=== PATIENT | male | born 1930 | race Hispanic/Latino ===

== ENCOUNTER 2016-10-09 11:29 | Inpatient (IN) | payer MEDICARE ==
[2016-10-09] MEDS ORDERED: Sodium Chloride 0.9% 1,000 ML IV ONE (11:53)
[2016-10-09] MEDS ORDERED: Sodium Chloride 0.9% 1,000 ML ONE ×2 (12:05→17:41)
[2016-10-09 12:16] LABS: BASO # 0.1 K/uL (0.0-0.2); BASO % 0.6 % (0.0-2.0); EOS # 0.1 K/uL (0.0-0.7); EOS % 0.8 % (0.0-4.0); HEMATOCRIT 31.5 % (35.0-51.0); LYMPH # 1.3 K/uL (1.0-4.3); LYMPH % 7.1 % (20.0-40.0); MEAN CORPUSCULAR HGB CONC 33.2 g/dL (33.0-37.0); MEAN PLATELET VOLUME 7.9 fL (7.2-11.7); MONO # 1.8 K/uL (0.0-0.8); MONO % 9.9 % (0.0-10.0); RED CELL DISTRIBUTION WIDTH 14.7 % (11.5-14.5)
[2016-10-09 12:25] LABS: POTASSIUM 4.8 mmol/L (3.6-5.2)
[2016-10-09 12:27] LABS: ALB/GLOB RATIO 0.9 (1.0-2.1); BILIRUBIN,TOTAL 0.7 mg/dL (0.2-1.3); TOTAL PROTEIN 6.6 g/dL (6.3-8.3)
[2016-10-09 12:31] LABS: MEAN CELL VOLUME 81.3 fL (80.0-94.0); PLATELET COUNT 455 K/uL (130-400); WHITE BLOOD COUNT 18.3 K/uL (4.8-10.8)
[2016-10-09] MEDS ORDERED: Iohexol 240 (50 ml) PO ONE (12:44)
[2016-10-09 12:48] LABS: RBC URINE 14 /hpf (0-3); URINE BACTERIA OCC (<OCC); URINE BILIRUBIN NEGATIVE (NEGATIVE); URINE BLOOD 1+ (NEGATIVE); URINE COLOR Yellow (YELLOW); URINE GLUCOSE (UA) NORMAL (Normal); URINE KETONE NEGATIVE (NEGATIVE); URINE LEUKOCYTE ESTERASE 1+ Leu/uL (Negative); URINE PROTEIN NEGATIVE (NEGATIVE); URINE UROBILINOGEN NORMAL mg/dL (0.2-1.0); WBC URINE 13 /hpf (0-5)
--- NOTE | 2016-10-09 12:53 | C.PDOC ---
History Of Present Illness 86 y/oo male PMH of HTN, DM presents to the ED with complains of left lower abdominal pain x6 days. Pain is mild and intermittent. Denies fever, nausea, vomiting, diarrhea, constipation, urinary complaints, change in appetite or any other complaints. Patient is poor historian. Time Seen by Provider: 10/09/16 11:44 Chief Complaint (Nursing): Abdominal Pain History Per: Patient History/Exam Limitations: no limitations, other (poor historian) Onset/Duration Of Symptoms: Days, Intermittent Episodes Current Symptoms Are (Timing): Still Present Severity: Mild Location Of Pain/Discomfort: LLQ Radiation Of Pain To:: None Quality Of Discomfort: "Pain" Associated Symptoms: denies: Fever, Nausea, Vomiting, Diarrhea, Constipation Exacerbating Factors: None Alleviating Factors: None Recent travel outside of the [place]: No Past Medical History Reviewed: Historical Data, Nursing Documentation, Vital Signs Vital Signs: Last Vital Signs Temp 97.5 F L 10/09/16 13:45 Pulse 88 10/09/16 17:21 Resp 12 10/09/16 17:21 BP 166/75 H 10/09/16 17:21 Pulse Ox 99 10/09/16 17:54 - Medical History PMH: Benign Prostatic Hyperplasia, HTN Denies: Chronic Kidney Disease Family History: States: Unknown Family Hx - Social History Hx Alcohol Use: No Hx Substance Use: No - Immunization History Hx Tetanus Toxoid Vaccination: Yes Hx Influenza Vaccination: Yes Hx Pneumococcal Vaccination: Yes Review Of Systems Constitutional: Negative for: Fever Cardiovascular: Negative for: Chest Pain Respiratory: Negative for: Shortness of Breath Gastrointestinal: Positive for: Abdominal Pain. Negative for: Nausea, Vomiting , Diarrhea, Constipation Genitourinary: Negative for: Dysuria, Hematuria Musculoskeletal: Negative for: Back Pain Skin: Negative for: Rash Physical Exam - Physical Exam Appears: Non-toxic, No Acute Distress Skin: Warm, Dry, No Rash Head: Atraumatic, Normacephalic Eye(s): bilateral: Normal Inspection, EOMI Nose: Normal Oral Mucosa: Moist Neck: Normal, Normal ROM, Supple Chest: Symmetrical, No Tenderness Cardiovascular: Rhythm Regular, No Murmur Respiratory: Normal Breath Sounds, No Accessory Muscle Use, No Rales, No Rhonchi , No Wheezing Gastrointestinal/Abdominal: Soft, Tenderness (LLQ tenderness), No Guarding, No Rebound Back: Normal Inspection, No CVA Tenderness Extremity: Normal ROM, No Pedal Edema Extremity: Bilateral: Atraumatic Neurological/Psych: Oriented x3, Normal Speech Gait: Unable To Assess ED Course And Treatment - Laboratory Results Result Diagrams: 10/09/16 12:04 10/09/16 12:04 Lab Interpretation: Abnormal O2 Sat by Pulse Oximetry: 99 (room air) Pulse Ox Interpretation: Normal - CT Scan/US CT abdomen Other Rad Studies (CT/US): Read By Radiologist, Radiology Report Reviewed CT/US Interpretation: Accession No. : [id number]. Patient Name / ID : DAMON GARCIA / [id number]. Exam Date : 10/09/2016 14:26:38 ( Approved ). Study Comment : Sex / Age : M / 86Y. Creator : Essence So MD. Dictator : Essence So MD. Office Machinery Or Equipment Installer : Marketing And Communications Officer : Essence So MD. Approver2 : Report Date : 10/09/2016 15:59:27. My Comment : . PROCEDURE: CT Abdomen and Pelvis without IV contrast. HISTORY: left side abdominal pain. COMPARISON: None available. TECHNIQUE: Contiguous axial images of the abdomen and pelvis. Oral contrast was administered. No IV contrast given. Coronal and Sagittal reformats generated. Radiation dose: Total exam DLP = 974.97 mGy-cm. This CT exam was performed using one or more of the following dose reduction techniques: Automated exposure control, adjustment of the mA and/or kV according to patient size, and/or use of iterative reconstruction technique. FINDINGS: There is limited evaluation of the solid organs without the administration of IV contrast. LOWER THORAX: Small right-sided pleural effusion associated consolidation. No visible pneumothorax. Partially imaged dense coronary artery and valvular calcifications. Small hiatal hernia. LIVER: Grossly unremarkable unenhanced appearance. Small hepatic ascites. GALLBLADDER AND BILE DUCTS: High-density material within the gallbladder presumed to reflect sludge and gallstones. Asymmetric questionable wall thickening involving the nondependent portion of the gallbladder. Correlate clinically for recent outside imaging to exclude possibility of vicarious excretion of contrast. PANCREAS: Atrophy. Otherwise grossly unremarkable unenhanced appearance. SPLEEN: Unremarkable unenhanced appearance. ADRENALS: 9 mm nodule, lateral limb right adrenal gland, indeterminate. 1.3 cm nodule medial limb left adrenal gland, likely adenoma. KIDNEYS AND URETERS: Bilateral hydroureter nephrosis. No obstructing calculus evident. 1.8 cm exophytic left and 2.4 cm right renal cyst. BLADDER: Urinary bladder is distended. REPRODUCTIVE: Heterogeneous markedly enlarged and irregular appearance of the prostate gland. APPENDIX: The appendix appears within normal limits of caliber. No secondary signs of acute appendicitis. BOWEL: Question gastric wall thickening however the stomach is decompressed and cannot be adequately evaluated. No evidence of small bowel obstruction. Cecal wall and terminal ileum appear thickened; correlate clinically for infectious or inflammatory etiologies. 4.8 cm short segment severe narrowing/ wall thickening of the rectosigmoid colon (sagittal image 95 ); appearance worrisome for malignant neoplasm. Recommend clinical correlation and colonoscopy if available. PERITONEUM: Small perihepatic ascites. No definite free air. LYMPH NODES: Scattered prominent mesenteric and retroperitoneal lymph nodes. VASCULATURE: Atherosclerotic calcifications. BONES: Osseous demineralization. Severe multilevel degenerative changes. Irregularity the L5 vertebral body, similar to prior study. 6 mm sclerotic focus within the posterior aspect of the T11 vertebral body. 15 x 21 mm sclerotic region involving the left anterior aspect of the L3 vertebral body. OTHER FINDINGS: None. IMPRESSION: Small right pleural effusion and associated consolidation. Small perihepatic ascites. High-density material within the gallbladder presumed to reflect sludge and gallstones. Asymmetric questionable wall thickening involving the nondependent portion of the gallbladder. Correlate clinically for recent outside imaging to exclude possibility of vicarious excretion of contrast. 9 mm indeterminate right adrenal gland nodule. 1.3 cm left adrenal gland nodule, likely adenoma. Moderate bilateral hydroureteronephrosis. No obstructing calculus identified. Bilateral renal cysts. Enlarged heterogeneous and markedly irregular appearance of the prostate gland worrisome for prostate cancer. Recommend correlation with PSA and HUBER. Question gastric wall thickening however the stomach is decompressed and cannot be adequately evaluated. Cecal wall and terminal ileum appear thickened ; correlate clinically for infectious or inflammatory etiologies. 4.8 cm segment of severe wall thickening/narrowing of the rectosigmoid colon worrisome for malignant neoplasm. Recommend clinical correlation and colonoscopy when clinically feasible. Scattered prominent mesenteric and retroperitoneal lymph nodes. Sclerotic region involving the T11 vertebral body and L3 vertebral body. Giving concern for possibility of prostate cancer, recommend further evaluation with nuclear medicine bone scan. Additional findings as above. Medical Decision Making Medical Decision Making: Plan: * CT abdomen * labs * IV fluids * urine * pepcid Progress: Patient continued to complain of pain, Morphine was ordered Labs show leukocytosis and renal failure. Patient has only one prior visit in 2014 with no RF. Patient poor historian and unsure of lab findings CT IMPRESSION: Small right pleural effusion and associated consolidation. Small perihepatic ascites. High-density material within the gallbladder presumed to reflect sludge and gallstones. Asymmetric questionable wall thickening involving the nondependent portion of the gallbladder. Correlate clinically for recent outside imaging to exclude possibility of vicarious excretion of contrast. 9 mm indeterminate right adrenal gland nodule. 1.3 cm left adrenal gland nodule, likely adenoma. Moderate bilateral hydroureteronephrosis. No obstructing calculus identified. Bilateral renal cysts. Enlarged heterogeneous and markedly irregular appearance of the prostate gland worrisome for prostate cancer. Recommend correlation with PSA and HUBER. Question gastric wall thickening however the stomach is decompressed and cannot be adequately evaluated. Cecal wall and terminal ileum appear thickened ; correlate clinically for infectious or inflammatory etiologies. 4.8 cm segment of severe wall thickening/narrowing of the rectosigmoid colon worrisome for malignant neoplasm. Recommend clinical correlation and colonoscopy when clinically feasible. Scattered prominent mesenteric and retroperitoneal lymph nodes. Sclerotic region involving the T11 vertebral body and L3 vertebral body. Giving concern for possibility of prostate cancer, recommend further evaluation with nuclear medicine bone scan. Additional findings as above. Given patient age, lab findings and abdominal pain with abnormal CT findings suggestive of infectious process and abnormal rectosigmoid wall thickening worrisome for malignancy, will admit patient. Call hospitalist who admits for Dr Rayo Spoke with hospitalist Dr Alcala who states Dr Espinoza will take case and send resident to ED. Patient to be admitted Disposition - Disposition Disposition: HOSPITALIZED Disposition Time: 16:50 Condition: STABLE - POA Present On Arrival: None - Clinical Impression Clinical Impression: LLQ abdominal pain, Renal failure, Colitis - PA / JITTERBUG OPERATOR / Resident Statement MD/DO has reviewed & agrees with the documentation as recorded. - Scribe Statement The provider has reviewed the documentation as recorded by the Rachel Arambula All medical record entries made by the Rachel were at my direction and personally dictated by me. I have reviewed the chart and agree that the record accurately reflects my personal performance of the history, physical exam, medical decision making, and the department course for this patient. I have also personally directed, reviewed, and agree with the discharge instructions and disposition. Decision To Admit - Pt Status Changed To: Hospital Disposition Of: Inpatient - Admit Certification Admit to Inpatient:: After my assessment, the patient will require hospitalization for at least two midnights. This is because of the severity of symptoms shown, intensity of services needed, and/or the medical risk in this patient being treated as an outpatient. - InPatient: Physician Admission Certification:: Patient with renal failure and abdominal pain with abnormal CT findings. Will admit to hospitalist service. - . Bed Request Type: Regular Admitting Physician: Chris Espinoza Patient Diagnosis: LLQ abdominal pain, Renal failure, Colitis
[2016-10-09] MEDS ORDERED: Iohexol 240 (50 ml) ONE (12:56)
[2016-10-09 13:08] LABS: EOSINOPHIL 1 % (0-4); NEUTROPHIL 80 % (50-75); TOTAL CELLS COUNTED 100
--- NOTE | 2016-10-09 16:01 | CT ---
PROCEDURE: CT Abdomen and Pelvis without IV contrast. HISTORY: left side abdominal pain COMPARISON: None available TECHNIQUE: Contiguous axial images of the abdomen and pelvis. Oral contrast was administered. No IV contrast given. Coronal and Sagittal reformats generated. Radiation dose: Total exam DLP = 974.97 mGy-cm. This CT exam was performed using one or more of the following dose reduction techniques: Automated exposure control, adjustment of the mA and/or kV according to patient size, and/or use of iterative reconstruction technique. FINDINGS: There is limited evaluation of the solid organs without the administration of IV contrast. LOWER THORAX: Small right-sided pleural effusion associated consolidation. No visible pneumothorax. Partially imaged dense coronary artery and valvular calcifications. Small hiatal hernia. LIVER: Grossly unremarkable unenhanced appearance. Small hepatic ascites. GALLBLADDER AND BILE DUCTS: High-density material within the gallbladder presumed to reflect sludge and gallstones. Asymmetric questionable wall thickening involving the nondependent portion of the gallbladder. Correlate clinically for recent outside imaging to exclude possibility of vicarious excretion of contrast. PANCREAS: Atrophy. Otherwise grossly unremarkable unenhanced appearance. SPLEEN: Unremarkable unenhanced appearance. ADRENALS: 9 mm nodule, lateral limb right adrenal gland, indeterminate. 1.3 cm nodule medial limb left adrenal gland, likely adenoma. KIDNEYS AND URETERS: Bilateral hydroureter nephrosis. No obstructing calculus evident. 1.8 cm exophytic left and 2.4 cm right renal cyst. BLADDER: Urinary bladder is distended. REPRODUCTIVE: Heterogeneous markedly enlarged and irregular appearance of the prostate gland. APPENDIX: The appendix appears within normal limits of caliber. No secondary signs of acute appendicitis. BOWEL: Question gastric wall thickening however the stomach is decompressed and cannot be adequately evaluated. No evidence of small bowel obstruction. Cecal wall and terminal ileum appear thickened; correlate clinically for infectious or inflammatory etiologies. 4.8 cm short segment severe narrowing/wall thickening of the rectosigmoid colon (sagittal image 95 ); appearance worrisome for malignant neoplasm. Recommend clinical correlation and colonoscopy if available. PERITONEUM: Small perihepatic ascites. No definite free air. LYMPH NODES: Scattered prominent mesenteric and retroperitoneal lymph nodes. VASCULATURE: Atherosclerotic calcifications. BONES: Osseous demineralization. Severe multilevel degenerative changes. Irregularity the L5 vertebral body, similar to prior study. 6 mm sclerotic focus within the posterior aspect of the T11 vertebral body. 15 x 21 mm sclerotic region involving the left anterior aspect of the L3 vertebral body. OTHER FINDINGS: None. IMPRESSION: Small right pleural effusion and associated consolidation. Small perihepatic ascites. High-density material within the gallbladder presumed to reflect sludge and gallstones. Asymmetric questionable wall thickening involving the nondependent portion of the gallbladder. Correlate clinically for recent outside imaging to exclude possibility of vicarious excretion of contrast. 9 mm indeterminate right adrenal gland nodule. 1.3 cm left adrenal gland nodule, likely adenoma. Moderate bilateral hydroureteronephrosis. No obstructing calculus identified. Bilateral renal cysts. Enlarged heterogeneous and markedly irregular appearance of the prostate gland worrisome for prostate cancer. Recommend correlation with PSA and HUBER. Question gastric wall thickening however the stomach is decompressed and cannot be adequately evaluated. Cecal wall and terminal ileum appear thickened ; correlate clinically for infectious or inflammatory etiologies. 4.8 cm segment of severe wall thickening/narrowing of the rectosigmoid colon worrisome for malignant neoplasm. Recommend clinical correlation and colonoscopy when clinically feasible. Scattered prominent mesenteric and retroperitoneal lymph nodes. Sclerotic region involving the T11 vertebral body and L3 vertebral body. Giving concern for possibility of prostate cancer, recommend further evaluation with nuclear medicine bone scan. Additional findings as above.
[2016-10-09] MEDS ORDERED: Sodium Chloride 0.9% 1,000 ML IV SCH ×2 (17:15→17:54)
[2016-10-09] MEDS ORDERED: Ciprofloxacin 400mg/200ml D5W 400 MG/200 ML BAG IVPB SCH (17:30)
[2016-10-09] MEDS ORDERED: Ciprofloxacin 400mg/200ml D5W 400 MG/200 ML BAG IVPB ONE (17:41)
[2016-10-09] MEDS ORDERED: Ciprofloxacin 200mg/100ml D5W 100 ML IVPB SCH (18:30)
--- NOTE | 2016-10-09 18:39 | CP.PCM.HP ---
<Keri Richardson - Last Filed: 10/09/16 19:20> History of Present Illness - History of Present Illness History of Present Illness: CC: "Pain in my belly" HPI: Patient is a 86 year old male with PMHx of HTN and DM who presents with complaint of abdominal pain. The patient was brought to the ED with his by a friend. Per patient, he has been having 10/10 lower abdominal pain for 4 days. He described the pain as pressure-like and constant. Patient states that he did not try taking any medications at home for the pain. His last bowel movement was 3 days ago and was normal. Denies bloody stool or changes in bowel movements. Patient also denies hematuria and dysuria. When asked if he has difficulty urinating he denies hematuria, dysuria, incontinence, and hesitation. Patient had prostatectomy in 1995 but he denies history of prostate cancer and states that he had the procedure to remove a mass. Patient can not recall the name of his urologist and states that he never followed up after the surgery. The patient denies fever, chills, nausea, vomiting, chest pain, palpitations, cough, recent weight loss, headache, and focal deficits. PMD: Perri PMHx: DM, HTN Surgical Hx: hernia repair, prostatectomy Family Hx: denies history of cancer in family Social Hx: Former smoker quit 30 years ago; denies EtOH and illicit drug use. Patient ambulates with a cane at home. Has a and two children. He lives with his and a friend who helps to take care of him. Allergies: no known drug allergies Present on Admission - Present on Admission Any Indicators Present on Admission: No Review of Systems - Constitutional Constitutional: As Per HPI. absent: Weight Gain, Weight Loss, Weakness - EENT Eyes: As Per HPI. absent: Blurred Vision, Change in Vision Ears: As Per HPI. absent: Dizziness Nose/Mouth/Throat: As Per HPI. absent: Sore Throat - Cardiovascular Cardiovascular: As Per HPI. absent: Chest Pain, Dyspnea, Palpitations, Pedal Edema - Respiratory Respiratory: As Per HPI. absent: Cough, Dyspnea, Wheezing, Chest Congestion - Gastrointestinal Gastrointestinal: As Per HPI, Abdominal Pain, Constipation. absent: Change in Bowel Habits, Diarrhea, Dysphagia, Nausea, Vomiting - Genitourinary Genitourinary: As Per HPI, Bladder Distension. absent: Change in Urinary Stream , Difficulty Urinating, Dysuria, Flank Pain, Hematuria, Urinary Frequency - Musculoskeletal Musculoskeletal: As Per HPI. absent: Back Pain, Muscle Weakness - Integumentary Integumentary: As Per HPI. absent: New Lesions, Rash - Neurological Neurological: As Per HPI. absent: Dizziness, Numbness - Psychiatric Psychiatric: As Per HPI - Endocrine Endocrine: As Per HPI. absent: Fatigue, Palpitations Past Patient History - Past Medical History & Family History Past Medical History?: Yes - Past Social History Smoking Status: Former Smoker - CARDIAC Hx Hypertension: Yes - PULMONARY Hx Respiratory Disorders: No - NEUROLOGICAL Hx Neurological Disorder: No - HEENT Hx HEENT Problems: No - RENAL Hx Chronic Kidney Disease: No - ENDOCRINE/METABOLIC Hx Diabetes Mellitus Type 2: Yes - HEMATOLOGICAL/ONCOLOGICAL Hx Blood Disorders: No - MUSCULOSKELETAL/RHEUMATOLOGICAL Hx Osteoarthritis: Yes - GASTROINTESTINAL Hx Gastrointestinal Disorders: No - GENITOURINARY/GYNECOLOGICAL Hx Genitourinary Disorders: No - PSYCHIATRIC Hx Substance Use: No - SURGICAL HISTORY Hx Surgeries: Yes Other/Comment: Prostate - ANESTHESIA Hx Anesthesia: No Hx Anesthesia Reactions: No Hx Malignant Hyperthermia: No Meds Allergies/Adverse Reactions: Allergies Allergy/AdvReac Type Severity Reaction Status Date / Time No Known Allergies Allergy Verified 10/09/16 11:38 Physical Exam - Constitutional Appears: No Acute Distress, Unkempt - Head Exam Head Exam: ATRAUMATIC, NORMOCEPHALIC - Eye Exam Eye Exam: EOMI. absent: Nystagmus Pupil Exam: NORMAL ACCOMODATION Additional comments: right eyelid drooping (per patient is chronic) - ENT Exam ENT Exam: Mucous Membranes Dry - Neck Exam Neck exam: Negative for: Lymphadenopathy - Respiratory Exam Respiratory Exam: Rhonchi (bilateral lower lobes), NORMAL BREATHING PATTERN. absent: Accessory Muscle Use, Wheezes, Respiratory Distress - Cardiovascular Exam Cardiovascular Exam: REGULAR RHYTHM, +S1, +S2. absent: Irregular Rhythm - GI/Abdominal Exam GI & Abdominal Exam: Distended, Firm, Normal Bowel Sounds, Pulsatile Mass ( bladder distended and palpable). absent: Guarding - Extremities Exam Extremities exam: Positive for: normal inspection, pedal pulses present. Negative for: pedal edema, tenderness - Neurological Exam Neurological exam: Alert, CN II-XII Intact, Oriented x3 - Psychiatric Exam Psychiatric exam: Normal Affect, Normal Mood - Skin Skin Exam: Dry, Intact, Normal Color, Warm Results - Vital Signs Recent Vital Signs: Last Vital Signs Temp 97.5 F L 10/09/16 13:45 Pulse 88 10/09/16 17:21 Resp 12 10/09/16 17:21 BP 166/75 H 10/09/16 17:21 Pulse Ox 99 10/09/16 17:54 - Labs Result Diagrams: 10/09/16 12:04 10/09/16 12:04 Assessment & Plan - Assessment and Plan (Free Text) Assessment: 1. Prostate mass CT abd/pelvis- enlarged heterogeneous and irregular appearance of the prostate gland worrisome for prostate cancer. Bladder distended. Nair catheter insertion was not successful in the ED. Dr Ramirez was called by ED and will attempt suprapubic catheter. Consulted Urologist Dr Ramirez- help appreciated Consulted Heme/onc Dr Mishra- nithin appreciated Morphine 2mg IV q4h prn pain Consider bone scan to evaluate for metastasis 2. Hydronephrosis CT abd/pelvis- Moderate bilateral hydroureteronephrosis, no obstructing calculus identified Likely secondary to prostate mass obstruction BUN/Cr 81/3.[address] Ramirez- nithin appreciated f/u urine culture 3. SHANNAN Basline kidney function unknown BUN/Cr 81/3.9 Consider secondary to hydronephrosis IVF NS @150 cc/hr Monitor I/Os 4. Colitis CT abd- cecal wall and terminal ileum appear thickened WBC 18.3 with left shift, afebrile Start IV Flagyl 500mg q8h and Cipro 400mg IV q12h f/u blood culture Consulted GI Dr Ponce- nithin appreciated Liquid diet until recommendations 5. Colon mass CT abd- 4.8cm segment of severe wall thickening/narrowing of the rectosigmoid colon worrisome for malignant neoplasm Consulted Surgery Dr Coley- help appreciated Consulted GI Dr Ponce- nithin appreciated Consulted Heme/onc Dr Mishra- nithin appreciated 6. HTN Continue home medication Losartan 50mg PO daily Vitals q4h Will monitor and adjust meds as needed 7. Diabetes Mellitus f/u HgA1C Accuchecks ACHS ISS Hold home metformin due to SHANNAN. Continue home Glimepiride 4mg PO BID 8. Anemia Hgb 10.5 Will monitor at this time 9. Pleural effusion CT- small right pleural effusion and associated consolidation Duonebs 3ml INH q6h [facility] 2L NC O2 as needed 10. Prophylactic measures Heparin 5000u SC q8h Protonix 40mg IV daily SCDs PT/OT evaluation Palliative care consult to discuss plan for end of life care and code status <Chris Espinoza H - Last Filed: 10/10/16 07:56> Results - Vital Signs Recent Vital Signs: Last Vital Signs Temp 97.7 F 10/10/16 07:30 Pulse 66 10/10/16 07:30 Resp 20 10/10/16 07:30 BP 156/65 H 10/10/16 07:30 Pulse Ox 99 10/10/16 07:30 - Labs Result Diagrams: 10/09/16 21:50 10/09/16 21:50 Labs: Laboratory Results - last 24 hr 10/09/16 10/09/16 10/09/16 21:43 21:50 21:50 WBC 17.8 H RBC 3.82 L Hgb 10.3 L Hct 31.0 L MCV 81.1 MCH 27.1 MCHC 33.4 RDW 15.2 H Plt Count 440 H MPV 7.3 Neut % (Auto) 83.4 H Lymph % (Auto) 5.5 L Hartley % (Auto) 9.3 Eos % (Auto) 1.1 Baso % (Auto) 0.7 Neut # 14.8 H Lymph # 1.0 Hartley # 1.7 H Eos # 0.2 Baso # 0.1 Neutrophils % (Manual) 83 H Lymphocytes % (Manual) 3 L Monocytes % (Manual) 13 H Eosinophils % (Manual) 1 Platelet Estimate Slightly increased H Anisocytosis (manual) Slight PT 15.4 H INR 1.3 APTT 29 Sodium Potassium Chloride Carbon Dioxide Anion Gap BUN Creatinine Est GFR ( Amer) Est GFR (Non-Af Amer) POC Glucose (mg/dL) 193 H Random Glucose Calcium Phosphorus Magnesium Total Bilirubin AST ALT Alkaline Phosphatase Total Protein Albumin Globulin Albumin/Globulin Ratio 10/09/16 10/10/16 21:50 07:19 WBC RBC Hgb Hct MCV MCH MCHC RDW Plt Count MPV Neut % (Auto) Lymph % (Auto) Hartley % (Auto) Eos % (Auto) Baso % (Auto) Neut # Lymph # Hartley # Eos # Baso # Neutrophils % (Manual) Lymphocytes % (Manual) Monocytes % (Manual) Eosinophils % (Manual) Platelet Estimate Anisocytosis (manual) PT INR APTT Sodium 130 L Potassium 4.6 Chloride 99 Carbon Dioxide 16 L Anion Gap 20 BUN 80 H Creatinine 3.9 H Est GFR ( Amer) 18 Est GFR (Non-Af Amer) 15 POC Glucose (mg/dL) 135 H Random Glucose 161 H Calcium 7.7 L Phosphorus 6.8 H Magnesium 1.8 Total Bilirubin 0.7 AST 13 L ALT 22 Alkaline Phosphatase 71 Total Protein 6.6 Albumin 3.0 L Globulin 3.5 Albumin/Globulin Ratio 0.9 L Attending/Attestation - Attestation I have personally seen and examined this patient.: Yes I have fully participated in the care of the patient.: Yes I have reviewed all pertinent clinical information: Yes Notes (Text): Medical attending: Patient was seen and examined by me in the emergency room with certified medical coding specialist. At the CAT scan of the abdomen and returned and it showed a lot of findings including a very distended bladder with bilateral hydronephrosis. There are areas of his colon that are very concerning for malignancy as well. There also suggested findings of possible colitis as well. He does have elevated white blood cell count 17.9, abx have been started and these were later changed since the patient has a creatinine that is also elevated. On exam it seems like his abdomen was quite full with palpation and considering his distended bladder on the CAT scan we asked for a Nair catheter to be placed however very late in the night we were informed that they were not able to pass the Nair catheter. At this time were still pending on a decision if the patient should have a cystoscopy versus a suprapubic catheter placement. Per review of older notes his creatinine about 2 years ago was under 1, at this time it's 3.9 - CT report suggest a very enlarged protate and possible malignancy as well. Unfortunately patient is a poor historian and is not able to explain to us much. So at this time because of these extensive finding will need to reach out to family as well as the patient's PMD
--- NOTE | 2016-10-09 19:25 | CP.PCM.CON ---
History of Present Illness - History of Present Illness History of Present Illness: General Surgery Consult Re: Colon mass HPI: 86M presents to ED C/O lower abdominal pain. Pt is not completely reliable as a historian. States he has had constant 10/10 lower abd pain x 5 days. Never had this pain before. Last BM was 4 days ago and was soft and dark. Denies blood in BM, hematuria and dysuria. States when he urinates, frequently only little dribbles come out . Per pt, had prostate surgery in 1995 to remove a mass, denies cancer. States his last colonoscopy was 6 months ago at this hospital but he cannot say who the doctor was or what the results were. There are no records of a hospital visit here for colonoscopy. Denies F/C , N/V, SOB, chest pain, recent weight loss. Currently, reports improving abd pain. PMH: DM, HTN PSH: prostate surgery, CEA, Hernia repair SH: Former smoker quit 30 years ago. Denies EtOH and drug use. All: NKDA Meds: See AUG, on ASA 81mg Review of Systems - Review of Systems All systems: reviewed and no additional remarkable complaints except (as per HPI ) Past Patient History - Past Medical History & Family History Past Medical History?: Yes - Past Social History Smoking Status: Former Smoker - CARDIAC Hx Hypertension: Yes - PULMONARY Hx Respiratory Disorders: No - NEUROLOGICAL Hx Neurological Disorder: No - HEENT Hx HEENT Problems: No - RENAL Hx Chronic Kidney Disease: No - ENDOCRINE/METABOLIC Hx Diabetes Mellitus Type 2: Yes - HEMATOLOGICAL/ONCOLOGICAL Hx Blood Disorders: No - MUSCULOSKELETAL/RHEUMATOLOGICAL Hx Osteoarthritis: Yes - GASTROINTESTINAL Hx Gastrointestinal Disorders: No - GENITOURINARY/GYNECOLOGICAL Hx Genitourinary Disorders: No - PSYCHIATRIC Hx Substance Use: No - SURGICAL HISTORY Hx Surgeries: Yes Other/Comment: Prostate - ANESTHESIA Hx Anesthesia: No Hx Anesthesia Reactions: No Hx Malignant Hyperthermia: No Meds Allergies/Adverse Reactions: Allergies Allergy/AdvReac Type Severity Reaction Status Date / Time No Known Allergies Allergy Verified 10/09/16 11:38 - Medications Medications: Current Medications Albuterol/Ipratropium (Duoneb 3 Mg/0.5 Mg (3 Ml) Ud) 3 ml INH RQ6 [facility] Aspirin (Aspirin Chewable) 81 mg PO DAILY [facility] Gabapentin (Neurontin) 800 mg PO TID [facility] Glimepiride (Amaryl) 4 mg PO BID [facility] Heparin Sodium (Porcine) (Heparin) 5,000 units SC Q8 [facility] Ciprofloxacin (Cipro 400mg/200ml Dsw) 400 mg in 200 mls @ 133 mls/hr IVPB Q12H [facility] Last Admin: 10/09/16 18:28 Dose: Not Given Sodium Chloride (Sodium Chloride 0.9%) 1,000 mls @ 150 mls/hr IV .Q6H40M [facility] Metronidazole (Flagyl) 500 mg in 100 mls @ 100 mls/hr IVPB Q8 [facility] Ciprofloxacin (Cipro 200mg/100ml D5w) 100 mls @ 100 mls/hr IVPB Q18H [facility] Insulin Human Regular (Novolin R) 0 unit SC ACHS [facility] PRN Reason: Protocol Losartan Potassium (Cozaar) 50 mg PO DAILY [facility] Morphine Sulfate (Morphine) 2 mg IVP Q4 PRN PRN Reason: Pain, severe (8-10) Pantoprazole Sodium (Protonix Inj) 40 mg IVP DAILY [facility] Physical Exam - Constitutional Appears: Non-toxic, No Acute Distress - Head Exam Head Exam: ATRAUMATIC, NORMOCEPHALIC - Eye Exam Eye Exam: EOMI. absent: Scleral icterus - ENT Exam ENT Exam: Mucous Membranes Dry Additional comments: trachea midline - Respiratory Exam Respiratory Exam: NORMAL BREATHING PATTERN. absent: Respiratory Distress - Cardiovascular Exam Cardiovascular Exam: RRR, +S1, +S2 - GI/Abdominal Exam GI & Abdominal Exam: Firm (in lower quadrants over midline), Soft, Tenderness ( mild in lower abdomen). absent: Distended, Guarding, Rebound, Rigid - Rectal Exam Rectal Exam: absent: Black Stool, Bloody Stool, Fecal Impaction Additional comments: normal location of prostate is irregular, spongy - Extremities Exam Extremities exam: Positive for: normal capillary refill. Negative for: calf tenderness, pedal edema - Back Exam Back exam: absent: CVA tenderness (L), CVA tenderness (R) - Neurological Exam Neurological exam: Alert, Oriented x3 - Psychiatric Exam Psychiatric exam: Normal Affect, Normal Mood - Skin Skin Exam: Dry, Warm Results - Vital Signs Recent Vital Signs: Last Vital Signs Temp 97.5 F L 10/09/16 13:45 Pulse 88 10/09/16 17:21 Resp 12 10/09/16 17:21 BP 166/75 H 05/03/17 17:21 Pulse Ox 99 10/09/16 18:19 - Labs Result Diagrams: 10/09/16 12:04 10/09/16 12:04 - Imaging and Cardiology CT scan - abdomen Status: Image reviewed by me, Report reviewed by me Assessment & Plan - Assessment and Plan (Free Text) Assessment: 86M with possible colon mass Plan: F/U GI consult. Will need colonoscopy to evaluate for mass/biopsy F/U Uro consult, possible suprapubic cath placement Abx per medical team IVF NPO Analgesia D/W Dr. Vianca Pagan PGY3
--- NOTE | 2016-10-09 20:05 | CP.PCM.PN ---
Subjective - Date & Time of Evaluation Date of Evaluation: 10/09/16 Time of Evaluation: 20:00 - Subjective Subjective: Asked to place garcia cath after ed staff failed in there attempt to pass cath. Attempt to pass cath onsucessful.Since pts bladder is not palpably distended and pt is comfortable either clear pt for cysto under anestesia or ask IR to place suprapubic cath under us guidance. Please notify me when pt cleared. Objective - Vital Signs/Intake and Output Vital Signs (last 24 hours): Temp Pulse Resp BP Pulse Ox 97.4 F L 74 20 175/71 H 99 10/09/16 19:30 10/09/16 19:30 10/09/16 19:30 10/09/16 19:30 10/09/16 19:30 - Medications Medications: Current Medications Albuterol/Ipratropium (Duoneb 3 Mg/0.5 Mg (3 Ml) Ud) 3 ml INH RQ6 [facility] Aspirin (Aspirin Chewable) 81 mg PO DAILY [facility] Gabapentin (Neurontin) 800 mg PO TID [facility] Glimepiride (Amaryl) 4 mg PO BID [facility] Heparin Sodium (Porcine) (Heparin) 5,000 units SC Q8 [facility] Ciprofloxacin (Cipro 400mg/200ml Dsw) 400 mg in 200 mls @ 133 mls/hr IVPB Q12H [facility] Last Admin: 10/09/16 18:28 Dose: Not Given Sodium Chloride (Sodium Chloride 0.9%) 1,000 mls @ 150 mls/hr IV .Q6H40M [facility] Metronidazole (Flagyl) 500 mg in 100 mls @ 100 mls/hr IVPB Q8 [facility] Ciprofloxacin (Cipro 200mg/100ml D5w) 100 mls @ 100 mls/hr IVPB Q18H [facility] Insulin Human Regular (Novolin R) 0 unit SC ACHS [facility] PRN Reason: Protocol Losartan Potassium (Cozaar) 50 mg PO DAILY [facility] Morphine Sulfate (Morphine) 2 mg IVP Q4 PRN PRN Reason: Pain, severe (8-10) Pantoprazole Sodium (Protonix Inj) 40 mg IVP DAILY [facility]
[2016-10-09] MEDS: Sodium Chloride 0.9% 1,000 ML IV SCH ×2 (20:26→22:07)
--- NOTE | 2016-10-09 21:40 | CP.PCM.PN ---
Subjective - Date & Time of Evaluation Date of Evaluation: 10/09/16 Time of Evaluation: 21:34 - Subjective Subjective: HOUSE DOC NOTE: -Patient was assessed this evening. Patient was not in acute distress, pain was well controlled. -The hospitalist team spoke with Dr. Lee and Dr. Mclean regarding coordination of care. Possibility of suprapubic catheter was discussed, to be further discussed this morning between IR, Urology, and Hospitalist team. Plan for coordinated approach for suprapubic catheter/cystoscopy between Urology and IR. -Changing antibiotic due to renal insufficiency. Avoid nephrotoxic medication. Stop Ceftriaxone. Start Rocephin 1Gm IVPB qd. -Keep patient NPO until resolution of bladder distention. -Pre-op clearance in processes (EKG, labs, CXR). Objective - Vital Signs/Intake and Output Vital Signs (last 24 hours): Temp Pulse Resp BP Pulse Ox 97.4 F L 74 20 175/71 H 99 10/09/16 19:30 10/09/16 19:30 10/09/16 19:30 10/09/16 19:30 10/09/16 19:30 - Medications Medications: Current Medications Albuterol/Ipratropium (Duoneb 3 Mg/0.5 Mg (3 Ml) Ud) 3 ml INH RQ6 [facility] Aspirin (Aspirin Chewable) 81 mg PO DAILY [facility] Gabapentin (Neurontin) 800 mg PO TID [facility] Metronidazole (Flagyl) 500 mg in 100 mls @ 100 mls/hr IVPB Q8 [facility] Sodium Chloride (Sodium Chloride 0.9%) 1,000 mls @ 50 mls/hr IV .Q20H [facility] Last Admin: 10/09/16 20:26 Dose: Not Given Ceftriaxone Sodium 1 gm/ (Sodium Chloride) 100 mls @ 100 mls/hr IVPB DAILY [facility] Insulin Human Regular (Novolin R) 0 unit SC ACHS [facility] PRN Reason: Protocol Morphine Sulfate (Morphine) 2 mg IVP Q4 PRN PRN Reason: Pain, severe (8-10) Pantoprazole Sodium (Protonix Inj) 40 mg IVP DAILY [facility]
[2016-10-09 21:56] LABS: BASO # 0.1 K/uL (0.0-0.2); BASO % 0.7 % (0.0-2.0); EOS # 0.2 K/uL (0.0-0.7); EOS % 1.1 % (0.0-4.0); LYMPH % 5.5 % (20.0-40.0); MEAN CELL VOLUME 81.1 fL (80.0-94.0); MEAN CORPUSCULAR HEMOGLOBIN 27.1 pg (27.0-31.0); MEAN CORPUSCULAR HGB CONC 33.4 g/dL (33.0-37.0); MEAN PLATELET VOLUME 7.3 fL (7.2-11.7); MONO # 1.7 K/uL (0.0-0.8); MONO % 9.3 % (0.0-10.0); PLATELET COUNT 440 K/uL (130-400); RED CELL DISTRIBUTION WIDTH 15.2 % (11.5-14.5); WHITE BLOOD COUNT 17.8 K/uL (4.8-10.8)
[2016-10-09] MEDS: (Novolin R) Insulin Human Regular 100 units/ml vial SC SCH (22:03)
[2016-10-09 22:04] LABS: INR 1.3
[2016-10-09 22:09] LABS: POTASSIUM 4.6 mmol/L (3.6-5.2)
[2016-10-09 22:11] LABS: ALB/GLOB RATIO 0.9 (1.0-2.1); BILIRUBIN,TOTAL 0.7 mg/dL (0.2-1.3); TOTAL PROTEIN 6.6 g/dL (6.3-8.3)
[2016-10-09 22:12] LABS: CALCIUM 7.7 mg/dl (8.6-10.4); MAGNESIUM 1.8 mg/dL (1.6-2.3); PHOSPHOROUS 6.8 mg/dL (2.5-4.5)
[2016-10-09 22:19] LABS: EOSINOPHIL 1 % (0-4); NEUTROPHIL 83 % (50-75); TOTAL CELLS COUNTED 100
--- NOTE | 2016-10-09 22:28 | CP.PCM.PN ---
Subjective - Date & Time of Evaluation Date of Evaluation: 10/09/16 Time of Evaluation: 22:20 - Subjective Subjective: Discussed with Dr Cavazos. Reeviewed options,with Him. I can procede with cystoscopy if medically acceptable. Pt may have Suprapubic cystotomy,or have bilat nephrostomies. Since bladder is not palpably distended suprapubic cystotomy might require us or ct or us guidance Please advise how you would like to procede. Ashley Objective - Vital Signs/Intake and Output Vital Signs (last 24 hours): Temp Pulse Resp BP Pulse Ox 97.4 F L 74 20 175/71 H 99 10/09/16 19:30 10/09/16 19:30 10/09/16 19:30 10/09/16 19:30 10/09/16 19:30 - Medications Medications: Current Medications Albuterol/Ipratropium (Duoneb 3 Mg/0.5 Mg (3 Ml) Ud) 3 ml INH RQ6 [facility] Aspirin (Aspirin Chewable) 81 mg PO DAILY [facility] Gabapentin (Neurontin) 800 mg PO TID [facility] Metronidazole (Flagyl) 500 mg in 100 mls @ 100 mls/hr IVPB Q8 [facility] Sodium Chloride (Sodium Chloride 0.9%) 1,000 mls @ 50 mls/hr IV .Q20H [facility] Last Admin: 10/09/16 22:07 Dose: 50 mls/hr Ceftriaxone Sodium 1 gm/ (Sodium Chloride) 100 mls @ 100 mls/hr IVPB DAILY [facility] Insulin Human Regular (Novolin R) 0 unit SC ACHS [facility] PRN Reason: Protocol Last Admin: 10/09/16 22:03 Dose: Not Given Morphine Sulfate (Morphine) 2 mg IVP Q4 PRN PRN Reason: Pain, severe (8-10) Pantoprazole Sodium (Protonix Inj) 40 mg IVP DAILY [facility] - Labs Labs: 10/09/16 21:50 10/09/16 21:50 PT 15.4 SECONDS (9.7-12.2) H 10/09/16 21:50 INR 1.3 10/09/16 21:50 APTT 29 SECONDS (21-34) 10/09/16 21:50
[2016-10-09] MEDS: metroNIDAZOLE IV 500 mg/100 ml 500 MG/100 ML BAG IVPB SCH (23:28)
[2016-10-10] MEDS: Albuterol-Ipratrop 3 mg / 0.5 (3 ml) UD INH SCH ×4 (02:07→19:42)
[2016-10-10] MEDS: metroNIDAZOLE IV 500 mg/100 ml 500 MG/100 ML BAG IVPB SCH ×3 (05:10→22:14)
--- NOTE | 2016-10-10 07:34 | CP.PCM.PN ---
<Lakisha Riossarah - Last Filed: 10/10/16 13:18> Subjective - Date & Time of Evaluation Date of Evaluation: 10/10/16 Time of Evaluation: 08:56 - Subjective Subjective: PGY 1 Medicine Note- Dr. Espinoza's service Pt seen and examined in no acute distress. Patient states that he abdominal pressure began 6 days ago and then intensified 2-3 days ago. Patient denies any current pain in the abdominal or suprapubic region, dysuria or hematuria. Patient accompanied by sales representative rural [employer] Rik Goyal who lives in the same building as patient. Mr. Goyal stated that he checks in on patient and patient's daily and is one of the few constant people in the patient's life. He would like to assume the role of power of productivity engineer as the patient's family is not involved in patient's life. He denies fevers, chills, nausea, vomiting, diarrhea, constipation at this time. Objective - Vital Signs/Intake and Output Vital Signs (last 24 hours): Temp Pulse Resp BP Pulse Ox 97.7 F 66 20 156/65 H 99 10/10/16 07:30 10/10/16 07:30 10/10/16 07:30 10/10/16 07:30 10/10/16 07:30 Intake and Output: 10/10/16 10/10/16 06:59 18:59 Intake Total 350 Balance 350 - Medications Medications: Current Medications Albuterol/Ipratropium (Duoneb 3 Mg/0.5 Mg (3 Ml) Ud) 3 ml INH RQ6 [facility] Last Admin: 10/10/16 02:07 Dose: Not Given Aspirin (Aspirin Chewable) 81 mg PO DAILY [facility] Gabapentin (Neurontin) 800 mg PO TID [facility] Metronidazole (Flagyl) 500 mg in 100 mls @ 100 mls/hr IVPB Q8 [facility] Last Admin: 10/10/16 05:10 Dose: 100 mls/hr Sodium Chloride (Sodium Chloride 0.9%) 1,000 mls @ 50 mls/hr IV .Q20H [facility] Last Admin: 10/09/16 22:07 Dose: 50 mls/hr Ceftriaxone Sodium 1 gm/ (Sodium Chloride) 100 mls @ 100 mls/hr IVPB DAILY [facility] Last Admin: 05/03/17 22:25 Dose: 100 mls/hr Insulin Human Regular (Novolin R) 0 unit SC ACHS [facility] PRN Reason: Protocol Last Admin: 10/09/16 22:03 Dose: Not Given Morphine Sulfate (Morphine) 2 mg IVP Q4 PRN PRN Reason: Pain, severe (8-10) Pantoprazole Sodium (Protonix Inj) 40 mg IVP DAILY [facility] - Labs Labs: 10/09/16 21:50 10/09/16 21:50 PT 15.4 SECONDS (9.7-12.2) H 10/09/16 21:50 INR 1.3 10/09/16 21:50 APTT 29 SECONDS (21-34) 10/09/16 21:50 - Constitutional Appears: Non-toxic, No Acute Distress - Head Exam Head Exam: ATRAUMATIC, NORMAL INSPECTION, NORMOCEPHALIC - Eye Exam Eye Exam: EOMI, Normal appearance, PERRL Pupil Exam: NORMAL ACCOMODATION - ENT Exam ENT Exam: Mucous Membranes Moist - Neck Exam Neck Exam: Full ROM - Respiratory Exam Respiratory Exam: NORMAL BREATHING PATTERN. absent: Wheezes - Cardiovascular Exam Cardiovascular Exam: +S1, +S2 - GI/Abdominal Exam GI & Abdominal Exam: Distended, Firm, Soft, Normal Bowel Sounds. absent: Guarding, Tenderness - Exam Exam: Bladder Distension - Extremities Exam Extremities Exam: Full ROM, Normal Capillary Refill. absent: Pedal Edema, Tenderness - Back Exam Back Exam: Full ROM - Neurological Exam Neurological Exam: Alert, Awake, CN II-XII Intact, Oriented x3 - Psychiatric Exam Psychiatric exam: Normal Affect, Normal Mood - Skin Skin Exam: Dry, Intact, Normal Color, Warm Assessment and Plan - Assessment and Plan (Free Text) Assessment: 1. Prostate mass CT abd/pelvis- enlarged heterogeneous and irregular appearance of the prostate gland worrisome for prostate cancer. Bladder distended. Nair catheter insertion was not successful in the ED after several attempts Consulted Urologist Dr Ramirez- Would like to go for cystoscopy 5/5 around noon. If unsuccessful, will try for suprapubic catheter. F/U recommendations. Pre- operative EKG, Chest Xray ordered. Consulted Heme/onc Dr Mishra- help appreciated Morphine 2mg IV q4h prn pain Consider bone scan to evaluate for metastasis Detsky score 10; Class II 7% complications for cardiac risk in noncardiac surgical procedure. 2. Hydronephrosis CT abd/pelvis- Moderate bilateral hydroureteronephrosis, no obstructing calculus identified Likely secondary to prostate mass obstruction BUN/Cr 81/3.[address] Ramirez- See recommendations above. f/u urine culture 3. SHANNAN Basline kidney function unknown BUN/Cr Elevated Consider secondary to hydronephrosis IVF NS @150 cc/hr Monitor I/Os 4. Colitis CT abd- cecal wall and terminal ileum appear thickened WBC stable mildly decreased with left shift, afebrile Start IV Flagyl 500mg q8h and Cipro 400mg IV q12h f/u blood culture Consulted GI Dr Ponce- help appreciated . Patient would benefit from colonscopy. 5. Colon mass CT abd- 4.8cm segment of severe wall thickening/narrowing of the rectosigmoid colon worrisome for malignant neoplasm Patient would benefit from colonscopy. Consulted Surgery Dr Coley- F/U recommendations Consulted GI Dr Ponce- F/U recommendations Consulted Heme/onc Dr Mishra- F/U recommendations 6. HTN Continue home medication Losartan 50mg PO daily Vitals q4h Will monitor and adjust meds as needed 7. Diabetes Mellitus HgA1C 6.6 Accuchecks ACHS ISS Hold home metformin due to SHANNAN. Continue home Glimepiride 4mg PO BID 8. Anemia Hgb 9.9 Will monitor at this time 9. Pleural effusion CT- small right pleural effusion and associated consolidation Duonebs 3ml INH q6h [facility] 2L NC O2 as needed 10. Prophylactic measures Protonix 40mg IV daily SCDs PT/OT evaluation Palliative care consult to discuss plan for end of life care and code status with patient and sales representative [employer] <Chris Espinoza H - Last Filed: 10/10/16 14:06> Objective - Vital Signs/Intake and Output Vital Signs (last 24 hours): Temp Pulse Resp BP Pulse Ox 97.7 F 76 20 156/65 H 99 10/10/16 07:30 10/10/16 08:59 10/10/16 07:30 10/10/16 07:30 10/10/16 07:30 Intake and Output: 10/10/16 10/10/16 06:59 18:59 Intake Total 350 Balance 350 - Medications Medications: Current Medications Albuterol/Ipratropium (Duoneb 3 Mg/0.5 Mg (3 Ml) Ud) 3 ml INH RQ6 [facility] Last Admin: 10/10/16 08:57 Dose: 3 ml Aspirin (Aspirin Chewable) 81 mg PO DAILY [facility] Last Admin: 10/10/16 09:19 Dose: Not Given Bisacodyl (Dulcolax) 10 mg PO ONCE ONE Stop: 10/10/16 17:01 Gabapentin (Neurontin) 100 mg PO TID [facility] Metronidazole (Flagyl) 500 mg in 100 mls @ 100 mls/hr IVPB Q8 [facility] Last Admin: 10/10/16 13:17 Dose: 100 mls/hr Sodium Chloride (Sodium Chloride 0.9%) 1,000 mls @ 50 mls/hr IV .Q20H [facility] Last Admin: 10/09/16 22:07 Dose: 50 mls/hr Ceftriaxone Sodium 1 gm/ (Sodium Chloride) 100 mls @ 100 mls/hr IVPB DAILY [facility] Last Admin: 10/10/16 09:22 Dose: 100 mls/hr Insulin Human Regular (Novolin R) 0 unit SC ACHS [facility] PRN Reason: Protocol Last Admin: 10/10/16 11:10 Dose: Not Given Metoclopramide HCl (Reglan) 5 mg IVP Q8 [facility] Last Admin: 10/10/16 13:19 Dose: 5 mg Morphine Sulfate (Morphine) 2 mg IVP Q4 PRN PRN Reason: Pain, severe (8-10) Pantoprazole Sodium (Protonix Inj) 40 mg IVP DAILY [facility] Last Admin: 10/10/16 09:22 Dose: 40 mg Polyethylene Glycol/Electrolytes (Golytely) 4,000 ml PO ONCE ONE Stop: 10/10/16 14:31 - Labs Labs: 10/10/16 08:48 10/10/16 08:48 PT 15.4 SECONDS (9.7-12.2) H 10/09/16 21:50 INR 1.3 10/09/16 21:50 APTT 29 SECONDS (21-34) 10/09/16 21:50 Attending/Attestation - Attestation I have personally seen and examined this patient.: Yes I have fully participated in the care of the patient.: Yes I have reviewed all pertinent clinical information, including history, physical exam and plan: Yes Notes (Text): Medical attending: Patient was seen and examined by me, agrees the above note by medical clerical assistant. The patient's sales representative [employer] was in the room. His knee was Yoni and he also helped answer the questions. The patient was awake he was alert and he knew where he was at and he knew his birthday. He was answering almost every question we asked him correctly. So we updated the patient as well as the patient's sales representative rural [employer] with regards to what was going on so far. As mentioned before the emergency room overnight tried to pass a Nair catheter however it was not successful and urology also try to pass a Nair catheter however this was not successful either. I spoke with Dr. Lee today and after we discussed the case she explained that he would prefer to try to do cystoscopy first before attempting to do a suprapubic catheter. He explained to me that he would like to do this sometime tomorrow. Furthermore I spoke with GI, Dr. Ponce and he would like to do a colonoscopy, however because of the size of the prostate and concern for cancer he would like to do the colonoscopy before urology does the cystoscopy. This is due to concerns for bleeding. So GI is going to tried to do the procedure early in the morning. In the meantime patient is on a liquid diet, and will be nothing by mouth at midnight. Continue with the IV antibody except this time. From what I being told by the caregiver, the patient's is also in the hospital as well and she is also very sick I'm told however I'm not the physician taking care of her. Thank you very much, Chris Espinoza
[2016-10-10 08:56] LABS: BASO # 0.1 K/uL (0.0-0.2); BASO % 0.3 % (0.0-2.0); EOS # 0.3 K/uL (0.0-0.7); EOS % 1.9 % (0.0-4.0); HEMATOCRIT 30.9 % (35.0-51.0); LYMPH # 1.2 K/uL (1.0-4.3); LYMPH % 7.4 % (20.0-40.0); MEAN CELL VOLUME 81.4 fL (80.0-94.0); MEAN CORPUSCULAR HEMOGLOBIN 26.1 pg (27.0-31.0); MEAN CORPUSCULAR HGB CONC 32.1 g/dL (33.0-37.0); MEAN PLATELET VOLUME 8.1 fL (7.2-11.7); MONO # 1.7 K/uL (0.0-0.8); MONO % 10.2 % (0.0-10.0); PLATELET COUNT 436 K/uL (130-400); RED CELL DISTRIBUTION WIDTH 15.1 % (11.5-14.5); WHITE BLOOD COUNT 16.7 K/uL (4.8-10.8)
--- NOTE | 2016-10-10 08:57 | RAD ---
HISTORY: pre-op clearance COMPARISON: No prior. FINDINGS: LUNGS: Mild venous congestion. Right hilar prominence. Biapical pleural thickening. PLEURA: No significant pleural effusion identified, no pneumothorax apparent. CARDIOVASCULAR: Normal. OSSEOUS STRUCTURES: No significant abnormalities. VISUALIZED UPPER ABDOMEN: Normal. OTHER FINDINGS: None. IMPRESSION: Mild venous congestion.
[2016-10-10 09:04] LABS: POTASSIUM 4.6 mmol/L (3.6-5.2)
[2016-10-10 09:06] LABS: ALB/GLOB RATIO 0.9 (1.0-2.1); BILIRUBIN,TOTAL 0.6 mg/dL (0.2-1.3); TOTAL PROTEIN 6.4 g/dL (6.3-8.3)
[2016-10-10 09:07] LABS: CALCIUM 7.7 mg/dl (8.6-10.4)
[2016-10-10] MEDS: (Novolin R) Insulin Human Regular 100 units/ml vial SC SCH ×4 (10:29→22:27)
[2016-10-10 10:33] LABS: MAGNESIUM 1.9 mg/dL (1.6-2.3); PHOSPHOROUS 7.3 mg/dL (2.5-4.5)
--- NOTE | 2016-10-10 10:50 | CON ---
DATE: 10/09/2016 REASON FOR CONSULTATION: Inability to pass a Nair catheter. HISTORY OF PRESENT ILLNESS: The patient came because of vague abdominal complaints. He was worked u p in the Emergency Room. Attempt was made to pass a Nair catheter by the ER staff and was unsuccess ful. The patient had a CAT scan of the abdomen, which shows bilateral hydronephrosis and a large dis tended bladder and an irregular enlarged prostate, questionable rectal masses. He says he has been v oiding at home, but only in small amounts. This has been going on for some time. He denies any feve r or chills at home. REVIEW OF SYSTEMS: GENITOURINARY: The patient has a history of slow stream and frequency of urination, voiding small am ounts. Denies any previous instrumentation or evaluation. PULMONARY: The patient says he has no shortness of breath, wheezing or cough. CARDIAC: The patient has no palpitations, chest pains, no history of cardiac disease. GASTROINTESTINAL: The patient has no change in bowel habits. No nauseousness or diarrhea. Denies r ectal bleeding, but he is complaining of vague abdominal pain. ORTHOPEDIC: No history of fracture or orthopedic injury. INTEGUMENT: No history of rashes or skin lesions. NEUROLOGICAL: The patient has no history of tremors or weakness in any extremities, no history of CV A. I have also reviewed the CAT scan and the laboratory data, which shows an elevated white count and th e chemistry showed an elevated creatinine. I have discussed this case with the resident. An attempt was made to pass a Nair catheter. We were unable to pass the Nair catheter per urethra. Attempt was made to dilate with filiforms and follow ers. This was unsuccessful. The patient tolerated this procedure well. I suggest that the patient undergo either percutaneous suprapubic cystoscopy in attempt at Nair catheter placement and/or possi ble bilateral nephrostomies. Discussed this case with Dr. Cavazos and Dr. Espinoza. Yung Ramirez MD cc: [id number] TT: 10/10/2016 10:50:10 Confirmation # [id number] Dictation # [id number] en
[2016-10-10 11:19] LABS: EOSINOPHIL 3 % (0-4); NEUTROPHIL 78 % (50-75); TOTAL CELLS COUNTED 100
--- NOTE | 2016-10-10 13:41 | PN ---
DATE: 10/10/2016 LOCATION: 356, bed B. This is an 86-year-old male, seen and examined in rounds today without significant clinical changes. Appeared to be awake, alert, oriented, tolerating oral intake with intermittent periods of abdominal pain on examination. The entire chart is reviewed including, but not limited to, the most recent lab and radiology study r esults, current and previous medication lists, current and previous medical events. Case discussed a t length with the staff on the floor. Today's lab results showed leukocytosis of 16.7 with low hemoglobin 9.9, low hematocrit 30.9 with low indices but with thrombocytosis. BUN elevated to 85 with creatinine 4.4 with increased blood glucos e level 168. His calcium is low 7.7 with increased phosphorus 7.3 with low albumin 3.0. PSA elevate d to 216, but with normal lipase level. It has to be reported that all the available radiology study reports are seen and the case discussed with the admitting medical team at the time of my consultation on 10/09/2016. PHYSICAL EXAMINATION: GENERAL: An 86-year-old male. VITAL SIGNS: Afebrile with pulse of 70, respiratory rate 20-22, blood pressure 140/68. HEENT: Showed pale, dry oral mucoid membrane. Nonicteric sclerae. LUNGS: Few scattered crepitation, decreased air entry at bases. HEART: Positive S1 and S2. ABDOMEN: Soft. Bowel sounds are present. No mass or organomegaly. No rebound tenderness or guardi ng. RECTAL: The patient refused. EXTREMITIES: With mild lower extremities edematous changes. No clubbing or cyanosis. NEUROLOGIC: No reported new neurological deficits, sensory or motor. IMPRESSION: 1. Anemia. 2. Reexacerbation of peptic ulcer disease. 3. Abnormal CAT scan of the abdomen and the pelvis with possible prostatic cancer and/or possible co cory cancer. 4. Renal insufficiency with near renal failure. 5. Past medical history including, but not limited to, hypertension and benign prostatic hypertrophy as per the record. 6. Electrolyte imbalance with hyperphosphatemia, hypocalcemia. SUGGESTION: 1. Agree with your plan. 2. Cancer markers. 3. Schedule for colonoscopy at a.m. after adequate preparation. Salah Kris MD cc: 14 TT: 10/10/2016 13:40:25 Confirmation # [id number] Dictation # [id number] en
[2016-10-10] MEDS ORDERED: Peg-Electrolyte Oral Soln 4L (Golytely) PO ONE (14:30)
--- NOTE | 2016-10-10 15:11 | CP.PCM.CON ---
History of Present Illness - History of Present Illness History of Present Illness: Palliative consult for goals of care discussion, code status ordered by Debra TARANGO Patient is a 86 yo [place] male admitted with abdominal pain of 10/10 over the last 4 days. Patient describes pain as a constant, pressuring pain. The CT abdomen was significant for possible malignant sigmoid colon. Doctor Kris called on consult for GI. Colonscopy was suggested. 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 HbA1C elevated. WBC 16.7. Rocephin and Flagyl IV initiated as is Morphine IV for pain. PMH: HTN, DM, prostatectomy, Soc. Hx: lives at home with and family friend who helps them with ADLs, has two children , unable to provide contact info on children, admitted to hospital at present as well Fam. Hx: Unknown Review of Systems - Constitutional Constitutional: Fatigue - EENT Eyes: absent: As Per HPI, Blind Spots, Blurred Vision, Change in Vision, Decreased Night Vision, Diplopia, Discharge, Dry Eye, Exophthalmos, Floaters, Irritation, Itchy Eyes, Loss of Peripheral Vision, Pain, Photophobia, Requires Corrective Lenses, Sees Flashes, Spots in Vision, Tunnel Vision, Other Visual Disturbances, Loss of Vision, Other Ears: absent: As Per HPI, Decreased Hearing, Ear Discharge, Ear Pain, Tinnitus, Abnormal Hearing, Disequilibrium, Dizziness, Other Nose/Mouth/Throat: absent: As Per HPI, Epistaxis, Nasal Congestion, Nasal Discharge, Nasal Obstruction, Nasal Trauma, Nose Pain, Post Nasal Drip, Sinus Pain, Sinus Pressure, Bleeding Gums, Change in Voice, Dental Pain, Dry Mouth, Dysphagia, Halitosis, Hoarsness, Lip Swelling, Mouth Lesions, Mouth Pain, Odynophagia, Sore Throat, Throat Swelling, Tongue Swelling, Facial Pain, Neck Pain, Neck Mass, Other - Cardiovascular Cardiovascular: absent: As Per HPI, Acrocyanosis, Chest Pain, Chest Pain at Rest , Chest Pain with Activity, Claudication, Diaphoresis, Dyspnea, Dyspnea on Exertion, Edema, Irregular Heart Rhythm, Pain Radiating to Arm/Neck/Jaw, Leg Edema, Leg Ulcers, Lightheadedness, Orthopnea, Palpitations, Paroxysmal Nocturnal Dyspnea, Pedal Edema, Radiating Pain, Rapid Heart Rate, Slow Heart Rate, Syncope, Other - Respiratory Respiratory: absent: As Per HPI, Cough, Dyspnea, Hemoptysis, Dyspnea on Exertion , Wheezing, Snoring, Stridor, Pain on Inspiration, Chest Congestion, Excessive Mucous Production, Change in Mucous Color, Pain with Coughing, Other - Gastrointestinal Gastrointestinal: Constipation - Genitourinary Genitourinary: Urinary Frequency, Voiding Freq/Small Amts - Musculoskeletal Musculoskeletal: absent: As Per HPI, Abnormal Gait, Arthralgias, Atrophy, Back Pain, Deformity, Joint Swelling, Limited Range of Motion, Loss of Height, Muscle Cramps, Muscle Weakness, Myalgias, Neck Pain, Numbness, Radiating Pain into Limb, Stiffness, Tingling, Other - Integumentary Integumentary: Dry Skin - Neurological Neurological: absent: As Per HPI, Abnormal Gait, Abnormal Hearing, Abnormal Movements, Abnormal Speech, Behavioral Changes, Burning Sensations, Confusion, Convulsions, Disequilibrium, Dizziness, Numbness, Focal Weakness, Frequent Falls , Headaches, Lack of Coordination, Loss of Vision, Memory Loss, Paresthesias, Radicular Pain, Restless Legs, Sensory Deficit, Syncope, Tingling, Tremor, Vertigo, Weakness, Other Visual Disturbances, Other - Psychiatric Psychiatric: absent: As Per HPI, Abnormal Sleep Pattern, Anhedonia, Anxiety, Auditory Hallucinations, Behavioral Changes, Change in Appetite, Change in Libido, Confusion, Depression, Difficulty Concentrating, Hallucinations, Homicidal Ideation, Hopelessness, Irritability, Memory Loss, Mood Swings, Panic Attacks, Paranoia, Suicidal Ideation, Visual Hallucinations, Tactile Hallucinations, Other - Endocrine Endocrine: absent: As Per HPI, Change in Body Appearance, Change in Libido, Cold Intolorance, Deepening of Voice, Excessive Sweating, Fatigue, Flushing, Heat Intolorance, Increase in Ring/Shoe/Hat Size, Palpitations, Polydipsia, Polyphagia, Polyuria, Other - Hematologic/Lymphatic Additional comments: anemia Past Patient History - Past Medical History & Family History Past Medical History?: Yes - Past Social History Smoking Status: Never Smoked - CARDIAC Hx Hypertension: Yes - PULMONARY Hx Respiratory Disorders: No - NEUROLOGICAL Hx Neurological Disorder: No - HEENT Hx HEENT Problems: No - RENAL Hx Chronic Kidney Disease: No - ENDOCRINE/METABOLIC Hx Diabetes Mellitus Type 2: Yes - HEMATOLOGICAL/ONCOLOGICAL Hx Blood Disorders: No - MUSCULOSKELETAL/RHEUMATOLOGICAL Hx Falls: No Hx Osteoarthritis: Yes - GASTROINTESTINAL Hx Gastrointestinal Disorders: No - GENITOURINARY/GYNECOLOGICAL Hx Genitourinary Disorders: No - PSYCHIATRIC Hx Substance Use: No - SURGICAL HISTORY Hx Surgeries: Yes Other/Comment: Prostate - ANESTHESIA Hx Anesthesia: No Hx Anesthesia Reactions: No Hx Malignant Hyperthermia: No Has any member of the family had a problem w/ anesthesia?: No Meds Allergies/Adverse Reactions: Allergies Allergy/AdvReac Type Severity Reaction Status Date / Time No Known Allergies Allergy Verified 10/09/16 11:38 - Medications Medications: Current Medications Albuterol/Ipratropium (Duoneb 3 Mg/0.5 Mg (3 Ml) Ud) 3 ml INH RQ6 [facility] Last Admin: 10/10/16 14:01 Dose: 3 ml Aspirin (Aspirin Chewable) 81 mg PO DAILY [facility] Last Admin: 10/10/16 09:19 Dose: Not Given Bisacodyl (Dulcolax) 10 mg PO ONCE ONE Stop: 10/10/16 17:01 Gabapentin (Neurontin) 100 mg PO TID [facility] Metronidazole (Flagyl) 500 mg in 100 mls @ 100 mls/hr IVPB Q8 [facility] Last Admin: 10/10/16 13:17 Dose: 100 mls/hr Sodium Chloride (Sodium Chloride 0.9%) 1,000 mls @ 50 mls/hr IV .Q20H [facility] Last Admin: 10/09/16 22:07 Dose: 50 mls/hr Ceftriaxone Sodium 1 gm/ (Sodium Chloride) 100 mls @ 100 mls/hr IVPB DAILY [facility] Last Admin: 10/10/16 09:22 Dose: 100 mls/hr Insulin Human Regular (Novolin R) 0 unit SC ACHS [facility] PRN Reason: Protocol Last Admin: 10/10/16 11:10 Dose: Not Given Metoclopramide HCl (Reglan) 5 mg IVP Q8 [facility] Last Admin: 10/10/16 13:19 Dose: 5 mg Morphine Sulfate (Morphine) 2 mg IVP Q4 PRN PRN Reason: Pain, severe (8-10) Pantoprazole Sodium (Protonix Inj) 40 mg IVP DAILY [facility] Last Admin: 10/10/16 09:22 Dose: 40 mg Physical Exam - Constitutional Appears: Chronically Ill - Head Exam Head Exam: ATRAUMATIC, NORMAL INSPECTION, NORMOCEPHALIC - Eye Exam Eye Exam: EOMI, Normal appearance, PERRL Pupil Exam: NORMAL ACCOMODATION, PERRL - ENT Exam ENT Exam: Mucous Membranes Dry - Neck Exam Neck exam: Positive for: Normal Inspection - Respiratory Exam Respiratory Exam: Decreased Breath Sounds, NORMAL BREATHING PATTERN - Cardiovascular Exam Cardiovascular Exam: Clicks, +S1, +S2 - GI/Abdominal Exam GI & Abdominal Exam: Diminished Bowel Sounds, Distended, Firm - Rectal Exam Rectal Exam: Deferred - Extremities Exam Extremities exam: Positive for: normal inspection - Back Exam Back exam: NORMAL INSPECTION - Neurological Exam Neurological exam: Alert, Oriented x3 - Psychiatric Exam Psychiatric exam: Normal Affect, Normal Mood - Skin Skin Exam: Normal Color, Warm Results - Vital Signs Recent Vital Signs: Last Vital Signs Temp 97.7 F 10/10/16 07:30 Pulse 76 10/10/16 08:59 Resp 20 10/10/16 07:30 BP 156/65 H 10/10/16 07:30 Pulse Ox 99 10/10/16 07:30 - Labs Result Diagrams: 10/10/16 08:48 10/10/16 08:48 Labs: Laboratory Results - last 24 hr 10/09/16 10/09/16 10/09/16 21:43 21:50 21:50 WBC 17.8 H RBC 3.82 L Hgb 10.3 L Hct 31.0 L MCV 81.1 MCH 27.1 MCHC 33.4 RDW 15.2 H Plt Count 440 H MPV 7.3 Neut % (Auto) 83.4 H Lymph % (Auto) 5.5 L [place] % (Auto) 9.3 Eos % (Auto) 1.1 Baso % (Auto) 0.7 Neut # 14.8 H Lymph # 1.0 [place] # 1.7 H Eos # 0.2 Baso # 0.1 Neutrophils % (Manual) 83 H Lymphocytes % (Manual) 3 L Monocytes % (Manual) 13 H Eosinophils % (Manual) 1 Platelet Estimate Slightly increased H Hypochromasia (manual) Poikilocytosis (manual Anisocytosis (manual) Slight [place] Cells PT 15.4 H INR 1.3 APTT 29 Sodium Potassium Chloride Carbon Dioxide Anion Gap BUN Creatinine Est GFR ( Amer) Est GFR (Non-Af Amer) POC Glucose (mg/dL) 193 H Random Glucose Hemoglobin A1c Calcium Phosphorus Magnesium Total Bilirubin AST ALT Alkaline Phosphatase Total Protein Albumin Globulin Albumin/Globulin Ratio Prostate Specific Ag 10/09/16 10/10/16 10/10/16 21:50 07:19 08:48 WBC 16.7 H RBC 3.80 L Hgb 9.9 L Hct 30.9 L MCV 81.4 MCH 26.1 L MCHC 32.1 L RDW 15.1 H Plt Count 436 H MPV 8.1 Neut % (Auto) 80.2 H Lymph % (Auto) 7.4 L [place] % (Auto) 10.2 H Eos % (Auto) 1.9 Baso % (Auto) 0.3 Neut # 13.4 H Lymph # 1.2 [place] # 1.7 H Eos # 0.3 Baso # 0.1 Neutrophils % (Manual) 78 H Lymphocytes % (Manual) 8 L Monocytes % (Manual) 11 H Eosinophils % (Manual) 3 Platelet Estimate Normal Hypochromasia (manual) Slight Poikilocytosis (manual Slight Anisocytosis (manual) Slight [place] Cells Slight PT INR APTT Sodium 130 L Potassium 4.6 Chloride 99 Carbon Dioxide 16 L Anion Gap 20 BUN 80 H Creatinine 3.9 H Est GFR ( Amer) 18 Est GFR (Non-Af Amer) 15 POC Glucose (mg/dL) 135 H Random Glucose 161 H Hemoglobin A1c Calcium 7.7 L Phosphorus 6.8 H Magnesium 1.8 Total Bilirubin 0.7 AST 13 L ALT 22 Alkaline Phosphatase 71 Total Protein 6.6 Albumin 3.0 L Globulin 3.5 Albumin/Globulin Ratio 0.9 L Prostate Specific Ag 10/10/16 10/10/16 10/10/16 08:48 08:48 09:29 WBC RBC Hgb Hct MCV MCH MCHC RDW Plt Count MPV Neut % (Auto) Lymph % (Auto) [place] % (Auto) Eos % (Auto) Baso % (Auto) Neut # Lymph # [place] # Eos # Baso # Neutrophils % (Manual) Lymphocytes % (Manual) Monocytes % (Manual) Eosinophils % (Manual) Platelet Estimate Hypochromasia (manual) Poikilocytosis (manual Anisocytosis (manual) [place]alom Cells PT INR APTT Sodium 135 Potassium 4.6 Chloride 101 Carbon Dioxide 17 L Anion Gap 22 H BUN 85 H Creatinine 4.4 H Est GFR ( Amer) 16 Est GFR (Non-Af Amer) 13 POC Glucose (mg/dL) 151 H Random Glucose 123 H Hemoglobin A1c 6.6 H Calcium 7.7 L Phosphorus 7.3 H Magnesium 1.9 Total Bilirubin 0.6 AST 14 L ALT 21 Alkaline Phosphatase 75 Total Protein 6.4 Albumin 3.0 L Globulin 3.4 Albumin/Globulin Ratio 0.9 L Prostate Specific Ag 216 H 10/10/16 11:02 WBC RBC Hgb Hct MCV MCH MCHC RDW Plt Count MPV Neut % (Auto) Lymph % (Auto) [place] % (Auto) Eos % (Auto) Baso % (Auto) Neut # Lymph # [place] # Eos # Baso # Neutrophils % (Manual) Lymphocytes % (Manual) Monocytes % (Manual) Eosinophils % (Manual) Platelet Estimate Hypochromasia (manual) Poikilocytosis (manual Anisocytosis (manual) [place] Cells PT INR APTT Sodium Potassium Chloride Carbon Dioxide Anion Gap BUN Creatinine Est GFR ( Amer) Est GFR (Non-Af Amer) POC Glucose (mg/dL) 168 H Random Glucose Hemoglobin A1c Calcium Phosphorus Magnesium Total Bilirubin AST ALT Alkaline Phosphatase Total Protein Albumin Globulin Albumin/Globulin Ratio Prostate Specific Ag Assessment & Plan - Assessment and Plan (Free Text) Assessment: Palliative consult Code status Full Code. No Advance directive on chart. PPS 30% I reviewed medical records, all diagnostic studies, examined and interviewed patient in the bed. Goals of care discussed. Total time , 55 min. Patient is alert, oriented X 3, Serbian and [place]uran speaking, looking chronically ill. Skin is pale. Abdomen is firm and distended. Patient reports pain of 8/10 at rest to lower abdomen. Last BM 3 days ago.Patient reports urinating frequently in small amounts and having weak stream. Denies burning/ pain upon urination. Patient reports being hungry and is asking for juice and sandwich. I elicited his knowledge regarding his condition and diagnosis . Patient reported having no BM for the last 3 days and concerns about it. He admits to abdominal pain, new to him. Patient is also concerned about his well being who is currently admitted to the hospital as well. I reviewed the CT scan findings with the patient and planned colonoscopy. Patient took it well and agreed with further testing if advised. Patient refereed to God and his wishes. When I asked about his wishes for the end of life care, patient asked for his family friend to be present. I could not get friend on the phone and left massage. As per patient , the friend Yoni was expected to come tomorrow. Patient could not provide me with his children contact information. Impression * Patient is with acute abdominal pain and constipation most likely due to sigmoid colon mass seen on CT scan * Patient is willing to undergo for further testing in diagnosis of his condition * Abdominal distention and constipation * Dehydration * Patient is concerned with his wellbeing * Wishes for end of life care are not known yet. patient prefers his friend Benito to be present Suggestion * Remind patient frequently of Morphine IV available for pain * Would keep NPO * IV hydration * Renal consult * Colonoscopy as per Doctor Kris * Monitor blood sugar level * Promote safety I will attempt to meet with patient's friend tomorrow and get contact info on patient's children Thank you for involving me in care of this patient.
--- NOTE | 2016-10-10 15:22 | CP.PCM.PN ---
Subjective - Date & Time of Evaluation Date of Evaluation: 10/10/16 Time of Evaluation: 15:19 - Subjective Subjective: Surgery: Dr. Coley Pt seen and examined. Resting comfortably in bed. Pain is slightly improved. No N/V. Pt is not passing flatus or BM. Objective - Vital Signs/Intake and Output Vital Signs (last 24 hours): Temp Pulse Resp BP Pulse Ox 97.7 F 76 20 156/65 H 99 10/10/16 07:30 10/10/16 08:59 10/10/16 07:30 10/10/16 07:30 10/10/16 07:30 Intake and Output: 10/10/16 10/10/16 06:59 18:59 Intake Total 350 900 Balance 350 900 - Medications Medications: Current Medications Albuterol/Ipratropium (Duoneb 3 Mg/0.5 Mg (3 Ml) Ud) 3 ml INH RQ6 [facility] Last Admin: 10/10/16 14:01 Dose: 3 ml Aspirin (Aspirin Chewable) 81 mg PO DAILY [facility] Last Admin: 10/10/16 09:19 Dose: Not Given Bisacodyl (Dulcolax) 10 mg PO ONCE ONE Stop: 10/10/16 17:01 Gabapentin (Neurontin) 100 mg PO TID [facility] Metronidazole (Flagyl) 500 mg in 100 mls @ 100 mls/hr IVPB Q8 [facility] Last Admin: 10/10/16 13:17 Dose: 100 mls/hr Sodium Chloride (Sodium Chloride 0.9%) 1,000 mls @ 50 mls/hr IV .Q20H [facility] Last Admin: 10/09/16 22:07 Dose: 50 mls/hr Ceftriaxone Sodium 1 gm/ (Sodium Chloride) 100 mls @ 100 mls/hr IVPB DAILY [facility] Last Admin: 10/10/16 09:22 Dose: 100 mls/hr Insulin Human Regular (Novolin R) 0 unit SC ACHS [facility] PRN Reason: Protocol Last Admin: 10/10/16 11:10 Dose: Not Given Metoclopramide HCl (Reglan) 5 mg IVP Q8 [facility] Last Admin: 10/10/16 13:19 Dose: 5 mg Morphine Sulfate (Morphine) 2 mg IVP Q4 PRN PRN Reason: Pain, severe (8-10) Pantoprazole Sodium (Protonix Inj) 40 mg IVP DAILY [facility] Last Admin: 10/10/16 09:22 Dose: 40 mg - Labs Labs: 10/10/16 08:48 10/10/16 08:48 PT 15.4 SECONDS (9.7-12.2) H 10/09/16 21:50 INR 1.3 10/09/16 21:50 APTT 29 SECONDS (21-34) 10/09/16 21:50 - Constitutional Appears: Non-toxic, No Acute Distress - Head Exam Head Exam: ATRAUMATIC, NORMOCEPHALIC - Eye Exam Eye Exam: EOMI - ENT Exam ENT Exam: Mucous Membranes Moist - Neck Exam Neck Exam: Full ROM - Respiratory Exam Respiratory Exam: NORMAL BREATHING PATTERN. absent: Accessory Muscle Use, Respiratory Distress - GI/Abdominal Exam GI & Abdominal Exam: Firm (suprapubic). absent: Distended, Guarding, Rigid, Tenderness, Rebound - Extremities Exam Extremities Exam: absent: Calf Tenderness, Pedal Edema - Neurological Exam Neurological Exam: Alert, Awake - Psychiatric Exam Psychiatric exam: Normal Affect, Normal Mood Assessment and Plan - Assessment and Plan (Free Text) Assessment: 86M w. colon mass -for colonoscopy tomorrow -follow up results -c/w abx -d/w attending Meliitis PGY2
[2016-10-10] MEDS ORDERED: Bisacodyl 5mg EC Tab PO ONE (17:00)
[2016-10-10] MEDS: Dorzolamide 2% Opht Sol 10ml OU SCH (18:00)
--- NOTE | 2016-10-10 21:24 | CP.PCM.CON ---
History of Present Illness - History of Present Illness History of Present Illness: Oncology Consult Referred by Dr. Espinoza for possible prostate and colon cancer HPI- Mr Schmitt is 86 y/o M with h/o HTN, DM who was admitted with abdominal pain. He was found to be in acute renal failure. CT abdomen showed moderate bilateral hydronephrosis and enlarged prostate. There were bilateral adrenal nodule (likely adenoma), b/l renal cysts, cecal and terminal ileal wall thickening, severe narrowing in rectosigmoid area. Initial attempts to put a garcia catheter were unsuccessful. Seen by urology and may need suprapubic catheter. Also seen by GI and planned for colonoscopy tomorrow. Other remarkable blood work includes neutrophilic leucocytosis, borderline microcytic anemia, slight thrombocytosis and elevated PSA (216). Currently, his abdominal pain is better and he denies any complaints, though he is not a good historian. He denies any urinary complaints. Denies altered bowel movements and weight loss. Review of Systems - Review of Systems All systems: reviewed and no additional remarkable complaints except Review of Systems: as in HPI Past Patient History - Past Medical History & Family History Past Medical History?: Yes - Past Social History Smoking Status: Never Smoked - CARDIAC Hx Hypertension: Yes - PULMONARY Hx Respiratory Disorders: No - NEUROLOGICAL Hx Neurological Disorder: No - HEENT Hx HEENT Problems: No - RENAL Hx Chronic Kidney Disease: No - ENDOCRINE/METABOLIC Hx Diabetes Mellitus Type 2: Yes - HEMATOLOGICAL/ONCOLOGICAL Hx Blood Disorders: No - MUSCULOSKELETAL/RHEUMATOLOGICAL Hx Falls: No Hx Osteoarthritis: Yes - GASTROINTESTINAL Hx Gastrointestinal Disorders: No - GENITOURINARY/GYNECOLOGICAL Hx Genitourinary Disorders: No - PSYCHIATRIC Hx Substance Use: No - SURGICAL HISTORY Hx Surgeries: Yes Other/Comment: Prostate - ANESTHESIA Hx Anesthesia: No Hx Anesthesia Reactions: No Hx Malignant Hyperthermia: No Has any member of the family had a problem w/ anesthesia?: No Meds Allergies/Adverse Reactions: Allergies Allergy/AdvReac Type Severity Reaction Status Date / Time No Known Allergies Allergy Verified 10/09/16 11:38 - Medications Medications: Current Medications Albuterol/Ipratropium (Duoneb 3 Mg/0.5 Mg (3 Ml) Ud) 3 ml INH RQ6 [facility] Last Admin: 10/10/16 19:42 Dose: 3 ml Aspirin (Aspirin Chewable) 81 mg PO DAILY [facility] Last Admin: 10/10/16 09:19 Dose: Not Given Carvedilol (Coreg) 6.25 mg PO BID [facility] Dorzolamide HCl (Trusopt) 0 ml OU BID [facility] Gabapentin (Neurontin) 100 mg PO TID [facility] Metronidazole (Flagyl) 500 mg in 100 mls @ 100 mls/hr IVPB Q8 [facility] Last Admin: 10/10/16 13:17 Dose: 100 mls/hr Sodium Chloride (Sodium Chloride 0.9%) 1,000 mls @ 50 mls/hr IV .Q20H [facility] Last Admin: 10/09/16 22:07 Dose: 50 mls/hr Ceftriaxone Sodium 1 gm/ (Sodium Chloride) 100 mls @ 100 mls/hr IVPB DAILY [facility] Last Admin: 10/10/16 09:22 Dose: 100 mls/hr Insulin Human Regular (Novolin R) 0 unit SC ACHS [facility] PRN Reason: Protocol Last Admin: 10/10/16 16:30 Dose: 6 unit Latanoprost (Xalatan Opht) 0 ml OS HS [facility] Metoclopramide HCl (Reglan) 5 mg IVP Q8 [facility] Last Admin: 10/10/16 13:19 Dose: 5 mg Morphine Sulfate (Morphine) 2 mg IVP Q4 PRN PRN Reason: Pain, severe (8-10) Pantoprazole Sodium (Protonix Inj) 40 mg IVP DAILY [facility] Last Admin: 10/10/16 09:22 Dose: 40 mg Rosuvastatin Calcium (Crestor) 5 mg PO HS [facility] Timolol Maleate (Timoptic 0.5% Ophth Soln) 0 drop OU BID [facility] Physical Exam - Head Exam Head Exam: ATRAUMATIC, NORMAL INSPECTION - Eye Exam Eye Exam: EOMI, PERRL - Neck Exam Neck exam: Negative for: Lymphadenopathy - Respiratory Exam Respiratory Exam: Clear to Auscultation Bilateral - Cardiovascular Exam Cardiovascular Exam: REGULAR RHYTHM - GI/Abdominal Exam GI & Abdominal Exam: Normal Bowel Sounds, Soft. absent: Distended, Organomegaly , Tenderness - Extremities Exam Extremities exam: Negative for: pedal edema Results - Vital Signs Recent Vital Signs: Last Vital Signs Temp 97.7 F 10/10/16 07:30 Pulse 76 10/10/16 08:59 Resp 20 10/10/16 07:30 BP 156/65 H 10/10/16 07:30 Pulse Ox 99 10/10/16 07:30 - Labs Result Diagrams: 10/10/16 08:48 10/10/16 08:48 Labs: Laboratory Results - last 24 hr 10/09/16 10/09/16 10/09/16 21:43 21:50 21:50 WBC 17.8 H RBC 3.82 L Hgb 10.3 L Hct 31.0 L MCV 81.1 MCH 27.1 MCHC 33.4 RDW 15.2 H Plt Count 440 H MPV 7.3 Neut % (Auto) 83.4 H Lymph % (Auto) 5.5 L [place] % (Auto) 9.3 Eos % (Auto) 1.1 Baso % (Auto) 0.7 Neut # 14.8 H Lymph # 1.0 [place] # 1.7 H Eos # 0.2 Baso # 0.1 Neutrophils % (Manual) 83 H Lymphocytes % (Manual) 3 L Monocytes % (Manual) 13 H Eosinophils % (Manual) 1 Platelet Estimate Slightly increased H Hypochromasia (manual) Poikilocytosis (manual Anisocytosis (manual) Slight [place] Cells PT 15.4 H INR 1.3 APTT 29 Sodium Potassium Chloride Carbon Dioxide Anion Gap BUN Creatinine Est GFR ( Amer) Est GFR (Non-Af Amer) POC Glucose (mg/dL) 193 H Random Glucose Hemoglobin A1c Calcium Phosphorus Magnesium Total Bilirubin AST ALT Alkaline Phosphatase Total Protein Albumin Globulin Albumin/Globulin Ratio Prostate Specific Ag 10/09/16 10/10/16 10/10/16 21:50 07:19 08:48 WBC 16.7 H RBC 3.80 L Hgb 9.9 L Hct 30.9 L MCV 81.4 MCH 26.1 L MCHC 32.1 L RDW 15.1 H Plt Count 436 H MPV 8.1 Neut % (Auto) 80.2 H Lymph % (Auto) 7.4 L [place] % (Auto) 10.2 H Eos % (Auto) 1.9 Baso % (Auto) 0.3 Neut # 13.4 H Lymph # 1.2 [place] # 1.7 H Eos # 0.3 Baso # 0.1 Neutrophils % (Manual) 78 H Lymphocytes % (Manual) 8 L Monocytes % (Manual) 11 H Eosinophils % (Manual) 3 Platelet Estimate Normal Hypochromasia (manual) Slight Poikilocytosis (manual Slight Anisocytosis (manual) Slight Shalom Cells Slight PT INR APTT Sodium 130 L Potassium 4.6 Chloride 99 Carbon Dioxide 16 L Anion Gap 20 BUN 80 H Creatinine 3.9 H Est GFR ( Amer) 18 Est GFR (Non-Af Amer) 15 POC Glucose (mg/dL) 135 H Random Glucose 161 H Hemoglobin A1c Calcium 7.7 L Phosphorus 6.8 H Magnesium 1.8 Total Bilirubin 0.7 AST 13 L ALT 22 Alkaline Phosphatase 71 Total Protein 6.6 Albumin 3.0 L Globulin 3.5 Albumin/Globulin Ratio 0.9 L Prostate Specific Ag 10/10/16 10/10/16 10/10/16 08:48 08:48 09:29 WBC RBC Hgb Hct MCV MCH MCHC RDW Plt Count MPV Neut % (Auto) Lymph % (Auto) [place] % (Auto) Eos % (Auto) Baso % (Auto) Neut # Lymph # [place] # Eos # Baso # Neutrophils % (Manual) Lymphocytes % (Manual) Monocytes % (Manual) Eosinophils % (Manual) Platelet Estimate Hypochromasia (manual) Poikilocytosis (manual Anisocytosis (manual) Shalom Cells PT INR APTT Sodium 135 Potassium 4.6 Chloride 101 Carbon Dioxide 17 L Anion Gap 22 H BUN 85 H Creatinine 4.4 H Est GFR ( Amer) 16 Est GFR (Non-Af Amer) 13 POC Glucose (mg/dL) 151 H Random Glucose 123 H Hemoglobin A1c 6.6 H Calcium 7.7 L Phosphorus 7.3 H Magnesium 1.9 Total Bilirubin 0.6 AST 14 L ALT 21 Alkaline Phosphatase 75 Total Protein 6.4 Albumin 3.0 L Globulin 3.4 Albumin/Globulin Ratio 0.9 L Prostate Specific Ag 216 H 10/10/16 10/10/16 11:02 16:28 WBC RBC Hgb Hct MCV MCH MCHC RDW Plt Count MPV Neut % (Auto) Lymph % (Auto) [place] % (Auto) Eos % (Auto) Baso % (Auto) Neut # Lymph # [place] # Eos # Baso # Neutrophils % (Manual) Lymphocytes % (Manual) Monocytes % (Manual) Eosinophils % (Manual) Platelet Estimate Hypochromasia (manual) Poikilocytosis (manual Anisocytosis (manual) Shalom Cells PT INR APTT Sodium Potassium Chloride Carbon Dioxide Anion Gap BUN Creatinine Est GFR ( Amer) Est GFR (Non-Af Amer) POC Glucose (mg/dL) 168 H 308 H Random Glucose Hemoglobin A1c Calcium Phosphorus Magnesium Total Bilirubin AST ALT Alkaline Phosphatase Total Protein Albumin Globulin Albumin/Globulin Ratio Prostate Specific Ag Assessment & Plan - Assessment and Plan (Free Text) Assessment: Enlarged Prostate with elevated PSA, likely resulting in urinary obstruction Rectosigmoid wall thickening- rule out malignancy VitB12 def. Will follow up results of colonoscopy and tissue diagnosis. F/u CEA. Will check iron levels. Start B12 supplements. He will also need prostate biopsy at some stage (once clinically stable). Continue to follow up with Urology. Consider bone scan (abnormal sclerotic lesions in T/L spine). Further management based on pathological findings. Thank you for the consult Rios Mishra - Date & Time Date: 10/10/16 Time: 17:24
[2016-10-10] MEDS: Latanoprost 2.5 ml Opht Soln OS SCH (22:50)
[2016-10-11] MEDS: Albuterol-Ipratrop 3 mg / 0.5 (3 ml) UD INH SCH ×4 (02:38→19:35)
[2016-10-11] MEDS: metroNIDAZOLE IV 500 mg/100 ml 500 MG/100 ML BAG IVPB SCH ×3 (05:25→21:21)
[2016-10-11 08:26] LABS: BASO # 0.1 K/uL (0.0-0.2); BASO % 0.3 % (0.0-2.0); EOS # 0.4 K/uL (0.0-0.7); EOS % 2.5 % (0.0-4.0); HEMATOCRIT 30.8 % (35.0-51.0); LYMPH # 1.3 K/uL (1.0-4.3); LYMPH % 8.2 % (20.0-40.0); MEAN CELL VOLUME 82.3 fL (80.0-94.0); MEAN CORPUSCULAR HEMOGLOBIN 26.9 pg (27.0-31.0); MEAN CORPUSCULAR HGB CONC 32.6 g/dL (33.0-37.0); MEAN PLATELET VOLUME 7.7 fL (7.2-11.7); MONO # 1.7 K/uL (0.0-0.8); MONO % 10.6 % (0.0-10.0); PLATELET COUNT 444 K/uL (130-400); WHITE BLOOD COUNT 16.1 K/uL (4.8-10.8)
[2016-10-11 08:47] LABS: POTASSIUM 4.9 mmol/L (3.6-5.2)
[2016-10-11 08:49] LABS: ALB/GLOB RATIO 0.9 (1.0-2.1); BILIRUBIN,TOTAL 0.5 mg/dL (0.2-1.3); PHOSPHOROUS 6.9 mg/dL (2.5-4.5); TOTAL PROTEIN 6.3 g/dL (6.3-8.3)
[2016-10-11 08:50] LABS: CALCIUM 7.7 mg/dl (8.6-10.4); IRON 48 ug/dL (49-181); MAGNESIUM 1.9 mg/dL (1.6-2.3)
--- NOTE | 2016-10-11 08:51 | CP.PCM.PN ---
Subjective - Date & Time of Evaluation Date of Evaluation: 10/11/16 Time of Evaluation: 08:49 - Subjective Subjective: Surgery: Dr. Coley Pt seen and examined. States that pain is controlled. No N/V. No F/C. Objective - Vital Signs/Intake and Output Vital Signs (last 24 hours): Temp Pulse Resp BP Pulse Ox 98.2 F 71 20 162/62 H 97 10/11/16 08:31 10/11/16 08:31 10/11/16 08:31 10/11/16 08:31 10/11/16 08:31 Intake and Output: 10/11/16 10/11/16 06:59 18:59 Intake Total 400 Balance 400 - Medications Medications: Current Medications Albuterol/Ipratropium (Duoneb 3 Mg/0.5 Mg (3 Ml) Ud) 3 ml INH RQ6 [facility] Last Admin: 10/11/16 08:07 Dose: 3 ml Aspirin (Aspirin Chewable) 81 mg PO DAILY [facility] Last Admin: 10/10/16 09:19 Dose: Not Given Carvedilol (Coreg) 6.25 mg PO BID [facility] Last Admin: 10/10/16 19:00 Dose: 6.25 mg Cyanocobalamin (Vitamin B12 1000 Mcg/Ml Inj) 1,000 mcg IM MWF [facility] Dorzolamide HCl (Trusopt) 0 ml OU BID [facility] Last Admin: 10/10/16 18:00 Dose: 1 applic Gabapentin (Neurontin) 100 mg PO TID [facility] Metronidazole (Flagyl) 500 mg in 100 mls @ 100 mls/hr IVPB Q8 [facility] Last Admin: 10/11/16 05:25 Dose: 100 mls/hr Sodium Chloride (Sodium Chloride 0.9%) 1,000 mls @ 50 mls/hr IV .Q20H [facility] Last Admin: 10/09/16 22:07 Dose: 50 mls/hr Ceftriaxone Sodium 1 gm/ (Sodium Chloride) 100 mls @ 100 mls/hr IVPB DAILY [facility] Last Admin: 10/10/16 09:22 Dose: 100 mls/hr Insulin Human Regular (Novolin R) 0 unit SC ACHS [facility] PRN Reason: Protocol Last Admin: 10/10/16 22:27 Dose: 3 unit Latanoprost (Xalatan Opht) 0 ml OS HS [facility] Last Admin: 10/10/16 22:50 Dose: 2.5 ml Metoclopramide HCl (Reglan) 5 mg IVP Q8 [facility] Last Admin: 10/11/16 05:25 Dose: 5 mg Morphine Sulfate (Morphine) 2 mg IVP Q4 PRN PRN Reason: Pain, severe (8-10) Pantoprazole Sodium (Protonix Inj) 40 mg IVP DAILY [facility] Last Admin: 10/10/16 09:22 Dose: 40 mg Rosuvastatin Calcium (Crestor) 5 mg PO HS [facility] Timolol Maleate (Timoptic 0.5% Ophth Soln) 0 drop OU BID [facility] Last Admin: 10/10/16 22:13 Dose: 1 applic - Labs Labs: 10/11/16 08:05 10/10/16 08:48 PT 15.4 SECONDS (9.7-12.2) H 10/09/16 21:50 INR 1.3 10/09/16 21:50 APTT 29 SECONDS (21-34) 10/09/16 21:50 - Constitutional Appears: Non-toxic, No Acute Distress - Head Exam Head Exam: ATRAUMATIC, NORMOCEPHALIC - Eye Exam Eye Exam: EOMI - ENT Exam ENT Exam: Normal External Ear Exam - Respiratory Exam Respiratory Exam: NORMAL BREATHING PATTERN. absent: Accessory Muscle Use, Respiratory Distress - GI/Abdominal Exam GI & Abdominal Exam: Distended (suprapubic), Firm (suprapubic). absent: Rigid, Soft, Tenderness, Rebound - Extremities Exam Extremities Exam: absent: Calf Tenderness, Pedal Edema - Neurological Exam Neurological Exam: Alert, Awake, Oriented x3 - Psychiatric Exam Psychiatric exam: Normal Affect, Normal Mood Assessment and Plan - Assessment and Plan (Free Text) Assessment: 86M w. sigmoid mass -for colonoscopy today, f/u results -f/u CEA -elevated wbc persists, c/w abx -c/w pain management -further plans pending results of colonoscopy -will d/w attending Madelyn PGY2
[2016-10-11] MEDS: (Novolin R) Insulin Human Regular 100 units/ml vial SC SCH ×4 (09:28→21:48)
[2016-10-11 09:50] LABS: EOSINOPHIL 2 % (0-4); NEUTROPHIL 81 % (50-75); TOTAL CELLS COUNTED 100
[2016-10-11] MEDS: Dorzolamide 2% Opht Sol 10ml OU SCH ×2 (10:00→18:22)
[2016-10-11] MEDS ORDERED: Lidocaine Hydrochloride 5 ML INJ ONE ×2 (10:11→11:48)
[2016-10-11] MEDS ORDERED: Propofol 10 mg/ml Inj (20 ML) ONE ×3 (10:11→12:21)
[2016-10-11] MEDS ORDERED: Sodium Chloride 0.9% 1,000 ML IV ONE (11:40)
[2016-10-11] MEDS ORDERED: Lidocaine 2% Jelly (Uro-Jet) ONE (11:41)
[2016-10-11] MEDS: Ciprofloxacin 400mg/200ml D5W 400 MG/200 ML BAG IVPB ONE ×2 (11:45→11:58)
[2016-10-11] MEDS: Gentamicin 80 mg in 0.9% NS 80 MG/100 ML BAG IVPB ONE ×2 (11:56→12:10)
[2016-10-11] MEDS ORDERED: Iohexol 240 (50 ml) ONE (12:25)
--- NOTE | 2016-10-11 12:50 | PCM.SURG1 ---
Surgeon's Initial Post Op Note - Surgeon's Notes Surgeon: Ashley Cnc Manufacturing Engineer: N/a Type of Anesthesia: General LMA Anesthesia Administered By: staff Pre-Operative Diagnosis: Urinary retention Operative Findings: Urethral stricture Post-Operative Diagnosis: urinary retention due to urethral stricture Operation Performed: Cystoscopy OIU/Balloon dilitation insertion of garcia Specimen/Specimens Removed: n/a Estimated Blood Loss: EBL {In ML}: 0 Blood Products Given: N/A Drains Used: No Drains Post-Op Condition: Good Date of Surgery/Procedure: 10/11/16 Time of Surgery/Procedure: 12:50
--- NOTE | 2016-10-11 13:26 | CP.PCM.PN ---
Subjective - Date & Time of Evaluation Date of Evaluation: 10/11/16 Time of Evaluation: 13:14 - Subjective Subjective: Patient is S/P cystoscopy, balloon dilatation and Nair cath insertion. Objective - Vital Signs/Intake and Output Vital Signs (last 24 hours): Temp Pulse Resp BP Pulse Ox 97.5 F L 66 12 120/63 100 10/11/16 10:41 10/11/16 11:11 10/11/16 11:11 10/11/16 11:11 10/11/16 11:11 Intake and Output: 10/11/16 10/11/16 06:59 18:59 Intake Total 400 450 Balance 400 450 - Medications Medications: Current Medications Albuterol/Ipratropium (Duoneb 3 Mg/0.5 Mg (3 Ml) Ud) 3 ml INH RQ6 [facility] Last Admin: 10/11/16 08:07 Dose: 3 ml Aspirin (Aspirin Chewable) 81 mg PO DAILY [facility] Last Admin: 10/10/16 09:19 Dose: Not Given Carvedilol (Coreg) 6.25 mg PO BID [facility] Last Admin: 10/10/16 19:00 Dose: 6.25 mg Cyanocobalamin (Vitamin B12 1000 Mcg/Ml Inj) 1,000 mcg IM MWF [facility] Dorzolamide HCl (Trusopt) 0 ml OU BID [facility] Last Admin: 10/10/16 18:00 Dose: 1 applic Gabapentin (Neurontin) 100 mg PO TID [facility] Metronidazole (Flagyl) 500 mg in 100 mls @ 100 mls/hr IVPB Q8 [facility] Last Admin: 10/11/16 05:25 Dose: 100 mls/hr Sodium Chloride (Sodium Chloride 0.9%) 1,000 mls @ 50 mls/hr IV .Q20H [facility] Last Admin: 10/09/16 22:07 Dose: 50 mls/hr Ceftriaxone Sodium 1 gm/ (Sodium Chloride) 100 mls @ 100 mls/hr IVPB DAILY [facility] Last Admin: 10/10/16 09:22 Dose: 100 mls/hr Insulin Human Regular (Novolin R) 0 unit SC ACHS [facility] PRN Reason: Protocol Last Admin: 10/11/16 09:28 Dose: Not Given Latanoprost (Xalatan Opht) 0 ml OS HS [facility] Last Admin: 10/10/16 22:50 Dose: 2.5 ml Metoclopramide HCl (Reglan) 5 mg IVP Q8 [facility] Last Admin: 10/11/16 05:25 Dose: 5 mg Morphine Sulfate (Morphine) 2 mg IVP Q4 PRN PRN Reason: Pain, severe (8-10) Pantoprazole Sodium (Protonix Inj) 40 mg IVP DAILY [facility] Last Admin: 10/10/16 09:22 Dose: 40 mg Rosuvastatin Calcium (Crestor) 5 mg PO HS [facility] Timolol Maleate (Timoptic 0.5% Ophth Soln) 0 drop OU BID [facility] Last Admin: 10/10/16 22:13 Dose: 1 applic - Labs Labs: 10/11/16 08:05 10/11/16 08:05 PT 15.4 SECONDS (9.7-12.2) H 10/09/16 21:50 INR 1.3 10/09/16 21:50 APTT 29 SECONDS (21-34) 10/09/16 21:50 - Constitutional Appears: Chronically Ill - Head Exam Head Exam: ATRAUMATIC, NORMAL INSPECTION, NORMOCEPHALIC - Eye Exam Eye Exam: Normal appearance, PERRL Pupil Exam: NORMAL ACCOMODATION, PERRL - ENT Exam ENT Exam: Mucous Membranes Moist, Normal Exam - Neck Exam Neck Exam: Full ROM, Normal Inspection - Respiratory Exam Respiratory Exam: Decreased Breath Sounds, NORMAL BREATHING PATTERN - Cardiovascular Exam Cardiovascular Exam: REGULAR RHYTHM, +S1, +S2 - GI/Abdominal Exam GI & Abdominal Exam: Distended, Firm, Hypoactive Bowel Sounds - Rectal Exam Rectal Exam: Deferred - Exam Additional comments: Nair cath - Back Exam Back Exam: NORMAL INSPECTION - Neurological Exam Neurological Exam: Alert, Oriented x3 Neuro motor strength exam: Left Upper Extremity: 2/1, Right Upper Extremity: 2/1 , Left Lower Extremity: 2/1, Right Lower Extremity: 2/1 - Psychiatric Exam Psychiatric exam: Normal Affect, Normal Mood - Skin Skin Exam: Dry, Intact, Normal Color, Warm Assessment and Plan - Assessment and Plan (Free Text) Assessment: Patient is S/P cystoscopy with Nair insertion. Patient denies suprapubic pain or burning sensation. Patient given top water enema, with small stool expelled afterwards. Colonoscopy prep is pending for colonoscopy. Patient NPO. Reports is hungry. Marti nausea. Reports mild pain to lower abdomen. Morphine IV PRN on board.No significant changes in blood work from yesterday. I discussed pending colonoscopy with patient and goals of care. Patient referred to God again saying that God will decide when his time comes . Until that happens patient would want all appropriate measures to be used to sustain life. Impression * patient remains with mild lower abdomen pain , most likely due to sigmoid colon mass * Patient is aware of CT abdomen impression of colon mass * Patient agreed with colonoscopy and all needed interventions to support life * Constipation persists, post top water enema * Patient reports good appetite and is asking for food Suggestion * Apply all measures necessary to support life * Full Code * Monitor abdominal pain, medicate PRN
--- NOTE | 2016-10-11 13:30 | OP ---
PROCEDURE DATE: 10/11/2016 PREOPERATIVE DIAGNOSIS: Urinary retention secondary to posterior urethral obstruction. POSTOPERATIVE DIAGNOSES: Urinary retention secondary or posterior urethral stricture. PROCEDURE: Cystoscopy, optical internal urethrotomy and balloon dilatation of the urethra. DESCRIPTION OF PROCEDURE: The patient was asked to sign a detailed informed consent prior to the pro cedure. He understood the risks and complications and this was also reviewed with his guardian, his neighbor Rik. The patient has agreed to the risks and complications, was brought into the room an d draped and prepped in the usual manner, received prophylactic antibiotics and was cystoscoped with a #21 Storz panendoscope. In the mid pendulous urethra there was noted to be a pinpoint urethral str icture. This was cannulated with an 0.038 guidewire. The guidewire was passed into the bladder unde r fluoroscopic control. The balloon dilatation device was then passed over the catheter, inflated wi th the appropriate amount of saline, after a 5 minute delay was deflated, residual fibers of the stri cture were cut with the OIU instrument. The scope was then passed into the posterior urethra, there was evidence of previous prostatic resection. The bladder was entered atraumatically. There was a l arge amount of urine, it was distended, it appeared somewhat inflamed. The scope was backed out and a #16 lower [place] tip catheter was passed over the guidewire, inflated with the appropriate amount normal saline and the large amount of urine drainage occurred. Culture was taken. Discussed this case pos toperatively with Dr. Espinoza, we suggest leaving the Nair catheter and further evaluation of the eleva debora PSA in the future after infection is cleared and retention is resolved. Yung Ramirez MD cc: [phone] TT: 10/11/2016 13:29:20 dena
--- NOTE | 2016-10-11 13:36 | CON ---
DATE: 10/11/2016 CHIEF COMPLAINT: Inability to pass Nair catheter. HISTORY OF PRESENT ILLNESS: The patient was admitted through the Emergency Room at [facility] w ith abdominal pain and was found to have an elevated creatinine. He underwent CT scan of the abdomen and pelvis which shows a distended bladder, an irregular prostate, and bilateral hydronephrosis. I was called to see the patient and insert a Nair catheter. REVIEW OF SYSTEMS: RESPIRATORY: The patient has no history of shortness of breath or wheezing. CARDIAC: The patient is not complaining of chest pain. GASTROINTESTINAL: The patient has no change in bowel habits, but does complain of vague abdominal pa in. No history of diarrhea or bleeding per rectum. GENITOURINARY: The patient gives a history of having prostate surgery many, many years ago. He has been having difficulty in urination more recently, frequency of urinating, and urinating small amount s. He is also complaining of suprapubic discomfort. ORTHOPEDIC: The patient denies any history of fracture or orthopedic deformity. NEUROLOGIC: The patient has no history of tremor or seizures. INTEGUMENT: There is no history of skin lesions. SOCIAL HISTORY: The patient lives with his in [place] and is retired. He is neither a smok er or drinker. PHYSICAL EXAMINATION: VITAL SIGNS: The patient is afebrile. HEAD, EARS, EYES, NOSE, AND THROAT: Within normal limits. NECK: Supple. There are no bruits, nodes, or mass. CHEST: Clear bilaterally. There are no rales or rhonchi. HEART: Normal sinus rhythm. ABDOMEN: Soft, nontender. There are no abdominal masses. The bladder appears to be distended, but it is not clear if there is also a pelvic abdominal mass. IMPRESSION: Urinary retention. PLAN: We made the decision to proceed with attempts to put a Nair catheter. We were unable to pass a Nair catheter even though we used filiforms and followers, catheter guides and sounds. Based on these findings, it appears the patient has urethral stricture. I discussed this case with the reside nt. Yung Ramirez MD cc: [phone] TT: 10/11/2016 13:35:47 Confirmation # [id number] Dictation # [id number] jn
--- NOTE | 2016-10-11 14:06 | RAD ---
PROCEDURE: Fluoroscopy up to 1 hr. HISTORY: URINARY RETENTION COMPARISON: None TECHNIQUE: Standard FINDINGS: Submitted images from the current procedure: 2.0 IMPRESSION: Less than 1 hr fluoroscopic time utilized during performance of the procedure.
[2016-10-11] MEDS: Sodium Chloride 0.9% 1,000 ML IV SCH (16:29)
--- NOTE | 2016-10-11 18:27 | CP.PCM.PN ---
<PrinceBeryl richards - Last Filed: 10/11/16 20:03> Subjective - Date & Time of Evaluation Date of Evaluation: 10/11/16 Time of Evaluation: 18:02 - Subjective Subjective: Patient seen and examined at bedside. Patient had colonoscopy and cystoscopy today. Patient states he is feeling well. He is sitting in up in bed. Patient denies chest pain, shortness of breath, abdominal pain, nausea, vomiting, fever and chills. Objective - Vital Signs/Intake and Output Vital Signs (last 24 hours): Temp Pulse Resp BP Pulse Ox 97 F L 74 21 166/65 H 98 10/11/16 15:30 10/11/16 15:30 10/11/16 15:30 10/11/16 15:30 10/11/16 15:30 Intake and Output: 10/11/16 10/11/16 06:59 18:59 Intake Total 400 450 Output Total 950 Balance 400 -500 - Medications Medications: Current Medications Albuterol/Ipratropium (Duoneb 3 Mg/0.5 Mg (3 Ml) Ud) 3 ml INH RQ6 [facility] Last Admin: 10/11/16 14:07 Dose: 3 ml Aspirin (Aspirin Chewable) 81 mg PO DAILY [facility] Last Admin: 10/11/16 15:01 Dose: 81 mg Carvedilol (Coreg) 6.25 mg PO BID [facility] Last Admin: 10/11/16 10:00 Dose: Not Given Cyanocobalamin (Vitamin B12 1000 Mcg/Ml Inj) 1,000 mcg IM MWF [facility] Last Admin: 10/11/16 15:01 Dose: 1,000 mcg Dorzolamide HCl (Trusopt) 0 ml OU BID [facility] Last Admin: 10/11/16 10:00 Dose: 1 applic Gabapentin (Neurontin) 100 mg PO TID [facility] Metronidazole (Flagyl) 500 mg in 100 mls @ 100 mls/hr IVPB Q8 [facility] Last Admin: 10/11/16 15:01 Dose: 100 mls/hr Sodium Chloride (Sodium Chloride 0.9%) 1,000 mls @ 50 mls/hr IV .Q20H [facility] Last Admin: 10/11/16 16:29 Dose: 50 mls/hr Ceftriaxone Sodium 1 gm/ (Sodium Chloride) 100 mls @ 100 mls/hr IVPB DAILY [facility] Last Admin: 10/11/16 10:00 Dose: Not Given Insulin Human Regular (Novolin R) 0 unit SC ACHS [facility] PRN Reason: Protocol Last Admin: 10/11/16 11:30 Dose: Not Given Latanoprost (Xalatan Opht) 0 ml OS HS [facility] Last Admin: 10/10/16 22:50 Dose: 2.5 ml Metoclopramide HCl (Reglan) 5 mg IVP Q8 [facility] Last Admin: 10/11/16 15:05 Dose: 5 mg Morphine Sulfate (Morphine) 2 mg IVP Q4 PRN PRN Reason: Pain, severe (8-10) Pantoprazole Sodium (Protonix Inj) 40 mg IVP DAILY [facility] Last Admin: 10/11/16 15:00 Dose: 40 mg Rosuvastatin Calcium (Crestor) 5 mg PO HS [facility] Timolol Maleate (Timoptic 0.5% Ophth Soln) 0 drop OU BID [facility] Last Admin: 10/11/16 10:00 Dose: 1 applic - Labs Labs: 10/11/16 08:05 10/11/16 08:05 PT 15.4 SECONDS (9.7-12.2) H 10/09/16 21:50 INR 1.3 10/09/16 21:50 APTT 29 SECONDS (21-34) 10/09/16 21:50 - Constitutional Appears: Non-toxic, No Acute Distress, Cachectic - Head Exam Head Exam: ATRAUMATIC, NORMAL INSPECTION, NORMOCEPHALIC - Eye Exam Eye Exam: EOMI, Normal appearance, PERRL - ENT Exam ENT Exam: Mucous Membranes Moist - Respiratory Exam Respiratory Exam: Clear to Ausculation Bilateral, NORMAL BREATHING PATTERN - Cardiovascular Exam Cardiovascular Exam: +S1, +S2. absent: Bradycardia, Tachycardia - GI/Abdominal Exam GI & Abdominal Exam: Soft, Normal Bowel Sounds. absent: Guarding, Tenderness - Exam Additional comments: garcia in place - Extremities Exam Extremities Exam: Normal Inspection. absent: Pedal Edema, Tenderness - Back Exam Back Exam: NORMAL INSPECTION - Neurological Exam Neurological Exam: Alert, Awake, Oriented x3 - Psychiatric Exam Psychiatric exam: Normal Affect, Normal Mood - Skin Skin Exam: Intact, Normal Color Assessment and Plan - Assessment and Plan (Free Text) Assessment: 1. Prostate mass CT abd/pelvis- enlarged heterogeneous and irregular appearance of the prostate gland worrisome for prostate cancer. Bladder distended. Garcia catheter insertion was not successful in the ED after several attempts 10/11/16: Dr. Ramirez was able to successfully place catheter via cystoscopy, optical internal urethrotomy and balloon dilatation of urethra. During procedure , large amount of urine, distention and inflammation was visualized. Culture was taken. Plan to leave garcia catheter in place until retention resolved. Consulted Urologist Dr Ramirez- Would like to go for cystoscopy 10/11 around noon. If unsuccessful, will try for suprapubic catheter. F/U recommendations. Pre- operative EKG, Chest Xray ordered. Consulted Heme/onc Dr Mishra- help appreciated. PSA elevated 216. Patient will need postate biopsy per Dr. Mishra and further work-up. He will also need bone scan to evaluate for metastasis given findings of sclerotic bone on imaging. Morphine 2mg IV q4h prn pain Detsky score 10; Class II 7% complications for cardiac risk in noncardiac surgical procedure. 2. Hydronephrosis CT abd/pelvis- Moderate bilateral hydroureteronephrosis, no obstructing calculus identified Likely secondary to prostate mass obstruction. PSA elevated 216. BUN/Cr increasing to 92/5.4, GFR [address] Consulted Urologist [address] Ramirez- See recommendations above. urine culture - multiple species. Will repeat specimen. 3. SHANNAN Basline kidney function unknown BUN/Cr Elevated Likely secondary to hydronephrosis IVF NS @50 cc Q20H Monitor I/Os 4. Colitis s/p colonoscopy - non bleeding internal hemorrhoids. Moderate diverticulosis in entire examined colon. No evidence of diverticular bleeding. Congested mucosa in distal descending colon. Biopsied. Dr. Ponce recommends high fiber diet, continue on current medications. Patient to have repeat colonoscopy in 5 years. Patient to follow-up with Dr. Ponce in office in 5 weeks. Recommends Analpram HC cream 2.5% externally BID for [address] abd- cecal wall and terminal ileum appear thickened Leukocytosis of 16.1, left shift of 81. Afebrile Continue on IV Flagyl 500mg q8h and Rocephin 1 gm IVPB daily blood culture preliminary negative x [address] Ponce- help appreciated . 5. Colon mass CT abd- 4.8cm segment of severe wall thickening/narrowing of the rectosigmoid colon worrisome for malignant neoplasm Patient would benefit from colonscopy. Consulted Surgery Dr Coley- F/U recommendations Consulted GI Dr Ponce- F/U recommendations Consulted Heme/onc Dr Mishra CEA non-elevated 0.9 6. HTN Continue home medication Losartan 50mg PO daily Vitals q4h Will monitor and adjust meds as needed 7. Diabetes Mellitus HgA1C 6.6 Accuchecks ACHS ISS Hold home metformin due to SHANNAN. Continue home Glimepiride 4mg PO BID 8. Anemia Hgb/Hematocrit stable: 10.0/30.8 Will monitor at this time 9. Pleural effusion CT- small right pleural effusion and associated consolidation Duonebs 3ml INH q6h [facility] 2L NC O2 as needed 10. Prophylactic measures Protonix 40mg IV daily SCDs PT/OT evaluation Palliative care consult to discuss plan for end of life care and code status with patient and office associate <Chris Espinoza - Last Filed: 10/12/16 07:09> Objective - Vital Signs/Intake and Output Vital Signs (last 24 hours): Temp Pulse Resp BP Pulse Ox 99.1 F 81 20 132/76 97 10/12/16 06:05 10/12/16 00:00 10/12/16 00:00 10/12/16 00:00 10/12/16 00:00 Intake and Output: 10/12/16 10/12/16 06:59 18:59 Intake Total 1200 Output Total 4250 Balance -3050 - Medications Medications: Current Medications Albuterol/Ipratropium (Duoneb 3 Mg/0.5 Mg (3 Ml) Ud) 3 ml INH RQ6 [facility] Last Admin: 10/11/16 19:35 Dose: Not Given Aspirin (Aspirin Chewable) 81 mg PO DAILY [facility] Last Admin: 10/11/16 15:01 Dose: 81 mg Carvedilol (Coreg) 6.25 mg PO BID [facility] Last Admin: 10/11/16 18:23 Dose: 6.25 mg Cyanocobalamin (Vitamin B12 1000 Mcg/Ml Inj) 1,000 mcg IM MWF [facility] Last Admin: 10/11/16 15:01 Dose: 1,000 mcg Dorzolamide HCl (Trusopt) 0 ml OU BID [facility] Last Admin: 10/11/16 18:22 Dose: 1 applic Gabapentin (Neurontin) 100 mg PO TID [facility] Metronidazole (Flagyl) 500 mg in 100 mls @ 100 mls/hr IVPB Q8 [facility] Last Admin: 10/12/16 05:54 Dose: 100 mls/hr Sodium Chloride (Sodium Chloride 0.9%) 1,000 mls @ 50 mls/hr IV .Q20H [facility] Last Admin: 10/12/16 05:53 Dose: 50 mls/hr Ceftriaxone Sodium 1 gm/ (Sodium Chloride) 100 mls @ 100 mls/hr IVPB DAILY [facility] Last Admin: 10/11/16 10:00 Dose: Not Given Insulin Human Regular (Novolin R) 0 unit SC ACHS [facility] PRN Reason: Protocol Last Admin: 10/11/16 21:48 Dose: Not Given Latanoprost (Xalatan Opht) 0 ml OS HS [facility] Last Admin: 10/11/16 21:23 Dose: 2.5 ml Metoclopramide HCl (Reglan) 5 mg IVP Q8 [facility] Last Admin: 10/12/16 05:51 Dose: 5 mg Morphine Sulfate (Morphine) 2 mg IVP Q4 PRN PRN Reason: Pain, severe (8-10) Pantoprazole Sodium (Protonix Inj) 40 mg IVP DAILY [facility] Last Admin: 10/11/16 15:00 Dose: 40 mg Rosuvastatin Calcium (Crestor) 5 mg PO HS [facility] Last Admin: 10/11/16 21:29 Dose: 5 mg Timolol Maleate (Timoptic 0.5% Ophth Soln) 0 drop OU BID [facility] Last Admin: 10/11/16 18:22 Dose: 1 applic - Labs Labs: 10/11/16 08:05 10/11/16 08:05 PT 15.4 SECONDS (9.7-12.2) H 10/09/16 21:50 INR 1.3 10/09/16 21:50 APTT 29 SECONDS (21-34) 10/09/16 21:50 Attending/Attestation - Attestation I have personally seen and examined this patient.: Yes I have fully participated in the care of the patient.: Yes I have reviewed all pertinent clinical information, including history, physical exam and plan: Yes Notes (Text): 10/12/16 07:07 Medical attending: Patient was seen and examined by me, agrees the above note by director global medical affairs. I was not able to see the patient in the morning since he had already been brought to endoscopy and then to the OR for his procedures during that day. I did see the patient later on in the afternoon after he had had the colonoscopy as well as the cystoscopy. The patient in the afternoon or he had a Garcia catheter placed, he was sitting up out of bed he appeared very comfortable and his abdomen was much softer. He was also eating on his own without assistance as well. So at this time we'll continue to follow his renal function hopefully it will improve over time now that the obstruction has been relieved. We also need to wait for the pathology from the 2 procedures he's had to come back as well. As mentioned before were concerned that he may have some type of malignancy, at this moment he likely has prostate CA. Thank you very much, Chris Espinoza
[2016-10-11] MEDS: Latanoprost 2.5 ml Opht Soln OS SCH (21:23)
[2016-10-12] MEDS: Sodium Chloride 0.9% 1,000 ML IV SCH ×4 (05:53→21:49)
[2016-10-12] MEDS: metroNIDAZOLE IV 500 mg/100 ml 500 MG/100 ML BAG IVPB SCH ×3 (05:54→21:56)
[2016-10-12] MEDS: Albuterol-Ipratrop 3 mg / 0.5 (3 ml) UD INH SCH ×3 (07:20→19:40)
[2016-10-12] MEDS: (Novolin R) Insulin Human Regular 100 units/ml vial SC SCH ×4 (07:30→21:48)
[2016-10-12 07:35] LABS: BASO # 0.1 K/uL (0.0-0.2); BASO % 0.5 % (0.0-2.0); EOS # 0.4 K/uL (0.0-0.7); EOS % 2.7 % (0.0-4.0); HEMATOCRIT 29.3 % (35.0-51.0); LYMPH # 1.2 K/uL (1.0-4.3); LYMPH % 9.5 % (20.0-40.0); MEAN CELL VOLUME 80.7 fL (80.0-94.0); MEAN CORPUSCULAR HEMOGLOBIN 26.4 pg (27.0-31.0); MEAN CORPUSCULAR HGB CONC 32.6 g/dL (33.0-37.0); MEAN PLATELET VOLUME 7.6 fL (7.2-11.7); MONO # 1.4 K/uL (0.0-0.8); MONO % 10.3 % (0.0-10.0); PLATELET COUNT 405 K/uL (130-400); RED CELL DISTRIBUTION WIDTH 14.6 % (11.5-14.5); WHITE BLOOD COUNT 13.2 K/uL (4.8-10.8)
[2016-10-12 07:59] LABS: BILIRUBIN,TOTAL 0.4 mg/dL (0.2-1.3)
[2016-10-12 08:00] LABS: ALB/GLOB RATIO 0.8 (1.0-2.1); PHOSPHOROUS 3.5 mg/dL (2.5-4.5); TOTAL PROTEIN 5.7 g/dL (6.3-8.3)
[2016-10-12 08:01] LABS: CALCIUM 7.4 mg/dl (8.6-10.4); MAGNESIUM 1.5 mg/dL (1.6-2.3)
[2016-10-12 09:32] LABS: EOSINOPHIL 1 % (0-4); NEUTROPHIL 82 % (50-75); TOTAL CELLS COUNTED 100
[2016-10-12] MEDS: Dorzolamide 2% Opht Sol 10ml OU SCH ×2 (10:00→18:00)
--- NOTE | 2016-10-12 12:10 | PN ---
DATE: 10/12/2016 LOCATION: 356. SUBJECTIVE: This is an 86-year-old male seen and examined in rounds today without significant clinic al changes or reported active bleeding. Appeared to be more awake, alert, oriented. He still has a Nair catheter in place. The entire chart is reviewed, including but not limited to the most recent lab and radiology study re sults, current and previous medication list, current and the previous medical events as well as aller gies to medication list. Case was discussed at length with the staff on the floor. The most recent lab results showed white blood cells of 13.2 with low hemoglobin 9.6, hematocrit 29.3 with low indice s but thrombocytosis with CO2 content is still low at 17 indicative of metabolic acidosis, with decre ased BUN at 54, creatinine 2.4 post-cystoscopy and colonoscopy with elevated blood glucose level to 3 43 and low calcium 7.4 and low magnesium of 1.5, with low total protein 5.7 and low albumin 2.6. PHYSICAL EXAMINATION: GENERAL: An 86-year-old male, awake, alert, oriented. VITAL SIGNS: Afebrile with pulse of 78, respiratory rate 20-22, blood pressure of 170/76. HEENT: Showed pale, dry oral mucoid membrane. Nonicteric sclerae. LUNGS: Few scattered crepitation, decreased air entry at bases. HEART: Positive S1 and S2. ABDOMEN: Soft with slight distention. No mass or organomegaly. No rebound tenderness or guarding. EXTREMITIES: Without significant clubbing, cyanosis or edema. NEUROLOGIC: No reported new neurologic deficits, sensory or motor. IMPRESSION: 1. Abnormal CT scan of the abdomen and the pelvis of unclear etiology. 2. Internal hemorrhoids, diverticulosis, left-sided colitis. 3. Anemia. 4. Status post cystoscopy. Please see urology report results. 5. Status post urinary retention due urethral stricture as per urology. 6. Known history of, but not limited to, hypertension, benign prostatic hypertrophy. 7. Renal insufficiency with electrolyte imbalance with hyperphosphatemia and hypocalcemia. SUGGESTION: 1. Continue current management. 2. Guaiac all the stool daily x 3. 3. Proton pump inhibitors.. Further recommendation to follow and if there is subsequent drop of hemoglobin and hematocrit, then u pper endoscopy to be kept in mind. Justin Ponce MD cc: 14 TT: 10/12/2016 12:10:10 Confirmation # [id number] Dictation # [id number]
--- NOTE | 2016-10-12 14:28 | CP.PCM.PN ---
Subjective - Date & Time of Evaluation Date of Evaluation: 10/12/16 Time of Evaluation: 14:00 - Subjective Subjective: Patient was seen and examined by me. He is S/P colonscopy, cystoscopy with dilatation garcia placement yesterday. This morning he denied chest pain, denied shortness of breath, denied abdominal pain, denied headache and denied nausea or vomiting. The garcia bag has clear yellow urine at this time. The creatine has decreased to 2.4 and patient reports abdomen feels much better Objective - Vital Signs/Intake and Output Vital Signs (last 24 hours): Temp Pulse Resp BP Pulse Ox 98.1 F 75 20 177/75 H 100 10/12/16 07:33 10/12/16 07:33 10/12/16 07:33 10/12/16 07:33 10/12/16 07:33 Intake and Output: 10/12/16 10/12/16 06:59 18:59 Intake Total 1200 Output Total 4250 Balance -3050 - Medications Medications: Current Medications Albuterol/Ipratropium (Duoneb 3 Mg/0.5 Mg (3 Ml) Ud) 3 ml INH RQ6 [facility] Last Admin: 10/12/16 13:15 Dose: 3 ml Aspirin (Aspirin Chewable) 81 mg PO DAILY [facility] Last Admin: 10/12/16 10:03 Dose: 81 mg Carvedilol (Coreg) 12.5 mg PO BID [facility] Last Admin: 10/12/16 10:05 Dose: 12.5 mg Cyanocobalamin (Vitamin B12 1000 Mcg/Ml Inj) 1,000 mcg IM MWF [facility] Last Admin: 10/11/16 15:01 Dose: 1,000 mcg Dorzolamide HCl (Trusopt) 0 ml OU BID [facility] Last Admin: 10/12/16 10:00 Dose: 1 applic Gabapentin (Neurontin) 100 mg PO TID [facility] Metronidazole (Flagyl) 500 mg in 100 mls @ 100 mls/hr IVPB Q8 [facility] Last Admin: 10/12/16 05:54 Dose: 100 mls/hr Sodium Chloride (Sodium Chloride 0.9%) 1,000 mls @ 50 mls/hr IV .Q20H [facility] Last Admin: 10/12/16 08:00 Dose: Not Given Ceftriaxone Sodium 1 gm/ (Sodium Chloride) 100 mls @ 100 mls/hr IVPB DAILY [facility] Last Admin: 10/12/16 10:07 Dose: 100 mls/hr Insulin Human Regular (Novolin R) 0 unit SC ACHS [facility] PRN Reason: Protocol Last Admin: 10/12/16 11:30 Dose: 8 unit Latanoprost (Xalatan Opht) 0 ml OS HS [facility] Last Admin: 10/11/16 21:23 Dose: 2.5 ml Metoclopramide HCl (Reglan) 5 mg IVP Q8 [facility] Last Admin: 10/12/16 05:51 Dose: 5 mg Morphine Sulfate (Morphine) 2 mg IVP Q4 PRN PRN Reason: Pain, severe (8-10) Pantoprazole Sodium (Protonix Inj) 40 mg IVP DAILY [facility] Last Admin: 10/12/16 09:56 Dose: 40 mg Rosuvastatin Calcium (Crestor) 5 mg PO HS [facility] Last Admin: 10/11/16 21:29 Dose: 5 mg Timolol Maleate (Timoptic 0.5% Ophth Soln) 0 drop OU BID [facility] Last Admin: 10/12/16 10:00 Dose: 1 applic - Labs Labs: 10/12/16 07:18 10/12/16 07:18 PT 15.4 SECONDS (9.7-12.2) H 10/09/16 21:50 INR 1.3 10/09/16 21:50 APTT 29 SECONDS (21-34) 10/09/16 21:50 - Constitutional Appears: No Acute Distress, Older Than Stated Age, Confused, Chronically Ill - Head Exam Head Exam: NORMAL INSPECTION - Eye Exam Eye Exam: EOMI - ENT Exam ENT Exam: Mucous Membranes Moist - Neck Exam Neck Exam: Normal Inspection - Respiratory Exam Respiratory Exam: Clear to Ausculation Bilateral, NORMAL BREATHING PATTERN - Cardiovascular Exam Cardiovascular Exam: REGULAR RHYTHM - GI/Abdominal Exam GI & Abdominal Exam: Soft, Normal Bowel Sounds - Neurological Exam Neurological Exam: Alert, Awake Neuro motor strength exam: Left Upper Extremity: 5, Right Upper Extremity: 5 - Psychiatric Exam Psychiatric exam: Normal Affect, Normal Mood - Skin Skin Exam: Pallor, Pallor Assessment and Plan - Assessment and Plan (Free Text) Assessment: 1. Prostate mass 5/6: Patient is status post cystoscopy with balloon dilitation and garcia placement. The creatine has decreased. Pain decreased. Abdomen soft CT abd/pelvis- enlarged heterogeneous and irregular appearance of the prostate gland worrisome for prostate cancer. Bladder distended. Garcia catheter insertion was not successful in the ED after several attempts 10/11/16: Dr. Ramirez was able to successfully place catheter via cystoscopy, optical internal urethrotomy and balloon dilatation of urethra. During procedure , large amount of urine, distention and inflammation was visualized. Culture was taken. Plan to leave garcia catheter in place until retention resolved. Consulted Urologist Dr Ramirez- Would like to go for cystoscopy 10/11 around noon. If unsuccessful, will try for suprapubic catheter. F/U recommendations. Pre- operative EKG, Chest Xray ordered. Consulted Heme/onc Dr Mishra- help appreciated. PSA elevated 216. Patient will need postate biopsy per Dr. Mishra and further work-up. He will also need bone scan to evaluate for metastasis given findings of sclerotic bone on imaging. Morphine 2mg IV q4h prn pain Detsky score 10; Class II 7% complications for cardiac risk in noncardiac surgical procedure. 2. SHANNAN 10/12: Likley obstruction from enlarged prostate, now has with garcia and renal function better. Continue to monitor I and Os. Basline kidney function unknown BUN/Cr Elevated Likely secondary to hydronephrosis IVF NS @50 cc Q20H Monitor I/Os 3. Hydronephrosis CT abd/pelvis- Moderate bilateral hydroureteronephrosis, no obstructing calculus identified Likely secondary to prostate mass obstruction. PSA elevated 216. BUN/Cr increasing to 92/5.4, GFR [address] Consulted Urologist Dr Ramirez- See recommendations above. urine culture - multiple species. Will repeat specimen. 4. Colitis 10/12: s/p colonoscopy - non bleeding internal hemorrhoids. Moderate diverticulosis in entire examined colon. No evidence of diverticular bleeding. Congested mucosa in distal descending colon. Biopsied. Hgb is stable Dr. Ponce recommends high fiber diet, continue on current medications. Patient to have repeat colonoscopy in 5 years. Patient to follow-up with Dr. Ponce in office in 5 weeks. Recommends Analpram HC cream 2.5% externally BID for [address] abd- cecal wall and terminal ileum appear thickened Leukocytosis of 16.1, left shift of 81. Afebrile Continue on IV Flagyl 500mg q8h and Rocephin 1 gm IVPB daily blood culture preliminary negative x [address] Ponce- help appreciated . 5. Colon mass / Biopsy pending at this time. CT abd- 4.8cm segment of severe wall thickening/narrowing of the rectosigmoid colon worrisome for malignant neoplasm Patient would benefit from colonscopy. Consulted Surgery Dr Coley- F/U recommendations Consulted GI Dr Ponce- F/U recommendations Consulted Heme/onc Dr Mishra CEA non-elevated 0.9 6. HTN Continue home medication Losartan 50mg PO daily Vitals q4h Will monitor and adjust meds as needed 7. Diabetes Mellitus HgA1C 6.6 Accuchecks ACHS ISS Hold home metformin due to SHANNAN. 8. Anemia /: Hgb stable for now. Currently 9.[address]- small right pleural effusion and associated consolidation Duonebs 3ml INH q6h [facility] 2L NC O2 as needed 10. Prophylactic measures Protonix 40mg IV daily SCDs PT/OT evaluation Palliative care consult to discuss plan for end of life care and code status with patient and leak hunter
--- NOTE | 2016-10-12 14:35 | CP.PCM.PN ---
Subjective - Date & Time of Evaluation Date of Evaluation: 10/12/16 Time of Evaluation: 14:33 - Subjective Subjective: Surgery: Dr. Coley Patient doing well today. Denies n/v/f/c. Reports bowel movement and tolerating diet. Patient s/p cystoscopy and colonoscopy yesterday. Objective - Vital Signs/Intake and Output Vital Signs (last 24 hours): Temp Pulse Resp BP Pulse Ox 98.1 F 75 20 177/75 H 100 10/12/16 07:33 10/12/16 07:33 10/12/16 07:33 10/12/16 07:33 10/12/16 07:33 Intake and Output: 10/12/16 10/12/16 06:59 18:59 Intake Total 1200 Output Total 4250 Balance -3050 - Medications Medications: Current Medications Albuterol/Ipratropium (Duoneb 3 Mg/0.5 Mg (3 Ml) Ud) 3 ml INH RQ6 [facility] Last Admin: 10/12/16 13:15 Dose: 3 ml Aspirin (Aspirin Chewable) 81 mg PO DAILY [facility] Last Admin: 10/12/16 10:03 Dose: 81 mg Carvedilol (Coreg) 12.5 mg PO BID [facility] Last Admin: 10/12/16 10:05 Dose: 12.5 mg Cyanocobalamin (Vitamin B12 1000 Mcg/Ml Inj) 1,000 mcg IM MWF [facility] Last Admin: 10/11/16 15:01 Dose: 1,000 mcg Dorzolamide HCl (Trusopt) 0 ml OU BID [facility] Last Admin: 10/12/16 10:00 Dose: 1 applic Gabapentin (Neurontin) 100 mg PO TID [facility] Metronidazole (Flagyl) 500 mg in 100 mls @ 100 mls/hr IVPB Q8 [facility] Last Admin: 10/12/16 05:54 Dose: 100 mls/hr Sodium Chloride (Sodium Chloride 0.9%) 1,000 mls @ 50 mls/hr IV .Q20H [facility] Last Admin: 10/12/16 08:00 Dose: Not Given Ceftriaxone Sodium 1 gm/ (Sodium Chloride) 100 mls @ 100 mls/hr IVPB DAILY [facility] Last Admin: 10/12/16 10:07 Dose: 100 mls/hr Insulin Human Regular (Novolin R) 0 unit SC ACHS [facility] PRN Reason: Protocol Last Admin: 10/12/16 11:30 Dose: 8 unit Latanoprost (Xalatan Opht) 0 ml OS HS [facility] Last Admin: 10/11/16 21:23 Dose: 2.5 ml Metoclopramide HCl (Reglan) 5 mg IVP Q8 [facility] Last Admin: 10/12/16 05:51 Dose: 5 mg Morphine Sulfate (Morphine) 2 mg IVP Q4 PRN PRN Reason: Pain, severe (8-10) Pantoprazole Sodium (Protonix Inj) 40 mg IVP DAILY [facility] Last Admin: 10/12/16 09:56 Dose: 40 mg Rosuvastatin Calcium (Crestor) 5 mg PO HS [facility] Last Admin: 10/11/16 21:29 Dose: 5 mg Timolol Maleate (Timoptic 0.5% Ophth Soln) 0 drop OU BID [facility] Last Admin: 10/12/16 10:00 Dose: 1 applic - Labs Labs: 10/12/16 07:18 10/12/16 07:18 PT 15.4 SECONDS (9.7-12.2) H 10/09/16 21:50 INR 1.3 10/09/16 21:50 APTT 29 SECONDS (21-34) 10/09/16 21:50 - Constitutional Appears: Non-toxic, No Acute Distress - Head Exam Head Exam: ATRAUMATIC, NORMOCEPHALIC - Eye Exam Eye Exam: EOMI - ENT Exam ENT Exam: Mucous Membranes Moist - Respiratory Exam Respiratory Exam: absent: Respiratory Distress - Cardiovascular Exam Cardiovascular Exam: REGULAR RHYTHM Assessment and Plan - Assessment and Plan (Free Text) Assessment: 86 y/o male w/ Ct findings concerned for colon mass Plan: -cystoscopy + for urethral stricture -colonoscopy w/o evidence of colon mass -possible external compression from bladder?? -will f/u biopsy results -may consider repeat CT scan for comparison -no surgical intervention at this time -d/w Dr. Vianca Dai PGY1
[2016-10-12] MEDS: Latanoprost 2.5 ml Opht Soln OS SCH (22:04)
[2016-10-13] MEDS: Albuterol-Ipratrop 3 mg / 0.5 (3 ml) UD INH SCH ×3 (01:37→13:23)
[2016-10-13] MEDS: metroNIDAZOLE IV 500 mg/100 ml 500 MG/100 ML BAG IVPB SCH ×3 (05:51→22:41)
[2016-10-13 06:58] LABS: BASO # 0.1 K/uL (0.0-0.2); BASO % 0.7 % (0.0-2.0); EOS # 0.5 K/uL (0.0-0.7); EOS % 4.2 % (0.0-4.0); HEMATOCRIT 27.9 % (35.0-51.0); LYMPH # 1.7 K/uL (1.0-4.3); LYMPH % 13.6 % (20.0-40.0); MEAN CELL VOLUME 80.9 fL (80.0-94.0); MEAN CORPUSCULAR HEMOGLOBIN 26.6 pg (27.0-31.0); MEAN CORPUSCULAR HGB CONC 32.8 g/dL (33.0-37.0); MEAN PLATELET VOLUME 7.4 fL (7.2-11.7); MONO # 1.3 K/uL (0.0-0.8); MONO % 10.6 % (0.0-10.0); WHITE BLOOD COUNT 12.7 K/uL (4.8-10.8)
[2016-10-13 07:11] LABS: CHLORIDE 110 mmol/L (98-107)
[2016-10-13 07:12] LABS: POTASSIUM 3.4 mmol/L (3.6-5.2); SODIUM 143 mmol/L (132-148)
[2016-10-13 07:14] LABS: ALB/GLOB RATIO 0.8 (1.0-2.1); ALKALINE PHOSPHATASE 60 U/L (38-126); ALT/SGPT 29 U/L (21-72); AST/SGOT 27 U/L (17-59); BILIRUBIN,TOTAL 0.5 mg/dL (0.2-1.3); BLOOD UREA NITROGEN 29 mg/dL (9-20); CARBON DIOXIDE 20 mmol/L (22-30); GFR AFRICAN-AMERICAN > 60; GLUCOSE,RANDOM 257 mg/dL (75-110); TOTAL PROTEIN 5.9 g/dL (6.3-8.3)
[2016-10-13 07:15] LABS: CALCIUM 7.6 mg/dl (8.6-10.4); MAGNESIUM 1.2 mg/dL (1.6-2.3); PHOSPHOROUS 2.8 mg/dL (2.5-4.5)
--- NOTE | 2016-10-13 07:21 | CP.PCM.CON ---
Past Patient History - Past Medical History & Family History Past Medical History?: Yes - Past Social History Smoking Status: Never Smoked - CARDIAC Hx Hypertension: Yes - PULMONARY Hx Respiratory Disorders: No - NEUROLOGICAL Hx Neurological Disorder: No - HEENT Hx HEENT Problems: No - RENAL Hx Chronic Kidney Disease: No - ENDOCRINE/METABOLIC Hx Diabetes Mellitus Type 2: Yes - HEMATOLOGICAL/ONCOLOGICAL Hx Blood Disorders: No - MUSCULOSKELETAL/RHEUMATOLOGICAL Hx Falls: No Hx Osteoarthritis: Yes - GASTROINTESTINAL Hx Gastrointestinal Disorders: No - GENITOURINARY/GYNECOLOGICAL Hx Genitourinary Disorders: No - PSYCHIATRIC Hx Substance Use: No - SURGICAL HISTORY Hx Surgeries: Yes Other/Comment: Prostate - ANESTHESIA Hx Anesthesia: No Hx Anesthesia Reactions: No Hx Malignant Hyperthermia: No Has any member of the family had a problem w/ anesthesia?: No Meds Allergies/Adverse Reactions: Allergies Allergy/AdvReac Type Severity Reaction Status Date / Time No Known Allergies Allergy Verified 10/09/16 11:38 - Medications Medications: Current Medications Albuterol/Ipratropium (Duoneb 3 Mg/0.5 Mg (3 Ml) Ud) 3 ml INH RQ6 ON [facility] OF [facility] Last Admin: 10/13/16 01:37 Dose: 3 ml Aspirin (Aspirin Chewable) 81 mg PO DAILY ON [facility] OF [facility] Last Admin: 10/12/16 10:03 Dose: 81 mg Carvedilol (Coreg) 12.5 mg PO BID ON [facility] OF [facility] Last Admin: 10/12/16 18:09 Dose: 12.5 mg Cyanocobalamin (Vitamin B12 1000 Mcg/Ml Inj) 1,000 mcg IM MWF ON [facility] OF [facility] Last Admin: 10/11/16 15:01 Dose: 1,000 mcg Dorzolamide HCl (Trusopt) 0 ml OU BID ON LICENSE OF [facility] Last Admin: 10/12/16 18:00 Dose: 1 applic Gabapentin (Neurontin) 100 mg PO TID ON LICENSE OF [facility] Metronidazole (Flagyl) 500 mg in 100 mls @ 100 mls/hr IVPB Q8 ON [facility] OF [facility] Last Admin: 10/13/16 05:51 Dose: 100 mls/hr Ceftriaxone Sodium 1 gm/ (Sodium Chloride) 100 mls @ 100 mls/hr IVPB DAILY ON [facility] OF [facility] Last Admin: 10/12/16 10:07 Dose: 100 mls/hr Insulin Human Regular (Novolin R) 0 unit SC ACHS ON LICENSE OF [facility] PRN Reason: Protocol Last Admin: 10/12/16 21:48 Dose: Not Given Latanoprost (Xalatan Opht) 0 ml OS HS ON LICENSE OF [facility] Last Admin: 10/12/16 22:04 Dose: 2.5 ml Metoclopramide HCl (Reglan) 5 mg IVP Q8 ON [facility] OF [facility] Last Admin: 10/13/16 05:53 Dose: 5 mg Morphine Sulfate (Morphine) 2 mg IVP Q4 PRN PRN Reason: Pain, severe (8-10) Pantoprazole Sodium (Protonix Inj) 40 mg IVP DAILY ON [facility] Last Admin: 10/12/16 09:56 Dose: 40 mg Rosuvastatin Calcium (Crestor) 5 mg PO HS ON [facility] OF [facility] Last Admin: 10/12/16 21:52 Dose: 5 mg Timolol Maleate (Timoptic 0.5% Ophth Soln) 0 drop OU BID ON LICENSE OF [facility] Last Admin: 10/12/16 18:11 Dose: 1 applic Results - Vital Signs Recent Vital Signs: Last Vital Signs Temp 98.7 F 10/13/16 00:11 Pulse 71 10/13/16 00:11 Resp 20 10/13/16 00:11 BP 161/68 H 10/13/16 00:11 Pulse Ox 97 10/13/16 00:11 - Labs Result Diagrams: 10/13/16 06:50 10/13/16 06:50 Labs: Laboratory Results - last 24 hr 10/12/16 10/12/16 10/12/16 07:18 07:18 07:34 WBC 13.2 H RBC 3.62 L Hgb 9.6 L Hct 29.3 L MCV 80.7 MCH 26.4 L MCHC 32.6 L RDW 14.6 H Plt Count 405 H MPV 7.6 Neut % (Auto) 77.0 H Lymph % (Auto) 9.5 L Waller % (Auto) 10.3 H Eos % (Auto) 2.7 Baso % (Auto) 0.5 Neut # 10.1 H Lymph # 1.2 Waller # 1.4 H Eos # 0.4 Baso # 0.1 Neutrophils % (Manual) 82 H Lymphocytes % (Manual) 8 L Monocytes % (Manual) 9 Eosinophils % (Manual) 1 Toxic Granulation Present Platelet Estimate Normal Polychromasia Slight Hypochromasia (manual) Slight Poikilocytosis (manual Slight Anisocytosis (manual) Slight Ovalocytes Slight [place] Cells Slight Sodium 140 Potassium 4.0 Chloride 110 H Carbon Dioxide 17 L Anion Gap 17 BUN 54 H Creatinine 2.4 H Est GFR ( Amer) 31 Est GFR (Non-Af Amer) 26 POC Glucose (mg/dL) 343 H Random Glucose 321 H Calcium 7.4 L Phosphorus 3.5 Magnesium 1.5 L Total Bilirubin 0.4 AST 29 ALT 26 Alkaline Phosphatase 71 Total Protein 5.7 L Albumin 2.6 L Globulin 3.1 Albumin/Globulin Ratio 0.8 L 10/12/16 10/12/16 10/12/16 11:44 17:30 21:10 WBC RBC Hgb Hct MCV MCH MCHC RDW Plt Count MPV Neut % (Auto) Lymph % (Auto) Waller % (Auto) Eos % (Auto) Baso % (Auto) Neut # Lymph # Waller # Eos # Baso # Neutrophils % (Manual) Lymphocytes % (Manual) Monocytes % (Manual) Eosinophils % (Manual) Toxic Granulation Platelet Estimate Polychromasia Hypochromasia (manual) Poikilocytosis (manual Anisocytosis (manual) Ovalocytes [place] Cells Sodium Potassium Chloride Carbon Dioxide Anion Gap BUN Creatinine Est GFR ( Amer) Est GFR (Non-Af Amer) POC Glucose (mg/dL) 351 H 281 H 268 H Random Glucose Calcium Phosphorus Magnesium Total Bilirubin AST ALT Alkaline Phosphatase Total Protein Albumin Globulin Albumin/Globulin Ratio 10/13/16 10/13/16 06:50 06:50 WBC 12.7 H RBC 3.44 L Hgb 9.1 L Hct 27.9 L MCV 80.9 MCH 26.6 L MCHC 32.8 L RDW 15.0 H Plt Count 376 MPV 7.4 Neut % (Auto) 70.9 Lymph % (Auto) 13.6 L Waller % (Auto) 10.6 H Eos % (Auto) 4.2 H Baso % (Auto) 0.7 Neut # 9.0 H Lymph # 1.7 Waller # 1.3 H Eos # 0.5 Baso # 0.1 Neutrophils % (Manual) Lymphocytes % (Manual) Monocytes % (Manual) Eosinophils % (Manual) Toxic Granulation Platelet Estimate Polychromasia Hypochromasia (manual) Poikilocytosis (manual Anisocytosis (manual) Ovalocytes [place] Cells Sodium 143 Potassium 3.4 L Chloride 110 H Carbon Dioxide 20 L Anion Gap 16 BUN 29 H Creatinine 1.2 Est GFR ( Amer) > 60 Est GFR (Non-Af Amer) 58 POC Glucose (mg/dL) Random Glucose 257 H Calcium 7.6 L Phosphorus 2.8 Magnesium 1.2 L Total Bilirubin 0.5 AST 27 ALT 29 Alkaline Phosphatase 60 Total Protein 5.9 L Albumin 2.6 L Globulin 3.2 Albumin/Globulin Ratio 0.8 L
--- NOTE | 2016-10-13 07:39 | CP.PCM.PN ---
Subjective - Date & Time of Evaluation Date of Evaluation: 10/13/16 Time of Evaluation: 07:36 - Subjective Subjective: Surgery: Dr. Coley Patient has no complaints today. States he feels better. catheter in place draining clear yellow urine. He is tolerating diet. Per nursing no acute events. Objective - Vital Signs/Intake and Output Vital Signs (last 24 hours): Temp Pulse Resp BP Pulse Ox 98.7 F 71 20 161/68 H 97 10/13/16 00:11 10/13/16 00:11 10/13/16 00:11 10/13/16 00:11 10/13/16 00:11 Intake and Output: 10/13/16 10/13/16 06:59 18:59 Output Total 1500 Balance -1500 - Medications Medications: Current Medications Albuterol/Ipratropium (Duoneb 3 Mg/0.5 Mg (3 Ml) Ud) 3 ml INH RQ6 [facility] Last Admin: 10/13/16 01:37 Dose: 3 ml Aspirin (Aspirin Chewable) 81 mg PO DAILY [facility] Last Admin: 10/12/16 10:03 Dose: 81 mg Carvedilol (Coreg) 12.5 mg PO BID [facility] Last Admin: 10/12/16 18:09 Dose: 12.5 mg Cyanocobalamin (Vitamin B12 1000 Mcg/Ml Inj) 1,000 mcg IM MWF [facility] Last Admin: 10/11/16 15:01 Dose: 1,000 mcg Dorzolamide HCl (Trusopt) 0 ml OU BID [facility] Last Admin: 10/12/16 18:00 Dose: 1 applic Gabapentin (Neurontin) 100 mg PO TID [facility] Metronidazole (Flagyl) 500 mg in 100 mls @ 100 mls/hr IVPB Q8 [facility] Last Admin: 10/13/16 05:51 Dose: 100 mls/hr Ceftriaxone Sodium 1 gm/ (Sodium Chloride) 100 mls @ 100 mls/hr IVPB DAILY [facility] Last Admin: 10/12/16 10:07 Dose: 100 mls/hr Insulin Human Regular (Novolin R) 0 unit SC ACHS [facility] PRN Reason: Protocol Last Admin: 10/12/16 21:48 Dose: Not Given Latanoprost (Xalatan Opht) 0 ml OS HS [facility] Last Admin: 10/12/16 22:04 Dose: 2.5 ml Metoclopramide HCl (Reglan) 5 mg IVP Q8 [facility] Last Admin: 10/13/16 05:53 Dose: 5 mg Morphine Sulfate (Morphine) 2 mg IVP Q4 PRN PRN Reason: Pain, severe (8-10) Pantoprazole Sodium (Protonix Inj) 40 mg IVP DAILY [facility] Last Admin: 10/12/16 09:56 Dose: 40 mg Rosuvastatin Calcium (Crestor) 5 mg PO HS [facility] Last Admin: 10/12/16 21:52 Dose: 5 mg Timolol Maleate (Timoptic 0.5% Ophth Soln) 0 drop OU BID [facility] Last Admin: 10/12/16 18:11 Dose: 1 applic - Labs Labs: 10/13/16 06:50 10/13/16 06:50 PT 15.4 SECONDS (9.7-12.2) H 10/09/16 21:50 INR 1.3 10/09/16 21:50 APTT 29 SECONDS (21-34) 10/09/16 21:50 - Constitutional Appears: Non-toxic, No Acute Distress, Chronically Ill - Head Exam Head Exam: ATRAUMATIC, NORMOCEPHALIC - ENT Exam ENT Exam: Mucous Membranes Moist - Respiratory Exam Respiratory Exam: NORMAL BREATHING PATTERN. absent: Respiratory Distress - Cardiovascular Exam Cardiovascular Exam: REGULAR RHYTHM. absent: Tachycardia - GI/Abdominal Exam GI & Abdominal Exam: Soft. absent: Distended, Tenderness - Exam Additional comments: catheter - Neurological Exam Neurological Exam: Alert, Awake - Psychiatric Exam Psychiatric exam: Normal Affect, Normal Mood - Skin Skin Exam: Dry, Normal Color, Warm Assessment and Plan - Assessment and Plan (Free Text) Assessment: 86 y/o male consulted for possible colon mass Plan: -no mass seen on colonoscopy -await path results -no surgical intervention at this time -further recs per Dr. Vianca Dai PGY1
--- NOTE | 2016-10-13 09:17 | PN ---
DATE: 10/13/2016 LOCATION: 356, bed B. This is an 86-year-old male, seen and examined in rounds today without significant clinical changes o r reported active bleeding, post colonoscopy and cystoscopy. The patient tolerated oral intake witho ut reported nausea or vomiting, but with abdominal distention. The entire chart is reviewed including, but not limited to, the most recent lab and radiology study r esults, current and previous medication lists, current and previous medical events as well as allergi es to medication list. Today's labs showed white blood cells still elevated to 12.7 with low hemoglobin 9.1, low hematocrit 27.9 with normal platelet count and low potassium 3.4 with low CO2 content to 20 indicative of metabo lic acidosis. BUN corrected to 29 with normal creatinine, but elevated blood glucose level to 348 wi th low calcium 7.6 and low magnesium 1.2 with low albumin 2.6 with low total protein 5.9. Case discussed at length with the medical staff on the floor. PHYSICAL EXAMINATION: GENERAL: An 86-year-old male, awake, alert. VITAL SIGNS: Afebrile with heart rate of 76, respiratory rate 20-22, blood pressure 166/64. HEENT: Showed pale, dry oral mucoid membrane. Nonicteric sclerae. LUNGS: Few scattered crepitation, decreased air entry at bases. HEART: Positive S1 and S2. ABDOMEN: Soft. Bowel sounds are present with slight generalized tenderness. No mass or organomegal y. No rebound tenderness or guarding. EXTREMITIES: Without significant clubbing, cyanosis or edema. NEUROLOGIC: No new reported neurological deficits, sensory or motor. IMPRESSION: 1. Abnormal CAT scan of the abdomen and the pelvis. 2. Anemia. 3. Diverticulosis with left-sided colitis. 4. Status post cholecystectomy as well as cystoscopy, patient still has Nair catheter in place with clean yellow urine. 5. Status post urinary retention due to urethral stricture, as per urology senior business consultant. 6. Known history of, but not limited to, benign prostatic hypertrophy, hypertension. 7. Electrolyte imbalance, improving. SUGGESTION: 1. Agree with your plan. 2. Continue current IV antibiotics, may add Flagyl IV. 3. Follow up on cancer markers. 4. If the patient's hemoglobin and hematocrit drop furthermore, then consider upper endoscopy. Justin Ponce MD cc: 14 TT: 10/13/2016 09:17:05 Confirmation # [id number] Dictation # [id number] en
[2016-10-13] MEDS ORDERED: Potassium Chloride 20 mEq ER Tab PO ONE ×2 (09:31→13:42)
[2016-10-13] MEDS: (Novolin R) Insulin Human Regular 100 units/ml vial SC SCH ×4 (09:44→22:42)
--- NOTE | 2016-10-13 11:48 | CP.PCM.PN ---
Subjective - Date & Time of Evaluation Date of Evaluation: 10/13/16 Time of Evaluation: 11:00 - Subjective Subjective: Patient was seen and examined He reports eating well. Also denied abdominal pain, denied chest pain, denied shortness of breath, denied palpitations, denied headache. His renal function is much better, creatine is down to 1.2 with the garcia cathter. Abdomen is soft and not distended, he reports feeling much more comfortable with the garcia. Also WBC has decreased, urine culture grew out +enteroccous faecalis, sensistive to Vancomycin - will start 500mg IV BID and check level tomorrow. At this time pending biopsy results. As mentioned previously he came to the hospital with HSANNAN and Hydronephrosis from obstruction that could be prostate CA. He had a cystoscopy and garcia placed. His renal function has improved signifigantly and WBC decreased as well. He also had colonscopy as well. Objective - Vital Signs/Intake and Output Vital Signs (last 24 hours): Temp Pulse Resp BP Pulse Ox 98 F 82 20 182/75 H 98 10/13/16 08:00 10/13/16 08:00 10/13/16 08:00 10/13/16 08:00 10/13/16 08:00 Intake and Output: 10/13/16 10/13/16 06:59 18:59 Intake Total 675 Output Total 1500 1400 Balance -1500 -725 - Medications Medications: Current Medications Albuterol/Ipratropium (Duoneb 3 Mg/0.5 Mg (3 Ml) Ud) 3 ml INH RQ6 [facility] Last Admin: 10/13/16 07:22 Dose: 3 ml Aspirin (Aspirin Chewable) 81 mg PO DAILY [facility] Last Admin: 10/13/16 09:30 Dose: 81 mg Carvedilol (Coreg) 12.5 mg PO BID [facility] Last Admin: 10/13/16 09:30 Dose: 12.5 mg Cyanocobalamin (Vitamin B12 1000 Mcg/Ml Inj) 1,000 mcg IM MWF [facility] Last Admin: 10/11/16 15:01 Dose: 1,000 mcg Dorzolamide HCl (Trusopt) 0 ml OU BID [facility] Last Admin: 10/12/16 18:00 Dose: 1 applic Gabapentin (Neurontin) 100 mg PO TID [facility] Metronidazole (Flagyl) 500 mg in 100 mls @ 100 mls/hr IVPB Q8 [facility] Last Admin: 10/13/16 05:51 Dose: 100 mls/hr Vancomycin HCl 500 mg/ Sodium (Chloride) 100 mls @ 100 mls/hr IVPB Q12H [facility] Insulin Human Regular (Novolin R) 0 unit SC ACHS [facility] PRN Reason: Protocol Last Admin: 10/13/16 09:44 Dose: 8 unit Latanoprost (Xalatan Opht) 0 ml OS HS [facility] Last Admin: 10/12/16 22:04 Dose: 2.5 ml Metoclopramide HCl (Reglan) 5 mg IVP Q8 [facility] Last Admin: 10/13/16 05:53 Dose: 5 mg Morphine Sulfate (Morphine) 2 mg IVP Q4 PRN PRN Reason: Pain, severe (8-10) Pantoprazole Sodium (Protonix Inj) 40 mg IVP DAILY [facility] Last Admin: 10/13/16 09:30 Dose: 40 mg Rosuvastatin Calcium (Crestor) 5 mg PO HS [facility] Last Admin: 10/12/16 21:52 Dose: 5 mg Timolol Maleate (Timoptic 0.5% Ophth Soln) 0 drop OU BID [facility] Last Admin: 10/12/16 18:11 Dose: 1 applic - Labs Labs: 10/13/16 06:50 10/13/16 06:50 PT 15.4 SECONDS (9.7-12.2) H 10/09/16 21:50 INR 1.3 10/09/16 21:50 APTT 29 SECONDS (21-34) 10/09/16 21:50 - Constitutional Appears: No Acute Distress, Cachectic, Chronically Ill - Head Exam Head Exam: NORMAL INSPECTION - Eye Exam Eye Exam: EOMI, Normal appearance - ENT Exam ENT Exam: Mucous Membranes Moist - Respiratory Exam Respiratory Exam: Clear to Ausculation Bilateral, NORMAL BREATHING PATTERN - Cardiovascular Exam Cardiovascular Exam: REGULAR RHYTHM. absent: Tachycardia - GI/Abdominal Exam GI & Abdominal Exam: Soft. absent: Distended, Firm, Guarding, Rigid, Tenderness - Extremities Exam Extremities Exam: Full ROM - Neurological Exam Neurological Exam: Alert, Awake, CN II-XII Intact, Oriented x3 Neuro motor strength exam: Left Upper Extremity: 5, Right Upper Extremity: 5 - Psychiatric Exam Psychiatric exam: Normal Affect, Normal Mood - Skin Skin Exam: Pallor, Warm Assessment and Plan - Assessment and Plan (Free Text) Assessment: 1. Prostate mass 10/13: PSA is very high, now has garcia. Concern is for prostate CA 10/12: Patient is status post cystoscopy with balloon dilitation and garcia placement. The creatine has decreased. Pain decreased. Abdomen soft CT abd/pelvis- enlarged heterogeneous and irregular appearance of the prostate gland worrisome for prostate cancer. Bladder distended. Garcia catheter insertion was not successful in the ED after several attempts 10/11/16: Dr. Ramirez was able to successfully place catheter via cystoscopy, optical internal urethrotomy and balloon dilatation of urethra. During procedure , large amount of urine, distention and inflammation was visualized. Culture was taken. Plan to leave garcia catheter in place until retention resolved. Consulted Urologist Dr Ramirez- Would like to go for cystoscopy 10/11 around noon. If unsuccessful, will try for suprapubic catheter. F/U recommendations. Pre- operative EKG, Chest Xray ordered. Consulted Heme/onc Dr Mishra- help appreciated. PSA elevated 216. Patient will need postate biopsy per Dr. Mishra and further work-up. He will also need bone scan to evaluate for metastasis given findings of sclerotic bone on imaging. Morphine 2mg IV q4h prn pain Detsky score 10; Class II 7% complications for cardiac risk in noncardiac surgical procedure. 2. SHANNAN 10/13: Creatine now almost below 1 10/12: Likley obstruction from enlarged prostate, now has with garcia and renal function better. Continue to monitor I and Os. Basline kidney function unknown BUN/Cr Elevated Likely secondary to hydronephrosis IVF NS @50 cc Q20H Monitor I/Os 3. Hydronephrosis CT abd/pelvis- Moderate bilateral hydroureteronephrosis, no obstructing calculus identified Likely secondary to prostate mass obstruction. PSA elevated 216. BUN/Cr increasing to 92/5.4, GFR [address] Consulted Urolog[address] Ramirez- See recommendations above. urine culture - multiple species. Will repeat specimen. 4. Colitis 10/12: s/p colonoscopy - non bleeding internal hemorrhoids. Moderate diverticulosis in entire examined colon. No evidence of diverticular bleeding. Congested mucosa in distal descending colon. Biopsied. Hgb is stable Dr. Ponce recommends high fiber diet, continue on current medications. Patient to have repeat colonoscopy in years. Patient to follow-up with Dr. Ponce in office in 5 weeks. Recommends Analpram HC cream 2.5% externally BID for [address] abd- cecal wall and terminal ileum appear thickened Leukocytosis of 16.1, left shift of 81. Afebrile Continue on IV Flagyl 500mg q8h and Rocephin 1 gm IVPB daily blood culture preliminary negative x [address] Ponce- help appreciated . 5. Colon mass 5/ Biopsy pending at this time. CT abd- 4.8cm segment of severe wall thickening/narrowing of the rectosigmoid colon worrisome for malignant neoplasm Patient would benefit from colonscopy. Consulted Surgery Dr Coley- F/U recommendations Consulted GI Dr Ponce- F/U recommendations Consulted Heme/onc Dr Mishra CEA non-elevated 0.9 6. HTN Continue home medication Losartan 50mg PO daily Vitals q4h Will monitor and adjust meds as needed 7. Diabetes Mellitus HgA1C 6.6 Accuchecks ACHS ISS Hold home metformin due to SHANNAN. 8. Anemia /: Hgb stable for now. Currently 9.[address]- small right pleural effusion and associated consolidation Duonebs 3ml INH q6h [facility] 2L NC O2 as needed 10. 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
[2016-10-13] MEDS: Dorzolamide 2% Opht Sol 10ml OU SCH ×2 (13:33→18:01)
[2016-10-13] MEDS: Magnesium Sulfate 1 gm in D5W 1 GM/100 ML BAG IVPB SCH (13:41)
--- NOTE | 2016-10-13 21:34 | CON ---
DATE: 10/09/[address] Justin Ponce to Dr. Chris Espinoza. I was called for a GI consultation by the admitting medical team. The patient is seen and fully exam ined on 10/09/2016 as requested by the medical nursing staff on the floor. The entire chart is reviewed including, but not limited to, the most recent lab and radiology study r esults, current and previous medication lists, current and the previous medical events as well as all ergies to medication lists and all the available current and the previous medical record. Case discussed with the staff on the floor. HISTORY OF PRESENT ILLNESS: This is an 86-year-old male who was admitted to the hospital through the Emergency Room due to complaint of severe left-sided lower abdominal pain that started about 7-8 day s ago, had been getting worse, but no reported active bleeding. No chills or fever. No chest pain o r palpitation. However, patient had intermittent periods of mild dyspepsia with less oral intake at that time. LABORATORY DATA: After being admitted to the hospital, initial blood workup showed leukocytosis of 1 8.3 with low hemoglobin 10.5 and low hematocrit 31.5 with thrombocytopenia 455, with increased blood glucose level to 184, increased BUN 81, creatinine 3.9 with low sodium of 131 and low CO2 content of 19, indicative of metabolic acidosis. The patient had abdominal and pelvic CAT scan. Films and official reports were seen in details with suggestion of possible colon mass lesion as well as significant changes in the area of the rectosigmo id colon, besides abnormal finding of urinary tract. PHYSICAL EXAMINATION: GENERAL: An 86-year-old male, appears to be awake, alert, oriented, complaining of generalized weakn ess and malaise. VITAL SIGNS: Afebrile with pulse of 86, respiratory rate 16-18 with blood pressure of 160/72. HEENT: Showed pale, dry oral mucoid membrane. Nonicteric sclerae. LYMPH NODES: No lymphadenitis or lymphadenopathy. LUNGS: A few scattered crepitations. Decreased air entry at bases. HEART: Positive S1 and S2. ABDOMEN: Soft with generalized tenderness, but mainly in the left lower quadrant area as well as the left midquadrant area with mild tenderness in the suprapubic area. No mass or organomegaly. No phillip ound tenderness or guarding. RECTAL: Positive tone. Vault is empty. EXTREMITIES: Lower extremities, mild edematous changes. No clubbing or cyanosis. NEUROLOGIC: No reported new neurological deficits, sensory or motor. PAST MEDICAL HISTORY: Includin. Hypertension. 2. Peptic ulcer disease. 3. Benign prostatic hypertrophy. FAMILY HISTORY: Unknown. SOCIAL HISTORY: No reported recent history of cigarette smoking or alcohol intake. CURRENT MEDICATIONS: Medication lists were reviewed. ALLERGY TO MEDICATION: List is reevaluated and reviewed. IMPRESSION: 1. Reexacerbation of peptic ulcer disease. 2. Abnormal CAT scan of the abdomen and pelvis, to rule out a primary colon neoplastic lesion. 3. Anemia, most likely secondary to above. 4. Abnormal urinary tract with enlarged prostate by the radiology studies, to rule out possible neop lastic changes with urinary retention. 5. Renal insufficiency, most likely secondary to above. 6. Electrolyte imbalance with hyponatremia and hyperglycemia. 7. Leukocytosis most likely secondary to above. SUGGESTION: 1. Continue current management. 2. Blood cultures x 2. 3. Guaiac all the stool daily x 3. 4. Proton pump inhibitors. 5. Endoscopic evaluation of the GI tract when the patient is more stable clinically and after adequa te preparation. 6. Further recommendations to follow. Case discussed at length with Dr. Espinoza on several occasions. Thank you for letting me participate in your patient's case management. Justin Ponce MD cc: 14 TT: 10/13/2016 21:33:50 Confirmation # [id number] Dictation # [id number] taisha
[2016-10-13] MEDS: Latanoprost 2.5 ml Opht Soln OS SCH (22:43)
[2016-10-14] MEDS: Albuterol-Ipratrop 3 mg / 0.5 (3 ml) UD INH SCH ×3 (01:50→20:37)
[2016-10-14] MEDS: metroNIDAZOLE IV 500 mg/100 ml 500 MG/100 ML BAG IVPB SCH ×3 (05:43→21:34)
[2016-10-14 07:46] LABS: BASO # 0.1 K/uL (0.0-0.2); BASO % 0.5 % (0.0-2.0); CHLORIDE 103 mmol/L (98-107); EOS # 0.3 K/uL (0.0-0.7); EOS % 1.7 % (0.0-4.0); HEMATOCRIT 28.3 % (35.0-51.0); LYMPH # 1.7 K/uL (1.0-4.3); LYMPH % 10.9 % (20.0-40.0); MEAN CELL VOLUME 80.5 fL (80.0-94.0); MEAN CORPUSCULAR HEMOGLOBIN 26.4 pg (27.0-31.0); MEAN CORPUSCULAR HGB CONC 32.8 g/dL (33.0-37.0); MEAN PLATELET VOLUME 7.5 fL (7.2-11.7); MONO # 1.3 K/uL (0.0-0.8); POTASSIUM 2.9 mmol/L (3.6-5.2); RED CELL DISTRIBUTION WIDTH 15.1 % (11.5-14.5); SODIUM 140 mmol/L (132-148); WHITE BLOOD COUNT 15.9 K/uL (4.8-10.8)
[2016-10-14 07:48] LABS: BILIRUBIN,TOTAL 0.5 mg/dL (0.2-1.3); GFR AFRICAN-AMERICAN > 60
[2016-10-14 07:49] LABS: ALB/GLOB RATIO 0.8 (1.0-2.1); ALKALINE PHOSPHATASE 58 U/L (38-126); ALT/SGPT 34 U/L (21-72); AST/SGOT 35 U/L (17-59); BLOOD UREA NITROGEN 18 mg/dL (9-20); CARBON DIOXIDE 22 mmol/L (22-30); GLUCOSE,RANDOM 285 mg/dL (75-110); PHOSPHOROUS 2.8 mg/dL (2.5-4.5); TOTAL PROTEIN 5.9 g/dL (6.3-8.3)
[2016-10-14 07:50] LABS: CALCIUM 7.4 mg/dl (8.6-10.4); MAGNESIUM 1.4 mg/dL (1.6-2.3)
[2016-10-14] MEDS ORDERED: Potassium Chloride 20 mEq ER Tab PO ONE ×4 (07:58→17:16)
[2016-10-14] MEDS: (Novolin R) Insulin Human Regular 100 units/ml vial SC SCH ×4 (08:18→21:58)
[2016-10-14] MEDS ORDERED: Magnesium Sulfate 1 gm in D5W 1 GM/100 ML BAG IVPB ONE (09:00)
--- NOTE | 2016-10-14 09:12 | CP.PCM.PN ---
Subjective - Date & Time of Evaluation Date of Evaluation: 10/14/16 Time of Evaluation: 09:00 - Subjective Subjective: Patient seen and examined at the bedside. No acute distress. No acute events overnight. Patient still complains of shortness of breath, but states improved compared to yesterday. The patient denies other cardiopulmonary complaints. 12 point review of systems was completed and returned negative aside from the above stated complaints. Objective - Vital Signs/Intake and Output Vital Signs (last 24 hours): Temp Pulse Resp BP Pulse Ox 98.1 F 72 20 174/74 H 98 10/14/16 07:55 10/14/16 07:55 10/14/16 07:55 10/14/16 07:55 10/14/16 07:55 Intake and Output: 10/14/16 10/14/16 06:59 18:59 Intake Total 200 650 Output Total 500 750 Balance -300 -100 - Medications Medications: Current Medications Albuterol/Ipratropium (Duoneb 3 Mg/0.5 Mg (3 Ml) Ud) 3 ml INH RQ6 [facility] Last Admin: 10/14/16 07:39 Dose: 3 ml Aspirin (Aspirin Chewable) 81 mg PO DAILY [facility] Last Admin: 10/13/16 09:30 Dose: 81 mg Carvedilol (Coreg) 25 mg PO BID [facility] Last Admin: 10/13/16 17:56 Dose: 25 mg Cyanocobalamin (Vitamin B12 1000 Mcg/Ml Inj) 1,000 mcg IM MWF [facility] Last Admin: 10/11/16 15:01 Dose: 1,000 mcg Dorzolamide HCl (Trusopt) 0 ml OU BID [facility] Last Admin: 10/13/16 18:01 Dose: 1 applic Gabapentin (Neurontin) 100 mg PO TID [facility] Metronidazole (Flagyl) 500 mg in 100 mls @ 100 mls/hr IVPB Q8 [facility] Last Admin: 10/14/16 05:43 Dose: 100 mls/hr Vancomycin HCl 500 mg/ Sodium (Chloride) 100 mls @ 100 mls/hr IVPB Q12H [facility] Last Admin: 10/14/16 00:39 Dose: 100 mls/hr Magnesium Sulfate/Dextrose (Magnesium Sulfate 1 Gm/100 Ml D5w) 1 gm in 100 mls @ 200 mls/hr IVPB ONCE ONE Stop: 10/14/16 09:29 Insulin Human Regular (Novolin R) 0 unit SC ACHS [facility] PRN Reason: Protocol Last Admin: 10/14/16 08:18 Dose: 6 unit Latanoprost (Xalatan Opht) 0 ml OS HS [facility] Last Admin: 10/13/16 22:43 Dose: 2.5 ml Metoclopramide HCl (Reglan) 5 mg IVP Q8 [facility] Last Admin: 10/14/16 05:43 Dose: 5 mg Morphine Sulfate (Morphine) 2 mg IVP Q4 PRN PRN Reason: Pain, severe (8-10) Pantoprazole Sodium (Protonix Ec Tab) 40 mg PO DAILY [facility] Potassium Chloride (K-Dur 20 Meq Er Tab) 20 meq PO ONCE ONE Stop: 10/14/16 12:31 Rosuvastatin Calcium (Crestor) 5 mg PO [facility] Last Admin: 10/13/16 22:39 Dose: 5 mg Timolol Maleate (Timoptic 0.5% Ophth Soln) 0 drop OU BID [facility] Last Admin: 10/13/16 18:01 Dose: 1 applic - Labs Labs: 10/14/16 07:25 10/14/16 07:25 PT 15.4 SECONDS (9.7-12.2) H 10/09/16 21:50 INR 1.3 10/09/16 21:50 APTT 29 SECONDS (21-34) 10/09/16 21:50 - Constitutional Appears: Well, Non-toxic, No Acute Distress - Head Exam Head Exam: ATRAUMATIC, NORMAL INSPECTION, NORMOCEPHALIC - Eye Exam Eye Exam: EOMI, Normal appearance. absent: Conjunctival injection, Scleral icterus Pupil Exam: absent: Irregular, Unequal - ENT Exam ENT Exam: Mucous Membranes Moist. absent: Mucous Membranes Dry - Neck Exam Neck Exam: absent: Tenderness Additional comments: No JVD - Respiratory Exam Respiratory Exam: Decreased Breath Sounds (mildly decreased breath sounds all packer), Wheezes (mild end-expiratory wheezes, most prominent in upper airway and upper lobes). absent: Accessory Muscle Use, Chest Wall Tenderness, Rales, Rhonchi, Respiratory Distress Additional comments: Mildly tachypnic, but not distressed, no overt cyanosis, no retracting or accessory muscle use - Cardiovascular Exam Cardiovascular Exam: Tachycardia, REGULAR RHYTHM, +S1, +S2. absent: Bradycardia , RRR Additional comments: Loud systolic grade V murmur most prominent right 2nd intercostal space Rapid rate regular rhythm - GI/Abdominal Exam GI & Abdominal Exam: Soft, Normal Bowel Sounds. absent: Distended, Firm - Extremities Exam Extremities Exam: absent: Calf Tenderness, Normal Inspection, Pedal Edema Additional comments: faintly palpable dorsalis pedal pulses bilaterally dark red bilateral feet and skin along LLE, bandaging along anterior LLE surface without overt bleeding/oozing through LE not cold to palpation - Neurological Exam Neurological Exam: Alert, Awake - Psychiatric Exam Psychiatric exam: Anxious - Skin Skin Exam: Dry, Intact, Normal Color (except as noted in Extremities exam), Warm Assessment and Plan (1) Shortness of breath Assessment & Plan: -likely 2/2 significant aortic stenosis vs 2/2 pulmonary etiology (former smoker ) -goal is to reduce afterload without aggressively reducing preload -Continue Lasix 20mg PO daily -may need TAVR given symptomatic -Trops 0.047, 0.092, continue to monitor EKG on 10/09/16: sinus tachy at 104, possible LA enlargement Echo on 10/10/16: read pending Status: Acute (2) HTN (hypertension) Assessment & Plan: -longstanding -given , want to reduce afterload without dramatically reducing preload -continue Lasix 20mg PO daily Case discussed with Dr. Vasquez Status: Chronic
--- NOTE | 2016-10-14 10:06 | CARD ---
APPROVED REPORT EKG Measurement Heart [id number] <Conclusion> Sinus rhythm with premature atrial complexes Otherwise normal ECG
--- NOTE | 2016-10-14 11:44 | CP.PCM.PN ---
Subjective - Date & Time of Evaluation Date of Evaluation: 10/14/16 Time of Evaluation: 11:41 - Subjective Subjective: Garcia draining clear urine. Urine C&s + for ristant enterococci. ,suggest Leave garcia discharge with leg bag follow up in my office after discharge for further eval of Elevated PSA and garcia removal Hosay Objective - Vital Signs/Intake and Output Vital Signs (last 24 hours): Temp Pulse Resp BP Pulse Ox 98.1 F 72 20 174/74 H 98 10/14/16 07:55 10/14/16 07:55 10/14/16 07:55 10/14/16 07:55 10/14/16 07:55 Intake and Output: 10/14/16 10/14/16 06:59 18:59 Intake Total 200 650 Output Total 500 750 Balance -300 -100 - Medications Medications: Current Medications Albuterol/Ipratropium (Duoneb 3 Mg/0.5 Mg (3 Ml) Ud) 3 ml INH RQ6 [facility] Last Admin: 10/14/16 07:39 Dose: 3 ml Aspirin (Aspirin Chewable) 81 mg PO DAILY [facility] Last Admin: 10/13/16 09:30 Dose: 81 mg Carvedilol (Coreg) 25 mg PO BID [facility] Last Admin: 10/13/16 17:56 Dose: 25 mg Cyanocobalamin (Vitamin B12 1000 Mcg/Ml Inj) 1,000 mcg IM MWF [facility] Last Admin: 10/11/16 15:01 Dose: 1,000 mcg Dorzolamide HCl (Trusopt) 0 ml OU BID [facility] Last Admin: 10/13/16 18:01 Dose: 1 applic Gabapentin (Neurontin) 100 mg PO TID [facility] Metronidazole (Flagyl) 500 mg in 100 mls @ 100 mls/hr IVPB Q8 [facility] Last Admin: 10/14/16 05:43 Dose: 100 mls/hr Vancomycin HCl 500 mg/ Sodium (Chloride) 100 mls @ 100 mls/hr IVPB Q12H [facility] Last Admin: 10/14/16 00:39 Dose: 100 mls/hr Insulin Human Regular (Novolin R) 0 unit SC ACHS [facility] PRN Reason: Protocol Last Admin: 10/14/16 08:18 Dose: 6 unit Latanoprost (Xalatan Opht) 0 ml OS HS [facility] Last Admin: 10/13/16 22:43 Dose: 2.5 ml Metoclopramide HCl (Reglan) 5 mg IVP Q8 [facility] Last Admin: 10/14/16 05:43 Dose: 5 mg Morphine Sulfate (Morphine) 2 mg IVP Q4 PRN PRN Reason: Pain, severe (8-10) Pantoprazole Sodium (Protonix Ec Tab) 40 mg PO DAILY [facility] Potassium Chloride (K-Dur 20 Meq Er Tab) 20 meq PO ONCE ONE Stop: 10/14/16 12:31 Rosuvastatin Calcium (Crestor) 5 mg PO HS [facility] Last Admin: 10/13/16 22:39 Dose: 5 mg Timolol Maleate (Timoptic 0.5% Ophth Soln) 0 drop OU BID [facility] Last Admin: 10/13/16 18:01 Dose: 1 applic - Labs Labs: 10/14/16 07:25 10/14/16 07:25 PT 15.4 SECONDS (9.7-12.2) H 10/09/16 21:50 INR 1.3 10/09/16 21:50 APTT 29 SECONDS (21-34) 10/09/16 21:50
[2016-10-14] MEDS: Pantoprazole 40 mg EC Tab PO SCH (12:07)
[2016-10-14] MEDS: Dorzolamide 2% Opht Sol 10ml OU SCH ×2 (12:23→19:50)
--- NOTE | 2016-10-14 16:11 | CP.PCM.PN ---
Subjective - Date & Time of Evaluation Date of Evaluation: 10/14/16 Time of Evaluation: 16:08 - Subjective Subjective: Surgery: Dr. Coley Pt seen and examined. Resting comfortably in bed. No complaints of pain. No N/V/ D. Objective - Vital Signs/Intake and Output Vital Signs (last 24 hours): Temp Pulse Resp BP Pulse Ox 98.3 F 60 20 172/74 H 96 10/14/16 15:30 10/14/16 15:30 10/14/16 15:30 10/14/16 15:30 10/14/16 15:30 Intake and Output: 10/14/16 10/14/16 06:59 18:59 Intake Total 200 650 Output Total 500 750 Balance -300 -100 - Medications Medications: Current Medications Albuterol/Ipratropium (Duoneb 3 Mg/0.5 Mg (3 Ml) Ud) 3 ml INH RQ6 [facility] Last Admin: 10/14/16 07:39 Dose: 3 ml Aspirin (Aspirin Chewable) 81 mg PO DAILY [facility] Last Admin: 10/14/16 12:07 Dose: 81 mg Carvedilol (Coreg) 25 mg PO BID [facility] Last Admin: 10/14/16 12:14 Dose: 25 mg Cyanocobalamin (Vitamin B12 1000 Mcg/Ml Inj) 1,000 mcg IM MWF [facility] Last Admin: 10/14/16 12:15 Dose: 1,000 mcg Dorzolamide HCl (Trusopt) 0 ml OU BID [facility] Last Admin: 10/14/16 12:23 Dose: 1 applic Gabapentin (Neurontin) 100 mg PO TID [facility] Hydralazine HCl (Apresoline) 10 mg IVP Q6H PRN PRN Reason: Systolic Blood Pressure Metronidazole (Flagyl) 500 mg in 100 mls @ 100 mls/hr IVPB Q8 [facility] Last Admin: 10/14/16 14:26 Dose: 100 mls/hr Vancomycin HCl 500 mg/ Sodium (Chloride) 100 mls @ 100 mls/hr IVPB Q12H [facility] Last Admin: 10/14/16 12:49 Dose: 100 mls/hr Insulin Human Regular (Novolin R) 0 unit SC ACHS [facility] PRN Reason: Protocol Last Admin: 10/14/16 12:15 Dose: 4 unit Latanoprost (Xalatan Opht) 0 ml OS HS [facility] Last Admin: 10/13/16 22:43 Dose: 2.5 ml Lisinopril (Zestril) 5 mg PO DAILY [facility] Last Admin: 10/14/16 13:06 Dose: 5 mg Metoclopramide HCl (Reglan) 5 mg IVP Q8 [facility] Last Admin: 10/14/16 14:26 Dose: 5 mg Morphine Sulfate (Morphine) 2 mg IVP Q4 PRN PRN Reason: Pain, severe (8-10) Pantoprazole Sodium (Protonix Ec Tab) 40 mg PO DAILY [facility] Last Admin: 10/14/16 12:07 Dose: 40 mg Rosuvastatin Calcium (Crestor) 5 mg PO HS [facility] Last Admin: 10/13/16 22:39 Dose: 5 mg Timolol Maleate (Timoptic 0.5% Ophth Soln) 0 drop OU BID [facility] Last Admin: 10/14/16 12:22 Dose: 1 applic - Labs Labs: 10/14/16 07:25 10/14/16 07:25 PT 15.4 SECONDS (9.7-12.2) H 10/09/16 21:50 INR 1.3 10/09/16 21:50 APTT 29 SECONDS (21-34) 10/09/16 21:50 - Constitutional Appears: Non-toxic, No Acute Distress - Head Exam Head Exam: ATRAUMATIC, NORMOCEPHALIC - Eye Exam Eye Exam: EOMI - ENT Exam ENT Exam: Mucous Membranes Moist - Neck Exam Neck Exam: Full ROM - Respiratory Exam Respiratory Exam: NORMAL BREATHING PATTERN. absent: Accessory Muscle Use, Respiratory Distress - GI/Abdominal Exam GI & Abdominal Exam: Soft. absent: Distended, Firm, Guarding, Rigid, Tenderness , Rebound - Extremities Exam Extremities Exam: absent: Calf Tenderness, Pedal Edema - Neurological Exam Neurological Exam: Alert, Awake, Oriented x3 - Psychiatric Exam Psychiatric exam: Normal Affect, Normal Mood Assessment and Plan - Assessment and Plan (Free Text) Assessment: 86M w. colon mass, s/p colonoscopy, path results negative for CA -surgery will sign off -please re-consult if needed -d/w attending Madelyn PGY2
[2016-10-14 16:54] LABS: CHLORIDE 101 mmol/L (98-107); POTASSIUM 3.2 mmol/L (3.6-5.2); SODIUM 134 mmol/L (132-148)
[2016-10-14 16:57] LABS: BLOOD UREA NITROGEN 16 mg/dL (9-20); CARBON DIOXIDE 24 mmol/L (22-30); GFR AFRICAN-AMERICAN > 60; GLUCOSE,RANDOM 211 mg/dL (75-110)
[2016-10-14 16:58] LABS: CALCIUM 7.4 mg/dl (8.6-10.4)
--- NOTE | 2016-10-14 18:44 | CP.PCM.PN ---
<Tavares Donald - Last Filed: 10/14/16 18:47> Subjective - Date & Time of Evaluation Date of Evaluation: 10/14/16 Time of Evaluation: 18:40 - Subjective Subjective: Medicine progress note. Attending: Dr. Jaffe Pt seen and examined at bedside. No acute distress. No events overnight. Colonoscopy showed internal hemorrhoids, diverticula, congested mucosa, otherwise normal. Pt has garcia catheter in. No fevers, chills, nausea, vomiting , diarrhea. Objective - Vital Signs/Intake and Output Vital Signs (last 24 hours): Temp Pulse Resp BP Pulse Ox 98.3 F 60 20 172/74 H 96 10/14/16 15:30 10/14/16 15:30 10/14/16 15:30 10/14/16 17:48 10/14/16 15:30 Intake and Output: 10/14/16 10/14/16 06:59 18:59 Intake Total 200 950 Output Total 500 750 Balance -300 200 - Medications Medications: Current Medications Albuterol/Ipratropium (Duoneb 3 Mg/0.5 Mg (3 Ml) Ud) 3 ml INH RQ6 [facility] Last Admin: 10/14/16 07:39 Dose: 3 ml Aspirin (Aspirin Chewable) 81 mg PO DAILY [facility] Last Admin: 10/14/16 12:07 Dose: 81 mg Carvedilol (Coreg) 25 mg PO BID [facility] Last Admin: 10/14/16 17:48 Dose: 25 mg Cyanocobalamin (Vitamin B12 1000 Mcg/Ml Inj) 1,000 mcg IM MWF [facility] Last Admin: 10/14/16 12:15 Dose: 1,000 mcg Dorzolamide HCl (Trusopt) 0 ml OU BID [facility] Last Admin: 10/14/16 12:23 Dose: 1 applic Gabapentin (Neurontin) 100 mg PO TID [facility] Hydralazine HCl (Apresoline) 10 mg IVP Q6H PRN PRN Reason: Systolic Blood Pressure Metronidazole (Flagyl) 500 mg in 100 mls @ 100 mls/hr IVPB Q8 [facility] Last Admin: 10/14/16 14:26 Dose: 100 mls/hr Vancomycin HCl 500 mg/ Sodium (Chloride) 100 mls @ 100 mls/hr IVPB Q12H [facility] Last Admin: 10/14/16 12:49 Dose: 100 mls/hr Insulin Human Regular (Novolin R) 0 unit SC ACHS [facility] PRN Reason: Protocol Last Admin: 10/14/16 16:36 Dose: 4 unit Latanoprost (Xalatan Opht) 0 ml OS HS [facility] Last Admin: 10/13/16 22:43 Dose: 2.5 ml Lisinopril (Zestril) 5 mg PO DAILY [facility] Last Admin: 10/14/16 13:06 Dose: 5 mg Metoclopramide HCl (Reglan) 5 mg IVP Q8 [facility] Last Admin: 10/14/16 14:26 Dose: 5 mg Morphine Sulfate (Morphine) 2 mg IVP Q4 PRN PRN Reason: Pain, severe (8-10) Pantoprazole Sodium (Protonix Ec Tab) 40 mg PO DAILY [facility] Last Admin: 10/14/16 12:07 Dose: 40 mg Rosuvastatin Calcium (Crestor) 5 mg PO HS [facility] Last Admin: 10/13/16 22:39 Dose: 5 mg Timolol Maleate (Timoptic 0.5% Oph Soln) 0 drop OU BID [facility] Last Admin: 10/14/16 12:22 Dose: 1 applic - Labs Labs: 10/14/16 07:25 10/14/16 16:38 PT 15.4 SECONDS (9.7-12.2) H 10/09/16 21:50 INR 1.3 10/09/16 21:50 APTT 29 SECONDS (21-34) 10/09/16 21:50 - Constitutional Appears: Non-toxic, No Acute Distress - Head Exam Head Exam: ATRAUMATIC, NORMAL INSPECTION, NORMOCEPHALIC - Eye Exam Eye Exam: EOMI - ENT Exam ENT Exam: Mucous Membranes Moist - Respiratory Exam Respiratory Exam: NORMAL BREATHING PATTERN. absent: Respiratory Distress - Cardiovascular Exam Cardiovascular Exam: +S1, +S2 - GI/Abdominal Exam GI & Abdominal Exam: Soft, Normal Bowel Sounds. absent: Tenderness - Extremities Exam Extremities Exam: Full ROM, Normal Inspection - Neurological Exam Neurological Exam: Alert, Awake - Psychiatric Exam Psychiatric exam: Normal Affect, Normal Mood - Skin Skin Exam: Dry, Intact, Normal Color, Warm Assessment and Plan - Assessment and Plan (Free Text) Assessment: This is an 86 yo male with past medical hx of HTN and DM presenting with abdominal pain and found to have B/L hydroureteronephrosis and enlarged irregular prostate suspicious for malignancy. 1. Prostate mass -continue morphine for pain -Dr. Ramirez consulted. recs appreciated -pt will be discharged on garcia -pt to have repeat PSA in a few days -garcia to remain in place -biopsy negative for CA 2. SHANNAN -improving -continue to monitor 3. Colitis -continue flagyl 500 iv q 8 -blood cultures negative 4. Positive urine culture -continue vanco 500 q 12 5. hx of HTN -continue asa 81 daily -coreg BID 6. hx of DM -continue gabapentin 100 tid -continue crestor daily -continue ISS 7. Pleural effusion -duonebs sebastian -pt not acutely short of breath today 8. hypokalemia -continue supplementing K and recheck tomorrow 9. ppx -reglan q 8 -protonix [address] Jaffe. <Aleyda Jaffe V - Last Filed: 10/15/16 07:51> Objective - Vital Signs/Intake and Output Vital Signs (last 24 hours): Temp Pulse Resp BP Pulse Ox 98.3 F 60 20 129/67 96 10/14/16 15:30 10/14/16 19:06 10/14/16 15:30 10/14/16 19:06 10/14/16 15:30 Intake and Output: 10/14/16 10/15/16 18:59 06:59 Intake Total 950 Output Total 750 Balance 200 - Medications Medications: Current Medications Albuterol/Ipratropium (Duoneb 3 Mg/0.5 Mg (3 Ml) Ud) 3 ml INH RQ6 [facility] Last Admin: 10/14/16 20:37 Dose: 3 ml Aspirin (Aspirin Chewable) 81 mg PO DAILY [facility] Last Admin: 10/14/16 12:07 Dose: 81 mg Carvedilol (Coreg) 25 mg PO BID [facility] Last Admin: 10/14/16 17:48 Dose: 25 mg Cyanocobalamin (Vitamin B12 1000 Mcg/Ml Inj) 1,000 mcg IM MWF [facility] Last Admin: 10/14/16 12:15 Dose: 1,000 mcg Dorzolamide HCl (Trusopt) 0 ml OU BID [facility] Last Admin: 10/14/16 19:50 Dose: 1 applic Gabapentin (Neurontin) 100 mg PO TID [facility] Hydralazine HCl (Apresoline) 10 mg IVP Q6H PRN PRN Reason: Systolic Blood Pressure Metronidazole (Flagyl) 500 mg in 100 mls @ 100 mls/hr IVPB Q8 [facility] Last Admin: 10/14/16 14:26 Dose: 100 mls/hr Vancomycin HCl 500 mg/ Sodium (Chloride) 100 mls @ 100 mls/hr IVPB Q12H [facility] Last Admin: 10/14/16 12:49 Dose: 100 mls/hr Insulin Human Regular (Novolin R) 0 unit SC ACHS [facility] PRN Reason: Protocol Last Admin: 10/14/16 16:36 Dose: 4 unit Latanoprost (Xalatan Opht) 0 ml OS HS [facility] Last Admin: 10/13/16 22:43 Dose: 2.5 ml Lisinopril (Zestril) 5 mg PO DAILY [facility] Last Admin: 10/14/16 13:06 Dose: 5 mg Metoclopramide HCl (Reglan) 5 mg IVP Q8 [facility] Last Admin: 10/14/16 14:26 Dose: 5 mg Morphine Sulfate (Morphine) 2 mg IVP Q4 PRN PRN Reason: Pain, severe (8-10) Pantoprazole Sodium (Protonix Ec Tab) 40 mg PO DAILY [facility] Last Admin: 10/14/16 12:07 Dose: 40 mg Rosuvastatin Calcium (Crestor) 5 mg PO HS [facility] Last Admin: 10/13/16 22:39 Dose: 5 mg Timolol Maleate (Timoptic 0.5% Ophth Soln) 0 drop OU BID [facility] Last Admin: 10/14/16 19:52 Dose: 1 applic - Labs Labs: 10/14/16 07:25 10/14/16 16:38 PT 15.4 SECONDS (9.7-12.2) H 10/09/16 21:50 INR 1.3 10/09/16 21:50 APTT 29 SECONDS (21-34) 10/09/16 21:50 Attending/Attestation - Attestation I have personally seen and examined this patient.: Yes I have fully participated in the care of the patient.: Yes I have reviewed all pertinent clinical information, including history, physical exam and plan: Yes Notes (Text): This is a late computer entry for 10/14/16. Patient seen, examined, and case discussed with day-time resident. Patient seen this morning during rounds approximately 11:30AM on 10/14/16 Patient is in contact isolation for VRE+ UTI. Patient very insistent regarding removal Caude cathter, discussed with urology to not remove the garcia, will need follow-up PSA, and likely follow-up outpatient. Patient currently has UTI which will also increase PSA value. Patient is on second day of IV abx for UTI, will need to monitor kidney function and white count trending upward. Patient's pathology from colonoscopy negative for cancer. Patient transferred to 5th floor for contact isolation room. Patient's potassium and magnesium repleted, and monitored and repleted today. Patient's blood pressure uncontrolled, patient started on Lisinopril 5mg PO daily and Hydralazine 10mg IV Q 6hours PRN give SBP>160. Assessment/Plan 1. Prostate mass * Urology (Dr. Ramirez) on board-->help appreciated * Heme-onc (Dr. Mishra) on board-->help appreciiated * Patient has caude garcia in place, to not be removed, discussed with urology today and to treat the urinary tract infection. will need follow-up PSA and follow-up outpatient. * CT Abdomen/Pelvis (10/09/16): Small right pleural effusion and associated consolidation. Small perihepatic ascites. High-density material within the gallbladder presumed to reflect sludge and gallstones. Asymmetric questionable wall thickening involving the nondependent portion of the gallbladder. Correlate clinically for recent outside imaging to exclude possibility of vicarious excretion of contrast. 9 mm indeterminate right adrenal gland nodule. 1.3 cm left adrenal gland nodule, likely adenoma. Moderate bilateral hydroureteronephrosis. No obstructing calculus identified. Bilateral renal cysts. Enlarged heterogeneous and markedly irregular appearance of the prostate gland worrisome for prostate cancer. Recommend correlation with PSA and HUBER. Question gastric wall thickening however the stomach is decompressed and cannot be adequately evaluated. Cecal wall and terminal ileum appear thickened ; correlate clinically for infectious or inflammatory etiologies. 4.8 cm segment of severe wall thickening/narrowing of the rectosigmoid colon worrisome for malignant neoplasm. Recommend clinical correlation and colonoscopy when clinically feasible. Scattered prominent mesenteric and retroperitoneal lymph nodes. Sclerotic region involving the T11 vertebral body and L3 vertebral body. Giving concern for possibility of prostate cancer, recommend further evaluation with nuclear medicine bone scan. Additional findings as above. 2. Acute Renal Insufficiency * Monitor BUN/Cr * Patient has caude catheter in place * Urology (Dr. Ramirez) on board-->help appreciated * off Metformin 3. Hydroureteronephrosis * Urology (Dr. Ramirez) on board help appreciated * CT Abdomen/Pelvis (10/09/16): Small right pleural effusion and associated consolidation. Small perihepatic ascites. High-density material within the gallbladder presumed to reflect sludge and gallstones. Asymmetric questionable wall thickening involving the nondependent portion of the gallbladder. Correlate clinically for recent outside imaging to exclude possibility of vicarious excretion of contrast. 9 mm indeterminate right adrenal gland nodule. 1.3 cm left adrenal gland nodule, likely adenoma. Moderate bilateral hydroureteronephrosis. No obstructing calculus identified. Bilateral renal cysts. Enlarged heterogeneous and markedly irregular appearance of the prostate gland worrisome for prostate cancer. Recommend correlation with PSA and HUBER. Question gastric wall thickening however the stomach is decompressed and cannot be adequately evaluated. Cecal wall and terminal ileum appear thickened ; correlate clinically for infectious or inflammatory etiologies. 4.8 cm segment of severe wall thickening/narrowing of the rectosigmoid colon worrisome for malignant neoplasm. Recommend clinical correlation and colonoscopy when clinically feasible. Scattered prominent mesenteric and retroperitoneal lymph nodes. Sclerotic region involving the T11 vertebral body and L3 vertebral body. Giving concern for possibility of prostate cancer, recommend further evaluation with nuclear medicine bone scan. Additional findings as above * Likely secondary to prostate mass obstruction. PSA elevated 216. * BUN/Cr Improved to 18/0.9 * Caude catheter in place 4. Urinary Tract Infection * Contact isolation * 10/11/16 Enterococcus sensitive to macrobid, tigeyclcine, and Vancomycin * On Vancomycin 500mg IV Q 12hours (Active since 10/13/16)-->f/u vancomycin trough 5. Colitis * GI (Dr. Ponce) on board-->help appreciated * Surgery (Dr. Coley) on board-->help appreciated-->signed o * Colonoscopy (10/11/16): nonbleeding internal hemorrhoids, moderate diverticulosis, no evidence of diverticular bleeding, congested mucosa of distal descending mucosa, stool in colon-->Patient to have repeat colonoscopy in 5 years. Patient to follow-up with Dr. Ponce in office in 5 weeks. Recommends Analpram HC cream 2.5% externally BID for 10 weeks. * Pathology: Fragments of colonic mucosa with mild chronic inflammation and reactive changes * CT Abdomen/Pelvis (10/09/16): Small right pleural effusion and associated consolidation. Small perihepatic ascites. High-density material within the gallbladder presumed to reflect sludge and gallstones. Asymmetric questionable wall thickening involving the nondependent portion of the gallbladder. Correlate clinically for recent outside imaging to exclude possibility of vicarious excretion of contrast. 9 mm indeterminate right adrenal gland nodule. 1.3 cm left adrenal gland nodule, likely adenoma. Moderate bilateral hydroureteronephrosis. No obstructing calculus identified. Bilateral renal cysts. Enlarged heterogeneous and markedly irregular appearance of the prostate gland worrisome for prostate cancer. Recommend correlation with PSA and HUBER. Question gastric wall thickening however the stomach is decompressed and cannot be adequately evaluated. Cecal wall and terminal ileum appear thickened ; correlate clinically for infectious or inflammatory etiologies. 4.8 cm segment of severe wall thickening/narrowing of the rectosigmoid colon worrisome for malignant neoplasm. Recommend clinical correlation and colonoscopy when clinically feasible. Scattered prominent mesenteric and retroperitoneal lymph nodes. Sclerotic region involving the T11 vertebral body and L3 vertebral body. Giving concern for possibility of prostate cancer, recommend further evaluation with nuclear medicine bone scan. Additional findings as above * Flagyl 500mg IV Q 8 hours (active from -10/14/16) 6. Hypertension * Uncontrolled * Hydralazine 10mg IV Q 6hours PRN SBP>160 * Started Lisinopril 5mg Po daily * Coreg 25mg PO bid * Timolol and Trusopt for glaucoma * monitor vital signs 7. Electrolye imbalances * Potassium repleted and monitored * Magnesium repleted 8. Diabetes Mellitus * HgA1C 6.6 * Accuchecks ACHS * ISS * Hold home metformin due to SHANNAN * Crestor 5mg PO qHS * Lisinopril 5mg Po daily 9. Anemia * Monitor H/H * Gi (Dr. Ponce) on board-->when patient is clinically stable for endoscopy * Colonoscopy (10/11/16): nonbleeding internal hemorrhoids, moderate diverticulosis, no evidence of diverticular bleeding, congested mucosa of distal descending mucosa, stool in colon-->Patient to have repeat colonoscopy in 5 years. Patient to follow-up with Dr. Ponce in office in 5 weeks. Recommends Analpram HC cream 2.5% externally BID for 10 weeks. * Pathology: Fragments of colonic mucosa with mild chronic inflammation and reactive changes 10. Pleural effusion * CT- small right pleural effusion and associated consolidation * Duonebs 3ml INH q6h [facility] * 2L NC O2 as needed 11. Leukocytosis * 10/09/16 Urine culture contaminated * Blood cultures (10/09/16): no growth after 5 days * Urine culture (10/11/16): enterococcus-->sensitive to tigeyclcine, macrobid, and vancomycin * Monitor white count, which is uptrending 12. Prophylactic measure * Aspirin 81mg Po daily * VTE contraindication secondary to anemia * palliative care on board
[2016-10-14] MEDS: Latanoprost 2.5 ml Opht Soln OS SCH (21:36)
[2016-10-15] MEDS: Albuterol-Ipratrop 3 mg / 0.5 (3 ml) UD INH SCH ×4 (01:56→20:21)
[2016-10-15] MEDS: (Novolin R) Insulin Human Regular 100 units/ml vial SC SCH ×4 (07:00→21:58)
[2016-10-15] MEDS: Pantoprazole 40 mg EC Tab PO SCH (09:59)
[2016-10-15] MEDS: Dorzolamide 2% Opht Sol 10ml OU SCH ×2 (10:01→17:49)
[2016-10-15 12:08] LABS: BASO # 0.1 K/uL (0.0-0.2); BASO % 0.5 % (0.0-2.0); EOS # 0.2 K/uL (0.0-0.7); HEMATOCRIT 29.5 % (35.0-51.0); LYMPH # 1.4 K/uL (1.0-4.3); LYMPH % 8.2 % (20.0-40.0); MEAN CELL VOLUME 82.4 fL (80.0-94.0); MEAN CORPUSCULAR HEMOGLOBIN 26.4 pg (27.0-31.0); MEAN PLATELET VOLUME 7.9 fL (7.2-11.7); MONO # 1.2 K/uL (0.0-0.8); PLATELET COUNT 371 K/uL (130-400); RED CELL DISTRIBUTION WIDTH 15.5 % (11.5-14.5); WHITE BLOOD COUNT 17.4 K/uL (4.8-10.8)
[2016-10-15 12:33] LABS: CHLORIDE 100 mmol/L (98-107); SODIUM 133 mmol/L (132-148)
[2016-10-15 12:34] LABS: POTASSIUM 3.8 mmol/L (3.6-5.2)
[2016-10-15 12:36] LABS: ALB/GLOB RATIO 0.7 (1.0-2.1); ALKALINE PHOSPHATASE 59 U/L (38-126); ALT/SGPT 32 U/L (21-72); AST/SGOT 28 U/L (17-59); BILIRUBIN,TOTAL < 0.1 mg/dL (0.2-1.3); BLOOD UREA NITROGEN 18 mg/dL (9-20); CALCIUM 7.6 mg/dl (8.6-10.4); CARBON DIOXIDE 21 mmol/L (22-30); GFR AFRICAN-AMERICAN > 60; TOTAL PROTEIN 5.6 g/dL (6.3-8.3)
[2016-10-15 12:55] LABS: BASOPHIL 1 % (0-2); NEUTROPHIL 85 % (50-75); TOTAL CELLS COUNTED 100
[2016-10-15 12:56] LABS: GIANT PLATELETS PRESENT
[2016-10-15 13:28] LABS: GLUCOSE,RANDOM 455 mg/dL (75-110)
[2016-10-15 13:50] LABS: MAGNESIUM 1.5 mg/dL (1.6-2.3)
--- NOTE | 2016-10-15 13:57 | CP.PCM.PN ---
<Tavares Donald - Last Filed: 10/15/16 13:58> Subjective - Date & Time of Evaluation Date of Evaluation: 10/15/16 Time of Evaluation: 13:55 - Subjective Subjective: Medicine progress note. Attending: Dr. Jaffe Pt seen and examined at bedside. No acute distress. WBC is trending up. Will repeat blood and urine culture. Denies fevers, chills, chest pain, sob, cough, abdominal pain, vomiting, diarrhea. Objective - Vital Signs/Intake and Output Vital Signs (last 24 hours): Temp Pulse Resp BP Pulse Ox 98.0 F 64 18 156/70 H 97 10/15/16 07:32 10/15/16 07:32 10/15/16 07:32 10/15/16 10:02 10/15/16 07:32 Intake and Output: 10/15/16 10/15/16 06:59 18:59 Intake Total 200 Output Total 1000 Balance -800 - Medications Medications: Current Medications Albuterol/Ipratropium (Duoneb 3 Mg/0.5 Mg (3 Ml) Ud) 3 ml INH RQ6 [facility] Last Admin: 10/15/16 07:27 Dose: 3 ml Aspirin (Aspirin Chewable) 81 mg PO DAILY [facility] Last Admin: 10/15/16 09:59 Dose: 81 mg Carvedilol (Coreg) 25 mg PO BID [facility] Last Admin: 10/15/16 10:02 Dose: 25 mg Cyanocobalamin (Vitamin B12 1000 Mcg/Ml Inj) 1,000 mcg IM MWF [facility] Last Admin: 10/14/16 12:15 Dose: 1,000 mcg Dorzolamide HCl (Trusopt) 0 ml OU BID [facility] Last Admin: 10/15/16 10:01 Dose: 1 applic Gabapentin (Neurontin) 100 mg PO TID [facility] Hydralazine HCl (Apresoline) 10 mg IVP Q6H PRN PRN Reason: Systolic Blood Pressure Vancomycin HCl 500 mg/ Sodium (Chloride) 100 mls @ 100 mls/hr IVPB Q12H [facility] Last Admin: 10/15/16 13:26 Dose: 100 mls/hr Insulin Human Regular (Novolin R) 0 unit SC ACHS [facility] PRN Reason: Protocol Last Admin: 10/15/16 12:41 Dose: 4 unit Latanoprost (Xalatan Opht) 0 ml OS HS [facility] Last Admin: 10/14/16 21:36 Dose: 1 ml Lisinopril (Zestril) 5 mg PO DAILY [facility] Last Admin: 10/15/16 10:08 Dose: 5 mg Metoclopramide HCl (Reglan) 5 mg IVP Q8 [facility] Last Admin: 10/15/16 05:33 Dose: 5 mg Morphine Sulfate (Morphine) 2 mg IVP Q4 PRN PRN Reason: Pain, severe (8-10) Pantoprazole Sodium (Protonix Ec Tab) 40 mg PO DAILY [facility] Last Admin: 10/15/16 09:59 Dose: 40 mg Rosuvastatin Calcium (Crestor) 5 mg PO HS [facility] Last Admin: 10/14/16 21:35 Dose: 5 mg Timolol Maleate (Timoptic 0.5% Ophth Soln) 0 drop OU BID [facility] Last Admin: 10/15/16 09:58 Dose: 1 applic - Labs Labs: 10/15/16 11:56 10/15/16 11:56 PT 15.4 SECONDS (9.7-12.2) H 10/09/16 21:50 INR 1.3 10/09/16 21:50 APTT 29 SECONDS (21-34) 10/09/16 21:50 - Constitutional Appears: Non-toxic, No Acute Distress - Head Exam Head Exam: ATRAUMATIC, NORMAL INSPECTION, NORMOCEPHALIC - Eye Exam Eye Exam: EOMI - ENT Exam ENT Exam: Mucous Membranes Moist - Neck Exam Neck Exam: Full ROM, Normal Inspection - Respiratory Exam Respiratory Exam: Clear to Ausculation Bilateral, NORMAL BREATHING PATTERN. absent: Respiratory Distress - Cardiovascular Exam Cardiovascular Exam: REGULAR RHYTHM, +S1, +S2 - GI/Abdominal Exam GI & Abdominal Exam: Soft, Normal Bowel Sounds. absent: Tenderness - Extremities Exam Extremities Exam: Full ROM, Normal Inspection - Back Exam Back Exam: NORMAL INSPECTION - Neurological Exam Neurological Exam: Alert, Awake, Oriented x3 - Psychiatric Exam Psychiatric exam: Normal Affect, Normal Mood - Skin Skin Exam: Dry, Intact, Normal Color, Warm Assessment and Plan - Assessment and Plan (Free Text) Assessment: This is an 86 yo male with past medical hx of DM, prostate resection, HTN presenting with abdominal pain x 4 days. 1. Prostate mass * Urology (Dr. Ramirez) on board-->help appreciated * Heme-onc (Dr. Mishra) on board-->help appreciated * Patient has coude catheter in place, not to be removed. will need follow-up PSA and follow-up outpatient. * CT Abdomen/Pelvis (10/09/16): Small right pleural effusion and associated consolidation. Small perihepatic ascites. High-density material within the gallbladder presumed to reflect sludge and gallstones. Asymmetric questionable wall thickening involving the nondependent portion of the gallbladder. Correlate clinically for recent outside imaging to exclude possibility of vicarious excretion of contrast. 9 mm indeterminate right adrenal gland nodule. 1.3 cm left adrenal gland nodule, likely adenoma. Moderate bilateral hydroureteronephrosis. No obstructing calculus identified. Bilateral renal cysts. Enlarged heterogeneous and markedly irregular appearance of the prostate gland worrisome for prostate cancer. Recommend correlation with PSA and HUBER. Question gastric wall thickening however the stomach is decompressed and cannot be adequately evaluated. Cecal wall and terminal ileum appear thickened ; correlate clinically for infectious or inflammatory etiologies. 4.8 cm segment of severe wall thickening/narrowing of the rectosigmoid colon worrisome for malignant neoplasm. Recommend clinical correlation and colonoscopy when clinically feasible. Scattered prominent mesenteric and retroperitoneal lymph nodes. Sclerotic region involving the T11 vertebral body and L3 vertebral body. Giving concern for possibility of prostate cancer, recommend further evaluation with nuclear medicine bone scan. Additional findings as above. * pt is s/p cystoscopy with dilation * will ultimately need prostate biopsy 2. Acute Renal Insufficiency * Monitor BUN/Cr * Patient has coude catheter in place * Urology (Dr. Ramirez) on board-->help appreciated * off Metformin 3. Hydroureteronephrosis * Urology (Dr. Ramirez) on board help appreciated * CT Abdomen/Pelvis (10/09/16): Small right pleural effusion and associated consolidation. Small perihepatic ascites. High-density material within the gallbladder presumed to reflect sludge and gallstones. Asymmetric questionable wall thickening involving the nondependent portion of the gallbladder. Correlate clinically for recent outside imaging to exclude possibility of vicarious excretion of contrast. 9 mm indeterminate right adrenal gland nodule. 1.3 cm left adrenal gland nodule, likely adenoma. Moderate bilateral hydroureteronephrosis. No obstructing calculus identified. Bilateral renal cysts. Enlarged heterogeneous and markedly irregular appearance of the prostate gland worrisome for prostate cancer. Recommend correlation with PSA and HUBER. Question gastric wall thickening however the stomach is decompressed and cannot be adequately evaluated. Cecal wall and terminal ileum appear thickened ; correlate clinically for infectious or inflammatory etiologies. 4.8 cm segment of severe wall thickening/narrowing of the rectosigmoid colon worrisome for malignant neoplasm. Recommend clinical correlation and colonoscopy when clinically feasible. Scattered prominent mesenteric and retroperitoneal lymph nodes. Sclerotic region involving the T11 vertebral body and L3 vertebral body. Giving concern for possibility of prostate cancer, recommend further evaluation with nuclear medicine bone scan. Additional findings as above * Likely secondary to prostate mass obstruction. PSA elevated 216. * BUN/Cr improved * Coude catheter in place 4. Urinary Tract Infection * Contact isolation * 10/11/16 Enterococcus sensitive to macrobid, tigecycline, and Vancomycin * On Vancomycin 500mg IV Q 12hours (day 3)-->f/u vancomycin trough 5. Colitis * GI (Dr. Ponce) on board-->help appreciated * Surgery (Dr. Coley) on board-->help appreciated-->signed off * Colonoscopy (10/11/16): nonbleeding internal hemorrhoids, moderate diverticulosis, no evidence of diverticular bleeding, congested mucosa of distal descending mucosa, stool in colon-->Patient to have repeat colonoscopy in 5 years. Patient to follow-up with Dr. Ponce in office in 5 weeks. Recommends Analpram HC cream 2.5% externally BID for 10 weeks. * Pathology: Fragments of colonic mucosa with mild chronic inflammation and reactive changes * CT Abdomen/Pelvis (10/09/16): Small right pleural effusion and associated consolidation. Small perihepatic ascites. High-density material within the gallbladder presumed to reflect sludge and gallstones. Asymmetric questionable wall thickening involving the nondependent portion of the gallbladder. Correlate clinically for recent outside imaging to exclude possibility of vicarious excretion of contrast. 9 mm indeterminate right adrenal gland nodule. 1.3 cm left adrenal gland nodule, likely adenoma. Moderate bilateral hydroureteronephrosis. No obstructing calculus identified. Bilateral renal cysts. Enlarged heterogeneous and markedly irregular appearance of the prostate gland worrisome for prostate cancer. Recommend correlation with PSA and HUBER. Question gastric wall thickening however the stomach is decompressed and cannot be adequately evaluated. Cecal wall and terminal ileum appear thickened ; correlate clinically for infectious or inflammatory etiologies. 4.8 cm segment of severe wall thickening/narrowing of the rectosigmoid colon worrisome for malignant neoplasm. Recommend clinical correlation and colonoscopy when clinically feasible. Scattered prominent mesenteric and retroperitoneal lymph nodes. Sclerotic region involving the T11 vertebral body and L3 vertebral body. Giving concern for possibility of prostate cancer, recommend further evaluation with nuclear medicine bone scan. Additional findings as above * Flagyl 500mg IV Q 8 hours (active from -10/14/16) 6. Hypertension * controlled, continue to monitor * Hydralazine 10mg IV Q 6hours PRN SBP>160 * Started Lisinopril 5mg Po daily * Coreg 25mg PO bid 7. Diabetes Mellitus * HgA1C 6.6 * Accuchecks ACHS * ISS * Hold home metformin due to SHANNAN * Crestor 5mg PO qHS * Lisinopril 5mg Po daily * asa 81 daily 9. Anemia * Monitor H/H * GI (Dr. Ponce) on board--> pt does not need endoscopy inpatient * Colonoscopy (10/11/16): nonbleeding internal hemorrhoids, moderate diverticulosis, no evidence of diverticular bleeding, congested mucosa of distal descending mucosa, stool in colon-->Patient to have repeat colonoscopy in 5 years. Patient to follow-up with Dr. Ponce in office in 5 weeks. Recommends Analpram HC cream 2.5% externally BID for 10 weeks. * Pathology: Fragments of colonic mucosa with mild chronic inflammation and reactive changes 10. Pleural effusion * CT- small right pleural effusion and associated consolidation * Duonebs 3ml INH q6h [facility] * 2L NC O2 as needed * we will repeat cxr 11. Leukocytosis * 10/09/16 Urine culture contaminated * Blood cultures (10/09/16): no growth after 5 days * Urine culture (10/11/16): enterococcus-->sensitive to tigeyclcine, macrobid, and vancomycin * Monitor white count, which is uptrending * we are repeating blood and urine cultures * ID consult. Dr. Cole. recs appreciated. * repeat CXR 12. GI/DVT * Aspirin 81mg Po daily * reglan 5 q 8 [facility] * protonix 40 daily * will add heparin discussed with Dr. Jaffe <Aleyda Jaffe V - Last Filed: 10/15/16 22:44> Objective - Vital Signs/Intake and Output Vital Signs (last 24 hours): Temp Pulse Resp BP Pulse Ox 97.9 F 67 20 165/68 H 97 10/15/16 16:56 10/15/16 16:56 10/15/16 16:56 10/15/16 17:48 10/15/16 16:56 Intake and Output: 10/15/16 10/16/16 18:59 06:59 Intake Total 770 Output Total 450 Balance 320 - Medications Medications: Current Medications Albuterol/Ipratropium (Duoneb 3 Mg/0.5 Mg (3 Ml) Ud) 3 ml INH RQ6 [facility] Last Admin: 10/15/16 20:21 Dose: Not Given Aspirin (Aspirin Chewable) 81 mg PO DAILY [facility] Last Admin: 10/15/16 09:59 Dose: 81 mg Carvedilol (Coreg) 25 mg PO BID [facility] Last Admin: 10/15/16 17:48 Dose: 25 mg Cyanocobalamin (Vitamin B12 1000 Mcg/Ml Inj) 1,000 mcg IM MWF [facility] Last Admin: 10/14/16 12:15 Dose: 1,000 mcg Dorzolamide HCl (Trusopt) 0 ml OU BID [facility] Last Admin: 10/15/16 17:49 Dose: 1 applic Gabapentin (Neurontin) 100 mg PO TID [facility] Heparin Sodium (Porcine) (Heparin) 5,000 units SC 12 [facility] Hydralazine HCl (Apresoline) 10 mg IVP Q6H PRN PRN Reason: Systolic Blood Pressure Tigecycline 50 mg/ Sodium (Chloride) 100 mls @ 100 mls/hr IVPB Q12H [facility] Magnesium Sulfate/Dextrose (Magnesium Sulfate 1 Gm/100 Ml D5w) 1 gm in 100 mls @ 300 mls/hr IVPB Q30M [facility] Stop: 10/15/16 23:34 Insulin Glargine (Lantus) 10 unit SC HS [facility] Last Admin: 10/15/16 21:54 Dose: 10 u Insulin Human Regular (Novolin R) 0 unit SC ACHS [facility] PRN Reason: Protocol Last Admin: 10/15/16 21:58 Dose: Not Given Latanoprost (Xalatan Opht) 0 ml OS HS [facility] Last Admin: 10/15/16 21:57 Dose: 1 ml Lisinopril (Zestril) 10 mg PO DAILY [facility] Metoclopramide HCl (Reglan) 5 mg IVP Q8 [facility] Last Admin: 10/15/16 21:51 Dose: 5 mg Pantoprazole Sodium (Protonix Ec Tab) 40 mg PO DAILY [facility] Last Admin: 10/15/16 09:59 Dose: 40 mg Rosuvastatin Calcium (Crestor) 5 mg PO HS [facility] Last Admin: 10/15/16 21:53 Dose: 5 mg Saccharomyces Boulardii (Florastor) 250 mg PO BID [facility] Timolol Maleate (Timoptic 0.5% Ophth Soln) 0 drop OU BID [facility] Last Admin: 10/15/16 17:49 Dose: 1 applic - Labs Labs: 10/15/16 11:56 10/15/16 11:56 PT 15.4 SECONDS (9.7-12.2) H 10/09/16 21:50 INR 1.3 10/09/16 21:50 APTT 29 SECONDS (21-34) 10/09/16 21:50 Attending/Attestation - Attestation I have personally seen and examined this patient.: Yes I have fully participated in the care of the patient.: Yes I have reviewed all pertinent clinical information, including history, physical exam and plan: Yes Notes (Text): Patient seen, examined, and case discussed with day-time resident. Patient seen this morning during rounds. Patient is in contact isolation for VRE+ UTI. White count uptrending today. Ordered for repeat blood cultures, urine culture, chest xray, and infectious disease. Patient is currently on Day 3 of IV for VRE UTI. Electrolytes repleted Patient's blood pressure uncontrolled, patient started on Lisinopril 10mg PO daily. Patient has uncontrolled sugar, started on Lantus 10 units subhs, and insulin sliding scale. Difficult to discern if white count is due to infection vs related to possible malignancy. Patient seen at bedside, sitting upright, pleasant, eating lunch. Assessment/Plan 1. Prostate mass * Urology (Dr. Ramirez) on board-->help appreciated * Heme-onc (Dr. Mishra) on board-->help appreciiated * Patient has caude garcia in place, to not be removed, discussed with urology today and to treat the urinary tract infection. will need follow-up PSA and follow-up outpatient. * CT Abdomen/Pelvis (10/09/16): Small right pleural effusion and associated consolidation. Small perihepatic ascites. High-density material within the gallbladder presumed to reflect sludge and gallstones. Asymmetric questionable wall thickening involving the nondependent portion of the gallbladder. Correlate clinically for recent outside imaging to exclude possibility of vicarious excretion of contrast. 9 mm indeterminate right adrenal gland nodule. 1.3 cm left adrenal gland nodule, likely adenoma. Moderate bilateral hydroureteronephrosis. No obstructing calculus identified. Bilateral renal cysts. Enlarged heterogeneous and markedly irregular appearance of the prostate gland worrisome for prostate cancer. Recommend correlation with PSA and HUBER. Question gastric wall thickening however the stomach is decompressed and cannot be adequately evaluated. Cecal wall and terminal ileum appear thickened ; correlate clinically for infectious or inflammatory etiologies. 4.8 cm segment of severe wall thickening/narrowing of the rectosigmoid colon worrisome for malignant neoplasm. Recommend clinical correlation and colonoscopy when clinically feasible. Scattered prominent mesenteric and retroperitoneal lymph nodes. Sclerotic region involving the T11 vertebral body and L3 vertebral body. Giving concern for possibility of prostate cancer, recommend further evaluation with nuclear medicine bone scan. Additional findings as above. 2. Acute Renal Insufficiency * Monitor BUN/Cr * Patient has caude catheter in place * Urology (Dr. Ramirez) on board-->help appreciated * off Metformin 3. Hydroureteronephrosis * Urology (Dr. Ramirez) on board help appreciated * CT Abdomen/Pelvis (10/09/16): Small right pleural effusion and associated consolidation. Small perihepatic ascites. High-density material within the gallbladder presumed to reflect sludge and gallstones. Asymmetric questionable wall thickening involving the nondependent portion of the gallbladder. Correlate clinically for recent outside imaging to exclude possibility of vicarious excretion of contrast. 9 mm indeterminate right adrenal gland nodule. 1.3 cm left adrenal gland nodule, likely adenoma. Moderate bilateral hydroureteronephrosis. No obstructing calculus identified. Bilateral renal cysts. Enlarged heterogeneous and markedly irregular appearance of the prostate gland worrisome for prostate cancer. Recommend correlation with PSA and HUBER. Question gastric wall thickening however the stomach is decompressed and cannot be adequately evaluated. Cecal wall and terminal ileum appear thickened ; correlate clinically for infectious or inflammatory etiologies. 4.8 cm segment of severe wall thickening/narrowing of the rectosigmoid colon worrisome for malignant neoplasm. Recommend clinical correlation and colonoscopy when clinically feasible. Scattered prominent mesenteric and retroperitoneal lymph nodes. Sclerotic region involving the T11 vertebral body and L3 vertebral body. Giving concern for possibility of prostate cancer, recommend further evaluation with nuclear medicine bone scan. Additional findings as above * Likely secondary to prostate mass obstruction. PSA elevated 216. * BUN/Cr Improved to 18/0.9 * Caude catheter in place 4. Urinary Tract Infection * Contact isolation * 10/11/16 Enterococcus sensitive to macrobid, tigeyclcine, and Vancomycin * d/c Vancomcyin per ID * Switched to Tigecycline per infectious disease 5. Colitis * GI (Dr. Ponce) on board-->help appreciated * Surgery (Dr. Coley) on board-->help appreciated-->signed o * Colonoscopy (10/11/16): nonbleeding internal hemorrhoids, moderate diverticulosis, no evidence of diverticular bleeding, congested mucosa of distal descending mucosa, stool in colon-->Patient to have repeat colonoscopy in 5 years. Patient to follow-up with Dr. Ponce in office in 5 weeks. Recommends Analpram HC cream 2.5% externally BID for 10 weeks. * Pathology: Fragments of colonic mucosa with mild chronic inflammation and reactive changes * CT Abdomen/Pelvis (10/09/16): Small right pleural effusion and associated consolidation. Small perihepatic ascites. High-density material within the gallbladder presumed to reflect sludge and gallstones. Asymmetric questionable wall thickening involving the nondependent portion of the gallbladder. Correlate clinically for recent outside imaging to exclude possibility of vicarious excretion of contrast. 9 mm indeterminate right adrenal gland nodule. 1.3 cm left adrenal gland nodule, likely adenoma. Moderate bilateral hydroureteronephrosis. No obstructing calculus identified. Bilateral renal cysts. Enlarged heterogeneous and markedly irregular appearance of the prostate gland worrisome for prostate cancer. Recommend correlation with PSA and HUBER. Question gastric wall thickening however the stomach is decompressed and cannot be adequately evaluated. Cecal wall and terminal ileum appear thickened ; correlate clinically for infectious or inflammatory etiologies. 4.8 cm segment of severe wall thickening/narrowing of the rectosigmoid colon worrisome for malignant neoplasm. Recommend clinical correlation and colonoscopy when clinically feasible. Scattered prominent mesenteric and retroperitoneal lymph nodes. Sclerotic region involving the T11 vertebral body and L3 vertebral body. Giving concern for possibility of prostate cancer, recommend further evaluation with nuclear medicine bone scan. Additional findings as above * Flagyl 500mg IV Q 8 hours (active from -10/14/16) * Discussed with GI, d/c antibiotics; will need endoscopy when clinically stable 6. Hypertension * Uncontrolled * Hydralazine 10mg IV Q 6hours PRN SBP>160 * Started Lisinopril 10mg Po daily * Coreg 25mg PO bid * Timolol and Trusopt for glaucoma * monitor vital signs 7. Electrolye imbalances * Potassium repleted and monitored * Magnesium repleted 8. Diabetes Mellitus * HgA1C 6.6 * Accuchecks ACHS * ISS * Hold home metformin due to SHANNAN * Crestor 5mg PO qHS * Lisinopril 10mg Po daily * Lantus 10 units subqHS 9. Anemia * Monitor H/H * Gi (Dr. Ponce) on board-->when patient is clinically stable for endoscopy * Colonoscopy (10/11/16): nonbleeding internal hemorrhoids, moderate diverticulosis, no evidence of diverticular bleeding, congested mucosa of distal descending mucosa, stool in colon-->Patient to have repeat colonoscopy in 5 years. Patient to follow-up with Dr. Ponce in office in 5 weeks. Recommends Analpram HC cream 2.5% externally BID for 10 weeks. * Pathology: Fragments of colonic mucosa with mild chronic inflammation and reactive changes 10. Pleural effusion * CT- small right pleural effusion and associated consolidation * Duonebs 3ml INH q6h [facility] * 2L NC O2 as needed 11. Leukocytosis * 10/09/16 Urine culture contaminated * Blood cultures (10/09/16): no growth after 5 days * Urine culture (10/11/16): enterococcus-->sensitive to tigeyclcine, macrobid, and vancomycin * Monitor white count, which is uptrending * Infectious disease (Dr. Cole) on board * repeat blood, urine, and chest xray today 12. Prophylactic measure * Aspirin 81mg Po daily * VTE contraindication secondary to anemia * palliative care on board
--- NOTE | 2016-10-15 15:19 | RAD ---
HISTORY: leukocytosis COMPARISON: 09/09/2016 FINDINGS: LUNGS: James is limited due to low inspiration, portable technique and slightly rotated study. The chin also is partly obscuring the right lung apex. The exam is projected limited regarding the right lung base. Pathology here is not excluded PLEURA: No significant pleural effusion identified, no pneumothorax apparent. CARDIOVASCULAR: Minimal pulmonary venous congestion probable and possibly chronic OSSEOUS STRUCTURES: Osteoporosis. Fracture risk high VISUALIZED UPPER ABDOMEN: Normal. OTHER FINDINGS: None. IMPRESSION: Limited exam especially regarding right lung base. Consider repeat chest x-ray patient can't cooperate
[2016-10-15] MEDS: (Lantus) Insulin Glargine, Recombinant SC SCH (21:54)
[2016-10-15] MEDS: Latanoprost 2.5 ml Opht Soln OS SCH (21:57)
--- NOTE | 2016-10-15 21:57 | CP.PCM.CON ---
History of Present Illness - History of Present Illness History of Present Illness: dictated Past Patient History - Past Medical History & Family History Past Medical History?: Yes - Past Social History Smoking Status: Never Smoked - CARDIAC Hx Hypertension: Yes - PULMONARY Hx Respiratory Disorders: No - NEUROLOGICAL Hx Neurological Disorder: No - HEENT Hx HEENT Problems: No - RENAL Hx Chronic Kidney Disease: No - ENDOCRINE/METABOLIC Hx Diabetes Mellitus Type 2: Yes - HEMATOLOGICAL/ONCOLOGICAL Hx Blood Disorders: No - MUSCULOSKELETAL/RHEUMATOLOGICAL Hx Falls: No Hx Osteoarthritis: Yes - GASTROINTESTINAL Hx Gastrointestinal Disorders: No - GENITOURINARY/GYNECOLOGICAL Hx Genitourinary Disorders: No - PSYCHIATRIC Hx Substance Use: No - SURGICAL HISTORY Hx Surgeries: Yes Other/Comment: Prostate - ANESTHESIA Hx Anesthesia: No Hx Anesthesia Reactions: No Hx Malignant Hyperthermia: No Has any member of the family had a problem w/ anesthesia?: No Meds Allergies/Adverse Reactions: Allergies Allergy/AdvReac Type Severity Reaction Status Date / Time No Known Allergies Allergy Verified 10/09/16 11:38 - Medications Medications: Current Medications Albuterol/Ipratropium (Duoneb 3 Mg/0.5 Mg (3 Ml) Ud) 3 ml INH RQ6 [facility] Last Admin: 10/15/16 20:21 Dose: Not Given Aspirin (Aspirin Chewable) 81 mg PO DAILY [facility] Last Admin: 10/15/16 09:59 Dose: 81 mg Carvedilol (Coreg) 25 mg PO BID [facility] Last Admin: 10/15/16 17:48 Dose: 25 mg Cyanocobalamin (Vitamin B12 1000 Mcg/Ml Inj) 1,000 mcg IM MWF [facility] Last Admin: 10/14/16 12:15 Dose: 1,000 mcg Dorzolamide HCl (Trusopt) 0 ml OU BID [facility] Last Admin: 10/15/16 17:49 Dose: 1 applic Gabapentin (Neurontin) 100 mg PO TID [facility] Heparin Sodium (Porcine) (Heparin) 5,000 units SC 12 [facility] Hydralazine HCl (Apresoline) 10 mg IVP Q6H PRN PRN Reason: Systolic Blood Pressure Tigecycline 50 mg/ Sodium (Chloride) 100 mls @ 100 mls/hr IVPB Q12H [facility] Insulin Glargine (Lantus) 10 unit SC HS [facility] Insulin Human Regular (Novolin R) 0 unit SC ACHS [facility] PRN Reason: Protocol Last Admin: 10/15/16 16:45 Dose: 4 unit Latanoprost (Xalatan Opht) 0 ml OS HS [facility] Last Admin: 10/14/16 21:36 Dose: 1 ml Lisinopril (Zestril) 5 mg PO DAILY [facility] Last Admin: 10/15/16 10:08 Dose: 5 mg Metoclopramide HCl (Reglan) 5 mg IVP Q8 [facility] Last Admin: 10/15/16 14:05 Dose: 5 mg Morphine Sulfate (Morphine) 2 mg IVP Q4 PRN PRN Reason: Pain, severe (8-10) Pantoprazole Sodium (Protonix Ec Tab) 40 mg PO DAILY [facility] Last Admin: 10/15/16 09:59 Dose: 40 mg Rosuvastatin Calcium (Crestor) 5 mg PO HS [facility] Last Admin: 10/14/16 21:35 Dose: 5 mg Timolol Maleate (Timoptic 0.5% Ophth Soln) 0 drop OU BID [facility] Last Admin: 10/15/16 17:49 Dose: 1 applic Results - Vital Signs Recent Vital Signs: Last Vital Signs Temp 97.9 F 10/15/16 16:56 Pulse 67 10/15/16 16:56 Resp 20 10/15/16 16:56 BP 165/68 H 10/15/16 17:48 Pulse Ox 97 10/15/16 16:56 - Labs Result Diagrams: 10/15/16 11:56 10/15/16 11:56 Labs: Laboratory Results - last 24 hr 10/15/16 10/15/16 10/15/16 07:33 11:56 11:56 WBC 17.4 H RBC 3.58 L Hgb 9.4 L Hct 29.5 L MCV 82.4 MCH 26.4 L MCHC 32.0 L RDW 15.5 H Plt Count 371 MPV 7.9 Neut % (Auto) 83.3 H Lymph % (Auto) 8.2 L Hardin % (Auto) 7.0 Eos % (Auto) 1.0 Baso % (Auto) 0.5 Neut # 14.5 H Lymph # 1.4 Hardin # 1.2 H Eos # 0.2 Baso # 0.1 Neutrophils % (Manual) 85 H Lymphocytes % (Manual) 11 L Monocytes % (Manual) 3 Basophils % (Manual) 1 Platelet Estimate Normal Giant Platelets Present Hypochromasia (manual) Slight Poikilocytosis (manual Slight Anisocytosis (manual) Slight Ovalocytes Slight Shalom Cells Slight Sodium 133 Potassium 3.8 Chloride 100 Carbon Dioxide 21 L Anion Gap 16 BUN 18 Creatinine 1.1 Est GFR ( Amer) > 60 Est GFR (Non-Af Amer) > 60 POC Glucose (mg/dL) 290 H Random Glucose 455 H* D Calcium 7.6 L Magnesium 1.5 L Total Bilirubin < 0.1 L AST 28 ALT 32 Alkaline Phosphatase 59 Total Protein 5.6 L Albumin 2.3 L Globulin 3.3 Albumin/Globulin Ratio 0.7 L 10/15/16 10/15/16 10/15/16 12:19 13:58 16:35 WBC RBC Hgb Hct MCV MCH MCHC RDW Plt Count MPV Neut % (Auto) Lymph % (Auto) Hardin % (Auto) Eos % (Auto) Baso % (Auto) Neut # Lymph # Hardin # Eos # Baso # Neutrophils % (Manual) Lymphocytes % (Manual) Monocytes % (Manual) Basophils % (Manual) Platelet Estimate Giant Platelets Hypochromasia (manual) Poikilocytosis (manual Anisocytosis (manual) Ovalocytes Shalom Cells Sodium Potassium Chloride Carbon Dioxide Anion Gap BUN Creatinine Est GFR ( Amer) Est GFR (Non-Af Amer) POC Glucose (mg/dL) 414 H* 376 H 283 H Random Glucose Calcium Magnesium Total Bilirubin AST ALT Alkaline Phosphatase Total Protein Albumin Globulin Albumin/Globulin Ratio 10/15/16 21:18 WBC RBC Hgb Hct MCV MCH MCHC RDW Plt Count MPV Neut % (Auto) Lymph % (Auto) Hardin % (Auto) Eos % (Auto) Baso % (Auto) Neut # Lymph # Hardin # Eos # Baso # Neutrophils % (Manual) Lymphocytes % (Manual) Monocytes % (Manual) Basophils % (Manual) Platelet Estimate Giant Platelets Hypochromasia (manual) Poikilocytosis (manual Anisocytosis (manual) Ovalocytes Johnson Cells Sodium Potassium Chloride Carbon Dioxide Anion Gap BUN Creatinine Est GFR ( Amer) Est GFR (Non-Af Amer) POC Glucose (mg/dL) 238 H Random Glucose Calcium Magnesium Total Bilirubin AST ALT Alkaline Phosphatase Total Protein Albumin Globulin Albumin/Globulin Ratio
[2016-10-15] MEDS: Magnesium Sulfate 1 gm in D5W 1 GM/100 ML BAG IVPB SCH (22:52)
[2016-10-16] MEDS: Magnesium Sulfate 1 gm in D5W 1 GM/100 ML BAG IVPB SCH ×4 (00:07→13:37)
[2016-10-16] MEDS: Albuterol-Ipratrop 3 mg / 0.5 (3 ml) UD INH SCH ×3 (02:30→19:40)
--- NOTE | 2016-10-16 04:22 | CON ---
DATE: 10/15/2016 HISTORY OF PRESENT ILLNESS: The patient is an 86-year-old male. He has history of hypertension, miri harrington, came in with abdominal pain. He was admitted on 10/09/16. I am asked to see him because his white count has been elevated, and he came in with 4 days of abdominal pain and was constant pain. Eda phelps was also constipated. He had history of prostatectomy in 1995, and he never followed after the [facility], and he does not know whether he had prostate cancer. He did not have any fever or chills, came in with diabetes mellitus and hypertension. PAST SURGICAL HISTORY: Significant for hernia repair and prostatectomy. FAMILY HISTORY: Negative for any cancer. SOCIAL HISTORY: He is a former smoker. No ETOH abuse. No drug abuse. He lives at home with his wi fe and he was feeling a lot better today. He denied any complaints. He had a Nair catheter; however, he is supposed to go with it home. REVIEW OF SYSTEMS: When he came in, was mostly negative. No chest pain. No shortness of breath. No cough. No cold. No fever. No chills. No blurred vision. He did come in with abdominal pain and constipation. He a lso had bladder distention. He had no hematuria. No psych problems. Did come in with fatigue and p alpitations. MEDICATIONS: He was getting vancomycin, albuterol, aspirin, Coreg, cyanocobalamin, Trusopt, Neuronti n, heparin subQ, Apresoline, Lantus, Xalatan, Zestril, magnesium sulfate, pantoprazole, Crestor, Enriqueta astor, eyedrops. He was seen by Dr. Ramirez and is placed on a Nair catheter as his prostate may be enlarged. PHYSICAL EXAMINATION: VITAL SIGNS: His T-max was 97.9, blood pressure 153/ , respirations 20, heart rate is 67. HEENT: Head is atraumatic, normocephalic. Pupils are reacting to light. Throat: No congestion. N o thrush seen. NECK: Supple. JANE is flat. LUNGS: Clear. No crackles or rales present. HEART: S1, S2 regular. ABDOMEN: Soft, nontender. No guarding. No rigidity present. Has an indwelling Nair catheter. EXTREMITIES: No edema, clubbing, or cyanosis. LABORATORY DATA: White count is 17.4, hemoglobin 9.4, hematocrit 29.5, platelet count is 371. Chemi stry showed sodium , potassium 3.8, chloride 100, CO2 is 21, anion gap is 16, BUN is 18, creati nine is 1.1. The sugar is 238. At this time he does have some mild electrolyte imbalance, low prote in. Micro-kaufman: His urine culture had shown Enterococcus faecalis and it was vancomycin sensitive a nd Tygacil sensitive, and since his white count is going up, I decided to put him on Tygacil to cover for more resistant organisms, also covering for Gram-negatives, as well as Gram-positives at this ti me. His chest x-ray was done because of the leukocytosis and showed exam limited regarding rig ht lung base, consider repeating CAT scan if the patient can cooperate. The patient did not cooperat e well, and septic workup was also ordered. We will follow. We will continue with that Tygacil for now. Yvonne Cole MD cc: [id number] TT: 10/16/2016 04:21:27 Confirmation # [id number] Dictation # [id number] tn
[2016-10-16] MEDS ORDERED: Tigecycline 50 MG in Dextrose 5% In Water 100 ML IVPB SCH (07:00)
[2016-10-16 09:22] LABS: BASO # 0.1 K/uL (0.0-0.2); BASO % 0.5 % (0.0-2.0); EOS # 0.5 K/uL (0.0-0.7); HEMATOCRIT 32.1 % (35.0-51.0); LYMPH # 1.8 K/uL (1.0-4.3); LYMPH % 7.4 % (20.0-40.0); MEAN CELL VOLUME 81.6 fL (80.0-94.0); MEAN CORPUSCULAR HEMOGLOBIN 26.4 pg (27.0-31.0); MEAN CORPUSCULAR HGB CONC 32.3 g/dL (33.0-37.0); MEAN PLATELET VOLUME 7.5 fL (7.2-11.7); MONO # 1.7 K/uL (0.0-0.8); MONO % 6.8 % (0.0-10.0); PLATELET COUNT 428 K/uL (130-400); RED CELL DISTRIBUTION WIDTH 15.5 % (11.5-14.5); WHITE BLOOD COUNT 24.7 K/uL (4.8-10.8)
--- NOTE | 2016-10-16 10:06 | RAD ---
HISTORY: leukocytosis COMPARISON: Comparison is made to 10/15/2016 FINDINGS: LUNGS: No significant interval change in the lungs noted since the previous exam. PLEURA: No significant pleural effusion identified, no pneumothorax apparent. CARDIOVASCULAR: Normal. OSSEOUS STRUCTURES: No significant abnormalities. VISUALIZED UPPER ABDOMEN: Normal. OTHER FINDINGS: None. IMPRESSION: No significant interval change since the previous study. Prominent lung markings are again seen.
[2016-10-16 10:07] LABS: CHLORIDE 101 mmol/L (98-107); EOSINOPHIL 1 % (0-4); NEUTROPHIL 86 % (50-75); TOTAL CELLS COUNTED 100
[2016-10-16 10:08] LABS: POTASSIUM 3.3 mmol/L (3.6-5.2); SODIUM 134 mmol/L (132-148)
[2016-10-16 10:10] LABS: GFR AFRICAN-AMERICAN > 60
[2016-10-16 10:11] LABS: ALB/GLOB RATIO 0.8 (1.0-2.1); ALKALINE PHOSPHATASE 69 U/L (38-126); ALT/SGPT 24 U/L (21-72); AST/SGOT 19 U/L (17-59); BILIRUBIN,TOTAL 0.6 mg/dL (0.2-1.3); BLOOD UREA NITROGEN 22 mg/dL (9-20); CARBON DIOXIDE 25 mmol/L (22-30); GLUCOSE,RANDOM 179 mg/dL (75-110); PHOSPHOROUS 2.9 mg/dL (2.5-4.5); TOTAL PROTEIN 6.6 g/dL (6.3-8.3)
[2016-10-16 10:12] LABS: CALCIUM 7.5 mg/dl (8.6-10.4); MAGNESIUM 1.5 mg/dL (1.6-2.3)
[2016-10-16] MEDS: (Novolin R) Insulin Human Regular 100 units/ml vial SC SCH ×4 (10:17→21:35)
[2016-10-16] MEDS: Pantoprazole 40 mg EC Tab PO SCH (10:18)
[2016-10-16] MEDS ORDERED: Potassium Chloride 20 mEq ER Tab PO ONE (10:20)
[2016-10-16] MEDS: Dorzolamide 2% Opht Sol 10ml OU SCH ×2 (10:21→17:28)
[2016-10-16] MEDS: Saccharomyces Boulardi 250 mg Cap PO SCH ×2 (10:30→17:31)
--- NOTE | 2016-10-16 14:17 | CP.PCM.PN ---
Subjective - Date & Time of Evaluation Date of Evaluation: 10/16/16 Time of Evaluation: 12:00 - Subjective Subjective: Patient denies any acute symptoms. I was called by the resident to discuss the Proxy and Code status with the patient one more time. Objective - Vital Signs/Intake and Output Vital Signs (last 24 hours): Temp Pulse Resp BP Pulse Ox 98 F 81 20 147/58 L 98 10/16/16 10:15 10/16/16 10:15 10/16/16 10:15 10/16/16 10:19 10/16/16 10:15 Intake and Output: 10/16/16 10/16/16 06:59 18:59 Intake Total 100 Output Total 400 Balance -300 - Medications Medications: Current Medications Albuterol/Ipratropium (Duoneb 3 Mg/0.5 Mg (3 Ml) Ud) 3 ml INH RQ6 [facility] Last Admin: 10/16/16 08:06 Dose: 3 ml Aspirin (Aspirin Chewable) 81 mg PO DAILY [facility] Last Admin: 10/16/16 10:19 Dose: 81 mg Carvedilol (Coreg) 25 mg PO BID [facility] Last Admin: 10/16/16 10:19 Dose: 25 mg Cyanocobalamin (Vitamin B12 1000 Mcg/Ml Inj) 1,000 mcg IM MWF [facility] Last Admin: 10/16/16 10:20 Dose: 1,000 mcg Dorzolamide HCl (Trusopt) 0 ml OU BID [facility] Last Admin: 10/16/16 10:21 Dose: 1 applic Gabapentin (Neurontin) 100 mg PO TID [facility] Heparin Sodium (Porcine) (Heparin) 5,000 units SC 12 [facility] Last Admin: 10/16/16 13:37 Dose: 5,000 units Hydralazine HCl (Apresoline) 10 mg IVP Q6H PRN PRN Reason: Systolic Blood Pressure Tigecycline 50 mg/ Sodium (Chloride) 100 mls @ 100 mls/hr IVPB Q12H [facility] Last Admin: 10/16/16 09:46 Dose: Not Given Insulin Glargine (Lantus) 10 unit SC HS [facility] Last Admin: 10/15/16 21:54 Dose: 10 u Insulin Human Regular (Novolin R) 0 unit SC ACHS [facility] PRN Reason: Protocol Last Admin: 10/16/16 13:38 Dose: 4 unit Latanoprost (Xalatan Opht) 0 ml OS HS [facility] Last Admin: 10/15/16 21:57 Dose: 1 ml Lisinopril (Zestril) 10 mg PO DAILY [facility] Last Admin: 10/16/16 10:18 Dose: 10 mg Metoclopramide HCl (Reglan) 5 mg IVP Q8 [facility] Last Admin: 10/16/16 13:38 Dose: 5 mg Pantoprazole Sodium (Protonix Ec Tab) 40 mg PO DAILY [facility] Last Admin: 10/16/16 10:18 Dose: 40 mg Rosuvastatin Calcium (Crestor) 5 mg PO HS [facility] Last Admin: 10/15/16 21:53 Dose: 5 mg Saccharomyces Boulardii (Florastor) 250 mg PO BID [facility] Last Admin: 10/16/16 10:30 Dose: 250 mg Timolol Maleate (Timoptic 0.5% Ophth Soln) 0 drop OU BID [facility] Last Admin: 10/16/16 10:20 Dose: 1 applic - Labs Labs: 10/16/16 09:06 10/16/16 09:06 PT 15.4 SECONDS (9.7-12.2) H 10/09/16 21:50 INR 1.3 10/09/16 21:50 APTT 29 SECONDS (21-34) 10/09/16 21:50 - Constitutional Appears: Chronically Ill - Head Exam Head Exam: ATRAUMATIC, NORMAL INSPECTION, NORMOCEPHALIC - Eye Exam Eye Exam: EOMI, Normal appearance, PERRL Pupil Exam: NORMAL ACCOMODATION, PERRL - ENT Exam ENT Exam: Mucous Membranes Dry, Normal Exam - Neck Exam Neck Exam: Full ROM, Normal Inspection - Respiratory Exam Respiratory Exam: Decreased Breath Sounds, NORMAL BREATHING PATTERN - Cardiovascular Exam Cardiovascular Exam: REGULAR RHYTHM, +S1, +S2 - GI/Abdominal Exam GI & Abdominal Exam: Hypoactive Bowel Sounds - Rectal Exam Rectal Exam: Deferred - Exam Additional comments: Nair catheter - Extremities Exam Extremities Exam: Normal Capillary Refill, Normal Inspection - Back Exam Back Exam: NORMAL INSPECTION - Neurological Exam Neurological Exam: Alert, Awake, Oriented x3 Neuro motor strength exam: Left Upper Extremity: 2/1, Right Upper Extremity: 2/1 , Left Lower Extremity: 2/1, Right Lower Extremity: 2/1 - Psychiatric Exam Psychiatric exam: Normal Affect, Normal Mood - Skin Skin Exam: Pallor Assessment and Plan - Assessment and Plan (Free Text) Assessment: Patient was examined in bed in no acute distress. Patient looks ill, skin is pale, oral mucousa dry. 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 Tygacil IV on board. Nair is in place, urine clear, patient denies suprapubic pain. Abdomen is soft, last BM yesterday, patient denied pain at present. Colon Bx was significant for chronic inflammation. The CXR is significant for lung markings seen again. I discussed this findings with patient and elicited his thoughts regarding the plan of care. Patient understands that his health had declined over the years . He states feeling weak and in need for assistance with ADLs. Patient relies on help at home from his friend Benito Goyal ), who has been a family friend for long time. Patient states that only one of his two daughters occasionally gets in touch with him. I further questioned the end of life care goals and what were his expectations. Patient stated being willing to go all aggressive procedures needed to support his life regardless of quality of life. Patient also stated that if he loses decision making capacity, he would like his friend Benito to be his surrogate decision maker. I spoke with Mr. Oliver over the phone and he agreed. Patient signed the POLST asking for Full tretement and named his friend Benito Goyal to be his surrogate decision maker. Impression * Patient looks weak and chronically ill * Patient denies abdominal pain * UTI, Nair cath in place * Patient needs moderate assistance with ADLs * Patient would want Full treatment including all aggressive interventions to support his life Suggestion * Full Code * Benito Cerrato made surrogate decision maker by the patient ( [phone]) * POLST on chart
--- NOTE | 2016-10-16 16:17 | CP.PCM.PN ---
<Tavares Donald - Last Filed: 10/16/16 16:18> Subjective - Date & Time of Evaluation Date of Evaluation: 10/16/16 Time of Evaluation: 16:15 - Subjective Subjective: Medicine progress note. Attending: Dr. Jaffe Pt seen and examined at bedside. No acute distress. No events overnight. White count trending up. Repeat CXR and cultures pending. Denies fevers, chills, vomiting, diarrhea, cough. Objective - Vital Signs/Intake and Output Vital Signs (last 24 hours): Temp Pulse Resp BP Pulse Ox 98 F 81 20 147/58 L 98 10/16/16 10:15 10/16/16 10:15 10/16/16 10:15 10/16/16 10:19 10/16/16 10:15 Intake and Output: 10/16/16 10/16/16 06:59 18:59 Intake Total 100 Output Total 400 700 Balance -300 -700 - Medications Medications: Current Medications Albuterol/Ipratropium (Duoneb 3 Mg/0.5 Mg (3 Ml) Ud) 3 ml INH RQ6 [facility] Last Admin: 10/16/16 08:06 Dose: 3 ml Aspirin (Aspirin Chewable) 81 mg PO DAILY [facility] Last Admin: 10/16/16 10:19 Dose: 81 mg Carvedilol (Coreg) 25 mg PO BID [facility] Last Admin: 10/16/16 10:19 Dose: 25 mg Cyanocobalamin (Vitamin B12 1000 Mcg/Ml Inj) 1,000 mcg IM MWF [facility] Last Admin: 10/16/16 10:20 Dose: 1,000 mcg Dorzolamide HCl (Trusopt) 0 ml OU BID [facility] Last Admin: 10/16/16 10:21 Dose: 1 applic Gabapentin (Neurontin) 100 mg PO TID [facility] Heparin Sodium (Porcine) (Heparin) 5,000 units SC 12 [facility] Last Admin: 10/16/16 13:37 Dose: 5,000 units Hydralazine HCl (Apresoline) 10 mg IVP Q6H PRN PRN Reason: Systolic Blood Pressure Tigecycline 50 mg/ Sodium (Chloride) 100 mls @ 100 mls/hr IVPB Q12H [facility] Last Admin: 10/16/16 09:46 Dose: Not Given Insulin Glargine (Lantus) 10 unit SC HS [facility] Last Admin: 10/15/16 21:54 Dose: 10 u Insulin Human Regular (Novolin R) 0 unit SC ACHS [facility] PRN Reason: Protocol Last Admin: 10/16/16 13:38 Dose: 4 unit Latanoprost (Xalatan Opht) 0 ml OS [facility] Last Admin: 10/15/16 21:57 Dose: 1 ml Lisinopril (Zestril) 10 mg PO DAILY [facility] Last Admin: 10/16/16 10:18 Dose: 10 mg Metoclopramide HCl (Reglan) 5 mg IVP Q8 [facility] Last Admin: 10/16/16 13:38 Dose: 5 mg Pantoprazole Sodium (Protonix Ec Tab) 40 mg PO DAILY [facility] Last Admin: 10/16/16 10:18 Dose: 40 mg Rosuvastatin Calcium (Crestor) 5 mg PO [facility] Last Admin: 10/15/16 21:53 Dose: 5 mg Saccharomyces Boulardii (Florastor) 250 mg PO BID [facility] Last Admin: 10/16/16 10:30 Dose: 250 mg Timolol Maleate (Timoptic 0.5% Ophth Soln) 0 drop OU BID [facility] Last Admin: 10/16/16 10:20 Dose: 1 applic - Labs Labs: 10/16/16 09:06 10/16/16 09:06 PT 15.4 SECONDS (9.7-12.2) H 10/09/16 21:50 INR 1.3 10/09/16 21:50 APTT 29 SECONDS (21-34) 10/09/16 21:50 - Constitutional Appears: Non-toxic, No Acute Distress - Head Exam Head Exam: ATRAUMATIC, NORMAL INSPECTION, NORMOCEPHALIC - Eye Exam Eye Exam: EOMI - ENT Exam ENT Exam: Mucous Membranes Moist - Neck Exam Neck Exam: Full ROM - Respiratory Exam Respiratory Exam: NORMAL BREATHING PATTERN. absent: Respiratory Distress - Cardiovascular Exam Cardiovascular Exam: REGULAR RHYTHM, +S1, +S2 - GI/Abdominal Exam GI & Abdominal Exam: Soft, Normal Bowel Sounds. absent: Tenderness - Extremities Exam Extremities Exam: Full ROM, Normal Inspection - Neurological Exam Neurological Exam: Alert, Awake, Oriented x3 - Psychiatric Exam Psychiatric exam: Normal Affect, Normal Mood - Skin Skin Exam: Dry, Intact, Normal Color, Warm Assessment and Plan - Assessment and Plan (Free Text) Assessment: This is an 86 yo male with past medical hx of DM, prostate resection, HTN presenting with abdominal pain x 4 days. 1. Prostate mass * Urology (Dr. Ramirez) on board-->help appreciated * Heme-onc (Dr. Mishra) on board-->help appreciated * Patient has coude catheter in place, not to be removed. will need follow-up PSA and follow-up outpatient. * CT Abdomen/Pelvis (10/09/16): Small right pleural effusion and associated consolidation. Small perihepatic ascites. High-density material within the gallbladder presumed to reflect sludge and gallstones. Asymmetric questionable wall thickening involving the nondependent portion of the gallbladder. Correlate clinically for recent outside imaging to exclude possibility of vicarious excretion of contrast. 9 mm indeterminate right adrenal gland nodule. 1.3 cm left adrenal gland nodule, likely adenoma. Moderate bilateral hydroureteronephrosis. No obstructing calculus identified. Bilateral renal cysts. Enlarged heterogeneous and markedly irregular appearance of the prostate gland worrisome for prostate cancer. Recommend correlation with PSA and HUBER. Question gastric wall thickening however the stomach is decompressed and cannot be adequately evaluated. Cecal wall and terminal ileum appear thickened ; correlate clinically for infectious or inflammatory etiologies. 4.8 cm segment of severe wall thickening/narrowing of the rectosigmoid colon worrisome for malignant neoplasm. Recommend clinical correlation and colonoscopy when clinically feasible. Scattered prominent mesenteric and retroperitoneal lymph nodes. Sclerotic region involving the T11 vertebral body and L3 vertebral body. Giving concern for possibility of prostate cancer, recommend further evaluation with nuclear medicine bone scan. Additional findings as above. * pt is s/p cystoscopy with dilation * will ultimately need prostate biopsy * will place pt on telemetry 2. Acute Renal Insufficiency * Monitor BUN/Cr * Patient has coude catheter in place * Urology (Dr. Ramirez) on board-->help appreciated * off Metformin 3. Hydroureteronephrosis * Urology (Dr. Ramirez) on board help appreciated * CT Abdomen/Pelvis (10/09/16): Small right pleural effusion and associated consolidation. Small perihepatic ascites. High-density material within the gallbladder presumed to reflect sludge and gallstones. Asymmetric questionable wall thickening involving the nondependent portion of the gallbladder. Correlate clinically for recent outside imaging to exclude possibility of vicarious excretion of contrast. 9 mm indeterminate right adrenal gland nodule. 1.3 cm left adrenal gland nodule, likely adenoma. Moderate bilateral hydroureteronephrosis. No obstructing calculus identified. Bilateral renal cysts. Enlarged heterogeneous and markedly irregular appearance of the prostate gland worrisome for prostate cancer. Recommend correlation with PSA and HUBER. Question gastric wall thickening however the stomach is decompressed and cannot be adequately evaluated. Cecal wall and terminal ileum appear thickened ; correlate clinically for infectious or inflammatory etiologies. 4.8 cm segment of severe wall thickening/narrowing of the rectosigmoid colon worrisome for malignant neoplasm. Recommend clinical correlation and colonoscopy when clinically feasible. Scattered prominent mesenteric and retroperitoneal lymph nodes. Sclerotic region involving the T11 vertebral body and L3 vertebral body. Giving concern for possibility of prostate cancer, recommend further evaluation with nuclear medicine bone scan. Additional findings as above * Likely secondary to prostate mass obstruction. PSA elevated 216. * continue to monitor BUN/CR * Coude catheter in place 4. Urinary Tract Infection * 10/11/16 Enterococcus sensitive to macrobid, tigecycline, and Vancomycin * changed to tigecycline 50 q 12, day 1 * ID Dr. Cole. recs appreciated 5. Colitis * GI (Dr. Ponce) on board-->help appreciated * Surgery (Dr. Coley) on board-->help appreciated-->signed off * Colonoscopy (10/11/16): nonbleeding internal hemorrhoids, moderate diverticulosis, no evidence of diverticular bleeding, congested mucosa of distal descending mucosa, stool in colon-->Patient to have repeat colonoscopy in 5 years. Patient to follow-up with Dr. Ponce in office in 5 weeks. Recommends Analpram HC cream 2.5% externally BID for 10 weeks. * Pathology: Fragments of colonic mucosa with mild chronic inflammation and reactive changes * CT Abdomen/Pelvis (10/09/16): Small right pleural effusion and associated consolidation. Small perihepatic ascites. High-density material within the gallbladder presumed to reflect sludge and gallstones. Asymmetric questionable wall thickening involving the nondependent portion of the gallbladder. Correlate clinically for recent outside imaging to exclude possibility of vicarious excretion of contrast. 9 mm indeterminate right adrenal gland nodule. 1.3 cm left adrenal gland nodule, likely adenoma. Moderate bilateral hydroureteronephrosis. No obstructing calculus identified. Bilateral renal cysts. Enlarged heterogeneous and markedly irregular appearance of the prostate gland worrisome for prostate cancer. Recommend correlation with PSA and HUBER. Question gastric wall thickening however the stomach is decompressed and cannot be adequately evaluated. Cecal wall and terminal ileum appear thickened ; correlate clinically for infectious or inflammatory etiologies. 4.8 cm segment of severe wall thickening/narrowing of the rectosigmoid colon worrisome for malignant neoplasm. Recommend clinical correlation and colonoscopy when clinically feasible. Scattered prominent mesenteric and retroperitoneal lymph nodes. Sclerotic region involving the T11 vertebral body and L3 vertebral body. Giving concern for possibility of prostate cancer, recommend further evaluation with nuclear medicine bone scan. Additional findings as above * Flagyl 500mg IV Q 8 hours (active from -10/14/16) 6. Hypertension * controlled, continue to monitor * Hydralazine 10mg IV Q 6hours PRN SBP>160 * Started Lisinopril 5mg Po daily * Coreg 25mg PO bid * continue asa daily 7. Diabetes Mellitus * HgA1C 6.6 * Accuchecks ACHS * ISS * Hold home metformin due to SHANNAN * Crestor 5mg PO qHS * Lisinopril 5mg Po daily * asa 81 daily * lantus 10 HS 9. Anemia * Monitor H/H * GI (Dr. Ponce) on board--> pt does not need endoscopy inpatient * Colonoscopy (10/11/16): nonbleeding internal hemorrhoids, moderate diverticulosis, no evidence of diverticular bleeding, congested mucosa of distal descending mucosa, stool in colon-->Patient to have repeat colonoscopy in 5 years. Patient to follow-up with Dr. Ponce in office in 5 weeks. Recommends Analpram HC cream 2.5% externally BID for 10 weeks. * Pathology: Fragments of colonic mucosa with mild chronic inflammation and reactive changes 10. Pleural effusion * CT- small right pleural effusion and associated consolidation * Duonebs 3ml INH q6h MOISSE * 2L NC O2 as needed * we will repeat cxr, repeat cxr pending 11. Leukocytosis * 10/09/16 Urine culture contaminated * Blood cultures (10/09/16): no growth after 5 days * Urine culture (10/11/16): enterococcus-->sensitive to tigeyclcine, macrobid, and vancomycin * Monitor white count, which is uptrending * we are repeating blood and urine cultures, results pending * ID consult. Dr. Cole. recs appreciated. * repeat CXR * procal pending 12. 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 Jaffe <Aleyda Jaffe V - Last Filed: 01/15/17 23:50> Objective - Vital Signs/Intake and Output Vital Signs (last 24 hours): Temp Pulse Resp BP Pulse Ox 98 F 62 20 163/76 H 98 10/19/16 15:48 10/19/16 15:48 10/19/16 15:48 10/19/16 17:26 10/19/16 15:48 - Labs Labs: 10/19/16 13:54 10/19/16 13:54 PT 15.4 SECONDS (9.7-12.2) H 10/09/16 21:50 INR 1.3 10/09/16 21:50 APTT 29 SECONDS (21-34) 10/09/16 21:50 Attending/Attestation - Attestation I have personally seen and examined this patient.: Yes I have fully participated in the care of the patient.: Yes I have reviewed all pertinent clinical information, including history, physical exam and plan: Yes
[2016-10-16] MEDS: metroNIDAZOLE IV 250mg/50 ml 250 MG/50 ML BAG IVPB SCH (18:13)
[2016-10-16] MEDS: Latanoprost 2.5 ml Opht Soln OS SCH (21:02)
[2016-10-16] MEDS: (Lantus) Insulin Glargine, Recombinant SC SCH (21:56)
[2016-10-17] MEDS: Albuterol-Ipratrop 3 mg / 0.5 (3 ml) UD INH SCH ×4 (01:50→20:17)
[2016-10-17] MEDS: metroNIDAZOLE IV 250mg/50 ml 250 MG/50 ML BAG IVPB SCH ×3 (02:32→18:01)
[2016-10-17 07:23] LABS: BASO # 0.1 K/uL (0.0-0.2); BASO % 0.7 % (0.0-2.0); EOS # 0.2 K/uL (0.0-0.7); HEMATOCRIT 31.2 % (35.0-51.0); LYMPH # 1.6 K/uL (1.0-4.3); LYMPH % 7.8 % (20.0-40.0); MEAN CELL VOLUME 81.2 fL (80.0-94.0); MEAN CORPUSCULAR HEMOGLOBIN 26.4 pg (27.0-31.0); MEAN CORPUSCULAR HGB CONC 32.5 g/dL (33.0-37.0); MEAN PLATELET VOLUME 7.8 fL (7.2-11.7); MONO # 1.7 K/uL (0.0-0.8); MONO % 8.1 % (0.0-10.0); PLATELET COUNT 380 K/uL (130-400); RED CELL DISTRIBUTION WIDTH 15.5 % (11.5-14.5); WHITE BLOOD COUNT 20.7 K/uL (4.8-10.8)
[2016-10-17 08:45] LABS: ERYTHROCYTE SEDIMENTATION RATE 70 mm/hr (0-15)
[2016-10-17 08:51] LABS: ALB/GLOB RATIO 0.8 (1.0-2.1); ALKALINE PHOSPHATASE 60 U/L (38-126); ALT/SGPT 23 U/L (21-72); AST/SGOT 14 U/L (17-59); BILIRUBIN,TOTAL 0.5 mg/dL (0.2-1.3); BLOOD UREA NITROGEN 22 mg/dL (9-20); CALCIUM 7.5 mg/dl (8.6-10.4); CARBON DIOXIDE 22 mmol/L (22-30); CHLORIDE 102 mmol/L (98-107); GFR AFRICAN-AMERICAN > 60; GLUCOSE,RANDOM 117 mg/dL (75-110); MAGNESIUM 1.5 mg/dL (1.6-2.3); PHOSPHOROUS 3.3 mg/dL (2.5-4.5); POTASSIUM 3.2 mmol/L (3.6-5.2); SODIUM 133 mmol/L (132-148)
[2016-10-17 09:25] LABS: EOSINOPHIL 1 % (0-4); NEUTROPHIL 87 % (50-75); TOTAL CELLS COUNTED 100
--- NOTE | 2016-10-17 09:38 | PN ---
DATE: 10/17/2016 LOCATION: [id number] This is an 86-year-old male seen and examined at rounds without reported significant clinical changes or reported active bleeding. Appears to be somewhat sleepy. No reported chest pain or palpitation. The patient is post colonoscopy as well as cystoscopy and he still has Nair catheter in place. The entire chart is reviewed including, but not limited to, most recent lab and radiology study results, current and previous medication lists, current and the previous medical effects as well as all the ok dical physician notes. PHYSICAL EXAMINATION: GENERAL: An 86-year-old male. VITAL SIGNS: Afebrile with pulse of 72, respiratory rate 20-22, blood pressure 152/74. HEENT: Showed pale, dry oral mucoid membrane. Nonicteric sclerae. LUNGS: A few scattered crepitations. Decreased air entry at bases. HEART: Positive S1 and S2. ABDOMEN: Soft with slight distention. No mass or organomegaly. No rebound tenderness or guarding. RECTAL: Positive tone. Vault is empty. EXTREMITIES: Without significant edema, clubbing or cyanosis. IMPRESSION: 1. Anemia. 2. Diverticulosis with left-sided colitis. 3. Abnormal CAT scan of the abdomen and the pelvis. 4. Known history of, but not limited to, hypertension, benign prostatic hypertrophy and urine retent ion. The patient is status post cystoscopy. 5. Electrolyte imbalance, improving. SUGGESTION: 1. Continue current management. 2. Advance oral intake. Justin Ponce MD cc: 14 TT: 10/17/2016 09:37:59 Confirmation # [id number] Dictation # [id number] mn
[2016-10-17] MEDS ORDERED: Iohexol 240 (50 ml) PO ONE (09:45)
[2016-10-17] MEDS: (Novolin R) Insulin Human Regular 100 units/ml vial SC SCH ×5 (11:08→21:33)
[2016-10-17] MEDS: Pantoprazole 40 mg EC Tab PO SCH (11:10)
[2016-10-17] MEDS: Saccharomyces Boulardi 250 mg Cap PO SCH ×2 (11:10→17:59)
[2016-10-17] MEDS ORDERED: Potassium Chloride 20 mEq ER Tab PO ONE (12:15)
[2016-10-17] MEDS: Magnesium Sulfate 1 gm in D5W 1 GM/100 ML BAG IVPB SCH ×2 (12:29→14:02)
--- NOTE | 2016-10-17 15:30 | CP.PCM.PN ---
<Tavares Donald - Last Filed: 10/17/16 15:34> Subjective - Date & Time of Evaluation Date of Evaluation: 10/17/16 Time of Evaluation: 15:30 - Subjective Subjective: Med progress note. Attending: Dr. Jaffe Pt seen and examined at bedside. No acute distress. No events overnight. White count trending down. Repeat urine pending, kirkpatrick scan and dopplers pending. Denies fevers, chills, cp, sob. No complaints. Objective - Vital Signs/Intake and Output Vital Signs (last 24 hours): Temp Pulse Resp BP Pulse Ox 97.9 F 66 19 178/80 H 96 10/17/16 08:54 10/17/16 08:54 10/17/16 08:54 10/17/16 11:10 10/17/16 08:54 Intake and Output: 10/17/16 10/17/16 06:59 18:59 Intake Total 400 Output Total 1450 Balance -1050 - Medications Medications: Current Medications Albuterol/Ipratropium (Duoneb 3 Mg/0.5 Mg (3 Ml) Ud) 3 ml INH RQ6 [facility] Last Admin: 10/17/16 14:18 Dose: 3 ml Aspirin (Aspirin Chewable) 81 mg PO DAILY [facility] Last Admin: 10/17/16 11:10 Dose: 81 mg Carvedilol (Coreg) 25 mg PO BID [facility] Last Admin: 10/17/16 11:10 Dose: 25 mg Cyanocobalamin (Vitamin B12 1000 Mcg/Ml Inj) 1,000 mcg IM MWF [facility] Last Admin: 10/16/16 10:20 Dose: 1,000 mcg Dorzolamide HCl (Trusopt) 0 ml OU BID [facility] Last Admin: 10/16/16 17:28 Dose: 1 applic Gabapentin (Neurontin) 100 mg PO TID [facility] Heparin Sodium (Porcine) (Heparin) 5,000 units SC 12 [facility] Last Admin: 10/17/16 14:01 Dose: 5,000 units Hydralazine HCl (Apresoline) 10 mg IVP Q6H PRN PRN Reason: Systolic Blood Pressure Tigecycline 50 mg/ Sodium (Chloride) 100 mls @ 100 mls/hr IVPB Q12H [facility] Last Admin: 10/17/16 14:07 Dose: 100 mls/hr Metronidazole (Flagyl) 250 mg in 50 mls @ 100 mls/hr IVPB Q8H [facility] Stop: 10/21/16 18:01 Last Admin: 10/17/16 11:12 Dose: 100 mls/hr Insulin Glargine (Lantus) 10 unit SC [facility] Last Admin: 10/16/16 21:56 Dose: 10 u Insulin Human Regular (Novolin R) 0 unit SC ACHS [facility] PRN Reason: Protocol Last Admin: 10/17/16 15:00 Dose: Not Given Latanoprost (Xalatan Opht) 0 ml OS HS [facility] Last Admin: 10/16/16 21:02 Dose: 2.5 ml Lisinopril (Zestril) 10 mg PO DAILY [facility] Last Admin: 10/17/16 11:10 Dose: 10 mg Metoclopramide HCl (Reglan) 5 mg IVP Q8 [facility] Last Admin: 10/17/16 14:02 Dose: 5 mg Pantoprazole Sodium (Protonix Ec Tab) 40 mg PO DAILY [facility] Last Admin: 10/17/16 11:10 Dose: 40 mg Rosuvastatin Calcium (Crestor) 5 mg PO HS [facility] Last Admin: 10/16/16 21:02 Dose: 5 mg Saccharomyces Boulardii (Florastor) 250 mg PO BID [facility] Last Admin: 10/17/16 11:10 Dose: 250 mg Timolol Maleate (Timoptic 0.5% Oph Soln) 0 drop OU BID [facility] Last Admin: 10/17/16 11:12 Dose: 1 applic - Labs Labs: 10/17/16 07:00 10/17/16 07:00 PT 15.4 SECONDS (9.7-12.2) H 10/09/16 21:50 INR 1.3 10/09/16 21:50 APTT 29 SECONDS (21-34) 10/09/16 21:50 - Constitutional Appears: Non-toxic, No Acute Distress - Head Exam Head Exam: ATRAUMATIC, NORMAL INSPECTION, NORMOCEPHALIC - Eye Exam Eye Exam: EOMI - ENT Exam ENT Exam: Mucous Membranes Moist - Neck Exam Neck Exam: Full ROM, Normal Inspection. absent: Lymphadenopathy - Respiratory Exam Respiratory Exam: NORMAL BREATHING PATTERN. absent: Respiratory Distress - Cardiovascular Exam Cardiovascular Exam: +S1, +S2 - GI/Abdominal Exam GI & Abdominal Exam: Soft, Normal Bowel Sounds. absent: Tenderness - Extremities Exam Extremities Exam: Full ROM, Normal Inspection - Neurological Exam Neurological Exam: Alert, Awake - Psychiatric Exam Psychiatric exam: Normal Affect, Normal Mood - Skin Skin Exam: Dry, Intact, Normal Color, Warm Assessment and Plan - Assessment and Plan (Free Text) Assessment: This is an 86 yo male with past medical hx of DM, prostate resection, HTN presenting with abdominal pain x 4 days. 1. Prostate mass * Urology (Dr. Ramirez) on board-->help appreciated * Heme-onc (Dr. Mishra) on board-->help appreciated * Patient has coude catheter in place, not to be removed. will need follow-up PSA and follow-up outpatient. * CT Abdomen/Pelvis (10/09/16): Small right pleural effusion and associated consolidation. Small perihepatic ascites. High-density material within the gallbladder presumed to reflect sludge and gallstones. Asymmetric questionable wall thickening involving the nondependent portion of the gallbladder. Correlate clinically for recent outside imaging to exclude possibility of vicarious excretion of contrast. 9 mm indeterminate right adrenal gland nodule. 1.3 cm left adrenal gland nodule, likely adenoma. Moderate bilateral hydroureteronephrosis. No obstructing calculus identified. Bilateral renal cysts. Enlarged heterogeneous and markedly irregular appearance of the prostate gland worrisome for prostate cancer. Recommend correlation with PSA and HUBER. Question gastric wall thickening however the stomach is decompressed and cannot be adequately evaluated. Cecal wall and terminal ileum appear thickened ; correlate clinically for infectious or inflammatory etiologies. 4.8 cm segment of severe wall thickening/narrowing of the rectosigmoid colon worrisome for malignant neoplasm. Recommend clinical correlation and colonoscopy when clinically feasible. Scattered prominent mesenteric and retroperitoneal lymph nodes. Sclerotic region involving the T11 vertebral body and L3 vertebral body. Giving concern for possibility of prostate cancer, recommend further evaluation with nuclear medicine bone scan. Additional findings as above. * pt is s/p cystoscopy with dilation * will ultimately need prostate biopsy * will place pt on telemetry 2. Acute Renal Insufficiency * Monitor BUN/Cr * Patient has coude catheter in place * Urology (Dr. Ramirez) on board-->help appreciated * off Metformin 3. Hydroureteronephrosis * Urology (Dr. Ramirez) on board help appreciated * CT Abdomen/Pelvis (10/09/16): Small right pleural effusion and associated consolidation. Small perihepatic ascites. High-density material within the gallbladder presumed to reflect sludge and gallstones. Asymmetric questionable wall thickening involving the nondependent portion of the gallbladder. Correlate clinically for recent outside imaging to exclude possibility of vicarious excretion of contrast. 9 mm indeterminate right adrenal gland nodule. 1.3 cm left adrenal gland nodule, likely adenoma. Moderate bilateral hydroureteronephrosis. No obstructing calculus identified. Bilateral renal cysts. Enlarged heterogeneous and markedly irregular appearance of the prostate gland worrisome for prostate cancer. Recommend correlation with PSA and HUBER. Question gastric wall thickening however the stomach is decompressed and cannot be adequately evaluated. Cecal wall and terminal ileum appear thickened ; correlate clinically for infectious or inflammatory etiologies. 4.8 cm segment of severe wall thickening/narrowing of the rectosigmoid colon worrisome for malignant neoplasm. Recommend clinical correlation and colonoscopy when clinically feasible. Scattered prominent mesenteric and retroperitoneal lymph nodes. Sclerotic region involving the T11 vertebral body and L3 vertebral body. Giving concern for possibility of prostate cancer, recommend further evaluation with nuclear medicine bone scan. Additional findings as above * Likely secondary to prostate mass obstruction. PSA elevated 216. * continue to monitor BUN/CR * Coude catheter in place 4. Urinary Tract Infection * 10/11/16 Enterococcus sensitive to macrobid, tigecycline, and Vancomycin * changed to tigecycline 50 q 12, day 2 * ID Dr. Cole. recs appreciated 5. Colitis * GI (Dr. Ponce) on board-->help appreciated * Surgery (Dr. Coley) on board-->help appreciated-->signed off * Colonoscopy (10/11/16): nonbleeding internal hemorrhoids, moderate diverticulosis, no evidence of diverticular bleeding, congested mucosa of distal descending mucosa, stool in colon-->Patient to have repeat colonoscopy in 5 years. Patient to follow-up with Dr. Ponce in office in 5 weeks. Recommends Analpram HC cream 2.5% externally BID for 10 weeks. * Pathology: Fragments of colonic mucosa with mild chronic inflammation and reactive changes * CT Abdomen/Pelvis (10/09/16): Small right pleural effusion and associated consolidation. Small perihepatic ascites. High-density material within the gallbladder presumed to reflect sludge and gallstones. Asymmetric questionable wall thickening involving the nondependent portion of the gallbladder. Correlate clinically for recent outside imaging to exclude possibility of vicarious excretion of contrast. 9 mm indeterminate right adrenal gland nodule. 1.3 cm left adrenal gland nodule, likely adenoma. Moderate bilateral hydroureteronephrosis. No obstructing calculus identified. Bilateral renal cysts. Enlarged heterogeneous and markedly irregular appearance of the prostate gland worrisome for prostate cancer. Recommend correlation with PSA and HUBER. Question gastric wall thickening however the stomach is decompressed and cannot be adequately evaluated. Cecal wall and terminal ileum appear thickened ; correlate clinically for infectious or inflammatory etiologies. 4.8 cm segment of severe wall thickening/narrowing of the rectosigmoid colon worrisome for malignant neoplasm. Recommend clinical correlation and colonoscopy when clinically feasible. Scattered prominent mesenteric and retroperitoneal lymph nodes. Sclerotic region involving the T11 vertebral body and L3 vertebral body. Giving concern for possibility of prostate cancer, recommend further evaluation with nuclear medicine bone scan. Additional findings as above * Flagyl 500mg IV Q 8 hours (active from -10/14/16); we have restarted flagyl , this is day number 2 6. Hypertension * controlled, continue to monitor * Hydralazine 10mg IV Q 6hours PRN SBP>160 * continue Lisinopril 10mg Po daily * Coreg 25mg PO bid * continue asa daily 7. Diabetes Mellitus * HgA1C 6.6 * Accuchecks ACHS * ISS * Hold home metformin due to SHANNAN * Crestor 5mg PO qHS * Lisinopril 10mg Po daily * asa 81 daily * lantus 10 HS 9. Anemia * Monitor H/H * GI (Dr. Ponce) on board--> pt does not need endoscopy inpatient * Colonoscopy (10/11/16): nonbleeding internal hemorrhoids, moderate diverticulosis, no evidence of diverticular bleeding, congested mucosa of distal descending mucosa, stool in colon-->Patient to have repeat colonoscopy in 5 years. Patient to follow-up with Dr. Ponce in office in 5 weeks. Recommends Analpram HC cream 2.5% externally BID for 10 weeks. * Pathology: Fragments of colonic mucosa with mild chronic inflammation and reactive changes 10. Pleural effusion * CT- small right pleural effusion and associated consolidation * Duonebs 3ml INH q6h [facility] * 2L NC O2 as needed * kirkpatrick scan of chest abdomen pelvis pending 11. Leukocytosis * 10/09/16 Urine culture contaminated * Blood cultures (10/09/16): no growth after 5 days * Urine culture (10/11/16): enterococcus-->sensitive to tigeyclcine, macrobid, and vancomycin * Monitor white count, which had been uptrending; trending down as of today * we are repeating blood and urine cultures; repeat blood cultures negative. * ID consult. Dr. Cole. recs appreciated. * procal negative * will discuss with heme/onc possible sources of leukocytosis * we will check for c diff 12. GI/DVT * Aspirin 81mg Po daily * reglan 5 q 8 [facility] * protonix 40 daily * continue heparin 5000 q 12 * pt is full code and POLST in chart discussed with Dr. Jaffe <Aleyda Jaffe V - Last Filed: 01/15/17 23:51> Objective - Vital Signs/Intake and Output Vital Signs (last 24 hours): Temp Pulse Resp BP Pulse Ox 98 F 62 20 163/76 H 98 10/19/16 15:48 10/19/16 15:48 10/19/16 15:48 10/19/16 17:26 10/19/16 15:48 - Labs Labs: 10/19/16 13:54 10/19/16 13:54 PT 15.4 SECONDS (9.7-12.2) H 10/09/16 21:50 INR 1.3 10/09/16 21:50 APTT 29 SECONDS (21-34) 10/09/16 21:50 Attending/Attestation - Attestation I have personally seen and examined this patient.: Yes I have fully participated in the care of the patient.: Yes I have reviewed all pertinent clinical information, including history, physical exam and plan: Yes
[2016-10-17] MEDS: Dorzolamide 2% Opht Sol 10ml OU SCH (17:59)
[2016-10-17] MEDS: Latanoprost 2.5 ml Opht Soln OS SCH (21:22)
[2016-10-17] MEDS: (Lantus) Insulin Glargine, Recombinant SC SCH (21:37)
--- NOTE | 2016-10-17 22:06 | VASCLAB ---
PROCEDURE: Lower Extremity Venous Duplex Exam. HISTORY: leukocytosis PRIORS: None. TECHNIQUE: Bilateral common femoral, femoral, popliteal and posterior tibial, peroneal and great saphenous veins were evaluated. Flow was assessed with color Doppler, compressibility, assessment of phasic flow and augmentation response. Report prepared by LAYTON Corrales, RVT FINDINGS: RIGHT: 1. Common Femoral Vein: 1.1. Compressibility - Fully compressible: Thrombus - None : Flow - Phasic: Augmentation -Normal: Reflux - None. 2. Femoral Vein: 2.1. Compressibility - Fully compressible: Thrombus - None : Flow - Phasic: Augmentation -Normal: Reflux - None. 3. Popliteal Vein: 3.1. Compressibility - Fully compressible: Thrombus - None : Flow - Phasic: Augmentation -Normal: Reflux - None. 4. Posterior Tibial Vein: 4.1. Compressibility - Fully compressible: Thrombus - None: Flow - Phasic: Augmentation -Normal: Reflux - None. 5. Peroneal Vein: 5.1. Compressibility - Fully compressible: Thrombus - None: Flow - Phasic: Augmentation -Normal: Reflux - None. 6. Great Saphenous Vein: 6.1. Compressibility - Fully compressible: Thrombus - None: Flow - Phasic: Augmentation - Normal: Reflux - Severe. LEFT: 1. Common Femoral Vein: 1.1. Compressibility - Fully compressible: Thrombus - None: Flow - Phasic: Augmentation -Normal: Reflux - None. 2. Femoral Vein: 2.1. Compressibility - Fully compressible: Thrombus - None: Flow - Phasic: Augmentation -Normal: Reflux - None. 3. Popliteal Vein: 3.1. Compressibility - Fully compressible: Thrombus - None : Flow - Phasic: Augmentation -Normal: Reflux - None. 4. Posterior Tibial Vein: 4.1. Compressibility - Fully compressible: Thrombus - None: Flow - Phasic: Augmentation -Normal: Reflux - None. 5. Peroneal Vein: 5.1. Compressibility - Fully compressible: Thrombus - None: Flow - Phasic: Augmentation -Normal: Reflux - None. 6. Great Saphenous Vein: 6.1. Compressibility - Fully compressible: Thrombus - None: Flow - Phasic: Augmentation - Normal: Reflux - None. 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 Left: None significant. IMPRESSION: Right: No evidence of deep or superficial vein thrombosis of the right lower extremity. Left: No evidence of deep or superficial vein thrombosis of the left lower extremity. Normal valve function noted of the left side.
--- NOTE | 2016-10-17 22:09 | CP.PCM.PN ---
Subjective - Date & Time of Evaluation Date of Evaluation: 10/17/16 Time of Evaluation: 03:15 - Subjective Subjective: dictated Objective - Vital Signs/Intake and Output Vital Signs (last 24 hours): Temp Pulse Resp BP Pulse Ox 98.6 F 68 20 150/64 97 10/17/16 15:58 10/17/16 20:16 10/17/16 15:58 10/17/16 17:59 10/17/16 15:58 Intake and Output: 10/17/16 10/18/16 18:59 06:59 Intake Total 790 Output Total 900 Balance -110 - Medications Medications: Current Medications Albuterol/Ipratropium (Duoneb 3 Mg/0.5 Mg (3 Ml) Ud) 3 ml INH RQ6 [facility] Last Admin: 10/17/16 20:17 Dose: Not Given Aspirin (Aspirin Chewable) 81 mg PO DAILY [facility] Last Admin: 10/17/16 11:10 Dose: 81 mg Carvedilol (Coreg) 25 mg PO BID [facility] Last Admin: 10/17/16 17:59 Dose: 25 mg Cyanocobalamin (Vitamin B12 1000 Mcg/Ml Inj) 1,000 mcg IM MWF [facility] Last Admin: 10/16/16 10:20 Dose: 1,000 mcg Dorzolamide HCl (Trusopt) 0 ml OU BID [facility] Last Admin: 10/17/16 17:59 Dose: 1 applic Gabapentin (Neurontin) 100 mg PO TID [facility] Heparin Sodium (Porcine) (Heparin) 5,000 units SC 12 [facility] Last Admin: 10/17/16 14:01 Dose: 5,000 units Hydralazine HCl (Apresoline) 10 mg IVP Q6H PRN PRN Reason: Systolic Blood Pressure Metronidazole (Flagyl) 250 mg in 50 mls @ 100 mls/hr IVPB Q8H [facility] Stop: 10/21/16 18:01 Last Admin: 10/17/16 18:01 Dose: 100 mls/hr Tigecycline 50 mg/ Sodium (Chloride) 100 mls @ 100 mls/hr IVPB Q12H [facility] Insulin Glargine (Lantus) 10 unit SC HS [facility] Last Admin: 10/17/16 21:37 Dose: 10 u Insulin Human Regular (Novolin R) 0 unit SC ACHS [facility] PRN Reason: Protocol Last Admin: 10/17/16 21:33 Dose: Not Given Latanoprost (Xalatan Opht) 0 ml OS HS [facility] Last Admin: 10/17/16 21:22 Dose: 1 ml Lisinopril (Zestril) 10 mg PO DAILY [facility] Last Admin: 10/17/16 11:10 Dose: 10 mg Metoclopramide HCl (Reglan) 5 mg IVP Q8 [facility] Last Admin: 10/17/16 21:22 Dose: 5 mg Pantoprazole Sodium (Protonix Ec Tab) 40 mg PO DAILY [facility] Last Admin: 10/17/16 11:10 Dose: 40 mg Rosuvastatin Calcium (Crestor) 5 mg PO HS [facility] Last Admin: 10/17/16 21:22 Dose: 5 mg Saccharomyces Boulardii (Florastor) 250 mg PO BID [facility] Last Admin: 10/17/16 17:59 Dose: 250 mg Timolol Maleate (Timoptic 0.5% Ophth Soln) 0 drop OU BID [facility] Last Admin: 10/17/16 17:59 Dose: 1 applic - Labs Labs: 10/17/16 07:00 10/17/16 07:00 PT 15.4 SECONDS (9.7-12.2) H 10/09/16 21:50 INR 1.3 10/09/16 21:50 APTT 29 SECONDS (21-34) 10/09/16 21:50
--- NOTE | 2016-10-17 23:10 | PN ---
DATE: 10/17/2016 SUBJECTIVE: I went to see the patient. He denied any complaints. PHYSICAL EXAMINATION: VITAL SIGNS: T-max was 98.6, pulse 68, respirations were 20 and blood pressure 156/64. HEENT: Head was atraumatic, normocephalic. He denied any pains. NECK: Supple. LUNGS: Had occasional wheeze. HEART: S1, S2 was regular. ABDOMEN: Soft, nontender, but bowel sounds were gurgling. EXTREMITIES: Had no edema, clubbing or cyanosis. LABORATORY DATA: Noted, white count was 20.7, hemoglobin 10.2, hematocrit 31.2 , platelet count is 380 and neutrophils were 82.4 and ESR is 70. Potassium was 3.2, sodium 133, chloride 102, CO2 is 22, BUN is 22, creatinine is 0.9, potassium was low. His blood cultures and repeat urine cultures are all negative. On 10/11/2016, he did have Enterococcus faecalis and he was going to go for CAT scans today, the results of which are pending. He did have CAT scan before, which showed bilateral hydronephrosis with the prostate enlargement. He also went for lower extremity arterial Dopplers yesterday and those showed right, severe valvular incompetence of the right greater saphenous vein, valvular incompetence. Otherwise it did not show any _vegetation____, no thrombus noted, and we are waiting for the chest, abdomen and we are also waiting for C. diff. PLAN: The patient is on Tygacil and Flagyl at this time. Will continue that and repeat the labs tomorrow and tomorrow will be third day of Tygacil. Will follow. Yvonne Cole MD cc: [id number] TT: 10/17/2016 23:09:07 Confirmation # [id number] Dictation # [id number] taisha BRAVO
[2016-10-18] MEDS: Albuterol-Ipratrop 3 mg / 0.5 (3 ml) UD INH SCH ×4 (01:36→19:26)
[2016-10-18] MEDS: metroNIDAZOLE IV 250mg/50 ml 250 MG/50 ML BAG IVPB SCH ×3 (02:35→18:16)
--- NOTE | 2016-10-18 07:28 | CT ---
PROCEDURE: CT Chest, Abdomen and Pelvis without intravenous contrast HISTORY: leukocytosis COMPARISON: Comparison is made to the previous CT of the chest dated 01/28/[address] of the abdomen dated 10/09/2016. TECHNIQUE: Radiation dose: Total exam DLP = 879.65 mGy-cm. This CT exam was performed using one or more of the following dose reduction techniques: Automated exposure control, adjustment of the mA and/or kV according to patient size, and/or use of iterative reconstruction technique. FINDINGS: CT CHEST WITHOUT CONTRAST: LUNGS: No evidence of pneumonia or mass lesion in the lungs. MEDIASTINUM: Unremarkable. Normal caliber aorta and pulmonary arterial trunk. The heart is mildly to moderately enlarged. LYMPH NODES: No evidence of significant lymphadenopathy in the chest. PLEURA: There is a right sided small pleural effusion. BONES: Unremarkable. OTHER FINDINGS: Small hiatus hernia is noted. CT ABDOMEN AND PELVIS: LIVER: Unremarkable. No gross lesion or ductal dilatation. GALLBLADDER AND BILE DUCTS: High density in the gallbladder is again noted suggestive of gallstones and gallbladder sludge. No evidence of acute cholecystitis. PANCREAS: Unremarkable. No gross lesion or ductal dilatation. SPLEEN: Unremarkable. ADRENALS: Again seen is low-attenuation nodule at the left adrenal gland measures 1.8 centimeter has not significantly changed since the previous CT of the chest dated 01/28/2015 likely represents benign adenoma. The right adrenal gland is grossly unremarkable. KIDNEYS AND URETERS: Again seen is moderate to mildly severe right hydronephrosis and hydroureter. No evidence of obstructing calcaneus. No evidence of left hydronephrosis. Again seen is low-attenuation likely cyst exophytic from the left kidney measures 2.2 centimeter. VASCULATURE: Unremarkable. No aortic aneurysm. BOWEL: Mild constipation more prominent in the distal large bowel. No evidence of bowel obstruction. The previously seen and segmental wall thickening at the rectosigmoid colon in the previous exam is not clearly seen in the current study. APPENDIX: No evidence of appendicitis. PERITONEUM: Interval resolving of the previously seen small ascites adjacent to the liver. No evidence of free air. LYMPH NODES: Again seen is large para-aortic/retroperitoneal lymphadenopathy. There are also left pelvic sidewall and left iliac chain lymphadenopathy. BLADDER: There is a Nair catheter in the bladder. [id number] bladder wall thickening is again noted. REPRODUCTIVE: Markedly enlarged prostate protruding and extending into the bladder low min and posterior wall is noted. 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 Possible also sclerotic bony lesion seen in the sacral and right pubic bone suspicious for osseous metastasis P OTHER FINDINGS: None. IMPRESSION: No evidence of pneumonia. Cardiomegaly and right pleural effusion. Stable low-attenuation nodule at the left adrenal gland since previous study in 2015 suggestive of benign adenoma. Re- demonstration of moderate to mildly severe right hydronephrosis and hydroureter without evidence of obstructing calculus. The possibility of right UV obstruction due to enlarged prostate or prostate neoplasm should be considered. Re- demonstration of large retroperitoneal lymphadenopathy and left iliac and left pelvic sidewall lymphadenopathy. Findings suspicious of metastasis and the differential diagnosis includes metastasis from prostate cancer versus less likely other neoplasm or lymphoma. Markedly enlarged prostate protruding into the bladder lumen. Sclerotic bony lesions again noted also suspicious for osseous metastasis. Correlation with the PSA level is suggested.
[2016-10-18 08:09] LABS: BASO # 0.1 K/uL (0.0-0.2); BASO % 0.5 % (0.0-2.0); EOS # 0.2 K/uL (0.0-0.7); HEMATOCRIT 29.3 % (35.0-51.0); LYMPH # 1.7 K/uL (1.0-4.3); LYMPH % 8.4 % (20.0-40.0); MEAN CELL VOLUME 80.8 fL (80.0-94.0); MEAN CORPUSCULAR HEMOGLOBIN 26.4 pg (27.0-31.0); MEAN CORPUSCULAR HGB CONC 32.7 g/dL (33.0-37.0); MEAN PLATELET VOLUME 8.2 fL (7.2-11.7); MONO % 9.6 % (0.0-10.0); PLATELET COUNT 349 K/uL (130-400); RED CELL DISTRIBUTION WIDTH 15.3 % (11.5-14.5); WHITE BLOOD COUNT 20.8 K/uL (4.8-10.8)
[2016-10-18 08:45] LABS: CHLORIDE 100 mmol/L (98-107); POTASSIUM 3.3 mmol/L (3.6-5.2); SODIUM 131 mmol/L (132-148)
[2016-10-18 08:47] LABS: AST/SGOT 19 U/L (17-59); BILIRUBIN,TOTAL 0.5 mg/dL (0.2-1.3); CARBON DIOXIDE 22 mmol/L (22-30); GFR AFRICAN-AMERICAN > 60
[2016-10-18] MEDS: (Novolin R) Insulin Human Regular 100 units/ml vial SC SCH ×4 (08:47→21:19)
[2016-10-18 08:48] LABS: ALB/GLOB RATIO 0.7 (1.0-2.1); ALKALINE PHOSPHATASE 63 U/L (38-126); ALT/SGPT 21 U/L (21-72); BLOOD UREA NITROGEN 22 mg/dL (9-20); GLUCOSE,RANDOM 170 mg/dL (75-110); PHOSPHOROUS 3.2 mg/dL (2.5-4.5); TOTAL PROTEIN 5.7 g/dL (6.3-8.3)
[2016-10-18 08:49] LABS: CALCIUM 7.1 mg/dl (8.6-10.4); MAGNESIUM 1.5 mg/dL (1.6-2.3)
[2016-10-18 09:10] LABS: NEUTROPHIL 85 % (50-75); TOTAL CELLS COUNTED 100
[2016-10-18] MEDS ORDERED: Potassium Chloride 20 mEq ER Tab PO ONE (09:30)
--- NOTE | 2016-10-18 10:04 | CP.PCM.PN ---
Subjective - Date & Time of Evaluation Date of Evaluation: 10/18/16 Time of Evaluation: 10:00 - Subjective Subjective: Code star note Code star was called. Code team responded. Per nurse, patient had a unwitnessed fall in the bathroom. The patient is alert and oriented. He reports falling and hitting the back of his head against the door frame. He fell on his buttock but denies any back or buttock pain. He was able to stand with assistance to chair. Cranial nerves intact. Patient to be sent for CT head and hip xray. Objective - Vital Signs/Intake and Output Vital Signs (last 24 hours): Temp Pulse Resp BP Pulse Ox 98.2 F 70 20 155/74 H 98 10/18/16 09:54 10/18/16 09:54 10/18/16 09:54 10/18/16 09:54 10/18/16 09:54 - Medications Medications: Current Medications Albuterol/Ipratropium (Duoneb 3 Mg/0.5 Mg (3 Ml) Ud) 3 ml INH RQ6 [facility] Last Admin: 10/18/16 08:33 Dose: 3 ml Aspirin (Aspirin Chewable) 81 mg PO DAILY [facility] Last Admin: 10/17/16 11:10 Dose: 81 mg Carvedilol (Coreg) 25 mg PO BID [facility] Last Admin: 10/17/16 17:59 Dose: 25 mg Cyanocobalamin (Vitamin B12 1000 Mcg/Ml Inj) 1,000 mcg IM MWF [facility] Last Admin: 10/16/16 10:20 Dose: 1,000 mcg Dorzolamide HCl (Trusopt) 0 ml OU BID [facility] Last Admin: 10/17/16 17:59 Dose: 1 applic Gabapentin (Neurontin) 100 mg PO TID [facility] Heparin Sodium (Porcine) (Heparin) 5,000 units SC 12 [facility] Last Admin: 10/17/16 14:01 Dose: 5,000 units Hydralazine HCl (Apresoline) 10 mg IVP Q6H PRN PRN Reason: Systolic Blood Pressure Metronidazole (Flagyl) 250 mg in 50 mls @ 100 mls/hr IVPB Q8H [facility] Stop: 10/21/16 18:01 Last Admin: 10/18/16 02:35 Dose: 100 mls/hr Tigecycline 50 mg/ Sodium (Chloride) 100 mls @ 100 mls/hr IVPB Q12H [facility] Magnesium Sulfate/Dextrose (Magnesium Sulfate 1 Gm/100 Ml D5w) 1 gm in 100 mls @ 200 mls/hr IVPB Q30M [facility] Stop: 10/18/16 10:59 Insulin Glargine (Lantus) 10 unit SC HS [facility] Last Admin: 10/17/16 21:37 Dose: 10 u Insulin Human Regular (Novolin R) 0 unit SC ACHS [facility] PRN Reason: Protocol Last Admin: 10/18/16 08:47 Dose: 2 unit Latanoprost (Xalatan Opht) 0 ml OS HS [facility] Last Admin: 10/17/16 21:22 Dose: 1 ml Lisinopril (Zestril) 10 mg PO DAILY [facility] Last Admin: 10/17/16 11:10 Dose: 10 mg Metoclopramide HCl (Reglan) 5 mg IVP Q8 [facility] Last Admin: 10/18/16 05:34 Dose: 5 mg Pantoprazole Sodium (Protonix Ec Tab) 40 mg PO DAILY [facility] Last Admin: 10/17/16 11:10 Dose: 40 mg Rosuvastatin Calcium (Crestor) 5 mg PO HS [facility] Last Admin: 10/17/16 21:22 Dose: 5 mg Saccharomyces Boulardii (Florastor) 250 mg PO BID [facility] Last Admin: 10/17/16 17:59 Dose: 250 mg Timolol Maleate (Timoptic 0.5% Ophth Soln) 0 drop OU BID [facility] Last Admin: 10/17/16 17:59 Dose: 1 applic - Labs Labs: 10/18/16 07:52 10/18/16 07:52 PT 15.4 SECONDS (9.7-12.2) H 10/09/16 21:50 INR 1.3 10/09/16 21:50 APTT 29 SECONDS (21-34) 10/09/16 21:50 - Head Exam Head Exam: ATRAUMATIC (no lesions or echymosis or wounds), NORMOCEPHALIC - Eye Exam Eye Exam: EOMI, Normal appearance, PERRL Pupil Exam: NORMAL ACCOMODATION, PERRL - ENT Exam ENT Exam: Mucous Membranes Moist, Normal Exam - Neck Exam Neck Exam: Normal Inspection - Extremities Exam Extremities Exam: Full ROM, Normal Inspection. absent: Tenderness - Back Exam Back Exam: NORMAL INSPECTION. absent: tenderness - Neurological Exam Neurological Exam: Alert, Awake, CN II-XII Intact, Oriented x3 - Psychiatric Exam Psychiatric exam: Normal Affect, Normal Mood - Skin Skin Exam: Dry, Intact, Normal Color, Warm Assessment and Plan - Assessment and Plan (Free Text) Assessment: 86 y/o M s/p fall. Plan: CT head w/o contrast bilateral hip xray fall precautions pt/ot eval
--- NOTE | 2016-10-18 11:03 | CT ---
PROCEDURE: CT HEAD WITHOUT CONTRAST. HISTORY: code star hit head COMPARISON: Comparison is made to the previous study dated 01/27/2015 TECHNIQUE: Axial computed tomography images were obtained through the head/brain without intravenous contrast. Radiation dose: Total exam DLP = 381.46 mGy-cm. This CT exam was performed using one or more of the following dose reduction techniques: Automated exposure control, adjustment of the mA and/or kV according to patient size, and/or use of iterative reconstruction technique. FINDINGS: HEMORRHAGE: No intracranial hemorrhage. BRAIN: No mass effect or edema. Moderate atrophy and moderate chronic microvascular white matter ischemic disease are again noted. VENTRICLES: Unremarkable. No hydrocephalus. CALVARIUM: Unremarkable. PARANASAL SINUSES: [id number] mucosal thickening in the ethmoid sinuses is noted. MASTOID AIR CELLS: Unremarkable as visualized. No inflammatory changes. OTHER FINDINGS: None. IMPRESSION: No evidence of acute intracranial hemorrhage intracranial collection mass effect or midline shift. Moderate atrophy and moderate chronic microvascular ischemic disease again noted. No significant interval change since the previous exam.
--- NOTE | 2016-10-18 11:28 | PN ---
DATE: 10/18/2016 LOCATION: 567. This is an 86-year-old male seen and examined on rounds without significant clinical changes. No rep orted active bleeding. Was to be scheduled for head CAT scan this morning. Had abdominal, pelvic an d chest CAT scan 2 days ago. Report is seen with mild to severe right hydronephrosis with markedly e nlarged prostate. The patient tolerated oral intake somewhat okay and no nausea or vomiting. The entire chart is reviewed, including but not limited to the most recent lab and radiology study re sults, current and previous medication lists, current and the previous medical events, allergy to med ication list discussed with the staff on the floor. Today's labs showed leukocytosis of 20.8 with low hemoglobin 9.6, low hematocrit 29.3 with normal deedee telet count and low sodium of 131 and low potassium 3.3 with increased BUN to 22, but normal creatini ne with elevated blood glucose level to 185 and low calcium 7.1, low magnesium of 1.5 with low albumi n 2.4 and low total protein 5.7. PHYSICAL EXAMINATION: GENERAL: An 86-year-old male, awake, alert. VITAL SIGNS: Afebrile with pulse of 72, respiratory rate 20-22 with blood pressure of 160/76. HEENT: Showed pale, dry oral mucoid membrane. Nonicteric sclerae. LUNGS: Few scattered crepitations, decreased air entry at bases. HEART: Positive S1 and S2. ABDOMEN: Soft with mild generalized tenderness. No mass or organomegaly. No rebound tenderness or guarding. EXTREMITIES: Lower extremities with edematous changes. NEUROLOGIC: No reported new neurologic deficits, sensory or motor despite the patient's statement of feeling dizzy in the bathroom and hitting his head for which a CAT scan of that the head was schedul ed as code was called earlier. IMPRESSION: 1. Diverticulosis with left-sided colitis, pathology report still pending. 2. Abnormal CAT scan of the abdomen and the pelvis. 3. Prostatic hypertrophy, pathology report still pending. 4. Anemia, most likely secondary to above. 5. Known history of, but not limited to, hypertension, urinary retention with benign prostatic hyper trophy, patient is post-cystoscopy. 6. Electrolyte imbalance. SUGGESTION: 1. Continue current management. 2. If there subsequent drop of hemoglobin and hematocrit, we may consider upper endoscopy due to the patient's clinical status. Justin Ponce MD cc: 14 TT: 10/18/2016 11:27:40 Confirmation # [id number] Dictation # [id number] rn
[2016-10-18] MEDS: Dorzolamide 2% Opht Sol 10ml OU SCH ×3 (12:20→18:16)
[2016-10-18] MEDS: Pantoprazole 40 mg EC Tab PO SCH (12:23)
[2016-10-18] MEDS: Saccharomyces Boulardi 250 mg Cap PO SCH ×2 (12:23→18:12)
[2016-10-18] MEDS: Magnesium Sulfate 1 gm in D5W 1 GM/100 ML BAG IVPB SCH ×2 (12:24→13:55)
--- NOTE | 2016-10-18 12:30 | RAD ---
PROCEDURE: Radiographs of the pelvis and bilateral hips HISTORY: code star fall to ground COMPARISON: None. FINDINGS: BONES: Pelvis: Unremarkable. Right hip:Unremarkable. Left hip:Unremarkable. JOINTS: Right hip: Moderate osteoarthritic changes. Left hip: Moderate osteoarthritic changes. Sacroiliac Joints: Unremarkable. Pubic symphysis: Unremarkable. SOFT TISSUES: Nair catheter seen extending to the pelvis. OTHER FINDINGS: None. IMPRESSION: No evidence of acute fracture or dislocation. Moderate osteoarthritic changes.
[2016-10-18] MEDS ORDERED: Magnesium Sulfate 1 gm in D5W 1 GM/100 ML BAG IVPB ONE (13:23)
--- NOTE | 2016-10-18 16:54 | CP.PCM.DIS ---
<Tavares Donald - Last Filed: 10/18/16 17:19> Provider - Provider Date of Admission: 10/09/16 16:52 Attending physician: Chris Espinoza DO Consults: Consults 1. GI- Kris 2. Sx- arago 3. Heme/onc- Tad 4. Palliative- Obradovic 5. Urology- Hosay 6. ID- Kelsey Time Spent in preparation of Discharge (in minutes): 45 Hospital Course - Lab Results Lab Results: Micro Results 10/15/16 13:58 Blood Blood Culture - Preliminary NO GROWTH AFTER 3 DAYS 10/15/16 13:58 Blood Blood Culture - Preliminary NO GROWTH AFTER 3 DAYS 10/15/16 14:55 Urine Urine Culture - Final No Growth (<1,000 CFU/ML) 10/09/16 22:15 Blood-Venous Blood Culture - Final NO GROWTH AFTER 5 DAYS 10/09/16 22:15 Blood-Venous Gram Stain - Final TEST NOT PERFORMED 10/09/16 22:15 Blood-Venous Blood Culture - Final NO GROWTH AFTER 5 DAYS 10/09/16 22:15 Blood-Venous Gram Stain - Final TEST NOT PERFORMED 10/11/16 13:30 Urine Urine Culture - Final Enterococcus Faecalis Most Recent Lab Values WBC 20.8 K/uL (4.8-10.8) H 10/18/16 07:52 RBC 3.62 Mil/uL (4.40-5.90) L 10/18/16 07:52 Hgb 9.6 g/dL (12.0-18.0) L 10/18/16 07:52 Hct 29.3 % (35.0-51.0) L 10/18/16 07:52 MCV 80.8 fL (80.0-94.0) 10/18/16 07:52 MCH 26.4 pg (27.0-31.0) L 10/18/16 07:52 MCHC 32.7 g/dL (33.0-37.0) L 10/18/16 07:52 RDW 15.3 % (11.5-14.5) H 10/18/16 07:52 Plt Count 349 K/uL (130-400) 10/18/16 07:52 MPV 8.2 fL (7.2-11.7) 10/18/16 07:52 Neut % (Auto) 80.5 % (50.0-75.0) H 10/18/16 07:52 Lymph % (Auto) 8.4 % (20.0-40.0) L 10/18/16 07:52 [place] % (Auto) 9.6 % (0.0-10.0) 10/18/16 07:52 Eos % (Auto) 1.0 % (0.0-4.0) 10/18/16 07:52 Baso % (Auto) 0.5 % (0.0-2.0) 10/18/16 07:52 Neut # 16.8 K/uL (1.8-7.0) H 10/18/16 07:52 Lymph # 1.7 K/uL (1.0-4.3) 10/18/16 07:52 [place] # 2.0 K/uL (0.0-0.8) H 10/18/16 07:52 Eos # 0.2 K/uL (0.0-0.7) 10/18/16 07:52 Baso # 0.1 K/uL (0.0-0.2) 10/18/16 07:52 Neutrophils % (Manual) 85 % (50-75) H 10/18/16 07:52 Lymphocytes % (Manual) 6 % (20-40) L 10/18/16 07:52 Monocytes % (Manual) 9 % (0-10) 10/18/16 07:52 Eosinophils % (Manual) 1 % (0-4) 10/17/16 07:00 Basophils % (Manual) 1 % (0-2) 10/15/16 11:56 Toxic Granulation Present 10/12/16 07:18 Platelet Estimate Normal (NORMAL) 10/18/16 07:52 Giant Platelets Present 10/15/16 11:56 Polychromasia Slight 10/12/16 07:18 Hypochromasia (manual) Slight 10/18/16 07:52 Poikilocytosis (manual Slight 10/18/16 07:52 Anisocytosis (manual) Slight 10/18/16 07:52 Target Cells Slight 10/11/16 08:05 Ovalocytes Slight 10/15/16 11:56 [place]om Cells Slight 10/15/16 11:56 ESR 70 mm/hr (0-15) H 10/17/16 07:00 PT 15.4 SECONDS (9.7-12.2) H 10/09/16 21:50 INR 1.3 10/09/16 21:50 APTT 29 SECONDS (21-34) 10/09/16 21:50 Sodium 131 mmol/L (132-148) L 10/18/16 07:52 Potassium 3.3 mmol/L (3.6-5.2) L 10/18/16 07:52 Chloride 100 mmol/L (98-107) 10/18/16 07:52 Carbon Dioxide 22 mmol/L (22-30) 10/18/16 07:52 Anion Gap 12 (10-20) 10/18/16 07:52 BUN 22 mg/dL (9-20) H 10/18/16 07:52 Creatinine 0.8 MG/DL (0.8-1.5) 10/18/16 07:52 Est GFR ( Amer) > 60 10/18/16 07:52 Est GFR (Non-Af Amer) > 60 10/18/16 07:52 POC Glucose (mg/dL) 381 mg/dL (65-110) H 10/18/16 16:12 Random Glucose 170 mg/dL (75-110) H 10/18/16 07:52 Hemoglobin A1c 6.6 % (4.2-6.5) H 10/10/16 08:48 Calcium 7.1 mg/dl (8.6-10.4) L 10/18/16 07:52 Phosphorus 3.2 mg/dL (2.5-4.5) 10/18/16 07:52 Magnesium 1.5 mg/dL (1.6-2.3) L 10/18/16 07:52 Iron 48 ug/dL (49-181) L 10/11/16 08:05 TIBC 189 ug/dL (250-450) L 10/11/16 08:05 % Saturation 26 (20-55) 10/11/16 08:05 Ferritin 179.0 ng/mL 10/11/16 08:05 Total Bilirubin 0.5 mg/dL (0.2-1.3) 10/18/16 07:52 AST 19 U/L (17-59) 10/18/16 07:52 ALT 21 U/L (21-72) 10/18/16 07:52 Alkaline Phosphatase 63 U/L (38-126) 10/18/16 07:52 Lactate Dehydrogenase 414 U/L (313-618) 10/17/16 07:00 C-React Prot High Sens > 15.00 mg/L (1.00-3.00) H 10/17/16 07:00 Total Protein 5.7 g/dL (6.3-8.3) L 10/18/16 07:52 Albumin 2.4 g/dL (3.5-5.0) L 10/18/16 07:52 Globulin 3.3 gm/dL (2.2-3.9) 10/18/16 07:52 Albumin/Globulin Ratio 0.7 (1.0-2.1) L 10/18/16 07:52 Lipase 23 U/L (23-300) 10/09/16 12:04 Carcinoembryonic Ag 0.9 ng/mL (0-3.0) 10/11/16 13:16 Prostate Specific Ag 216 ng/mL (0.00-4.0) H 10/10/16 08:48 Procalcitonin 0.06 NG/ML (0.19-0.49) L 10/16/16 09:06 Urine Color Yellow (YELLOW) 10/09/16 12:24 Urine Clarity Hazy (Clear) 10/09/16 12:24 Urine pH 5.0 (5.0-8.0) 10/09/16 12:24 Ur Specific [place] 1.011 (1.003-1.030) 10/09/16 12:24 Urine Protein Negative mg/dL (NEGATIVE) 10/09/16 12:24 Urine Glucose (UA) Normal mg/dL (Normal) 10/09/16 12:24 Urine Ketones Negative mg/dL (NEGATIVE) 10/09/16 12:24 Urine Blood 1+ (NEGATIVE) H 10/09/16 12:24 Urine Nitrate Negative (NEGATIVE) 10/09/16 12:24 Urine Bilirubin Negative (NEGATIVE) 10/09/16 12:24 Urine Urobilinogen Normal mg/dL (0.2-1.0) 10/09/16 12:24 Ur Leukocyte Esterase 1+ Crispin/uL (Negative) H 10/09/16 12:24 Urine WBC (Auto) 13 /hpf (0-5) H 10/09/16 12:24 Urine RBC (Auto) 14 /hpf (0-3) H 10/09/16 12:24 Ur Squamous Epith Cells 13 /hpf (0-5) H 10/09/16 12:24 Amorphous Sediment Rare /ul (<OCC) H 10/09/16 12:24 Urine Bacteria Occ (<OCC) H 10/09/16 12:24 Vancomycin Trough 7.0 ug/mL (5.0-10.0) 10/14/16 11:33 C. difficile Ag & Toxin Negative (NEGATIVE) 10/16/16 20:35 - Hospital Course Hospital Course: Attending: Dr. Jaffe Admit date: 10-09-16 DC date: 10-18-16 DC diagnoses: please see below Consults 1. Kris 2. Viacna 3. Tad 4. Vance 5. Kelsey 6. Ashley Procedures: s/p cystoscopy s/p colonoscopy and biopsy Pt did have code star called while in hospital HPI: see h/p Lab data: see lab section Hospital course Patient is a 86 year old male with past medical hx of HTN and DM who presents with complaint of abdominal pain. The patient was brought to the ED with his by a friend. Per patient, he has been having 10/10 lower abdominal pain for 4 days. He described the pain as pressure-like and constant. Patient states that he did not try taking any medications at home for the pain. His last bowel movement was 3 days ago and was normal. Denies bloody stool or changes in bowel movements. Patient also denies hematuria and dysuria. When asked if he has difficulty urinating he denies hematuria, dysuria, incontinence , and hesitation. Patient had prostatectomy in 1995 but he denies history of prostate cancer and states that he had the procedure to remove a mass. Patient can not recall the name of his urologist and states that he never followed up after the surgery. The patient denies fever, chills, nausea, vomiting, chest pain, palpitations, cough, recent weight loss, headache, and focal deficits. This is an 86 yo male with past medical hx of DM, prostate resection, HTN presenting with abdominal pain x 4 days. 1. Prostate mass * Urology (Dr. Caruso) on board-->help appreciated * Heme-onc (Dr. Mishra) on board-->help appreciated * Patient has coude catheter in place, not to be removed. will need follow-up PSA and follow-up outpatient. * CT Abdomen/Pelvis (10/09/16): Small right pleural effusion and associated consolidation. Small perihepatic ascites. High-density material within the gallbladder presumed to reflect sludge and gallstones. Asymmetric questionable wall thickening involving the nondependent portion of the gallbladder. Correlate clinically for recent outside imaging to exclude possibility of vicarious excretion of contrast. 9 mm indeterminate right adrenal gland nodule. 1.3 cm left adrenal gland nodule, likely adenoma. Moderate bilateral hydroureteronephrosis. No obstructing calculus identified. Bilateral renal cysts. Enlarged heterogeneous and markedly irregular appearance of the prostate gland worrisome for prostate cancer. Recommend correlation with PSA and HUBER. Question gastric wall thickening however the stomach is decompressed and cannot be adequately evaluated. Cecal wall and terminal ileum appear thickened ; correlate clinically for infectious or inflammatory etiologies. 4.8 cm segment of severe wall thickening/narrowing of the rectosigmoid colon worrisome for malignant neoplasm. Recommend clinical correlation and colonoscopy when clinically feasible. Scattered prominent mesenteric and retroperitoneal lymph nodes. Sclerotic region involving the T11 vertebral body and L3 vertebral body. Giving concern for possibility of prostate cancer, recommend further evaluation with nuclear medicine bone scan. Additional findings as above. * pt is s/p cystoscopy with dilation * will ultimately need prostate biopsy * pt placed on telemetry in hospital * code star called on day of discharge, head ct negative and hip x ray negative 2. Acute Renal Insufficiency * Monitor BUN/Cr * Patient has coude catheter in place * Urology (Dr. Caruso) on board-->help appreciated * off Metformin 3. Hydroureteronephrosis * Urology (Dr. Caruso) on board help appreciated * CT Abdomen/Pelvis (10/09/16): Small right pleural effusion and associated consolidation. Small perihepatic ascites. High-density material within the gallbladder presumed to reflect sludge and gallstones. Asymmetric questionable wall thickening involving the nondependent portion of the gallbladder. Correlate clinically for recent outside imaging to exclude possibility of vicarious excretion of contrast. 9 mm indeterminate right adrenal gland nodule. 1.3 cm left adrenal gland nodule, likely adenoma. Moderate bilateral hydroureteronephrosis. No obstructing calculus identified. Bilateral renal cysts. Enlarged heterogeneous and markedly irregular appearance of the prostate gland worrisome for prostate cancer. Recommend correlation with PSA and HUBER. Question gastric wall thickening however the stomach is decompressed and cannot be adequately evaluated. Cecal wall and terminal ileum appear thickened ; correlate clinically for infectious or inflammatory etiologies. 4.8 cm segment of severe wall thickening/narrowing of the rectosigmoid colon worrisome for malignant neoplasm. Recommend clinical correlation and colonoscopy when clinically feasible. Scattered prominent mesenteric and retroperitoneal lymph nodes. Sclerotic region involving the T11 vertebral body and L3 vertebral body. Giving concern for possibility of prostate cancer, recommend further evaluation with nuclear medicine bone scan. Additional findings as above * Likely secondary to prostate mass obstruction. PSA elevated 216. * continue to monitor BUN/CR * Coude catheter in place 4. Urinary Tract Infection * 10/11/16 Enterococcus sensitive to macrobid, tigecycline, and Vancomycin * changed to tigecycline 50 q 12 * pt will need tigecycline and flagyl for 6 additional days * ID Dr. Cole. recs appreciated 5. Colitis * GI (Dr. Ponce) on board-->help appreciated * Surgery (Dr. Coley) on board-->help appreciated-->signed off * Colonoscopy (10/11/16): nonbleeding internal hemorrhoids, moderate diverticulosis, no evidence of diverticular bleeding, congested mucosa of distal descending mucosa, stool in colon-->Patient to have repeat colonoscopy in 5 years. Patient to follow-up with Dr. Ponce in office in 5 weeks. Recommends Analpram HC cream 2.5% externally BID for 10 weeks. * Pathology: Fragments of colonic mucosa with mild chronic inflammation and reactive changes * CT Abdomen/Pelvis (10/09/16): Small right pleural effusion and associated consolidation. Small perihepatic ascites. High-density material within the gallbladder presumed to reflect sludge and gallstones. Asymmetric questionable wall thickening involving the nondependent portion of the gallbladder. Correlate clinically for recent outside imaging to exclude possibility of vicarious excretion of contrast. 9 mm indeterminate right adrenal gland nodule. 1.3 cm left adrenal gland nodule, likely adenoma. Moderate bilateral hydroureteronephrosis. No obstructing calculus identified. Bilateral renal cysts. Enlarged heterogeneous and markedly irregular appearance of the prostate gland worrisome for prostate cancer. Recommend correlation with PSA and HUBER. Question gastric wall thickening however the stomach is decompressed and cannot be adequately evaluated. Cecal wall and terminal ileum appear thickened ; correlate clinically for infectious or inflammatory etiologies. 4.8 cm segment of severe wall thickening/narrowing of the rectosigmoid colon worrisome for malignant neoplasm. Recommend clinical correlation and colonoscopy when clinically feasible. Scattered prominent mesenteric and retroperitoneal lymph nodes. Sclerotic region involving the T11 vertebral body and L3 vertebral body. Giving concern for possibility of prostate cancer, recommend further evaluation with nuclear medicine bone scan. Additional findings as above * Flagyl 500mg IV Q 8 hours (active from -10/14/16); we restarted flagyl and he will continue for additional 6 days 6. Hypertension * controlled, continue to monitor * Hydralazine 10mg IV Q 6hours PRN SBP>160 * continue Lisinopril 10mg Po daily * Coreg 25mg PO bid * continue asa daily 7. Diabetes Mellitus * HgA1C 6.6 * Accuchecks ACHS * ISS * Hold home metformin due to SHANNAN * Crestor 5mg PO qHS * Lisinopril 10mg Po daily * asa 81 daily * lantus 10 HS 9. Anemia * Monitor H/H * GI (Dr. Ponce) on board--> pt does not need endoscopy inpatient * Colonoscopy (10/11/16): nonbleeding internal hemorrhoids, moderate diverticulosis, no evidence of diverticular bleeding, congested mucosa of distal descending mucosa, stool in colon-->Patient to have repeat colonoscopy in 5 years. Patient to follow-up with Dr. Ponce in office in 5 weeks. Recommends Analpram HC cream 2.5% externally BID for 10 weeks. * Pathology: Fragments of colonic mucosa with mild chronic inflammation and reactive changes 10. Pleural effusion * CT- small right pleural effusion and associated consolidation * Duonebs 3ml INH q6h MOISES * 2L NC O2 as needed * kirkpatrick scan of chest abdomen pelvis pending 11. Leukocytosis * 10/09/16 Urine culture contaminated * Blood cultures (10/09/16): no growth after 5 days * Urine culture (10/11/16): enterococcus-->sensitive to tigeyclcine, macrobid, and vancomycin * Monitor white count, which had been uptrending; trending down as of today * we are repeating blood and urine cultures; repeat blood cultures negative. * ID consult. Dr. Cole. recs appreciated. * procal negative * will discuss with heme/onc possible sources of leukocytosis * we will check for c diff * pt will need pet scan/bone scan as outpatient 12. GI/DVT * Aspirin 81mg Po daily * reglan 5 q 8 MOISES * protonix 40 daily * continue heparin 5000 q 12 * pt is full code and POLST in chart Discharge meds: 1. duonebs 2. asa 3. coreg 4. b12 5. lantus 6. iss 7. lisinopril 8. reglan 9. flagyl 10. protonix 11. crestor 12. florastor 13. tygecil DC instructions Please return if condition worsens. Pt is medically stable for discharge. DC to [facility]. Rx for tigecycline in chart. Pt to continue po flagyl and IV tigecycline. - Date & Time of H&P Date of H&P: 10/09/16 Time of H&P: 18:08 Discharge Exam - Head Exam Head Exam: ATRAUMATIC (no lesions or echymosis or wounds), NORMOCEPHALIC - Eye Exam Eye Exam: EOMI - ENT Exam ENT Exam: Mucous Membranes Moist - Neck Exam Neck exam: Full Rom, Normal Inspection - Respiratory Exam Respiratory Exam: NORMAL BREATHING PATTERN, UNREMARKABLE - Cardiovascular Exam Cardiovascular Exam: +S1, +S2 - GI/Abdominal Exam GI & Abdominal Exam: Normal Bowel Sounds - Extremities Exam Extremities exam: full ROM, normal inspection - Back Exam Back exam: NORMAL INSPECTION - Neurological Exam Neurological exam: Alert, Oriented x3 - Psychiatric Exam Psychiatric exam: Normal Affect, Normal Mood - Skin Skin Exam: Dry, Intact, Normal Color, Warm Discharge Plan - Discharge Medications Prescriptions: RX: Lisinopril [Zestril] 20 mg PO DAILY #30 tablet Metronidazole [Flagyl] 500 mg PO Q8 #18 tablet RX: Tigecycline [Tygacil] 50 mg IV Q12 #6 vial - Follow Up Plan Condition: STABLE Disposition: REHAB FACILITY/REHAB UNIT Instructions: Renal Failure Diet (DC), Infectious Colitis (GEN) Additional Instructions: FOLLOW UP WITH DR CARUSO IN 2 WEEKS . PT WILL BE TRANSFERRED TO [facility] WITH [facility] . Referrals: Yung Caruso Jr., MD [Staff Provider] - <Aleyda Jaffe V - Last Filed: 01/15/17 23:52> Provider - Provider Date of Admission: 10/09/16 16:52 Attending physician: Chris Espinoza [facility] Hospital Course - Lab Results Lab Results: Micro Results 10/15/16 13:58 Blood Blood Culture - Final NO GROWTH AFTER 5 DAYS 10/15/16 13:58 Blood Gram Stain - Final TEST NOT PERFORMED 10/15/16 13:58 Blood Blood Culture - Final NO GROWTH AFTER 5 DAYS 10/15/16 13:58 Blood Gram Stain - Final TEST NOT PERFORMED 10/15/16 14:55 Urine Urine Culture - Final No Growth (<1,000 CFU/ML) 10/09/16 22:15 Blood-Venous Blood Culture - Final NO GROWTH AFTER 5 DAYS 10/09/16 22:15 Blood-Venous Gram Stain - Final TEST NOT PERFORMED 10/09/16 22:15 Blood-Venous Blood Culture - Final NO GROWTH AFTER 5 DAYS 10/09/16 22:15 Blood-Venous Gram Stain - Final TEST NOT PERFORMED 10/11/16 13:30 Urine Urine Culture - Final Enterococcus Faecalis Most Recent Lab Values WBC 16.7 K/uL (4.8-10.8) H 10/19/16 13:54 RBC 3.65 Mil/uL (4.40-5.90) L 10/19/16 13:54 Hgb 9.7 g/dL (12.0-18.0) L 10/19/16 13:54 Hct 29.6 % (35.0-51.0) L 10/19/16 13:54 MCV 81.1 fL (80.0-94.0) 10/19/16 13:54 MCH 26.6 pg (27.0-31.0) L 10/19/16 13:54 MCHC 32.8 g/dL (33.0-37.0) L 10/19/16 13:54 RDW 15.8 % (11.5-14.5) H 10/19/16 13:54 Plt Count 364 K/uL (130-400) 10/19/16 13:54 MPV 8.8 fL (7.2-11.7) 10/19/16 13:54 Neut % (Auto) 72.3 % (50.0-75.0) 10/19/16 13:54 Lymph % (Auto) 14.3 % (20.0-40.0) L 10/19/16 13:54 [place] % (Auto) 10.1 % (0.0-10.0) H 10/19/16 13:54 Eos % (Auto) 2.2 % (0.0-4.0) 10/19/16 13:54 Baso % (Auto) 1.1 % (0.0-2.0) 10/19/16 13:54 Neut # 12.1 K/uL (1.8-7.0) H 10/19/16 13:54 Lymph # 2.4 K/uL (1.0-4.3) 10/19/16 13:54 [place] # 1.7 K/uL (0.0-0.8) H 10/19/16 13:54 Eos # 0.4 K/uL (0.0-0.7) 10/19/16 13:54 Baso # 0.2 K/uL (0.0-0.2) 10/19/16 13:54 Neutrophils % (Manual) 85 % (50-75) H 10/18/16 07:52 Lymphocytes % (Manual) 6 % (20-40) L 10/18/16 07:52 Monocytes % (Manual) 9 % (0-10) 10/18/16 07:52 Eosinophils % (Manual) 1 % (0-4) 10/17/16 07:00 Basophils % (Manual) 1 % (0-2) 10/15/16 11:56 Toxic Granulation Present 10/12/16 07:18 Platelet Estimate Normal (NORMAL) 10/18/16 07:52 Giant Platelets Present 10/15/16 11:56 Polychromasia Slight 10/12/16 07:18 Hypochromasia (manual) Slight 10/18/16 07:52 Poikilocytosis (manual Slight 10/18/16 07:52 Anisocytosis (manual) Slight 10/18/16 07:52 Target Cells Slight 10/11/16 08:05 Ovalocytes Slight 10/15/16 11:56 [place] Cells Slight 10/15/16 11:56 ESR 70 mm/hr (0-15) H 10/17/16 07:00 PT 15.4 SECONDS (9.7-12.2) H 10/09/16 21:50 INR 1.3 10/09/16 21:50 APTT 29 SECONDS (21-34) 10/09/16 21:50 Sodium 132 mmol/L (132-148) 10/19/16 13:54 Potassium 3.5 mmol/L (3.6-5.2) L 10/19/16 13:54 Chloride 99 mmol/L (98-107) 10/19/16 13:54 Carbon Dioxide 23 mmol/L (22-30) 10/19/16 13:54 Anion Gap 14 (10-20) 10/19/16 13:54 BUN 24 mg/dL (9-20) H 10/19/16 13:54 Creatinine 0.8 MG/DL (0.8-1.5) 10/19/16 13:54 Est GFR ( Amer) > 60 10/19/16 13:54 Est GFR (Non-Af Amer) > 60 10/19/16 13:54 POC Glucose (mg/dL) 248 mg/dL (65-110) H 10/19/16 16:13 Random Glucose 225 mg/dL (75-110) H 10/19/16 13:54 Hemoglobin A1c 6.6 % (4.2-6.5) H 10/10/16 08:48 Calcium 7.4 mg/dl (8.6-10.4) L 10/19/16 13:54 Phosphorus 3.2 mg/dL (2.5-4.5) 10/18/16 07:52 Magnesium 1.4 mg/dL (1.6-2.3) L 10/19/16 13:54 Iron 48 ug/dL (49-181) L 10/11/16 08:05 TIBC 189 ug/dL (250-450) L 10/11/16 08:05 % Saturation 26 (20-55) 10/11/16 08:05 Ferritin 179.0 ng/mL 10/11/16 08:05 Total Bilirubin < 0.1 mg/dL (0.2-1.3) L 10/19/16 13:54 AST 18 U/L (17-59) 10/19/16 13:54 ALT 28 U/L (21-72) 10/19/16 13:54 Alkaline Phosphatase 63 U/L (38-126) 10/19/16 13:54 Lactate Dehydrogenase 414 U/L (313-618) 10/17/16 07:00 C-React Prot High Sens > 15.00 mg/L (1.00-3.00) H 10/17/16 07:00 Total Protein 5.6 g/dL (6.3-8.3) L 10/19/16 13:54 Albumin 2.2 g/dL (3.5-5.0) L 10/19/16 13:54 Globulin 3.4 gm/dL (2.2-3.9) 10/19/16 13:54 Albumin/Globulin Ratio 0.6 (1.0-2.1) L 10/19/16 13:54 Lipase 23 U/L (23-300) 10/09/16 12:04 Carcinoembryonic Ag 0.9 ng/mL (0-3.0) 10/11/16 13:16 Prostate Specific Ag 216 ng/mL (0.00-4.0) H 10/10/16 08:48 Procalcitonin 0.06 NG/ML (0.19-0.49) L 10/16/16 09:06 Urine Color Yellow (YELLOW) 10/09/16 12:24 Urine Clarity Hazy (Clear) 10/09/16 12:24 Urine pH 5.0 (5.0-8.0) 10/09/16 12:24 Ur Specific [place] 1.011 (1.003-1.030) 10/09/16 12:24 Urine Protein Negative mg/dL (NEGATIVE) 10/09/16 12:24 Urine Glucose (UA) Normal mg/dL (Normal) 10/09/16 12:24 Urine Ketones Negative mg/dL (NEGATIVE) 10/09/16 12:24 Urine Blood 1+ (NEGATIVE) H 10/09/16 12:24 Urine Nitrate Negative (NEGATIVE) 10/09/16 12:24 Urine Bilirubin Negative (NEGATIVE) 10/09/16 12:24 Urine Urobilinogen Normal mg/dL (0.2-1.0) 10/09/16 12:24 Ur Leukocyte Esterase 1+ Crispin/uL (Negative) H 10/09/16 12:24 Urine WBC (Auto) 13 /hpf (0-5) H 10/09/16 12:24 Urine RBC (Auto) 14 /hpf (0-3) H 10/09/16 12:24 Ur Squamous Epith Cells 13 /hpf (0-5) H 10/09/16 12:24 Amorphous Sediment Rare /ul (<OCC) H 10/09/16 12:24 Urine Bacteria Occ (<OCC) H 10/09/16 12:24 Vancomycin Trough 7.0 ug/mL (5.0-10.0) 10/14/16 11:33 C. difficile Ag & Toxin Negative (NEGATIVE) 10/16/16 20:35 Attending/Attestation - Attestation I have personally seen and examined this patient.: Yes I have fully participated in the care of the patient.: Yes I have reviewed all pertinent clinical information, including history, physical exam and plan: Yes
--- NOTE | 2016-10-18 17:02 | CP.PCM.PN ---
Subjective - Date & Time of Evaluation Date of Evaluation: 10/18/16 Time of Evaluation: 08:00 - Subjective Subjective: Medical Attending Note (Addendum) In addition to discharge instructions in discharge summary, I have discussed with ID, Tigecycliine 50mg IV Q 12hours for 3 more days and Flagyl 500mg PO tid for 6 more days. Objective - Vital Signs/Intake and Output Vital Signs (last 24 hours): Temp Pulse Resp BP Pulse Ox 97.6 F 72 20 151/62 H 96 10/18/16 15:31 10/18/16 15:31 10/18/16 15:31 10/18/16 15:31 10/18/16 15:31 Intake and Output: 10/18/16 10/18/16 06:59 18:59 Intake Total 590 Output Total 1100 Balance -510 - Medications Medications: Current Medications Albuterol/Ipratropium (Duoneb 3 Mg/0.5 Mg (3 Ml) Ud) 3 ml INH RQ6 [facility] Last Admin: 10/18/16 14:25 Dose: Not Given Aspirin (Aspirin Chewable) 81 mg PO DAILY [facility] Last Admin: 10/18/16 14:15 Dose: 81 mg Carvedilol (Coreg) 25 mg PO BID [facility] Last Admin: 10/18/16 12:24 Dose: 25 mg Cyanocobalamin (Vitamin B12 1000 Mcg/Ml Inj) 1,000 mcg IM MWF [facility] Last Admin: 10/18/16 12:21 Dose: 1,000 mcg Dorzolamide HCl (Trusopt) 0 ml OU BID [facility] Last Admin: 10/18/16 12:21 Dose: 1 applic Gabapentin (Neurontin) 100 mg PO TID [facility] Heparin Sodium (Porcine) (Heparin) 5,000 units SC 12 [facility] Last Admin: 10/18/16 14:23 Dose: 5,000 units Hydralazine HCl (Apresoline) 10 mg IVP Q6H PRN PRN Reason: Systolic Blood Pressure Metronidazole (Flagyl) 250 mg in 50 mls @ 100 mls/hr IVPB Q8H [facility] Stop: 10/21/16 18:01 Last Admin: 10/18/16 12:24 Dose: 100 mls/hr Tigecycline 50 mg/ Sodium (Chloride) 100 mls @ 100 mls/hr IVPB Q12H [facility] Last Admin: 10/18/16 14:30 Dose: 100 mls/hr Insulin Glargine (Lantus) 10 unit SC HS [facility] Last Admin: 10/17/16 21:37 Dose: 10 u Insulin Human Regular (Novolin R) 0 unit SC [facility] PRN Reason: Protocol Last Admin: 10/18/16 16:29 Dose: 8 unit Latanoprost (Xalatan Opht) 0 ml OS HS [facility] Last Admin: 10/17/16 21:22 Dose: 1 ml Lisinopril (Zestril) 10 mg PO DAILY [facility] Last Admin: 10/18/16 12:23 Dose: 10 mg Metoclopramide HCl (Reglan) 5 mg IVP Q8 [facility] Last Admin: 10/18/16 14:15 Dose: 5 mg Pantoprazole Sodium (Protonix Ec Tab) 40 mg PO DAILY [facility] Last Admin: 10/18/16 12:23 Dose: 40 mg Rosuvastatin Calcium (Crestor) 5 mg PO HS [facility] Last Admin: 10/17/16 21:22 Dose: 5 mg Saccharomyces Boulardii (Florastor) 250 mg PO BID [facility] Last Admin: 10/18/16 12:23 Dose: 250 mg Timolol Maleate ([facility]) 0 drop OU BID [facility] Last Admin: 10/18/16 12:20 Dose: 1 applic - Labs Labs: 10/18/16 07:52 10/18/16 07:52 PT 15.4 SECONDS (9.7-12.2) H 10/09/16 21:50 INR 1.3 10/09/16 21:50 APTT 29 SECONDS (21-34) 10/09/16 21:50
[2016-10-18] MEDS: (Lantus) Insulin Glargine, Recombinant SC SCH (21:35)
[2016-10-18] MEDS: Latanoprost 2.5 ml Opht Soln OS SCH (21:37)
--- NOTE | 2016-10-18 22:19 | CP.PCM.PN ---
Subjective - Date & Time of Evaluation Date of Evaluation: 10/18/16 Time of Evaluation: 06:30 - Subjective Subjective: dictated Objective - Vital Signs/Intake and Output Vital Signs (last 24 hours): Temp Pulse Resp BP Pulse Ox 97.6 F 68 20 196/77 H 96 10/18/16 15:31 10/18/16 18:53 10/18/16 15:31 10/18/16 18:12 10/18/16 15:31 Intake and Output: 10/18/16 10/19/16 18:59 06:59 Intake Total 880 120 Output Total 1100 900 Balance -220 -780 - Medications Medications: Current Medications Albuterol/Ipratropium (Duoneb 3 Mg/0.5 Mg (3 Ml) Ud) 3 ml INH RQ6 [facility] Last Admin: 10/18/16 19:26 Dose: 3 ml Aspirin (Aspirin Chewable) 81 mg PO DAILY [facility] Last Admin: 10/18/16 14:15 Dose: 81 mg Carvedilol (Coreg) 25 mg PO BID [facility] Last Admin: 10/18/16 18:12 Dose: 25 mg Cyanocobalamin (Vitamin B12 1000 Mcg/Ml Inj) 1,000 mcg IM MWF [facility] Last Admin: 10/18/16 12:21 Dose: 1,000 mcg Dorzolamide HCl (Trusopt) 0 ml OU BID [facility] Last Admin: 10/18/16 18:16 Dose: 1 applic Gabapentin (Neurontin) 100 mg PO TID [facility] Heparin Sodium (Porcine) (Heparin) 5,000 units SC 12 [facility] Last Admin: 10/18/16 14:23 Dose: 5,000 units Hydralazine HCl (Apresoline) 10 mg IVP Q6H PRN PRN Reason: Systolic Blood Pressure Metronidazole (Flagyl) 250 mg in 50 mls @ 100 mls/hr IVPB Q8H [facility] Stop: 10/21/16 18:01 Last Admin: 10/18/16 18:16 Dose: 100 mls/hr Tigecycline 50 mg/ Sodium (Chloride) 100 mls @ 100 mls/hr IVPB Q12H [facility] Last Admin: 10/18/16 14:30 Dose: 100 mls/hr Insulin Glargine (Lantus) 10 unit SC HS [facility] Last Admin: 10/18/16 21:35 Dose: 10 u Insulin Human Regular (Novolin R) 0 unit SC ACHS [facility] PRN Reason: Protocol Last Admin: 10/18/16 21:19 Dose: Not Given Latanoprost (Xalatan Opht) 0 ml OS HS [facility] Last Admin: 10/18/16 21:37 Dose: 1 ml Lisinopril (Zestril) 20 mg PO DAILY [facility] Metoclopramide HCl (Reglan) 5 mg IVP Q8 [facility] Last Admin: 10/18/16 21:38 Dose: 5 mg Pantoprazole Sodium (Protonix Ec Tab) 40 mg PO DAILY [facility] Last Admin: 10/18/16 12:23 Dose: 40 mg Rosuvastatin Calcium (Crestor) 5 mg PO HS [facility] Last Admin: 10/18/16 21:37 Dose: 5 mg Saccharomyces Boulardii (Florastor) 250 mg PO BID [facility] Last Admin: 10/18/16 18:12 Dose: 250 mg Timolol Maleate (Timoptic 0.5% [facility]) 0 drop OU BID [facility] Last Admin: 10/18/16 18:16 Dose: 1 applic - Labs Labs: 10/18/16 07:52 10/18/16 07:52 PT 15.4 SECONDS (9.7-12.2) H 10/09/16 21:50 INR 1.3 10/09/16 21:50 APTT 29 SECONDS (21-34) 10/09/16 21:50
--- NOTE | 2016-10-18 22:56 | PN ---
DATE: 10/18/2016 SUBJECTIVE: The patient denies any diarrhea. He is feeling a little better. He has been on Tygacil and Flagyl. C. diff came out negative. PHYSICAL EXAMINATION: VITAL SIGNS: T-max is 97.6, pulse 72, blood pressure 151/62, respirations are 20. HEENT: Head is atraumatic, normocephalic. NECK: Supple. LUNGS: Clear. No crackles or rales present. Occasional wheeze. HEART: S1, S2 regular. ABDOMEN: Soft, nontender, no guarding, no rigidity present. EXTREMITIES: No edema, clubbing or cyanosis. He does have a Nair catheter. LABORATORY DATA: White count today was 20.8, hemoglobin 9.6, hematocrit 29.3, platelet count is 349. Sodium is 131, potassium is 3.3, chloride 100, CO2 is 22, creatinine is 0.8. The serology of C. di ff has been negative. Urine had shown WBC 13, RBC 14. He does have a Nair catheter and he has pros espinoza enlargement. His urine was growing enterococcus before, but on 10/15/2016 it has been negative, and 10/15/2016 blood cultures x 2 were negative. However, his white count was increasing; hence, we had started him on Tygacil covering the enterococcus as well as on Flagyl for the C. diff for possibl e Clostridium difficile. ASSESSMENT AND PLAN: The patient is clinically looking better, but numbers WBC still remains high so we will continue this. 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 He also had an x-ray of the hip and pelvis today, which shows no evidence of acute fr acture or dislocation, moderate osteoarthritic changes. So at this time, we will continue present tr eatment and he needs Tygacil 3 more days to complete a 1 week course and also on Flagyl and to contin ue those for 6 days. he does have leukocytosis, the etiology of which could be related to the hydronephrosis and he has a Nair catheter. He needs to follow with the urologist as outpatient. Yvonne Cole MD cc: [id number] TT: 10/18/2016 22:55:47 Confirmation # [id number] Dictation # [id number]
[2016-10-19] MEDS: Albuterol-Ipratrop 3 mg / 0.5 (3 ml) UD INH SCH ×2 (01:35→07:42)
[2016-10-19] MEDS: metroNIDAZOLE IV 250mg/50 ml 250 MG/50 ML BAG IVPB SCH ×3 (02:15→17:28)
[2016-10-19] MEDS: (Novolin R) Insulin Human Regular 100 units/ml vial SC SCH ×3 (07:30→17:17)
[2016-10-19] MEDS: Pantoprazole 40 mg EC Tab PO SCH (11:06)
[2016-10-19] MEDS: Dorzolamide 2% Opht Sol 10ml OU SCH ×2 (11:07→17:31)
[2016-10-19] MEDS: Saccharomyces Boulardi 250 mg Cap PO SCH ×2 (11:08→17:28)
[2016-10-19 14:01] LABS: BASO # 0.2 K/uL (0.0-0.2); BASO % 1.1 % (0.0-2.0); EOS # 0.4 K/uL (0.0-0.7); EOS % 2.2 % (0.0-4.0); HEMATOCRIT 29.6 % (35.0-51.0); LYMPH # 2.4 K/uL (1.0-4.3); LYMPH % 14.3 % (20.0-40.0); MEAN CELL VOLUME 81.1 fL (80.0-94.0); MEAN CORPUSCULAR HEMOGLOBIN 26.6 pg (27.0-31.0); MEAN CORPUSCULAR HGB CONC 32.8 g/dL (33.0-37.0); MEAN PLATELET VOLUME 8.8 fL (7.2-11.7); MONO # 1.7 K/uL (0.0-0.8); MONO % 10.1 % (0.0-10.0); RED CELL DISTRIBUTION WIDTH 15.8 % (11.5-14.5); WHITE BLOOD COUNT 16.7 K/uL (4.8-10.8)
[2016-10-19 14:29] LABS: CHLORIDE 99 mmol/L (98-107)
[2016-10-19 14:30] LABS: POTASSIUM 3.5 mmol/L (3.6-5.2); SODIUM 132 mmol/L (132-148)
[2016-10-19 14:32] LABS: ALB/GLOB RATIO 0.6 (1.0-2.1); ALKALINE PHOSPHATASE 63 U/L (38-126); AST/SGOT 18 U/L (17-59); BILIRUBIN,TOTAL < 0.1 mg/dL (0.2-1.3); BLOOD UREA NITROGEN 24 mg/dL (9-20); CARBON DIOXIDE 23 mmol/L (22-30); GFR AFRICAN-AMERICAN > 60; TOTAL PROTEIN 5.6 g/dL (6.3-8.3)
[2016-10-19 14:33] LABS: ALT/SGPT 28 U/L (21-72); CALCIUM 7.4 mg/dl (8.6-10.4); GLUCOSE,RANDOM 225 mg/dL (75-110); MAGNESIUM 1.4 mg/dL (1.6-2.3)
[2016-10-19] MEDS ORDERED: Potassium Chloride 20 mEq ER Tab PO ONE (15:15)
--- NOTE | 2016-10-19 15:40 | CP.PCM.DIS ---
<Tavares Donald - Last Filed: 10/19/16 15:47> Provider - Provider Date of Admission: 10/09/16 16:52 Attending physician: Chris Espinoza DO Consults: Consults 1. GI- Kris 2. Sx- arago 3. Heme/onc- Tad 4. Palliative- Obradovic 5. Urology- Hosay 6. ID- Kelsey Time Spent in preparation of Discharge (in minutes): 45 Hospital Course - Lab Results Lab Results: Micro Results 10/15/16 13:58 Blood Blood Culture - Preliminary NO GROWTH AFTER 4 DAYS 10/15/16 13:58 Blood Blood Culture - Preliminary NO GROWTH AFTER 4 DAYS 10/15/16 14:55 Urine Urine Culture - Final No Growth (<1,000 CFU/ML) 10/09/16 22:15 Blood-Venous Blood Culture - Final NO GROWTH AFTER 5 DAYS 10/09/16 22:15 Blood-Venous Gram Stain - Final TEST NOT PERFORMED 10/09/16 22:15 Blood-Venous Blood Culture - Final NO GROWTH AFTER 5 DAYS 10/09/16 22:15 Blood-Venous Gram Stain - Final TEST NOT PERFORMED 10/11/16 13:30 Urine Urine Culture - Final Enterococcus Faecalis Most Recent Lab Values WBC 16.7 K/uL (4.8-10.8) H 10/19/16 13:54 RBC 3.65 Mil/uL (4.40-5.90) L 10/19/16 13:54 Hgb 9.7 g/dL (12.0-18.0) L 10/19/16 13:54 Hct 29.6 % (35.0-51.0) L 10/19/16 13:54 MCV 81.1 fL (80.0-94.0) 10/19/16 13:54 MCH 26.6 pg (27.0-31.0) L 10/19/16 13:54 MCHC 32.8 g/dL (33.0-37.0) L 10/19/16 13:54 RDW 15.8 % (11.5-14.5) H 10/19/16 13:54 Plt Count 364 K/uL (130-400) 10/19/16 13:54 MPV 8.8 fL (7.2-11.7) 10/19/16 13:54 Neut % (Auto) 72.3 % (50.0-75.0) 10/19/16 13:54 Lymph % (Auto) 14.3 % (20.0-40.0) L 10/19/16 13:54 [place] % (Auto) 10.1 % (0.0-10.0) H 10/19/16 13:54 Eos % (Auto) 2.2 % (0.0-4.0) 10/19/16 13:54 Baso % (Auto) 1.1 % (0.0-2.0) 10/19/16 13:54 Neut # 12.1 K/uL (1.8-7.0) H 10/19/16 13:54 Lymph # 2.4 K/uL (1.0-4.3) 10/19/16 13:54 [place] # 1.7 K/uL (0.0-0.8) H 10/19/16 13:54 Eos # 0.4 K/uL (0.0-0.7) 10/19/16 13:54 Baso # 0.2 K/uL (0.0-0.2) 10/19/16 13:54 Neutrophils % (Manual) 85 % (50-75) H 10/18/16 07:52 Lymphocytes % (Manual) 6 % (20-40) L 10/18/16 07:52 Monocytes % (Manual) 9 % (0-10) 10/18/16 07:52 Eosinophils % (Manual) 1 % (0-4) 10/17/16 07:00 Basophils % (Manual) 1 % (0-2) 10/15/16 11:56 Toxic Granulation Present 10/12/16 07:18 Platelet Estimate Normal (NORMAL) 10/18/16 07:52 Giant Platelets Present 10/15/16 11:56 Polychromasia Slight 10/12/16 07:18 Hypochromasia (manual) Slight 10/18/16 07:52 Poikilocytosis (manual Slight 10/18/16 07:52 Anisocytosis (manual) Slight 10/18/16 07:52 Target Cells Slight 10/11/16 08:05 Ovalocytes Slight 10/15/16 11:56 Carver Cells Slight 10/15/16 11:56 ESR 70 mm/hr (0-15) H 10/17/16 07:00 PT 15.4 SECONDS (9.7-12.2) H 10/09/16 21:50 INR 1.3 10/09/16 21:50 APTT 29 SECONDS (21-34) 10/09/16 21:50 Sodium 132 mmol/L (132-148) 10/19/16 13:54 Potassium 3.5 mmol/L (3.6-5.2) L 10/19/16 13:54 Chloride 99 mmol/L (98-107) 10/19/16 13:54 Carbon Dioxide 23 mmol/L (22-30) 10/19/16 13:54 Anion Gap 14 (10-20) 10/19/16 13:54 BUN 24 mg/dL (9-20) H 10/19/16 13:54 Creatinine 0.8 MG/DL (0.8-1.5) 10/19/16 13:54 Est GFR ( Amer) > 60 10/19/16 13:54 Est GFR (Non-Af Amer) > 60 10/19/16 13:54 POC Glucose (mg/dL) 285 mg/dL (65-110) H 10/19/16 11:20 Random Glucose 225 mg/dL (75-110) H 10/19/16 13:54 Hemoglobin A1c 6.6 % (4.2-6.5) H 10/10/16 08:48 Calcium 7.4 mg/dl (8.6-10.4) L 10/19/16 13:54 Phosphorus 3.2 mg/dL (2.5-4.5) 10/18/16 07:52 Magnesium 1.4 mg/dL (1.6-2.3) L 10/19/16 13:54 Iron 48 ug/dL (49-181) L 10/11/16 08:05 TIBC 189 ug/dL (250-450) L 10/11/16 08:05 % Saturation 26 (20-55) 10/11/16 08:05 Ferritin 179.0 ng/mL 10/11/16 08:05 Total Bilirubin < 0.1 mg/dL (0.2-1.3) L 10/19/16 13:54 AST 18 U/L (17-59) 10/19/16 13:54 ALT 28 U/L (21-72) 10/19/16 13:54 Alkaline Phosphatase 63 U/L (38-126) 10/19/16 13:54 Lactate Dehydrogenase 414 U/L (313-618) 10/17/16 07:00 C-React Prot High Sens > 15.00 mg/L (1.00-3.00) H 10/17/16 07:00 Total Protein 5.6 g/dL (6.3-8.3) L 10/19/16 13:54 Albumin 2.2 g/dL (3.5-5.0) L 10/19/16 13:54 Globulin 3.4 gm/dL (2.2-3.9) 10/19/16 13:54 Albumin/Globulin Ratio 0.6 (1.0-2.1) L 10/19/16 13:54 Lipase 23 U/L (23-300) 10/09/16 12:04 Carcinoembryonic Ag 0.9 ng/mL (0-3.0) 10/11/16 13:16 Prostate Specific Ag 216 ng/mL (0.00-4.0) H 10/10/16 08:48 Procalcitonin 0.06 NG/ML (0.19-0.49) L 10/16/16 09:06 Urine Color Yellow (YELLOW) 10/09/16 12:24 Urine Clarity Hazy (Clear) 10/09/16 12:24 Urine pH 5.0 (5.0-8.0) 10/09/16 12:24 Ur Specific [place] 1.011 (1.003-1.030) 10/09/16 12:24 Urine Protein Negative mg/dL (NEGATIVE) 10/09/16 12:24 Urine Glucose (UA) Normal mg/dL (Normal) 10/09/16 12:24 Urine Ketones Negative mg/dL (NEGATIVE) 10/09/16 12:24 Urine Blood 1+ (NEGATIVE) H 10/09/16 12:24 Urine Nitrate Negative (NEGATIVE) 10/09/16 12:24 Urine Bilirubin Negative (NEGATIVE) 10/09/16 12:24 Urine Urobilinogen Normal mg/dL (0.2-1.0) 10/09/16 12:24 Ur Leukocyte Esterase 1+ Crispin/uL (Negative) H 10/09/16 12:24 Urine WBC (Auto) 13 /hpf (0-5) H 10/09/16 12:24 Urine RBC (Auto) 14 /hpf (0-3) H 10/09/16 12:24 Ur Squamous Epith Cells 13 /hpf (0-5) H 10/09/16 12:24 Amorphous Sediment Rare /ul (<OCC) H 10/09/16 12:24 Urine Bacteria Occ (<OCC) H 10/09/16 12:24 Vancomycin Trough 7.0 ug/mL (5.0-10.0) 10/14/16 11:33 C. difficile Ag & Toxin Negative (NEGATIVE) 10/16/16 20:35 - Hospital Course Hospital Course: Attending: Dr. Jaffe Admit date: 10-09-16 DC date: 10-18-16 DC diagnoses: please see below Consults 1. Kris 2. Vianca 3. Tad 4. Vance 5. Kelsey 6. Ashley Procedures: s/p cystoscopy s/p colonoscopy and biopsy Pt did have code star called while in hospital HPI: see h/p Lab data: see lab section Hospital course Patient is a 86 year old male with past medical hx of HTN and DM who presents with complaint of abdominal pain. The patient was brought to the ED with his by a friend. Per patient, he has been having 10/10 lower abdominal pain for 4 days. He described the pain as pressure-like and constant. Patient states that he did not try taking any medications at home for the pain. His last bowel movement was 3 days ago and was normal. Denies bloody stool or changes in bowel movements. Patient also denies hematuria and dysuria. When asked if he has difficulty urinating he denies hematuria, dysuria, incontinence , and hesitation. Patient had prostatectomy in 1995 but he denies history of prostate cancer and states that he had the procedure to remove a mass. Patient can not recall the name of his urologist and states that he never followed up after the surgery. The patient denies fever, chills, nausea, vomiting, chest pain, palpitations, cough, recent weight loss, headache, and focal deficits. This is an 86 yo male with past medical hx of DM, prostate resection, HTN presenting with abdominal pain x 4 days. 1. Prostate mass * Urology (Dr. Caruso) on board-->help appreciated * Heme-onc (Dr. Mishra) on board-->help appreciated * Patient has coude catheter in place, not to be removed. will need follow-up PSA and follow-up outpatient. * CT Abdomen/Pelvis (10/09/16): Small right pleural effusion and associated consolidation. Small perihepatic ascites. High-density material within the gallbladder presumed to reflect sludge and gallstones. Asymmetric questionable wall thickening involving the nondependent portion of the gallbladder. Correlate clinically for recent outside imaging to exclude possibility of vicarious excretion of contrast. 9 mm indeterminate right adrenal gland nodule. 1.3 cm left adrenal gland nodule, likely adenoma. Moderate bilateral hydroureteronephrosis. No obstructing calculus identified. Bilateral renal cysts. Enlarged heterogeneous and markedly irregular appearance of the prostate gland worrisome for prostate cancer. Recommend correlation with PSA and HUBER. Question gastric wall thickening however the stomach is decompressed and cannot be adequately evaluated. Cecal wall and terminal ileum appear thickened ; correlate clinically for infectious or inflammatory etiologies. 4.8 cm segment of severe wall thickening/narrowing of the rectosigmoid colon worrisome for malignant neoplasm. Recommend clinical correlation and colonoscopy when clinically feasible. Scattered prominent mesenteric and retroperitoneal lymph nodes. Sclerotic region involving the T11 vertebral body and L3 vertebral body. Giving concern for possibility of prostate cancer, recommend further evaluation with nuclear medicine bone scan. Additional findings as above. * pt is s/p cystoscopy with dilation * will ultimately need prostate biopsy * pt placed on telemetry in hospital * code star called on day of discharge, head ct negative and hip x ray negative * pt discharged to LTAC on 10-19-16 * electrolytes K and Mg were repleted on 10-19 2. Acute Renal Insufficiency * Monitor BUN/Cr * Patient has coude catheter in place * Urology (Dr. Caruso) on board-->help appreciated * off Metformin 3. Hydroureteronephrosis * Urology (Dr. Caruso) on board help appreciated * CT Abdomen/Pelvis (10/09/16): Small right pleural effusion and associated consolidation. Small perihepatic ascites. High-density material within the gallbladder presumed to reflect sludge and gallstones. Asymmetric questionable wall thickening involving the nondependent portion of the gallbladder. Correlate clinically for recent outside imaging to exclude possibility of vicarious excretion of contrast. 9 mm indeterminate right adrenal gland nodule. 1.3 cm left adrenal gland nodule, likely adenoma. Moderate bilateral hydroureteronephrosis. No obstructing calculus identified. Bilateral renal cysts. Enlarged heterogeneous and markedly irregular appearance of the prostate gland worrisome for prostate cancer. Recommend correlation with PSA and HUBER. Question gastric wall thickening however the stomach is decompressed and cannot be adequately evaluated. Cecal wall and terminal ileum appear thickened ; correlate clinically for infectious or inflammatory etiologies. 4.8 cm segment of severe wall thickening/narrowing of the rectosigmoid colon worrisome for malignant neoplasm. Recommend clinical correlation and colonoscopy when clinically feasible. Scattered prominent mesenteric and retroperitoneal lymph nodes. Sclerotic region involving the T11 vertebral body and L3 vertebral body. Giving concern for possibility of prostate cancer, recommend further evaluation with nuclear medicine bone scan. Additional findings as above * Likely secondary to prostate mass obstruction. PSA elevated 216. * continue to monitor BUN/CR * Coude catheter in place 4. Urinary Tract Infection * 10/11/16 Enterococcus sensitive to macrobid, tigecycline, and Vancomycin * changed to tigecycline 50 q 12 * pt will need tigecycline and flagyl for 6 additional days * ID Dr. Cole. recs appreciated 5. Colitis * GI (Dr. Ponce) on board-->help appreciated * Surgery (Dr. Coley) on board-->help appreciated-->signed off * Colonoscopy (10/11/16): nonbleeding internal hemorrhoids, moderate diverticulosis, no evidence of diverticular bleeding, congested mucosa of distal descending mucosa, stool in colon-->Patient to have repeat colonoscopy in 5 years. Patient to follow-up with Dr. Ponce in office in 5 weeks. Recommends Analpram HC cream 2.5% externally BID for 10 weeks. * Pathology: Fragments of colonic mucosa with mild chronic inflammation and reactive changes * CT Abdomen/Pelvis (10/09/16): Small right pleural effusion and associated consolidation. Small perihepatic ascites. High-density material within the gallbladder presumed to reflect sludge and gallstones. Asymmetric questionable wall thickening involving the nondependent portion of the gallbladder. Correlate clinically for recent outside imaging to exclude possibility of vicarious excretion of contrast. 9 mm indeterminate right adrenal gland nodule. 1.3 cm left adrenal gland nodule, likely adenoma. Moderate bilateral hydroureteronephrosis. No obstructing calculus identified. Bilateral renal cysts. Enlarged heterogeneous and markedly irregular appearance of the prostate gland worrisome for prostate cancer. Recommend correlation with PSA and HUBER. Question gastric wall thickening however the stomach is decompressed and cannot be adequately evaluated. Cecal wall and terminal ileum appear thickened ; correlate clinically for infectious or inflammatory etiologies. 4.8 cm segment of severe wall thickening/narrowing of the rectosigmoid colon worrisome for malignant neoplasm. Recommend clinical correlation and colonoscopy when clinically feasible. Scattered prominent mesenteric and retroperitoneal lymph nodes. Sclerotic region involving the T11 vertebral body and L3 vertebral body. Giving concern for possibility of prostate cancer, recommend further evaluation with nuclear medicine bone scan. Additional findings as above * Flagyl 500mg IV Q 8 hours (active from -10/14/16); we restarted flagyl and he will continue for additional 6 days 6. Hypertension * controlled, continue to monitor * Hydralazine 10mg IV Q 6hours PRN SBP>160 * continue Lisinopril 10mg Po daily * Coreg 25mg PO bid * continue asa daily 7. Diabetes Mellitus * HgA1C 6.6 * Accuchecks ACHS * ISS * Hold home metformin due to SHANNAN * Crestor 5mg PO qHS * Lisinopril 10mg Po daily * asa 81 daily * lantus 10 HS 9. Anemia * Monitor H/H * GI (Dr. Ponce) on board--> pt does not need endoscopy inpatient * Colonoscopy (10/11/16): nonbleeding internal hemorrhoids, moderate diverticulosis, no evidence of diverticular bleeding, congested mucosa of distal descending mucosa, stool in colon-->Patient to have repeat colonoscopy in 5 years. Patient to follow-up with Dr. Ponce in office in 5 weeks. Recommends Analpram HC cream 2.5% externally BID for 10 weeks. * Pathology: Fragments of colonic mucosa with mild chronic inflammation and reactive changes 10. Pleural effusion * CT- small right pleural effusion and associated consolidation * Duonebs 3ml INH q6h MOISES * 2L NC O2 as needed * kirkpatrick scan of chest abdomen pelvis pending 11. Leukocytosis * 10/09/16 Urine culture contaminated * Blood cultures (10/09/16): no growth after 5 days * Urine culture (10/11/16): enterococcus-->sensitive to tigeyclcine, macrobid, and vancomycin * Monitor white count, which had been uptrending; trending down as of today * we are repeating blood and urine cultures; repeat blood cultures negative. * ID consult. Dr. Cole. recs appreciated. * procal negative * will discuss with heme/onc possible sources of leukocytosis * we will check for c diff * pt will need pet scan/bone scan as outpatient 12. GI/DVT * Aspirin 81mg Po daily * reglan 5 q 8 MOISES * protonix 40 daily * continue heparin 5000 q 12 * pt is full code and POLST in chart Discharge meds: 1. duonebs inh q 6 2. asa 81 mg daily 3. coreg 25 mg bid 4. b12 1000mcg mwf im 5. lantus 10 units hs 6. iss novolin 7. lisinopril 20 mg daily 8. flagyl 500 po q 8- take additional 5 days 9. protonix 40 mg daily 10. crestor 5 mg Hs 11. florastor 250 po bid 12. tygecil 50 iv q 12 end date friday10-21-16 DC instructions Please return if condition worsens. Pt is medically stable for discharge. DC to LTAC. Rx for tigecycline in chart. Pt to continue po flagyl and IV tigecycline. - Date & Time of H&P Date of H&P: 10/09/16 Time of H&P: 18:08 Discharge Exam - Head Exam Head Exam: ATRAUMATIC (no lesions or echymosis or wounds), NORMOCEPHALIC - Eye Exam Eye Exam: EOMI - ENT Exam ENT Exam: Mucous Membranes Moist - Neck Exam Neck exam: Full Rom, Normal Inspection - Respiratory Exam Respiratory Exam: NORMAL BREATHING PATTERN, UNREMARKABLE - Cardiovascular Exam Cardiovascular Exam: REGULAR RHYTHM, +S1, +S2 - GI/Abdominal Exam GI & Abdominal Exam: Normal Bowel Sounds - Extremities Exam Extremities exam: full ROM, normal inspection - Neurological Exam Neurological exam: Alert, Oriented x3 - Psychiatric Exam Psychiatric exam: Normal Affect, Normal Mood - Skin Skin Exam: Dry, Intact, Normal Color, Warm Discharge Plan - Discharge Medications Prescriptions: RX: Lisinopril [Zestril] 20 mg PO DAILY #30 tablet Metronidazole [Flagyl] 500 mg PO Q8 #18 tablet RX: Tigecycline [Tygacil] 50 mg IV Q12 #6 vial - Follow Up Plan Condition: STABLE Disposition: REHAB FACILITY/REHAB UNIT Instructions: Renal Failure Diet (DC), Infectious Colitis (GEN) Additional Instructions: FOLLOW UP WITH DR CARUSO IN 2 WEEKS . PT WILL BE TRANSFERRED TO ALF WITH [facility] CATHE[facility] . Referrals: Yung Caruso Jr., MD [Staff Provider] - <Aleyda Jaffe Nadege - Last Filed: 01/15/17 23:53> Provider - Provider Date of Admission: 10/09/16 16:52 Attending physician: Chris Espinoza DO Hospital Course - Lab Results Lab Results: Micro Results 10/15/16 13:58 Blood Blood Culture - Final NO GROWTH AFTER 5 DAYS 10/15/16 13:58 Blood Gram Stain - Final TEST NOT PERFORMED 10/15/16 13:58 Blood Blood Culture - Final NO GROWTH AFTER 5 DAYS 10/15/16 13:58 Blood Gram Stain - Final TEST NOT PERFORMED 10/15/16 14:55 Urine Urine Culture - Final No Growth (<1,000 CFU/ML) 10/09/16 22:15 Blood-Venous Blood Culture - Final NO GROWTH AFTER 5 DAYS 10/09/16 22:15 Blood-Venous Gram Stain - Final TEST NOT PERFORMED 10/09/16 22:15 Blood-Venous Blood Culture - Final NO GROWTH AFTER 5 DAYS 10/09/16 22:15 Blood-Venous Gram Stain - Final TEST NOT PERFORMED 10/11/16 13:30 Urine Urine Culture - Final Enterococcus Faecalis Most Recent Lab Values WBC 16.7 K/uL (4.8-10.8) H 10/19/16 13:54 RBC 3.65 Mil/uL (4.40-5.90) L 10/19/16 13:54 Hgb 9.7 g/dL (12.0-18.0) L 10/19/16 13:54 Hct 29.6 % (35.0-51.0) L 10/19/16 13:54 MCV 81.1 fL (80.0-94.0) 10/19/16 13:54 MCH 26.6 pg (27.0-31.0) L 10/19/16 13:54 MCHC 32.8 g/dL (33.0-37.0) L 10/19/16 13:54 RDW 15.8 % (11.5-14.5) H 10/19/16 13:54 Plt Count 364 K/uL (130-400) 10/19/16 13:54 MPV 8.8 fL (7.2-11.7) 10/19/16 13:54 Neut % (Auto) 72.3 % (50.0-75.0) 10/19/16 13:54 Lymph % (Auto) 14.3 % (20.0-40.0) L 10/19/16 13:54 [place] % (Auto) 10.1 % (0.0-10.0) H 10/19/16 13:54 Eos % (Auto) 2.2 % (0.0-4.0) 10/19/16 13:54 Baso % (Auto) 1.1 % (0.0-2.0) 10/19/16 13:54 Neut # 12.1 K/uL (1.8-7.0) H 10/19/16 13:54 Lymph # 2.4 K/uL (1.0-4.3) 10/19/16 13:54 [place] # 1.7 K/uL (0.0-0.8) H 10/19/16 13:54 Eos # 0.4 K/uL (0.0-0.7) 10/19/16 13:54 Baso # 0.2 K/uL (0.0-0.2) 10/19/16 13:54 Neutrophils % (Manual) 85 % (50-75) H 10/18/16 07:52 Lymphocytes % (Manual) 6 % (20-40) L 10/18/16 07:52 Monocytes % (Manual) 9 % (0-10) 10/18/16 07:52 Eosinophils % (Manual) 1 % (0-4) 10/17/16 07:00 Basophils % (Manual) 1 % (0-2) 10/15/16 11:56 Toxic Granulation Present 10/12/16 07:18 Platelet Estimate Normal (NORMAL) 10/18/16 07:52 Giant Platelets Present 10/15/16 11:56 Polychromasia Slight 10/12/16 07:18 Hypochromasia (manual) Slight 10/18/16 07:52 Poikilocytosis (manual Slight 10/18/16 07:52 Anisocytosis (manual) Slight 10/18/16 07:52 Target Cells Slight 10/11/16 08:05 Ovalocytes Slight 10/15/16 11:56 Carver Cells Slight 10/15/16 11:56 ESR 70 mm/hr (0-15) H 10/17/16 07:00 PT 15.4 SECONDS (9.7-12.2) H 10/09/16 21:50 INR 1.3 10/09/16 21:50 APTT 29 SECONDS (21-34) 10/09/16 21:50 Sodium 132 mmol/L (132-148) 10/19/16 13:54 Potassium 3.5 mmol/L (3.6-5.2) L 10/19/16 13:54 Chloride 99 mmol/L (98-107) 10/19/16 13:54 Carbon Dioxide 23 mmol/L (22-30) 10/19/16 13:54 Anion Gap 14 (10-20) 10/19/16 13:54 BUN 24 mg/dL (9-20) H 10/19/16 13:54 Creatinine 0.8 MG/DL (0.8-1.5) 10/19/16 13:54 Est GFR ( Amer) > 60 10/19/16 13:54 Est GFR (Non-Af Amer) > 60 10/19/16 13:54 POC Glucose (mg/dL) 248 mg/dL (65-110) H 10/19/16 16:13 Random Glucose 225 mg/dL (75-110) H 10/19/16 13:54 Hemoglobin A1c 6.6 % (4.2-6.5) H 10/10/16 08:48 Calcium 7.4 mg/dl (8.6-10.4) L 10/19/16 13:54 Phosphorus 3.2 mg/dL (2.5-4.5) 10/18/16 07:52 Magnesium 1.4 mg/dL (1.6-2.3) L 10/19/16 13:54 Iron 48 ug/dL (49-181) L 10/11/16 08:05 TIBC 189 ug/dL (250-450) L 10/11/16 08:05 % Saturation 26 (20-55) 10/11/16 08:05 Ferritin 179.0 ng/mL 10/11/16 08:05 Total Bilirubin < 0.1 mg/dL (0.2-1.3) L 10/19/16 13:54 AST 18 U/L (17-59) 10/19/16 13:54 ALT 28 U/L (21-72) 10/19/16 13:54 Alkaline Phosphatase 63 U/L (38-126) 10/19/16 13:54 Lactate Dehydrogenase 414 U/L (313-618) 10/17/16 07:00 C-React Prot High Sens > 15.00 mg/L (1.00-3.00) H 10/17/16 07:00 Total Protein 5.6 g/dL (6.3-8.3) L 10/19/16 13:54 Albumin 2.2 g/dL (3.5-5.0) L 10/19/16 13:54 Globulin 3.4 gm/dL (2.2-3.9) 10/19/16 13:54 Albumin/Globulin Ratio 0.6 (1.0-2.1) L 10/19/16 13:54 Lipase 23 U/L (23-300) 10/09/16 12:04 Carcinoembryonic Ag 0.9 ng/mL (0-3.0) 10/11/16 13:16 Prostate Specific Ag 216 ng/mL (0.00-4.0) H 10/10/16 08:48 Procalcitonin 0.06 NG/ML (0.19-0.49) L 10/16/16 09:06 Urine Color Yellow (YELLOW) 10/09/16 12:24 Urine Clarity Hazy (Clear) 10/09/16 12:24 Urine pH 5.0 (5.0-8.0) 10/09/16 12:24 Ur Specific [place] 1.011 (1.003-1.030) 10/09/16 12:24 Urine Protein Negative mg/dL (NEGATIVE) 10/09/16 12:24 Urine Glucose (UA) Normal mg/dL (Normal) 10/09/16 12:24 Urine Ketones Negative mg/dL (NEGATIVE) 10/09/16 12:24 Urine Blood 1+ (NEGATIVE) H 10/09/16 12:24 Urine Nitrate Negative (NEGATIVE) 10/09/16 12:24 Urine Bilirubin Negative (NEGATIVE) 10/09/16 12:24 Urine Urobilinogen Normal mg/dL (0.2-1.0) 10/09/16 12:24 Ur Leukocyte Esterase 1+ Crispin/uL (Negative) H 10/09/16 12:24 Urine WBC (Auto) 13 /hpf (0-5) H 10/09/16 12:24 Urine RBC (Auto) 14 /hpf (0-3) H 10/09/16 12:24 Ur Squamous Epith Cells 13 /hpf (0-5) H 10/09/16 12:24 Amorphous Sediment Rare /ul (<OCC) H 10/09/16 12:24 Urine Bacteria Occ (<OCC) H 10/09/16 12:24 Vancomycin Trough 7.0 ug/mL (5.0-10.0) 10/14/16 11:33 C. difficile Ag & Toxin Negative (NEGATIVE) 10/16/16 20:35 Attending/Attestation - Attestation I have personally seen and examined this patient.: Yes I have fully participated in the care of the patient.: Yes I have reviewed all pertinent clinical information, including history, physical exam and plan: Yes
[2016-10-19 15:49] VITALS: PULSE 62; RESP 20; TEMP 98; O2SAT 98
[2016-10-19] MEDS ORDERED: Magnesium Sulfate 1 gm in D5W 1 GM/100 ML BAG IVPB ONE (16:00)
[2016-10-19 17:32] VITALS: BP 163/76
[2016-10-19] MEDS ORDERED: guaiFENesin 600 mg ER Tab PO SCH (18:00)
== END 2016-10-19 18:25 | DRG 683 ==
LOC: C.ER 11:29 → C.9E 16:52 → C.3T 18:12 → C.5T 10-14 12:40
PROVIDERS: ADMIT Hospitalist; ATTEND Hospitalist
PROC: 0DBM8ZX Excision of Descending Colon, Via Natural or Artificial Opening Endoscopic, Diagnostic (ICD-10-PCS; 2016-10-11)
PROC: 0T7D8ZZ Dilation of Urethra, Via Natural or Artificial Opening Endoscopic (ICD-10-PCS; principal; 2016-10-11 10:19)
DX: N17.9 Acute kidney failure, unspecified (principal); J90 Pleural effusion, not elsewhere classified; E87.2 Acidosis; R18.8 Other ascites; E87.1 Hypo-osmolality and hyponatremia; N13.8 Other obstructive and reflux uropathy; K27.3 Acute peptic ulcer, site unspecified, without hemorrhage or perforation; N39.0 Urinary tract infection, site not specified; W18.30XA Fall on same level, unspecified, initial encounter; E83.51 Hypocalcemia; K57.30 Diverticulosis of large intestine without perforation or abscess without bleeding; N13.30 Unspecified hydronephrosis; E86.0 Dehydration; E11.9 Type 2 diabetes mellitus without complications; I10 Essential (primary) hypertension; D47.3 Essential (hemorrhagic) thrombocythemia; E53.8 Deficiency of other specified B group vitamins; D50.9 Iron deficiency anemia, unspecified; K52.9 Noninfective gastroenteritis and colitis, unspecified; Z87.891 Personal history of nicotine dependence; M19.90 Unspecified osteoarthritis, unspecified site; K63.9 Disease of intestine, unspecified; N35.8 Other urethral stricture; K64.8 Other hemorrhoids; E78.5 Hyperlipidemia, unspecified; K59.00 Constipation, unspecified; N32.89 Other specified disorders of bladder; B96.20 Unspecified Escherichia coli [E. coli] as the cause of diseases classified elsewhere; N40.1 Benign prostatic hyperplasia with lower urinary tract symptoms; S09.90XA Unspecified injury of head, initial encounter; S39.92XA Unspecified injury of lower back, initial encounter

== ENCOUNTER 2017-09-04 11:59 | Inpatient (IN) | payer MEDICARE ==
--- NOTE | 2017-09-04 12:33 | C.PDOC ---
History Of Present Illness 87 year old male, whose PMHx includes HTN, DM, Anemia (based on previous admissions), and questionable prostate disease, is brought to the ED by EMS for evaluation after he was allegedly found on the floor by his caregiver covered in urine and feces. As per EMS, patient was on the floor for 2 days and did not have anything to eat/drink during this time. As per EMS, patient is complaining of abdominal pain. Patient denies any medical complaints in the ED. Additional information limited because patient is unable to provide a clear history. PMD: Dr. Jerald Troy Time Seen by Provider: 09/04/17 12:25 Chief Complaint (Nursing): Abdominal Pain History Per: Patient, EMS History/Exam Limitations: other (poor historian ) Onset/Duration Of Symptoms: Unknown Current Symptoms Are (Timing): Still Present Additional History Per: Patient Past Medical History Reviewed: Historical Data, Nursing Documentation, Vital Signs Vital Signs: Last Vital Signs Temp 98 F 09/05/17 04:00 Pulse 98 H 09/05/17 07:44 Resp 18 09/05/17 07:44 BP 119/65 09/05/17 07:44 Pulse Ox 96 09/05/17 11:51 - Medical History PMH: Benign Prostatic Hyperplasia, HTN Denies: Chronic Kidney Disease Surgical History: No Surg Hx - [facility] Procedures DILATION OF URETHRA, ENDO (10/09/16) EXCISION OF DESCENDING COLON, ENDO, DIAGN (10/09/16) Family History: States: Unknown Family Hx - Social History Hx Alcohol Use: No Hx Substance Use: No - Immunization History Hx Tetanus Toxoid Vaccination: Yes Hx Influenza Vaccination: Yes Hx Pneumococcal Vaccination: Yes Review Of Systems Constitutional: Negative for: Fever, Chills Respiratory: Negative for: Shortness of Breath Gastrointestinal: Negative for: Vomiting, Abdominal Pain Neurological: Negative for: Headache Physical Exam - Physical Exam Appears: Non-toxic, No Acute Distress Skin: Warm, Dry, Pale Head: Atraumatic, Swelling (mild, infraorbital) Eye(s): bilateral: Other (pale conjunctiva ) Oral Mucosa: Dry Teeth: Edentulous Neck: Supple Chest: Symmetrical, No Deformity, No Tenderness Cardiovascular: Rhythm Regular, No Murmur Respiratory: Normal Breath Sounds, No Rales, No Rhonchi, No Wheezing Gastrointestinal/Abdominal: Soft, No Tenderness, No Guarding, No Rebound Extremity: Normal ROM, Capillary Refill (less than 2 seconds ), No Other ( pitting edema ) Neurological/Psych: Normal Speech, Normal Cognition, Other (awake, alert and oriented x 2 (person and place)) ED Course And Treatment - Laboratory Results Result Diagrams: 09/05/17 03:10 09/05/17 03:10 ECG: Interpreted By Me, Viewed By Me ECG Rhythm: Sinus Rhythm Interpretation Of ECG: Sinus Rhythm at rate 97bpm. Flattened T waves in lateral leads. Rate From EC O2 Sat by Pulse Oximetry: 96 (on RA) Pulse Ox Interpretation: Normal - Other Rad CXR X-Ray: Interpreted by Me, Viewed By Me, Read By Radiologist Interpretation: Chest x-ray single frontal view. History: Abdominal pain. Comparison: 10/16/2016. Findings: Prominent patchy consolidative opacifications seen within the left mid to lower lung zone as well as the right hilar region extending into the right lung base. Small bilateral pleural effusions. Calcification at the aortic knob. Cardiomegaly. Degenerative changes in the spine and shoulders. Impression: Prominent patchy consolidative opacifications seen within the left mid to lower lung zone as well as the right hilar region extending into the right lung base. Small bilateral pleural effusions. Calcification at the aortic knob. Cardiomegaly. Medical Decision Making Medical Decision Making: Progress: Bloodwork, urinalysis, CXR, EKG ordered and reviewed. IV Fluids administered. Disposition Discussed With DrNatividad: Chelle Alcala - Disposition Disposition: HOSPITALIZED Disposition Time: 15:23 Condition: GUARDED - POA Present On Arrival: None - Clinical Impression Clinical Impression: NSTEMI (non-ST elevated myocardial infarction) - Scribe Statement The provider has reviewed the documentation as recorded by the Scribe (Veronica Alcala) Provider Attestation: All medical record entries made by the Scribe were at my direction and personally dictated by me. I have reviewed the chart and agree that the record accurately reflects my personal performance of the history, physical exam, medical decision making, and the department course for this patient. I have also personally directed, reviewed, and agree with the discharge instructions and disposition. Decision To Admit - Pt Status Changed To: Hospital Disposition Of: Inpatient - Admit Certification Admit to Inpatient:: After my assessment, the patient will require hospitalization for at least two midnights. This is because of the severity of symptoms shown, intensity of services needed, and/or the medical risk in this patient being treated as an outpatient. - InPatient: Physician Admission Certification:: NSTEMI - . Bed Request Type: ICU Admitting Physician: Chelle Alcala Patient Diagnosis: NSTEMI (non-ST elevated myocardial infarction)
[2017-09-04] MEDS ORDERED: Sodium Chloride 0.9% 500 ML IV ONE ×2 (13:14→13:51)
[2017-09-04 13:50] LABS: BASO % 0.1 % (0.0-2.0); EOS % 0.1 % (0.0-4.0); HEMOGLOBIN 7.8 g/dL (12.0-18.0); LYMPH # 1.3 K/uL (1.0-4.3); LYMPH % 8.8 % (20.0-40.0); MEAN CELL VOLUME 88.1 fL (80.0-94.0); MEAN CORPUSCULAR HEMOGLOBIN 29.6 pg (27.0-31.0); MEAN CORPUSCULAR HGB CONC 33.7 g/dL (33.0-37.0); MEAN PLATELET VOLUME 8.6 fL (7.2-11.7); MONO # 1.6 K/uL (0.0-0.8); MONO % 11.3 % (0.0-10.0); NEUT # 11.6 K/uL (1.8-7.0); NEUT % 79.7 % (50.0-75.0); PLATELET COUNT 382 K/uL (130-400); RBC 2.64 Mil/uL (4.40-5.90); RED CELL DISTRIBUTION WIDTH 15.7 % (11.5-14.5); WHITE BLOOD COUNT 14.5 K/uL (4.8-10.8)
[2017-09-04 14:25] LABS: ANISOCYTOSIS SLIGHT; BANDS 1 % (0-2); HYPOCHROMIC SLIGHT; LYMPHOCYTE 8 % (20-40); MONOCYTE 9 % (0-10); NEUTROPHIL 82 % (50-75); PLATELET ESTIMATE NORMAL (NORMAL); TOTAL CELLS COUNTED 100
--- NOTE | 2017-09-04 14:38 | RAD ---
Chest x-ray single frontal view History: Abdominal pain. Comparison: 10/16/2016 Findings: Prominent patchy consolidative opacifications seen within the left mid to lower lung zone as well as the right hilar region extending into the right lung base. Small bilateral pleural effusions. Calcification at the aortic knob. Cardiomegaly. Degenerative changes in the spine and shoulders. Impression: Prominent patchy consolidative opacifications seen within the left mid to lower lung zone as well as the right hilar region extending into the right lung base. Small bilateral pleural effusions. Calcification at the aortic knob. Cardiomegaly.
[2017-09-04] MEDS ORDERED: Sod Polystyrene Sulf 15 gm/60 ml Susp PO ONE ×2 (14:53→21:08)
[2017-09-04] MEDS ORDERED: Glucagon Recombinant 1 mg Inj IV STA (14:53)
[2017-09-04 14:55] LABS: ALB/GLOB RATIO 0.8 (1.0-2.1); ALBUMIN 3.6 g/dL (3.5-5.0)
[2017-09-04] MEDS ORDERED: (Novolin R) Insulin Human Regular 100 units/ml vial IV ONE (14:55)
[2017-09-04] MEDS ORDERED: Calcium Chloride 1000 mg/10 ml Syringe IV ONE (14:55)
[2017-09-04 15:12] LABS: TROPONIN I 13.1 ng/mL (0.00-0.120)
[2017-09-04] MEDS ORDERED: Sod Polystyrene Sulf 15 gm/60 ml Susp ONE (15:31)
[2017-09-04] MEDS ORDERED: (Novolin R) Insulin Human Regular 100 units/ml vial ONE (15:32)
[2017-09-04] MEDS ORDERED: Glucagon Recombinant 1 mg Inj ONE (15:32)
[2017-09-04 16:25] LABS: SQUAMOUS EPITHIAL 1 /hpf (0-5); URINE BACTERIA RARE (<OCC); URINE BILIRUBIN NEGATIVE (NEGATIVE); URINE BLOOD 2+ (NEGATIVE); URINE CLARITY Hazy (Clear); URINE GLUCOSE (UA) NORMAL (Normal); URINE LEUKOCYTE ESTERASE 3+ Leu/uL (Negative); URINE PROTEIN 1+ mg/dL (NEGATIVE); URINE UROBILINOGEN NORMAL mg/dL (0.2-1.0); WBC CLUMPS MOD /hpf
[2017-09-04 16:28] LABS: URINE COLOR YELLOW (YELLOW)
--- NOTE | 2017-09-04 18:29 | CP.PCM.CON ---
<Sol Garner - Last Filed: 09/04/17 19:02> History of Present Illness - History of Present Illness History of Present Illness: ICU consult note: Patient is a 87 year old male with past medical history of HTN. 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 Per ED documentation - As per EMS, patient was on the floor for 2 days and did not have anything to eat/ drink during this time. As per EMS, patient is complaining of abdominal pain. Patient denies any medical complaints in the ED. Additional information limited because patient is unable to provide a clear history. Patient was found to have NSTEMI with troponin of 13.1. Potassium was 7.0. Patient was given Glucagon x 1 , Novolin R 10 units, Kaexylate 30gm x 1, Calcium gluconate x 1 dose. Admitted to the ICU for closer monitoring. At this of interview, patient is lethargic but currently offers no complaints. He is coughing. Denies headache, dizziness, cp, palpitations, sob, abdominal pain, urinary symptoms. PMD: Dr Rayo Allergies: NKDA Medications: See MAR Medical Hx: HTN, diabetes, anemia, prostate mass? Surgical Hx: Cystoscopy OIU/Balloon dilitation insertion of garcia, hernia repair , prostatectomy Social Hx: Former smoker quit 30 years ago; denies EtOH and illicit drug use. Lives at home alone, has two daughters Past Patient History - Past Medical History & Family History Past Medical History?: Yes - Past Social History Smoking Status: Never Smoked - CARDIAC Hx Cardiac Disorders: Yes Hx Hypertension: Yes - PULMONARY Hx Respiratory Disorders: No - NEUROLOGICAL Hx Neurological Disorder: No - HEENT Hx HEENT Problems: No - RENAL Hx Chronic Kidney Disease: No - ENDOCRINE/METABOLIC Hx Endocrine Disorders: Yes Hx Diabetes Mellitus Type 2: Yes - HEMATOLOGICAL/ONCOLOGICAL Hx Blood Disorders: Yes Hx Anemia: Yes - INTEGUMENTARY Hx Dermatological Problems: No - MUSCULOSKELETAL/RHEUMATOLOGICAL Hx Falls: Yes - GASTROINTESTINAL Hx Gastrointestinal Disorders: No - GENITOURINARY/GYNECOLOGICAL Hx Genitourinary Disorders: Yes Hx Prostate Problems: Yes - PSYCHIATRIC Hx Substance Use: No - SURGICAL HISTORY Hx Surgeries: Yes Other/Comment: Prostate - ANESTHESIA Hx Anesthesia: No Hx Anesthesia Reactions: No Hx Malignant Hyperthermia: No Has any member of the family had a problem w/ anesthesia?: No Meds Allergies/Adverse Reactions: Allergies Allergy/AdvReac Type Severity Reaction Status Date / Time No Known Allergies Allergy Verified 09/04/17 12:12 - Medications Medications: Current Medications Famotidine (Pepcid) 20 mg PO DAILY [facility] Last Admin: 09/04/17 17:46 Dose: 20 mg Insulin Aspart (Novolog) 0 unit SC ACHS [place] PRN Reason: Protocol Physical Exam - Constitutional Appears: Well, Toxic, No Acute Distress - Head Exam Head Exam: ATRAUMATIC, NORMAL INSPECTION - Eye Exam Eye Exam: EOMI, Normal appearance - ENT Exam ENT Exam: Mucous Membranes Dry - Respiratory Exam Respiratory Exam: Decreased Breath Sounds, Rhonchi, NORMAL BREATHING PATTERN. absent: Rales, Respiratory Distress - Cardiovascular Exam Cardiovascular Exam: Tachycardia, +S1, +S2. absent: Irregular Rhythm, Systolic Murmur - GI/Abdominal Exam GI & Abdominal Exam: Normal Bowel Sounds, Soft. absent: Rebound, Rigid, Tenderness - Extremities Exam Extremities exam: Positive for: normal inspection - Neurological Exam Neurological exam: Alert - Psychiatric Exam Psychiatric exam: Normal Affect, Normal Mood - Skin Skin Exam: Dry, Normal Color, Warm Results - Vital Signs Recent Vital Signs: Last Vital Signs Temp 98.8 F 09/04/17 17:04 Pulse 104 H 09/04/17 18:00 Resp 23 09/04/17 18:00 BP 115/62 09/04/17 17:44 Pulse Ox 97 09/04/17 18:00 - Labs Result Diagrams: 09/04/17 13:44 09/04/17 13:44 Labs: Laboratory Results - last 24 hr 09/04/17 09/04/17 09/04/17 12:11 13:44 13:44 WBC 14.5 H RBC 2.64 L Hgb 7.8 L Hct 23.2 L MCV 88.1 D MCH 29.6 MCHC 33.7 RDW 15.7 H Plt Count 382 MPV 8.6 Neut % (Auto) 79.7 H Lymph % (Auto) 8.8 L [place] % (Auto) 11.3 H Eos % (Auto) 0.1 Baso % (Auto) 0.1 Neut # (Auto) 11.6 H Lymph # (Auto) 1.3 [place] # (Auto) 1.6 H Eos # (Auto) 0.0 Baso # (Auto) 0.0 Neutrophils % (Manual) 82 H Band Neutrophils % 1 Lymphocytes % (Manual) 8 L Monocytes % (Manual) 9 Platelet Estimate Normal Hypochromasia (manual) Slight Anisocytosis (manual) Slight Sodium 138 Potassium 7.0 H* D Chloride 103 Carbon Dioxide 18 L Anion Gap 24 H BUN 82 H Creatinine 5.1 H Est GFR ( Amer) 13 Est GFR (Non-Af Amer) 11 POC Glucose (mg/dL) 155 H Random Glucose 138 H Calcium 9.0 Total Bilirubin 0.6 AST 61 H ALT 19 L D Alkaline Phosphatase 96 Troponin I 13.1000 H* NT-Pro-B Natriuret Pep 66265 H Total Protein 7.8 Albumin 3.6 Globulin 4.3 H Albumin/Globulin Ratio 0.8 L Lipase 31 Urine Color Urine Clarity Urine pH Ur Specific [place] Urine Protein Urine Glucose (UA) Urine Ketones Urine Blood Urine Nitrate Urine Bilirubin Urine Urobilinogen Ur Leukocyte Esterase Urine WBC (Auto) Urine RBC (Auto) Urine WBC Clumps (Auto) Ur Squamous Epith Cells Urine Bacteria Stool Occult Blood Blood Type Antibody Screen 09/04/17 09/04/17 09/04/17 15:15 15:15 16:03 WBC RBC Hgb Hct MCV MCH MCHC RDW Plt Count MPV Neut % (Auto) Lymph % (Auto) [place] % (Auto) Eos % (Auto) Baso % (Auto) Neut # (Auto) Lymph # (Auto) [place] # (Auto) Eos # (Auto) Baso # (Auto) Neutrophils % (Manual) Band Neutrophils % Lymphocytes % (Manual) Monocytes % (Manual) Platelet Estimate Hypochromasia (manual) Anisocytosis (manual) Sodium Potassium Chloride Carbon Dioxide Anion Gap BUN Creatinine Est GFR ( Amer) Est GFR (Non-Af Amer) POC Glucose (mg/dL) Random Glucose Calcium Total Bilirubin AST ALT Alkaline Phosphatase Troponin I NT-Pro-B Natriuret Pep Total Protein Albumin Globulin Albumin/Globulin Ratio Lipase Urine Color Yellow Urine Clarity Hazy Urine pH 6.0 Ur Specific [place] 1.006 Urine Protein 1+ H Urine Glucose (UA) Normal Urine Ketones Negative Urine Blood 2+ H Urine Nitrate Negative Urine Bilirubin Negative Urine Urobilinogen Normal Ur Leukocyte Esterase 3+ H Urine WBC (Auto) 338 H Urine RBC (Auto) 20 H Urine WBC Clumps (Auto) Mod H Ur Squamous Epith Cells 1 Urine Bacteria Rare Stool Occult Blood Negative Blood Type O NEGATIVE Antibody Screen Negative 09/04/17 16:16 WBC RBC Hgb Hct MCV MCH MCHC RDW Plt Count MPV Neut % (Auto) Lymph % (Auto) [place] % (Auto) Eos % (Auto) Baso % (Auto) Neut # (Auto) Lymph # (Auto) [place] # (Auto) Eos # (Auto) Baso # (Auto) Neutrophils % (Manual) Band Neutrophils % Lymphocytes % (Manual) Monocytes % (Manual) Platelet Estimate Hypochromasia (manual) Anisocytosis (manual) Sodium Potassium Chloride Carbon Dioxide Anion Gap BUN Creatinine Est GFR ( Amer) Est GFR (Non-Af Amer) POC Glucose (mg/dL) 175 H Random Glucose Calcium Total Bilirubin AST ALT Alkaline Phosphatase Troponin I NT-Pro-B Natriuret Pep Total Protein Albumin Globulin Albumin/Globulin Ratio Lipase Urine Color Urine Clarity Urine pH Ur Specific [place] Urine Protein Urine Glucose (UA) Urine Ketones Urine Blood Urine Nitrate Urine Bilirubin Urine Urobilinogen Ur Leukocyte Esterase Urine WBC (Auto) Urine RBC (Auto) Urine WBC Clumps (Auto) Ur Squamous Epith Cells Urine Bacteria Stool Occult Blood Blood Type Antibody Screen Assessment & Plan - Assessment and Plan (Free Text) Assessment: Patient is a 87 year old male with past medical history of HTN. Diabetes type 2 on insulin, hyperlipidemia, urinary retention with uretal strciture who was brought to the ED by EMS for evaluation after he was allegedly found on the floor by his caregiver covered in urine and feces. Patient with NSTEMI, and hyperkalemia. Brought to the ICU for further management. Neurology : -Patient is alert and awake x 2 (not oriented to time) -CT head ordered, f/u report -PT/OT ordered -Aspiration precautions Cardiology: -Patient with NSTEMI, -Was given ASA 325mg PO x 1 -Troponin 13.1 on admission, will trend q8H -BNP 70,100 on admission -Last echo in 2014 showed EF 50-55%, diastolic dysfunction -Echo ordered, f/u official read -Potassium was 7 on admission -s/p kaexylate 30g x 1, Glucagon, Novolin R 10 units, Lasix 40mg, calcium gluconate -Repeat labs ordered -Cardiology on consult, help appreciated Respiratory : -Patient with rhonchi on the right -CXR showing prominent patchy consolidative opacifications seen within the left mid to lower lung zone as well as the right hilar region extending into the right lung base, small bilateral pleural effusions, calcification at the aortic knob. Cardiomegaly -Patient likely with aspiration pneumonia -F/U legionella, s pneumonia, mycoplasma, rapid strep -Sputum culture also ordered Renal: -Patient with acute kidney injury -BUN/Cr: 82/5.1 -NS @ 75 cc/hr -[place] catheter in place -Strict I/Os Endocrine: -Patient with history of Diabetes Mellitus Type 2 -Insulin sliding scale, accuchecks ACHS -F/U hga1c, lipid panel Infectious Disease: -UA abnormal, urine cultures ordered -Blood cultures, sputum cultures, procalcitonin ordered -Leukocytosis 14.5 on admission -Antibiotics: Heme/Onc: -Patient has a history of anemia -Hgb 7.8 on admission, asymptomatic -Repeat CBC ordered -F/U anemia work up -If hemoglobin continues to drop will probably need to transfuse GI/DVT ppx: -Pepcid 20mg PO daily -SCDs <Jesus Mejia - Last Filed: 09/04/17 19:19> Meds - Medications Medications: Current Medications Albuterol/Ipratropium (Duoneb 3 Mg/0.5 Mg (3 Ml) Ud) 3 ml INH RQ6 [facility] Aspirin (Aspirin Chewable) 81 mg PO DAILY [facility] Cyanocobalamin (Vitamin B12 1000 Mcg/Ml Inj) 1,000 mcg IM MWF [facility] Famotidine (Pepcid) 20 mg PO DAILY [facility] Last Admin: 09/04/17 17:46 Dose: 20 mg Sodium Chloride (Sodium Chloride 0.9%) 1,000 mls @ 75 mls/hr IV .[id number] [facility] Ceftriaxone Sodium 1 gm/ (Sodium Chloride) 100 mls @ 100 mls/hr IVPB DAILY [facility] PRN Reason: Protocol Azithromycin 500 mg/ Sodium (Chloride) 250 mls @ 250 mls/hr IVPB DAILY [facility] PRN Reason: Protocol Insulin Aspart (Novolog) 0 unit SC ACHS [facility] PRN Reason: Protocol Insulin Glargine (Lantus) 10 unit SC HS [facility] Insulin Human Regular (Novolin R) 0 unit SC ACHS [facility] PRN Reason: Protocol Ipratropium [place] (Atrovent) 0.5 mg IH RQ6 [facility] Pantoprazole Sodium (Protonix Ec Tab) 40 mg PO DAILY [facility] Rosuvastatin Calcium (Crestor) 5 mg PO HS [facility] Saccharomyces Boulardii (Florastor) 250 mg PO BID [facility] Results - Vital Signs Recent Vital Signs: Last Vital Signs Temp 98.8 F 09/04/17 17:04 Pulse 104 H 09/04/17 18:00 Resp 23 09/04/17 18:00 BP 115/62 09/04/17 17:44 Pulse Ox 96 09/04/17 18:53 - Labs Result Diagrams: 09/04/17 13:44 09/04/17 13:44 Labs: Laboratory Results - last 24 hr 09/04/17 09/04/17 09/04/17 12:11 13:44 13:44 WBC 14.5 H RBC 2.64 L Hgb 7.8 L Hct 23.2 L MCV 88.1 D MCH 29.6 MCHC 33.7 RDW 15.7 H Plt Count 382 MPV 8.6 Neut % (Auto) 79.7 H Lymph % (Auto) 8.8 L [place] % (Auto) 11.3 H Eos % (Auto) 0.1 Baso % (Auto) 0.1 Neut # (Auto) 11.6 H Lymph # (Auto) 1.3 [place] # (Auto) 1.6 H Eos # (Auto) 0.0 Baso # (Auto) 0.0 Neutrophils % (Manual) 82 H Band Neutrophils % 1 Lymphocytes % (Manual) 8 L Monocytes % (Manual) 9 Platelet Estimate Normal Hypochromasia (manual) Slight Anisocytosis (manual) Slight Sodium 138 Potassium 7.0 H* D Chloride 103 Carbon Dioxide 18 L Anion Gap 24 H BUN 82 H Creatinine 5.1 H Est GFR ( Amer) 13 Est GFR (Non-Af Amer) 11 POC Glucose (mg/dL) 155 H Random Glucose 138 H Calcium 9.0 Total Bilirubin 0.6 AST 61 H ALT 19 L D Alkaline Phosphatase 96 Troponin I 13.1000 H* NT-Pro-B Natriuret Pep 98707 H Total Protein 7.8 Albumin 3.6 Globulin 4.3 H Albumin/Globulin Ratio 0.8 L Lipase 31 Urine Color Urine Clarity Urine pH Ur Specific [place] Urine Protein Urine Glucose (UA) Urine Ketones Urine Blood Urine Nitrate Urine Bilirubin Urine Urobilinogen Ur Leukocyte Esterase Urine WBC (Auto) Urine RBC (Auto) Urine WBC Clumps (Auto) Ur Squamous Epith Cells Urine Bacteria Stool Occult Blood Blood Type Antibody Screen 09/04/17 09/04/17 09/04/17 15:15 15:15 16:03 WBC RBC Hgb Hct MCV MCH MCHC RDW Plt Count MPV Neut % (Auto) Lymph % (Auto) [place] % (Auto) Eos % (Auto) Baso % (Auto) Neut # (Auto) Lymph # (Auto) [place] # (Auto) Eos # (Auto) Baso # (Auto) Neutrophils % (Manual) Band Neutrophils % Lymphocytes % (Manual) Monocytes % (Manual) Platelet Estimate Hypochromasia (manual) Anisocytosis (manual) Sodium Potassium Chloride Carbon Dioxide Anion Gap BUN Creatinine Est GFR ( Amer) Est GFR (Non-Af Amer) POC Glucose (mg/dL) Random Glucose Calcium Total Bilirubin AST ALT Alkaline Phosphatase Troponin I NT-Pro-B Natriuret Pep Total Protein Albumin Globulin Albumin/Globulin Ratio Lipase Urine Color Yellow Urine Clarity Hazy Urine pH 6.0 Ur Specific [place] 1.006 Urine Protein 1+ H Urine Glucose (UA) Normal Urine Ketones Negative Urine Blood 2+ H Urine Nitrate Negative Urine Bilirubin Negative Urine Urobilinogen Normal Ur Leukocyte Esterase 3+ H Urine WBC (Auto) 338 H Urine RBC (Auto) 20 H Urine WBC Clumps (Auto) Mod H Ur Squamous Epith Cells 1 Urine Bacteria Rare Stool Occult Blood Negative Blood Type O NEGATIVE Antibody Screen Negative 09/04/17 16:16 WBC RBC Hgb Hct MCV MCH MCHC RDW Plt Count MPV Neut % (Auto) Lymph % (Auto) [place] % (Auto) Eos % (Auto) Baso % (Auto) Neut # (Auto) Lymph # (Auto) [place] # (Auto) Eos # (Auto) Baso # (Auto) Neutrophils % (Manual) Band Neutrophils % Lymphocytes % (Manual) Monocytes % (Manual) Platelet Estimate Hypochromasia (manual) Anisocytosis (manual) Sodium Potassium Chloride Carbon Dioxide Anion Gap BUN Creatinine Est GFR ( Amer) Est GFR (Non-Af Amer) POC Glucose (mg/dL) 175 H Random Glucose Calcium Total Bilirubin AST ALT Alkaline Phosphatase Troponin I NT-Pro-B Natriuret Pep Total Protein Albumin Globulin Albumin/Globulin Ratio Lipase Urine Color Urine Clarity Urine pH Ur Specific [place] Urine Protein Urine Glucose (UA) Urine Ketones Urine Blood Urine Nitrate Urine Bilirubin Urine Urobilinogen Ur Leukocyte Esterase Urine WBC (Auto) Urine RBC (Auto) Urine WBC Clumps (Auto) Ur Squamous Epith Cells Urine Bacteria Stool Occult Blood Blood Type Antibody Screen Attending/Attestation - Attestation I have personally seen and examined this patient.: Yes I have fully participated in the care of the patient.: Yes I have reviewed all pertinent clinical information: Yes Notes (Text): 09/04/17 19:17 Today: August The Patient was seen and examined at the bedside, Medical records reviewed, and management issues were discussed and formulated with the house staff. I have reviewed all the relevant clinical, laboratory, hemodynamic, radiographic data and medications Events reviewed Pain issues, skin care, head of the bed elevation, glycemic control were addressed. Agree with above resident's assessment and treatment plans of care as transcribed in Dr. Garner note.
[2017-09-04] MEDS ORDERED: Sodium Chloride 0.9% 1,000 ML IV SCH (19:00)
[2017-09-04 20:35] LABS: BASO % 0.2 % (0.0-2.0); HEMOGLOBIN 7.2 g/dL (12.0-18.0); LYMPH # 1.3 K/uL (1.0-4.3); LYMPH % 9.8 % (20.0-40.0); MEAN CORPUSCULAR HEMOGLOBIN 29.2 pg (27.0-31.0); MEAN CORPUSCULAR HGB CONC 33.2 g/dL (33.0-37.0); MEAN PLATELET VOLUME 8.1 fL (7.2-11.7); MONO # 1.3 K/uL (0.0-0.8); NEUT # 10.7 K/uL (1.8-7.0); PLATELET COUNT 365 K/uL (130-400); RBC 2.46 Mil/uL (4.40-5.90); RED CELL DISTRIBUTION WIDTH 15.3 % (11.5-14.5); WHITE BLOOD COUNT 13.4 K/uL (4.8-10.8)
[2017-09-04 20:54] LABS: ALB/GLOB RATIO 0.8 (1.0-2.1); ALBUMIN 3.5 g/dL (3.5-5.0)
[2017-09-04 20:54] LABS: INFLUENZA A B NEGATIVE FOR FLU A/B (NEGATIVE)
[2017-09-04 21:03] LABS: CK-MB 7.64 ng/mL (0.0-3.38); TROPONIN I 9.5 ng/mL (0.00-0.120)
[2017-09-04 21:03] LABS: LEGIONELLA AG URINE NEGATIVE (NEGATIVE)
[2017-09-04] MEDS: (Lantus) Insulin Glargine, Recombinant SC SCH (21:24)
[2017-09-04] MEDS: (Novolog) Insulin Aspart, Recombinant 100 u/ml 10 ml vial SC SCH (21:29)
[2017-09-04] MEDS: Albuterol-Ipratrop 3 mg / 0.5 (3 ml) UD INH SCH (21:56)
[2017-09-04] MEDS: Ipratropium 0.02% Inhal Soln (0.5 mg/2.5 ml) UD IH SCH (21:58)
[2017-09-04] MEDS ORDERED: (Novolin R) Insulin Human Regular 100 units/ml vial SC SCH (22:00)
[2017-09-04 22:13] LABS: LYMPHOCYTE 7 % (20-40); MONOCYTE 13 % (0-10); NEUTROPHIL 80 % (50-75); PLATELET ESTIMATE NORMAL (NORMAL); TOTAL CELLS COUNTED 100
[2017-09-04 22:14] LABS: ANISOCYTOSIS SLIGHT
[2017-09-04 22:15] LABS: OVALOCYTES SLIGHT; POIKILOCYTOSIS SLIGHT
[2017-09-04 22:39] LABS: INR 1.3; PROTHROMBIN TIME 14.4 SECONDS (9.7-12.2)
--- NOTE | 2017-09-04 23:35 | CT ---
EXAM: CT Head Without Intravenous Contrast CLINICAL HISTORY: 87 years old, male; Injury or trauma; Fall; Initial encounter; Abrasion; Head, generalized; Additional info: R/O CVA TECHNIQUE: Axial computed tomography images of the head/brain without intravenous contrast. All CT scans at this facility use one or more dose reduction techniques, viz.: automated exposure control; ma/kV adjustment per patient size (including targeted exams where dose is matched to indication; i.e. head); or iterative reconstruction technique. Coronal and sagittal reformatted images were created and reviewed. COMPARISON: CT - HEAD W/O CONTRAST 2015-01-27 22:30 FINDINGS: Brain: Moderate to severe atrophy. No intracranial hemorrhage. No mass. Several scattered foci of decreased attenuation within periventricular/subcortical white matter. No edema. Ventricles: No hydrocephalus. Bones/joints: No acute fracture. Soft tissues: Unremarkable. Vasculature: Atherosclerotic disease of intracranial arteries. Sinuses: No acute sinusitis. Mastoid air cells: No mastoid effusion. Orbits: Unremarkable as visualized. IMPRESSION: 1. No intracranial hemorrhage. 2. Nonspecific white matter changes. 3. Incidental/non-acute findings are described above.
[2017-09-04] MEDS: Sodium Chloride 0.9% 1,000 ML IV SCH (23:53)
[2017-09-05] MEDS: Albuterol-Ipratrop 3 mg / 0.5 (3 ml) UD INH SCH (01:31)
[2017-09-05] MEDS: Ipratropium 0.02% Inhal Soln (0.5 mg/2.5 ml) UD IH SCH ×4 (02:58→19:38)
[2017-09-05 03:35] LABS: BASO % 0.1 % (0.0-2.0); EOS % 0.2 % (0.0-4.0); HEMOGLOBIN 7.2 g/dL (12.0-18.0); LYMPH # 1.4 K/uL (1.0-4.3); LYMPH % 13.6 % (20.0-40.0); MEAN CELL VOLUME 88.4 fL (80.0-94.0); MEAN CORPUSCULAR HEMOGLOBIN 28.5 pg (27.0-31.0); MEAN CORPUSCULAR HGB CONC 32.3 g/dL (33.0-37.0); MEAN PLATELET VOLUME 7.8 fL (7.2-11.7); MONO # 1.1 K/uL (0.0-0.8); MONO % 10.6 % (0.0-10.0); NEUT # 7.7 K/uL (1.8-7.0); NEUT % 75.5 % (50.0-75.0); RBC 2.51 Mil/uL (4.40-5.90); RED CELL DISTRIBUTION WIDTH 15.1 % (11.5-14.5); WHITE BLOOD COUNT 10.2 K/uL (4.8-10.8)
[2017-09-05 03:40] LABS: ALB/GLOB RATIO 0.8 (1.0-2.1); ALBUMIN 3.1 g/dL (3.5-5.0); CALCIUM 8.4 mg/dl (8.6-10.4)
[2017-09-05 04:05] LABS: TROPONIN I 7.74 ng/mL (0.00-0.120)
[2017-09-05 04:06] LABS: CK-MB 5.66 ng/mL (0.0-3.38)
[2017-09-05 04:13] LABS: IRON 16 ug/dL (49-181)
[2017-09-05 04:22] LABS: % IRON SATURATION 7 (20-55); TOTAL IRON BINDING CAPACITY 235 ug/dL (250-450)
[2017-09-05 04:43] LABS: FOLATE 16.9 ng/mL
[2017-09-05] MEDS: Sodium Chloride 0.9% 1,000 ML IV SCH ×2 (06:22→10:25)
--- NOTE | 2017-09-05 06:47 | CON ---
DATE: CARDIOLOGY CONSULTATION REASON FOR CONSULTATION: Elevated troponin as well as abnormal EKG. HISTORY OF PRESENT ILLNESS: The patient is an 87-year-old male. The detailed medical history is not known to us at this time. The patient, according to the most recent discharge summary in 10/2016, had a prostate mass, acute renal insufficiency, hydronephrosis, urinary tract infection, colitis. However, his BUN and creatinine on 10/21/2016 were 24 and 0.8 respectively. The patient was found by the tenants to be in his apartment smeared in his urine and feces on the floor, unresponsive, was brought to the emergency room. The patient at this time in the emergency room is lethargic, but is oriented to place and can answer a few questions. The patient denies any chest pain or shortness of breath, and when asked about , denied having any. SOCIAL HISTORY: The patient is a nonsmoker. He lives by himself. He has 2 daughters in [place], but does not remember their phone numbers. MEDICATIONS: The patient given in the emergency room aspirin 325 mg as stat dose, was given Lasix 40 mg intravenously as a stat dose, and was started on normal saline infusion. He was also given calcium gluconate for hyperkalemia. REVIEW OF SYSTEMS: No reported hypotension and no reported seizure activity. No reported . PHYSICAL EXAMINATION: GENERAL: The patient is an elderly male, who does not appear to be in any acute distress. VITAL SIGNS: Blood pressure 123/80, heart rate is 107, temperature 97.9, respirations 20. HEENT: [place] conjunctivae. CHEST: Diminished breath sounds at the bases. HEART: S1 and S2 regular. ABDOMEN: Soft. EXTREMITIES: No pedal edema. LABORATORY DATA: Hemoglobin and hematocrit 7.8 and 23.2, compared to 10/2016, the patient has hemoglobin and hematocrit, it was 9.7 and 29.6; white count 14.5; platelet count 382,000. chloride 103, CO2 of 18, glucose 138, BUN 82, creatinine 5.1, troponin was 15.1. ProBNP is 70,100. C. diff is negative. Stool occult blood is negative. INR is 1.3, PTT 29. Chest x-ray revealed right lower lobe infiltrate, borderline cardiomegaly. EKG: Sinus rhythm at rate of 97, consider anteroseptal ID of indeterminate age. APCs were noted. Left anterior fascicular block. ASSESSMENT: 1. Unresponsiveness on presentation. 2. Acute renal failure and hyperkalemia. 3. Consider [id number] myocardial infarction. 4. Significant anemia. RECOMMENDATIONS: Admit the patient to the ICU. I will obtain a followup potassium level and Nephrology consult is recommended. Obtain a bedside echocardiographic study. Hold on full anticoagulation until the patient is cleared from gastrointestinal point of view. The patient is not a suitable candidate for invasive cardiac workup on an emergency basis. I will further discuss the case with the patient's family once they are located. Kaleb Newman MD
[2017-09-05] MEDS: (Novolog) Insulin Aspart, Recombinant 100 u/ml 10 ml vial SC SCH ×4 (07:30→21:15)
[2017-09-05 08:33] LABS: SQUAMOUS EPITHIAL < 1 /hpf (0-5); URINE BACTERIA FEW (<OCC); URINE BILIRUBIN NEGATIVE (NEGATIVE); URINE BLOOD 2+ (NEGATIVE); URINE CLARITY Hazy (Clear); URINE GLUCOSE (UA) 1+ mg/dL (Normal); URINE LEUKOCYTE ESTERASE 3+ Leu/uL (Negative); URINE PROTEIN 2+ mg/dL (NEGATIVE); URINE UROBILINOGEN NORMAL mg/dL (0.2-1.0); WBC CLUMPS MANY /hpf
[2017-09-05 08:49] LABS: URINE COLOR YELLOW (YELLOW)
[2017-09-05] MEDS: Azithromycin 500 MG in Sodium Chloride 0.9% 250 ML IVPB SCH (09:07)
[2017-09-05] MEDS: Saccharomyces Boulardi 250 mg Cap PO SCH ×2 (09:09→18:50)
[2017-09-05 09:14] LABS: CREATININE, RANDOM URINE 26.7 mg/dL
[2017-09-05] MEDS ORDERED: Sodium Chloride 0.9% 1,000 ML IV SCH (09:52)
--- NOTE | 2017-09-05 09:56 | CP.CCUPN ---
<Sol Garner - Last Filed: 09/05/17 13:44> CCU Subjective - Physician Review Subjective (Free Text): 09/05/17 09:56 Patient seen and examined at bedside. per nursning no acute events overnight. Patient is doing well, coughing less today, no sputum production. Offers no complaints today. Troponins are trending down. Hyperkalemia now resolved. Denies headaches, dizziness, cp, palpitations, sob, abdominal pain, urinary symptoms. CCU Objective - Vital Signs / Intake & Output Vital Signs (Last 4 hours): Vital Signs Pulse Resp BP Pulse Ox 09/05/17 07:44 98 H 18 119/65 100 09/05/17 07:40 99 H 20 100 09/05/17 07:30 104 H 21 98 09/05/17 07:20 97 H 18 99 09/05/17 07:10 99 H 20 98 09/05/17 07:00 96 H 18 99 09/05/17 06:50 96 H 19 99 09/05/17 06:44 95 H 19 112/56 L 98 09/05/17 06:40 98 H 19 99 09/05/17 06:30 105 H 21 98 09/05/17 06:20 102 H 17 99 09/05/17 06:10 99 H 18 99 09/05/17 06:00 102 H 17 99 Intake and Output (Last 8hrs): Intake & Output 09/04/17 09/05/17 09/05/17 22:59 06:59 14:59 Intake Total 1238 1405 100 Output Total 350 650 Balance 888 755 100 Weight 69.173 kg 65.136 kg Intake: Intake, IV Amount 400 775 100 Right Antecubital 400 775 100 Oral 838 630 Output: Urine 350 650 Condom 350 650 Other: # Bowel Movements 1 - Physical Exam Other physical findings (Free Text): - Constitutional Appears: Well, Toxic, No Acute Distress - Head Exam Head Exam: ATRAUMATIC, NORMAL INSPECTION - Eye Exam Eye Exam: EOMI, Normal appearance - ENT Exam ENT Exam: Mucous Membranes Dry - Respiratory Exam Respiratory Exam: Decreased Breath Sounds, Rhonchi, NORMAL BREATHING PATTERN. absent: Rales, Respiratory Distress - Cardiovascular Exam Cardiovascular Exam: Tachycardia, +S1, +S2. absent: Irregular Rhythm, Systolic Murmur - GI/Abdominal Exam GI & Abdominal Exam: Normal Bowel Sounds, Soft. absent: Rebound, Rigid, Tenderness - Extremities Exam Extremities exam: Positive for: normal inspection - Neurological Exam Neurological exam: Alert - Psychiatric Exam Psychiatric exam: Normal Affect, Normal Mood - Skin Skin Exam: Dry, Normal Color, Warm - Medications Active Medications: Active Medications Generic Name Dose Route Start Last Admin Trade Name Freq PRN Reason Stop Dose Admin Aspirin 81 mg 09/05/17 10:00 09/05/17 09:10 Aspirin Chewable PO 81 mg DAILY [facility] Administration Cyanocobalamin 1,000 mcg 09/05/17 09:00 09/05/17 09:09 Vitamin B12 1000 Mcg/Ml Inj IM 1,000 mcg MWF [facility] Administration Famotidine 20 mg 09/04/17 16:30 09/05/17 09:09 Pepcid PO 20 mg DAILY [facility] Administration Guaifenesin 600 mg 09/05/17 10:00 Mucinex La PO BID [facility] Heparin Sodium (Porcine) 5,000 units 09/05/17 10:00 Heparin SC Q12 [facility] Ceftriaxone Sodium 1 gm/ 100 mls @ 100 mls/hr 09/05/17 10:00 09/05/17 09:06 Sodium Chloride IVPB 100 mls/hr DAILY [facility] Administration Protocol Azithromycin 500 mg/ Sodium 250 mls @ 250 mls/hr 09/05/17 10:00 09/05/17 09: 07 Chloride IVPB 250 mls/hr DAILY [facility] Administration Protocol Sodium Chloride 1,000 mls @ 150 mls/hr 09/05/17 09:52 Sodium Chloride 0.9% IV .[id number] [facility] Insulin Aspart 0 unit 09/04/17 22:00 09/05/17 07:30 Novolog SC Not Given ACHS [facility] Protocol Insulin Glargine 10 unit 09/04/17 22:00 09/04/17 21:24 Lantus SC 10 u HS [facility] Administration Ipratropium [place] 0.5 mg 09/04/17 18:45 09/05/17 07:39 Atrovent IH 0.5 mg RQ6 [facility] Administration Rosuvastatin Calcium 5 mg 09/04/17 22:00 09/04/17 21:25 Crestor PO 5 mg HS [facility] Administration Saccharomyces Boulardii 250 mg 09/05/17 10:00 09/05/17 09:09 Florastor PO 250 mg BID [facility] Administration - Patient Studies Lab Studies: Lab Studies 09/05/17 09/05/17 09/05/17 Range/Units 08:39 08:19 07:53 WBC (4.8-10.8) K/uL RBC (4.40-5.90) Mil/uL Hgb (12.0-18.0) g/dL Hct (35.0-51.0) % MCV (80.0-94.0) fL MCH (27.0-31.0) pg MCHC (33.0-37.0) g/dL RDW (11.5-14.5) % Plt Count (130-400) K/uL MPV (7.2-11.7) fL Neut % (Auto) (50.0-75.0) % Lymph % (Auto) (20.0-40.0) % [place] % (Auto) (0.0-10.0) % Eos % (Auto) (0.0-4.0) % Baso % (Auto) (0.0-2.0) % Neut # (Auto) (1.8-7.0) K/uL Lymph # (Auto) (1.0-4.3) K/uL [place] # (Auto) (0.0-0.8) K/uL Eos # (Auto) (0.0-0.7) K/uL Baso # (Auto) (0.0-0.2) K/uL Neutrophils % (Manual) (50-75) % Band Neutrophils % (0-2) % Lymphocytes % (Manual) (20-40) % Monocytes % (Manual) (0-10) % Platelet Estimate (NORMAL) Hypochromasia (manual) Poikilocytosis (manual Anisocytosis (manual) Ovalocytes Retic Count (0.5-1.5) % PT (9.7-12.2) SECONDS INR APTT (21-34) SECONDS Sodium (132-148) mmol/L Potassium (3.6-5.2) mmol/L Chloride (98-107) mmol/L Carbon Dioxide (22-30) mmol/L Anion Gap (10-20) BUN (9-20) mg/dL Creatinine (0.8-1.5) mg/dL Est GFR ( Amer) Est GFR (Non-Af Amer) POC Glucose (mg/dL) 143 H (65-110) mg/dL Random Glucose (75-110) mg/dL Hemoglobin A1c (4.2-6.5) % Calcium (8.6-10.4) mg/dl Phosphorus (2.5-4.5) mg/dL Magnesium (1.6-2.3) mg/dL Iron (49-181) ug/dL TIBC (250-450) ug/dL % Saturation (20-55) Transferrin (206-381) mg/dL Ferritin ng/mL Total Bilirubin (0.2-1.3) mg/dL AST (17-59) U/L ALT (21-72) U/L Alkaline Phosphatase (38-126) U/L Total Creatine Kinase (55-170) U/L CK-MB (Mass) (0.0-3.38) ng/mL Troponin I (0.00-0.120) ng/mL NT-Pro-B Natriuret Pep (0-900) pg/mL Total Protein (6.3-8.3) g/dL Albumin (3.5-5.0) g/dL Globulin (2.2-3.9) gm/dL Albumin/Globulin Ratio (1.0-2.1) Triglycerides (0-149) mg/dL Cholesterol (0-199) mg/dL LDL Cholesterol Direct (0-129) mg/dL HDL Cholesterol (30-70) mg/dL Lipase (23-300) U/L Vitamin B12 (239-931) pg/mL Folate ng/mL Procalcitonin (0.19-0.49) NG/ML Free T4 (0.78-2.19) ng/dL TSH 3rd Generation (0.46-4.68) mIU/L Urine Color Yellow (YELLOW) Urine Clarity Hazy (Clear) Urine pH 6.0 (5.0-8.0) Ur Specific [place] 1.009 (1.003-1.030) Urine Protein 2+ H (NEGATIVE) mg/dL Urine Glucose (UA) 1+ H (Normal) mg/dL Urine Ketones Negative (NEGATIVE) mg/dL Urine Blood 2+ H (NEGATIVE) Urine Nitrate Negative (NEGATIVE) Urine Bilirubin Negative (NEGATIVE) Urine Urobilinogen Normal (0.2-1.0) mg/dL Ur Leukocyte Esterase 3+ H (Negative) [place]/uL Urine WBC (Auto) 280 H (0-5) /hpf Urine RBC (Auto) 29 H (0-3) /hpf Urine WBC Clumps (Auto) Many H (NONE) /hpf Ur Squamous Epith Cells < 1 (0-5) /hpf Urine Bacteria Few H (<OCC) Ur Random Creatinine 26.7 mg/dL U Random Total Protein 119.0 H (0.0-12.0) mg/dL Ur Random Sodium 75 mmol/L Stool Occult Blood (NEGATIVE) Influenza Typ A,B (EIA) (NEGATIVE) Ur L.pneumophila Ag (NEGATIVE) Blood Type Antibody Screen 09/05/17 09/05/17 09/05/17 Range/Units 03:10 03:10 03:10 WBC (4.8-10.8) K/uL RBC (4.40-5.90) Mil/uL Hgb (12.0-18.0) g/dL Hct (35.0-51.0) % MCV (80.0-94.0) fL MCH (27.0-31.0) pg MCHC (33.0-37.0) g/dL RDW (11.5-14.5) % Plt Count (130-400) K/uL MPV (7.2-11.7) fL Neut % (Auto) (50.0-75.0) % Lymph % (Auto) (20.0-40.0) % [place] % (Auto) (0.0-10.0) % Eos % (Auto) (0.0-4.0) % Baso % (Auto) (0.0-2.0) % Neut # (Auto) (1.8-7.0) K/uL Lymph # (Auto) (1.0-4.3) K/uL [place] # (Auto) (0.0-0.8) K/uL Eos # (Auto) (0.0-0.7) K/uL Baso # (Auto) (0.0-0.2) K/uL Neutrophils % (Manual) (50-75) % Band Neutrophils % (0-2) % Lymphocytes % (Manual) (20-40) % Monocytes % (Manual) (0-10) % Platelet Estimate (NORMAL) Hypochromasia (manual) Poikilocytosis (manual Anisocytosis (manual) Ovalocytes Retic Count (0.5-1.5) % PT (9.7-12.2) SECONDS INR APTT (21-34) SECONDS Sodium 142 (132-148) mmol/L Potassium 4.6 (3.6-5.2) mmol/L Chloride 108 H (98-107) mmol/L Carbon Dioxide 17 L (22-30) mmol/L Anion Gap 21 H (10-20) BUN 72 H (9-20) mg/dL Creatinine 4.5 H (0.8-1.5) mg/dL Est GFR ( Amer) 15 Est GFR (Non-Af Amer) 13 POC Glucose (mg/dL) (65-110) mg/dL Random Glucose 164 H (75-110) mg/dL Hemoglobin A1c (4.2-6.5) % Calcium 8.4 L (8.6-10.4) mg/dl Phosphorus 5.0 H (2.5-4.5) mg/dL Magnesium 1.8 (1.6-2.3) mg/dL Iron 16 L (49-181) ug/dL TIBC 235 L (250-450) ug/dL % Saturation 7 L (20-55) Transferrin 147.38 L (206-381) mg/dL Ferritin 198.0 ng/mL Total Bilirubin 0.4 (0.2-1.3) mg/dL AST 36 (17-59) U/L ALT 19 L (21-72) U/L Alkaline Phosphatase 84 (38-126) U/L Total Creatine Kinase 86 (55-170) U/L CK-MB (Mass) 5.66 H (0.0-3.38) ng/mL Troponin I 7.7400 H* (0.00-0.120) ng/mL NT-Pro-B Natriuret Pep (0-900) pg/mL Total Protein 7.2 (6.3-8.3) g/dL Albumin 3.1 L (3.5-5.0) g/dL Globulin 4.1 H (2.2-3.9) gm/dL Albumin/Globulin Ratio 0.8 L (1.0-2.1) Triglycerides (0-149) mg/dL Cholesterol (0-199) mg/dL LDL Cholesterol Direct (0-129) mg/dL HDL Cholesterol (30-70) mg/dL Lipase (23-300) U/L Vitamin B12 302 (239-931) pg/mL Folate 16.9 ng/mL Procalcitonin (0.19-0.49) NG/ML Free T4 (0.78-2.19) ng/dL TSH 3rd Generation (0.46-4.68) mIU/L Urine Color (YELLOW) Urine Clarity (Clear) Urine pH (5.0-8.0) Ur Specific [place] (1.003-1.030) Urine Protein (NEGATIVE) mg/dL Urine Glucose (UA) (Normal) mg/dL Urine Ketones (NEGATIVE) mg/dL Urine Blood (NEGATIVE) Urine Nitrate (NEGATIVE) Urine Bilirubin (NEGATIVE) Urine Urobilinogen (0.2-1.0) mg/dL Ur Leukocyte Esterase (Negative) [place]/uL Urine WBC (Auto) (0-5) /hpf Urine RBC (Auto) (0-3) /hpf Urine WBC Clumps (Auto) (NONE) /hpf Ur Squamous Epith Cells (0-5) /hpf Urine Bacteria (<OCC) Ur Random Creatinine mg/dL U Random Total Protein (0.0-12.0) mg/dL Ur Random Sodium mmol/L Stool Occult Blood (NEGATIVE) Influenza Typ A,B (EIA) (NEGATIVE) Ur L.pneumophila Ag (NEGATIVE) Blood Type Antibody Screen 09/05/17 09/04/17 09/04/17 Range/Units 03:10 22:27 21:15 WBC 10.2 (4.8-10.8) K/uL RBC 2.51 L (4.40-5.90) Mil/uL Hgb 7.2 L (12.0-18.0) g/dL Hct 22.2 L (35.0-51.0) % MCV 88.4 (80.0-94.0) fL MCH 28.5 (27.0-31.0) pg MCHC 32.3 L (33.0-37.0) g/dL RDW 15.1 H (11.5-14.5) % Plt Count 325 (130-400) K/uL MPV 7.8 (7.2-11.7) fL Neut % (Auto) 75.5 H (50.0-75.0) % Lymph % (Auto) 13.6 L (20.0-40.0) % [place] % (Auto) 10.6 H (0.0-10.0) % Eos % (Auto) 0.2 (0.0-4.0) % Baso % (Auto) 0.1 (0.0-2.0) % Neut # (Auto) 7.7 H (1.8-7.0) K/uL Lymph # (Auto) 1.4 (1.0-4.3) K/uL [place] # (Auto) 1.1 H (0.0-0.8) K/uL Eos # (Auto) 0.0 (0.0-0.7) K/uL Baso # (Auto) 0.0 (0.0-0.2) K/uL Neutrophils % (Manual) (50-75) % Band Neutrophils % (0-2) % Lymphocytes % (Manual) (20-40) % Monocytes % (Manual) (0-10) % Platelet Estimate (NORMAL) Hypochromasia (manual) Poikilocytosis (manual Anisocytosis (manual) Ovalocytes Retic Count 1.3 (0.5-1.5) % PT 14.4 H (9.7-12.2) SECONDS INR 1.3 APTT 22 (21-34) SECONDS Sodium (132-148) mmol/L Potassium (3.6-5.2) mmol/L Chloride (98-107) mmol/L Carbon Dioxide (22-30) mmol/L Anion Gap (10-20) BUN (9-20) mg/dL Creatinine (0.8-1.5) mg/dL Est GFR ( Amer) Est GFR (Non-Af Amer) POC Glucose (mg/dL) 174 H (65-110) mg/dL Random Glucose (75-110) mg/dL Hemoglobin A1c (4.2-6.5) % Calcium (8.6-10.4) mg/dl Phosphorus (2.5-4.5) mg/dL Magnesium (1.6-2.3) mg/dL Iron (49-181) ug/dL TIBC (250-450) ug/dL % Saturation (20-55) Transferrin (206-381) mg/dL Ferritin ng/mL Total Bilirubin (0.2-1.3) mg/dL AST (17-59) U/L ALT (21-72) U/L Alkaline Phosphatase (38-126) U/L Total Creatine Kinase (55-170) U/L CK-MB (Mass) (0.0-3.38) ng/mL Troponin I (0.00-0.120) ng/mL NT-Pro-B Natriuret Pep (0-900) pg/mL Total Protein (6.3-8.3) g/dL Albumin (3.5-5.0) g/dL Globulin (2.2-3.9) gm/dL Albumin/Globulin Ratio (1.0-2.1) Triglycerides (0-149) mg/dL Cholesterol (0-199) mg/dL LDL Cholesterol Direct (0-129) mg/dL HDL Cholesterol (30-70) mg/dL Lipase (23-300) U/L Vitamin B12 (239-931) pg/mL Folate ng/mL Procalcitonin (0.19-0.49) NG/ML Free T4 (0.78-2.19) ng/dL TSH 3rd Generation (0.46-4.68) mIU/L Urine Color (YELLOW) Urine Clarity (Clear) Urine pH (5.0-8.0) Ur Specific [place] (1.003-1.030) Urine Protein (NEGATIVE) mg/dL Urine Glucose (UA) (Normal) mg/dL Urine Ketones (NEGATIVE) mg/dL Urine Blood (NEGATIVE) Urine Nitrate (NEGATIVE) Urine Bilirubin (NEGATIVE) Urine Urobilinogen (0.2-1.0) mg/dL Ur Leukocyte Esterase (Negative) [place]/uL Urine WBC (Auto) (0-5) /hpf Urine RBC (Auto) (0-3) /hpf Urine WBC Clumps (Auto) (NONE) /hpf Ur Squamous Epith Cells (0-5) /hpf Urine Bacteria (<OCC) Ur Random Creatinine mg/dL U Random Total Protein (0.0-12.0) mg/dL Ur Random Sodium mmol/L Stool Occult Blood (NEGATIVE) Influenza Typ A,B (EIA) (NEGATIVE) Ur L.pneumophila Ag (NEGATIVE) Blood Type Antibody Screen 09/04/17 09/04/17 09/04/17 Range/Units 20:40 20:30 20:30 WBC (4.8-10.8) K/uL RBC (4.40-5.90) Mil/uL Hgb (12.0-18.0) g/dL Hct (35.0-51.0) % MCV (80.0-94.0) fL MCH (27.0-31.0) pg MCHC (33.0-37.0) g/dL RDW (11.5-14.5) % Plt Count (130-400) K/uL MPV (7.2-11.7) fL Neut % (Auto) (50.0-75.0) % Lymph % (Auto) (20.0-40.0) % [place] % (Auto) (0.0-10.0) % Eos % (Auto) (0.0-4.0) % Baso % (Auto) (0.0-2.0) % Neut # (Auto) (1.8-7.0) K/uL Lymph # (Auto) (1.0-4.3) K/uL [place] # (Auto) (0.0-0.8) K/uL Eos # (Auto) (0.0-0.7) K/uL Baso # (Auto) (0.0-0.2) K/uL Neutrophils % (Manual) (50-75) % Band Neutrophils % (0-2) % Lymphocytes % (Manual) (20-40) % Monocytes % (Manual) (0-10) % Platelet Estimate (NORMAL) Hypochromasia (manual) Poikilocytosis (manual Anisocytosis (manual) Ovalocytes Retic Count (0.5-1.5) % PT (9.7-12.2) SECONDS INR APTT (21-34) SECONDS Sodium (132-148) mmol/L Potassium (3.6-5.2) mmol/L Chloride (98-107) mmol/L Carbon Dioxide (22-30) mmol/L Anion Gap (10-20) BUN (9-20) mg/dL Creatinine (0.8-1.5) mg/dL Est GFR ( Amer) Est GFR (Non-Af Amer) POC Glucose (mg/dL) (65-110) mg/dL Random Glucose (75-110) mg/dL Hemoglobin A1c (4.2-6.5) % Calcium (8.6-10.4) mg/dl Phosphorus (2.5-4.5) mg/dL Magnesium (1.6-2.3) mg/dL Iron (49-181) ug/dL TIBC (250-450) ug/dL % Saturation (20-55) Transferrin (206-381) mg/dL Ferritin ng/mL Total Bilirubin (0.2-1.3) mg/dL AST (17-59) U/L ALT (21-72) U/L Alkaline Phosphatase (38-126) U/L Total Creatine Kinase (55-170) U/L CK-MB (Mass) (0.0-3.38) ng/mL Troponin I (0.00-0.120) ng/mL NT-Pro-B Natriuret Pep (0-900) pg/mL Total Protein (6.3-8.3) g/dL Albumin (3.5-5.0) g/dL Globulin (2.2-3.9) gm/dL Albumin/Globulin Ratio (1.0-2.1) Triglycerides (0-149) mg/dL Cholesterol (0-199) mg/dL LDL Cholesterol Direct (0-129) mg/dL HDL Cholesterol (30-70) mg/dL Lipase (23-300) U/L Vitamin B12 (239-931) pg/mL Folate ng/mL Procalcitonin 6.26 H (0.19-0.49) NG/ML Free T4 1.39 (0.78-2.19) ng/dL TSH 3rd Generation (0.46-4.68) mIU/L Urine Color (YELLOW) Urine Clarity (Clear) Urine pH (5.0-8.0) Ur Specific [place] (1.003-1.030) Urine Protein (NEGATIVE) mg/dL Urine Glucose (UA) (Normal) mg/dL Urine Ketones (NEGATIVE) mg/dL Urine Blood (NEGATIVE) Urine Nitrate (NEGATIVE) Urine Bilirubin (NEGATIVE) Urine Urobilinogen (0.2-1.0) mg/dL Ur Leukocyte Esterase (Negative) [place]/uL Urine WBC (Auto) (0-5) /hpf Urine RBC (Auto) (0-3) /hpf Urine WBC Clumps (Auto) (NONE) /hpf Ur Squamous Epith Cells (0-5) /hpf Urine Bacteria (<OCC) Ur Random Creatinine mg/dL U Random Total Protein (0.0-12.0) mg/dL Ur Random Sodium mmol/L Stool Occult Blood (NEGATIVE) Influenza Typ A,B (EIA) Negative for flu a/b (NEGATIVE) Ur L.pneumophila Ag Negative (NEGATIVE) Blood Type Antibody Screen 09/04/17 09/04/17 09/04/17 Range/Units 20:30 20:30 20:30 WBC 13.4 H (4.8-10.8) K/uL RBC 2.46 L (4.40-5.90) Mil/uL Hgb 7.2 L (12.0-18.0) g/dL Hct 21.6 L (35.0-51.0) % MCV 88.0 (80.0-94.0) fL MCH 29.2 (27.0-31.0) pg MCHC 33.2 (33.0-37.0) g/dL RDW 15.3 H (11.5-14.5) % Plt Count 365 (130-400) K/uL MPV 8.1 (7.2-11.7) fL Neut % (Auto) 80.0 H (50.0-75.0) % Lymph % (Auto) 9.8 L (20.0-40.0) % [place] % (Auto) 10.0 (0.0-10.0) % Eos % (Auto) 0.0 (0.0-4.0) % Baso % (Auto) 0.2 (0.0-2.0) % Neut # (Auto) 10.7 H (1.8-7.0) K/uL Lymph # (Auto) 1.3 (1.0-4.3) K/uL [place] # (Auto) 1.3 H (0.0-0.8) K/uL Eos # (Auto) 0.0 (0.0-0.7) K/uL Baso # (Auto) 0.0 (0.0-0.2) K/uL Neutrophils % (Manual) 80 H (50-75) % Band Neutrophils % (0-2) % Lymphocytes % (Manual) 7 L (20-40) % Monocytes % (Manual) 13 H (0-10) % Platelet Estimate Normal (NORMAL) Hypochromasia (manual) Poikilocytosis (manual Slight Anisocytosis (manual) Slight Ovalocytes Slight Retic Count (0.5-1.5) % PT (9.7-12.2) SECONDS INR APTT (21-34) SECONDS Sodium 140 (132-148) mmol/L Potassium 6.1 H (3.6-5.2) mmol/L Chloride 105 (98-107) mmol/L Carbon Dioxide 17 L (22-30) mmol/L Anion Gap 24 H (10-20) BUN 81 H (9-20) mg/dL Creatinine 4.8 H (0.8-1.5) mg/dL Est GFR ( Amer) 14 Est GFR (Non-Af Amer) 12 POC Glucose (mg/dL) (65-110) mg/dL Random Glucose 114 H (75-110) mg/dL Hemoglobin A1c 6.9 H (4.2-6.5) % Calcium 9.0 (8.6-10.4) mg/dl Phosphorus 5.5 H (2.5-4.5) mg/dL Magnesium 1.9 (1.6-2.3) mg/dL Iron (49-181) ug/dL TIBC (250-450) ug/dL % Saturation (20-55) Transferrin (206-381) mg/dL Ferritin ng/mL Total Bilirubin 0.6 (0.2-1.3) mg/dL AST 47 (17-59) U/L ALT 19 L (21-72) U/L Alkaline Phosphatase 89 (38-126) U/L Total Creatine Kinase 131 (55-170) U/L CK-MB (Mass) 7.64 H (0.0-3.38) ng/mL Troponin I 9.5000 H* (0.00-0.120) ng/mL NT-Pro-B Natriuret Pep (0-900) pg/mL Total Protein 7.8 (6.3-8.3) g/dL Albumin 3.5 (3.5-5.0) g/dL Globulin 4.3 H (2.2-3.9) gm/dL Albumin/Globulin Ratio 0.8 L (1.0-2.1) Triglycerides 69 (0-149) mg/dL Cholesterol 125 (0-199) mg/dL LDL Cholesterol Direct 60 (0-129) mg/dL HDL Cholesterol 34 (30-70) mg/dL Lipase (23-300) U/L Vitamin B12 (239-931) pg/mL Folate ng/mL Procalcitonin (0.19-0.49) NG/ML Free T4 (0.78-2.19) ng/dL TSH 3rd Generation 0.89 (0.46-4.68) mIU/L Urine Color (YELLOW) Urine Clarity (Clear) Urine pH (5.0-8.0) Ur Specific [place] (1.003-1.030) Urine Protein (NEGATIVE) mg/dL Urine Glucose (UA) (Normal) mg/dL Urine Ketones (NEGATIVE) mg/dL Urine Blood (NEGATIVE) Urine Nitrate (NEGATIVE) Urine Bilirubin (NEGATIVE) Urine Urobilinogen (0.2-1.0) mg/dL Ur Leukocyte Esterase (Negative) [place]/uL Urine WBC (Auto) (0-5) /hpf Urine RBC (Auto) (0-3) /hpf Urine WBC Clumps (Auto) (NONE) /hpf Ur Squamous Epith Cells (0-5) /hpf Urine Bacteria (<OCC) Ur Random Creatinine mg/dL U Random Total Protein (0.0-12.0) mg/dL Ur Random Sodium mmol/L Stool Occult Blood (NEGATIVE) Influenza Typ A,B (EIA) (NEGATIVE) Ur L.pneumophila Ag (NEGATIVE) Blood Type Antibody Screen 09/04/17 09/04/17 09/04/17 Range/Units 16:16 16:03 15:15 WBC (4.8-10.8) K/uL RBC (4.40-5.90) Mil/uL Hgb (12.0-18.0) g/dL Hct (35.0-51.0) % MCV (80.0-94.0) fL MCH (27.0-31.0) pg MCHC (33.0-37.0) g/dL RDW (11.5-14.5) % Plt Count (130-400) K/uL MPV (7.2-11.7) fL Neut % (Auto) (50.0-75.0) % Lymph % (Auto) (20.0-40.0) % [place] % (Auto) (0.0-10.0) % Eos % (Auto) (0.0-4.0) % Baso % (Auto) (0.0-2.0) % Neut # (Auto) (1.8-7.0) K/uL Lymph # (Auto) (1.0-4.3) K/uL [place] # (Auto) (0.0-0.8) K/uL Eos # (Auto) (0.0-0.7) K/uL Baso # (Auto) (0.0-0.2) K/uL Neutrophils % (Manual) (50-75) % Band Neutrophils % (0-2) % Lymphocytes % (Manual) (20-40) % Monocytes % (Manual) (0-10) % Platelet Estimate (NORMAL) Hypochromasia (manual) Poikilocytosis (manual Anisocytosis (manual) Ovalocytes Retic Count (0.5-1.5) % PT (9.7-12.2) SECONDS INR APTT (21-34) SECONDS Sodium (132-148) mmol/L Potassium (3.6-5.2) mmol/L Chloride (98-107) mmol/L Carbon Dioxide (22-30) mmol/L Anion Gap (10-20) BUN (9-20) mg/dL Creatinine (0.8-1.5) mg/dL Est GFR ( Amer) Est GFR (Non-Af Amer) POC Glucose (mg/dL) 175 H (65-110) mg/dL Random Glucose (75-110) mg/dL Hemoglobin A1c (4.2-6.5) % Calcium (8.6-10.4) mg/dl Phosphorus (2.5-4.5) mg/dL Magnesium (1.6-2.3) mg/dL Iron (49-181) ug/dL TIBC (250-450) ug/dL % Saturation (20-55) Transferrin (206-381) mg/dL Ferritin ng/mL Total Bilirubin (0.2-1.3) mg/dL AST (17-59) U/L ALT (21-72) U/L Alkaline Phosphatase (38-126) U/L Total Creatine Kinase (55-170) U/L CK-MB (Mass) (0.0-3.38) ng/mL Troponin I (0.00-0.120) ng/mL NT-Pro-B Natriuret Pep (0-900) pg/mL Total Protein (6.3-8.3) g/dL Albumin (3.5-5.0) g/dL Globulin (2.2-3.9) gm/dL Albumin/Globulin Ratio (1.0-2.1) Triglycerides (0-149) mg/dL Cholesterol (0-199) mg/dL LDL Cholesterol Direct (0-129) mg/dL HDL Cholesterol (30-70) mg/dL Lipase (23-300) U/L Vitamin B12 (239-931) pg/mL Folate ng/mL Procalcitonin (0.19-0.49) NG/ML Free T4 (0.78-2.19) ng/dL TSH 3rd Generation (0.46-4.68) mIU/L Urine Color Yellow (YELLOW) Urine Clarity Hazy (Clear) Urine pH 6.0 (5.0-8.0) Ur Specific [place] 1.006 (1.003-1.030) Urine Protein 1+ H (NEGATIVE) mg/dL Urine Glucose (UA) Normal (Normal) mg/dL Urine Ketones Negative (NEGATIVE) mg/dL Urine Blood 2+ H (NEGATIVE) Urine Nitrate Negative (NEGATIVE) Urine Bilirubin Negative (NEGATIVE) Urine Urobilinogen Normal (0.2-1.0) mg/dL Ur Leukocyte Esterase 3+ H (Negative) Crispin/uL Urine WBC (Auto) 338 H (0-5) /hpf Urine RBC (Auto) 20 H (0-3) /hpf Urine WBC Clumps (Auto) Mod H (NONE) /hpf Ur Squamous Epith Cells 1 (0-5) /hpf Urine Bacteria Rare (<OCC) Ur Random Creatinine mg/dL U Random Total Protein (0.0-12.0) mg/dL Ur Random Sodium mmol/L Stool Occult Blood Negative (NEGATIVE) Influenza Typ A,B (EIA) (NEGATIVE) Ur L.pneumophila Ag (NEGATIVE) Blood Type Antibody Screen 09/04/17 09/04/17 09/04/17 Range/Units 15:15 13:44 13:44 WBC 14.5 H (4.8-10.8) K/uL RBC 2.64 L (4.40-5.90) Mil/uL Hgb 7.8 L (12.0-18.0) g/dL Hct 23.2 L (35.0-51.0) % MCV 88.1 D (80.0-94.0) fL MCH 29.6 (27.0-31.0) pg MCHC 33.7 (33.0-37.0) g/dL RDW 15.7 H (11.5-14.5) % Plt Count 382 (130-400) K/uL MPV 8.6 (7.2-11.7) fL Neut % (Auto) 79.7 H (50.0-75.0) % Lymph % (Auto) 8.8 L (20.0-40.0) % [place] % (Auto) 11.3 H (0.0-10.0) % Eos % (Auto) 0.1 (0.0-4.0) % Baso % (Auto) 0.1 (0.0-2.0) % Neut # (Auto) 11.6 H (1.8-7.0) K/uL Lymph # (Auto) 1.3 (1.0-4.3) K/uL [place] # (Auto) 1.6 H (0.0-0.8) K/uL Eos # (Auto) 0.0 (0.0-0.7) K/uL Baso # (Auto) 0.0 (0.0-0.2) K/uL Neutrophils % (Manual) 82 H (50-75) % Band Neutrophils % 1 (0-2) % Lymphocytes % (Manual) 8 L (20-40) % Monocytes % (Manual) 9 (0-10) % Platelet Estimate Normal (NORMAL) Hypochromasia (manual) Slight Poikilocytosis (manual Anisocytosis (manual) Slight Ovalocytes Retic Count (0.5-1.5) % PT (9.7-12.2) SECONDS INR APTT (21-34) SECONDS Sodium 138 (132-148) mmol/L Potassium 7.0 H* D (3.6-5.2) mmol/L Chloride 103 (98-107) mmol/L Carbon Dioxide 18 L (22-30) mmol/L Anion Gap 24 H (10-20) BUN 82 H (9-20) mg/dL Creatinine 5.1 H (0.8-1.5) mg/dL Est GFR ( Amer) 13 Est GFR (Non-Af Amer) 11 POC Glucose (mg/dL) (65-110) mg/dL Random Glucose 138 H (75-110) mg/dL Hemoglobin A1c (4.2-6.5) % Calcium 9.0 (8.6-10.4) mg/dl Phosphorus (2.5-4.5) mg/dL Magnesium (1.6-2.3) mg/dL Iron (49-181) ug/dL TIBC (250-450) ug/dL % Saturation (20-55) Transferrin (206-381) mg/dL Ferritin ng/mL Total Bilirubin 0.6 (0.2-1.3) mg/dL AST 61 H (17-59) U/L ALT 19 L D (21-72) U/L Alkaline Phosphatase 96 (38-126) U/L Total Creatine Kinase (55-170) U/L CK-MB (Mass) (0.0-3.38) ng/mL Troponin I 13.1000 H* (0.00-0.120) ng/mL NT-Pro-B Natriuret Pep 67127 H (0-900) pg/mL Total Protein 7.8 (6.3-8.3) g/dL Albumin 3.6 (3.5-5.0) g/dL Globulin 4.3 H (2.2-3.9) gm/dL Albumin/Globulin Ratio 0.8 L (1.0-2.1) Triglycerides (0-149) mg/dL Cholesterol (0-199) mg/dL LDL Cholesterol Direct (0-129) mg/dL HDL Cholesterol (30-70) mg/dL Lipase 31 (23-300) U/L Vitamin B12 (239-931) pg/mL Folate ng/mL Procalcitonin (0.19-0.49) NG/ML Free T4 (0.78-2.19) ng/dL TSH 3rd Generation (0.46-4.68) mIU/L Urine Color (YELLOW) Urine Clarity (Clear) Urine pH (5.0-8.0) Ur Specific [place] (1.003-1.030) Urine Protein (NEGATIVE) mg/dL Urine Glucose (UA) (Normal) mg/dL Urine Ketones (NEGATIVE) mg/dL Urine Blood (NEGATIVE) Urine Nitrate (NEGATIVE) Urine Bilirubin (NEGATIVE) Urine Urobilinogen (0.2-1.0) mg/dL Ur Leukocyte Esterase (Negative) [place]pin/uL Urine WBC (Auto) (0-5) /hpf Urine RBC (Auto) (0-3) /hpf Urine WBC Clumps (Auto) (NONE) /hpf Ur Squamous Epith Cells (0-5) /hpf Urine Bacteria (<OCC) Ur Random Creatinine mg/dL U Random Total Protein (0.0-12.0) mg/dL Ur Random Sodium mmol/L Stool Occult Blood (NEGATIVE) Influenza Typ A,B (EIA) (NEGATIVE) Ur L.pneumophila Ag (NEGATIVE) Blood Type O NEGATIVE Antibody Screen Negative 09/04/17 Range/Units 12:11 WBC (4.8-10.8) K/uL RBC (4.40-5.90) Mil/uL Hgb (12.0-18.0) g/dL Hct (35.0-51.0) % MCV (80.0-94.0) fL MCH (27.0-31.0) pg MCHC (33.0-37.0) g/dL RDW (11.5-14.5) % Plt Count (130-400) K/uL MPV (7.2-11.7) fL Neut % (Auto) (50.0-75.0) % Lymph % (Auto) (20.0-40.0) % [place] % (Auto) (0.0-10.0) % Eos % (Auto) (0.0-4.0) % Baso % (Auto) (0.0-2.0) % Neut # (Auto) (1.8-7.0) K/uL Lymph # (Auto) (1.0-4.3) K/uL [place] # (Auto) (0.0-0.8) K/uL Eos # (Auto) (0.0-0.7) K/uL Baso # (Auto) (0.0-0.2) K/uL Neutrophils % (Manual) (50-75) % Band Neutrophils % (0-2) % Lymphocytes % (Manual) (20-40) % Monocytes % (Manual) (0-10) % Platelet Estimate (NORMAL) Hypochromasia (manual) Poikilocytosis (manual Anisocytosis (manual) Ovalocytes Retic Count (0.5-1.5) % PT (9.7-12.2) SECONDS INR APTT (21-34) SECONDS Sodium (132-148) mmol/L Potassium (3.6-5.2) mmol/L Chloride (98-107) mmol/L Carbon Dioxide (22-30) mmol/L Anion Gap (10-20) BUN (9-20) mg/dL Creatinine (0.8-1.5) mg/dL Est GFR ( Amer) Est GFR (Non-Af Amer) POC Glucose (mg/dL) 155 H (65-110) mg/dL Random Glucose (75-110) mg/dL Hemoglobin A1c (4.2-6.5) % Calcium (8.6-10.4) mg/dl Phosphorus (2.5-4.5) mg/dL Magnesium (1.6-2.3) mg/dL Iron (49-181) ug/dL TIBC (250-450) ug/dL % Saturation (20-55) Transferrin (206-381) mg/dL Ferritin ng/mL Total Bilirubin (0.2-1.3) mg/dL AST (17-59) U/L ALT (21-72) U/L Alkaline Phosphatase (38-126) U/L Total Creatine Kinase (55-170) U/L CK-MB (Mass) (0.0-3.38) ng/mL Troponin I (0.00-0.120) ng/mL NT-Pro-B Natriuret Pep (0-900) pg/mL Total Protein (6.3-8.3) g/dL Albumin (3.5-5.0) g/dL Globulin (2.2-3.9) gm/dL Albumin/Globulin Ratio (1.0-2.1) Triglycerides (0-149) mg/dL Cholesterol (0-199) mg/dL LDL Cholesterol Direct (0-129) mg/dL HDL Cholesterol (30-70) mg/dL Lipase (23-300) U/L Vitamin B12 (239-931) pg/mL Folate ng/mL Procalcitonin (0.19-0.49) NG/ML Free T4 (0.78-2.19) ng/dL TSH 3rd Generation (0.46-4.68) mIU/L Urine Color (YELLOW) Urine Clarity (Clear) Urine pH (5.0-8.0) Ur Specific [place] (1.003-1.030) Urine Protein (NEGATIVE) mg/dL Urine Glucose (UA) (Normal) mg/dL Urine Ketones (NEGATIVE) mg/dL Urine Blood (NEGATIVE) Urine Nitrate (NEGATIVE) Urine Bilirubin (NEGATIVE) Urine Urobilinogen (0.2-1.0) mg/dL Ur Leukocyte Esterase (Negative) Crispin/uL Urine WBC (Auto) (0-5) /hpf Urine RBC (Auto) (0-3) /hpf Urine WBC Clumps (Auto) (NONE) /hpf Ur Squamous Epith Cells (0-5) /hpf Urine Bacteria (<OCC) Ur Random Creatinine mg/dL U Random Total Protein (0.0-12.0) mg/dL Ur Random Sodium mmol/L Stool Occult Blood (NEGATIVE) Influenza Typ A,B (EIA) (NEGATIVE) Ur L.pneumophila Ag (NEGATIVE) Blood Type Antibody Screen Laboratory Results - last 24 hr 09/04/17 09/04/17 09/04/17 12:11 13:44 13:44 WBC 14.5 H RBC 2.64 L Hgb 7.8 L Hct 23.2 L MCV 88.1 D MCH 29.6 MCHC 33.7 RDW 15.7 H Plt Count 382 MPV 8.6 Neut % (Auto) 79.7 H Lymph % (Auto) 8.8 L [place] % (Auto) 11.3 H Eos % (Auto) 0.1 Baso % (Auto) 0.1 Neut # (Auto) 11.6 H Lymph # (Auto) 1.3 [place] # (Auto) 1.6 H Eos # (Auto) 0.0 Baso # (Auto) 0.0 Neutrophils % (Manual) 82 H Band Neutrophils % 1 Lymphocytes % (Manual) 8 L Monocytes % (Manual) 9 Platelet Estimate Normal Hypochromasia (manual) Slight Poikilocytosis (manual Anisocytosis (manual) Slight Ovalocytes Retic Count PT INR APTT Sodium 138 Potassium 7.0 H* D Chloride 103 Carbon Dioxide 18 L Anion Gap 24 H BUN 82 H Creatinine 5.1 H Est GFR ( Amer) 13 Est GFR (Non-Af Amer) 11 POC Glucose (mg/dL) 155 H Random Glucose 138 H Hemoglobin A1c Calcium 9.0 Phosphorus Magnesium Iron TIBC % Saturation Transferrin Ferritin Total Bilirubin 0.6 AST 61 H ALT 19 L D Alkaline Phosphatase 96 Total Creatine Kinase CK-MB (Mass) Troponin I 13.1000 H* NT-Pro-B Natriuret Pep 21498 H Total Protein 7.8 Albumin 3.6 Globulin 4.3 H Albumin/Globulin Ratio 0.8 L Triglycerides Cholesterol LDL Cholesterol Direct HDL Cholesterol Lipase 31 Vitamin B12 Folate Procalcitonin Free T4 TSH 3rd Generation Urine Color Urine Clarity Urine pH Ur Specific [place] Urine Protein Urine Glucose (UA) Urine Ketones Urine Blood Urine Nitrate Urine Bilirubin Urine Urobilinogen Ur Leukocyte Esterase Urine WBC (Auto) Urine RBC (Auto) Urine WBC Clumps (Auto) Ur Squamous Epith Cells Urine Bacteria Ur Random Creatinine U Random Total Protein Ur Random Sodium Stool Occult Blood Influenza Typ A,B (EIA) Ur L.pneumophila Ag Blood Type Antibody Screen 09/04/17 09/04/17 09/04/17 15:15 15:15 16:03 WBC RBC Hgb Hct MCV MCH MCHC RDW Plt Count MPV Neut % (Auto) Lymph % (Auto) [place] % (Auto) Eos % (Auto) Baso % (Auto) Neut # (Auto) Lymph # (Auto) [place] # (Auto) Eos # (Auto) Baso # (Auto) Neutrophils % (Manual) Band Neutrophils % Lymphocytes % (Manual) Monocytes % (Manual) Platelet Estimate Hypochromasia (manual) Poikilocytosis (manual Anisocytosis (manual) Ovalocytes Retic Count PT INR APTT Sodium Potassium Chloride Carbon Dioxide Anion Gap BUN Creatinine Est GFR ( Amer) Est GFR (Non-Af Amer) POC Glucose (mg/dL) Random Glucose Hemoglobin A1c Calcium Phosphorus Magnesium Iron TIBC % Saturation Transferrin Ferritin Total Bilirubin AST ALT Alkaline Phosphatase Total Creatine Kinase CK-MB (Mass) Troponin I NT-Pro-B Natriuret Pep Total Protein Albumin Globulin Albumin/Globulin Ratio Triglycerides Cholesterol LDL Cholesterol Direct HDL Cholesterol Lipase Vitamin B12 Folate Procalcitonin Free T4 TSH 3rd Generation Urine Color Yellow Urine Clarity Hazy Urine pH 6.0 Ur Specific [place] 1.006 Urine Protein 1+ H Urine Glucose (UA) Normal Urine Ketones Negative Urine Blood 2+ H Urine Nitrate Negative Urine Bilirubin Negative Urine Urobilinogen Normal Ur Leukocyte Esterase 3+ H Urine WBC (Auto) 338 H Urine RBC (Auto) 20 H Urine WBC Clumps (Auto) Mod H Ur Squamous Epith Cells 1 Urine Bacteria Rare Ur Random Creatinine U Random Total Protein Ur Random Sodium Stool Occult Blood Negative Influenza Typ A,B (EIA) Ur L.pneumophila Ag Blood Type O NEGATIVE Antibody Screen Negative 09/04/17 09/04/17 09/04/17 16:16 20:30 20:30 WBC RBC Hgb Hct MCV MCH MCHC RDW Plt Count MPV Neut % (Auto) Lymph % (Auto) [place] % (Auto) Eos % (Auto) Baso % (Auto) Neut # (Auto) Lymph # (Auto) [place] # (Auto) Eos # (Auto) Baso # (Auto) Neutrophils % (Manual) Band Neutrophils % Lymphocytes % (Manual) Monocytes % (Manual) Platelet Estimate Hypochromasia (manual) Poikilocytosis (manual Anisocytosis (manual) Ovalocytes Retic Count PT INR APTT Sodium 140 Potassium 6.1 H Chloride 105 Carbon Dioxide 17 L Anion Gap 24 H BUN 81 H Creatinine 4.8 H Est GFR ( Amer) 14 Est GFR (Non-Af Amer) 12 POC Glucose (mg/dL) 175 H Random Glucose 114 H Hemoglobin A1c 6.9 H Calcium 9.0 Phosphorus 5.5 H Magnesium 1.9 Iron TIBC % Saturation Transferrin Ferritin Total Bilirubin 0.6 AST 47 ALT 19 L Alkaline Phosphatase 89 Total Creatine Kinase 131 CK-MB (Mass) 7.64 H Troponin I 9.5000 H* NT-Pro-B Natriuret Pep Total Protein 7.8 Albumin 3.5 Globulin 4.3 H Albumin/Globulin Ratio 0.8 L Triglycerides 69 Cholesterol 125 LDL Cholesterol Direct 60 HDL Cholesterol 34 Lipase Vitamin B12 Folate Procalcitonin Free T4 TSH 3rd Generation 0.89 Urine Color Urine Clarity Urine pH Ur Specific [place] Urine Protein Urine Glucose (UA) Urine Ketones Urine Blood Urine Nitrate Urine Bilirubin Urine Urobilinogen Ur Leukocyte Esterase Urine WBC (Auto) Urine RBC (Auto) Urine WBC Clumps (Auto) Ur Squamous Epith Cells Urine Bacteria Ur Random Creatinine U Random Total Protein Ur Random Sodium Stool Occult Blood Influenza Typ A,B (EIA) Ur L.pneumophila Ag Blood Type Antibody Screen 09/04/17 09/04/17 09/04/17 20:30 20:30 20:30 WBC 13.4 H RBC 2.46 L Hgb 7.2 L Hct 21.6 L MCV 88.0 MCH 29.2 MCHC 33.2 RDW 15.3 H Plt Count 365 MPV 8.1 Neut % (Auto) 80.0 H Lymph % (Auto) 9.8 L [place] % (Auto) 10.0 Eos % (Auto) 0.0 Baso % (Auto) 0.2 Neut # (Auto) 10.7 H Lymph # (Auto) 1.3 [place] # (Auto) 1.3 H Eos # (Auto) 0.0 Baso # (Auto) 0.0 Neutrophils % (Manual) 80 H Band Neutrophils % Lymphocytes % (Manual) 7 L Monocytes % (Manual) 13 H Platelet Estimate Normal Hypochromasia (manual) Poikilocytosis (manual Slight Anisocytosis (manual) Slight Ovalocytes Slight Retic Count PT INR APTT Sodium Potassium Chloride Carbon Dioxide Anion Gap BUN Creatinine Est GFR ( Amer) Est GFR (Non-Af Amer) POC Glucose (mg/dL) Random Glucose Hemoglobin A1c Calcium Phosphorus Magnesium Iron TIBC % Saturation Transferrin Ferritin Total Bilirubin AST ALT Alkaline Phosphatase Total Creatine Kinase CK-MB (Mass) Troponin I NT-Pro-B Natriuret Pep Total Protein Albumin Globulin Albumin/Globulin Ratio Triglycerides Cholesterol LDL Cholesterol Direct HDL Cholesterol Lipase Vitamin B12 Folate Procalcitonin 6.26 H Free T4 1.39 TSH 3rd Generation Urine Color Urine Clarity Urine pH Ur Specific [place] Urine Protein Urine Glucose (UA) Urine Ketones Urine Blood Urine Nitrate Urine Bilirubin Urine Urobilinogen Ur Leukocyte Esterase Urine WBC (Auto) Urine RBC (Auto) Urine WBC Clumps (Auto) Ur Squamous Epith Cells Urine Bacteria Ur Random Creatinine U Random Total Protein Ur Random Sodium Stool Occult Blood Influenza Typ A,B (EIA) Ur L.pneumophila Ag Blood Type Antibody Screen 09/04/17 09/04/17 09/04/17 20:40 21:15 22:27 WBC RBC Hgb Hct MCV MCH MCHC RDW Plt Count MPV Neut % (Auto) Lymph % (Auto) [place] % (Auto) Eos % (Auto) Baso % (Auto) Neut # (Auto) Lymph # (Auto) [place] # (Auto) Eos # (Auto) Baso # (Auto) Neutrophils % (Manual) Band Neutrophils % Lymphocytes % (Manual) Monocytes % (Manual) Platelet Estimate Hypochromasia (manual) Poikilocytosis (manual Anisocytosis (manual) Ovalocytes Retic Count PT 14.4 H INR 1.3 APTT 22 Sodium Potassium Chloride Carbon Dioxide Anion Gap BUN Creatinine Est GFR ( Amer) Est GFR (Non-Af Amer) POC Glucose (mg/dL) 174 H Random Glucose Hemoglobin A1c Calcium Phosphorus Magnesium Iron TIBC % Saturation Transferrin Ferritin Total Bilirubin AST ALT Alkaline Phosphatase Total Creatine Kinase CK-MB (Mass) Troponin I NT-Pro-B Natriuret Pep Total Protein Albumin Globulin Albumin/Globulin Ratio Triglycerides Cholesterol LDL Cholesterol Direct HDL Cholesterol Lipase Vitamin B12 Folate Procalcitonin Free T4 TSH 3rd Generation Urine Color Urine Clarity Urine pH Ur Specific [place] Urine Protein Urine Glucose (UA) Urine Ketones Urine Blood Urine Nitrate Urine Bilirubin Urine Urobilinogen Ur Leukocyte Esterase Urine WBC (Auto) Urine RBC (Auto) Urine WBC Clumps (Auto) Ur Squamous Epith Cells Urine Bacteria Ur Random Creatinine U Random Total Protein Ur Random Sodium Stool Occult Blood Influenza Typ A,B (EIA) Negative for flu a/b Ur L.pneumophila Ag Negative Blood Type Antibody Screen 09/05/17 09/05/17 09/05/17 03:10 03:10 03:10 WBC 10.2 RBC 2.51 L Hgb 7.2 L Hct 22.2 L MCV 88.4 MCH 28.5 MCHC 32.3 L RDW 15.1 H Plt Count 325 MPV 7.8 Neut % (Auto) 75.5 H Lymph % (Auto) 13.6 L [place] % (Auto) 10.6 H Eos % (Auto) 0.2 Baso % (Auto) 0.1 Neut # (Auto) 7.7 H Lymph # (Auto) 1.4 [place] # (Auto) 1.1 H Eos # (Auto) 0.0 Baso # (Auto) 0.0 Neutrophils % (Manual) Band Neutrophils % Lymphocytes % (Manual) Monocytes % (Manual) Platelet Estimate Hypochromasia (manual) Poikilocytosis (manual Anisocytosis (manual) Ovalocytes Retic Count 1.3 PT INR APTT Sodium Potassium Chloride Carbon Dioxide Anion Gap BUN Creatinine Est GFR ( Amer) Est GFR (Non-Af Amer) POC Glucose (mg/dL) Random Glucose Hemoglobin A1c Calcium Phosphorus Magnesium Iron 16 L TIBC 235 L % Saturation 7 L Transferrin 147.38 L Ferritin Total Bilirubin AST ALT Alkaline Phosphatase Total Creatine Kinase CK-MB (Mass) Troponin I NT-Pro-B Natriuret Pep Total Protein Albumin Globulin Albumin/Globulin Ratio Triglycerides Cholesterol LDL Cholesterol Direct HDL Cholesterol Lipase Vitamin B12 Folate Procalcitonin Free T4 TSH 3rd Generation Urine Color Urine Clarity Urine pH Ur Specific [place] Urine Protein Urine Glucose (UA) Urine Ketones Urine Blood Urine Nitrate Urine Bilirubin Urine Urobilinogen Ur Leukocyte Esterase Urine WBC (Auto) Urine RBC (Auto) Urine WBC Clumps (Auto) Ur Squamous Epith Cells Urine Bacteria Ur Random Creatinine U Random Total Protein Ur Random Sodium Stool Occult Blood Influenza Typ A,B (EIA) Ur L.pneumophila Ag Blood Type Antibody Screen 09/05/17 09/05/17 09/05/17 03:10 07:53 08:19 WBC RBC Hgb Hct MCV MCH MCHC RDW Plt Count MPV Neut % (Auto) Lymph % (Auto) [place] % (Auto) Eos % (Auto) Baso % (Auto) Neut # (Auto) Lymph # (Auto) [place] # (Auto) Eos # (Auto) Baso # (Auto) Neutrophils % (Manual) Band Neutrophils % Lymphocytes % (Manual) Monocytes % (Manual) Platelet Estimate Hypochromasia (manual) Poikilocytosis (manual Anisocytosis (manual) Ovalocytes Retic Count PT INR APTT Sodium 142 Potassium 4.6 Chloride 108 H Carbon Dioxide 17 L Anion Gap 21 H BUN 72 H Creatinine 4.5 H Est GFR ( Amer) 15 Est GFR (Non-Af Amer) 13 POC Glucose (mg/dL) 143 H Random Glucose 164 H Hemoglobin A1c Calcium 8.4 L Phosphorus 5.0 H Magnesium 1.8 Iron TIBC % Saturation Transferrin Ferritin 198.0 Total Bilirubin 0.4 AST 36 ALT 19 L Alkaline Phosphatase 84 Total Creatine Kinase 86 CK-MB (Mass) 5.66 H Troponin I 7.7400 H* NT-Pro-B Natriuret Pep Total Protein 7.2 Albumin 3.1 L Globulin 4.1 H Albumin/Globulin Ratio 0.8 L Triglycerides Cholesterol LDL Cholesterol Direct HDL Cholesterol Lipase Vitamin B12 302 Folate 16.9 Procalcitonin Free T4 TSH 3rd Generation Urine Color Yellow Urine Clarity Hazy Urine pH 6.0 Ur Specific [place] 1.009 Urine Protein 2+ H Urine Glucose (UA) 1+ H Urine Ketones Negative Urine Blood 2+ H Urine Nitrate Negative Urine Bilirubin Negative Urine Urobilinogen Normal Ur Leukocyte Esterase 3+ H Urine WBC (Auto) 280 H Urine RBC (Auto) 29 H Urine WBC Clumps (Auto) Many H Ur Squamous Epith Cells < 1 Urine Bacteria Few H Ur Random Creatinine U Random Total Protein Ur Random Sodium Stool Occult Blood Influenza Typ A,B (EIA) Ur L.pneumophila Ag Blood Type Antibody Screen 09/05/17 08:39 WBC RBC Hgb Hct MCV MCH MCHC RDW Plt Count MPV Neut % (Auto) Lymph % (Auto) [place] % (Auto) Eos % (Auto) Baso % (Auto) Neut # (Auto) Lymph # (Auto) [place] # (Auto) Eos # (Auto) Baso # (Auto) Neutrophils % (Manual) Band Neutrophils % Lymphocytes % (Manual) Monocytes % (Manual) Platelet Estimate Hypochromasia (manual) Poikilocytosis (manual Anisocytosis (manual) Ovalocytes Retic Count PT INR APTT Sodium Potassium Chloride Carbon Dioxide Anion Gap BUN Creatinine Est GFR ( Amer) Est GFR (Non-Af Amer) POC Glucose (mg/dL) Random Glucose Hemoglobin A1c Calcium Phosphorus Magnesium Iron TIBC % Saturation Transferrin Ferritin Total Bilirubin AST ALT Alkaline Phosphatase Total Creatine Kinase CK-MB (Mass) Troponin I NT-Pro-B Natriuret Pep Total Protein Albumin Globulin Albumin/Globulin Ratio Triglycerides Cholesterol LDL Cholesterol Direct HDL Cholesterol Lipase Vitamin B12 Folate Procalcitonin Free T4 TSH 3rd Generation Urine Color Urine Clarity Urine pH Ur Specific [place] Urine Protein Urine Glucose (UA) Urine Ketones Urine Blood Urine Nitrate Urine Bilirubin Urine Urobilinogen Ur Leukocyte Esterase Urine WBC (Auto) Urine RBC (Auto) Urine WBC Clumps (Auto) Ur Squamous Epith Cells Urine Bacteria Ur Random Creatinine 26.7 U Random Total Protein 119.0 H Ur Random Sodium 75 Stool Occult Blood Influenza Typ A,B (EIA) Ur L.pneumophila Ag Blood Type Antibody Screen EKG/Cardiology Studies: Cardiology / EKG Studies 09/04/17 13:14 ELECTROCARDIOGRAM Stat Comment: Mode Of Transportation: BED Reason For Exam: abd pain Isolation: Contact 09/04/17 14:58 EKG [ELECTROCARDIOGRAM] Stat Comment: Mode Of Transportation: PORTABLE Reason For Exam: chf Isolation: Contact Fingerstick Blood Sugar Results: 143 Critical Care Progress Note - Nutrition Nutrition: Nutrition Category Date Time Status Consistent Carbohydrate [DIET] Diets 09/04/17 Lunch Active Assessment/Plan - Assessment and Plan (Free Text) Assessment: Patient is a 87 year old male with past medical history of HTN. Diabetes type 2 on insulin, hyperlipidemia, urinary retention with uretal strciture who was brought to the ED by EMS for evaluation after he was allegedly found on the floor by his caregiver covered in urine and feces. Patient with NSTEMI, and hyperkalemia. Brought to the ICU for further management. Neurology : -Patient is alert and awake x 2 (not oriented to time) -CT head ordered: no intracranial hemorrhage -Patient states that he was not on the floor for two days, states that his knees buckled and he was not able to get up -Physical Therapy /Occupational Therapy ordered -Aspiration precautions Cardiology: -Patient with NSTEMI -Was given ASA 325mg PO x 1 in the ED -Troponin 13.1 -> 9.5 -> 7.74 -BNP 70,100 on admission, Echo ordered, f/u official read -Last echo in 2014 showed EF 50-55%, diastolic dysfunction -No intervention at this time -Cardiology on consult, help appreciated Respiratory : -Patient with rhonchi on the right -CXR showing prominent patchy consolidative opacifications seen within the left mid to lower lung zone as well as the right hilar region extending into the right lung base, small bilateral pleural effusions, calcification at the aortic knob. Cardiomegaly -Patient likely with community aquired pneumonia -Duonebs q6H MOISES, guaifinesin 600mg PO BID -Rapid flu and urine legionella negative -F/U urine strep pneumonia, mycoplasma Igg Igm -Sputum culture also ordered Renal: -Patient with acute kidney injury -BUN/Cr: 82/5.1 -> 72/4.5 -CPK normal, no rhabdomyolysis -Continue NS @ 150 cc/hr, Renal US ordered -F/U urine sodium, urine creatinine, total protein -Potassium was 7 on admission, now normalized -Nephrology on consult, help appreciated : -Patient with obstructive uropathy, prostate mass? -History of urethral stricture, s/p dilation -Patient states that he did get a prostate biopsy outpatient, unsure what the results were -Bladder is distended on palpation -Unable to insert coude catheter at the bedside, attempted by Resident and Dr Tran -Started on Flomax 0.4mg PO daily -Urology consulted, help appreciated Endocrine: -Patient with history of Diabetes Mellitus Type 2 -Insulin sliding scale, Accuchecks ACHS -Lantus 10 units SC HS Infectious Disease: -UA abnormal, urine cultures ordered -Blood cultures, sputum cultures -Leukocytosis 14.5 on admission, improved -Procalcitonin 6.26 -Antibiotics: Azithromycin 500mg IV daily, Rocephin 1gm IV daily Heme/Onc: -Patient has a history of anemia, baseline hgb 10 -Hgb 7.8 on admission, asymptomatic, stool occult negative -Today hgb 7.2, patient still asymptomatic -In light of NSTEMI will transfuse 2 units PRBCs -Anemia workup suggesting iron deficiency anemia, anemia of chronic disease -Started of Ferrous gluconate 325mg PO TID -Vitamin B12 deficiency, continue supplementation -Heme/onc on consult, help appreciated GI/DVT ppx: -No GI ppx indicated at this time -Heparin 5000 units Q12H, SCDs <Dillon Tran - Last Filed: 09/05/17 14:49> CCU Objective - Vital Signs / Intake & Output Vital Signs (Last 4 hours): Vital Signs Temp Pulse Resp BP Pulse Ox 09/05/17 13:48 104 H 09/05/17 13:30 102 H 21 09/05/17 13:28 100 H 21 132/60 09/05/17 13:20 98 F 96 H 19 132/60 09/05/17 13:15 99 H 18 09/05/17 13:12 99 H 17 116/64 09/05/17 13:00 99 H 19 09/05/17 12:57 101 H 22 121/68 09/05/17 12:56 100 H 20 123/66 09/05/17 12:50 97.9 F 98 H 19 108/65 09/05/17 12:45 98 H 18 09/05/17 12:35 97.7 F 104 H 18 121/68 09/05/17 12:30 97 H 22 99 09/05/17 12:27 98 H 15 113/63 98 09/05/17 12:20 97.8 F 105 H 19 113/63 09/05/17 12:15 100 H 20 99 09/05/17 12:00 97.7 F 96 H 18 98 09/05/17 11:52 96 09/05/17 11:45 94 H 18 98 09/05/17 11:44 94 H 18 108/56 L 99 09/05/17 11:30 98 H 17 99 09/05/17 11:15 100 H 19 99 03/30/18 11:00 94 H 19 98 09/05/17 10:45 98 H 21 99 09/05/17 10:44 94 H 18 104/53 L 99 Intake and Output (Last 8hrs): Intake & Output 09/04/17 09/05/17 09/05/17 22:59 06:59 14:59 Intake Total 1238 1405 1600 Output Total 350 650 0 Balance 585 731 5061 Weight 152 lb 8 oz 143 lb 9.6 oz Intake: Intake, IV Amount 400 775 600 Right Antecubital 400 775 600 Oral 838 630 500 Blood Product 500 Red Blood Cells Cpd As1 250 Lr Unit [id number] Output: Urine 350 650 Condom 350 650 Emesis 0 Other: # Bowel Movements 1 0 - Medications Active Medications: Active Medications Generic Name Dose Route Start Last Admin Trade Name Freq PRN Reason Stop Dose Admin Aspirin 81 mg 09/05/17 10:00 09/05/17 09:10 Aspirin Chewable PO 81 mg DAILY [facility] Administration Cyanocobalamin 1,000 mcg 09/05/17 09:00 09/05/17 09:09 Vitamin B12 1000 Mcg/Ml Inj IM 1,000 mcg MWF [facility] Administration Ferrous Gluconate 324 mg 09/05/17 14:00 09/05/17 14:14 Fergon PO 324 mg TID [facility] Administration Guaifenesin 600 mg 09/05/17 10:00 09/05/17 14:12 Mucinex La PO 600 mg BID [facility] Administration Heparin Sodium (Porcine) 5,000 units 09/05/17 10:00 09/05/17 10:23 Heparin SC 5,000 units Q12 [facility] Administration Ceftriaxone Sodium 1 gm/ 100 mls @ 100 mls/hr 09/05/17 10:00 09/05/17 09:06 Sodium Chloride IVPB 100 mls/hr DAILY [facility] Administration Protocol Azithromycin 500 mg/ Sodium 250 mls @ 250 mls/hr 09/05/17 10:00 09/05/17 09: 07 Chloride IVPB 250 mls/hr DAILY [facility] Administration Protocol Sodium Chloride 1,000 mls @ 150 mls/hr 09/05/17 09:52 09/05/17 10:25 Sodium Chloride 0.9% IV Not Given .[id number] [facility] Insulin Aspart 0 unit 09/04/17 22:00 09/05/17 13:00 Novolog SC 3 unit ACHS [facility] Administration Protocol Insulin Glargine 10 unit 09/04/17 22:00 09/04/17 21:24 Lantus SC 10 u HS [facility] Administration Ipratropium [place] 0.5 mg 09/04/17 18:45 09/05/17 13:43 Atrovent IH 0.5 mg RQ6 [facility] Administration Rosuvastatin Calcium 5 mg 09/04/17 22:00 09/04/17 21:25 Crestor PO 5 mg HS [facility] Administration Saccharomyces Boulardii 250 mg 09/05/17 10:00 09/05/17 09:09 Florastor PO 250 mg BID [facility] Administration Sodium Bicarbonate 650 mg 09/05/17 13:00 09/05/17 14:12 Sodium Bicarbonate Tab PO 650 mg BID [facility] Administration Tamsulosin HCl 0.4 mg 09/05/17 12:45 09/05/17 14:12 Flomax PO 0.4 mg DAILY [facility] Administration Vitamin B Complex/Vit C/Folic Acid 1 tab 09/06/17 08:00 Nephro-Fe PO 0800 [facility] - Patient Studies Lab Studies: Microbiology Studies 09/04/17 Unknown Urine Culture - Preliminary Urine Gram Negative [facility] Studies 09/05/17 09/05/17 09/05/17 Range/Units 11:37 11:04 08:39 WBC (4.8-10.8) K/uL RBC (4.40-5.90) Mil/uL Hgb (12.0-18.0) g/dL Hct (35.0-51.0) % MCV (80.0-94.0) fL MCH (27.0-31.0) pg MCHC (33.0-37.0) g/dL RDW (11.5-14.5) % Plt Count (130-400) K/uL MPV (7.2-11.7) fL Neut % (Auto) (50.0-75.0) % Lymph % (Auto) (20.0-40.0) % [place] % (Auto) (0.0-10.0) % Eos % (Auto) (0.0-4.0) % Baso % (Auto) (0.0-2.0) % Neut # (Auto) (1.8-7.0) K/uL Lymph # (Auto) (1.0-4.3) K/uL [place] # (Auto) (0.0-0.8) K/uL Eos # (Auto) (0.0-0.7) K/uL Baso # (Auto) (0.0-0.2) K/uL Neutrophils % (Manual) (50-75) % Lymphocytes % (Manual) (20-40) % Monocytes % (Manual) (0-10) % Platelet Estimate (NORMAL) Poikilocytosis (manual Anisocytosis (manual) Ovalocytes Retic Count (0.5-1.5) % PT (9.7-12.2) SECONDS INR APTT (21-34) SECONDS Sodium (132-148) mmol/L Potassium (3.6-5.2) mmol/L Chloride (98-107) mmol/L Carbon Dioxide (22-30) mmol/L Anion Gap (10-20) BUN (9-20) mg/dL Creatinine (0.8-1.5) mg/dL Est GFR ( Amer) Est GFR (Non-Af Amer) POC Glucose (mg/dL) 277 H (65-110) mg/dL Random Glucose (75-110) mg/dL Hemoglobin A1c (4.2-6.5) % Calcium (8.6-10.4) mg/dl Phosphorus (2.5-4.5) mg/dL Magnesium (1.6-2.3) mg/dL Iron (49-181) ug/dL TIBC (250-450) ug/dL % Saturation (20-55) Transferrin (206-381) mg/dL Ferritin ng/mL Total Bilirubin (0.2-1.3) mg/dL AST (17-59) U/L ALT (21-72) U/L Alkaline Phosphatase (38-126) U/L Total Creatine Kinase 76 (55-170) U/L CK-MB (Mass) (0.0-3.38) ng/mL Troponin I (0.00-0.120) ng/mL NT-Pro-B Natriuret Pep (0-900) pg/mL Total Protein (6.3-8.3) g/dL Albumin (3.5-5.0) g/dL Globulin (2.2-3.9) gm/dL Albumin/Globulin Ratio (1.0-2.1) Triglycerides (0-149) mg/dL Cholesterol (0-199) mg/dL LDL Cholesterol Direct (0-129) mg/dL HDL Cholesterol (30-70) mg/dL Lipase (23-300) U/L Vitamin B12 (239-931) pg/mL Folate ng/mL Procalcitonin (0.19-0.49) NG/ML Free T4 (0.78-2.19) ng/dL TSH 3rd Generation (0.46-4.68) mIU/L Urine Color (YELLOW) Urine Clarity (Clear) Urine pH (5.0-8.0) Ur Specific [place] (1.003-1.030) Urine Protein (NEGATIVE) mg/dL Urine Glucose (UA) (Normal) mg/dL Urine Ketones (NEGATIVE) mg/dL Urine Blood (NEGATIVE) Urine Nitrate (NEGATIVE) Urine Bilirubin (NEGATIVE) Urine Urobilinogen (0.2-1.0) mg/dL Ur Leukocyte Esterase (Negative) [place]/uL Urine WBC (Auto) (0-5) /hpf Urine RBC (Auto) (0-3) /hpf Urine WBC Clumps (Auto) (NONE) /hpf Ur Squamous Epith Cells (0-5) /hpf Urine Bacteria (<OCC) Ur Random Creatinine 26.7 mg/dL U Random Total Protein 119.0 H (0.0-12.0) mg/dL Ur Random Sodium 75 mmol/L Stool Occult Blood (NEGATIVE) Influenza Typ A,B (EIA) (NEGATIVE) Ur L.pneumophila Ag (NEGATIVE) Blood Type Antibody Screen 09/05/17 09/05/17 09/05/17 Range/Units 08:19 07:53 03:10 WBC (4.8-10.8) K/uL RBC (4.40-5.90) Mil/uL Hgb (12.0-18.0) g/dL Hct (35.0-51.0) % MCV (80.0-94.0) fL MCH (27.0-31.0) pg MCHC (33.0-37.0) g/dL RDW (11.5-14.5) % Plt Count (130-400) K/uL MPV (7.2-11.7) fL Neut % (Auto) (50.0-75.0) % Lymph % (Auto) (20.0-40.0) % [place] % (Auto) (0.0-10.0) % Eos % (Auto) (0.0-4.0) % Baso % (Auto) (0.0-2.0) % Neut # (Auto) (1.8-7.0) K/uL Lymph # (Auto) (1.0-4.3) K/uL [place] # (Auto) (0.0-0.8) K/uL Eos # (Auto) (0.0-0.7) K/uL Baso # (Auto) (0.0-0.2) K/uL Neutrophils % (Manual) (50-75) % Lymphocytes % (Manual) (20-40) % Monocytes % (Manual) (0-10) % Platelet Estimate (NORMAL) Poikilocytosis (manual Anisocytosis (manual) Ovalocytes Retic Count (0.5-1.5) % PT (9.7-12.2) SECONDS INR APTT (21-34) SECONDS Sodium 142 (132-148) mmol/L Potassium 4.6 (3.6-5.2) mmol/L Chloride 108 H (98-107) mmol/L Carbon Dioxide 17 L (22-30) mmol/L Anion Gap 21 H (10-20) BUN 72 H (9-20) mg/dL Creatinine 4.5 H (0.8-1.5) mg/dL Est GFR ( Amer) 15 Est GFR (Non-Af Amer) 13 POC Glucose (mg/dL) 143 H (65-110) mg/dL Random Glucose 164 H (75-110) mg/dL Hemoglobin A1c (4.2-6.5) % Calcium 8.4 L (8.6-10.4) mg/dl Phosphorus 5.0 H (2.5-4.5) mg/dL Magnesium 1.8 (1.6-2.3) mg/dL Iron (49-181) ug/dL TIBC (250-450) ug/dL % Saturation (20-55) Transferrin (206-381) mg/dL Ferritin 198.0 ng/mL Total Bilirubin 0.4 (0.2-1.3) mg/dL AST 36 (17-59) U/L ALT 19 L (21-72) U/L Alkaline Phosphatase 84 (38-126) U/L Total Creatine Kinase 86 (55-170) U/L CK-MB (Mass) 5.66 H (0.0-3.38) ng/mL Troponin I 7.7400 H* (0.00-0.120) ng/mL NT-Pro-B Natriuret Pep (0-900) pg/mL Total Protein 7.2 (6.3-8.3) g/dL Albumin 3.1 L (3.5-5.0) g/dL Globulin 4.1 H (2.2-3.9) gm/dL Albumin/Globulin Ratio 0.8 L (1.0-2.1) Triglycerides (0-149) mg/dL Cholesterol (0-199) mg/dL LDL Cholesterol Direct (0-129) mg/dL HDL Cholesterol (30-70) mg/dL Lipase (23-300) U/L Vitamin B12 302 (239-931) pg/mL Folate 16.9 ng/mL Procalcitonin (0.19-0.49) NG/ML Free T4 (0.78-2.19) ng/dL TSH 3rd Generation (0.46-4.68) mIU/L Urine Color Yellow (YELLOW) Urine Clarity Hazy (Clear) Urine pH 6.0 (5.0-8.0) Ur Specific [place] 1.009 (1.003-1.030) Urine Protein 2+ H (NEGATIVE) mg/dL Urine Glucose (UA) 1+ H (Normal) mg/dL Urine Ketones Negative (NEGATIVE) mg/dL Urine Blood 2+ H (NEGATIVE) Urine Nitrate Negative (NEGATIVE) Urine Bilirubin Negative (NEGATIVE) Urine Urobilinogen Normal (0.2-1.0) mg/dL Ur Leukocyte Esterase 3+ H (Negative) Crispin/uL Urine WBC (Auto) 280 H (0-5) /hpf Urine RBC (Auto) 29 H (0-3) /hpf Urine WBC Clumps (Auto) Many H (NONE) /hpf Ur Squamous Epith Cells < 1 (0-5) /hpf Urine Bacteria Few H (<OCC) Ur Random Creatinine mg/dL U Random Total Protein (0.0-12.0) mg/dL Ur Random Sodium mmol/L Stool Occult Blood (NEGATIVE) Influenza Typ A,B (EIA) (NEGATIVE) Ur L.pneumophila Ag (NEGATIVE) Blood Type Antibody Screen 09/05/17 09/05/17 09/05/17 Range/Units 03:10 03:10 03:10 WBC 10.2 (4.8-10.8) K/uL RBC 2.51 L (4.40-5.90) Mil/uL Hgb 7.2 L (12.0-18.0) g/dL Hct 22.2 L (35.0-51.0) % MCV 88.4 (80.0-94.0) fL MCH 28.5 (27.0-31.0) pg MCHC 32.3 L (33.0-37.0) g/dL RDW 15.1 H (11.5-14.5) % Plt Count 325 (130-400) K/uL MPV 7.8 (7.2-11.7) fL Neut % (Auto) 75.5 H (50.0-75.0) % Lymph % (Auto) 13.6 L (20.0-40.0) % [place] % (Auto) 10.6 H (0.0-10.0) % Eos % (Auto) 0.2 (0.0-4.0) % Baso % (Auto) 0.1 (0.0-2.0) % Neut # (Auto) 7.7 H (1.8-7.0) K/uL Lymph # (Auto) 1.4 (1.0-4.3) K/uL [place] # (Auto) 1.1 H (0.0-0.8) K/uL Eos # (Auto) 0.0 (0.0-0.7) K/uL Baso # (Auto) 0.0 (0.0-0.2) K/uL Neutrophils % (Manual) (50-75) % Lymphocytes % (Manual) (20-40) % Monocytes % (Manual) (0-10) % Platelet Estimate (NORMAL) Poikilocytosis (manual Anisocytosis (manual) Ovalocytes Retic Count 1.3 (0.5-1.5) % PT (9.7-12.2) SECONDS INR APTT (21-34) SECONDS Sodium (132-148) mmol/L Potassium (3.6-5.2) mmol/L Chloride (98-107) mmol/L Carbon Dioxide (22-30) mmol/L Anion Gap (10-20) BUN (9-20) mg/dL Creatinine (0.8-1.5) mg/dL Est GFR ( Amer) Est GFR (Non-Af Amer) POC Glucose (mg/dL) (65-110) mg/dL Random Glucose (75-110) mg/dL Hemoglobin A1c (4.2-6.5) % Calcium (8.6-10.4) mg/dl Phosphorus (2.5-4.5) mg/dL Magnesium (1.6-2.3) mg/dL Iron 16 L (49-181) ug/dL TIBC 235 L (250-450) ug/dL % Saturation 7 L (20-55) Transferrin 147.38 L (206-381) mg/dL Ferritin ng/mL Total Bilirubin (0.2-1.3) mg/dL AST (17-59) U/L ALT (21-72) U/L Alkaline Phosphatase (38-126) U/L Total Creatine Kinase (55-170) U/L CK-MB (Mass) (0.0-3.38) ng/mL Troponin I (0.00-0.120) ng/mL NT-Pro-B Natriuret Pep (0-900) pg/mL Total Protein (6.3-8.3) g/dL Albumin (3.5-5.0) g/dL Globulin (2.2-3.9) gm/dL Albumin/Globulin Ratio (1.0-2.1) Triglycerides (0-149) mg/dL Cholesterol (0-199) mg/dL LDL Cholesterol Direct (0-129) mg/dL HDL Cholesterol (30-70) mg/dL Lipase (23-300) U/L Vitamin B12 (239-931) pg/mL Folate ng/mL Procalcitonin (0.19-0.49) NG/ML Free T4 (0.78-2.19) ng/dL TSH 3rd Generation (0.46-4.68) mIU/L Urine Color (YELLOW) Urine Clarity (Clear) Urine pH (5.0-8.0) Ur Specific [place] (1.003-1.030) Urine Protein (NEGATIVE) mg/dL Urine Glucose (UA) (Normal) mg/dL Urine Ketones (NEGATIVE) mg/dL Urine Blood (NEGATIVE) Urine Nitrate (NEGATIVE) Urine Bilirubin (NEGATIVE) Urine Urobilinogen (0.2-1.0) mg/dL Ur Leukocyte Esterase (Negative) Crispin/uL Urine WBC (Auto) (0-5) /hpf Urine RBC (Auto) (0-3) /hpf Urine WBC Clumps (Auto) (NONE) /hpf Ur Squamous Epith Cells (0-5) /hpf Urine Bacteria (<OCC) Ur Random Creatinine mg/dL U Random Total Protein (0.0-12.0) mg/dL Ur Random Sodium mmol/L Stool Occult Blood (NEGATIVE) Influenza Typ A,B (EIA) (NEGATIVE) Ur L.pneumophila Ag (NEGATIVE) Blood Type Antibody Screen 09/04/17 09/04/17 09/04/17 Range/Units 22:27 21:15 20:40 WBC (4.8-10.8) K/uL RBC (4.40-5.90) Mil/uL Hgb (12.0-18.0) g/dL Hct (35.0-51.0) % MCV (80.0-94.0) fL MCH (27.0-31.0) pg MCHC (33.0-37.0) g/dL RDW (11.5-14.5) % Plt Count (130-400) K/uL MPV (7.2-11.7) fL Neut % (Auto) (50.0-75.0) % Lymph % (Auto) (20.0-40.0) % [place] % (Auto) (0.0-10.0) % Eos % (Auto) (0.0-4.0) % Baso % (Auto) (0.0-2.0) % Neut # (Auto) (1.8-7.0) K/uL Lymph # (Auto) (1.0-4.3) K/uL [place] # (Auto) (0.0-0.8) K/uL Eos # (Auto) (0.0-0.7) K/uL Baso # (Auto) (0.0-0.2) K/uL Neutrophils % (Manual) (50-75) % Lymphocytes % (Manual) (20-40) % Monocytes % (Manual) (0-10) % Platelet Estimate (NORMAL) Poikilocytosis (manual Anisocytosis (manual) Ovalocytes Retic Count (0.5-1.5) % PT 14.4 H (9.7-12.2) SECONDS INR 1.3 APTT 22 (21-34) SECONDS Sodium (132-148) mmol/L Potassium (3.6-5.2) mmol/L Chloride (98-107) mmol/L Carbon Dioxide (22-30) mmol/L Anion Gap (10-20) BUN (9-20) mg/dL Creatinine (0.8-1.5) mg/dL Est GFR ( Amer) Est GFR (Non-Af Amer) POC Glucose (mg/dL) 174 H (65-110) mg/dL Random Glucose (75-110) mg/dL Hemoglobin A1c (4.2-6.5) % Calcium (8.6-10.4) mg/dl Phosphorus (2.5-4.5) mg/dL Magnesium (1.6-2.3) mg/dL Iron (49-181) ug/dL TIBC (250-450) ug/dL % Saturation (20-55) Transferrin (206-381) mg/dL Ferritin ng/mL Total Bilirubin (0.2-1.3) mg/dL AST (17-59) U/L ALT (21-72) U/L Alkaline Phosphatase (38-126) U/L Total Creatine Kinase (55-170) U/L CK-MB (Mass) (0.0-3.38) ng/mL Troponin I (0.00-0.120) ng/mL NT-Pro-B Natriuret Pep (0-900) pg/mL Total Protein (6.3-8.3) g/dL Albumin (3.5-5.0) g/dL Globulin (2.2-3.9) gm/dL Albumin/Globulin Ratio (1.0-2.1) Triglycerides (0-149) mg/dL Cholesterol (0-199) mg/dL LDL Cholesterol Direct (0-129) mg/dL HDL Cholesterol (30-70) mg/dL Lipase (23-300) U/L Vitamin B12 (239-931) pg/mL Folate ng/mL Procalcitonin (0.19-0.49) NG/ML Free T4 (0.78-2.19) ng/dL TSH 3rd Generation (0.46-4.68) mIU/L Urine Color (YELLOW) Urine Clarity (Clear) Urine pH (5.0-8.0) Ur Specific [place] (1.003-1.030) Urine Protein (NEGATIVE) mg/dL Urine Glucose (UA) (Normal) mg/dL Urine Ketones (NEGATIVE) mg/dL Urine Blood (NEGATIVE) Urine Nitrate (NEGATIVE) Urine Bilirubin (NEGATIVE) Urine Urobilinogen (0.2-1.0) mg/dL Ur Leukocyte Esterase (Negative) Crispin/uL Urine WBC (Auto) (0-5) /hpf Urine RBC (Auto) (0-3) /hpf Urine WBC Clumps (Auto) (NONE) /hpf Ur Squamous Epith Cells (0-5) /hpf Urine Bacteria (<OCC) Ur Random Creatinine mg/dL U Random Total Protein (0.0-12.0) mg/dL Ur Random Sodium mmol/L Stool Occult Blood (NEGATIVE) Influenza Typ A,B (EIA) Negative for flu a/b (NEGATIVE) Ur L.pneumophila Ag Negative (NEGATIVE) Blood Type Antibody Screen 09/04/17 09/04/17 09/04/17 Range/Units 20:30 20:30 20:30 WBC 13.4 H (4.8-10.8) K/uL RBC 2.46 L (4.40-5.90) Mil/uL Hgb 7.2 L (12.0-18.0) g/dL Hct 21.6 L (35.0-51.0) % MCV 88.0 (80.0-94.0) fL MCH 29.2 (27.0-31.0) pg MCHC 33.2 (33.0-37.0) g/dL RDW 15.3 H (11.5-14.5) % Plt Count 365 (130-400) K/uL MPV 8.1 (7.2-11.7) fL Neut % (Auto) 80.0 H (50.0-75.0) % Lymph % (Auto) 9.8 L (20.0-40.0) % [place] % (Auto) 10.0 (0.0-10.0) % Eos % (Auto) 0.0 (0.0-4.0) % Baso % (Auto) 0.2 (0.0-2.0) % Neut # (Auto) 10.7 H (1.8-7.0) K/uL Lymph # (Auto) 1.3 (1.0-4.3) K/uL [place] # (Auto) 1.3 H (0.0-0.8) K/uL Eos # (Auto) 0.0 (0.0-0.7) K/uL Baso # (Auto) 0.0 (0.0-0.2) K/uL Neutrophils % (Manual) 80 H (50-75) % Lymphocytes % (Manual) 7 L (20-40) % Monocytes % (Manual) 13 H (0-10) % Platelet Estimate Normal (NORMAL) Poikilocytosis (manual Slight Anisocytosis (manual) Slight Ovalocytes Slight Retic Count (0.5-1.5) % PT (9.7-12.2) SECONDS INR APTT (21-34) SECONDS Sodium (132-148) mmol/L Potassium (3.6-5.2) mmol/L Chloride (98-107) mmol/L Carbon Dioxide (22-30) mmol/L Anion Gap (10-20) BUN (9-20) mg/dL Creatinine (0.8-1.5) mg/dL Est GFR ( Amer) Est GFR (Non-Af Amer) POC Glucose (mg/dL) (65-110) mg/dL Random Glucose (75-110) mg/dL Hemoglobin A1c (4.2-6.5) % Calcium (8.6-10.4) mg/dl Phosphorus (2.5-4.5) mg/dL Magnesium (1.6-2.3) mg/dL Iron (49-181) ug/dL TIBC (250-450) ug/dL % Saturation (20-55) Transferrin (206-381) mg/dL Ferritin ng/mL Total Bilirubin (0.2-1.3) mg/dL AST (17-59) U/L ALT (21-72) U/L Alkaline Phosphatase (38-126) U/L Total Creatine Kinase (55-170) U/L CK-MB (Mass) (0.0-3.38) ng/mL Troponin I (0.00-0.120) ng/mL NT-Pro-B Natriuret Pep (0-900) pg/mL Total Protein (6.3-8.3) g/dL Albumin (3.5-5.0) g/dL Globulin (2.2-3.9) gm/dL Albumin/Globulin Ratio (1.0-2.1) Triglycerides (0-149) mg/dL Cholesterol (0-199) mg/dL LDL Cholesterol Direct (0-129) mg/dL HDL Cholesterol (30-70) mg/dL Lipase (23-300) U/L Vitamin B12 (239-931) pg/mL Folate ng/mL Procalcitonin 6.26 H (0.19-0.49) NG/ML Free T4 1.39 (0.78-2.19) ng/dL TSH 3rd Generation (0.46-4.68) mIU/L Urine Color (YELLOW) Urine Clarity (Clear) Urine pH (5.0-8.0) Ur Specific [place] (1.003-1.030) Urine Protein (NEGATIVE) mg/dL Urine Glucose (UA) (Normal) mg/dL Urine Ketones (NEGATIVE) mg/dL Urine Blood (NEGATIVE) Urine Nitrate (NEGATIVE) Urine Bilirubin (NEGATIVE) Urine Urobilinogen (0.2-1.0) mg/dL Ur Leukocyte Esterase (Negative) Crispin/uL Urine WBC (Auto) (0-5) /hpf Urine RBC (Auto) (0-3) /hpf Urine WBC Clumps (Auto) (NONE) /hpf Ur Squamous Epith Cells (0-5) /hpf Urine Bacteria (<OCC) Ur Random Creatinine mg/dL U Random Total Protein (0.0-12.0) mg/dL Ur Random Sodium mmol/L Stool Occult Blood (NEGATIVE) Influenza Typ A,B (EIA) (NEGATIVE) Ur L.pneumophila Ag (NEGATIVE) Blood Type Antibody Screen 09/04/17 09/04/17 09/04/17 Range/Units 20:30 20:30 16:16 WBC (4.8-10.8) K/uL RBC (4.40-5.90) Mil/uL Hgb (12.0-18.0) g/dL Hct (35.0-51.0) % MCV (80.0-94.0) fL MCH (27.0-31.0) pg MCHC (33.0-37.0) g/dL RDW (11.5-14.5) % Plt Count (130-400) K/uL MPV (7.2-11.7) fL Neut % (Auto) (50.0-75.0) % Lymph % (Auto) (20.0-40.0) % [place] % (Auto) (0.0-10.0) % Eos % (Auto) (0.0-4.0) % Baso % (Auto) (0.0-2.0) % Neut # (Auto) (1.8-7.0) K/uL Lymph # (Auto) (1.0-4.3) K/uL [place] # (Auto) (0.0-0.8) K/uL Eos # (Auto) (0.0-0.7) K/uL Baso # (Auto) (0.0-0.2) K/uL Neutrophils % (Manual) (50-75) % Lymphocytes % (Manual) (20-40) % Monocytes % (Manual) (0-10) % Platelet Estimate (NORMAL) Poikilocytosis (manual Anisocytosis (manual) Ovalocytes Retic Count (0.5-1.5) % PT (9.7-12.2) SECONDS INR APTT (21-34) SECONDS Sodium 140 (132-148) mmol/L Potassium 6.1 H (3.6-5.2) mmol/L Chloride 105 (98-107) mmol/L Carbon Dioxide 17 L (22-30) mmol/L Anion Gap 24 H (10-20) BUN 81 H (9-20) mg/dL Creatinine 4.8 H (0.8-1.5) mg/dL Est GFR ( Amer) 14 Est GFR (Non-Af Amer) 12 POC Glucose (mg/dL) 175 H (65-110) mg/dL Random Glucose 114 H (75-110) mg/dL Hemoglobin A1c 6.9 H (4.2-6.5) % Calcium 9.0 (8.6-10.4) mg/dl Phosphorus 5.5 H (2.5-4.5) mg/dL Magnesium 1.9 (1.6-2.3) mg/dL Iron (49-181) ug/dL TIBC (250-450) ug/dL % Saturation (20-55) Transferrin (206-381) mg/dL Ferritin ng/mL Total Bilirubin 0.6 (0.2-1.3) mg/dL AST 47 (17-59) U/L ALT 19 L (21-72) U/L Alkaline Phosphatase 89 (38-126) U/L Total Creatine Kinase 131 (55-170) U/L CK-MB (Mass) 7.64 H (0.0-3.38) ng/mL Troponin I 9.5000 H* (0.00-0.120) ng/mL NT-Pro-B Natriuret Pep (0-900) pg/mL Total Protein 7.8 (6.3-8.3) g/dL Albumin 3.5 (3.5-5.0) g/dL Globulin 4.3 H (2.2-3.9) gm/dL Albumin/Globulin Ratio 0.8 L (1.0-2.1) Triglycerides 69 (0-149) mg/dL Cholesterol 125 (0-199) mg/dL LDL Cholesterol Direct 60 (0-129) mg/dL HDL Cholesterol 34 (30-70) mg/dL Lipase (23-300) U/L Vitamin B12 (239-931) pg/mL Folate ng/mL Procalcitonin (0.19-0.49) NG/ML Free T4 (0.78-2.19) ng/dL TSH 3rd Generation 0.89 (0.46-4.68) mIU/L Urine Color (YELLOW) Urine Clarity (Clear) Urine pH (5.0-8.0) Ur Specific [place] (1.003-1.030) Urine Protein (NEGATIVE) mg/dL Urine Glucose (UA) (Normal) mg/dL Urine Ketones (NEGATIVE) mg/dL Urine Blood (NEGATIVE) Urine Nitrate (NEGATIVE) Urine Bilirubin (NEGATIVE) Urine Urobilinogen (0.2-1.0) mg/dL Ur Leukocyte Esterase (Negative) Crispin/uL Urine WBC (Auto) (0-5) /hpf Urine RBC (Auto) (0-3) /hpf Urine WBC Clumps (Auto) (NONE) /hpf Ur Squamous Epith Cells (0-5) /hpf Urine Bacteria (<OCC) Ur Random Creatinine mg/dL U Random Total Protein (0.0-12.0) mg/dL Ur Random Sodium mmol/L Stool Occult Blood (NEGATIVE) Influenza Typ A,B (EIA) (NEGATIVE) Ur L.pneumophila Ag (NEGATIVE) Blood Type Antibody Screen 09/04/17 09/04/17 09/04/17 Range/Units 16:03 15:15 15:15 WBC (4.8-10.8) K/uL RBC (4.40-5.90) Mil/uL Hgb (12.0-18.0) g/dL Hct (35.0-51.0) % MCV (80.0-94.0) fL MCH (27.0-31.0) pg MCHC (33.0-37.0) g/dL RDW (11.5-14.5) % Plt Count (130-400) K/uL MPV (7.2-11.7) fL Neut % (Auto) (50.0-75.0) % Lymph % (Auto) (20.0-40.0) % [place] % (Auto) (0.0-10.0) % Eos % (Auto) (0.0-4.0) % Baso % (Auto) (0.0-2.0) % Neut # (Auto) (1.8-7.0) K/uL Lymph # (Auto) (1.0-4.3) K/uL [place] # (Auto) (0.0-0.8) K/uL Eos # (Auto) (0.0-0.7) K/uL Baso # (Auto) (0.0-0.2) K/uL Neutrophils % (Manual) (50-75) % Lymphocytes % (Manual) (20-40) % Monocytes % (Manual) (0-10) % Platelet Estimate (NORMAL) Poikilocytosis (manual Anisocytosis (manual) Ovalocytes Retic Count (0.5-1.5) % PT (9.7-12.2) SECONDS INR APTT (21-34) SECONDS Sodium (132-148) mmol/L Potassium (3.6-5.2) mmol/L Chloride (98-107) mmol/L Carbon Dioxide (22-30) mmol/L Anion Gap (10-20) BUN (9-20) mg/dL Creatinine (0.8-1.5) mg/dL Est GFR ( Amer) Est GFR (Non-Af Amer) POC Glucose (mg/dL) (65-110) mg/dL Random Glucose (75-110) mg/dL Hemoglobin A1c (4.2-6.5) % Calcium (8.6-10.4) mg/dl Phosphorus (2.5-4.5) mg/dL Magnesium (1.6-2.3) mg/dL Iron (49-181) ug/dL TIBC (250-450) ug/dL % Saturation (20-55) Transferrin (206-381) mg/dL Ferritin ng/mL Total Bilirubin (0.2-1.3) mg/dL AST (17-59) U/L ALT (21-72) U/L Alkaline Phosphatase (38-126) U/L Total Creatine Kinase (55-170) U/L CK-MB (Mass) (0.0-3.38) ng/mL Troponin I (0.00-0.120) ng/mL NT-Pro-B Natriuret Pep (0-900) pg/mL Total Protein (6.3-8.3) g/dL Albumin (3.5-5.0) g/dL Globulin (2.2-3.9) gm/dL Albumin/Globulin Ratio (1.0-2.1) Triglycerides (0-149) mg/dL Cholesterol (0-199) mg/dL LDL Cholesterol Direct (0-129) mg/dL HDL Cholesterol (30-70) mg/dL Lipase (23-300) U/L Vitamin B12 (239-931) pg/mL Folate ng/mL Procalcitonin (0.19-0.49) NG/ML Free T4 (0.78-2.19) ng/dL TSH 3rd Generation (0.46-4.68) mIU/L Urine Color Yellow (YELLOW) Urine Clarity Hazy (Clear) Urine pH 6.0 (5.0-8.0) Ur Specific [place] 1.006 (1.003-1.030) Urine Protein 1+ H (NEGATIVE) mg/dL Urine Glucose (UA) Normal (Normal) mg/dL Urine Ketones Negative (NEGATIVE) mg/dL Urine Blood 2+ H (NEGATIVE) Urine Nitrate Negative (NEGATIVE) Urine Bilirubin Negative (NEGATIVE) Urine Urobilinogen Normal (0.2-1.0) mg/dL Ur Leukocyte Esterase 3+ H (Negative) Crispin/uL Urine WBC (Auto) 338 H (0-5) /hpf Urine RBC (Auto) 20 H (0-3) /hpf Urine WBC Clumps (Auto) Mod H (NONE) /hpf Ur Squamous Epith Cells 1 (0-5) /hpf Urine Bacteria Rare (<OCC) Ur Random Creatinine mg/dL U Random Total Protein (0.0-12.0) mg/dL Ur Random Sodium mmol/L Stool Occult Blood Negative (NEGATIVE) Influenza Typ A,B (EIA) (NEGATIVE) Ur L.pneumophila Ag (NEGATIVE) Blood Type O NEGATIVE Antibody Screen Negative 09/04/17 Range/Units 13:44 WBC (4.8-10.8) K/uL RBC (4.40-5.90) Mil/uL Hgb (12.0-18.0) g/dL Hct (35.0-51.0) % MCV (80.0-94.0) fL MCH (27.0-31.0) pg MCHC (33.0-37.0) g/dL RDW (11.5-14.5) % Plt Count (130-400) K/uL MPV (7.2-11.7) fL Neut % (Auto) (50.0-75.0) % Lymph % (Auto) (20.0-40.0) % [place] % (Auto) (0.0-10.0) % Eos % (Auto) (0.0-4.0) % Baso % (Auto) (0.0-2.0) % Neut # (Auto) (1.8-7.0) K/uL Lymph # (Auto) (1.0-4.3) K/uL [place] # (Auto) (0.0-0.8) K/uL Eos # (Auto) (0.0-0.7) K/uL Baso # (Auto) (0.0-0.2) K/uL Neutrophils % (Manual) (50-75) % Lymphocytes % (Manual) (20-40) % Monocytes % (Manual) (0-10) % Platelet Estimate (NORMAL) Poikilocytosis (manual Anisocytosis (manual) Ovalocytes Retic Count (0.5-1.5) % PT (9.7-12.2) SECONDS INR APTT (21-34) SECONDS Sodium 138 (132-148) mmol/L Potassium 7.0 H* D (3.6-5.2) mmol/L Chloride 103 (98-107) mmol/L Carbon Dioxide 18 L (22-30) mmol/L Anion Gap 24 H (10-20) BUN 82 H (9-20) mg/dL Creatinine 5.1 H (0.8-1.5) mg/dL Est GFR ( Amer) 13 Est GFR (Non-Af Amer) 11 POC Glucose (mg/dL) (65-110) mg/dL Random Glucose 138 H (75-110) mg/dL Hemoglobin A1c (4.2-6.5) % Calcium 9.0 (8.6-10.4) mg/dl Phosphorus (2.5-4.5) mg/dL Magnesium (1.6-2.3) mg/dL Iron (49-181) ug/dL TIBC (250-450) ug/dL % Saturation (20-55) Transferrin (206-381) mg/dL Ferritin ng/mL Total Bilirubin 0.6 (0.2-1.3) mg/dL AST 61 H (17-59) U/L ALT 19 L D (21-72) U/L Alkaline Phosphatase 96 (38-126) U/L Total Creatine Kinase (55-170) U/L CK-MB (Mass) (0.0-3.38) ng/mL Troponin I 13.1000 H* (0.00-0.120) ng/mL NT-Pro-B Natriuret Pep 66987 H (0-900) pg/mL Total Protein 7.8 (6.3-8.3) g/dL Albumin 3.6 (3.5-5.0) g/dL Globulin 4.3 H (2.2-3.9) gm/dL Albumin/Globulin Ratio 0.8 L (1.0-2.1) Triglycerides (0-149) mg/dL Cholesterol (0-199) mg/dL LDL Cholesterol Direct (0-129) mg/dL HDL Cholesterol (30-70) mg/dL Lipase 31 (23-300) U/L Vitamin B12 (239-931) pg/mL Folate ng/mL Procalcitonin (0.19-0.49) NG/ML Free T4 (0.78-2.19) ng/dL TSH 3rd Generation (0.46-4.68) mIU/L Urine Color (YELLOW) Urine Clarity (Clear) Urine pH (5.0-8.0) Ur Specific [place] (1.003-1.030) Urine Protein (NEGATIVE) mg/dL Urine Glucose (UA) (Normal) mg/dL Urine Ketones (NEGATIVE) mg/dL Urine Blood (NEGATIVE) Urine Nitrate (NEGATIVE) Urine Bilirubin (NEGATIVE) Urine Urobilinogen (0.2-1.0) mg/dL Ur Leukocyte Esterase (Negative) [place]/uL Urine WBC (Auto) (0-5) /hpf Urine RBC (Auto) (0-3) /hpf Urine WBC Clumps (Auto) (NONE) /hpf Ur Squamous Epith Cells (0-5) /hpf Urine Bacteria (<OCC) Ur Random Creatinine mg/dL U Random Total Protein (0.0-12.0) mg/dL Ur Random Sodium mmol/L Stool Occult Blood (NEGATIVE) Influenza Typ A,B (EIA) (NEGATIVE) Ur L.pneumophila Ag (NEGATIVE) Blood Type Antibody Screen Laboratory Results - last 24 hr 09/04/17 09/04/17 09/04/17 13:44 15:15 15:15 WBC RBC Hgb Hct MCV MCH MCHC RDW Plt Count MPV Neut % (Auto) Lymph % (Auto) [place] % (Auto) Eos % (Auto) Baso % (Auto) Neut # (Auto) Lymph # (Auto) [place] # (Auto) Eos # (Auto) Baso # (Auto) Neutrophils % (Manual) Lymphocytes % (Manual) Monocytes % (Manual) Platelet Estimate Poikilocytosis (manual Anisocytosis (manual) Ovalocytes Retic Count PT INR APTT Sodium 138 Potassium 7.0 H* D Chloride 103 Carbon Dioxide 18 L Anion Gap 24 H BUN 82 H Creatinine 5.1 H Est GFR ( Amer) 13 Est GFR (Non-Af Amer) 11 POC Glucose (mg/dL) Random Glucose 138 H Hemoglobin A1c Calcium 9.0 Phosphorus Magnesium Iron TIBC % Saturation Transferrin Ferritin Total Bilirubin 0.6 AST 61 H ALT 19 L D Alkaline Phosphatase 96 Total Creatine Kinase CK-MB (Mass) Troponin I 13.1000 H* NT-Pro-B Natriuret Pep [id number] H Total Protein 7.8 Albumin 3.6 Globulin 4.3 H Albumin/Globulin Ratio 0.8 L Triglycerides Cholesterol LDL Cholesterol Direct HDL Cholesterol Lipase 31 Vitamin B12 Folate Procalcitonin Free T4 TSH 3rd Generation Urine Color Urine Clarity Urine pH Ur Specific [place] Urine Protein Urine Glucose (UA) Urine Ketones Urine Blood Urine Nitrate Urine Bilirubin Urine Urobilinogen Ur Leukocyte Esterase Urine WBC (Auto) Urine RBC (Auto) Urine WBC Clumps (Auto) Ur Squamous Epith Cells Urine Bacteria Ur Random Creatinine U Random Total Protein Ur Random Sodium Stool Occult Blood Negative Influenza Typ A,B (EIA) Ur L.pneumophila Ag Blood Type O NEGATIVE Antibody Screen Negative 09/04/17 09/04/17 09/04/17 16:03 16:16 20:30 WBC RBC Hgb Hct MCV MCH MCHC RDW Plt Count MPV Neut % (Auto) Lymph % (Auto) [place] % (Auto) Eos % (Auto) Baso % (Auto) Neut # (Auto) Lymph # (Auto) [place] # (Auto) Eos # (Auto) Baso # (Auto) Neutrophils % (Manual) Lymphocytes % (Manual) Monocytes % (Manual) Platelet Estimate Poikilocytosis (manual Anisocytosis (manual) Ovalocytes Retic Count PT INR APTT Sodium 140 Potassium 6.1 H Chloride 105 Carbon Dioxide 17 L Anion Gap 24 H BUN 81 H Creatinine 4.8 H Est GFR ( Amer) 14 Est GFR (Non-Af Amer) 12 POC Glucose (mg/dL) 175 H Random Glucose 114 H Hemoglobin A1c Calcium 9.0 Phosphorus 5.5 H Magnesium 1.9 Iron TIBC % Saturation Transferrin Ferritin Total Bilirubin 0.6 AST 47 ALT 19 L Alkaline Phosphatase 89 Total Creatine Kinase 131 CK-MB (Mass) 7.64 H Troponin I 9.5000 H* NT-Pro-B Natriuret Pep Total Protein 7.8 Albumin 3.5 Globulin 4.3 H Albumin/Globulin Ratio 0.8 L Triglycerides 69 Cholesterol 125 LDL Cholesterol Direct 60 HDL Cholesterol 34 Lipase Vitamin B12 Folate Procalcitonin Free T4 TSH 3rd Generation 0.89 Urine Color Yellow Urine Clarity Hazy Urine pH 6.0 Ur Specific [place] 1.006 Urine Protein 1+ H Urine Glucose (UA) Normal Urine Ketones Negative Urine Blood 2+ H Urine Nitrate Negative Urine Bilirubin Negative Urine Urobilinogen Normal Ur Leukocyte Esterase 3+ H Urine WBC (Auto) 338 H Urine RBC (Auto) 20 H Urine WBC Clumps (Auto) Mod H Ur Squamous Epith Cells 1 Urine Bacteria Rare Ur Random Creatinine U Random Total Protein Ur Random Sodium Stool Occult Blood Influenza Typ A,B (EIA) Ur L.pneumophila Ag Blood Type Antibody Screen 09/04/17 09/04/17 09/04/17 20:30 20:30 20:30 WBC 13.4 H RBC 2.46 L Hgb 7.2 L Hct 21.6 L MCV 88.0 MCH 29.2 MCHC 33.2 RDW 15.3 H Plt Count 365 MPV 8.1 Neut % (Auto) 80.0 H Lymph % (Auto) 9.8 L [place] % (Auto) 10.0 Eos % (Auto) 0.0 Baso % (Auto) 0.2 Neut # (Auto) 10.7 H Lymph # (Auto) 1.3 [place] # (Auto) 1.3 H Eos # (Auto) 0.0 Baso # (Auto) 0.0 Neutrophils % (Manual) 80 H Lymphocytes % (Manual) 7 L Monocytes % (Manual) 13 H Platelet Estimate Normal Poikilocytosis (manual Slight Anisocytosis (manual) Slight Ovalocytes Slight Retic Count PT INR APTT Sodium Potassium Chloride Carbon Dioxide Anion Gap BUN Creatinine Est GFR ( Amer) Est GFR (Non-Af Amer) POC Glucose (mg/dL) Random Glucose Hemoglobin A1c 6.9 H Calcium Phosphorus Magnesium Iron TIBC % Saturation Transferrin Ferritin Total Bilirubin AST ALT Alkaline Phosphatase Total Creatine Kinase CK-MB (Mass) Troponin I NT-Pro-B Natriuret Pep Total Protein Albumin Globulin Albumin/Globulin Ratio Triglycerides Cholesterol LDL Cholesterol Direct HDL Cholesterol Lipase Vitamin B12 Folate Procalcitonin 6.26 H Free T4 TSH 3rd Generation Urine Color Urine Clarity Urine pH Ur Specific [place] Urine Protein Urine Glucose (UA) Urine Ketones Urine Blood Urine Nitrate Urine Bilirubin Urine Urobilinogen Ur Leukocyte Esterase Urine WBC (Auto) Urine RBC (Auto) Urine WBC Clumps (Auto) Ur Squamous Epith Cells Urine Bacteria Ur Random Creatinine U Random Total Protein Ur Random Sodium Stool Occult Blood Influenza Typ A,B (EIA) Ur L.pneumophila Ag Blood Type Antibody Screen 09/04/17 09/04/17 09/04/17 20:30 20:40 21:15 WBC RBC Hgb Hct MCV MCH MCHC RDW Plt Count MPV Neut % (Auto) Lymph % (Auto) [place] % (Auto) Eos % (Auto) Baso % (Auto) Neut # (Auto) Lymph # (Auto) [place] # (Auto) Eos # (Auto) Baso # (Auto) Neutrophils % (Manual) Lymphocytes % (Manual) Monocytes % (Manual) Platelet Estimate Poikilocytosis (manual Anisocytosis (manual) Ovalocytes Retic Count PT INR APTT Sodium Potassium Chloride Carbon Dioxide Anion Gap BUN Creatinine Est GFR ( Amer) Est GFR (Non-Af Amer) POC Glucose (mg/dL) 174 H Random Glucose Hemoglobin A1c Calcium Phosphorus Magnesium Iron TIBC % Saturation Transferrin Ferritin Total Bilirubin AST ALT Alkaline Phosphatase Total Creatine Kinase CK-MB (Mass) Troponin I NT-Pro-B Natriuret Pep Total Protein Albumin Globulin Albumin/Globulin Ratio Triglycerides Cholesterol LDL Cholesterol Direct HDL Cholesterol Lipase Vitamin B12 Folate Procalcitonin Free T4 1.39 TSH 3rd Generation Urine Color Urine Clarity Urine pH Ur Specific [place] Urine Protein Urine Glucose (UA) Urine Ketones Urine Blood Urine Nitrate Urine Bilirubin Urine Urobilinogen Ur Leukocyte Esterase Urine WBC (Auto) Urine RBC (Auto) Urine WBC Clumps (Auto) Ur Squamous Epith Cells Urine Bacteria Ur Random Creatinine U Random Total Protein Ur Random Sodium Stool Occult Blood Influenza Typ A,B (EIA) Negative for flu a/b Ur L.pneumophila Ag Negative Blood Type Antibody Screen 09/04/17 09/05/17 09/05/17 22:27 03:10 03:10 WBC 10.2 RBC 2.51 L Hgb 7.2 L Hct 22.2 L MCV 88.4 MCH 28.5 MCHC 32.3 L RDW 15.1 H Plt Count 325 MPV 7.8 Neut % (Auto) 75.5 H Lymph % (Auto) 13.6 L [place] % (Auto) 10.6 H Eos % (Auto) 0.2 Baso % (Auto) 0.1 Neut # (Auto) 7.7 H Lymph # (Auto) 1.4 [place] # (Auto) 1.1 H Eos # (Auto) 0.0 Baso # (Auto) 0.0 Neutrophils % (Manual) Lymphocytes % (Manual) Monocytes % (Manual) Platelet Estimate Poikilocytosis (manual Anisocytosis (manual) Ovalocytes Retic Count 1.3 PT 14.4 H INR 1.3 APTT 22 Sodium Potassium Chloride Carbon Dioxide Anion Gap BUN Creatinine Est GFR ( Amer) Est GFR (Non-Af Amer) POC Glucose (mg/dL) Random Glucose Hemoglobin A1c Calcium Phosphorus Magnesium Iron 16 L TIBC 235 L % Saturation 7 L Transferrin Ferritin Total Bilirubin AST ALT Alkaline Phosphatase Total Creatine Kinase CK-MB (Mass) Troponin I NT-Pro-B Natriuret Pep Total Protein Albumin Globulin Albumin/Globulin Ratio Triglycerides Cholesterol LDL Cholesterol Direct HDL Cholesterol Lipase Vitamin B12 Folate Procalcitonin Free T4 TSH 3rd Generation Urine Color Urine Clarity Urine pH Ur Specific [place] Urine Protein Urine Glucose (UA) Urine Ketones Urine Blood Urine Nitrate Urine Bilirubin Urine Urobilinogen Ur Leukocyte Esterase Urine WBC (Auto) Urine RBC (Auto) Urine WBC Clumps (Auto) Ur Squamous Epith Cells Urine Bacteria Ur Random Creatinine U Random Total Protein Ur Random Sodium Stool Occult Blood Influenza Typ A,B (EIA) Ur L.pneumophila Ag Blood Type Antibody Screen 09/05/17 09/05/17 09/05/17 03:10 03:10 07:53 WBC RBC Hgb Hct MCV MCH MCHC RDW Plt Count MPV Neut % (Auto) Lymph % (Auto) [place] % (Auto) Eos % (Auto) Baso % (Auto) Neut # (Auto) Lymph # (Auto) [place] # (Auto) Eos # (Auto) Baso # (Auto) Neutrophils % (Manual) Lymphocytes % (Manual) Monocytes % (Manual) Platelet Estimate Poikilocytosis (manual Anisocytosis (manual) Ovalocytes Retic Count PT INR APTT Sodium 142 Potassium 4.6 Chloride 108 H Carbon Dioxide 17 L Anion Gap 21 H BUN 72 H Creatinine 4.5 H Est GFR ( Amer) 15 Est GFR (Non-Af Amer) 13 POC Glucose (mg/dL) Random Glucose 164 H Hemoglobin A1c Calcium 8.4 L Phosphorus 5.0 H Magnesium 1.8 Iron TIBC % Saturation Transferrin 147.38 L Ferritin 198.0 Total Bilirubin 0.4 AST 36 ALT 19 L Alkaline Phosphatase 84 Total Creatine Kinase 86 CK-MB (Mass) 5.66 H Troponin I 7.7400 H* NT-Pro-B Natriuret Pep Total Protein 7.2 Albumin 3.1 L Globulin 4.1 H Albumin/Globulin Ratio 0.8 L Triglycerides Cholesterol LDL Cholesterol Direct HDL Cholesterol Lipase Vitamin B12 302 Folate 16.9 Procalcitonin Free T4 TSH 3rd Generation Urine Color Yellow Urine Clarity Hazy Urine pH 6.0 Ur Specific [place] 1.009 Urine Protein 2+ H Urine Glucose (UA) 1+ H Urine Ketones Negative Urine Blood 2+ H Urine Nitrate Negative Urine Bilirubin Negative Urine Urobilinogen Normal Ur Leukocyte Esterase 3+ H Urine WBC (Auto) 280 H Urine RBC (Auto) 29 H Urine WBC Clumps (Auto) Many H Ur Squamous Epith Cells < 1 Urine Bacteria Few H Ur Random Creatinine U Random Total Protein Ur Random Sodium Stool Occult Blood Influenza Typ A,B (EIA) Ur L.pneumophila Ag Blood Type Antibody Screen 09/05/17 09/05/17 09/05/17 08:19 08:39 11:04 WBC RBC Hgb Hct MCV MCH MCHC RDW Plt Count MPV Neut % (Auto) Lymph % (Auto) [place] % (Auto) Eos % (Auto) Baso % (Auto) Neut # (Auto) Lymph # (Auto) [place] # (Auto) Eos # (Auto) Baso # (Auto) Neutrophils % (Manual) Lymphocytes % (Manual) Monocytes % (Manual) Platelet Estimate Poikilocytosis (manual Anisocytosis (manual) Ovalocytes Retic Count PT INR APTT Sodium Potassium Chloride Carbon Dioxide Anion Gap BUN Creatinine Est GFR ( Amer) Est GFR (Non-Af Amer) POC Glucose (mg/dL) 143 H Random Glucose Hemoglobin A1c Calcium Phosphorus Magnesium Iron TIBC % Saturation Transferrin Ferritin Total Bilirubin AST ALT Alkaline Phosphatase Total Creatine Kinase 76 CK-MB (Mass) Troponin I NT-Pro-B Natriuret Pep Total Protein Albumin Globulin Albumin/Globulin Ratio Triglycerides Cholesterol LDL Cholesterol Direct HDL Cholesterol Lipase Vitamin B12 Folate Procalcitonin Free T4 TSH 3rd Generation Urine Color Urine Clarity Urine pH Ur Specific [place] Urine Protein Urine Glucose (UA) Urine Ketones Urine Blood Urine Nitrate Urine Bilirubin Urine Urobilinogen Ur Leukocyte Esterase Urine WBC (Auto) Urine RBC (Auto) Urine WBC Clumps (Auto) Ur Squamous Epith Cells Urine Bacteria Ur Random Creatinine 26.7 U Random Total Protein 119.0 H Ur Random Sodium 75 Stool Occult Blood Influenza Typ A,B (EIA) Ur L.pneumophila Ag Blood Type Antibody Screen 09/05/17 11:37 WBC RBC Hgb Hct MCV MCH MCHC RDW Plt Count MPV Neut % (Auto) Lymph % (Auto) [place] % (Auto) Eos % (Auto) Baso % (Auto) Neut # (Auto) Lymph # (Auto) [place] # (Auto) Eos # (Auto) Baso # (Auto) Neutrophils % (Manual) Lymphocytes % (Manual) Monocytes % (Manual) Platelet Estimate Poikilocytosis (manual Anisocytosis (manual) Ovalocytes Retic Count PT INR APTT Sodium Potassium Chloride Carbon Dioxide Anion Gap BUN Creatinine Est GFR ( Amer) Est GFR (Non-Af Amer) POC Glucose (mg/dL) 277 H Random Glucose Hemoglobin A1c Calcium Phosphorus Magnesium Iron TIBC % Saturation Transferrin Ferritin Total Bilirubin AST ALT Alkaline Phosphatase Total Creatine Kinase CK-MB (Mass) Troponin I NT-Pro-B Natriuret Pep Total Protein Albumin Globulin Albumin/Globulin Ratio Triglycerides Cholesterol LDL Cholesterol Direct HDL Cholesterol Lipase Vitamin B12 Folate Procalcitonin Free T4 TSH 3rd Generation Urine Color Urine Clarity Urine pH Ur Specific [place] Urine Protein Urine Glucose (UA) Urine Ketones Urine Blood Urine Nitrate Urine Bilirubin Urine Urobilinogen Ur Leukocyte Esterase Urine WBC (Auto) Urine RBC (Auto) Urine WBC Clumps (Auto) Ur Squamous Epith Cells Urine Bacteria Ur Random Creatinine U Random Total Protein Ur Random Sodium Stool Occult Blood Influenza Typ A,B (EIA) Ur L.pneumophila Ag Blood Type Antibody Screen EKG/Cardiology Studies: Cardiology / EKG Studies 09/04/17 14:58 EKG [ELECTROCARDIOGRAM] Stat Comment: Mode Of Transportation: PORTABLE Reason For Exam: chf Isolation: Contact Critical Care Progress Note - Nutrition Nutrition: Nutrition Category Date Time Status Consistent Carbohydrate [DIET] Diets 09/04/17 Lunch Active Assessment/Plan (1) Obstructive uropathy Assessment and plan: I have seen and examined the patient. Medical records, lab studies, and imaging were reviewed by me and a management plan was formulated on multidisciplinary rounds with resident Dr. Garner. I agree with their documented assessment and plan. Patient most likely has an obstructive uropathy with history of Prostate CA, causing his acute kidney injury. Urology - Dr. Pham consulted. Coude catheter would not pass. obtaining bladder scan and renal ultrasound to confirm. Hyperkalemia resolved. Hem/Onc - Dr. Maldonado consulted for probable metastatic prostate CA. Hold iron for now with current sepsis. Cerftriaxone for UTI with sepsis. Critical Care Time 35 minutes. Multi-disciplinary rounds were performed with house staff, nursing, speech therapy, respiratory therapy, pharmacy and nutrition with integrated input from the primary team/attending and other consulting services. The documented time is cumulative and includes review of patient data/exams/labs/chart review and examination of the patient on rounds and throughout the day; time is exclusive of any procedures or teaching time. Current Visit: Yes Status: Acute
[2017-09-05] MEDS ORDERED: Pantoprazole 40 mg EC Tab PO SCH (10:00)
--- NOTE | 2017-09-05 13:29 | CP.PCM.CON ---
History of Present Illness - History of Present Illness History of Present Illness: 87 year old male with a history of DM, HTN, elevated PSA with retroperitoneal lymphadenopathy and sclerotic bone lesions in 2017, admitted after being found down for 2 days, with hydronpehrosis and obstructive uropathy, and anemia. The patient denies having blood problems in the past. He reports to feeling weak and tired. He is not eating well and admits to losing weight. Review of his medical records shows imaging and lab work concerning for possible metastatic prostate cancer. It is unclear if he has had a prostate biopsy. Past medical history: DM, HTN, elevated PSA with retroperitoneal lymphadenopathy and sclerotic bone lesions in 2017 Past surgical history: Hernia repair Family history: Denies hematologic and oncologic problems Social history: Denies tobacco, alcohol, and illicit drug use. Allergies: NKA Review of systems: All remaining review of systems including HEENT, cardiovascular, respiratory, gastrointestinal, genitourinary, musculoskeletal, dermatologic, neurologic, and psychiatric are negative unless mentioned in the HPI. Past Patient History - Past Medical History & Family History Past Medical History?: Yes - Past Social History Smoking Status: Never Smoked - CARDIAC Hx Hypertension: Yes - PULMONARY Hx Respiratory Disorders: No - NEUROLOGICAL Hx Neurological Disorder: No - HEENT Hx HEENT Problems: No - RENAL Hx Chronic Kidney Disease: No - ENDOCRINE/METABOLIC Hx Endocrine Disorders: Yes Hx Diabetes Mellitus Type 2: Yes - HEMATOLOGICAL/ONCOLOGICAL Hx Blood Disorders: Yes Hx Anemia: Yes - INTEGUMENTARY Hx Dermatological Problems: No - MUSCULOSKELETAL/RHEUMATOLOGICAL Hx Falls: Yes - GASTROINTESTINAL Hx Gastrointestinal Disorders: No - GENITOURINARY/GYNECOLOGICAL Hx Genitourinary Disorders: Yes Hx Prostate Problems: Yes - PSYCHIATRIC Hx Substance Use: No - SURGICAL HISTORY Hx Surgeries: Yes Other/Comment: Prostate - ANESTHESIA Hx Anesthesia: No Hx Anesthesia Reactions: No Hx Malignant Hyperthermia: No Has any member of the family had a problem w/ anesthesia?: No Meds Allergies/Adverse Reactions: Allergies Allergy/AdvReac Type Severity Reaction Status Date / Time No Known Allergies Allergy Verified 09/04/17 12:12 - Medications Medications: Current Medications Aspirin (Aspirin Chewable) 81 mg PO DAILY [facility] Last Admin: 09/05/17 09:10 Dose: 81 mg Cyanocobalamin (Vitamin B12 1000 Mcg/Ml Inj) 1,000 mcg IM MWF [facility] Last Admin: 09/05/17 09:09 Dose: 1,000 mcg Ferrous Gluconate (Fergon) 324 mg PO TID [facility] Guaifenesin (Mucinex La) 600 mg PO BID [facility] Heparin Sodium (Porcine) (Heparin) 5,000 units SC Q12 [facility] Last Admin: 09/05/17 10:23 Dose: 5,000 units Ceftriaxone Sodium 1 gm/ (Sodium Chloride) 100 mls @ 100 mls/hr IVPB DAILY [facility] PRN Reason: Protocol Last Admin: 09/05/17 09:06 Dose: 100 mls/hr Azithromycin 500 mg/ Sodium (Chloride) 250 mls @ 250 mls/hr IVPB DAILY [facility] PRN Reason: Protocol Last Admin: 09/05/17 09:07 Dose: 250 mls/hr Sodium Chloride (Sodium Chloride 0.9%) 1,000 mls @ 150 mls/hr IV .[id number] [facility] Last Admin: 09/05/17 10:25 Dose: Not Given Insulin Aspart (Novolog) 0 unit SC ACHS [facility] PRN Reason: Protocol Last Admin: 09/05/17 07:30 Dose: Not Given Insulin Glargine (Lantus) 10 unit SC [facility] Last Admin: 09/04/17 21:24 Dose: 10 u Ipratropium [place] (Atrovent) 0.5 mg IH RQ6 [facility] Last Admin: 09/05/17 07:39 Dose: 0.5 mg Rosuvastatin Calcium (Crestor) 5 mg PO HS [facility] Last Admin: 09/04/17 21:25 Dose: 5 mg Saccharomyces Boulardii (Florastor) 250 mg PO BID [facility] Last Admin: 09/05/17 09:09 Dose: 250 mg Sodium Bicarbonate (Sodium Bicarbonate Tab) 650 mg PO BID [facility] Tamsulosin HCl (Flomax) 0.4 mg PO DAILY [facility] Vitamin B Complex/Vit C/Folic Acid (Nephro-Fe) 1 tab PO 0800 [facility] Physical Exam - Head Exam Head Exam: ATRAUMATIC - Eye Exam Eye Exam: Normal appearance - ENT Exam ENT Exam: Mucous Membranes Dry - Respiratory Exam Respiratory Exam: NORMAL BREATHING PATTERN - Cardiovascular Exam Cardiovascular Exam: +S1, +S2 - GI/Abdominal Exam GI & Abdominal Exam: Normal Bowel Sounds Results - Vital Signs Recent Vital Signs: Last Vital Signs Temp 97.8 F 09/05/17 12:20 Pulse 105 H 09/05/17 12:20 Resp 19 09/05/17 12:20 BP 113/63 09/05/17 12:20 Pulse Ox 96 09/05/17 11:52 - Labs Result Diagrams: 09/05/17 03:10 09/05/17 03:10 Labs: Laboratory Results - last 24 hr 09/04/17 09/04/17 09/04/17 13:44 13:44 15:15 WBC 14.5 H RBC 2.64 L Hgb 7.8 L Hct 23.2 L MCV 88.1 D MCH 29.6 MCHC 33.7 RDW 15.7 H Plt Count 382 MPV 8.6 Neut % (Auto) 79.7 H Lymph % (Auto) 8.8 L [place] % (Auto) 11.3 H Eos % (Auto) 0.1 Baso % (Auto) 0.1 Neut # (Auto) 11.6 H Lymph # (Auto) 1.3 [place] # (Auto) 1.6 H Eos # (Auto) 0.0 Baso # (Auto) 0.0 Neutrophils % (Manual) 82 H Band Neutrophils % 1 Lymphocytes % (Manual) 8 L Monocytes % (Manual) 9 Platelet Estimate Normal Hypochromasia (manual) Slight Poikilocytosis (manual Anisocytosis (manual) Slight Ovalocytes Retic Count PT INR APTT Sodium 138 Potassium 7.0 H* D Chloride 103 Carbon Dioxide 18 L Anion Gap 24 H BUN 82 H Creatinine 5.1 H Est GFR ( Amer) 13 Est GFR (Non-Af Amer) 11 POC Glucose (mg/dL) Random Glucose 138 H Hemoglobin A1c Calcium 9.0 Phosphorus Magnesium Iron TIBC % Saturation Transferrin Ferritin Total Bilirubin 0.6 AST 61 H ALT 19 L D Alkaline Phosphatase 96 Total Creatine Kinase CK-MB (Mass) Troponin I 13.1000 H* NT-Pro-B Natriuret Pep 18658 H Total Protein 7.8 Albumin 3.6 Globulin 4.3 H Albumin/Globulin Ratio 0.8 L Triglycerides Cholesterol LDL Cholesterol Direct HDL Cholesterol Lipase 31 Vitamin B12 Folate Procalcitonin Free T4 TSH 3rd Generation Urine Color Urine Clarity Urine pH Ur Specific [place] Urine Protein Urine Glucose (UA) Urine Ketones Urine Blood Urine Nitrate Urine Bilirubin Urine Urobilinogen Ur Leukocyte Esterase Urine WBC (Auto) Urine RBC (Auto) Urine WBC Clumps (Auto) Ur Squamous Epith Cells Urine Bacteria Ur Random Creatinine U Random Total Protein Ur Random Sodium Stool Occult Blood Influenza Typ A,B (EIA) Ur L.pneumophila Ag Blood Type O NEGATIVE Antibody Screen Negative 09/04/17 09/04/17 09/04/17 15:15 16:03 16:16 WBC RBC Hgb Hct MCV MCH MCHC RDW Plt Count MPV Neut % (Auto) Lymph % (Auto) [place] % (Auto) Eos % (Auto) Baso % (Auto) Neut # (Auto) Lymph # (Auto) [place] # (Auto) Eos # (Auto) Baso # (Auto) Neutrophils % (Manual) Band Neutrophils % Lymphocytes % (Manual) Monocytes % (Manual) Platelet Estimate Hypochromasia (manual) Poikilocytosis (manual Anisocytosis (manual) Ovalocytes Retic Count PT INR APTT Sodium Potassium Chloride Carbon Dioxide Anion Gap BUN Creatinine Est GFR ( Amer) Est GFR (Non-Af Amer) POC Glucose (mg/dL) 175 H Random Glucose Hemoglobin A1c Calcium Phosphorus Magnesium Iron TIBC % Saturation Transferrin Ferritin Total Bilirubin AST ALT Alkaline Phosphatase Total Creatine Kinase CK-MB (Mass) Troponin I NT-Pro-B Natriuret Pep Total Protein Albumin Globulin Albumin/Globulin Ratio Triglycerides Cholesterol LDL Cholesterol Direct HDL Cholesterol Lipase Vitamin B12 Folate Procalcitonin Free T4 TSH 3rd Generation Urine Color Yellow Urine Clarity Hazy Urine pH 6.0 Ur Specific [place] 1.006 Urine Protein 1+ H Urine Glucose (UA) Normal Urine Ketones Negative Urine Blood 2+ H Urine Nitrate Negative Urine Bilirubin Negative Urine Urobilinogen Normal Ur Leukocyte Esterase 3+ H Urine WBC (Auto) 338 H Urine RBC (Auto) 20 H Urine WBC Clumps (Auto) Mod H Ur Squamous Epith Cells 1 Urine Bacteria Rare Ur Random Creatinine U Random Total Protein Ur Random Sodium Stool Occult Blood Negative Influenza Typ A,B (EIA) Ur L.pneumophila Ag Blood Type Antibody Screen 09/04/17 09/04/17 09/04/17 20:30 20:30 20:30 WBC 13.4 H RBC 2.46 L Hgb 7.2 L Hct 21.6 L MCV 88.0 MCH 29.2 MCHC 33.2 RDW 15.3 H Plt Count 365 MPV 8.1 Neut % (Auto) 80.0 H Lymph % (Auto) 9.8 L [place] % (Auto) 10.0 Eos % (Auto) 0.0 Baso % (Auto) 0.2 Neut # (Auto) 10.7 H Lymph # (Auto) 1.3 [place] # (Auto) 1.3 H Eos # (Auto) 0.0 Baso # (Auto) 0.0 Neutrophils % (Manual) 80 H Band Neutrophils % Lymphocytes % (Manual) 7 L Monocytes % (Manual) 13 H Platelet Estimate Normal Hypochromasia (manual) Poikilocytosis (manual Slight Anisocytosis (manual) Slight Ovalocytes Slight Retic Count PT INR APTT Sodium 140 Potassium 6.1 H Chloride 105 Carbon Dioxide 17 L Anion Gap 24 H BUN 81 H Creatinine 4.8 H Est GFR ( Amer) 14 Est GFR (Non-Af Amer) 12 POC Glucose (mg/dL) Random Glucose 114 H Hemoglobin A1c 6.9 H Calcium 9.0 Phosphorus 5.5 H Magnesium 1.9 Iron TIBC % Saturation Transferrin Ferritin Total Bilirubin 0.6 AST 47 ALT 19 L Alkaline Phosphatase 89 Total Creatine Kinase 131 CK-MB (Mass) 7.64 H Troponin I 9.5000 H* NT-Pro-B Natriuret Pep Total Protein 7.8 Albumin 3.5 Globulin 4.3 H Albumin/Globulin Ratio 0.8 L Triglycerides 69 Cholesterol 125 LDL Cholesterol Direct 60 HDL Cholesterol 34 Lipase Vitamin B12 Folate Procalcitonin Free T4 TSH 3rd Generation 0.89 Urine Color Urine Clarity Urine pH Ur Specific [place] Urine Protein Urine Glucose (UA) Urine Ketones Urine Blood Urine Nitrate Urine Bilirubin Urine Urobilinogen Ur Leukocyte Esterase Urine WBC (Auto) Urine RBC (Auto) Urine WBC Clumps (Auto) Ur Squamous Epith Cells Urine Bacteria Ur Random Creatinine U Random Total Protein Ur Random Sodium Stool Occult Blood Influenza Typ A,B (EIA) Ur L.pneumophila Ag Blood Type Antibody Screen 09/04/17 09/04/17 09/04/17 20:30 20:30 20:40 WBC RBC Hgb Hct MCV MCH MCHC RDW Plt Count MPV Neut % (Auto) Lymph % (Auto) [place] % (Auto) Eos % (Auto) Baso % (Auto) Neut # (Auto) Lymph # (Auto) [place] # (Auto) Eos # (Auto) Baso # (Auto) Neutrophils % (Manual) Band Neutrophils % Lymphocytes % (Manual) Monocytes % (Manual) Platelet Estimate Hypochromasia (manual) Poikilocytosis (manual Anisocytosis (manual) Ovalocytes Retic Count PT INR APTT Sodium Potassium Chloride Carbon Dioxide Anion Gap BUN Creatinine Est GFR ( Amer) Est GFR (Non-Af Amer) POC Glucose (mg/dL) Random Glucose Hemoglobin A1c Calcium Phosphorus Magnesium Iron TIBC % Saturation Transferrin Ferritin Total Bilirubin AST ALT Alkaline Phosphatase Total Creatine Kinase CK-MB (Mass) Troponin I NT-Pro-B Natriuret Pep Total Protein Albumin Globulin Albumin/Globulin Ratio Triglycerides Cholesterol LDL Cholesterol Direct HDL Cholesterol Lipase Vitamin B12 Folate Procalcitonin 6.26 H Free T4 1.39 TSH 3rd Generation Urine Color Urine Clarity Urine pH Ur Specific [place] Urine Protein Urine Glucose (UA) Urine Ketones Urine Blood Urine Nitrate Urine Bilirubin Urine Urobilinogen Ur Leukocyte Esterase Urine WBC (Auto) Urine RBC (Auto) Urine WBC Clumps (Auto) Ur Squamous Epith Cells Urine Bacteria Ur Random Creatinine U Random Total Protein Ur Random Sodium Stool Occult Blood Influenza Typ A,B (EIA) Negative for flu a/b Ur L.pneumophila Ag Negative Blood Type Antibody Screen 09/04/17 09/04/17 09/05/17 21:15 22:27 03:10 WBC 10.2 RBC 2.51 L Hgb 7.2 L Hct 22.2 L MCV 88.4 MCH 28.5 MCHC 32.3 L RDW 15.1 H Plt Count 325 MPV 7.8 Neut % (Auto) 75.5 H Lymph % (Auto) 13.6 L [place] % (Auto) 10.6 H Eos % (Auto) 0.2 Baso % (Auto) 0.1 Neut # (Auto) 7.7 H Lymph # (Auto) 1.4 [place] # (Auto) 1.1 H Eos # (Auto) 0.0 Baso # (Auto) 0.0 Neutrophils % (Manual) Band Neutrophils % Lymphocytes % (Manual) Monocytes % (Manual) Platelet Estimate Hypochromasia (manual) Poikilocytosis (manual Anisocytosis (manual) Ovalocytes Retic Count 1.3 PT 14.4 H INR 1.3 APTT 22 Sodium Potassium Chloride Carbon Dioxide Anion Gap BUN Creatinine Est GFR ( Amer) Est GFR (Non-Af Amer) POC Glucose (mg/dL) 174 H Random Glucose Hemoglobin A1c Calcium Phosphorus Magnesium Iron TIBC % Saturation Transferrin Ferritin Total Bilirubin AST ALT Alkaline Phosphatase Total Creatine Kinase CK-MB (Mass) Troponin I NT-Pro-B Natriuret Pep Total Protein Albumin Globulin Albumin/Globulin Ratio Triglycerides Cholesterol LDL Cholesterol Direct HDL Cholesterol Lipase Vitamin B12 Folate Procalcitonin Free T4 TSH 3rd Generation Urine Color Urine Clarity Urine pH Ur Specific [place] Urine Protein Urine Glucose (UA) Urine Ketones Urine Blood Urine Nitrate Urine Bilirubin Urine Urobilinogen Ur Leukocyte Esterase Urine WBC (Auto) Urine RBC (Auto) Urine WBC Clumps (Auto) Ur Squamous Epith Cells Urine Bacteria Ur Random Creatinine U Random Total Protein Ur Random Sodium Stool Occult Blood Influenza Typ A,B (EIA) Ur L.pneumophila Ag Blood Type Antibody Screen 09/05/17 09/05/17 09/05/17 03:10 03:10 03:10 WBC RBC Hgb Hct MCV MCH MCHC RDW Plt Count MPV Neut % (Auto) Lymph % (Auto) [place] % (Auto) Eos % (Auto) Baso % (Auto) Neut # (Auto) Lymph # (Auto) [place] # (Auto) Eos # (Auto) Baso # (Auto) Neutrophils % (Manual) Band Neutrophils % Lymphocytes % (Manual) Monocytes % (Manual) Platelet Estimate Hypochromasia (manual) Poikilocytosis (manual Anisocytosis (manual) Ovalocytes Retic Count PT INR APTT Sodium 142 Potassium 4.6 Chloride 108 H Carbon Dioxide 17 L Anion Gap 21 H BUN 72 H Creatinine 4.5 H Est GFR ( Amer) 15 Est GFR (Non-Af Amer) 13 POC Glucose (mg/dL) Random Glucose 164 H Hemoglobin A1c Calcium 8.4 L Phosphorus 5.0 H Magnesium 1.8 Iron 16 L TIBC 235 L % Saturation 7 L Transferrin 147.38 L Ferritin 198.0 Total Bilirubin 0.4 AST 36 ALT 19 L Alkaline Phosphatase 84 Total Creatine Kinase 86 CK-MB (Mass) 5.66 H Troponin I 7.7400 H* NT-Pro-B Natriuret Pep Total Protein 7.2 Albumin 3.1 L Globulin 4.1 H Albumin/Globulin Ratio 0.8 L Triglycerides Cholesterol LDL Cholesterol Direct HDL Cholesterol Lipase Vitamin B12 302 Folate 16.9 Procalcitonin Free T4 TSH 3rd Generation Urine Color Urine Clarity Urine pH Ur Specific [place] Urine Protein Urine Glucose (UA) Urine Ketones Urine Blood Urine Nitrate Urine Bilirubin Urine Urobilinogen Ur Leukocyte Esterase Urine WBC (Auto) Urine RBC (Auto) Urine WBC Clumps (Auto) Ur Squamous Epith Cells Urine Bacteria Ur Random Creatinine U Random Total Protein Ur Random Sodium Stool Occult Blood Influenza Typ A,B (EIA) Ur L.pneumophila Ag Blood Type Antibody Screen 09/05/17 09/05/17 09/05/17 07:53 08:19 08:39 WBC RBC Hgb Hct MCV MCH MCHC RDW Plt Count MPV Neut % (Auto) Lymph % (Auto) [place] % (Auto) Eos % (Auto) Baso % (Auto) Neut # (Auto) Lymph # (Auto) [place] # (Auto) Eos # (Auto) Baso # (Auto) Neutrophils % (Manual) Band Neutrophils % Lymphocytes % (Manual) Monocytes % (Manual) Platelet Estimate Hypochromasia (manual) Poikilocytosis (manual Anisocytosis (manual) Ovalocytes Retic Count PT INR APTT Sodium Potassium Chloride Carbon Dioxide Anion Gap BUN Creatinine Est GFR ( Amer) Est GFR (Non-Af Amer) POC Glucose (mg/dL) 143 H Random Glucose Hemoglobin A1c Calcium Phosphorus Magnesium Iron TIBC % Saturation Transferrin Ferritin Total Bilirubin AST ALT Alkaline Phosphatase Total Creatine Kinase CK-MB (Mass) Troponin I NT-Pro-B Natriuret Pep Total Protein Albumin Globulin Albumin/Globulin Ratio Triglycerides Cholesterol LDL Cholesterol Direct HDL Cholesterol Lipase Vitamin B12 Folate Procalcitonin Free T4 TSH 3rd Generation Urine Color Yellow Urine Clarity Hazy Urine pH 6.0 Ur Specific [place] 1.009 Urine Protein 2+ H Urine Glucose (UA) 1+ H Urine Ketones Negative Urine Blood 2+ H Urine Nitrate Negative Urine Bilirubin Negative Urine Urobilinogen Normal Ur Leukocyte Esterase 3+ H Urine WBC (Auto) 280 H Urine RBC (Auto) 29 H Urine WBC Clumps (Auto) Many H Ur Squamous Epith Cells < 1 Urine Bacteria Few H Ur Random Creatinine 26.7 U Random Total Protein 119.0 H Ur Random Sodium 75 Stool Occult Blood Influenza Typ A,B (EIA) Ur L.pneumophila Ag Blood Type Antibody Screen 09/05/17 09/05/17 11:04 11:37 WBC RBC Hgb Hct MCV MCH MCHC RDW Plt Count MPV Neut % (Auto) Lymph % (Auto) [place] % (Auto) Eos % (Auto) Baso % (Auto) Neut # (Auto) Lymph # (Auto) [place] # (Auto) Eos # (Auto) Baso # (Auto) Neutrophils % (Manual) Band Neutrophils % Lymphocytes % (Manual) Monocytes % (Manual) Platelet Estimate Hypochromasia (manual) Poikilocytosis (manual Anisocytosis (manual) Ovalocytes Retic Count PT INR APTT Sodium Potassium Chloride Carbon Dioxide Anion Gap BUN Creatinine Est GFR ( Amer) Est GFR (Non-Af Amer) POC Glucose (mg/dL) 277 H Random Glucose Hemoglobin A1c Calcium Phosphorus Magnesium Iron TIBC % Saturation Transferrin Ferritin Total Bilirubin AST ALT Alkaline Phosphatase Total Creatine Kinase 76 CK-MB (Mass) Troponin I NT-Pro-B Natriuret Pep Total Protein Albumin Globulin Albumin/Globulin Ratio Triglycerides Cholesterol LDL Cholesterol Direct HDL Cholesterol Lipase Vitamin B12 Folate Procalcitonin Free T4 TSH 3rd Generation Urine Color Urine Clarity Urine pH Ur Specific [place] Urine Protein Urine Glucose (UA) Urine Ketones Urine Blood Urine Nitrate Urine Bilirubin Urine Urobilinogen Ur Leukocyte Esterase Urine WBC (Auto) Urine RBC (Auto) Urine WBC Clumps (Auto) Ur Squamous Epith Cells Urine Bacteria Ur Random Creatinine U Random Total Protein Ur Random Sodium Stool Occult Blood Influenza Typ A,B (EIA) Ur L.pneumophila Ag Blood Type Antibody Screen Assessment & Plan (1) Anemia Assessment and Plan: work up consistent with anemia of chronic disease ? CKD - anemia of CKD if worsening of bone metastasis, can have bone marrow infiltration of malignancy transfusion support PRN Status: Acute (2) Elevated PSA Assessment and Plan: elevated in 2017 with retroperitonal and sclerotic bone lesions suspicios for prostate cancer bone scan and prostate biopsy when more clinically stable Thank you for this interesting consult. Status: Acute
--- NOTE | 2017-09-05 13:31 | CARD ---
APPROVED REPORT EKG Measurement Heart [id number] <Conclusion> Sinus tachycardia Left axis deviation Anteroseptal infarct, age undetermined Abnormal ECG
--- NOTE | 2017-09-05 13:33 | CARD ---
APPROVED REPORT EKG Measurement Heart [id number] <Conclusion> Sinus rhythm with premature supraventricular complexes and premature ventricular complexes or fusion complexes Left anterior fascicular block Anteroseptal infarct, age undetermined ST & T wave abnormality, consider lateral ischemia Abnormal ECG
[2017-09-05] MEDS: guaiFENesin 600 mg ER Tab PO SCH ×2 (14:12→18:50)
--- NOTE | 2017-09-05 15:38 | US ---
PROCEDURE: Ultrasound of the Kidneys HISTORY: r/o hydronephrosis COMPARISON: None available. TECHNIQUE: Grayscale imaging was performed. FINDINGS: RIGHT KIDNEY: Measures: 13.1 cm. Normal in size, contour with diffuse increased echogenicity. There is severe hydronephrosis. No stone or solid mass lesion visualized. There is a 1.0 x 0.9 x 1.0 cm cyst in the upper pole. LEFT KIDNEY: Measures: 13.2 cm. Normal in size, contour with diffuse increased echogenicity. There is severe hydronephrosis. No stone or solid mass lesion visualized. There is a 3.2 x 1.8 x 2.1 cm simple cyst in the interpolar region. OTHER FINDINGS: None. IMPRESSION: Bilateral severe hydronephrosis. Chronic renal parenchymal disease.
--- NOTE | 2017-09-05 15:50 | CP.PCM.CON ---
History of Present Illness - History of Present Illness History of Present Illness: 87 year old male was brought to the ED by EMS for evaluation after he was allegedly found on the floor by his caregiver covered in urine and feces. As per EMS, patient was on the floor for 2 days and did not have anything to eat/ drink during this time. patient is unable to provide a clear history. Patient was found to have NSTEMI with troponin of 13.1. Potassium was 7.0. Patient was given Glucagon x 1, Novolin R 10 units, Kaexylate 30gm x 1, Calcium gluconate x 1 dose. Admitted to the ICU and started on IV antibiotics Allergies: NKDA Medications: See MAR Medical Hx: HTN, diabetes, anemia, prostate mass? HLD Urethral stricture Surgical Hx: Cystoscopy OIU/Balloon dilitation insertion of garcia, hernia repair , prostatectomy Social Hx: Former smoker quit 30 years ago; denies EtOH and illicit drug use. Lives at home alone, has two daughters Review of Systems - Review of Systems All systems: reviewed and no additional remarkable complaints except - Constitutional Constitutional: As Per HPI - EENT Eyes: absent: As Per HPI, Blind Spots, Blurred Vision, Change in Vision, Decreased Night Vision, Diplopia, Discharge, Dry Eye, Exophthalmos, Floaters, Irritation, Itchy Eyes, Loss of Peripheral Vision, Pain, Photophobia, Requires Corrective Lenses, Sees Flashes, Spots in Vision, Tunnel Vision, Other Visual Disturbances, Loss of Vision, Other Ears: absent: As Per HPI, Decreased Hearing, Ear Discharge, Ear Pain, Tinnitus, Abnormal Hearing, Disequilibrium, Dizziness, Other Nose/Mouth/Throat: absent: As Per HPI, Epistaxis, Nasal Congestion, Nasal Discharge, Nasal Obstruction, Nasal Trauma, Nose Pain, Post Nasal Drip, Sinus Pain, Sinus Pressure, Bleeding Gums, Change in Voice, Dental Pain, Dry Mouth, Dysphagia, Halitosis, Hoarsness, Lip Swelling, Mouth Lesions, Mouth Pain, Odynophagia, Sore Throat, Throat Swelling, Tongue Swelling, Facial Pain, Neck Pain, Neck Mass, Other - Cardiovascular Cardiovascular: As Per HPI - Respiratory Respiratory: absent: As Per HPI, Cough, Dyspnea, Hemoptysis, Dyspnea on Exertion , Wheezing, Snoring, Stridor, Pain on Inspiration, Chest Congestion, Excessive Mucous Production, Change in Mucous Color, Pain with Coughing, Other - Gastrointestinal Gastrointestinal: absent: As Per HPI, Abdominal Pain, Belching, Bloating, Change in Bowel Habits, Change in Stool Character, Coffee Ground Emesis, Constipation, Cramping, Diarrhea, Dyspepsia, Dysphagia, Early Satiety, Excessive Flatus, Fecal Incontinence, Heartburn, Hematemesis, Hematochezia, Loose Stools, Melena, Nausea, Odynophagia, Temesmus, Vomiting, Other - Genitourinary Genitourinary: As Per HPI - Musculoskeletal Musculoskeletal: absent: As Per HPI, Abnormal Gait, Arthralgias, Atrophy, Back Pain, Deformity, Joint Swelling, Limited Range of Motion, Loss of Height, Muscle Cramps, Muscle Weakness, Myalgias, Neck Pain, Numbness, Radiating Pain into Limb, Stiffness, Tingling, Other - Integumentary Integumentary: absent: As Per HPI, Acne, Alopecia, Bleeding Lesions, Change in Hair, Change in Nails, Change in Pigmentation, Changing Lesions, Dry Skin, Erythema, Furuncle, Hirsutism, Lesions, New Lesions, Non-Healing Lesions, Photosensitivity, Pruritus, Rash, Skin Pain, Skin Ulcer, Sores, Striae, Swelling , Unusual Bruising, Wounds, Jaundice, Other - Neurological Neurological: As Per HPI - Psychiatric Psychiatric: absent: As Per HPI, Abnormal Sleep Pattern, Anhedonia, Anxiety, Auditory Hallucinations, Behavioral Changes, Change in Appetite, Change in Libido, Confusion, Depression, Difficulty Concentrating, Hallucinations, Homicidal Ideation, Hopelessness, Irritability, Memory Loss, Mood Swings, Panic Attacks, Paranoia, Suicidal Ideation, Visual Hallucinations, Tactile Hallucinations, Other - Endocrine Endocrine: absent: As Per HPI, Change in Body Appearance, Change in Libido, Cold Intolorance, Deepening of Voice, Excessive Sweating, Fatigue, Flushing, Heat Intolorance, Increase in Ring/Shoe/Hat Size, Palpitations, Polydipsia, Polyphagia, Polyuria, Other - Hematologic/Lymphatic Hematologic: absent: As Per HPI, Easy Bleeding, Easy Bruising, Lymphadenopathy, Other Past Patient History - Past Medical History & Family History Past Medical History?: Yes - Past Social History Smoking Status: Never Smoked - CARDIAC Hx Hypertension: Yes - PULMONARY Hx Respiratory Disorders: No - NEUROLOGICAL Hx Neurological Disorder: No - HEENT Hx HEENT Problems: No - RENAL Hx Chronic Kidney Disease: No - ENDOCRINE/METABOLIC Hx Endocrine Disorders: Yes Hx Diabetes Mellitus Type 2: Yes - HEMATOLOGICAL/ONCOLOGICAL Hx Blood Disorders: Yes Hx Anemia: Yes - INTEGUMENTARY Hx Dermatological Problems: No - MUSCULOSKELETAL/RHEUMATOLOGICAL Hx Falls: Yes - GASTROINTESTINAL Hx Gastrointestinal Disorders: No - GENITOURINARY/GYNECOLOGICAL Hx Genitourinary Disorders: Yes Hx Prostate Problems: Yes - PSYCHIATRIC Hx Substance Use: No - SURGICAL HISTORY Hx Surgeries: Yes Other/Comment: Prostate - ANESTHESIA Hx Anesthesia: No Hx Anesthesia Reactions: No Hx Malignant Hyperthermia: No Has any member of the family had a problem w/ anesthesia?: No Meds Allergies/Adverse Reactions: Allergies Allergy/AdvReac Type Severity Reaction Status Date / Time No Known Allergies Allergy Verified 09/04/17 12:12 - Medications Medications: Current Medications Aspirin (Aspirin Chewable) 81 mg PO DAILY [facility] Last Admin: 09/05/17 09:10 Dose: 81 mg Cyanocobalamin (Vitamin B12 1000 Mcg/Ml Inj) 1,000 mcg IM MWF [facility] Last Admin: 09/05/17 09:09 Dose: 1,000 mcg Ferrous Gluconate (Fergon) 324 mg PO TID [facility] Last Admin: 09/05/17 14:14 Dose: 324 mg Guaifenesin (Mucinex La) 600 mg PO BID [facility] Last Admin: 09/05/17 14:12 Dose: 600 mg Heparin Sodium (Porcine) (Heparin) 5,000 units SC Q12 [facility] Last Admin: 09/05/17 10:23 Dose: 5,000 units Azithromycin 500 mg/ Sodium (Chloride) 250 mls @ 250 mls/hr IVPB DAILY [facility] PRN Reason: Protocol Last Admin: 09/05/17 09:07 Dose: 250 mls/hr Sodium Chloride (Sodium Chloride 0.9%) 1,000 mls @ 150 mls/hr IV .Q6H40M [facility] Last Admin: 09/05/17 10:25 Dose: Not Given Ceftriaxone Sodium 2 gm/ (Sodium Chloride) 100 mls @ 100 mls/hr IVPB DAILY [facility] PRN Reason: Protocol Insulin Aspart (Novolog) 0 unit SC ACHS [facility] PRN Reason: Protocol Last Admin: 09/05/17 13:00 Dose: 3 unit Insulin Glargine (Lantus) 10 unit SC HS [facility] Last Admin: 09/04/17 21:24 Dose: 10 u Ipratropium Conroy (Atrovent) 0.5 mg IH RQ6 [facility] Last Admin: 09/05/17 13:43 Dose: 0.5 mg Rosuvastatin Calcium (Crestor) 5 mg PO HS [facility] Last Admin: 09/04/17 21:25 Dose: 5 mg Saccharomyces Boulardii (Florastor) 250 mg PO BID [facility] Last Admin: 09/05/17 09:09 Dose: 250 mg Sodium Bicarbonate (Sodium Bicarbonate Tab) 650 mg PO BID [facility] Last Admin: 09/05/17 14:12 Dose: 650 mg Tamsulosin HCl (Flomax) 0.4 mg PO DAILY [facility] Last Admin: 09/05/17 14:12 Dose: 0.4 mg Vitamin B Complex/Vit C/Folic Acid (Nephro-Fe) 1 tab PO 0800 [facility] Physical Exam - Constitutional Appears: No Acute Distress, Confused, Chronically Ill - Head Exam Head Exam: ATRAUMATIC, NORMAL INSPECTION, NORMOCEPHALIC - Eye Exam Eye Exam: EOMI, PERRL. absent: Scleral icterus - ENT Exam ENT Exam: Mucous Membranes Dry, Normal External Ear Exam, Normal Oropharynx - Neck Exam Neck exam: Negative for: Lymphadenopathy, Thyromegaly - Respiratory Exam Respiratory Exam: Decreased Breath Sounds, Rhonchi - Cardiovascular Exam Cardiovascular Exam: Tachycardia, REGULAR RHYTHM, +S1, +S2 - GI/Abdominal Exam GI & Abdominal Exam: Diminished Bowel Sounds, Distended, Soft. absent: Rebound , Rigid, Tenderness - Rectal Exam Rectal Exam: Deferred - Exam Exam: NORMAL INSPECTION - Extremities Exam Extremities exam: Positive for: pedal pulses present. Negative for: calf tenderness, pedal edema, tenderness - Back Exam Back exam: absent: CVA tenderness (L), CVA tenderness (R), paraspinal tenderness - Neurological Exam Neurological exam: Alert, Altered, CN II-XII Intact - Psychiatric Exam Psychiatric exam: Depressed - Skin Skin Exam: Dry Results - Vital Signs Recent Vital Signs: Last Vital Signs Temp 98 F 09/05/17 15:00 Pulse 102 H 09/05/17 15:00 Resp 20 09/05/17 15:00 BP 109/60 09/05/17 15:00 Pulse Ox 99 09/05/17 12:30 - Labs Result Diagrams: 09/05/17 03:10 09/05/17 03:10 Labs: Laboratory Results - last 24 hr 09/04/17 09/04/17 09/04/17 15:15 16:03 16:16 WBC RBC Hgb Hct MCV MCH MCHC RDW Plt Count MPV Neut % (Auto) Lymph % (Auto) [place] % (Auto) Eos % (Auto) Baso % (Auto) Neut # (Auto) Lymph # (Auto) [place] # (Auto) Eos # (Auto) Baso # (Auto) Neutrophils % (Manual) Lymphocytes % (Manual) Monocytes % (Manual) Platelet Estimate Poikilocytosis (manual Anisocytosis (manual) Ovalocytes Retic Count PT INR APTT Sodium Potassium Chloride Carbon Dioxide Anion Gap BUN Creatinine Est GFR ( Amer) Est GFR (Non-Af Amer) POC Glucose (mg/dL) 175 H Random Glucose Hemoglobin A1c Calcium Phosphorus Magnesium Iron TIBC % Saturation Transferrin Ferritin Total Bilirubin AST ALT Alkaline Phosphatase Total Creatine Kinase CK-MB (Mass) Troponin I Total Protein Albumin Globulin Albumin/Globulin Ratio Triglycerides Cholesterol LDL Cholesterol Direct HDL Cholesterol Vitamin B12 Folate Procalcitonin Free T4 TSH 3rd Generation Urine Color Yellow Urine Clarity Hazy Urine pH 6.0 Ur Specific [place] 1.006 Urine Protein 1+ H Urine Glucose (UA) Normal Urine Ketones Negative Urine Blood 2+ H Urine Nitrate Negative Urine Bilirubin Negative Urine Urobilinogen Normal Ur Leukocyte Esterase 3+ H Urine WBC (Auto) 338 H Urine RBC (Auto) 20 H Urine WBC Clumps (Auto) Mod H Ur Squamous Epith Cells 1 Urine Bacteria Rare Ur Random Creatinine U Random Total Protein Ur Random Sodium Influenza Typ A,B (EIA) Ur L.pneumophila Ag Blood Type O NEGATIVE Antibody Screen Negative 09/04/17 09/04/17 09/04/17 20:30 20:30 20:30 WBC 13.4 H RBC 2.46 L Hgb 7.2 L Hct 21.6 L MCV 88.0 MCH 29.2 MCHC 33.2 RDW 15.3 H Plt Count 365 MPV 8.1 Neut % (Auto) 80.0 H Lymph % (Auto) 9.8 L [place] % (Auto) 10.0 Eos % (Auto) 0.0 Baso % (Auto) 0.2 Neut # (Auto) 10.7 H Lymph # (Auto) 1.3 [place] # (Auto) 1.3 H Eos # (Auto) 0.0 Baso # (Auto) 0.0 Neutrophils % (Manual) 80 H Lymphocytes % (Manual) 7 L Monocytes % (Manual) 13 H Platelet Estimate Normal Poikilocytosis (manual Slight Anisocytosis (manual) Slight Ovalocytes Slight Retic Count PT INR APTT Sodium 140 Potassium 6.1 H Chloride 105 Carbon Dioxide 17 L Anion Gap 24 H BUN 81 H Creatinine 4.8 H Est GFR ( Amer) 14 Est GFR (Non-Af Amer) 12 POC Glucose (mg/dL) Random Glucose 114 H Hemoglobin A1c 6.9 H Calcium 9.0 Phosphorus 5.5 H Magnesium 1.9 Iron TIBC % Saturation Transferrin Ferritin Total Bilirubin 0.6 AST 47 ALT 19 L Alkaline Phosphatase 89 Total Creatine Kinase 131 CK-MB (Mass) 7.64 H Troponin I 9.5000 H* Total Protein 7.8 Albumin 3.5 Globulin 4.3 H Albumin/Globulin Ratio 0.8 L Triglycerides 69 Cholesterol 125 LDL Cholesterol Direct 60 HDL Cholesterol 34 Vitamin B12 Folate Procalcitonin Free T4 TSH 3rd Generation 0.89 Urine Color Urine Clarity Urine pH Ur Specific [place] Urine Protein Urine Glucose (UA) Urine Ketones Urine Blood Urine Nitrate Urine Bilirubin Urine Urobilinogen Ur Leukocyte Esterase Urine WBC (Auto) Urine RBC (Auto) Urine WBC Clumps (Auto) Ur Squamous Epith Cells Urine Bacteria Ur Random Creatinine U Random Total Protein Ur Random Sodium Influenza Typ A,B (EIA) Ur L.pneumophila Ag Blood Type Antibody Screen 09/04/17 09/04/17 09/04/17 20:30 20:30 20:40 WBC RBC Hgb Hct MCV MCH MCHC RDW Plt Count MPV Neut % (Auto) Lymph % (Auto) [place] % (Auto) Eos % (Auto) Baso % (Auto) Neut # (Auto) Lymph # (Auto) [place] # (Auto) Eos # (Auto) Baso # (Auto) Neutrophils % (Manual) Lymphocytes % (Manual) Monocytes % (Manual) Platelet Estimate Poikilocytosis (manual Anisocytosis (manual) Ovalocytes Retic Count PT INR APTT Sodium Potassium Chloride Carbon Dioxide Anion Gap BUN Creatinine Est GFR ( Amer) Est GFR (Non-Af Amer) POC Glucose (mg/dL) Random Glucose Hemoglobin A1c Calcium Phosphorus Magnesium Iron TIBC % Saturation Transferrin Ferritin Total Bilirubin AST ALT Alkaline Phosphatase Total Creatine Kinase CK-MB (Mass) Troponin I Total Protein Albumin Globulin Albumin/Globulin Ratio Triglycerides Cholesterol LDL Cholesterol Direct HDL Cholesterol Vitamin B12 Folate Procalcitonin 6.26 H Free T4 1.39 TSH 3rd Generation Urine Color Urine Clarity Urine pH Ur Specific [place] Urine Protein Urine Glucose (UA) Urine Ketones Urine Blood Urine Nitrate Urine Bilirubin Urine Urobilinogen Ur Leukocyte Esterase Urine WBC (Auto) Urine RBC (Auto) Urine WBC Clumps (Auto) Ur Squamous Epith Cells Urine Bacteria Ur Random Creatinine U Random Total Protein Ur Random Sodium Influenza Typ A,B (EIA) Negative for flu a/b Ur L.pneumophila Ag Negative Blood Type Antibody Screen 09/04/17 09/04/17 09/05/17 21:15 22:27 03:10 WBC 10.2 RBC 2.51 L Hgb 7.2 L Hct 22.2 L MCV 88.4 MCH 28.5 MCHC 32.3 L RDW 15.1 H Plt Count 325 MPV 7.8 Neut % (Auto) 75.5 H Lymph % (Auto) 13.6 L [place] % (Auto) 10.6 H Eos % (Auto) 0.2 Baso % (Auto) 0.1 Neut # (Auto) 7.7 H Lymph # (Auto) 1.4 [place] # (Auto) 1.1 H Eos # (Auto) 0.0 Baso # (Auto) 0.0 Neutrophils % (Manual) Lymphocytes % (Manual) Monocytes % (Manual) Platelet Estimate Poikilocytosis (manual Anisocytosis (manual) Ovalocytes Retic Count 1.3 PT 14.4 H INR 1.3 APTT 22 Sodium Potassium Chloride Carbon Dioxide Anion Gap BUN Creatinine Est GFR ( Amer) Est GFR (Non-Af Amer) POC Glucose (mg/dL) 174 H Random Glucose Hemoglobin A1c Calcium Phosphorus Magnesium Iron TIBC % Saturation Transferrin Ferritin Total Bilirubin AST ALT Alkaline Phosphatase Total Creatine Kinase CK-MB (Mass) Troponin I Total Protein Albumin Globulin Albumin/Globulin Ratio Triglycerides Cholesterol LDL Cholesterol Direct HDL Cholesterol Vitamin B12 Folate Procalcitonin Free T4 TSH 3rd Generation Urine Color Urine Clarity Urine pH Ur Specific [place] Urine Protein Urine Glucose (UA) Urine Ketones Urine Blood Urine Nitrate Urine Bilirubin Urine Urobilinogen Ur Leukocyte Esterase Urine WBC (Auto) Urine RBC (Auto) Urine WBC Clumps (Auto) Ur Squamous Epith Cells Urine Bacteria Ur Random Creatinine U Random Total Protein Ur Random Sodium Influenza Typ A,B (EIA) Ur L.pneumophila Ag Blood Type Antibody Screen 09/05/17 09/05/17 09/05/17 03:10 03:10 03:10 WBC RBC Hgb Hct MCV MCH MCHC RDW Plt Count MPV Neut % (Auto) Lymph % (Auto) [place] % (Auto) Eos % (Auto) Baso % (Auto) Neut # (Auto) Lymph # (Auto) [place] # (Auto) Eos # (Auto) Baso # (Auto) Neutrophils % (Manual) Lymphocytes % (Manual) Monocytes % (Manual) Platelet Estimate Poikilocytosis (manual Anisocytosis (manual) Ovalocytes Retic Count PT INR APTT Sodium 142 Potassium 4.6 Chloride 108 H Carbon Dioxide 17 L Anion Gap 21 H BUN 72 H Creatinine 4.5 H Est GFR ( Amer) 15 Est GFR (Non-Af Amer) 13 POC Glucose (mg/dL) Random Glucose 164 H Hemoglobin A1c Calcium 8.4 L Phosphorus 5.0 H Magnesium 1.8 Iron 16 L TIBC 235 L % Saturation 7 L Transferrin 147.38 L Ferritin 198.0 Total Bilirubin 0.4 AST 36 ALT 19 L Alkaline Phosphatase 84 Total Creatine Kinase 86 CK-MB (Mass) 5.66 H Troponin I 7.7400 H* Total Protein 7.2 Albumin 3.1 L Globulin 4.1 H Albumin/Globulin Ratio 0.8 L Triglycerides Cholesterol LDL Cholesterol Direct HDL Cholesterol Vitamin B12 302 Folate 16.9 Procalcitonin Free T4 TSH 3rd Generation Urine Color Urine Clarity Urine pH Ur Specific [place] Urine Protein Urine Glucose (UA) Urine Ketones Urine Blood Urine Nitrate Urine Bilirubin Urine Urobilinogen Ur Leukocyte Esterase Urine WBC (Auto) Urine RBC (Auto) Urine WBC Clumps (Auto) Ur Squamous Epith Cells Urine Bacteria Ur Random Creatinine U Random Total Protein Ur Random Sodium Influenza Typ A,B (EIA) Ur L.pneumophila Ag Blood Type Antibody Screen 09/05/17 09/05/17 09/05/17 07:53 08:19 08:39 WBC RBC Hgb Hct MCV MCH MCHC RDW Plt Count MPV Neut % (Auto) Lymph % (Auto) [place] % (Auto) Eos % (Auto) Baso % (Auto) Neut # (Auto) Lymph # (Auto) [place] # (Auto) Eos # (Auto) Baso # (Auto) Neutrophils % (Manual) Lymphocytes % (Manual) Monocytes % (Manual) Platelet Estimate Poikilocytosis (manual Anisocytosis (manual) Ovalocytes Retic Count PT INR APTT Sodium Potassium Chloride Carbon Dioxide Anion Gap BUN Creatinine Est GFR ( Amer) Est GFR (Non-Af Amer) POC Glucose (mg/dL) 143 H Random Glucose Hemoglobin A1c Calcium Phosphorus Magnesium Iron TIBC % Saturation Transferrin Ferritin Total Bilirubin AST ALT Alkaline Phosphatase Total Creatine Kinase CK-MB (Mass) Troponin I Total Protein Albumin Globulin Albumin/Globulin Ratio Triglycerides Cholesterol LDL Cholesterol Direct HDL Cholesterol Vitamin B12 Folate Procalcitonin Free T4 TSH 3rd Generation Urine Color Yellow Urine Clarity Hazy Urine pH 6.0 Ur Specific [place] 1.009 Urine Protein 2+ H Urine Glucose (UA) 1+ H Urine Ketones Negative Urine Blood 2+ H Urine Nitrate Negative Urine Bilirubin Negative Urine Urobilinogen Normal Ur Leukocyte Esterase 3+ H Urine WBC (Auto) 280 H Urine RBC (Auto) 29 H Urine WBC Clumps (Auto) Many H Ur Squamous Epith Cells < 1 Urine Bacteria Few H Ur Random Creatinine 26.7 U Random Total Protein 119.0 H Ur Random Sodium 75 Influenza Typ A,B (EIA) Ur L.pneumophila Ag Blood Type Antibody Screen 09/05/17 09/05/17 11:04 11:37 WBC RBC Hgb Hct MCV MCH MCHC RDW Plt Count MPV Neut % (Auto) Lymph % (Auto) [place] % (Auto) Eos % (Auto) Baso % (Auto) Neut # (Auto) Lymph # (Auto) [place] # (Auto) Eos # (Auto) Baso # (Auto) Neutrophils % (Manual) Lymphocytes % (Manual) Monocytes % (Manual) Platelet Estimate Poikilocytosis (manual Anisocytosis (manual) Ovalocytes Retic Count PT INR APTT Sodium Potassium Chloride Carbon Dioxide Anion Gap BUN Creatinine Est GFR ( Amer) Est GFR (Non-Af Amer) POC Glucose (mg/dL) 277 H Random Glucose Hemoglobin A1c Calcium Phosphorus Magnesium Iron TIBC % Saturation Transferrin Ferritin Total Bilirubin AST ALT Alkaline Phosphatase Total Creatine Kinase 76 CK-MB (Mass) Troponin I Total Protein Albumin Globulin Albumin/Globulin Ratio Triglycerides Cholesterol LDL Cholesterol Direct HDL Cholesterol Vitamin B12 Folate Procalcitonin Free T4 TSH 3rd Generation Urine Color Urine Clarity Urine pH Ur Specific [place] Urine Protein Urine Glucose (UA) Urine Ketones Urine Blood Urine Nitrate Urine Bilirubin Urine Urobilinogen Ur Leukocyte Esterase Urine WBC (Auto) Urine RBC (Auto) Urine WBC Clumps (Auto) Ur Squamous Epith Cells Urine Bacteria Ur Random Creatinine U Random Total Protein Ur Random Sodium Influenza Typ A,B (EIA) Ur L.pneumophila Ag Blood Type Antibody Screen Assessment & Plan (1) NSTEMI (non-ST elevated myocardial infarction) Status: Acute (2) Obstructive uropathy Status: Acute (3) Diabetes mellitus Status: Acute (4) UTI (urinary tract infection) Status: Acute (5) SHANNAN (acute kidney injury) Status: Acute - Assessment and Plan (Free Text) Assessment: cont iv antibiotics awaiting cultures consider eval cardiio on board supportive care
--- NOTE | 2017-09-05 16:58 | CP.PCM.CON ---
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 Maintain hemodynamics stable, avoid hypotension, Patient not on ACEI/ARB due to SHANNAN Monitor Input/Output, daily weights and renal function with basic metabolic panel Recommend Garcia catheter We'll start iron supplements, sodium bicarbonate 650 mg 2 times a day and Flomax 0.4 mg once a day Consider and Heme evaluation as well Considering high BNP and abnormal chest x-ray, agree with DC IV fluid Patient getting PRBC today. will defer use of WAYNE to heme/onc Workup for other causes for Ckd and anemia such as myeloma, will consider if renal fxn remains low after garcia Dose meds/antibiotics for reduced GFR. Avoid fleets enema/magnesium based laxatives. Avoid nephrotoxins/NSAIDs/ iodinated contrast (unless needed emergently) Glycemic control Further work up/management as per primary team Thanks for allowing me to participate in care of your patient. Will follow patient with you. Please call if any Qs. 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 Patient found to have acute kidney injury acute HI hyperkalemia pneumonia and severe anemia Denies OTC/herbal meds or NSAIDs No recent iodinated contrast exposure. No obvious episodes of low BP Except lowest blood pressure 98/55 Patient has condom catheter ROS: Cardiovascular: No chest pain. Pulmonary: No shortness of breath Gastrointestinal: denies abdominal pain No nausea. No vomiting. Genitourinary: No pain while urinating. Denies blood in urine. All other negative except as mentioned in HPI. Physical Examination: General Appearance: Comfortable, in no acute respiratory distress, co-operative . Vitals reviewed and noted as below Head; Atraumatic, normocephalic ENT: no ulcers no thrush. Tongue is midline. Oropharynx: no rash or ulcers. Dry tongue, has hoarseness of voice EYES: Pupils are equal, round and reactive to light accommodation. Eye muscles and extraocular movement intact. Sclera is anicteric. Neck; supple no lymphadenopathy, no thyromegaly or bruit Lungs: Normal respiratory rate/effort. Breath sounds bilateral Decreased at bases with few crackles Heart: Normal rate. s1s2 normal. No rub or gallop. Extremities: no edema. No varicose veins Neurological: Patient is alert, awake and No focal deficit. Strength bilateral appropriate and equal Skin: Warm and dry. Normal turgor. No rash. Palpitation: Normal elasticity for age Abdomen: Abdomen is soft. Bowel sounds +. There is no abdominal tenderness, no guarding/rigidity no organomegaly Psych: Limited insight insight and Flat affect/mood MSK: no joint tenderness or swelling. Digits and nails normal, no deformity : kidney not palpable But able to percuss bladder dysplasia mucous Labs/imaging reviewed. Past medical history, past surgical history, family history, social history, allergy reviewed and noted as below Family hx: no hx of CKD. Rest non-contributory Renal sonogram severe bilateral hydronephrosis BNP 70,000 Urine protein creatinine ratio 2 gram Iron saturation 7% ferritin 198 Past Patient History - Past Medical History & Family History Past Medical History?: Yes - Past Social History Smoking Status: Never Smoked - CARDIAC Hx Hypertension: Yes - PULMONARY Hx Respiratory Disorders: No - NEUROLOGICAL Hx Neurological Disorder: No - HEENT Hx HEENT Problems: No - RENAL Hx Chronic Kidney Disease: No - ENDOCRINE/METABOLIC Hx Endocrine Disorders: Yes Hx Diabetes Mellitus Type 2: Yes - HEMATOLOGICAL/ONCOLOGICAL Hx Blood Disorders: Yes Hx Anemia: Yes - INTEGUMENTARY Hx Dermatological Problems: No - MUSCULOSKELETAL/RHEUMATOLOGICAL Hx Falls: Yes - GASTROINTESTINAL Hx Gastrointestinal Disorders: No - GENITOURINARY/GYNECOLOGICAL Hx Genitourinary Disorders: Yes Hx Prostate Problems: Yes - PSYCHIATRIC Hx Substance Use: No - SURGICAL HISTORY Hx Surgeries: Yes Other/Comment: Prostate - ANESTHESIA Hx Anesthesia: No Hx Anesthesia Reactions: No Hx Malignant Hyperthermia: No Has any member of the family had a problem w/ anesthesia?: No Meds Allergies/Adverse Reactions: Allergies Allergy/AdvReac Type Severity Reaction Status Date / Time No Known Allergies Allergy Verified 09/04/17 12:12 - Medications Medications: Current Medications Aspirin (Aspirin Chewable) 81 mg PO DAILY [facility] Last Admin: 09/05/17 09:10 Dose: 81 mg Cyanocobalamin (Vitamin B12 1000 Mcg/Ml Inj) 1,000 mcg IM MWF [facility] Last Admin: 09/05/17 09:09 Dose: 1,000 mcg Ferrous Gluconate (Fergon) 324 mg PO TID [facility] Last Admin: 09/05/17 14:14 Dose: 324 mg Guaifenesin (Mucinex La) 600 mg PO BID [facility] Last Admin: 09/05/17 14:12 Dose: 600 mg Heparin Sodium (Porcine) (Heparin) 5,000 units SC Q12 [facility] Last Admin: 09/05/17 10:23 Dose: 5,000 units Azithromycin 500 mg/ Sodium (Chloride) 250 mls @ 250 mls/hr IVPB DAILY [facility] PRN Reason: Protocol Last Admin: 09/05/17 09:07 Dose: 250 mls/hr Sodium Chloride (Sodium Chloride 0.9%) 1,000 mls @ 150 mls/hr IV .[id number] [facility] Last Admin: 09/05/17 10:25 Dose: Not Given Ceftriaxone Sodium 2 gm/ (Sodium Chloride) 100 mls @ 100 mls/hr IVPB DAILY [facility] PRN Reason: Protocol Insulin Aspart (Novolog) 0 unit SC ACHS [facility] PRN Reason: Protocol Last Admin: 09/05/17 13:00 Dose: 3 unit Insulin Glargine (Lantus) 10 unit SC HS [facility] Last Admin: 09/04/17 21:24 Dose: 10 u Ipratropium [place] (Atrovent) 0.5 mg IH RQ6 [facility] Last Admin: 09/05/17 13:43 Dose: 0.5 mg Rosuvastatin Calcium (Crestor) 5 mg PO HS [facility] Last Admin: 09/04/17 21:25 Dose: 5 mg Saccharomyces Boulardii (Florastor) 250 mg PO BID [facility] Last Admin: 09/05/17 09:09 Dose: 250 mg Sodium Bicarbonate (Sodium Bicarbonate Tab) 650 mg PO BID [facility] Last Admin: 09/05/17 14:12 Dose: 650 mg Tamsulosin HCl (Flomax) 0.4 mg PO DAILY [facility] Last Admin: 09/05/17 14:12 Dose: 0.4 mg Vitamin B Complex/Vit C/Folic Acid (Nephro-Fe) 1 tab PO 0800 [facility] Results - Vital Signs Recent Vital Signs: Last Vital Signs Temp 98 F 09/05/17 15:00 Pulse 102 H 09/05/17 15:00 Resp 20 09/05/17 15:00 BP 109/60 09/05/17 15:00 Pulse Ox 99 09/05/17 12:30 - Labs Result Diagrams: 09/05/17 03:10 09/05/17 03:10 Labs: Laboratory Results - last 24 hr 09/04/17 09/04/17 09/04/17 15:15 20:30 20:30 WBC RBC Hgb Hct MCV MCH MCHC RDW Plt Count MPV Neut % (Auto) Lymph % (Auto) [place] % (Auto) Eos % (Auto) Baso % (Auto) Neut # (Auto) Lymph # (Auto) [place] # (Auto) Eos # (Auto) Baso # (Auto) Neutrophils % (Manual) Lymphocytes % (Manual) Monocytes % (Manual) Platelet Estimate Poikilocytosis (manual Anisocytosis (manual) Ovalocytes Retic Count PT INR APTT Sodium 140 Potassium 6.1 H Chloride 105 Carbon Dioxide 17 L Anion Gap 24 H BUN 81 H Creatinine 4.8 H Est GFR ( Amer) 14 Est GFR (Non-Af Amer) 12 POC Glucose (mg/dL) Random Glucose 114 H Hemoglobin A1c 6.9 H Calcium 9.0 Phosphorus 5.5 H Magnesium 1.9 Iron TIBC % Saturation Transferrin Ferritin Total Bilirubin 0.6 AST 47 ALT 19 L Alkaline Phosphatase 89 Total Creatine Kinase 131 CK-MB (Mass) 7.64 H Troponin I 9.5000 H* Total Protein 7.8 Albumin 3.5 Globulin 4.3 H Albumin/Globulin Ratio 0.8 L Triglycerides 69 Cholesterol 125 LDL Cholesterol Direct 60 HDL Cholesterol 34 Vitamin B12 Folate Procalcitonin Free T4 TSH 3rd Generation 0.89 Urine Color Urine Clarity Urine pH Ur Specific [place] Urine Protein Urine Glucose (UA) Urine Ketones Urine Blood Urine Nitrate Urine Bilirubin Urine Urobilinogen Ur Leukocyte Esterase Urine WBC (Auto) Urine RBC (Auto) Urine WBC Clumps (Auto) Ur Squamous Epith Cells Urine Bacteria Ur Random Creatinine U Random Total Protein Ur Random Sodium Influenza Typ A,B (EIA) Ur L.pneumophila Ag Blood Type O NEGATIVE Antibody Screen Negative 09/04/17 09/04/17 09/04/17 20:30 20:30 20:30 WBC 13.4 H RBC 2.46 L Hgb 7.2 L Hct 21.6 L MCV 88.0 MCH 29.2 MCHC 33.2 RDW 15.3 H Plt Count 365 MPV 8.1 Neut % (Auto) 80.0 H Lymph % (Auto) 9.8 L [place] % (Auto) 10.0 Eos % (Auto) 0.0 Baso % (Auto) 0.2 Neut # (Auto) 10.7 H Lymph # (Auto) 1.3 [place] # (Auto) 1.3 H Eos # (Auto) 0.0 Baso # (Auto) 0.0 Neutrophils % (Manual) 80 H Lymphocytes % (Manual) 7 L Monocytes % (Manual) 13 H Platelet Estimate Normal Poikilocytosis (manual Slight Anisocytosis (manual) Slight Ovalocytes Slight Retic Count PT INR APTT Sodium Potassium Chloride Carbon Dioxide Anion Gap BUN Creatinine Est GFR ( Amer) Est GFR (Non-Af Amer) POC Glucose (mg/dL) Random Glucose Hemoglobin A1c Calcium Phosphorus Magnesium Iron TIBC % Saturation Transferrin Ferritin Total Bilirubin AST ALT Alkaline Phosphatase Total Creatine Kinase CK-MB (Mass) Troponin I Total Protein Albumin Globulin Albumin/Globulin Ratio Triglycerides Cholesterol LDL Cholesterol Direct HDL Cholesterol Vitamin B12 Folate Procalcitonin 6.26 H Free T4 1.39 TSH 3rd Generation Urine Color Urine Clarity Urine pH Ur Specific [place] Urine Protein Urine Glucose (UA) Urine Ketones Urine Blood Urine Nitrate Urine Bilirubin Urine Urobilinogen Ur Leukocyte Esterase Urine WBC (Auto) Urine RBC (Auto) Urine WBC Clumps (Auto) Ur Squamous Epith Cells Urine Bacteria Ur Random Creatinine U Random Total Protein Ur Random Sodium Influenza Typ A,B (EIA) Ur L.pneumophila Ag Blood Type Antibody Screen 09/04/17 09/04/17 09/04/17 20:40 21:15 22:27 WBC RBC Hgb Hct MCV MCH MCHC RDW Plt Count MPV Neut % (Auto) Lymph % (Auto) [place] % (Auto) Eos % (Auto) Baso % (Auto) Neut # (Auto) Lymph # (Auto) [place] # (Auto) Eos # (Auto) Baso # (Auto) Neutrophils % (Manual) Lymphocytes % (Manual) Monocytes % (Manual) Platelet Estimate Poikilocytosis (manual Anisocytosis (manual) Ovalocytes Retic Count PT 14.4 H INR 1.3 APTT 22 Sodium Potassium Chloride Carbon Dioxide Anion Gap BUN Creatinine Est GFR ( Amer) Est GFR (Non-Af Amer) POC Glucose (mg/dL) 174 H Random Glucose Hemoglobin A1c Calcium Phosphorus Magnesium Iron TIBC % Saturation Transferrin Ferritin Total Bilirubin AST ALT Alkaline Phosphatase Total Creatine Kinase CK-MB (Mass) Troponin I Total Protein Albumin Globulin Albumin/Globulin Ratio Triglycerides Cholesterol LDL Cholesterol Direct HDL Cholesterol Vitamin B12 Folate Procalcitonin Free T4 TSH 3rd Generation Urine Color Urine Clarity Urine pH Ur Specific [place] Urine Protein Urine Glucose (UA) Urine Ketones Urine Blood Urine Nitrate Urine Bilirubin Urine Urobilinogen Ur Leukocyte Esterase Urine WBC (Auto) Urine RBC (Auto) Urine WBC Clumps (Auto) Ur Squamous Epith Cells Urine Bacteria Ur Random Creatinine U Random Total Protein Ur Random Sodium Influenza Typ A,B (EIA) Negative for flu a/b Ur L.pneumophila Ag Negative Blood Type Antibody Screen 09/05/17 09/05/17 09/05/17 03:10 03:10 03:10 WBC 10.2 RBC 2.51 L Hgb 7.2 L Hct 22.2 L MCV 88.4 MCH 28.5 MCHC 32.3 L RDW 15.1 H Plt Count 325 MPV 7.8 Neut % (Auto) 75.5 H Lymph % (Auto) 13.6 L [place] % (Auto) 10.6 H Eos % (Auto) 0.2 Baso % (Auto) 0.1 Neut # (Auto) 7.7 H Lymph # (Auto) 1.4 [place] # (Auto) 1.1 H Eos # (Auto) 0.0 Baso # (Auto) 0.0 Neutrophils % (Manual) Lymphocytes % (Manual) Monocytes % (Manual) Platelet Estimate Poikilocytosis (manual Anisocytosis (manual) Ovalocytes Retic Count 1.3 PT INR APTT Sodium Potassium Chloride Carbon Dioxide Anion Gap BUN Creatinine Est GFR ( Amer) Est GFR (Non-Af Amer) POC Glucose (mg/dL) Random Glucose Hemoglobin A1c Calcium Phosphorus Magnesium Iron 16 L TIBC 235 L % Saturation 7 L Transferrin 147.38 L Ferritin Total Bilirubin AST ALT Alkaline Phosphatase Total Creatine Kinase CK-MB (Mass) Troponin I Total Protein Albumin Globulin Albumin/Globulin Ratio Triglycerides Cholesterol LDL Cholesterol Direct HDL Cholesterol Vitamin B12 Folate Procalcitonin Free T4 TSH 3rd Generation Urine Color Urine Clarity Urine pH Ur Specific [place] Urine Protein Urine Glucose (UA) Urine Ketones Urine Blood Urine Nitrate Urine Bilirubin Urine Urobilinogen Ur Leukocyte Esterase Urine WBC (Auto) Urine RBC (Auto) Urine WBC Clumps (Auto) Ur Squamous Epith Cells Urine Bacteria Ur Random Creatinine U Random Total Protein Ur Random Sodium Influenza Typ A,B (EIA) Ur L.pneumophila Ag Blood Type Antibody Screen 09/05/17 09/05/17 09/05/17 03:10 07:53 08:19 WBC RBC Hgb Hct MCV MCH MCHC RDW Plt Count MPV Neut % (Auto) Lymph % (Auto) [place] % (Auto) Eos % (Auto) Baso % (Auto) Neut # (Auto) Lymph # (Auto) [place] # (Auto) Eos # (Auto) Baso # (Auto) Neutrophils % (Manual) Lymphocytes % (Manual) Monocytes % (Manual) Platelet Estimate Poikilocytosis (manual Anisocytosis (manual) Ovalocytes Retic Count PT INR APTT Sodium 142 Potassium 4.6 Chloride 108 H Carbon Dioxide 17 L Anion Gap 21 H BUN 72 H Creatinine 4.5 H Est GFR ( Amer) 15 Est GFR (Non-Af Amer) 13 POC Glucose (mg/dL) 143 H Random Glucose 164 H Hemoglobin A1c Calcium 8.4 L Phosphorus 5.0 H Magnesium 1.8 Iron TIBC % Saturation Transferrin Ferritin 198.0 Total Bilirubin 0.4 AST 36 ALT 19 L Alkaline Phosphatase 84 Total Creatine Kinase 86 CK-MB (Mass) 5.66 H Troponin I 7.7400 H* Total Protein 7.2 Albumin 3.1 L Globulin 4.1 H Albumin/Globulin Ratio 0.8 L Triglycerides Cholesterol LDL Cholesterol Direct HDL Cholesterol Vitamin B12 302 Folate 16.9 Procalcitonin Free T4 TSH 3rd Generation Urine Color Yellow Urine Clarity Hazy Urine pH 6.0 Ur Specific [place] 1.009 Urine Protein 2+ H Urine Glucose (UA) 1+ H Urine Ketones Negative Urine Blood 2+ H Urine Nitrate Negative Urine Bilirubin Negative Urine Urobilinogen Normal Ur Leukocyte Esterase 3+ H Urine WBC (Auto) 280 H Urine RBC (Auto) 29 H Urine WBC Clumps (Auto) Many H Ur Squamous Epith Cells < 1 Urine Bacteria Few H Ur Random Creatinine U Random Total Protein Ur Random Sodium Influenza Typ A,B (EIA) Ur L.pneumophila Ag Blood Type Antibody Screen 09/05/17 09/05/17 09/05/17 08:39 11:04 11:37 WBC RBC Hgb Hct MCV MCH MCHC RDW Plt Count MPV Neut % (Auto) Lymph % (Auto) [place] % (Auto) Eos % (Auto) Baso % (Auto) Neut # (Auto) Lymph # (Auto) [place] # (Auto) Eos # (Auto) Baso # (Auto) Neutrophils % (Manual) Lymphocytes % (Manual) Monocytes % (Manual) Platelet Estimate Poikilocytosis (manual Anisocytosis (manual) Ovalocytes Retic Count PT INR APTT Sodium Potassium Chloride Carbon Dioxide Anion Gap BUN Creatinine Est GFR ( Amer) Est GFR (Non-Af Amer) POC Glucose (mg/dL) 277 H Random Glucose Hemoglobin A1c Calcium Phosphorus Magnesium Iron TIBC % Saturation Transferrin Ferritin Total Bilirubin AST ALT Alkaline Phosphatase Total Creatine Kinase 76 CK-MB (Mass) Troponin I Total Protein Albumin Globulin Albumin/Globulin Ratio Triglycerides Cholesterol LDL Cholesterol Direct HDL Cholesterol Vitamin B12 Folate Procalcitonin Free T4 TSH 3rd Generation Urine Color Urine Clarity Urine pH Ur Specific [place] Urine Protein Urine Glucose (UA) Urine Ketones Urine Blood Urine Nitrate Urine Bilirubin Urine Urobilinogen Ur Leukocyte Esterase Urine WBC (Auto) Urine RBC (Auto) Urine WBC Clumps (Auto) Ur Squamous Epith Cells Urine Bacteria Ur Random Creatinine 26.7 U Random Total Protein 119.0 H Ur Random Sodium 75 Influenza Typ A,B (EIA) Ur L.pneumophila Ag Blood Type Antibody Screen 09/05/17 16:26 WBC RBC Hgb Hct MCV MCH MCHC RDW Plt Count MPV Neut % (Auto) Lymph % (Auto) [place] % (Auto) Eos % (Auto) Baso % (Auto) Neut # (Auto) Lymph # (Auto) [place] # (Auto) Eos # (Auto) Baso # (Auto) Neutrophils % (Manual) Lymphocytes % (Manual) Monocytes % (Manual) Platelet Estimate Poikilocytosis (manual Anisocytosis (manual) Ovalocytes Retic Count PT INR APTT Sodium Potassium Chloride Carbon Dioxide Anion Gap BUN Creatinine Est GFR ( Amer) Est GFR (Non-Af Amer) POC Glucose (mg/dL) 124 H Random Glucose Hemoglobin A1c Calcium Phosphorus Magnesium Iron TIBC % Saturation Transferrin Ferritin Total Bilirubin AST ALT Alkaline Phosphatase Total Creatine Kinase CK-MB (Mass) Troponin I Total Protein Albumin Globulin Albumin/Globulin Ratio Triglycerides Cholesterol LDL Cholesterol Direct HDL Cholesterol Vitamin B12 Folate Procalcitonin Free T4 TSH 3rd Generation Urine Color Urine Clarity Urine pH Ur Specific [place] Urine Protein Urine Glucose (UA) Urine Ketones Urine Blood Urine Nitrate Urine Bilirubin Urine Urobilinogen Ur Leukocyte Esterase Urine WBC (Auto) Urine RBC (Auto) Urine WBC Clumps (Auto) Ur Squamous Epith Cells Urine Bacteria Ur Random Creatinine U Random Total Protein Ur Random Sodium Influenza Typ A,B (EIA) Ur L.pneumophila Ag Blood Type Antibody Screen
--- NOTE | 2017-09-05 17:34 | CP.PCM.HP ---
Past Patient History - Past Medical History & Family History Past Medical History?: Yes - Past Social History Smoking Status: Never Smoked - CARDIAC Hx Hypertension: Yes - PULMONARY Hx Respiratory Disorders: No - NEUROLOGICAL Hx Neurological Disorder: No - HEENT Hx HEENT Problems: No - RENAL Hx Chronic Kidney Disease: No - ENDOCRINE/METABOLIC Hx Endocrine Disorders: Yes Hx Diabetes Mellitus Type 2: Yes - HEMATOLOGICAL/ONCOLOGICAL Hx Blood Disorders: Yes Hx Anemia: Yes - INTEGUMENTARY Hx Dermatological Problems: No - MUSCULOSKELETAL/RHEUMATOLOGICAL Hx Falls: Yes - GASTROINTESTINAL Hx Gastrointestinal Disorders: No - GENITOURINARY/GYNECOLOGICAL Hx Genitourinary Disorders: Yes Hx Prostate Problems: Yes - PSYCHIATRIC Hx Substance Use: No - SURGICAL HISTORY Hx Surgeries: Yes Other/Comment: Prostate - ANESTHESIA Hx Anesthesia: No Hx Anesthesia Reactions: No Hx Malignant Hyperthermia: No Has any member of the family had a problem w/ anesthesia?: No Meds Allergies/Adverse Reactions: Allergies Allergy/AdvReac Type Severity Reaction Status Date / Time No Known Allergies Allergy Verified 09/04/17 12:12 Physical Exam - Constitutional Appears: Well - Head Exam Head Exam: ATRAUMATIC, NORMAL INSPECTION, NORMOCEPHALIC - Eye Exam Eye Exam: EOMI, Normal appearance, PERRL Pupil Exam: NORMAL ACCOMODATION, PERRL - ENT Exam ENT Exam: Mucous Membranes Moist, Normal Exam - Neck Exam Neck exam: Positive for: Normal Inspection - Respiratory Exam Respiratory Exam: Decreased Breath Sounds - Cardiovascular Exam Cardiovascular Exam: REGULAR RHYTHM, +S1, +S2 - GI/Abdominal Exam GI & Abdominal Exam: Diminished Bowel Sounds, Soft - Rectal Exam Rectal Exam: Deferred Results - Vital Signs Recent Vital Signs: Last Vital Signs Temp 98.1 F 09/05/17 16:30 Pulse 101 H 09/05/17 16:30 Resp 18 09/05/17 16:30 BP 126/73 09/05/17 16:30 Pulse Ox 99 09/05/17 12:30 - Labs Result Diagrams: 09/06/17 06:20 09/06/17 06:18 Labs: Laboratory Results - last 24 hr 09/04/17 09/04/17 09/04/17 15:15 20:30 20:30 WBC RBC Hgb Hct MCV MCH MCHC RDW Plt Count MPV Neut % (Auto) Lymph % (Auto) [place] % (Auto) Eos % (Auto) Baso % (Auto) Neut # (Auto) Lymph # (Auto) [place] # (Auto) Eos # (Auto) Baso # (Auto) Neutrophils % (Manual) Lymphocytes % (Manual) Monocytes % (Manual) Platelet Estimate Poikilocytosis (manual Anisocytosis (manual) Ovalocytes Retic Count PT INR APTT Sodium 140 Potassium 6.1 H Chloride 105 Carbon Dioxide 17 L Anion Gap 24 H BUN 81 H Creatinine 4.8 H Est GFR ( Amer) 14 Est GFR (Non-Af Amer) 12 POC Glucose (mg/dL) Random Glucose 114 H Hemoglobin A1c 6.9 H Calcium 9.0 Phosphorus 5.5 H Magnesium 1.9 Iron TIBC % Saturation Transferrin Ferritin Total Bilirubin 0.6 AST 47 ALT 19 L Alkaline Phosphatase 89 Total Creatine Kinase 131 CK-MB (Mass) 7.64 H Troponin I 9.5000 H* Total Protein 7.8 Albumin 3.5 Globulin 4.3 H Albumin/Globulin Ratio 0.8 L Triglycerides 69 Cholesterol 125 LDL Cholesterol Direct 60 HDL Cholesterol 34 Vitamin B12 Folate Procalcitonin Free T4 TSH 3rd Generation 0.89 Urine Color Urine Clarity Urine pH Ur Specific [place] Urine Protein Urine Glucose (UA) Urine Ketones Urine Blood Urine Nitrate Urine Bilirubin Urine Urobilinogen Ur Leukocyte Esterase Urine WBC (Auto) Urine RBC (Auto) Urine WBC Clumps (Auto) Ur Squamous Epith Cells Urine Bacteria Ur Random Creatinine U Random Total Protein Ur Random Sodium Influenza Typ A,B (EIA) Ur L.pneumophila Ag Blood Type O NEGATIVE Antibody Screen Negative 09/04/17 09/04/17 09/04/17 20:30 20:30 20:30 WBC 13.4 H RBC 2.46 L Hgb 7.2 L Hct 21.6 L MCV 88.0 MCH 29.2 MCHC 33.2 RDW 15.3 H Plt Count 365 MPV 8.1 Neut % (Auto) 80.0 H Lymph % (Auto) 9.8 L [place] % (Auto) 10.0 Eos % (Auto) 0.0 Baso % (Auto) 0.2 Neut # (Auto) 10.7 H Lymph # (Auto) 1.3 [place] # (Auto) 1.3 H Eos # (Auto) 0.0 Baso # (Auto) 0.0 Neutrophils % (Manual) 80 H Lymphocytes % (Manual) 7 L Monocytes % (Manual) 13 H Platelet Estimate Normal Poikilocytosis (manual Slight Anisocytosis (manual) Slight Ovalocytes Slight Retic Count PT INR APTT Sodium Potassium Chloride Carbon Dioxide Anion Gap BUN Creatinine Est GFR ( Amer) Est GFR (Non-Af Amer) POC Glucose (mg/dL) Random Glucose Hemoglobin A1c Calcium Phosphorus Magnesium Iron TIBC % Saturation Transferrin Ferritin Total Bilirubin AST ALT Alkaline Phosphatase Total Creatine Kinase CK-MB (Mass) Troponin I Total Protein Albumin Globulin Albumin/Globulin Ratio Triglycerides Cholesterol LDL Cholesterol Direct HDL Cholesterol Vitamin B12 Folate Procalcitonin 6.26 H Free T4 1.39 TSH 3rd Generation Urine Color Urine Clarity Urine pH Ur Specific [place] Urine Protein Urine Glucose (UA) Urine Ketones Urine Blood Urine Nitrate Urine Bilirubin Urine Urobilinogen Ur Leukocyte Esterase Urine WBC (Auto) Urine RBC (Auto) Urine WBC Clumps (Auto) Ur Squamous Epith Cells Urine Bacteria Ur Random Creatinine U Random Total Protein Ur Random Sodium Influenza Typ A,B (EIA) Ur L.pneumophila Ag Blood Type Antibody Screen 09/04/17 09/04/17 09/04/17 20:40 21:15 22:27 WBC RBC Hgb Hct MCV MCH MCHC RDW Plt Count MPV Neut % (Auto) Lymph % (Auto) [place] % (Auto) Eos % (Auto) Baso % (Auto) Neut # (Auto) Lymph # (Auto) [place] # (Auto) Eos # (Auto) Baso # (Auto) Neutrophils % (Manual) Lymphocytes % (Manual) Monocytes % (Manual) Platelet Estimate Poikilocytosis (manual Anisocytosis (manual) Ovalocytes Retic Count PT 14.4 H INR 1.3 APTT 22 Sodium Potassium Chloride Carbon Dioxide Anion Gap BUN Creatinine Est GFR ( Amer) Est GFR (Non-Af Amer) POC Glucose (mg/dL) 174 H Random Glucose Hemoglobin A1c Calcium Phosphorus Magnesium Iron TIBC % Saturation Transferrin Ferritin Total Bilirubin AST ALT Alkaline Phosphatase Total Creatine Kinase CK-MB (Mass) Troponin I Total Protein Albumin Globulin Albumin/Globulin Ratio Triglycerides Cholesterol LDL Cholesterol Direct HDL Cholesterol Vitamin B12 Folate Procalcitonin Free T4 TSH 3rd Generation Urine Color Urine Clarity Urine pH Ur Specific [place] Urine Protein Urine Glucose (UA) Urine Ketones Urine Blood Urine Nitrate Urine Bilirubin Urine Urobilinogen Ur Leukocyte Esterase Urine WBC (Auto) Urine RBC (Auto) Urine WBC Clumps (Auto) Ur Squamous Epith Cells Urine Bacteria Ur Random Creatinine U Random Total Protein Ur Random Sodium Influenza Typ A,B (EIA) Negative for flu a/b Ur L.pneumophila Ag Negative Blood Type Antibody Screen 09/05/17 09/05/17 09/05/17 03:10 03:10 03:10 WBC 10.2 RBC 2.51 L Hgb 7.2 L Hct 22.2 L MCV 88.4 MCH 28.5 MCHC 32.3 L RDW 15.1 H Plt Count 325 MPV 7.8 Neut % (Auto) 75.5 H Lymph % (Auto) 13.6 L [place] % (Auto) 10.6 H Eos % (Auto) 0.2 Baso % (Auto) 0.1 Neut # (Auto) 7.7 H Lymph # (Auto) 1.4 [place] # (Auto) 1.1 H Eos # (Auto) 0.0 Baso # (Auto) 0.0 Neutrophils % (Manual) Lymphocytes % (Manual) Monocytes % (Manual) Platelet Estimate Poikilocytosis (manual Anisocytosis (manual) Ovalocytes Retic Count 1.3 PT INR APTT Sodium Potassium Chloride Carbon Dioxide Anion Gap BUN Creatinine Est GFR ( Amer) Est GFR (Non-Af Amer) POC Glucose (mg/dL) Random Glucose Hemoglobin A1c Calcium Phosphorus Magnesium Iron 16 L TIBC 235 L % Saturation 7 L Transferrin 147.38 L Ferritin Total Bilirubin AST ALT Alkaline Phosphatase Total Creatine Kinase CK-MB (Mass) Troponin I Total Protein Albumin Globulin Albumin/Globulin Ratio Triglycerides Cholesterol LDL Cholesterol Direct HDL Cholesterol Vitamin B12 Folate Procalcitonin Free T4 TSH 3rd Generation Urine Color Urine Clarity Urine pH Ur Specific [place] Urine Protein Urine Glucose (UA) Urine Ketones Urine Blood Urine Nitrate Urine Bilirubin Urine Urobilinogen Ur Leukocyte Esterase Urine WBC (Auto) Urine RBC (Auto) Urine WBC Clumps (Auto) Ur Squamous Epith Cells Urine Bacteria Ur Random Creatinine U Random Total Protein Ur Random Sodium Influenza Typ A,B (EIA) Ur L.pneumophila Ag Blood Type Antibody Screen 09/05/17 09/05/17 09/05/17 03:10 07:53 08:19 WBC RBC Hgb Hct MCV MCH MCHC RDW Plt Count MPV Neut % (Auto) Lymph % (Auto) [place] % (Auto) Eos % (Auto) Baso % (Auto) Neut # (Auto) Lymph # (Auto) [place] # (Auto) Eos # (Auto) Baso # (Auto) Neutrophils % (Manual) Lymphocytes % (Manual) Monocytes % (Manual) Platelet Estimate Poikilocytosis (manual Anisocytosis (manual) Ovalocytes Retic Count PT INR APTT Sodium 142 Potassium 4.6 Chloride 108 H Carbon Dioxide 17 L Anion Gap 21 H BUN 72 H Creatinine 4.5 H Est GFR ( Amer) 15 Est GFR (Non-Af Amer) 13 POC Glucose (mg/dL) 143 H Random Glucose 164 H Hemoglobin A1c Calcium 8.4 L Phosphorus 5.0 H Magnesium 1.8 Iron TIBC % Saturation Transferrin Ferritin 198.0 Total Bilirubin 0.4 AST 36 ALT 19 L Alkaline Phosphatase 84 Total Creatine Kinase 86 CK-MB (Mass) 5.66 H Troponin I 7.7400 H* Total Protein 7.2 Albumin 3.1 L Globulin 4.1 H Albumin/Globulin Ratio 0.8 L Triglycerides Cholesterol LDL Cholesterol Direct HDL Cholesterol Vitamin B12 302 Folate 16.9 Procalcitonin Free T4 TSH 3rd Generation Urine Color Yellow Urine Clarity Hazy Urine pH 6.0 Ur Specific [place] 1.009 Urine Protein 2+ H Urine Glucose (UA) 1+ H Urine Ketones Negative Urine Blood 2+ H Urine Nitrate Negative Urine Bilirubin Negative Urine Urobilinogen Normal Ur Leukocyte Esterase 3+ H Urine WBC (Auto) 280 H Urine RBC (Auto) 29 H Urine WBC Clumps (Auto) Many H Ur Squamous Epith Cells < 1 Urine Bacteria Few H Ur Random Creatinine U Random Total Protein Ur Random Sodium Influenza Typ A,B (EIA) Ur L.pneumophila Ag Blood Type Antibody Screen 09/05/17 09/05/17 09/05/17 08:39 11:04 11:37 WBC RBC Hgb Hct MCV MCH MCHC RDW Plt Count MPV Neut % (Auto) Lymph % (Auto) [place] % (Auto) Eos % (Auto) Baso % (Auto) Neut # (Auto) Lymph # (Auto) [place] # (Auto) Eos # (Auto) Baso # (Auto) Neutrophils % (Manual) Lymphocytes % (Manual) Monocytes % (Manual) Platelet Estimate Poikilocytosis (manual Anisocytosis (manual) Ovalocytes Retic Count PT INR APTT Sodium Potassium Chloride Carbon Dioxide Anion Gap BUN Creatinine Est GFR ( Amer) Est GFR (Non-Af Amer) POC Glucose (mg/dL) 277 H Random Glucose Hemoglobin A1c Calcium Phosphorus Magnesium Iron TIBC % Saturation Transferrin Ferritin Total Bilirubin AST ALT Alkaline Phosphatase Total Creatine Kinase 76 CK-MB (Mass) Troponin I Total Protein Albumin Globulin Albumin/Globulin Ratio Triglycerides Cholesterol LDL Cholesterol Direct HDL Cholesterol Vitamin B12 Folate Procalcitonin Free T4 TSH 3rd Generation Urine Color Urine Clarity Urine pH Ur Specific [place] Urine Protein Urine Glucose (UA) Urine Ketones Urine Blood Urine Nitrate Urine Bilirubin Urine Urobilinogen Ur Leukocyte Esterase Urine WBC (Auto) Urine RBC (Auto) Urine WBC Clumps (Auto) Ur Squamous Epith Cells Urine Bacteria Ur Random Creatinine 26.7 U Random Total Protein 119.0 H Ur Random Sodium 75 Influenza Typ A,B (EIA) Ur L.pneumophila Ag Blood Type Antibody Screen 09/05/17 16:26 WBC RBC Hgb Hct MCV MCH MCHC RDW Plt Count MPV Neut % (Auto) Lymph % (Auto) [place] % (Auto) Eos % (Auto) Baso % (Auto) Neut # (Auto) Lymph # (Auto) [place] # (Auto) Eos # (Auto) Baso # (Auto) Neutrophils % (Manual) Lymphocytes % (Manual) Monocytes % (Manual) Platelet Estimate Poikilocytosis (manual Anisocytosis (manual) Ovalocytes Retic Count PT INR APTT Sodium Potassium Chloride Carbon Dioxide Anion Gap BUN Creatinine Est GFR ( Amer) Est GFR (Non-Af Amer) POC Glucose (mg/dL) 124 H Random Glucose Hemoglobin A1c Calcium Phosphorus Magnesium Iron TIBC % Saturation Transferrin Ferritin Total Bilirubin AST ALT Alkaline Phosphatase Total Creatine Kinase CK-MB (Mass) Troponin I Total Protein Albumin Globulin Albumin/Globulin Ratio Triglycerides Cholesterol LDL Cholesterol Direct HDL Cholesterol Vitamin B12 Folate Procalcitonin Free T4 TSH 3rd Generation Urine Color Urine Clarity Urine pH Ur Specific [place] Urine Protein Urine Glucose (UA) Urine Ketones Urine Blood Urine Nitrate Urine Bilirubin Urine Urobilinogen Ur Leukocyte Esterase Urine WBC (Auto) Urine RBC (Auto) Urine WBC Clumps (Auto) Ur Squamous Epith Cells Urine Bacteria Ur Random Creatinine U Random Total Protein Ur Random Sodium Influenza Typ A,B (EIA) Ur L.pneumophila Ag Blood Type Antibody Screen Assessment & Plan - Assessment and Plan (Free Text) Plan: case seen and d.w staff and resident, concurred with finding and management.. Follow-up with the imaging specialist Follow-up with Dr. renee Repeat potassium was 6.1 Follow-up with Dr. shanel Webb for anemia Follow-up with the urologist Status post ICU evaluation and patient was accepted in the ICU Continue aspirin Continue DuoNeb GI and DVT prophylaxis Rocephin continue Discussed with the can sealer Continue same
[2017-09-05 20:47] LABS: SQUAMOUS EPITHIAL < 1 /hpf (0-5); URINE BACTERIA RARE (<OCC); URINE BILIRUBIN NEGATIVE (NEGATIVE); URINE BLOOD 1+ (NEGATIVE); URINE CLARITY Hazy (Clear); URINE COLOR Straw (YELLOW); URINE GLUCOSE (UA) 2+ mg/dL (Normal); URINE LEUKOCYTE ESTERASE 3+ Leu/uL (Negative); URINE PROTEIN 2+ mg/dL (NEGATIVE); URINE UROBILINOGEN NORMAL mg/dL (0.2-1.0); WBC CLUMPS FEW /hpf
[2017-09-05] MEDS: (Lantus) Insulin Glargine, Recombinant SC SCH (21:00)
--- NOTE | 2017-09-05 21:07 | PN ---
DATE: SUBJECTIVE: The patient just underwent Nair catheter placement by Dr. Pham, the urologist. No hematuria. The patient has significant bladder neck obstruction according to Dr. Pham. The patient denies any chest pain or shortness of breath. No reported or hypotension. PHYSICAL EXAMINATION VITAL SIGNS: Blood pressure 126/73, heart rate 101, temperature 98.1, respirations 18. HEENT: [place] conjunctivae. NECK: No JVD. Bilateral carotid endarterectomies, carotid stenosis. CHEST: Mild basilar rhonchi. HEART: S1 and S2 regular and distant. ABDOMEN: Soft. EXTREMITIES: Trace leg edema. LABORATORY DATA: Hemoglobin and hematocrit 7.2 and 22.2. White count and platelet count are within normal limits. Today's SMA-7, sodium 142, potassium 4.6, chloride 108, CO2 17, glucose 164, BUN 72, creatinine 4.5. The latest troponin today 7.74. Bladder ultrasound: Bilateral severe hydronephrosis, chronic renal parenchymal disease. Head CT scan, no intracranial hemorrhage, nonspecific white matter changes. I did review the echocardiographic study which is consistent with ischemic cardiomyopathy with severe septal hypokinesis. ASSESSMENT: 1. Non-ST elevation myocardial infarction. 2. Obstructive uropathy. 3. Acute renal insufficiency. 4. Severe bilateral hydronephrosis. 5. Anemia. RECOMMENDATIONS: 1. Continue aspirin 81 mg once a day. 2. Continue IV Zithromax and IV Rocephin. 3. Continue Crestor 5 mg once a day. 4. Heparin 5000 units subcutaneously twice a day. 5. Start Coreg at 3.125 mg twice a day. The patient is not a suitable candidate for GAURI inhibitors or Aldactone therapy. The patient is not a suitable candidate for invasive cardiac workup at this time. Kaleb Newman MD
[2017-09-06] MEDS: Ipratropium 0.02% Inhal Soln (0.5 mg/2.5 ml) UD IH SCH ×4 (02:27→19:25)
--- NOTE | 2017-09-06 03:24 | CON ---
DATE: 09/05/2017 COMPREHENSIVE ICU UROLOGIC CONSULTATION LOCATION: Bed #2. TIME OF CONSULTATION: Roughly 4:40 p.m. BRIEF HISTORY: The patient is an 87-year-old [place] male who was admitted to the ICU with a non-ST wave elevation [place] and acute renal insufficiency where the nurses' attempt to insert a Nair catheter were unsuccessful including a Coude catheter. Opinion was requested by Dr. Alcala regarding this ICU patient and assistance in inserting a Nair catheter at this time. The patient had a previous hospitalization in October of 2016, and a CT of the abdomen and pelvis on 10/09/2016, showed a colonic mass and the patient underwent a complete colonoscopy, which was negative for malignancy. However, the CAT scan also showed sclerotic region involving the T11 vertebral body and L3 vertebral body giving concern for the possibility of prostate cancer and a nuclear medicine bone scan was recommended. The patient had a total PSA at that time of 216, which was done on 10/10/2016. The patient says he voids urine every few hours and the nursing staff says the patient is incontinent of urine. The patient thought he had a prostate biopsy done previously, but his family does not remember this. He was advised to see a urologist in October of 2016, but it seems like the patient may not have made any visit to a urologist at that time. A bladder scan showed a 400 cc residual urine. A # 16 Fr. Coude catheter was inserted at the bedside. PAST MEDICAL HISTORY: Includes diabetes mellitus, hypertension, hyperlipidemia, anemia, and history of urethral stricture disease. PHYSICAL EXAMINATION: GENERAL: The patient is well-developed, well-nourished, seems to be alert white male. HEENT: Exam is grossly within normal limits. NECK: Supple. Thyroid not palpable. ABDOMEN: Soft, not distended or tender at this time. However, the patient did have a bladder scan, which showed 400 mL of urine in his bladder. GENITALIA: He is noncircumcised with a normal glandular meatus without any rashes or lesions visualized. Testes are down bilaterally. Nontender without masses. RECTAL: Rectal examination revealed a rock-hard, fixed, average-sized prostate, nontender. LABORATORY DATA: Urine culture and sensitivity showed was positive gram-negative rods and the patient is currently on Rocephin 2 g IV every 24 hours. His laboratory evaluation on 09/05/2017, showed a CBC with a WBC count of 10.2, hemoglobin of 7.2, and hematocrit of 22.2, showing a severe anemia. Platelet count was 325,000. His coag profile showed a PT of 14.4, INR of 1.3, and a PTT of 22. His chem profile showed a sodium of 142, potassium 4.6, chloride 108, CO2 17. BUN and creatinine of 72 and 4.5 respectively with a GFR of 13, indicating chronic renal disease stage and acute renal failure. A random glucose was 277 and a prior random glucose was 164. His calcium was 8.4, phosphorous 5.0, magnesium 1.8. His alk phosphatase was 84. His CK-MB originally was 7.64, and followup was 5.66, and his troponin level was originally 9.5000 and followup was 7.7400. His urinalysis on 09/05/2017, showed the color was yellow, clarity was hazy, pH was 6.0, specific gravity 1.009, protein was 2+, glucose was 1+. Ketones were negative. Blood was 2+. This is most likely post Nair catheterizations. Nitrite was negative. Bilirubin was negative and urobilinogen was normal. Leukocyte esterase was 3+, 280 wbc's, 29 rbc's with less than 1 squamous epithelial cells and few bacteria. DIAGNOSTIC IMPRESSION: For this patient is most likely, 1. Urethral stricture disease. 2. Possible, most likely metastatic prostate cancer. 3. Urosepsis. 4. Possible urinary retention. PLAN: For this patient is to keep the patient on IV antibiotics and obtain a bone scan and most likely with a positive bone scan for metastatic disease with markedly elevated PSA of 216, this patient most likely does have metastatic prostate cancer. Biopsy of the prostate cannot be done at this time secondary to his admitting pathology and urosepsis and most likely does not require at this time. If the patient does have metastatic prostate cancer, he could be a candidate for androgen deprivation therapy, which can include Lupron 4 months Depot and casodex 50 mg po daily for complete androgen blocade(CAB). Kosta Pham MD [facility] # [id number] MTDChris
[2017-09-06 06:44] LABS: BASO # 0.1 K/uL (0.0-0.2); BASO % 0.7 % (0.0-2.0); EOS # 0.2 K/uL (0.0-0.7); EOS % 1.8 % (0.0-4.0); HEMOGLOBIN 8.6 g/dL (12.0-18.0); LYMPH # 1.4 K/uL (1.0-4.3); LYMPH % 13.5 % (20.0-40.0); MEAN CELL VOLUME 86.1 fL (80.0-94.0); MEAN CORPUSCULAR HEMOGLOBIN 30.7 pg (27.0-31.0); MEAN CORPUSCULAR HGB CONC 35.7 g/dL (33.0-37.0); MEAN PLATELET VOLUME 8.1 fL (7.2-11.7); MONO % 9.9 % (0.0-10.0); NEUT # 7.6 K/uL (1.8-7.0); NEUT % 74.1 % (50.0-75.0); NRBC % 0.1 % (0.0-2.0); RBC 2.78 Mil/uL (4.40-5.90); RED CELL DISTRIBUTION WIDTH 14.6 % (11.5-14.5); WHITE BLOOD COUNT 10.3 K/uL (4.8-10.8)
[2017-09-06 06:45] LABS: ALB/GLOB RATIO 0.8 (1.0-2.1); ALBUMIN 2.8 g/dL (3.5-5.0); CALCIUM 8.1 mg/dl (8.6-10.4)
--- NOTE | 2017-09-06 09:54 | CP.PCM.PN ---
Subjective - Date & Time of Evaluation Date of Evaluation: 09/06/17 Time of Evaluation: 09:53 - Subjective Subjective: Assessment: critical Acute Kidney Injury (N17.9) likely due to Obstructive uropathy as evident by bilateral hydronephrosis Retroperitoneal adenopathy, Possible metastatic prostate malignancy Severe anemia, UTI Acute AL Hyperkalemia and metabolic acidosis Pneumonia CHF hx of DM, HTN Plan No acute need for renal replacement therapy at this time. Renal fxn is improving w/ garcia on iron on bicarb on flomax f/u and heme defer WAYNE to onc S: seen and examined, feels better today Physical Examination: General Appearance: Comfortable, in no acute respiratory distress, co-operative . Vitals reviewed and noted as below Head; Atraumatic, normocephalic ENT: no ulcers no thrush. Tongue is midline. Oropharynx: no rash or ulcers. Dry tongue, has hoarseness of voice EYES: Pupils are equal, round and reactive to light accommodation. Eye muscles and extraocular movement intact. Sclera is anicteric. Neck; supple no lymphadenopathy, no thyromegaly or bruit Lungs: Normal respiratory rate/effort. Breath sounds bilateral Decreased at bases with few crackles Heart: Normal rate. s1s2 normal. No rub or gallop. Extremities: no edema. No varicose veins Neurological: Patient is alert, awake and No focal deficit. Strength bilateral appropriate and equal Skin: Warm and dry. Normal turgor. No rash. Palpitation: Normal elasticity for age Abdomen: Abdomen is soft. Bowel sounds +. There is no abdominal tenderness, no guarding/rigidity no organomegaly Psych: Limited insight insight and Flat affect/mood MSK: no joint tenderness or swelling. Digits and nails normal, no deformity : + garcia Labs/imaging reviewed. Past medical history, past surgical history, family history, social history, allergy reviewed and noted as below Family hx: no hx of CKD. Rest non-contributory Objective - Vital Signs/Intake and Output Vital Signs (last 24 hours): Temp Pulse Resp BP Pulse Ox 97.5 F L 86 14 128/65 96 09/06/17 04:00 09/06/17 07:00 09/06/17 07:00 09/06/17 06:48 09/06/17 07:00 Intake and Output: 03/31/18 03/31/18 06:59 18:59 Intake Total 600 Output Total 2175 Balance -1575 - Medications Medications: Current Medications Aspirin (Aspirin Chewable) 81 mg PO DAILY [facility] Last Admin: 09/05/17 09:10 Dose: 81 mg Carvedilol (Coreg) 3.125 mg PO BID [facility] Last Admin: 09/05/17 18:50 Dose: 3.125 mg Cyanocobalamin (Vitamin B12 1000 Mcg/Ml Inj) 1,000 mcg IM MWF [facility] Last Admin: 09/05/17 09:09 Dose: 1,000 mcg Ferrous Gluconate (Fergon) 324 mg PO TID [facility] Last Admin: 09/05/17 14:14 Dose: 324 mg Guaifenesin (Mucinex La) 600 mg PO BID [facility] Last Admin: 09/05/17 18:50 Dose: 600 mg Heparin Sodium (Porcine) (Heparin) 5,000 units SC Q12 [facility] Last Admin: 09/05/17 20:59 Dose: 5,000 units Azithromycin 500 mg/ Sodium (Chloride) 250 mls @ 250 mls/hr IVPB DAILY [facility] PRN Reason: Protocol Last Admin: 09/05/17 09:07 Dose: 250 mls/hr Ceftriaxone Sodium 2 gm/ (Sodium Chloride) 100 mls @ 100 mls/hr IVPB DAILY [facility] PRN Reason: Protocol Last Admin: 09/05/17 16:00 Dose: 100 mls/hr Insulin Aspart (Novolog) 0 unit SC ACHS [facility] PRN Reason: Protocol Last Admin: 09/05/17 21:15 Dose: Not Given Insulin Glargine (Lantus) 10 unit SC HS [facility] Last Admin: 09/05/17 21:00 Dose: 10 u Ipratropium Tiline (Atrovent) 0.5 mg IH RQ6 [facility] Last Admin: 09/06/17 07:45 Dose: 0.5 mg Rosuvastatin Calcium (Crestor) 5 mg PO HS [facility] Last Admin: 09/05/17 20:59 Dose: 5 mg Saccharomyces Boulardii (Florastor) 250 mg PO BID [facility] Last Admin: 09/05/17 18:50 Dose: 250 mg Sodium Bicarbonate (Sodium Bicarbonate Tab) 650 mg PO BID [facility] Last Admin: 09/05/17 18:50 Dose: 650 mg Tamsulosin HCl (Flomax) 0.4 mg PO DAILY [facility] Last Admin: 09/05/17 14:12 Dose: 0.4 mg Vitamin B Complex/Vit C/Folic Acid (Nephro-Fe) 1 tab PO 0800 MOISES - Labs Labs: 09/06/17 06:20 09/06/17 06:18 PT 14.4 SECONDS (9.7-12.2) H 09/04/17 22:27 INR 1.3 09/04/17 22:27 APTT 22 SECONDS (21-34) 09/04/17 22:27
[2017-09-06] MEDS: (Novolog) Insulin Aspart, Recombinant 100 u/ml 10 ml vial SC SCH ×4 (10:17→22:06)
[2017-09-06] MEDS: Azithromycin 500 MG in Sodium Chloride 0.9% 250 ML IVPB SCH (11:30)
[2017-09-06] MEDS: guaiFENesin 600 mg ER Tab PO SCH ×2 (11:33→17:45)
[2017-09-06] MEDS: Multivitamin Vitamin B Complex (Nephro-Vite) Tab PO SCH (11:33)
[2017-09-06] MEDS: Saccharomyces Boulardi 250 mg Cap PO SCH ×2 (11:34→17:44)
--- NOTE | 2017-09-06 13:03 | CP.PCM.PN ---
Subjective - Date & Time of Evaluation Date of Evaluation: 09/06/17 Time of Evaluation: 12:00 - Subjective Subjective: clinically same Objective - Vital Signs/Intake and Output Vital Signs (last 24 hours): Temp Pulse Resp BP Pulse Ox 97.5 F L 86 14 128/65 96 09/06/17 04:00 09/06/17 07:00 09/06/17 07:00 09/06/17 06:48 09/06/17 07:00 Intake and Output: 09/06/17 09/06/17 06:59 18:59 Intake Total 600 Output Total 2175 Balance -1575 - Medications Medications: Current Medications Aspirin (Aspirin Chewable) 81 mg PO DAILY [facility] Last Admin: 09/06/17 11:33 Dose: 81 mg Carvedilol (Coreg) 3.125 mg PO BID [facility] Last Admin: 09/06/17 11:34 Dose: 3.125 mg Cyanocobalamin (Vitamin B12 1000 Mcg/Ml Inj) 1,000 mcg IM MWF [facility] Last Admin: 09/05/17 09:09 Dose: 1,000 mcg Ferrous Gluconate (Fergon) 324 mg PO TID [facility] Last Admin: 09/05/17 14:14 Dose: 324 mg Guaifenesin (Mucinex La) 600 mg PO BID [facility] Last Admin: 09/06/17 11:33 Dose: 600 mg Heparin Sodium (Porcine) (Heparin) 5,000 units SC Q12 [facility] Last Admin: 09/06/17 11:33 Dose: 5,000 units Azithromycin 500 mg/ Sodium (Chloride) 250 mls @ 250 mls/hr IVPB DAILY [facility] PRN Reason: Protocol Last Admin: 09/06/17 11:30 Dose: 250 mls/hr Ceftriaxone Sodium 2 gm/ (Sodium Chloride) 100 mls @ 100 mls/hr IVPB DAILY [facility] PRN Reason: Protocol Last Admin: 09/06/17 11:30 Dose: 100 mls/hr Insulin Aspart (Novolog) 0 unit SC ACHS [facility] PRN Reason: Protocol Last Admin: 09/06/17 11:34 Dose: Not Given Insulin Glargine (Lantus) 10 unit SC HS [facility] Last Admin: 09/05/17 21:00 Dose: 10 u Ipratropium [place] (Atrovent) 0.5 mg IH RQ6 [facility] Last Admin: 09/06/17 07:45 Dose: 0.5 mg Rosuvastatin Calcium (Crestor) 5 mg PO HS [facility] Last Admin: 09/05/17 20:59 Dose: 5 mg Saccharomyces Boulardii (Florastor) 250 mg PO BID [facility] Last Admin: 09/06/17 11:34 Dose: 250 mg Sodium Bicarbonate (Sodium Bicarbonate Tab) 650 mg PO BID [facility] Last Admin: 09/06/17 11:32 Dose: 650 mg Tamsulosin HCl (Flomax) 0.4 mg PO DAILY [facility] Last Admin: 09/06/17 11:33 Dose: 0.4 mg Vitamin B Complex/Vit C/Folic Acid (Nephro-Fe) 1 tab PO 0800 [facility] Last Admin: 09/06/17 11:33 Dose: 1 tab - Labs Labs: 09/06/17 06:20 09/06/17 06:18 PT 14.4 SECONDS (9.7-12.2) H 09/04/17 22:27 INR 1.3 09/04/17 22:27 APTT 22 SECONDS (21-34) 09/04/17 22:27 - Constitutional Appears: Well - Head Exam Head Exam: ATRAUMATIC, NORMAL INSPECTION, NORMOCEPHALIC - Eye Exam Eye Exam: EOMI, Normal appearance, PERRL Pupil Exam: NORMAL ACCOMODATION, PERRL - ENT Exam ENT Exam: Mucous Membranes Moist, Normal Exam - Neck Exam Neck Exam: Full ROM, Normal Inspection. absent: Lymphadenopathy - Respiratory Exam Respiratory Exam: Decreased Breath Sounds - Cardiovascular Exam Cardiovascular Exam: REGULAR RHYTHM, +S1, +S2 - GI/Abdominal Exam GI & Abdominal Exam: Soft, Diminished Bowel Sounds - Rectal Exam Rectal Exam: Deferred Assessment and Plan - Assessment and Plan (Free Text) Plan: pulm cardio med as ordered may need alaina misael iv cefepime
--- NOTE | 2017-09-06 14:51 | CARD ---
APPROVED REPORT EXAM: Two-dimensional and M-mode echocardiogram with Doppler and color Doppler. Other Information Quality : GoodRhythm : INDICATION Syncope RISK FACTORS Diabetes 2D DIMENSIONS IVSd1.2 (0.7-1.1cm)Aortic Root (2D)3.4 (2.0-3.7cm) LVDd4.7 (3.9-5.9cm)LVOT Diameter1.9 (1.8-2.4cm) PWd1.2 (0.7-1.1cm)LVDs3.7 (2.5-4.0cm) FS (%) 20.7 %LVEF (%)42.2 (>50%) M-Mode DIMENSIONS Left Atrium (MM)4.74 (2.5-4.0cm)Aortic Root3.67 (2.2-3.7cm) Aortic Cusp Exc.1.73 (1.5-2.0cm) Mitral Valve MV E Csralcsm20.1cm/sMV A Ccczlmyx438.3cm/sMV KXY89yc E/A ratio0.3MVA (PHT)3.35cm2 TDI E/Lateral E'0.0E/Medial E'0.0 Tricuspid Valve TR Peak Kvlvogyx465sc/sTR Peak Gr.[id number] LEFT VENTRICLE The left ventricle is normal size. There is borderline to mild concentric left ventricular hypertrophy. LV SYSTOLIC FUNCTION IS DEPRESSED, LV EF 40% MID GRACIA-SEPTAL APPEARS DYSKINETIC . APEX IS HYPOKINETIC AND BASE CONTRACTS NORMAL , CONSIDER [place] CARDIOMYOPATHY CONSIDER REPEAT WITH CONTRAST FOR APICAL CLOT Transmitral Doppler flow pattern is Grade I-abnormal relaxation pattern. LV FILLING PRESSURE ARE NORMAL No left ventricle thrombus noted on this study. There is no ventricular septal defect visualized. There is no left ventricular aneurysm. There is no mass noted in the left ventricle. RIGHT VENTRICLE The right ventricle is normal size. There is normal right ventricular wall thickness. The right ventricular systolic function is normal. ATRIA The left atrium is mildly dilated. The right atrium size is normal. The interatrial septum is intact with no evidence for an atrial septal defect. AORTIC VALVE The aortic valve is normal in structure and function. No aortic regurgitation is present. There is no aortic valvular stenosis. There is no aortic valvular vegetation. MITRAL VALVE ABNORMAL MASS ON ANT. MITRAL LEAFLET ON VENTRICULAR SIDE , CAN NOT DIFFENTIATE SEEN IN ONLY ONE VIEW There is no evidence of mitral valve prolapse. There is no mitral valve stenosis. Mitral regurgitation is mild. TRICUSPID VALVE The tricuspid valve is normal in structure and function. There is no tricuspid valve regurgitation noted. There is no tricuspid valve prolapse or vegetation. There is no tricuspid valve stenosis. PULMONIC VALVE The pulmonary valve is normal in structure and function. There is no pulmonic valvular regurgitation. There is no pulmonic valvular stenosis. GREAT VESSELS The aortic root is normal in size. The ascending aorta is normal in size. The pulmonary artery is normal. The IVC is normal in size and collapses >50% with inspiration. PERICARDIAL EFFUSION The pericardium appears normal. There is no pleural effusion. <Conclusion> LV SYSTOLIC FUNCTION IS DEPRESSED, LV EF 40% MID GRACIA-SEPTAL APPEARS DYSKINETIC . APEX IS HYPOKINETIC AND BASE CONTRACTS NORMAL , CONSIDER [place] CARDIOMYOPATHY CONSIDER REPEAT WITH CONTRAST FOR APICAL CLOT Transmitral Doppler flow pattern is Grade I-abnormal relaxation pattern. LV FILLING PRESSURE ARE NORMAL ABNORMAL MASS ON ANT. MITRAL LEAFLET ON VENTRICULAR SIDE , CAN NOT DIFFENTIATE SEEN IN ONLY ONE VIEW
--- NOTE | 2017-09-06 15:10 | CP.PCM.PN ---
Subjective - Date & Time of Evaluation Date of Evaluation: 09/06/17 Time of Evaluation: 08:00 - Subjective Subjective: awake alert oob to chair denies fever IV antibiotics reordered Objective - Vital Signs/Intake and Output Vital Signs (last 24 hours): Temp Pulse Resp BP Pulse Ox 97.5 F L 86 14 128/65 96 09/06/17 04:00 09/06/17 07:00 09/06/17 07:00 09/06/17 06:48 09/06/17 07:00 Intake and Output: 09/06/17 09/06/17 06:59 18:59 Intake Total 600 Output Total 2175 Balance -1575 - Medications Medications: Current Medications Aspirin (Aspirin Chewable) 81 mg PO DAILY [facility] Last Admin: 09/06/17 11:33 Dose: 81 mg Carvedilol (Coreg) 3.125 mg PO BID [facility] Last Admin: 09/06/17 11:34 Dose: 3.125 mg Cyanocobalamin (Vitamin B12 1000 Mcg/Ml Inj) 1,000 mcg IM MWF [facility] Last Admin: 09/05/17 09:09 Dose: 1,000 mcg Ferrous Gluconate (Fergon) 324 mg PO TID [facility] Last Admin: 09/05/17 14:14 Dose: 324 mg Guaifenesin (Mucinex La) 600 mg PO BID [facility] Last Admin: 09/06/17 11:33 Dose: 600 mg Heparin Sodium (Porcine) (Heparin) 5,000 units SC Q12 [facility] Last Admin: 09/06/17 11:33 Dose: 5,000 units Azithromycin 500 mg/ Sodium (Chloride) 250 mls @ 250 mls/hr IVPB DAILY [facility] PRN Reason: Protocol Last Admin: 09/06/17 11:30 Dose: 250 mls/hr Ceftriaxone Sodium 2 gm/ (Sodium Chloride) 100 mls @ 100 mls/hr IVPB DAILY [facility] PRN Reason: Protocol Last Admin: 09/06/17 11:30 Dose: 100 mls/hr Insulin Aspart (Novolog) 0 unit SC ACHS [facility] PRN Reason: Protocol Last Admin: 09/06/17 11:34 Dose: Not Given Insulin Glargine (Lantus) 10 unit SC HS [facility] Last Admin: 09/05/17 21:00 Dose: 10 u Ipratropium [place] (Atrovent) 0.5 mg IH RQ6 [facility] Last Admin: 09/06/17 13:49 Dose: 0.5 mg Rosuvastatin Calcium (Crestor) 5 mg PO HS [facility] Last Admin: 09/05/17 20:59 Dose: 5 mg Saccharomyces Boulardii (Florastor) 250 mg PO BID [facility] Last Admin: 09/06/17 11:34 Dose: 250 mg Sodium Bicarbonate (Sodium Bicarbonate Tab) 650 mg PO BID [facility] Last Admin: 09/06/17 11:32 Dose: 650 mg Tamsulosin HCl (Flomax) 0.4 mg PO DAILY [facility] Last Admin: 09/06/17 11:33 Dose: 0.4 mg Vitamin B Complex/Vit C/Folic Acid (Nephro-Fe) 1 tab PO 0800 [facility] Last Admin: 09/06/17 11:33 Dose: 1 tab - Labs Labs: 09/06/17 06:20 09/06/17 06:18 PT 14.4 SECONDS (9.7-12.2) H 09/04/17 22:27 INR 1.3 09/04/17 22:27 APTT 22 SECONDS (21-34) 09/04/17 22:27 - Constitutional Appears: Non-toxic, Chronically Ill - Head Exam Head Exam: NORMOCEPHALIC - Eye Exam Eye Exam: PERRL. absent: Scleral icterus - ENT Exam ENT Exam: Mucous Membranes Dry, Normal External Ear Exam - Neck Exam Neck Exam: absent: Lymphadenopathy - Respiratory Exam Respiratory Exam: Decreased Breath Sounds - Cardiovascular Exam Cardiovascular Exam: REGULAR RHYTHM - GI/Abdominal Exam GI & Abdominal Exam: Distended, Soft. absent: Tenderness - Rectal Exam Rectal Exam: Deferred - Exam Exam: NORMAL INSPECTION - Extremities Exam Extremities Exam: absent: Pedal Edema - Back Exam Back Exam: absent: CVA tenderness (L), CVA tenderness (R) - Neurological Exam Neurological Exam: Alert, Awake, Oriented x3 Neuro motor strength exam: Left Upper Extremity: 3, Right Upper Extremity: 3, Left Lower Extremity: 3, Right Lower Extremity: 3 - Psychiatric Exam Psychiatric exam: Depressed - Skin Skin Exam: Dry Assessment and Plan (1) NSTEMI (non-ST elevated myocardial infarction) Status: Acute (2) Obstructive uropathy Status: Acute (3) Diabetes mellitus Status: Acute (4) UTI (urinary tract infection) Status: Acute (5) SHANNAN (acute kidney injury) Status: Acute - Assessment and Plan (Free Text) Assessment: Acute Kidney Injury (N17.9) likely due to Obstructive uropathy as evident by bilateral hydronephrosis Retroperitoneal adenopathy, 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
[2017-09-06] MEDS ORDERED: Cefepime IV 1 gm in Dextrose 1 GM/50 ML BAG IVPB SCH (15:15)
--- NOTE | 2017-09-06 17:37 | CP.CCUPN ---
CCU Subjective - Physician Review Events Since Last Encounter (Free Text): 09/06/17 17:36 Patient is a 87 year old male with past medical history of HTN. 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 Per ED documentation - As per EMS, patient was on the floor for 2 days and did not have anything to eat/ drink during this time. As per EMS, patient is complaining of abdominal pain. Patient denies any medical complaints in the ED. Additional information limited because patient is unable to provide a clear history. Patient was found to have NSTEMI with troponin of 13.1. Potassium was 7.0. Patient was given Glucagon x 1 , Novolin R 10 units, Kaexylate 30gm x 1, Calcium gluconate x 1 dose. Admitted to the ICU for closer monitoring. At this of interview, patient is lethargic but currently offers no complaints. He is coughing. Denies headache, dizziness, cp, palpitations, sob, abdominal pain, urinary symptoms. PMD: Dr Rayo Allergies: NKDA Medications: See MAR Medical Hx: HTN, diabetes, anemia, prostate mass? Surgical Hx: Cystoscopy OIU/Balloon dilitation insertion of garcia, hernia repair , prostatectomy Social Hx: Former smoker quit 30 years ago; denies EtOH and illicit drug use. Lives at home alone, has two daughters Temp Pulse Resp BP Pulse Ox 98.2 F 78 17 106/53 L 98 09/06/17 16:00 09/06/17 16:00 09/06/17 16:00 09/06/17 15:48 09/06/17 16:00 Micro Results 09/04/17 Unknown Urine Urine Culture - Final Klebsiella Ozaenae 09/04/17 20:30 Blood Blood Culture - Preliminary NO GROWTH AFTER 24 HOURS 09/04/17 20:00 Blood Blood Culture - Preliminary NO GROWTH AFTER 24 HOURS 09/04/17 Unknown Nose MRSA Culture (Admit) - Final MRSA NOT DETECTED Most Recent Lab Values WBC 10.3 K/uL (4.8-10.8) 09/06/17 06:20 RBC 2.78 Mil/uL (4.40-5.90) L 09/06/17 06:20 Hgb 8.6 g/dL (12.0-18.0) L 09/06/17 06:20 Hct 24.0 % (35.0-51.0) L 09/06/17 06:20 MCV 86.1 fL (80.0-94.0) D 09/06/17 06:20 MCH 30.7 pg (27.0-31.0) 09/06/17 06:20 MCHC 35.7 g/dL (33.0-37.0) 09/06/17 06:20 RDW 14.6 % (11.5-14.5) H 09/06/17 06:20 Plt Count 298 K/uL (130-400) 09/06/17 06:20 MPV 8.1 fL (7.2-11.7) 09/06/17 06:20 Neut % (Auto) 74.1 % (50.0-75.0) 09/06/17 06:20 Lymph % (Auto) 13.5 % (20.0-40.0) L 09/06/17 06:20 [place] % (Auto) 9.9 % (0.0-10.0) 09/06/17 06:20 Eos % (Auto) 1.8 % (0.0-4.0) 09/06/17 06:20 Baso % (Auto) 0.7 % (0.0-2.0) 09/06/17 06:20 Neut # (Auto) 7.6 K/uL (1.8-7.0) H 09/06/17 06:20 Lymph # (Auto) 1.4 K/uL (1.0-4.3) 09/06/17 06:20 [place] # (Auto) 1.0 K/uL (0.0-0.8) H 09/06/17 06:20 Eos # (Auto) 0.2 K/uL (0.0-0.7) 09/06/17 06:20 Baso # (Auto) 0.1 K/uL (0.0-0.2) 09/06/17 06:20 Neutrophils % (Manual) 80 % (50-75) H 09/04/17 20:30 Band Neutrophils % 1 % (0-2) 09/04/17 13:44 Lymphocytes % (Manual) 7 % (20-40) L 09/04/17 20:30 Monocytes % (Manual) 13 % (0-10) H 09/04/17 20:30 Platelet Estimate Normal (NORMAL) 09/04/17 20:30 Hypochromasia (manual) Slight 09/04/17 13:44 Poikilocytosis (manual Slight 09/04/17 20:30 Anisocytosis (manual) Slight 09/04/17 20:30 Ovalocytes Slight 09/04/17 20:30 Retic Count 1.3 % (0.5-1.5) 09/05/17 03:10 PT 14.4 SECONDS (9.7-12.2) H 09/04/17 22:27 INR 1.3 09/04/17 22:27 APTT 22 SECONDS (21-34) 09/04/17 22:27 Sodium 142 mmol/L (132-148) 09/06/17 06:18 Potassium 3.5 mmol/L (3.6-5.2) L 09/06/17 06:18 Chloride 110 mmol/L (98-107) H 09/06/17 06:18 Carbon Dioxide 19 mmol/L (22-30) L 09/06/17 06:18 Anion Gap 17 (10-20) 09/06/17 06:18 BUN 67 mg/dL (9-20) H 09/06/17 06:18 Creatinine 3.7 mg/dL (0.8-1.5) H 09/06/17 06:18 Est GFR ( Amer) 19 09/06/17 06:18 Est GFR (Non-Af Amer) 16 09/06/17 06:18 POC Glucose (mg/dL) 370 mg/dL (65-110) H 09/06/17 16:25 Random Glucose 73 mg/dL (75-110) L 09/06/17 06:18 Hemoglobin A1c 6.9 % (4.2-6.5) H 09/04/17 20:30 Calcium 8.1 mg/dl (8.6-10.4) L 09/06/17 06:18 Phosphorus 4.2 mg/dL (2.5-4.5) 09/06/17 06:18 Magnesium 1.7 mg/dL (1.6-2.3) 09/06/17 06:18 Iron 16 ug/dL (49-181) L 09/05/17 03:10 TIBC 235 ug/dL (250-450) L 09/05/17 03:10 % Saturation 7 (20-55) L 09/05/17 03:10 Transferrin 147.38 mg/dL (206-381) L 09/05/17 03:10 Ferritin 198.0 ng/mL 09/05/17 03:10 Total Bilirubin 0.4 mg/dL (0.2-1.3) 09/06/17 06:18 AST 29 U/L (17-59) 09/06/17 06:18 ALT 23 U/L (21-72) 09/06/17 06:18 Alkaline Phosphatase 80 U/L (38-126) 09/06/17 06:18 Total Creatine Kinase 76 U/L (55-170) 09/05/17 11:04 CK-MB (Mass) 5.66 ng/mL (0.0-3.38) H 09/05/17 03:10 Troponin I 7.7400 ng/mL (0.00-0.120) H* 09/05/17 03:10 NT-Pro-B Natriuret Pep 73643 pg/mL (0-900) H 09/04/17 13:44 Total Protein 6.5 g/dL (6.3-8.3) 09/06/17 06:18 Albumin 2.8 g/dL (3.5-5.0) L 09/06/17 06:18 Globulin 3.7 gm/dL (2.2-3.9) 09/06/17 06:18 Albumin/Globulin Ratio 0.8 (1.0-2.1) L 09/06/17 06:18 Triglycerides 69 mg/dL (0-149) 09/04/17 20:30 Cholesterol 125 mg/dL (0-199) 09/04/17 20:30 LDL Cholesterol Direct 60 mg/dL (0-129) 09/04/17 20:30 HDL Cholesterol 34 mg/dL (30-70) 09/04/17 20:30 Lipase 31 U/L (23-300) 09/04/17 13:44 Vitamin B12 302 pg/mL (239-931) 09/05/17 03:10 Folate 16.9 ng/mL 09/05/17 03:10 Procalcitonin 6.26 NG/ML (0.19-0.49) H 09/04/17 20:30 Free T4 1.39 ng/dL (0.78-2.19) 09/04/17 20:30 TSH 3rd Generation 0.89 mIU/L (0.46-4.68) 09/04/17 20:30 Urine Color Straw (YELLOW) 09/05/17 20:36 Urine Clarity Hazy (Clear) 09/05/17 20:36 Urine pH 6.0 (5.0-8.0) 09/05/17 20:36 Ur Specific [place] 1.010 (1.003-1.030) 09/05/17 20:36 Urine Protein 2+ mg/dL (NEGATIVE) H 09/05/17 20:36 Urine Glucose (UA) 2+ mg/dL (Normal) H 09/05/17 20:36 Urine Ketones Negative mg/dL (NEGATIVE) 09/05/17 20:36 Urine Blood 1+ (NEGATIVE) H 09/05/17 20:36 Urine Nitrate Negative (NEGATIVE) 09/05/17 20:36 Urine Bilirubin Negative (NEGATIVE) 09/05/17 20:36 Urine Urobilinogen Normal mg/dL (0.2-1.0) 09/05/17 20:36 Ur Leukocyte Esterase 3+ [place]/uL (Negative) H 09/05/17 20:36 Urine WBC (Auto) 69 /hpf (0-5) H 09/05/17 20:36 Urine RBC (Auto) 13 /hpf (0-3) H 09/05/17 20:36 Urine WBC Clumps (Auto) Few /hpf (NONE) H 09/05/17 20:36 Ur Squamous Epith Cells < 1 /hpf (0-5) 09/05/17 20:36 Urine Bacteria Rare (<OCC) 09/05/17 20:36 Ur Random Creatinine 26.7 mg/dL 09/05/17 08:39 U Random Total Protein 119.0 mg/dL (0.0-12.0) H 09/05/17 08:39 Ur Random Sodium 75 mmol/L 09/05/17 08:39 Urine Chloride 78 mmol/L (32-290) 09/04/17 08:36 Stool Occult Blood Negative (NEGATIVE) 09/04/17 15:15 Influenza Typ A,B (EIA) Negative for flu a/b (NEGATIVE) 09/04/17 20:40 Ur L.pneumophila Ag Negative (NEGATIVE) 09/04/17 20:40 Blood Type O NEGATIVE 09/04/17 15:15 Antibody Screen Negative 09/04/17 15:15 patient currently improving Urine output better Stable Will transfer to floor CCU Objective - Vital Signs / Intake & Output Vital Signs (Last 4 hours): Vital Signs Temp Pulse Resp BP Pulse Ox 09/06/17 16:00 98.2 F 78 17 98 09/06/17 15:48 79 17 106/53 L 98 09/06/17 15:45 82 17 98 09/06/17 15:30 82 18 98 09/06/17 15:18 89 18 115/61 97 09/06/17 15:15 86 23 99 09/06/17 15:00 82 19 114/54 L 99 09/06/17 14:49 89 19 114/54 L 100 09/06/17 14:45 89 11 L 99 09/06/17 14:30 86 20 99 09/06/17 14:15 86 13 100 09/06/17 14:00 81 22 100 09/06/17 13:48 84 19 118/56 L 100 09/06/17 13:45 79 17 100 Intake and Output (Last 8hrs): Intake & Output 09/06/17 09/06/17 09/06/17 06:59 14:59 22:59 Intake Total 600 Output Total 1900 Balance -1300 Weight 141 lb 5 oz Intake: Oral 600 Output: Urine 1900 2-way Urethral 1900 - Medications Active Medications: Active Medications Generic Name Dose Route Start Last Admin Trade Name Freq PRN Reason Stop Dose Admin Aspirin 81 mg 09/05/17 10:00 09/06/17 11:33 Aspirin Chewable PO 81 mg DAILY [facility] Administration Carvedilol 3.125 mg 09/05/17 18:15 09/06/17 11:34 Coreg PO 3.125 mg BID [facility] Administration Cyanocobalamin 1,000 mcg 09/05/17 09:00 09/05/17 09:09 Vitamin B12 1000 Mcg/Ml Inj IM 1,000 mcg MWF [facility] Administration Ferrous Gluconate 324 mg 09/05/17 14:00 09/05/17 14:14 Fergon PO 324 mg TID [facility] Administration Guaifenesin 600 mg 09/05/17 10:00 09/06/17 11:33 Mucinex La PO 600 mg BID [facility] Administration Heparin Sodium (Porcine) 5,000 units 09/05/17 10:00 09/06/17 11:33 Heparin SC 5,000 units Q12 [facility] Administration Azithromycin 500 mg/ Sodium 250 mls @ 250 mls/hr 09/05/17 10:00 09/06/17 11: 30 Chloride IVPB 250 mls/hr DAILY [facility] Administration Protocol Cefepime HCl 1 gm in 50 mls @ 100 mls/hr 09/07/17 12:00 Maxipime Iv 1 Gm Premix IVPB Q24H [facility] Protocol Insulin Aspart 0 unit 09/04/17 22:00 09/06/17 11:34 Novolog SC Not Given ACHS [facility] Protocol Insulin Glargine 10 unit 09/04/17 22:00 09/05/17 21:00 Lantus SC 10 u HS [facility] Administration Ipratropium [place] 0.5 mg 09/04/17 18:45 09/06/17 13:49 Atrovent IH 0.5 mg RQ6 [facility] Administration Rosuvastatin Calcium 5 mg 09/04/17 22:00 09/05/17 20:59 Crestor PO 5 mg HS [facility] Administration Saccharomyces Boulardii 250 mg 09/05/17 10:00 09/06/17 11:34 Florastor PO 250 mg BID [facility] Administration Sodium Bicarbonate 650 mg 09/05/17 13:00 09/06/17 11:32 Sodium Bicarbonate Tab PO 650 mg BID [facility] Administration Tamsulosin HCl 0.4 mg 09/05/17 12:45 09/06/17 11:33 Flomax PO 0.4 mg DAILY [facility] Administration Vitamin B Complex/Vit C/Folic Acid 1 tab 09/06/17 08:00 09/06/17 11:33 Nephro-Fe PO 1 tab 0800 [facility] Administration - Patient Studies Lab Studies: Microbiology Studies 09/04/17 Unknown Urine Culture - Final Urine Klebsiella Ozaenae 09/04/17 20:30 Blood Culture - Preliminary Blood NO GROWTH AFTER 24 HOURS 09/04/17 20:00 Blood Culture - Preliminary Blood NO GROWTH AFTER 24 HOURS 09/04/17 Unknown MRSA Culture (Admit) - Final Nose MRSA NOT DETECTED Lab Studies 09/06/17 09/06/1718 Range/Units 16:25 11:25 07:07 WBC (4.8-10.8) K/uL RBC (4.40-5.90) Mil/uL Hgb (12.0-18.0) g/dL Hct (35.0-51.0) % MCV (80.0-94.0) fL MCH (27.0-31.0) pg MCHC (33.0-37.0) g/dL RDW (11.5-14.5) % Plt Count (130-400) K/uL MPV (7.2-11.7) fL Neut % (Auto) (50.0-75.0) % Lymph % (Auto) (20.0-40.0) % [place] % (Auto) (0.0-10.0) % Eos % (Auto) (0.0-4.0) % Baso % (Auto) (0.0-2.0) % Neut # (Auto) (1.8-7.0) K/uL Lymph # (Auto) (1.0-4.3) K/uL [place] # (Auto) (0.0-0.8) K/uL Eos # (Auto) (0.0-0.7) K/uL Baso # (Auto) (0.0-0.2) K/uL Sodium (132-148) mmol/L Potassium (3.6-5.2) mmol/L Chloride (98-107) mmol/L Carbon Dioxide (22-30) mmol/L Anion Gap (10-20) BUN (9-20) mg/dL Creatinine (0.8-1.5) mg/dL Est GFR ( Amer) Est GFR (Non-Af Amer) POC Glucose (mg/dL) 370 H 287 H 115 H (65-110) mg/dL Random Glucose (75-110) mg/dL Calcium (8.6-10.4) mg/dl Phosphorus (2.5-4.5) mg/dL Magnesium (1.6-2.3) mg/dL Total Bilirubin (0.2-1.3) mg/dL AST (17-59) U/L ALT (21-72) U/L Alkaline Phosphatase (38-126) U/L Total Protein (6.3-8.3) g/dL Albumin (3.5-5.0) g/dL Globulin (2.2-3.9) gm/dL Albumin/Globulin Ratio (1.0-2.1) Urine Color (YELLOW) Urine Clarity (Clear) Urine pH (5.0-8.0) Ur Specific [place] (1.003-1.030) Urine Protein (NEGATIVE) mg/dL Urine Glucose (UA) (Normal) mg/dL Urine Ketones (NEGATIVE) mg/dL Urine Blood (NEGATIVE) Urine Nitrate (NEGATIVE) Urine Bilirubin (NEGATIVE) Urine Urobilinogen (0.2-1.0) mg/dL Ur Leukocyte Esterase (Negative) [place]/uL Urine WBC (Auto) (0-5) /hpf Urine RBC (Auto) (0-3) /hpf Urine WBC Clumps (Auto) (NONE) /hpf Ur Squamous Epith Cells (0-5) /hpf Urine Bacteria (<OCC) Urine Chloride (32-290) mmol/L 09/06/17 09/06/17 09/05/17 Range/Units 06:20 06:18 21:13 WBC 10.3 (4.8-10.8) K/uL RBC 2.78 L (4.40-5.90) Mil/uL Hgb 8.6 L (12.0-18.0) g/dL Hct 24.0 L (35.0-51.0) % MCV 86.1 D (80.0-94.0) fL MCH 30.7 (27.0-31.0) pg MCHC 35.7 (33.0-37.0) g/dL RDW 14.6 H (11.5-14.5) % Plt Count 298 (130-400) K/uL MPV 8.1 (7.2-11.7) fL Neut % (Auto) 74.1 (50.0-75.0) % Lymph % (Auto) 13.5 L (20.0-40.0) % [place] % (Auto) 9.9 (0.0-10.0) % Eos % (Auto) 1.8 (0.0-4.0) % Baso % (Auto) 0.7 (0.0-2.0) % Neut # (Auto) 7.6 H (1.8-7.0) K/uL Lymph # (Auto) 1.4 (1.0-4.3) K/uL [place] # (Auto) 1.0 H (0.0-0.8) K/uL Eos # (Auto) 0.2 (0.0-0.7) K/uL Baso # (Auto) 0.1 (0.0-0.2) K/uL Sodium 142 (132-148) mmol/L Potassium 3.5 L (3.6-5.2) mmol/L Chloride 110 H (98-107) mmol/L Carbon Dioxide 19 L (22-30) mmol/L Anion Gap 17 (10-20) BUN 67 H (9-20) mg/dL Creatinine 3.7 H (0.8-1.5) mg/dL Est GFR ( Amer) 19 Est GFR (Non-Af Amer) 16 POC Glucose (mg/dL) 254 H (65-110) mg/dL Random Glucose 73 L (75-110) mg/dL Calcium 8.1 L (8.6-10.4) mg/dl Phosphorus 4.2 (2.5-4.5) mg/dL Magnesium 1.7 (1.6-2.3) mg/dL Total Bilirubin 0.4 (0.2-1.3) mg/dL AST 29 (17-59) U/L ALT 23 (21-72) U/L Alkaline Phosphatase 80 (38-126) U/L Total Protein 6.5 (6.3-8.3) g/dL Albumin 2.8 L (3.5-5.0) g/dL Globulin 3.7 (2.2-3.9) gm/dL Albumin/Globulin Ratio 0.8 L (1.0-2.1) Urine Color (YELLOW) Urine Clarity (Clear) Urine pH (5.0-8.0) Ur Specific [place] (1.003-1.030) Urine Protein (NEGATIVE) mg/dL Urine Glucose (UA) (Normal) mg/dL Urine Ketones (NEGATIVE) mg/dL Urine Blood (NEGATIVE) Urine Nitrate (NEGATIVE) Urine Bilirubin (NEGATIVE) Urine Urobilinogen (0.2-1.0) mg/dL Ur Leukocyte Esterase (Negative) [place]/uL Urine WBC (Auto) (0-5) /hpf Urine RBC (Auto) (0-3) /hpf Urine WBC Clumps (Auto) (NONE) /hpf Ur Squamous Epith Cells (0-5) /hpf Urine Bacteria (<OCC) Urine Chloride (32-290) mmol/L 09/05/17 09/04/17 Range/Units 20:36 08:36 WBC (4.8-10.8) K/uL RBC (4.40-5.90) Mil/uL Hgb (12.0-18.0) g/dL Hct (35.0-51.0) % MCV (80.0-94.0) fL MCH (27.0-31.0) pg MCHC (33.0-37.0) g/dL RDW (11.5-14.5) % Plt Count (130-400) K/uL MPV (7.2-11.7) fL Neut % (Auto) (50.0-75.0) % Lymph % (Auto) (20.0-40.0) % [place] % (Auto) (0.0-10.0) % Eos % (Auto) (0.0-4.0) % Baso % (Auto) (0.0-2.0) % Neut # (Auto) (1.8-7.0) K/uL Lymph # (Auto) (1.0-4.3) K/uL [place] # (Auto) (0.0-0.8) K/uL Eos # (Auto) (0.0-0.7) K/uL Baso # (Auto) (0.0-0.2) K/uL Sodium (132-148) mmol/L Potassium (3.6-5.2) mmol/L Chloride (98-107) mmol/L Carbon Dioxide (22-30) mmol/L Anion Gap (10-20) BUN (9-20) mg/dL Creatinine (0.8-1.5) mg/dL Est GFR ( Amer) Est GFR (Non-Af Amer) POC Glucose (mg/dL) (65-110) mg/dL Random Glucose (75-110) mg/dL Calcium (8.6-10.4) mg/dl Phosphorus (2.5-4.5) mg/dL Magnesium (1.6-2.3) mg/dL Total Bilirubin (0.2-1.3) mg/dL AST (17-59) U/L ALT (21-72) U/L Alkaline Phosphatase (38-126) U/L Total Protein (6.3-8.3) g/dL Albumin (3.5-5.0) g/dL Globulin (2.2-3.9) gm/dL Albumin/Globulin Ratio (1.0-2.1) Urine Color Straw (YELLOW) Urine Clarity Hazy (Clear) Urine pH 6.0 (5.0-8.0) Ur Specific [place] 1.010 (1.003-1.030) Urine Protein 2+ H (NEGATIVE) mg/dL Urine Glucose (UA) 2+ H (Normal) mg/dL Urine Ketones Negative (NEGATIVE) mg/dL Urine Blood 1+ H (NEGATIVE) Urine Nitrate Negative (NEGATIVE) Urine Bilirubin Negative (NEGATIVE) Urine Urobilinogen Normal (0.2-1.0) mg/dL Ur Leukocyte Esterase 3+ H (Negative) [place]/uL Urine WBC (Auto) 69 H (0-5) /hpf Urine RBC (Auto) 13 H (0-3) /hpf Urine WBC Clumps (Auto) Few H (NONE) /hpf Ur Squamous Epith Cells < 1 (0-5) /hpf Urine Bacteria Rare (<OCC) Urine Chloride 78 (32-290) mmol/L Laboratory Results - last 24 hr 09/04/17 09/05/17 09/05/17 08:36 20:36 21:13 WBC RBC Hgb Hct MCV MCH MCHC RDW Plt Count MPV Neut % (Auto) Lymph % (Auto) [place] % (Auto) Eos % (Auto) Baso % (Auto) Neut # (Auto) Lymph # (Auto) [place] # (Auto) Eos # (Auto) Baso # (Auto) Sodium Potassium Chloride Carbon Dioxide Anion Gap BUN Creatinine Est GFR ( Amer) Est GFR (Non-Af Amer) POC Glucose (mg/dL) 254 H Random Glucose Calcium Phosphorus Magnesium Total Bilirubin AST ALT Alkaline Phosphatase Total Protein Albumin Globulin Albumin/Globulin Ratio Urine Color Straw Urine Clarity Hazy Urine pH 6.0 Ur Specific [place] 1.010 Urine Protein 2+ H Urine Glucose (UA) 2+ H Urine Ketones Negative Urine Blood 1+ H Urine Nitrate Negative Urine Bilirubin Negative Urine Urobilinogen Normal Ur Leukocyte Esterase 3+ H Urine WBC (Auto) 69 H Urine RBC (Auto) 13 H Urine WBC Clumps (Auto) Few H Ur Squamous Epith Cells < 1 Urine Bacteria Rare Urine Chloride 78 09/06/17 09/06/17 09/06/17 06:18 06:20 07:07 WBC 10.3 RBC 2.78 L Hgb 8.6 L Hct 24.0 L MCV 86.1 D MCH 30.7 MCHC 35.7 RDW 14.6 H Plt Count 298 MPV 8.1 Neut % (Auto) 74.1 Lymph % (Auto) 13.5 L [place] % (Auto) 9.9 Eos % (Auto) 1.8 Baso % (Auto) 0.7 Neut # (Auto) 7.6 H Lymph # (Auto) 1.4 [place] # (Auto) 1.0 H Eos # (Auto) 0.2 Baso # (Auto) 0.1 Sodium 142 Potassium 3.5 L Chloride 110 H Carbon Dioxide 19 L Anion Gap 17 BUN 67 H Creatinine 3.7 H Est GFR ( Amer) 19 Est GFR (Non-Af Amer) 16 POC Glucose (mg/dL) 115 H Random Glucose 73 L Calcium 8.1 L Phosphorus 4.2 Magnesium 1.7 Total Bilirubin 0.4 AST 29 ALT 23 Alkaline Phosphatase 80 Total Protein 6.5 Albumin 2.8 L Globulin 3.7 Albumin/Globulin Ratio 0.8 L Urine Color Urine Clarity Urine pH Ur Specific [place] Urine Protein Urine Glucose (UA) Urine Ketones Urine Blood Urine Nitrate Urine Bilirubin Urine Urobilinogen Ur Leukocyte Esterase Urine WBC (Auto) Urine RBC (Auto) Urine WBC Clumps (Auto) Ur Squamous Epith Cells Urine Bacteria Urine Chloride 09/06/17 09/06/17 11:25 16:25 WBC RBC Hgb Hct MCV MCH MCHC RDW Plt Count MPV Neut % (Auto) Lymph % (Auto) [place] % (Auto) Eos % (Auto) Baso % (Auto) Neut # (Auto) Lymph # (Auto) [place] # (Auto) Eos # (Auto) Baso # (Auto) Sodium Potassium Chloride Carbon Dioxide Anion Gap BUN Creatinine Est GFR ( Amer) Est GFR (Non-Af Amer) POC Glucose (mg/dL) 287 H 370 H Random Glucose Calcium Phosphorus Magnesium Total Bilirubin AST ALT Alkaline Phosphatase Total Protein Albumin Globulin Albumin/Globulin Ratio Urine Color Urine Clarity Urine pH Ur Specific [place] Urine Protein Urine Glucose (UA) Urine Ketones Urine Blood Urine Nitrate Urine Bilirubin Urine Urobilinogen Ur Leukocyte Esterase Urine WBC (Auto) Urine RBC (Auto) Urine WBC Clumps (Auto) Ur Squamous Epith Cells Urine Bacteria Urine Chloride Fingerstick Blood Sugar Results: 124 Critical Care Progress Note - Nutrition Nutrition: Nutrition Category Date Time Status Consistent Carbohydrate [DIET] Diets 09/04/17 Lunch Active
--- NOTE | 2017-09-06 20:17 | PN ---
DATE: 09/06/2017 SUBJECTIVE: The patient is sitting on a chair. He denies any dizziness or chest pain. PHYSICAL EXAMINATION: VITAL SIGNS: Blood pressure 115/61, heart rate 89, temperature 98, respirations 16. HEENT: Normocephalic. CHEST: Clear. HEART: S1 and S2, regular. EXTREMITIES: Trace leg edema. LABORATORY DATA: Today's hemoglobin and hematocrit 8.6 and 24.0. White count and platelet count are within normal limits. Today's BUN and creatinine are 67 and 3.7 respectively. Potassium 3.5, glucose 73. Blood culture negative after 24 hours. Official echo report was consistent with depressed EF at 40%, mid anteroseptal dyskinesis, hypokinetic apex. Consider Takotsubo cardiomyopathy. Consider repeat echo with contrast to rule out apical clot. ASSESSMENT: 1. NonST elevation myocardial infarction. 2. Ischemic cardiomyopathy. The Takotsubo etiology cannot be established unless the patient has unremarkable coronary angiography, which cannot be done at this point because of acute renal failure. 3. Obstructive uropathy and bilateral hydronephrosis. 4. Anemia. 5. Mild hypokalemia. RECOMMENDATIONS: mg once a day, Coreg at 3.125 mg twice a day, Crestor 5 mg once a day, subcutaneous heparin 5000 units q.12 hours. The patient will be booked for repeat echocardiographic study with contrast next week. Kaleb Newman MD
--- NOTE | 2017-09-06 20:31 | CP.PCM.PN ---
Subjective - Date & Time of Evaluation Date of Evaluation: 09/06/17 Time of Evaluation: 18:00 - Subjective Subjective: Seen sitting in chair, reports feeling better. Objective - Vital Signs/Intake and Output Vital Signs (last 24 hours): Temp Pulse Resp BP Pulse Ox 98.2 F 89 20 115/57 L 98 09/06/17 16:00 09/06/17 20:00 09/06/17 20:00 09/06/17 19:48 09/06/17 17:48 Intake and Output: 09/06/17 09/07/17 18:59 06:59 Intake Total 100 Output Total 1750 Balance -1650 - Medications Medications: Current Medications Aspirin (Aspirin Chewable) 81 mg PO DAILY [facility] Last Admin: 09/06/17 11:33 Dose: 81 mg Carvedilol (Coreg) 3.125 mg PO BID [facility] Last Admin: 09/06/17 17:45 Dose: 3.125 mg Cyanocobalamin (Vitamin B12 1000 Mcg/Ml Inj) 1,000 mcg IM MWF [facility] Last Admin: 09/05/17 09:09 Dose: 1,000 mcg Dorzolamide HCl (Trusopt) 0 ml OU BID [facility] Ferrous Gluconate (Fergon) 324 mg PO TID [facility] Last Admin: 09/05/17 14:14 Dose: 324 mg Guaifenesin (Mucinex La) 600 mg PO BID [facility] Last Admin: 09/06/17 17:45 Dose: 600 mg Heparin Sodium (Porcine) (Heparin) 5,000 units SC Q12 [facility] Last Admin: 09/06/17 11:33 Dose: 5,000 units Azithromycin 500 mg/ Sodium (Chloride) 250 mls @ 250 mls/hr IVPB DAILY [facility] PRN Reason: Protocol Last Admin: 09/06/17 11:30 Dose: 250 mls/hr Cefepime HCl (Maxipime Iv 1 Gm Premix) 1 gm in 50 mls @ 100 mls/hr IVPB Q24H [facility] PRN Reason: Protocol Insulin Aspart (Novolog) 0 unit SC ACHS [facility] PRN Reason: Protocol Last Admin: 09/06/17 17:45 Dose: 6 unit Insulin Glargine (Lantus) 10 unit SC HS [facility] Last Admin: 09/05/17 21:00 Dose: 10 u Ipratropium [place] (Atrovent) 0.5 mg IH RQ6 [facility] Last Admin: 09/06/17 19:25 Dose: 0.5 mg Latanoprost (Xalatan Opht) 0 ml OS HS [facility] Rosuvastatin Calcium (Crestor) 5 mg PO HS [facility] Last Admin: 09/05/17 20:59 Dose: 5 mg Saccharomyces Boulardii (Florastor) 250 mg PO BID [facility] Last Admin: 09/06/17 17:44 Dose: 250 mg Sodium Bicarbonate (Sodium Bicarbonate Tab) 650 mg PO BID [facility] Last Admin: 09/06/17 17:44 Dose: 650 mg Tamsulosin HCl (Flomax) 0.4 mg PO DAILY [facility] Last Admin: 09/06/17 11:33 Dose: 0.4 mg Timolol Maleate (Timoptic 0.25% Ophth Soln) 0 drop OU Q12H [facility] Vitamin B Complex/Vit C/Folic Acid (Nephro-Fe) 1 tab PO 0800 [facility] Last Admin: 09/06/17 11:33 Dose: 1 tab - Labs Labs: 09/06/17 06:20 09/06/17 06:18 PT 14.4 SECONDS (9.7-12.2) H 09/04/17 22:27 INR 1.3 09/04/17 22:27 APTT 22 SECONDS (21-34) 09/04/17 22:27 - Head Exam Head Exam: ATRAUMATIC - Eye Exam Eye Exam: Normal appearance - ENT Exam ENT Exam: Mucous Membranes Dry - Respiratory Exam Respiratory Exam: NORMAL BREATHING PATTERN - Cardiovascular Exam Cardiovascular Exam: +S1, +S2 - GI/Abdominal Exam GI & Abdominal Exam: Normal Bowel Sounds Assessment and Plan (1) Anemia Assessment & Plan: work up consistent with chronic disease and renal disease ? bone metastasis transfusion support PRN Status: Acute (2) Elevated PSA Assessment & Plan: with bone lesions concerning for metastatic prostate cancer will need biopsy when more stable Status: Acute
[2017-09-06] MEDS: (Lantus) Insulin Glargine, Recombinant SC SCH (21:28)
[2017-09-06] MEDS: Latanoprost 2.5 ml Opht Soln OS SCH (21:40)
[2017-09-07] MEDS: Ipratropium 0.02% Inhal Soln (0.5 mg/2.5 ml) UD IH SCH ×4 (02:48→19:35)
[2017-09-07] MEDS: Timolol 0.25% Ophth SOLN OU SCH ×2 (05:00→17:39)
[2017-09-07 06:05] LABS: EOS # 0.4 K/uL (0.0-0.7); LYMPH # 1.8 K/uL (1.0-4.3); MEAN PLATELET VOLUME 7.9 fL (7.2-11.7); RBC 2.96 Mil/uL (4.40-5.90)
[2017-09-07 06:17] LABS: BASO % 0.3 % (0.0-2.0); EOS % 3.2 % (0.0-4.0); HEMOGLOBIN 8.7 g/dL (12.0-18.0); LYMPH % 15.9 % (20.0-40.0); MEAN CELL VOLUME 87.4 fL (80.0-94.0); MEAN CORPUSCULAR HEMOGLOBIN 29.5 pg (27.0-31.0); MEAN CORPUSCULAR HGB CONC 33.8 g/dL (33.0-37.0); MONO # 1.1 K/uL (0.0-0.8); NEUT # 7.8 K/uL (1.8-7.0); NEUT % 70.6 % (50.0-75.0); RED CELL DISTRIBUTION WIDTH 14.6 % (11.5-14.5); WHITE BLOOD COUNT 11.1 K/uL (4.8-10.8)
[2017-09-07 06:23] LABS: ALB/GLOB RATIO 0.8 (1.0-2.1); ALBUMIN 2.9 g/dL (3.5-5.0)
[2017-09-07] MEDS: (Novolog) Insulin Aspart, Recombinant 100 u/ml 10 ml vial SC SCH ×4 (08:03→21:13)
[2017-09-07] MEDS: Multivitamin Vitamin B Complex (Nephro-Vite) Tab PO SCH (08:30)
[2017-09-07] MEDS: Saccharomyces Boulardi 250 mg Cap PO SCH ×2 (09:14→17:35)
[2017-09-07] MEDS: Dorzolamide 2% Opht Sol 10ml OU SCH ×2 (09:16→17:38)
[2017-09-07] MEDS: Azithromycin 500 MG in Sodium Chloride 0.9% 250 ML IVPB SCH (09:17)
[2017-09-07] MEDS: guaiFENesin 600 mg ER Tab PO SCH ×2 (10:02→17:36)
[2017-09-07] MEDS: Cefepime IV 1 gm in Dextrose 1 GM/50 ML BAG IVPB SCH (11:08)
--- NOTE | 2017-09-07 17:25 | CP.PCM.PN ---
Subjective - Date & Time of Evaluation Date of Evaluation: 09/07/17 Time of Evaluation: 11:40 - Subjective Subjective: clinically same Objective - Vital Signs/Intake and Output Vital Signs (last 24 hours): Temp Pulse Resp BP Pulse Ox 97.7 F 77 15 140/68 100 09/07/17 12:00 09/07/17 15:18 09/07/17 15:18 09/07/17 15:18 09/07/17 15:18 Intake and Output: 09/07/17 09/07/17 06:59 18:59 Intake Total 700 240 Output Total 170 Balance 530 240 - Medications Medications: Current Medications Aspirin (Aspirin Chewable) 81 mg PO DAILY [facility] Last Admin: 09/07/17 09:13 Dose: 81 mg Carvedilol (Coreg) 3.125 mg PO BID [facility] Last Admin: 09/07/17 09:13 Dose: 3.125 mg Cyanocobalamin (Vitamin B12 1000 Mcg/Ml Inj) 1,000 mcg IM MWF [facility] Last Admin: 09/05/17 09:09 Dose: 1,000 mcg Dorzolamide HCl (Trusopt) 0 ml OU BID [facility] Last Admin: 09/07/17 09:16 Dose: 1 drop Ferrous Gluconate (Fergon) 324 mg PO TID [facility] Last Admin: 09/05/17 14:14 Dose: 324 mg Guaifenesin (Mucinex La) 600 mg PO BID [facility] Last Admin: 09/07/17 10:02 Dose: 600 mg Heparin Sodium (Porcine) (Heparin) 5,000 units SC Q12 [facility] Last Admin: 09/07/17 09:14 Dose: 5,000 units Azithromycin 500 mg/ Sodium (Chloride) 250 mls @ 250 mls/hr IVPB DAILY [facility] PRN Reason: Protocol Last Admin: 09/07/17 09:17 Dose: 250 mls/hr Cefepime HCl (Maxipime Iv 1 Gm Premix) 1 gm in 50 mls @ 100 mls/hr IVPB Q24H [facility] PRN Reason: Protocol Last Admin: 09/07/17 11:08 Dose: 100 mls/hr Insulin Aspart (Novolog) 0 unit SC ACHS [facility] PRN Reason: Protocol Last Admin: 09/07/17 11:51 Dose: 3 unit Insulin Glargine (Lantus) 10 unit SC HS [facility] Last Admin: 09/06/17 21:28 Dose: 10 u Ipratropium [place]on (Atrovent) 0.5 mg IH RQ6 [facility] Last Admin: 09/07/17 13:20 Dose: Not Given Latanoprost (Xalatan Opht) 0 ml OS HS [facility] Last Admin: 09/06/17 21:40 Dose: 2.5 ml Rosuvastatin Calcium (Crestor) 5 mg PO HS [facility] Last Admin: 09/06/17 21:28 Dose: 5 mg Saccharomyces Boulardii (Florastor) 250 mg PO BID [facility] Last Admin: 09/07/17 09:14 Dose: 250 mg Sodium Bicarbonate (Sodium Bicarbonate Tab) 650 mg PO BID [facility] Last Admin: 09/07/17 09:14 Dose: 650 mg Tamsulosin HCl (Flomax) 0.4 mg PO DAILY [facility] Last Admin: 09/07/17 09:14 Dose: 0.4 mg Timolol Maleate (Timoptic 0.25% Ophth Soln) 0 drop OU Q12H [facility] Last Admin: 09/07/17 05:00 Dose: Not Given Vitamin B Complex/Vit C/Folic Acid (Nephro-Fe) 1 tab PO 0800 [facility] Last Admin: 09/07/17 08:30 Dose: 1 tab - Labs Labs: 09/07/17 06:01 09/07/17 06:01 PT 14.4 SECONDS (9.7-12.2) H 09/04/17 22:27 INR 1.3 09/04/17 22:27 APTT 22 SECONDS (21-34) 09/04/17 22:27 - Constitutional Appears: Well - Head Exam Head Exam: ATRAUMATIC, NORMAL INSPECTION, NORMOCEPHALIC - Eye Exam Eye Exam: EOMI, Normal appearance, PERRL Pupil Exam: NORMAL ACCOMODATION, PERRL - ENT Exam ENT Exam: Mucous Membranes Moist, Normal Exam - Neck Exam Neck Exam: Full ROM, Normal Inspection. absent: Lymphadenopathy - Respiratory Exam Respiratory Exam: Decreased Breath Sounds - Cardiovascular Exam Cardiovascular Exam: REGULAR RHYTHM, +S1, +S2 - GI/Abdominal Exam GI & Abdominal Exam: Soft, Diminished Bowel Sounds - Rectal Exam Rectal Exam: Deferred
--- NOTE | 2017-09-07 19:39 | PN ---
DATE: 09/07/2017 TIME OF FOLLOWUP: Roughly 2:20 p.m. SUBJECTIVE: The patient is much more comfortable today and much more alert after insertion of the Coude catheter for bladder drainage. PHYSICAL EXAMINATION: ABDOMEN: Soft, nondistended, nontender. No CVA tenderness. No suprapubic tenderness. The Nair catheter is draining clear fluid well. LABORATORY DATA: His laboratory evaluation on 09/07/2017 shows a CBC with a WBC count of 11.1, hemoglobin of 8.7, and hematocrit of 25.9 with a platelet count of 289,000 showing a relatively severe anemia. His chem profile is improved today with the Nair catheter drainage. His sodium is 140, potassium 3.6, chloride 108, CO2 17, BUN and creatinine of 67 and 3.1, which are both decreased from 09/05/2017, and his GFR has increased up to 19. His random glucose was 66 today and 61. His alk phos was 80. His AST was 44 and ALT was 42. However, his total bilirubin was 0.4. His calcium was 8.0. This shows an improvement in his renal function with the Nair catheter drainage. His repeat new PSA is still pending as is the bone scan, which will probably be done tomorrow, 09/08/2017. DIAGNOSTIC IMPRESSION: For this patient is, 1. Urinary retention. 2. Urosepsis. 3. 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 PLAN: For this patient is just to continue the patient with Nair catheter drainage and continue his IV antibiotics at this time. Kosta Pham MD
--- NOTE | 2017-09-07 19:43 | PN ---
DATE: 09/07/2017 SUBJECTIVE: The patient denies any chest pain. No dizziness or headache. PHYSICAL EXAMINATION: VITAL SIGNS: Blood pressure 125/64, heart rate 76, temperature 97.7, respirations 21. HEENT: Pale conjunctiva. CHEST: Diminished breath sounds over the bases. HEART: S1 and S2, regular. EXTREMITIES: Trace pedal edema. LABORATORY DATA: Today's hemoglobin and hematocrit are 8.7 and 25.9, white count 11.1, platelet count 289,000. Today's BUN and creatinine are 67 and 3.1 respectively. Glucose of 61. ASSESSMENT: 1. Status post nonST elevation myocardial infarction. 2. Ischemic cardiomyopathy. 3. Obstructive uropathy and severe bilateral hydronephrosis. 4. Anemia. RECOMMENDATIONS: Continue current aspirin. Continue IV Zithromax 500 mg daily. Continue Coreg at 3.125 mg twice a day, Crestor at 5 mg once a day, ferrous gluconate at one tablet t.i.d., subcutaneous heparin 5000 units every 12 hours, IV cefepime at 1 gm daily. The case was discussed with primary care physician, Dr. Alcala. The patient is high risk for cardiac catheterization. However, I will discuss that risk with the patient's family once they are available. Kaleb Newman MD
--- NOTE | 2017-09-07 20:51 | CP.PCM.PN ---
Subjective - Date & Time of Evaluation Date of Evaluation: 09/07/17 Time of Evaluation: 20:50 - Subjective Subjective: Assessment: critical Acute Kidney Injury (N17.9) likely due to Obstructive uropathy as evident by bilateral hydronephrosis Retroperitoneal adenopathy, Possible metastatic prostate malignancy Severe anemia, UTI Acute [place] Hyperkalemia and metabolic acidosis Pneumonia CHF hx of DM, HTN Plan No acute need for renal replacement therapy at this time. Renal fxn continues to improve w/ garcia on iron on bicarb on flomax f/u and heme defer WAYNE to onc S: seen and examined resting comfortably Physical Examination: General Appearance: Comfortable, in no acute respiratory distress, co-operative . Vitals reviewed and noted as below Head; Atraumatic, normocephalic ENT: no ulcers no thrush. Tongue is midline. Oropharynx: no rash or ulcers. Dry tongue, has hoarseness of voice EYES: Pupils are equal, Sclera is anicteric. Neck; supple no lymphadenopathy, no thyromegaly or bruit Lungs: Normal respiratory rate/effort. Breath sounds bilateral Decreased at bases with few crackles Heart: Normal rate. s1s2 normal. No rub or gallop. Extremities: no edema. No varicose veins Neurological: Patient is alert follows commands Skin: Warm and dry. Normal turgor. No rash. Palpitation: Normal elasticity for age Abdomen: Abdomen is soft. Bowel sounds +. There is no abdominal tenderness, no guarding/rigidity no organomegaly Psych: flat affect MSK: no joint tenderness or swelling. Digits and nails normal, no deformity : + garcia Labs/imaging reviewed. Past medical history, past surgical history, family history, social history, allergy reviewed and noted as below Family hx: no hx of CKD. Rest non-contributory Objective - Vital Signs/Intake and Output Vital Signs (last 24 hours): Temp Pulse Resp BP Pulse Ox 98.4 F 82 15 137/75 100 09/07/17 20:00 09/07/17 20:00 09/07/17 20:00 09/07/17 19:48 09/07/17 20:00 Intake and Output: 09/07/17 09/08/17 18:59 06:59 Intake Total 2220 Output Total 1800 Balance 420 - Medications Medications: Current Medications Aspirin (Aspirin Chewable) 81 mg PO DAILY [facility] Last Admin: 09/07/17 09:13 Dose: 81 mg Carvedilol (Coreg) 3.125 mg PO BID [facility] Last Admin: 09/07/17 17:35 Dose: 3.125 mg Cyanocobalamin (Vitamin B12 1000 Mcg/Ml Inj) 1,000 mcg IM MWF [facility] Last Admin: 09/05/17 09:09 Dose: 1,000 mcg Dorzolamide HCl (Trusopt) 0 ml OU BID [facility] Last Admin: 09/07/17 17:38 Dose: 1 drop Ferrous Gluconate (Fergon) 324 mg PO TID [facility] Last Admin: 09/05/17 14:14 Dose: 324 mg Guaifenesin (Mucinex La) 600 mg PO BID [facility] Last Admin: 09/07/17 17:36 Dose: 600 mg Heparin Sodium (Porcine) (Heparin) 5,000 units SC Q12 [facility] Last Admin: 09/07/17 09:14 Dose: 5,000 units Azithromycin 500 mg/ Sodium (Chloride) 250 mls @ 250 mls/hr IVPB DAILY [facility] PRN Reason: Protocol Last Admin: 09/07/17 09:17 Dose: 250 mls/hr Cefepime HCl (Maxipime Iv 1 Gm Premix) 1 gm in 50 mls @ 100 mls/hr IVPB Q24H [facility] PRN Reason: Protocol Last Admin: 09/07/17 11:08 Dose: 100 mls/hr Insulin Aspart (Novolog) 0 unit SC ACHS [facility] PRN Reason: Protocol Last Admin: 09/07/17 17:36 Dose: 2 unit Insulin Glargine (Lantus) 10 unit SC HS [facility] Last Admin: 09/06/17 21:28 Dose: 10 u Ipratropium [place] (Atrovent) 0.5 mg IH RQ6 [facility] Last Admin: 09/07/17 19:35 Dose: 0.5 mg Latanoprost (Xalatan Opht) 0 ml OS HS [facility] Last Admin: 09/06/17 21:40 Dose: 2.5 ml Rosuvastatin Calcium (Crestor) 5 mg PO HS [facility] Last Admin: 09/06/17 21:28 Dose: 5 mg Saccharomyces Boulardii (Florastor) 250 mg PO BID [facility] Last Admin: 09/07/17 17:35 Dose: 250 mg Sodium Bicarbonate (Sodium Bicarbonate Tab) 650 mg PO BID [facility] Last Admin: 09/07/17 17:36 Dose: 650 mg Tamsulosin HCl (Flomax) 0.4 mg PO DAILY [facility] Last Admin: 09/07/17 09:14 Dose: 0.4 mg Timolol Maleate (Timoptic 0.25% Ophth Soln) 0 drop OU Q12H [facility] Last Admin: 09/07/17 17:39 Dose: 1 drop Vitamin B Complex/Vit C/Folic Acid (Nephro-Fe) 1 tab PO 0800 [facility] Last Admin: 09/07/17 08:30 Dose: 1 tab - Labs Labs: 09/07/17 06:01 09/07/17 06:01 PT 14.4 SECONDS (9.7-12.2) H 09/04/17 22:27 INR 1.3 09/04/17 22:27 APTT 22 SECONDS (21-34) 09/04/17 22:27
[2017-09-07] MEDS: Latanoprost 2.5 ml Opht Soln OS SCH (21:11)
[2017-09-07] MEDS: (Lantus) Insulin Glargine, Recombinant SC SCH (21:12)
[2017-09-08] MEDS: Ipratropium 0.02% Inhal Soln (0.5 mg/2.5 ml) UD IH SCH ×4 (03:30→20:00)
[2017-09-08] MEDS: Timolol 0.25% Ophth SOLN OU SCH ×3 (05:02→17:53)
[2017-09-08] MEDS: (Novolog) Insulin Aspart, Recombinant 100 u/ml 10 ml vial SC SCH ×4 (07:55→21:14)
[2017-09-08] MEDS: Multivitamin Vitamin B Complex (Nephro-Vite) Tab PO SCH (08:19)
[2017-09-08] MEDS: guaiFENesin 600 mg ER Tab PO SCH ×2 (09:51→17:53)
[2017-09-08] MEDS: Saccharomyces Boulardi 250 mg Cap PO SCH ×2 (09:51→17:38)
[2017-09-08] MEDS: Azithromycin 500 MG in Sodium Chloride 0.9% 250 ML IVPB SCH (09:52)
[2017-09-08] MEDS: Dorzolamide 2% Opht Sol 10ml OU SCH ×3 (10:06→17:11)
--- NOTE | 2017-09-08 10:41 | CP.PCM.PN ---
Subjective - Date & Time of Evaluation Date of Evaluation: 09/08/17 Time of Evaluation: 08:00 - Subjective Subjective: IMPROVING OOB TO CHAIR KLEBS UTI/SEPSIS R/O PROSTATE CA Objective - Vital Signs/Intake and Output Vital Signs (last 24 hours): Temp Pulse Resp BP Pulse Ox 98.2 F 77 19 140/73 99 09/08/17 08:00 09/08/17 08:00 09/08/17 08:00 09/08/17 08:00 09/08/17 08:00 Intake and Output: 09/08/17 09/08/17 06:59 18:59 Intake Total 480 Output Total 1900 Balance -1420 - Medications Medications: Current Medications Aspirin (Aspirin Chewable) 81 mg PO DAILY [facility] Last Admin: 09/08/17 09:50 Dose: 81 mg Carvedilol (Coreg) 3.125 mg PO BID [facility] Last Admin: 09/08/17 09:51 Dose: 3.125 mg Cyanocobalamin (Vitamin B12 1000 Mcg/Ml Inj) 1,000 mcg IM MWF [facility] Last Admin: 09/08/17 09:53 Dose: 1,000 mcg Dorzolamide HCl (Trusopt) 0 ml OU BID [facility] Last Admin: 09/08/17 10:07 Dose: 1 drop Ferrous Gluconate (Fergon) 324 mg PO TID [facility] Last Admin: 09/05/17 14:14 Dose: 324 mg Guaifenesin (Mucinex La) 600 mg PO BID [facility] Last Admin: 09/08/17 09:51 Dose: 600 mg Heparin Sodium (Porcine) (Heparin) 5,000 units SC Q12 [facility] Azithromycin 500 mg/ Sodium (Chloride) 250 mls @ 250 mls/hr IVPB DAILY [facility] PRN Reason: Protocol Last Admin: 09/08/17 09:52 Dose: 250 mls/hr Cefepime HCl (Maxipime Iv 1 Gm Premix) 1 gm in 50 mls @ 100 mls/hr IVPB Q24H [facility] PRN Reason: Protocol Last Admin: 09/07/17 11:08 Dose: 100 mls/hr Insulin Aspart (Novolog) 0 unit SC ACHS [facility] PRN Reason: Protocol Last Admin: 09/08/17 07:55 Dose: 2 unit Insulin Glargine (Lantus) 10 unit SC HS [facility] Last Admin: 09/07/17 21:12 Dose: 10 u Ipratropium [place] (Atrovent) 0.5 mg IH RQ6 [facility] Last Admin: 09/08/17 07:15 Dose: 0.5 mg Latanoprost (Xalatan Opht) 0 ml OS HS [facility] Last Admin: 09/07/17 21:11 Dose: 2.5 ml Rosuvastatin Calcium (Crestor) 5 mg PO HS [facility] Last Admin: 09/07/17 21:12 Dose: 5 mg Saccharomyces Boulardii (Florastor) 250 mg PO BID [facility] Last Admin: 09/08/17 09:51 Dose: 250 mg Sodium Bicarbonate (Sodium Bicarbonate Tab) 650 mg PO BID [facility] Last Admin: 09/08/17 09:51 Dose: 650 mg Tamsulosin HCl (Flomax) 0.4 mg PO DAILY [facility] Last Admin: 09/08/17 09:50 Dose: 0.4 mg Timolol Maleate (Timoptic 0.25% Ophth Soln) 0 drop OU Q12H [facility] Last Admin: 09/08/17 05:02 Dose: 1 drop Vitamin B Complex/Vit C/Folic Acid (Nephro-Fe) 1 tab PO 0800 [facility] Last Admin: 09/08/17 08:19 Dose: 1 tab - Labs Labs: 09/07/17 06:01 09/07/17 06:01 PT 14.4 SECONDS (9.7-12.2) H 09/04/17 22:27 INR 1.3 09/04/17 22:27 APTT 22 SECONDS (21-34) 09/04/17 22:27 - Constitutional Appears: Cachectic, Chronically Ill - Head Exam Head Exam: NORMOCEPHALIC - Eye Exam Eye Exam: PERRL - ENT Exam ENT Exam: Mucous Membranes Dry - Neck Exam Neck Exam: absent: Lymphadenopathy - Respiratory Exam Respiratory Exam: Decreased Breath Sounds - Cardiovascular Exam Cardiovascular Exam: REGULAR RHYTHM, +S1, +S2 - GI/Abdominal Exam GI & Abdominal Exam: Distended, Soft. absent: Tenderness - Rectal Exam Rectal Exam: Deferred - Exam Exam: NORMAL INSPECTION - Extremities Exam Extremities Exam: absent: Pedal Edema - Back Exam Back Exam: absent: CVA tenderness (L), CVA tenderness (R) - Neurological Exam Neurological Exam: Alert, Awake, Oriented x3 Neuro motor strength exam: Left Upper Extremity: 3, Right Upper Extremity: 3, Left Lower Extremity: 3, Right Lower Extremity: 3 - Psychiatric Exam Psychiatric exam: Depressed - Skin Skin Exam: Dry Assessment and Plan (1) NSTEMI (non-ST elevated myocardial infarction) Status: Acute (2) Obstructive uropathy Status: Acute (3) Diabetes mellitus Status: Acute (4) UTI (urinary tract infection) Status: Acute (5) SHANNAN (acute kidney injury) Status: Acute
[2017-09-08] MEDS: Cefepime IV 1 gm in Dextrose 1 GM/50 ML BAG IVPB SCH (11:32)
[2017-09-08] MEDS ORDERED: Perflutren Lipid Microsphere 1.5 ML SUS IV ONE (11:34)
[2017-09-08 12:35] LABS: BASO % 0.3 % (0.0-2.0); EOS # 0.2 K/uL (0.0-0.7); EOS % 2.2 % (0.0-4.0); HEMOGLOBIN 9.1 g/dL (12.0-18.0); LYMPH # 1.3 K/uL (1.0-4.3); LYMPH % 11.5 % (20.0-40.0); MEAN CELL VOLUME 88.9 fL (80.0-94.0); MEAN CORPUSCULAR HEMOGLOBIN 30.1 pg (27.0-31.0); MEAN CORPUSCULAR HGB CONC 33.9 g/dL (33.0-37.0); MEAN PLATELET VOLUME 7.5 fL (7.2-11.7); MONO % 8.8 % (0.0-10.0); NEUT # 8.8 K/uL (1.8-7.0); NEUT % 77.2 % (50.0-75.0); RBC 3.02 Mil/uL (4.40-5.90); RED CELL DISTRIBUTION WIDTH 15.1 % (11.5-14.5); WHITE BLOOD COUNT 11.4 K/uL (4.8-10.8)
[2017-09-08 12:48] LABS: CALCIUM 8.3 mg/dl (8.6-10.4)
--- NOTE | 2017-09-08 13:42 | CP.PCM.PN ---
Subjective - Date & Time of Evaluation Date of Evaluation: 09/08/17 Time of Evaluation: 13:20 - Subjective Subjective: clinically same Objective - Vital Signs/Intake and Output Vital Signs (last 24 hours): Temp Pulse Resp BP Pulse Ox 98.2 F 72 15 132/78 94 L 09/08/17 12:00 09/08/17 12:00 09/08/17 12:00 09/08/17 12:00 09/08/17 12:00 Intake and Output: 09/08/17 09/08/17 06:59 18:59 Intake Total 480 Output Total 1900 Balance -1420 - Medications Medications: Current Medications Aspirin (Aspirin Chewable) 81 mg PO DAILY [facility] Last Admin: 09/08/17 09:50 Dose: 81 mg Carvedilol (Coreg) 3.125 mg PO BID [facility] Last Admin: 09/08/17 09:51 Dose: 3.125 mg Cyanocobalamin (Vitamin B12 1000 Mcg/Ml Inj) 1,000 mcg IM MWF [facility] Last Admin: 09/08/17 09:53 Dose: 1,000 mcg Dorzolamide HCl (Trusopt) 0 ml OU BID [facility] Last Admin: 09/08/17 10:07 Dose: 1 drop Ferrous Gluconate (Fergon) 324 mg PO TID [facility] Last Admin: 09/05/17 14:14 Dose: 324 mg Guaifenesin (Mucinex La) 600 mg PO BID [facility] Last Admin: 09/08/17 09:51 Dose: 600 mg Heparin Sodium (Porcine) (Heparin) 5,000 units SC Q12 [facility] Azithromycin 500 mg/ Sodium (Chloride) 250 mls @ 250 mls/hr IVPB DAILY [facility] PRN Reason: Protocol Last Admin: 09/08/17 09:52 Dose: 250 mls/hr Cefepime HCl (Maxipime Iv 1 Gm Premix) 1 gm in 50 mls @ 100 mls/hr IVPB Q24H [facility] PRN Reason: Protocol Last Admin: 09/08/17 11:32 Dose: 100 mls/hr Insulin Aspart (Novolog) 0 unit SC ACHS [facility] PRN Reason: Protocol Last Admin: 09/08/17 11:29 Dose: 4 unit Insulin Glargine (Lantus) 10 unit SC HS [facility] Last Admin: 09/07/17 21:12 Dose: 10 u Ipratropium [place] (Atrovent) 0.5 mg IH RQ6 [facility] Last Admin: 09/08/17 13:28 Dose: 0.5 mg Latanoprost (Xalatan Opht) 0 ml OS HS [facility] Last Admin: 09/07/17 21:11 Dose: 2.5 ml Rosuvastatin Calcium (Crestor) 5 mg PO HS [facility] Last Admin: 09/07/17 21:12 Dose: 5 mg Saccharomyces Boulardii (Florastor) 250 mg PO BID [facility] Last Admin: 09/08/17 09:51 Dose: 250 mg Sodium Bicarbonate (Sodium Bicarbonate Tab) 650 mg PO BID [facility] Last Admin: 09/08/17 09:51 Dose: 650 mg Tamsulosin HCl (Flomax) 0.4 mg PO DAILY [facility] Last Admin: 09/08/17 09:50 Dose: 0.4 mg Timolol Maleate (Timoptic 0.25% Ophth Soln) 0 drop OU Q12H [facility] Last Admin: 09/08/17 05:02 Dose: 1 drop Vitamin B Complex/Vit C/Folic Acid (Nephro-Fe) 1 tab PO 0800 [facility] Last Admin: 09/08/17 08:19 Dose: 1 tab - Labs Labs: 09/08/17 12:31 09/08/17 12:31 PT 14.4 SECONDS (9.7-12.2) H 09/04/17 22:27 INR 1.3 09/04/17 22:27 APTT 22 SECONDS (21-34) 09/04/17 22:27 - Constitutional Appears: Well - Head Exam Head Exam: ATRAUMATIC, NORMAL INSPECTION, NORMOCEPHALIC - Eye Exam Eye Exam: EOMI, Normal appearance, PERRL Pupil Exam: NORMAL ACCOMODATION, PERRL - ENT Exam ENT Exam: Mucous Membranes Moist, Normal Exam - Neck Exam Neck Exam: Full ROM, Normal Inspection. absent: Lymphadenopathy - Respiratory Exam Respiratory Exam: Decreased Breath Sounds - Cardiovascular Exam Cardiovascular Exam: REGULAR RHYTHM, +S1, +S2 - GI/Abdominal Exam GI & Abdominal Exam: Soft, Diminished Bowel Sounds - Rectal Exam Rectal Exam: Deferred
--- NOTE | 2017-09-08 14:52 | CP.PCM.PN ---
Subjective - Date & Time of Evaluation Date of Evaluation: 09/08/17 Time of Evaluation: 14:50 - Subjective Subjective: Nephrology Consultation Note: Assessment: stable Acute Kidney Injury (N17.9) likely due to Obstructive uropathy as evident by bilateral hydronephrosis: improving Hypomagnesemia Retroperitoneal adenopathy, Possible metastatic prostate malignancy Severe anemia, UTI Acute FL Hyperkalemia and metabolic acidosis Pneumonia CHF hx of DM, HTN Plan No acute need for renal replacement therapy at this time. Maintain hemodynamics stable, avoid hypotension, Patient not on ACEI/ARB due to SHANNAN Monitor Input/Output, daily weights and renal function with basic metabolic panel continue with iron supplements, sodium bicarbonate 650 mg 2 times a day and Flomax 0.4 mg once a day appreciate and Heme evaluation Anemia management as per heme/onc supplemented mag Dose meds/antibiotics for reduced GFR. Avoid fleets enema/magnesium based laxatives. Avoid nephrotoxins/NSAIDs/ iodinated contrast (unless needed emergently) Glycemic control Further work up/management as per primary team Thanks for allowing me to participate in care of your patient. Will follow patient with you. Please call if any Qs. 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 Patient found to have acute kidney injury acute FL hyperkalemia pneumonia and severe anemia Denies OTC/herbal meds or NSAIDs No recent iodinated contrast exposure. No obvious episodes of low BP Except lowest blood pressure 98/55 ROS: Cardiovascular: No chest pain. Pulmonary: No shortness of breath Gastrointestinal: denies abdominal pain No nausea. No vomiting. Genitourinary: has garcia All other negative except as mentioned in HPI. UOP and renal fxn much better s/ p garcia Physical Examination: General Appearance: Comfortable, in no acute respiratory distress, co-operative . Vitals reviewed and noted as below Head; Atraumatic, normocephalic ENT: no ulcers no thrush. Tongue is midline. Oropharynx: no rash or ulcers. EYES: Pupils are equal, round and reactive to light accommodation. Eye muscles and extraocular movement intact. Sclera is anicteric. Neck; supple no lymphadenopathy, no thyromegaly or bruit Lungs: Normal respiratory rate/effort. Breath sounds bilateral Decreased at bases with few crackles Heart: Normal rate. s1s2 normal. No rub or gallop. Extremities: no edema. No varicose veins Neurological: Patient is alert, awake and No focal deficit. Strength bilateral appropriate and equal Skin: Warm and dry. Normal turgor. No rash. Palpitation: Normal elasticity for age Abdomen: Abdomen is soft. Bowel sounds +. There is no abdominal tenderness, no guarding/rigidity no organomegaly Psych: Limited insight insight and Flat affect/mood MSK: no joint tenderness or swelling. Digits and nails normal, no deformity : kidney not palpable has garcia Labs/imaging reviewed. Past medical history, past surgical history, family history, social history, allergy reviewed and noted as below Family hx: no hx of CKD. Rest non-contributory Renal sonogram severe bilateral hydronephrosis BNP 70,000 Urine protein creatinine ratio 2 gram Iron saturation 7% ferritin 198 Objective - Vital Signs/Intake and Output Vital Signs (last 24 hours): Temp Pulse Resp BP Pulse Ox 98.2 F 72 15 132/78 94 L 09/08/17 12:00 09/08/17 12:00 09/08/17 12:00 09/08/17 12:00 09/08/17 12:00 Intake and Output: 09/08/17 09/08/17 06:59 18:59 Intake Total 480 Output Total 1900 Balance -1420 - Medications Medications: Current Medications Aspirin (Aspirin Chewable) 81 mg PO DAILY [facility] Last Admin: 09/08/17 09:50 Dose: 81 mg Carvedilol (Coreg) 3.125 mg PO BID [facility] Last Admin: 09/08/17 09:51 Dose: 3.125 mg Cyanocobalamin (Vitamin B12 1000 Mcg/Ml Inj) 1,000 mcg IM MWF [facility] Last Admin: 09/08/17 09:53 Dose: 1,000 mcg Dorzolamide HCl (Trusopt) 0 ml OU BID [facility] Last Admin: 09/08/17 10:07 Dose: 1 drop Ferrous Gluconate (Fergon) 324 mg PO TID [facility] Last Admin: 03/30/18 14:14 Dose: 324 mg Guaifenesin (Mucinex La) 600 mg PO BID [facility] Last Admin: 09/08/17 09:51 Dose: 600 mg Heparin Sodium (Porcine) (Heparin) 5,000 units SC Q12 [facility] Azithromycin 500 mg/ Sodium (Chloride) 250 mls @ 250 mls/hr IVPB DAILY [facility] PRN Reason: Protocol Last Admin: 09/08/17 09:52 Dose: 250 mls/hr Cefepime HCl (Maxipime Iv 1 Gm Premix) 1 gm in 50 mls @ 100 mls/hr IVPB Q24H [facility] PRN Reason: Protocol Last Admin: 09/08/17 11:32 Dose: 100 mls/hr Insulin Aspart (Novolog) 0 unit SC ACHS [facility] PRN Reason: Protocol Last Admin: 09/08/17 11:29 Dose: 4 unit Insulin Glargine (Lantus) 10 unit SC HS [facility] Last Admin: 09/07/17 21:12 Dose: 10 u Ipratropium [place] (Atrovent) 0.5 mg IH RQ6 [facility] Last Admin: 09/08/17 13:28 Dose: 0.5 mg Latanoprost (Xalatan Opht) 0 ml OS HS [facility] Last Admin: 09/07/17 21:11 Dose: 2.5 ml Magnesium Oxide (Mag-Ox) 400 mg PO BID [facility] Stop: 09/18/17 15:01 Rosuvastatin Calcium (Crestor) 5 mg PO HS [facility] Last Admin: 09/07/17 21:12 Dose: 5 mg Saccharomyces Boulardii (Florastor) 250 mg PO BID [facility] Last Admin: 09/08/17 09:51 Dose: 250 mg Sodium Bicarbonate (Sodium Bicarbonate Tab) 650 mg PO BID [facility] Last Admin: 09/08/17 09:51 Dose: 650 mg Tamsulosin HCl (Flomax) 0.4 mg PO DAILY [facility] Last Admin: 09/08/17 09:50 Dose: 0.4 mg Timolol Maleate (Timoptic 0.25% Ophth Soln) 0 drop OU Q12H [facility] Last Admin: 09/08/17 05:02 Dose: 1 drop Vitamin B Complex/Vit C/Folic Acid (Nephro-Fe) 1 tab PO 0800 [facility] Last Admin: 09/08/17 08:19 Dose: 1 tab - Labs Labs: 09/08/17 12:31 09/08/17 12:31 PT 14.4 SECONDS (9.7-12.2) H 09/04/17 22:27 INR 1.3 09/04/17 22:27 APTT 22 SECONDS (21-34) 09/04/17 22:27
[2017-09-08] MEDS: Magnesium Oxide 400 mg Tab UD PO SCH ×2 (16:25→17:39)
--- NOTE | 2017-09-08 16:32 | PN ---
DATE: SUBJECTIVE: The patient denies any chest pain. No reported ventricular tachycardia. PHYSICAL EXAMINATION VITAL SIGNS: Blood pressure 158/78, heart rate 78, temperature 98.2, respirations 20. HEENT: [place] conjunctivae. CHEST: Diminished breath sounds at the bases. HEART: S1, S2 regular. EXTREMITIES: Trace pedal edema. LABORATORY DATA: BUN and creatinine 65 and 2.8 respectively which is slight improvement compared to yesterday. Today's blood sugar is 308, calcium is 8.3. Today's hemoglobin and hematocrit 9.1 and 28.6, white count 11.4, platelet count 302, 000. Blood cultures negative after 3 days. ASSESSMENT: 1. Status post non-ST elevation myocardial infarction. 2. Ischemic cardiomyopathy. 3. Obstructive uropathy. 4. Gram-negative urinary tract infection. 5. Anemia. RECOMMENDATIONS: Continue aspirin 81 mg once a day, Zithromax 500 mg intravenous daily, Coreg 3.125 mg once a day, Crestor 5 mg once a day, heparin 5000 units subcutaneously twice a day, IV Cefepime at 1 gm daily. So far, no family member has shown up yet. I would review the contrast echocardiographic study that was performed today and the patient will be transferred to telemetry. Kaleb Newman MD
--- NOTE | 2017-09-08 18:09 | NM ---
PROCEDURE: Whole Body Bone Scan HISTORY: marked elevated psa 216 suspicious for prostate ca COMPARISON: None available. TECHNIQUE: Following administration of 20.3 miCu of Tc MDP multiplanar whole body images were obtained. FINDINGS: Evidence for bony metastatic disease: Osseous metastatic disease primarily affecting lower thoracic and lumbar spine. Additional suspicious abnormalities left lesser trochanter, left ischium. Additional suspicious abnormalities in the sacrum. Cyst dishes fossae of increased uptake in bilateral ribs. Indeterminate findings in the cervical spine Degenerative uptake: None. Physiologic uptake: Normal physiologic activity in the kidneys. Other findings: None. 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 Additional abnormalities proximal left femur, cervical spine. Bilateral rib abnormalities suspicious for osseous metastatic disease
--- NOTE | 2017-09-08 19:50 | CP.PCM.PN ---
Subjective - Date & Time of Evaluation Date of Evaluation: 09/08/17 Time of Evaluation: 19:00 - Subjective Subjective: Feeling better Objective - Vital Signs/Intake and Output Vital Signs (last 24 hours): Temp Pulse Resp BP Pulse Ox 98.0 F 98 H 20 170/78 H 99 09/08/17 18:08 09/08/17 18:08 09/08/17 18:08 09/08/17 18:08 09/08/17 18:08 Intake and Output: 09/08/17 09/09/17 18:59 06:59 Intake Total 820 Output Total 1200 Balance -380 - Medications Medications: Current Medications Aspirin (Aspirin Chewable) 81 mg PO DAILY [facility] Last Admin: 09/08/17 09:50 Dose: 81 mg Carvedilol (Coreg) 3.125 mg PO BID [facility] Last Admin: 09/08/17 17:50 Dose: Not Given Cyanocobalamin (Vitamin B12 1000 Mcg/Ml Inj) 1,000 mcg IM MWF [facility] Last Admin: 09/08/17 09:53 Dose: 1,000 mcg Dorzolamide HCl (Trusopt) 0 ml OU BID [facility] Last Admin: 09/08/17 17:11 Dose: 1 drop Ferrous Gluconate (Fergon) 324 mg PO TID [facility] Last Admin: 09/05/17 14:14 Dose: 324 mg Guaifenesin (Mucinex La) 600 mg PO BID [facility] Last Admin: 09/08/17 17:53 Dose: Not Given Heparin Sodium (Porcine) (Heparin) 5,000 units SC Q12 [facility] Azithromycin 500 mg/ Sodium (Chloride) 250 mls @ 250 mls/hr IVPB DAILY [facility] PRN Reason: Protocol Last Admin: 09/08/17 09:52 Dose: 250 mls/hr Cefepime HCl (Maxipime Iv 1 Gm Premix) 1 gm in 50 mls @ 100 mls/hr IVPB Q24H [facility] PRN Reason: Protocol Last Admin: 09/08/17 11:32 Dose: 100 mls/hr Insulin Aspart (Novolog) 0 unit SC ACHS [facility] PRN Reason: Protocol Last Admin: 09/08/17 17:06 Dose: 5 unit Insulin Glargine (Lantus) 10 unit SC HS [facility] Last Admin: 09/07/17 21:12 Dose: 10 u Ipratropium [place] (Atrovent) 0.5 mg IH RQ6 [facility] Last Admin: 09/08/17 13:28 Dose: 0.5 mg Latanoprost (Xalatan Opht) 0 ml OS HS [facility] Last Admin: 09/07/17 21:11 Dose: 2.5 ml Magnesium Oxide (Mag-Ox) 400 mg PO BID [facility] Stop: 09/18/17 15:01 Last Admin: 09/08/17 17:39 Dose: 400 mg Rosuvastatin Calcium (Crestor) 5 mg PO HS [facility] Last Admin: 09/07/17 21:12 Dose: 5 mg Saccharomyces Boulardii (Florastor) 250 mg PO BID [facility] Last Admin: 09/08/17 17:38 Dose: 250 mg Sodium Bicarbonate (Sodium Bicarbonate Tab) 650 mg PO BID [facility] Last Admin: 09/08/17 17:39 Dose: 650 mg Tamsulosin HCl (Flomax) 0.4 mg PO DAILY [facility] Last Admin: 09/08/17 09:50 Dose: 0.4 mg Timolol Maleate (Timoptic 0.25% Oph Soln) 0 drop OU Q12H [facility] Last Admin: 09/08/17 17:53 Dose: Not Given Vitamin B Complex/Vit C/Folic Acid (Nephro-Fe) 1 tab PO 0800 [facility] Last Admin: 09/08/17 08:19 Dose: 1 tab - Labs Labs: 09/08/17 12:31 09/08/17 12:31 PT 14.4 SECONDS (9.7-12.2) H 09/04/17 22:27 INR 1.3 09/04/17 22:27 APTT 22 SECONDS (21-34) 09/04/17 22:27 - Head Exam Head Exam: ATRAUMATIC - Eye Exam Eye Exam: Normal appearance - ENT Exam ENT Exam: Mucous Membranes Dry - Respiratory Exam Respiratory Exam: NORMAL BREATHING PATTERN - Cardiovascular Exam Cardiovascular Exam: +S1, +S2 - GI/Abdominal Exam GI & Abdominal Exam: Normal Bowel Sounds Assessment and Plan (1) Anemia Assessment & Plan: work up consistent with chronic disease and renal disease ? bone metastasis transfusion support PRN Status: Acute (2) Elevated PSA Assessment & Plan: with bone lesions concerning for metastatic prostate cancer will need biopsy when more stable Status: Acute
[2017-09-08] MEDS: (Lantus) Insulin Glargine, Recombinant SC SCH (21:21)
[2017-09-08] MEDS: Latanoprost 2.5 ml Opht Soln OS SCH (21:22)
[2017-09-09] MEDS: Ipratropium 0.02% Inhal Soln (0.5 mg/2.5 ml) UD IH SCH ×4 (01:14→19:33)
[2017-09-09] MEDS: Timolol 0.25% Ophth SOLN OU SCH ×2 (06:06→17:46)
[2017-09-09 07:34] LABS: BASO % 0.3 % (0.0-2.0); EOS # 0.3 K/uL (0.0-0.7); EOS % 2.2 % (0.0-4.0); HEMOGLOBIN 8.5 g/dL (12.0-18.0); LYMPH # 2.1 K/uL (1.0-4.3); LYMPH % 15.7 % (20.0-40.0); MEAN CELL VOLUME 87.6 fL (80.0-94.0); MEAN CORPUSCULAR HEMOGLOBIN 29.8 pg (27.0-31.0); MEAN PLATELET VOLUME 7.7 fL (7.2-11.7); MONO # 1.1 K/uL (0.0-0.8); NEUT # 9.8 K/uL (1.8-7.0); NEUT % 73.8 % (50.0-75.0); RBC 2.87 Mil/uL (4.40-5.90); RED CELL DISTRIBUTION WIDTH 14.7 % (11.5-14.5); WHITE BLOOD COUNT 13.3 K/uL (4.8-10.8)
[2017-09-09 07:51] LABS: ALB/GLOB RATIO 0.8 (1.0-2.1); CALCIUM 8.3 mg/dl (8.6-10.4)
[2017-09-09] MEDS: Multivitamin Vitamin B Complex (Nephro-Vite) Tab PO SCH (08:38)
[2017-09-09] MEDS: (Novolog) Insulin Aspart, Recombinant 100 u/ml 10 ml vial SC SCH ×4 (08:38→22:21)
[2017-09-09] MEDS: guaiFENesin 600 mg ER Tab PO SCH ×2 (10:12→17:44)
[2017-09-09] MEDS: Saccharomyces Boulardi 250 mg Cap PO SCH ×2 (10:12→17:44)
[2017-09-09] MEDS: Dorzolamide 2% Opht Sol 10ml OU SCH ×2 (10:12→17:46)
[2017-09-09] MEDS: Magnesium Oxide 400 mg Tab UD PO SCH ×2 (10:12→17:44)
[2017-09-09] MEDS: Azithromycin 500 MG in Sodium Chloride 0.9% 250 ML IVPB SCH (10:13)
[2017-09-09] MEDS ORDERED: Potassium Chloride 20 mEq ER Tab PO ONE (10:42)
[2017-09-09] MEDS ORDERED: Azithromycin 500 MG in Sodium Chloride 0.9% 250 ML IVPB SCH (11:14)
--- NOTE | 2017-09-09 11:21 | CP.PCM.PN ---
Subjective - Date & Time of Evaluation Date of Evaluation: 09/09/17 Time of Evaluation: 10:00 - Subjective Subjective: improving slowly iv rx in progress Objective - Vital Signs/Intake and Output Vital Signs (last 24 hours): Temp Pulse Resp BP Pulse Ox 97.6 F 82 18 136/66 100 09/09/17 07:20 09/09/17 07:20 09/09/17 07:20 09/09/17 07:20 09/09/17 07:20 Intake and Output: 09/09/17 09/09/17 06:59 18:59 Intake Total 520 Output Total 2100 Balance -1580 - Medications Medications: Current Medications Aspirin (Aspirin Chewable) 81 mg PO DAILY [facility] Last Admin: 09/09/17 10:12 Dose: 81 mg Carvedilol (Coreg) 3.125 mg PO BID [facility] Last Admin: 09/09/17 10:13 Dose: 3.125 mg Cyanocobalamin (Vitamin B12 1000 Mcg/Ml Inj) 1,000 mcg IM MWF [facility] Last Admin: 09/08/17 09:53 Dose: 1,000 mcg Dorzolamide HCl (Trusopt) 0 ml OU BID [facility] Last Admin: 09/09/17 10:12 Dose: 1 drop Ferrous Gluconate (Fergon) 324 mg PO TID [facility] Last Admin: 09/09/17 10:12 Dose: 324 mg Guaifenesin (Mucinex La) 600 mg PO BID [facility] Last Admin: 09/09/17 10:12 Dose: 600 mg Heparin Sodium (Porcine) (Heparin) 5,000 units SC Q12 [facility] Last Admin: 09/09/17 10:12 Dose: 5,000 units Cefepime HCl (Maxipime Iv 1 Gm Premix) 1 gm in 50 mls @ 100 mls/hr IVPB Q24H [facility] PRN Reason: Protocol Last Admin: 09/08/17 11:32 Dose: 100 mls/hr Azithromycin 500 mg/ Sodium (Chloride) 250 mls @ 166.667 mls/hr IVPB DAILY [facility] PRN Reason: Protocol Stop: 09/09/17 12:43 Insulin Aspart (Novolog) 0 unit SC ACHS [facility] PRN Reason: Protocol Last Admin: 09/09/17 08:38 Dose: 2 unit Insulin Glargine (Lantus) 10 unit SC HS [facility] Last Admin: 09/08/17 21:21 Dose: 10 u Ipratropium [place] (Atrovent) 0.5 mg IH RQ6 [facility] Last Admin: 09/09/17 07:59 Dose: 0.5 mg Latanoprost (Xalatan Opht) 0 ml OS HS [facility] Last Admin: 09/08/17 21:22 Dose: 2.5 ml Magnesium Oxide (Mag-Ox) 400 mg PO BID [facility] Stop: 09/18/17 15:01 Last Admin: 09/09/17 10:12 Dose: 400 mg Potassium Chloride (K-Dur 20 Meq Er Tab) 20 meq PO BID [facility] Stop: 09/09/17 18:01 Rosuvastatin Calcium (Crestor) 5 mg PO HS [facility] Last Admin: 09/08/17 21:21 Dose: 5 mg Saccharomyces Boulardii (Florastor) 250 mg PO BID [facility] Last Admin: 09/09/17 10:12 Dose: 250 mg Sodium Bicarbonate (Sodium Bicarbonate Tab) 650 mg PO BID [facility] Last Admin: 09/09/17 10:12 Dose: 650 mg Tamsulosin HCl (Flomax) 0.4 mg PO DAILY [facility] Last Admin: 09/09/17 10:12 Dose: 0.4 mg Timolol Maleate (Timoptic 0.25% Ophth Soln) 0 drop OU Q12H [facility] Last Admin: 09/09/17 06:06 Dose: Not Given Vitamin B Complex/Vit C/Folic Acid (Nephro-Fe) 1 tab PO 0800 [facility] Last Admin: 09/09/17 08:38 Dose: 1 tab - Labs Labs: 09/09/17 07:18 09/09/17 07:18 PT 14.4 SECONDS (9.7-12.2) H 09/04/17 22:27 INR 1.3 09/04/17 22:27 APTT 22 SECONDS (21-34) 09/04/17 22:27 - Constitutional Appears: Non-toxic, Chronically Ill - Head Exam Head Exam: NORMOCEPHALIC - Eye Exam Eye Exam: absent: Scleral icterus - ENT Exam ENT Exam: Mucous Membranes Dry - Neck Exam Neck Exam: absent: Lymphadenopathy - Respiratory Exam Respiratory Exam: Decreased Breath Sounds - Cardiovascular Exam Cardiovascular Exam: REGULAR RHYTHM - GI/Abdominal Exam GI & Abdominal Exam: Distended, Soft Assessment and Plan (1) NSTEMI (non-ST elevated myocardial infarction) Status: Acute (2) Obstructive uropathy Status: Acute (3) Diabetes mellitus Status: Acute (4) UTI (urinary tract infection) Status: Acute (5) SHANNAN (acute kidney injury) Status: Acute
[2017-09-09] MEDS: Potassium Chloride 20 mEq ER Tab PO SCH ×3 (11:24→17:44)
--- NOTE | 2017-09-09 11:45 | CP.PCM.PN ---
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 PT VERBALIZES THAT MR. LANTIGUA HAS THE AUTHORITY PER HIM TO SIGN ANY PAPERWORK AND MAKE DECISIONS FOR HIM. PT HAS 2 ESTRANGED DAUGHTERS AND ( LIVING) WHO MR. LANTIGUA ALSO CARES FOR. AT THIS TIME, CARD CATH ON HOLD PER [facility] DUE TO HIM NOT BEING ABLE TO REACH HEALTHCARE REP OR NEXT OF KIN. DISCUSSED WITH Go ARAYA PLAN FOR IV ABX---LAST DOSE OF ZITHRO TO BE GIVEN TODAY,THEN PT TO CONTINUE CEFEPIME 1 GM IV DAILY X14 DAYS. PENDING PT EVAL RECOMMENDATIONS; MR. LANTIGUA IS OPEN TO [facility] FOR PHY THER AND IV ABX. HE WILL DISCUSSED THIS WITH PT'S , FLORECITA. Objective - Vital Signs/Intake and Output Vital Signs (last 24 hours): Temp Pulse Resp BP Pulse Ox 97.6 F 82 18 136/66 100 09/09/17 07:20 09/09/17 07:20 09/09/17 07:20 09/09/17 07:20 09/09/17 07:20 Intake and Output: 09/09/17 09/09/17 06:59 18:59 Intake Total 520 Output Total 2100 Balance -1580 - Medications Medications: Current Medications Aspirin (Aspirin Chewable) 81 mg PO DAILY [facility] Last Admin: 09/09/17 10:12 Dose: 81 mg Carvedilol (Coreg) 3.125 mg PO BID [facility] Last Admin: 09/09/17 10:13 Dose: 3.125 mg Cyanocobalamin (Vitamin B12 1000 Mcg/Ml Inj) 1,000 mcg IM MWF [facility] Last Admin: 09/08/17 09:53 Dose: 1,000 mcg Dorzolamide HCl (Trusopt) 0 ml OU BID [facility] Last Admin: 09/09/17 10:12 Dose: 1 drop Ferrous Gluconate (Fergon) 324 mg PO TID [facility] Last Admin: 09/09/17 10:12 Dose: 324 mg Guaifenesin (Mucinex La) 600 mg PO BID [facility] Last Admin: 09/09/17 10:12 Dose: 600 mg Heparin Sodium (Porcine) (Heparin) 5,000 units SC Q12 [facility] Last Admin: 09/09/17 10:12 Dose: 5,000 units Cefepime HCl (Maxipime Iv 1 Gm Premix) 1 gm in 50 mls @ 100 mls/hr IVPB Q24H [facility] PRN Reason: Protocol Last Admin: 09/08/17 11:32 Dose: 100 mls/hr Azithromycin 500 mg/ Sodium (Chloride) 250 mls @ 166.667 mls/hr IVPB DAILY [facility] PRN Reason: Protocol Stop: 09/09/17 12:43 Last Admin: 09/09/17 11:29 Dose: Not Given Insulin Aspart (Novolog) 0 unit SC ACHS [facility] PRN Reason: Protocol Last Admin: 09/09/17 11:31 Dose: 5 unit Insulin Glargine (Lantus) 10 unit SC HS [facility] Last Admin: 09/08/17 21:21 Dose: 10 u Ipratropium [place] (Atrovent) 0.5 mg IH RQ6 [facility] Last Admin: 09/09/17 07:59 Dose: 0.5 mg Latanoprost (Xalatan Opht) 0 ml OS HS [facility] Last Admin: 09/08/17 21:22 Dose: 2.5 ml Magnesium Oxide (Mag-Ox) 400 mg PO BID [facility] Stop: 09/18/17 15:01 Last Admin: 09/09/17 10:12 Dose: 400 mg Potassium Chloride (K-Dur 20 Meq Er Tab) 20 meq PO BID [facility] Stop: 09/09/17 18:01 Last Admin: 09/09/17 11:25 Dose: Not Given Rosuvastatin Calcium (Crestor) 5 mg PO HS [facility] Last Admin: 09/08/17 21:21 Dose: 5 mg Saccharomyces Boulardii (Florastor) 250 mg PO BID [facility] Last Admin: 09/09/17 10:12 Dose: 250 mg Sodium Bicarbonate (Sodium Bicarbonate Tab) 650 mg PO BID [facility] Last Admin: 09/09/17 10:12 Dose: 650 mg Tamsulosin HCl (Flomax) 0.4 mg PO DAILY [facility] Last Admin: 09/09/17 10:12 Dose: 0.4 mg Timolol Maleate (Timoptic 0.25% Ophth Soln) 0 drop OU Q12H [facility] Last Admin: 09/09/17 06:06 Dose: Not Given Vitamin B Complex/Vit C/Folic Acid (Nephro-Fe) 1 tab PO 0800 [facility] Last Admin: 09/09/17 08:38 Dose: 1 tab - Labs Labs: 09/09/17 07:18 09/09/17 07:18 PT 14.4 SECONDS (9.7-12.2) H 09/04/17 22:27 INR 1.3 09/04/17 22:27 APTT 22 SECONDS (21-34) 09/04/17 22:27
--- NOTE | 2017-09-09 12:19 | CARD ---
APPROVED REPORT EXAM: LIMITED Two-dimensional echocardiogram with contrast. Other Information Quality : GoodRhythm : INDICATION Thrombus Echo Enhancing Agent Indication: Rule out thrombus Agent/Amount Used: Definity Surgery/Intervention Bioprosthetic LEFT VENTRICLE The Left Ventricle is mildly dilated. There is normal left ventricular wall thickness. The left ventricular function is normal. The left ventricular ejection fraction is within the normal range. There is normal LV segmental wall motion. CONTRAST STUDY WITH DEFINITY DONE TO EVALUATE LV THROMBUS, NO LV THROMBUS SEEN. There is no ventricular septal defect visualized. There is no left ventricular aneurysm. There is no mass noted in the left ventricle. RIGHT VENTRICLE The right ventricle is normal size. There is normal right ventricular wall thickness. The right ventricular systolic function is normal. ATRIA The left atrium is mildly dilated. The right atrium size is normal. AORTIC VALVE The aortic valve is calcified and displays decreased opening. No aortic regurgitation is present. There is no aortic valvular vegetation. MITRAL VALVE Mitral annular calcification is moderate to severe. There is no mitral valve stenosis. There is no mitral valve regurgitation noted. TRICUSPID VALVE The tricuspid valve is normal in structure. There is no tricuspid valve regurgitation noted. GREAT VESSELS The aortic root displays mild to moderate sclerocalcific changes of the aortic root. The ascending aorta is normal in size. PERICARDIAL EFFUSION There is no pericardial effusion. <Conclusion> The Left Ventricle is mildly dilated. CONTRAST STUDY WITH DEFINITY DONE TO EVALUATE LV THROMBUS, NO LV THROMBUS SEEN. The left atrium is mildly dilated. The aortic valve is calcified and displays decreased opening. Mitral annular calcification is moderate to severe.
[2017-09-09] MEDS: Cefepime IV 1 gm in Dextrose 1 GM/50 ML BAG IVPB SCH (13:16)
--- NOTE | 2017-09-09 16:35 | RAD ---
HISTORY: verify right PICC COMPARISON: 09/04/2017 at 1330 hour FINDINGS: LUNGS: The prior bibasilar coalescent patchy infiltrates show partial clearance an improved aeration. Primarily persistent residual opacity at the right lung base persist. Continued follow-up to complete resolution recommended. Consider follow-up chest x-ray in follow-up CT chest exam at that time. PLEURA: The prior right pleural effusion is probably slightly smaller now No pneumothorax apparent. CARDIOVASCULAR: Cardiomegaly and tortuous unfolded thoracic aorta-both similar in appearance. Pulmonary vasculature probably minimally increased albeit less than before OSSEOUS STRUCTURES: No significant abnormalities. VISUALIZED UPPER ABDOMEN: Normal. OTHER FINDINGS: Interval right PICC line insertion tip cavoatrial junction IMPRESSION: Interval insertion right PICC line tip cavoatrial junction. No pneumothorax appreciated Partial clearance of the bibasilar patchy coalescent infiltrates small minimal residual patchy infiltrate at right lung base persisting follow up to complete resolution recommended. Probable small or minimal right pleural effusion still persisting
--- NOTE | 2017-09-09 16:40 | CP.PCM.PN ---
Subjective - Date & Time of Evaluation Date of Evaluation: 09/09/17 Time of Evaluation: 16:40 - Subjective Subjective: Nephrology Consultation Note: Assessment: stable Acute Kidney Injury (N17.9) likely due to Obstructive uropathy as evident by bilateral hydronephrosis: improving Hypomagnesemia Retroperitoneal adenopathy, Possible metastatic prostate malignancy Severe anemia, UTI Acute [place] Hyperkalemia and metabolic acidosis Pneumonia CHF hx of DM, HTN Plan No acute need for renal replacement therapy at this time. Maintain hemodynamics stable, avoid hypotension, Patient not on ACEI/ARB due to SHANNA[place] Monitor Input/Output, daily weights and renal function with basic metabolic panel continue with iron supplements, sodium bicarbonate 650 mg 2 times a day and Flomax 0.4 mg once a day appreciate and Heme evaluation Anemia management as per heme/onc supplemented mag, K Dose meds/antibiotics for reduced GFR. Avoid fleets enema/magnesium based laxatives. Avoid nephrotoxins/NSAIDs/ iodinated contrast (unless needed emergently) Glycemic control Further work up/management as per primary team Thanks for allowing me to participate in care of your patient. Will follow patient with you. Please call if any Qs. d/w team Dr Kale [place] Office: [phone] HPI: Pt is a 87 male with hx of diabetes Mellitus ( years), hypertension (years) , Chronic obstructive uropathy with extensive retroperitoneal lymphadenopathy and prostatic enlargement, possible metastasis to spine as seen on CT abdomen 2017, presented with complaints of Altered mental status at home and he was found to be covered in feces and urin. Patient found to have acute kidney injury acute [place] hyperkalemia pneumonia and severe anemia Denies OTC/herbal meds or NSAIDs No recent iodinated contrast exposure. No obvious episodes of low BP Except lowest blood pressure 98/55 ROS: Cardiovascular: No chest pain. Pulmonary: No shortness of breath Gastrointestinal: denies abdominal pain No nausea. No vomiting. Genitourinary: has garcia All other negative except as mentioned in HPI. UOP and renal fxn much better s/ p garcia Physical Examination: General Appearance: Comfortable, in no acute respiratory distress, co-operative . Vitals reviewed and noted as below Head; Atraumatic, normocephalic ENT: no ulcers no thrush. Tongue is midline. Oropharynx: no rash or ulcers. EYES: Pupils are equal, round and reactive to light accommodation. Eye muscles and extraocular movement intact. Sclera is anicteric. Neck; supple no lymphadenopathy, no thyromegaly or bruit Lungs: Normal respiratory rate/effort. Breath sounds bilateral Decreased at bases Heart: Normal rate. s1s2 normal. No rub or gallop. Extremities: no edema. No varicose veins Neurological: Patient is alert, awake and No focal deficit. Strength bilateral appropriate and equal Skin: Warm and dry. Normal turgor. No rash. Palpitation: Normal elasticity for age Abdomen: Abdomen is soft. Bowel sounds +. There is no abdominal tenderness, no guarding/rigidity no organomegaly Psych: Limited insight insight and Flat affect/mood MSK: no joint tenderness or swelling. Digits and nails normal, no deformity : kidney not palpable has garcia Labs/imaging reviewed. Past medical history, past surgical history, family history, social history, allergy reviewed and noted as below Family hx: no hx of CKD. Rest non-contributory Renal sonogram severe bilateral hydronephrosis BNP 70,000 Urine protein creatinine ratio 2 gram Iron saturation 7% ferritin 198 Objective - Vital Signs/Intake and Output Vital Signs (last 24 hours): Temp Pulse Resp BP Pulse Ox 97.5 F L 77 18 130/59 L 100 09/09/17 16:00 09/09/17 16:00 09/09/17 16:00 09/09/17 16:00 09/09/17 16:00 Intake and Output: 09/09/17 09/09/17 06:59 18:59 Intake Total 520 500 Output Total 2100 1400 Balance -1580 -900 - Medications Medications: Current Medications Aspirin (Aspirin Chewable) 81 mg PO DAILY [facility] Last Admin: 09/09/17 10:12 Dose: 81 mg Carvedilol (Coreg) 3.125 mg PO BID [facility] Last Admin: 09/09/17 10:13 Dose: 3.125 mg Cyanocobalamin (Vitamin B12 1000 Mcg/Ml Inj) 1,000 mcg IM MWF [facility] Last Admin: 09/08/17 09:53 Dose: 1,000 mcg Dorzolamide HCl (Trusopt) 0 ml OU BID [facility] Last Admin: 09/09/17 10:12 Dose: 1 drop Ferrous Gluconate (Fergon) 324 mg PO TID [facility] Last Admin: 09/09/17 13:15 Dose: 324 mg Guaifenesin (Mucinex La) 600 mg PO BID [facility] Last Admin: 09/09/17 10:12 Dose: 600 mg Heparin Sodium (Porcine) (Heparin) 5,000 units SC Q12 [facility] Last Admin: 09/09/17 10:12 Dose: 5,000 units Cefepime HCl (Maxipime Iv 1 Gm Premix) 1 gm in 50 mls @ 100 mls/hr IVPB Q24H [facility] PRN Reason: Protocol Last Admin: 09/09/17 13:16 Dose: 100 mls/hr Insulin Aspart (Novolog) 0 unit SC ACHS [facility] PRN Reason: Protocol Last Admin: 09/09/17 16:34 Dose: 5 unit Insulin Glargine (Lantus) 10 unit SC HS [facility] Last Admin: 09/08/17 21:21 Dose: 10 u Ipratropium [place] (Atrovent) 0.5 mg IH RQ6 [facility] Last Admin: 09/09/17 13:56 Dose: 0.5 mg Latanoprost (Xalatan Opht) 0 ml OS HS [facility] Last Admin: 09/08/17 21:22 Dose: 2.5 ml Magnesium Oxide (Mag-Ox) 400 mg PO BID [facility] Stop: 09/18/17 15:01 Last Admin: 09/09/17 10:12 Dose: 400 mg Potassium Chloride (K-Dur 20 Meq Er Tab) 20 meq PO BID [facility] Stop: 09/09/17 18:01 Last Admin: 09/09/17 11:25 Dose: Not Given Rosuvastatin Calcium (Crestor) 5 mg PO HS [facility] Last Admin: 09/08/17 21:21 Dose: 5 mg Saccharomyces Boulardii (Florastor) 250 mg PO BID [facility] Last Admin: 09/09/17 10:12 Dose: 250 mg Sodium Bicarbonate (Sodium Bicarbonate Tab) 650 mg PO BID [facility] Last Admin: 09/09/17 10:12 Dose: 650 mg Tamsulosin HCl (Flomax) 0.4 mg PO DAILY [facility] Last Admin: 09/09/17 10:12 Dose: 0.4 mg Timolol Maleate (Timoptic 0.25% Ophth Soln) 0 drop OU Q12H [facility] Last Admin: 09/09/17 06:06 Dose: Not Given Vitamin B Complex/Vit C/Folic Acid (Nephro-Fe) 1 tab PO 0800 [facility] Last Admin: 09/09/17 08:38 Dose: 1 tab - Labs Labs: 09/09/17 07:18 09/09/17 07:18 PT 14.4 SECONDS (9.7-12.2) H 09/04/17 22:27 INR 1.3 09/04/17 22:27 APTT 22 SECONDS (21-34) 09/04/17 22:27
--- NOTE | 2017-09-09 18:35 | CP.PCM.PN ---
Subjective - Date & Time of Evaluation Date of Evaluation: 09/09/17 Time of Evaluation: 15:15 - Subjective Subjective: No complaints. Objective - Vital Signs/Intake and Output Vital Signs (last 24 hours): Temp Pulse Resp BP Pulse Ox 97.5 F L 90 18 130/59 L 100 09/09/17 16:00 09/09/17 18:24 09/09/17 16:00 09/09/17 16:00 09/09/17 16:00 Intake and Output: 09/09/17 09/09/17 06:59 18:59 Intake Total 520 900 Output Total 2100 1400 Balance -1580 -500 - Medications Medications: Current Medications Aspirin (Aspirin Chewable) 81 mg PO DAILY [facility] Last Admin: 09/09/17 10:12 Dose: 81 mg Carvedilol (Coreg) 3.125 mg PO BID [facility] Last Admin: 09/09/17 17:43 Dose: 3.125 mg Cyanocobalamin (Vitamin B12 1000 Mcg/Ml Inj) 1,000 mcg IM MWF [facility] Last Admin: 09/08/17 09:53 Dose: 1,000 mcg Dorzolamide HCl (Trusopt) 0 ml OU BID [facility] Last Admin: 09/09/17 17:46 Dose: 1 drop Ferrous Gluconate (Fergon) 324 mg PO TID [facility] Last Admin: 09/09/17 17:43 Dose: 324 mg Guaifenesin (Mucinex La) 600 mg PO BID [facility] Last Admin: 09/09/17 17:44 Dose: 600 mg Heparin Sodium (Porcine) (Heparin) 5,000 units SC Q12 [facility] Last Admin: 09/09/17 10:12 Dose: 5,000 units Cefepime HCl (Maxipime Iv 1 Gm Premix) 1 gm in 50 mls @ 100 mls/hr IVPB Q24H [facility] PRN Reason: Protocol Last Admin: 09/09/17 13:16 Dose: 100 mls/hr Insulin Aspart (Novolog) 0 unit SC ACHS [facility] PRN Reason: Protocol Last Admin: 09/09/17 16:34 Dose: 5 unit Insulin Glargine (Lantus) 10 unit SC HS [facility] Last Admin: 09/08/17 21:21 Dose: 10 u Ipratropium [place] (Atrovent) 0.5 mg IH RQ6 [facility] Last Admin: 09/09/17 13:56 Dose: 0.5 mg Latanoprost (Xalatan Opht) 0 ml OS HS [facility] Last Admin: 09/08/17 21:22 Dose: 2.5 ml Magnesium Oxide (Mag-Ox) 400 mg PO BID [facility] Stop: 09/18/17 15:01 Last Admin: 09/09/17 17:44 Dose: 400 mg Rosuvastatin Calcium (Crestor) 5 mg PO HS [facility] Last Admin: 09/08/17 21:21 Dose: 5 mg Saccharomyces Boulardii (Florastor) 250 mg PO BID [facility] Last Admin: 09/09/17 17:44 Dose: 250 mg Sodium Bicarbonate (Sodium Bicarbonate Tab) 650 mg PO BID [facility] Last Admin: 09/09/17 17:45 Dose: 650 mg Tamsulosin HCl (Flomax) 0.4 mg PO DAILY [facility] Last Admin: 09/09/17 10:12 Dose: 0.4 mg Timolol Maleate (Timoptic 0.25% Ophth Soln) 0 drop OU Q12H [facility] Last Admin: 09/09/17 17:46 Dose: 1 drop Vitamin B Complex/Vit C/Folic Acid (Nephro-Fe) 1 tab PO 0800 [facility] Last Admin: 09/09/17 08:38 Dose: 1 tab - Labs Labs: 09/09/17 07:18 09/09/17 07:18 PT 14.4 SECONDS (9.7-12.2) H 09/04/17 22:27 INR 1.3 09/04/17 22:27 APTT 22 SECONDS (21-34) 09/04/17 22:27 - Head Exam Head Exam: ATRAUMATIC - Eye Exam Eye Exam: Normal appearance - ENT Exam ENT Exam: Mucous Membranes Dry - Respiratory Exam Respiratory Exam: NORMAL BREATHING PATTERN - Cardiovascular Exam Cardiovascular Exam: +S1, +S2 - GI/Abdominal Exam GI & Abdominal Exam: Normal Bowel Sounds Assessment and Plan (1) Anemia Assessment & Plan: work up consistent with chronic disease and renal disease ? bone metastasis transfusion support PRN Status: Acute (2) Elevated PSA Assessment & Plan: with bone lesions concerning for metastatic prostate cancer will need biopsy when more stable Status: Acute
--- NOTE | 2017-09-09 20:09 | PN ---
DATE: SUBJECTIVE: The patient denies chest pain. PHYSICAL EXAMINATION VITAL SIGNS: Blood pressure 136/66, heart rate 82, temperature 97.6, respirations 18. HEENT: [employer] conjunctivae. CHEST: Minimal rhonchi. HEART: S1, S2 regular. EXTREMITIES: No edema. LABORATORY DATA: SMA-7, sodium 139, potassium 3.4, chloride 105, CO2 19, glucose 185, BUN 63, creatinine 2.6. Today's hemoglobin and hematocrit 8.5 and 25.1, white count 15.2, platelet count 303,000. Bone scan revealed osseus metastatic disease, primarily affecting thoracolumbar spine, pelvis. Additional abnormality, proximal femur, cervical spine. Bilateral rib abnormalities, suspicious for osseus metastatic disease. ASSESSMENT: 1. Obstructive uropathy and improving renal insufficiency. 2. Non-ST elevation myocardial infarction. 3. Consider prostatic cancer with bony metastasis. RECOMMENDATIONS: Continue aspirin 81 mg once a day, Coreg 3.125 mg twice a day, subcutaneous heparin 5000 units every 12 hours, K-Dur 20 mEq once a day. The patient is not a suitable candidate for invasive cardiac workup at this point. In the meantime, so far no family member is available for discussing the case. Kaleb Newman MD
[2017-09-09] MEDS: Latanoprost 2.5 ml Opht Soln OS SCH (21:41)
--- NOTE | 2017-09-09 21:52 | CP.PCM.PN ---
Subjective - Date & Time of Evaluation Date of Evaluation: 09/09/17 Time of Evaluation: 11:20 - Subjective Subjective: clinically same Objective - Vital Signs/Intake and Output Vital Signs (last 24 hours): Temp Pulse Resp BP Pulse Ox 98.4 F 81 18 116/55 L 100 09/09/17 20:42 09/09/17 20:42 09/09/17 20:42 09/09/17 20:42 09/09/17 20:42 Intake and Output: 09/09/17 09/10/17 18:59 06:59 Intake Total 900 Output Total 1400 900 Balance -500 -900 - Medications Medications: Current Medications Aspirin (Aspirin Chewable) 81 mg PO DAILY [facility] Last Admin: 09/09/17 10:12 Dose: 81 mg Carvedilol (Coreg) 3.125 mg PO BID [facility] Last Admin: 09/09/17 17:43 Dose: 3.125 mg Cyanocobalamin (Vitamin B12 1000 Mcg/Ml Inj) 1,000 mcg IM MWF [facility] Last Admin: 09/08/17 09:53 Dose: 1,000 mcg Dorzolamide HCl (Trusopt) 0 ml OU BID [facility] Last Admin: 09/09/17 17:46 Dose: 1 drop Ferrous Gluconate (Fergon) 324 mg PO TID [facility] Last Admin: 09/09/17 17:43 Dose: 324 mg Guaifenesin (Mucinex La) 600 mg PO BID [facility] Last Admin: 09/09/17 17:44 Dose: 600 mg Heparin Sodium (Porcine) (Heparin) 5,000 units SC Q12 [facility] Last Admin: 09/09/17 21:40 Dose: 5,000 units Cefepime HCl (Maxipime Iv 1 Gm Premix) 1 gm in 50 mls @ 100 mls/hr IVPB Q24H [facility] PRN Reason: Protocol Last Admin: 09/09/17 13:16 Dose: 100 mls/hr Insulin Aspart (Novolog) 0 unit SC ACHS [facility] PRN Reason: Protocol Last Admin: 09/09/17 16:34 Dose: 5 unit Insulin Glargine (Lantus) 10 unit SC HS [facility] Last Admin: 09/08/17 21:21 Dose: 10 u Ipratropium [place] (Atrovent) 0.5 mg IH RQ6 [facility] Last Admin: 09/09/17 19:33 Dose: 0.5 mg Latanoprost (Xalatan Opht) 0 ml OS HS [facility] Last Admin: 09/09/17 21:41 Dose: 2.5 ml Magnesium Oxide (Mag-Ox) 400 mg PO BID [facility] Stop: 09/18/17 15:01 Last Admin: 09/09/17 17:44 Dose: 400 mg Rosuvastatin Calcium (Crestor) 5 mg PO HS [facility] Last Admin: 09/09/17 21:40 Dose: 5 mg Saccharomyces Boulardii (Florastor) 250 mg PO BID [facility] Last Admin: 09/09/17 17:44 Dose: 250 mg Sodium Bicarbonate (Sodium Bicarbonate Tab) 650 mg PO BID [facility] Last Admin: 09/09/17 17:45 Dose: 650 mg Tamsulosin HCl (Flomax) 0.4 mg PO DAILY [facility] Last Admin: 09/09/17 10:12 Dose: 0.4 mg Timolol Maleate (Timoptic 0.25% Ophth Soln) 0 drop OU Q12H [facility] Last Admin: 09/09/17 17:46 Dose: 1 drop Vitamin B Complex/Vit C/Folic Acid (Nephro-Fe) 1 tab PO 0800 [facility] Last Admin: 09/09/17 08:38 Dose: 1 tab - Labs Labs: 09/09/17 07:18 09/09/17 07:18 PT 14.4 SECONDS (9.7-12.2) H 09/04/17 22:27 INR 1.3 09/04/17 22:27 APTT 22 SECONDS (21-34) 09/04/17 22:27 - Constitutional Appears: Well - Head Exam Head Exam: ATRAUMATIC, NORMAL INSPECTION, NORMOCEPHALIC - Eye Exam Eye Exam: EOMI, Normal appearance, PERRL Pupil Exam: NORMAL ACCOMODATION, PERRL - ENT Exam ENT Exam: Mucous Membranes Moist, Normal Exam - Neck Exam Neck Exam: Full ROM, Normal Inspection. absent: Lymphadenopathy - Respiratory Exam Respiratory Exam: Decreased Breath Sounds - Cardiovascular Exam Cardiovascular Exam: REGULAR RHYTHM, +S1, +S2 - GI/Abdominal Exam GI & Abdominal Exam: Soft, Diminished Bowel Sounds - Rectal Exam Rectal Exam: Deferred
[2017-09-09] MEDS: (Lantus) Insulin Glargine, Recombinant SC SCH (22:14)
[2017-09-09] MEDS ORDERED: Potassium Chloride 20 mEq ER Tab PO STA (23:27)
[2017-09-10] MEDS: Ipratropium 0.02% Inhal Soln (0.5 mg/2.5 ml) UD IH SCH ×3 (01:37→13:23)
[2017-09-10] MEDS: Timolol 0.25% Ophth SOLN OU SCH ×2 (06:23→18:48)
[2017-09-10 08:02] LABS: BASO # 0.1 K/uL (0.0-0.2); BASO % 0.5 % (0.0-2.0); EOS # 0.3 K/uL (0.0-0.7); EOS % 2.2 % (0.0-4.0); HEMOGLOBIN 7.8 g/dL (12.0-18.0); LYMPH % 16.5 % (20.0-40.0); MEAN CORPUSCULAR HGB CONC 33.7 g/dL (33.0-37.0); MEAN PLATELET VOLUME 8.2 fL (7.2-11.7); MONO % 8.7 % (0.0-10.0); NEUT # 8.6 K/uL (1.8-7.0); NEUT % 72.1 % (50.0-75.0); NRBC % 0.1 % (0.0-2.0); RBC 2.6 Mil/uL (4.40-5.90); WHITE BLOOD COUNT 11.9 K/uL (4.8-10.8)
[2017-09-10] MEDS: (Novolog) Insulin Aspart, Recombinant 100 u/ml 10 ml vial SC SCH ×3 (08:25→18:49)
[2017-09-10] MEDS: Multivitamin Vitamin B Complex (Nephro-Vite) Tab PO SCH (08:25)
[2017-09-10 08:39] LABS: ALB/GLOB RATIO 0.7 (1.0-2.1); ALBUMIN 2.8 g/dL (3.5-5.0); CALCIUM 8.4 mg/dl (8.6-10.4)
--- NOTE | 2017-09-10 09:39 | CP.PCM.PN ---
Subjective - Date & Time of Evaluation Date of Evaluation: 09/10/17 Time of Evaluation: 09:20 - Subjective Subjective: clinically same Objective - Vital Signs/Intake and Output Vital Signs (last 24 hours): Temp Pulse Resp BP Pulse Ox 98.1 F 71 20 131/68 96 09/10/17 07:43 09/10/17 07:47 09/10/17 07:43 09/10/17 07:43 09/10/17 07:43 Intake and Output: 09/10/17 09/10/17 06:59 18:59 Intake Total 100 Output Total 1150 Balance -1050 - Medications Medications: Current Medications Aspirin (Aspirin Chewable) 81 mg PO DAILY [facility] Last Admin: 09/09/17 10:12 Dose: 81 mg Carvedilol (Coreg) 3.125 mg PO BID [facility] Last Admin: 09/09/17 17:43 Dose: 3.125 mg Cyanocobalamin (Vitamin B12 1000 Mcg/Ml Inj) 1,000 mcg IM MWF [facility] Last Admin: 09/08/17 09:53 Dose: 1,000 mcg Dorzolamide HCl (Trusopt) 0 ml OU BID [facility] Last Admin: 09/09/17 17:46 Dose: 1 drop Ferrous Gluconate (Fergon) 324 mg PO TID [facility] Last Admin: 09/09/17 17:43 Dose: 324 mg Guaifenesin (Mucinex La) 600 mg PO BID [facility] Last Admin: 09/09/17 17:44 Dose: 600 mg Heparin Sodium (Porcine) (Heparin) 5,000 units SC Q12 [facility] Last Admin: 09/09/17 21:40 Dose: 5,000 units Cefepime HCl (Maxipime Iv 1 Gm Premix) 1 gm in 50 mls @ 100 mls/hr IVPB Q24H [facility] PRN Reason: Protocol Last Admin: 09/09/17 13:16 Dose: 100 mls/hr Insulin Aspart (Novolog) 0 unit SC ACHS [facility] PRN Reason: Protocol Last Admin: 09/10/17 08:25 Dose: 1 unit Insulin Glargine (Lantus) 10 unit SC HS [facility] Last Admin: 09/09/17 22:14 Dose: 10 u Ipratropium [place] (Atrovent) 0.5 mg IH RQ6 [facility] Last Admin: 09/10/17 07:08 Dose: 0.5 mg Latanoprost (Xalatan Opht) 0 ml OS HS [facility] Last Admin: 09/09/17 21:41 Dose: 2.5 ml Magnesium Oxide (Mag-Ox) 400 mg PO BID [facility] Stop: 09/18/17 15:01 Last Admin: 09/09/17 17:44 Dose: 400 mg Rosuvastatin Calcium (Crestor) 5 mg PO HS [facility] Last Admin: 09/09/17 21:40 Dose: 5 mg Saccharomyces Boulardii (Florastor) 250 mg PO BID [facility] Last Admin: 09/09/17 17:44 Dose: 250 mg Sodium Bicarbonate (Sodium Bicarbonate Tab) 650 mg PO BID [facility] Last Admin: 09/09/17 17:45 Dose: 650 mg Tamsulosin HCl (Flomax) 0.4 mg PO DAILY [facility] Last Admin: 09/09/17 10:12 Dose: 0.4 mg Timolol Maleate (Timoptic 0.25% Ophth Soln) 0 drop OU Q12H [facility] Last Admin: 09/10/17 06:23 Dose: 1 drop Vitamin B Complex/Vit C/Folic Acid (Nephro-Fe) 1 tab PO 0800 [facility] Last Admin: 09/10/17 08:25 Dose: 1 tab - Labs Labs: 09/10/17 07:55 09/10/17 07:55 PT 14.4 SECONDS (9.7-12.2) H 09/04/17 22:27 INR 1.3 09/04/17 22:27 APTT 22 SECONDS (21-34) 09/04/17 22:27 - Constitutional Appears: Well - Head Exam Head Exam: ATRAUMATIC, NORMAL INSPECTION, NORMOCEPHALIC - Eye Exam Eye Exam: EOMI, Normal appearance, PERRL Pupil Exam: NORMAL ACCOMODATION, PERRL - ENT Exam ENT Exam: Mucous Membranes Moist, Normal Exam - Neck Exam Neck Exam: Full ROM, Normal Inspection. absent: Lymphadenopathy - Respiratory Exam Respiratory Exam: Decreased Breath Sounds - Cardiovascular Exam Cardiovascular Exam: REGULAR RHYTHM, +S1, +S2 - GI/Abdominal Exam GI & Abdominal Exam: Soft, Diminished Bowel Sounds - Rectal Exam Rectal Exam: Deferred
[2017-09-10] MEDS: guaiFENesin 600 mg ER Tab PO SCH ×2 (09:56→18:46)
[2017-09-10] MEDS: Saccharomyces Boulardi 250 mg Cap PO SCH ×2 (09:56→18:47)
[2017-09-10] MEDS: Magnesium Oxide 400 mg Tab UD PO SCH ×2 (09:56→18:47)
[2017-09-10] MEDS: Dorzolamide 2% Opht Sol 10ml OU SCH ×2 (09:56→18:48)
--- NOTE | 2017-09-10 10:03 | CP.PCM.PN ---
Subjective - Date & Time of Evaluation Date of Evaluation: 09/10/17 Time of Evaluation: 10:02 - Subjective Subjective: Patient is sitting in bed No nausea and no vomiting Appetite is good and patient having his breakfast No chest pain or shortness of breath Objective - Vital Signs/Intake and Output Vital Signs (last 24 hours): Temp Pulse Resp BP Pulse Ox 98.1 F 71 20 131/68 96 09/10/17 07:43 09/10/17 07:47 09/10/17 07:43 09/10/17 07:43 09/10/17 07:43 Intake and Output: 09/10/17 09/10/17 06:59 18:59 Intake Total 100 Output Total 1150 Balance -1050 - Medications Medications: Current Medications Aspirin (Aspirin Chewable) 81 mg PO DAILY [facility] Last Admin: 09/10/17 09:56 Dose: 81 mg Carvedilol (Coreg) 3.125 mg PO BID [facility] Last Admin: 09/10/17 09:56 Dose: 3.125 mg Cyanocobalamin (Vitamin B12 1000 Mcg/Ml Inj) 1,000 mcg IM MWF [facility] Last Admin: 09/10/17 09:55 Dose: 1,000 mcg Dorzolamide HCl (Trusopt) 0 ml OU BID [facility] Last Admin: 09/10/17 09:56 Dose: 1 drop Ferrous Gluconate (Fergon) 324 mg PO TID [facility] Last Admin: 09/10/17 09:56 Dose: 324 mg Guaifenesin (Mucinex La) 600 mg PO BID [facility] Last Admin: 09/10/17 09:56 Dose: 600 mg Heparin Sodium (Porcine) (Heparin) 5,000 units SC Q12 [facility] Last Admin: 09/10/17 09:56 Dose: 5,000 units Cefepime HCl (Maxipime Iv 1 Gm Premix) 1 gm in 50 mls @ 100 mls/hr IVPB Q24H [facility] PRN Reason: Protocol Last Admin: 09/09/17 13:16 Dose: 100 mls/hr Insulin Aspart (Novolog) 0 unit SC ACHS [facility] PRN Reason: Protocol Last Admin: 09/10/17 08:25 Dose: 1 unit Insulin Glargine (Lantus) 10 unit SC HS [facility] Last Admin: 09/09/17 22:14 Dose: 10 u Ipratropium [place] (Atrovent) 0.5 mg IH RQ6 [facility] Last Admin: 09/10/17 07:08 Dose: 0.5 mg Latanoprost (Xalatan Opht) 0 ml OS HS [facility] Last Admin: 09/09/17 21:41 Dose: 2.5 ml Magnesium Oxide (Mag-Ox) 400 mg PO BID [facility] Stop: 09/18/17 15:01 Last Admin: 09/10/17 09:56 Dose: 400 mg Rosuvastatin Calcium (Crestor) 5 mg PO HS [facility] Last Admin: 09/09/17 21:40 Dose: 5 mg Saccharomyces Boulardii (Florastor) 250 mg PO BID [facility] Last Admin: 09/10/17 09:56 Dose: 250 mg Sodium Bicarbonate (Sodium Bicarbonate Tab) 650 mg PO BID [facility] Last Admin: 09/10/17 09:56 Dose: 650 mg Tamsulosin HCl (Flomax) 0.4 mg PO DAILY [facility] Last Admin: 09/10/17 09:56 Dose: 0.4 mg Timolol Maleate (Timoptic 0.25% Ophth Soln) 0 drop OU Q12H [facility] Last Admin: 09/10/17 06:23 Dose: 1 drop Vitamin B Complex/Vit C/Folic Acid (Nephro-Fe) 1 tab PO 0800 [facility] Last Admin: 09/10/17 08:25 Dose: 1 tab - Labs Labs: 09/10/17 07:55 09/10/17 07:55 PT 14.4 SECONDS (9.7-12.2) H 09/04/17 22:27 INR 1.3 09/04/17 22:27 APTT 22 SECONDS (21-34) 09/04/17 22:27 - Constitutional Appears: No Acute Distress - ENT Exam ENT Exam: Mucous Membranes Moist - Respiratory Exam Respiratory Exam: absent: Chest Wall Tenderness - GI/Abdominal Exam GI & Abdominal Exam: Soft, Normal Bowel Sounds - Extremities Exam Extremities Exam: absent: Calf Tenderness - Back Exam Back Exam: absent: CVA tenderness (L), CVA tenderness (R) - Neurological Exam Neurological Exam: Alert - Psychiatric Exam Psychiatric exam: Normal Affect - Skin Skin Exam: absent: Cyanosis Assessment and Plan (1) SHANNAN (acute kidney injury) Assessment & Plan: Acute Kidney Injury (N17.9) likely due to Obstructive uropathy as evident by bilateral hydronephrosis: improving kidney Function improving serum creatinine coming down Hypomagnesemia Retroperitoneal adenopathy, Possible metastatic prostate malignancy Severe anemia, UTI Acute [place] Hyperkalemia and metabolic acidosis Pneumonia CHF hx of DM, HTN Plan Maintain hemodynamics stable, avoid hypotension, Patient not on ACEI/ARB due to SHANNAN Monitor Input/Output, daily weights and renal function with basic metabolic panel continue with iron supplements, sodium bicarbonate 650 mg 2 times a day and Flomax 0.4 mg once a day appreciate and Heme evaluation Anemia management as per heme/onc supplemented mag, K Status: Acute (2) Anemia Status: Acute (3) Elevated PSA Status: Acute (4) NSTEMI (non-ST elevated myocardial infarction) Status: Acute (5) Obstructive uropathy Status: Acute (6) Diabetes mellitus Status: Acute
[2017-09-10] MEDS: Cefepime IV 1 gm in Dextrose 1 GM/50 ML BAG IVPB SCH (11:32)
--- NOTE | 2017-09-10 14:02 | CP.PCM.PN ---
Subjective - Date & Time of Evaluation Date of Evaluation: 09/10/17 Time of Evaluation: 14:01 - Subjective Subjective: PT CLEARED FOR D/C TO THE [facility] TODAY AFTER 1 UNIT OF PRBC GIVEN. TOMORROW AT THE [facility] A REPEAT CBC AND BMP WILL BE DONE AND DR QUEEN TO FOLLOW UP WITH THE RESULTS. PT ALSO BEING D/C WITH CATHETER IN PLACE (DR QUEEN AWARE) AND IT CAN BE REMOVED PER HIS ORDERS AT THE [facility] ONCE REACHING END DATE OF IV ABX. PT WILL GO TO [facility] WITH PICC LINE AND WITH CEFEPIME 1 GM IV DAILY X2 WEEKS. DISCUSSED CARDIO PLAN WITH DR. BUTLER AND WILL DEFER INVASIVE CARDIAC WORKUP FOR NOW PT HAS NEW METS. SW TO ARRANGE TRANSPORTATION TO THE [facility] FOR THIS AFTERNOON OR EVENING AFTER TRANSFUSION. PT'S CAREGIVER IN AGREEMENT WITH THE PLAN. RX FOR MEDICATIONS FAXED TO [facility] AND CAREGIVER ISAIAH WILL PICK THEM UP IN PREPARATION OF D/C HOME FROM [facility]. NO FURTHER ORDERS. SEE BELOW FOR D/C PLAN: -PLACE UNDER THE SERVICE OF DR. Ania QUEEN WHILE AT THE [facility] REHAB---CALL DR. QUEEN UPON ARRIVAL FOR ADMITTING ORDERS. -CONTINUE MEDICATIONS PER THE MED REC FORM---CHANGES CAN BE MADE BY DR. QUEEN. -PER DR. ARAYA'S RECOMMENDATIONS: CONTINUE CEFEPIME 1 GM IV DAILY X2 WEEKS ( START ON 09/11/17-END DATE IS 09/25/17). -PICC LINE CARE PER FACILITY PROTOCOL. PICC LINE CAN BE REMOVED AFTER 09/25/17 DOSE OF CEFEPIME. -[place] CARE PER FACILITY PROTOCOL; TO BE REMOVED PER DR. QUEEN'S ORDERS PRIOR TO DISCHARGE HOME. -MR. JOSE WILL BE READY FOR DISCHARGE HOME AFTER 09/25/17. DISCHARGE ORDER TO BE GIVEN AT THAT TIME BY DR. QUEEN. -PLEASE ARRANGE FOR HOME PHYSICAL THERAPY FOR DISCHARGE HOME FROM THE [facility]. TO FOLLOW UP WITH PMD, DR. LUQUE, AND DR. PATRICK (ONCOLOGIST) AFTER DISCHARGE FROM REHAB. -PLEASE ARRANGE FOR CBC AND BMP TO BE DRAWN TOMORROW, SEPTEMBER 11, 2017---NOTIFY DR. QUEEN OF RESULTS OF HGB AND LFTS. -FOR FURTHER CONCERNS OR ORDERS, CONTACT DR. QUEEN'S OFFICE. Objective - Vital Signs/Intake and Output Vital Signs (last 24 hours): Temp Pulse Resp BP Pulse Ox 98.4 F 73 18 111/59 L 96 09/10/17 13:30 09/10/17 13:30 09/10/17 13:30 09/10/17 13:30 09/10/17 07:43 Intake and Output: 09/10/17 09/10/17 06:59 18:59 Intake Total 100 0 Output Total 1150 Balance -1050 0 - Medications Medications: Current Medications Aspirin (Aspirin Chewable) 81 mg PO DAILY [facility] Last Admin: 09/10/17 09:56 Dose: 81 mg Carvedilol (Coreg) 3.125 mg PO BID [facility] Last Admin: 09/10/17 09:56 Dose: 3.125 mg Cyanocobalamin (Vitamin B12 1000 Mcg/Ml Inj) 1,000 mcg IM MWF [facility] Last Admin: 09/10/17 09:55 Dose: 1,000 mcg Dorzolamide HCl (Trusopt) 0 ml OU BID [facility] Last Admin: 09/10/17 09:56 Dose: 1 drop Ferrous Gluconate (Fergon) 324 mg PO TID [facility] Last Admin: 09/10/17 13:48 Dose: 324 mg Guaifenesin (Mucinex La) 600 mg PO BID [facility] Last Admin: 09/10/17 09:56 Dose: 600 mg Heparin Sodium (Porcine) (Heparin) 5,000 units SC Q12 [facility] Last Admin: 09/10/17 09:56 Dose: 5,000 units Cefepime HCl (Maxipime Iv 1 Gm Premix) 1 gm in 50 mls @ 100 mls/hr IVPB Q24H [facility] PRN Reason: Protocol Last Admin: 09/10/17 11:32 Dose: 100 mls/hr Insulin Aspart (Novolog) 0 unit SC ACHS [facility] PRN Reason: Protocol Last Admin: 09/10/17 12:29 Dose: 2 unit Insulin Glargine (Lantus) 10 unit SC HS [facility] Last Admin: 09/09/17 22:14 Dose: 10 u Ipratropium [place] (Atrovent) 0.5 mg IH RQ6 [facility] Last Admin: 09/10/17 13:23 Dose: Not Given Latanoprost (Xalatan Opht) 0 ml OS HS [facility] Last Admin: 09/09/17 21:41 Dose: 2.5 ml Magnesium Oxide (Mag-Ox) 400 mg PO BID [facility] Stop: 09/18/17 15:01 Last Admin: 09/10/17 09:56 Dose: 400 mg Rosuvastatin Calcium (Crestor) 5 mg PO HS [facility] Last Admin: 09/09/17 21:40 Dose: 5 mg Saccharomyces Boulardii (Florastor) 250 mg PO BID [facility] Last Admin: 09/10/17 09:56 Dose: 250 mg Sodium Bicarbonate (Sodium Bicarbonate Tab) 650 mg PO BID [facility] Last Admin: 09/10/17 09:56 Dose: 650 mg Tamsulosin HCl (Flomax) 0.4 mg PO DAILY [facility] Last Admin: 09/10/17 09:56 Dose: 0.4 mg Timolol Maleate (Timoptic 0.25% Oph Soln) 0 drop OU Q12H [facility] Last Admin: 09/10/17 06:23 Dose: 1 drop Vitamin B Complex/Vit C/Folic Acid (Nephro-Fe) 1 tab PO 0800 [facility] Last Admin: 09/10/17 08:25 Dose: 1 tab - Labs Labs: 09/10/17 07:55 09/10/17 07:55 PT 14.4 SECONDS (9.7-12.2) H 09/04/17 22:27 INR 1.3 09/04/17 22:27 APTT 22 SECONDS (21-34) 09/04/17 22:27
[2017-09-10 17:13] VITALS: BP 112/62; PULSE 102; RESP 21; TEMP 98.7; O2SAT 95
--- NOTE | 2017-09-10 21:54 | PN ---
DATE: 09/10/2017 SUBJECTIVE: The patient is currently seen, packed RBC transfusion. He denies any chest pain or shortness of breath. PHYSICAL EXAMINATION: VITAL SIGNS: Blood pressure 124/61, heart rate 75, temperature 98.3, respirations 18. HEENT: Pale conjunctiva. CHEST: Clear. HEART: Heart sounds S1 and S2, regular. EXTREMITIES: No edema. LABORATORY DATA: Today's BUN and creatinine are 60 and 2.4 respectively. Glucose 169, potassium is 4.3, calcium is 8.4. Today's hemoglobin and hematocrit are 7.8 and 23.1. White count 11.9, platelet count 287,000. ASSESSMENT: 1. Metastatic prostatic carcinoma. 2. Status post non-ST elevation myocardial infarction. 3. Anemia. 4. Bladder neck obstruction with obstructive uropathy, status post Nair catheter placement. 5. Anemia, the patient is currently receiving packed red blood cells transfusion. RECOMMENDATIONS: Continue aspirin 81 mg once a day, Coreg at 3.125 mg twice a day, heparin 5000 units subcutaneous twice a day, Flomax 0.4 mg once a day, Crestor 5 mg once a day. The patient is in the process of intensive subacute rehab. Case was discussed with NURSE PRACTITIONER MANAGER. The patient not a suitable candidate for invasive cardiac workup at this stage. Kaleb Newman MD
--- NOTE | 2017-09-10 23:06 | CP.PCM.PN ---
Subjective - Date & Time of Evaluation Date of Evaluation: 09/10/17 Time of Evaluation: 12:45 - Subjective Subjective: No complaints. Objective - Vital Signs/Intake and Output Vital Signs (last 24 hours): Temp Pulse Resp BP Pulse Ox 98.7 F 102 H 21 112/62 95 09/10/17 15:00 09/10/17 15:00 09/10/17 15:00 09/10/17 15:00 09/10/17 15:00 Intake and Output: 09/10/17 09/11/17 18:59 06:59 Intake Total 325 Output Total 1000 Balance -675 - Labs Labs: 09/10/17 07:55 09/10/17 07:55 PT 14.4 SECONDS (9.7-12.2) H 09/04/17 22:27 INR 1.3 09/04/17 22:27 APTT 22 SECONDS (21-34) 09/04/17 22:27 - Head Exam Head Exam: ATRAUMATIC - Eye Exam Eye Exam: Normal appearance - ENT Exam ENT Exam: Mucous Membranes Dry - Respiratory Exam Respiratory Exam: NORMAL BREATHING PATTERN - Cardiovascular Exam Cardiovascular Exam: +S1, +S2 - GI/Abdominal Exam GI & Abdominal Exam: Normal Bowel Sounds Assessment and Plan (1) Anemia Assessment & Plan: work up consistent with chronic disease and renal disease ? bone metastasis transfusion support PRN Status: Acute (2) Elevated PSA Assessment & Plan: with bone lesions concerning for metastatic prostate cancer will need biopsy when more stable Status: Acute
== END 2017-09-10 20:15 | DRG 280 ==
LOC: C.ER 11:59 → C.9I 15:26 → C.5S 09-08 17:53
PROVIDERS: ADMIT Internal Medicine Nephrology; ATTEND Internal Medicine Nephrology
PROC: 02HV33Z Insertion of Infusion Device into Superior Vena Cava, Percutaneous Approach (ICD-10-PCS; principal; 2017-09-09)
DX: I21.4 Non-ST elevation (NSTEMI) myocardial infarction (principal); J15.4 Pneumonia due to other streptococci; I13.0 Hypertensive heart and chronic kidney disease with heart failure and stage 1 through stage 4 chronic kidney disease, or unspecified chronic kidney disease; E87.2 Acidosis; N17.9 Acute kidney failure, unspecified; N13.30 Unspecified hydronephrosis; N39.0 Urinary tract infection, site not specified; I25.119 Atherosclerotic heart disease of native coronary artery with unspecified angina pectoris; E87.5 Hyperkalemia; E87.6 Hypokalemia; I25.5 Ischemic cardiomyopathy; I50.9 Heart failure, unspecified; E83.42 Hypomagnesemia; E78.5 Hyperlipidemia, unspecified; E53.8 Deficiency of other specified B group vitamins; C61 Malignant neoplasm of prostate; Z87.891 Personal history of nicotine dependence; Z79.4 Long term (current) use of insulin; N32.0 Bladder-neck obstruction; N35.9 Urethral stricture, unspecified; N18.9 Chronic kidney disease, unspecified; R32 Unspecified urinary incontinence; E11.22 Type 2 diabetes mellitus with diabetic chronic kidney disease; D63.1 Anemia in chronic kidney disease; B96.89 Other specified bacterial agents as the cause of diseases classified elsewhere

== ENCOUNTER 2017-09-23 21:33 | Emergency (ER) | payer MEDICARE ==
[2017-09-23 22:00] VITALS: TEMP 98.5; O2SAT 100
--- NOTE | 2017-09-23 22:59 | C.PDOC ---
History Of Present Illness 87 y/o male with a PMHx of HTN, BPH with indwelling Nair, and anemia, sent over from halfway for evaluation of blood in urine and elevated LFTs. Patient denies any acute complaints. States he has mild intermittent suprapubic discomfort, but no new or worsening pain. Denies any fever, vomiting, or chills. Time Seen by Provider: 09/23/17 22:51 Chief Complaint (Nursing): Male Genitourinary History Per: Patient History/Exam Limitations: clinical condition (dementia) Onset/Duration Of Symptoms: Days Current Symptoms Are (Timing): Still Present Additional History Per: Correction Past Medical History Reviewed: Historical Data, Nursing Documentation, Vital Signs Vital Signs: Last Vital Signs Temp 98.5 F 09/24/17 01:25 Pulse 68 09/24/17 01:25 Resp 19 09/24/17 01:25 BP 154/78 H 09/24/17 01:25 Pulse Ox 100 09/24/17 03:05 - Medical History PMH: Anemia, Arthritis, Benign Prostatic Hyperplasia, HTN Denies: Chronic Kidney Disease - [facility] Procedures DILATION OF URETHRA, ENDO (10/09/16) EXCISION OF DESCENDING COLON, ENDO, DIAGN (10/09/16) INSERTION OF INFUSION DEV INTO SUP VENA CAVA, PERC APPROACH (09/04/17) Family History: States: Unknown Family Hx - Social History Hx Alcohol Use: No Hx Substance Use: No - Immunization History Hx Tetanus Toxoid Vaccination: Yes Hx Influenza Vaccination: Yes Hx Pneumococcal Vaccination: Yes Review Of Systems Except As Marked, All Systems Reviewed And Found Negative. Constitutional: Negative for: Fever, Chills Gastrointestinal: Positive for: Abdominal Pain (suprapubic). Negative for: Nausea, Vomiting Genitourinary: Positive for: Hematuria Physical Exam - Physical Exam Appears: No Acute Distress, Confused (mildly) Skin: Warm, Dry, Pale Head: Atraumatic, Normacephalic Eye(s): bilateral: PERRL, EOMI, Conjunctiva Pale Ear(s): Bilateral: Normal Nose: Normal Oral Mucosa: Moist Neck: Normal ROM, Supple Chest: Symmetrical Cardiovascular: Rhythm Regular, No Murmur, Other (S1, S2 are wnl) Respiratory: Normal Breath Sounds, No Rales, No Rhonchi, No Wheezing Gastrointestinal/Abdominal: Soft, Tenderness (mild suprapubic tenderness), No Mass, No Guarding, Other (indwelling Nair catheter with few clots noted, otherwise clear urine) Extremity: Bilateral: Atraumatic, Normal ROM Pulses: Left Dorsalis Pedis: Normal, Right Dorsalis Pedis: Normal Neurological/Psych: Normal Speech, Other (Confused but awake and alert, responsive to questions, no focal deficits) ED Course And Treatment - Laboratory Results Result Diagrams: 09/23/17 23:06 09/23/17 23:06 O2 Sat by Pulse Oximetry: 100 (RA) Pulse Ox Interpretation: Normal Medical Decision Making Medical Decision Making: Impression: Mild hematuria, possibly secondary to Nair, r/o UTI Plan: --UA and urine culture --Routine blood work Labs reviewed, urine is clear. Patient stable for d/c back to halfway. Pt has chronic anemia,not changed from prior labs of few weeks ago,chronic renal insufficiency and tranaminase elevation of unclear etiology.No acute indication for admission Disposition Counseled Patient/Family Regarding: Studies Performed, Diagnosis, Need For Followup - Disposition Referrals: Chelle Alcala MD [Staff Provider] - Disposition: HOME/ ROUTINE Disposition Time: 01:25 Condition: STABLE Instructions: Anemia Caused by Low Iron Forms: [employer] (Japanese) Print Language: ARABIC - Clinical Impression Clinical Impression: Hematuria, Chronic anemia, Chronic renal insufficiency - Scribe Statement The provider has reviewed the documentation as recorded by the Scribe (Sharon Valentino) Provider Attestation: All medical record entries made by the Scribe were at my direction and personally dictated by me. I have reviewed the chart and agree that the record accurately reflects my personal performance of the history, physical exam, medical decision making, and the department course for this patient. I have also personally directed, reviewed, and agree with the discharge instructions and disposition.
[2017-09-23 23:21] LABS: URINE BILIRUBIN NEGATIVE (NEGATIVE); URINE BLOOD NEGATIVE (NEGATIVE); URINE CLARITY Clear (Clear); URINE COLOR Colorless (YELLOW); URINE GLUCOSE (UA) NORMAL (Normal); URINE LEUKOCYTE ESTERASE NEG Leu/uL (Negative); URINE PROTEIN NEGATIVE (NEGATIVE); URINE UROBILINOGEN NORMAL mg/dL (0.2-1.0)
[2017-09-23 23:27] LABS: ALB/GLOB RATIO 0.7 (1.0-2.1); ALBUMIN 3.2 g/dL (3.5-5.0); CALCIUM 8.5 mg/dl (8.6-10.4)
[2017-09-23 23:29] LABS: BASO # 0.1 K/uL (0.0-0.2); BASO % 1.4 % (0.0-2.0); EOS # 0.3 K/uL (0.0-0.7); HEMOGLOBIN 8.1 g/dL (12.0-18.0); LYMPH % 20.3 % (20.0-40.0); MEAN CELL VOLUME 88.8 fL (80.0-94.0); MEAN CORPUSCULAR HEMOGLOBIN 30.2 pg (27.0-31.0); MONO % 9.9 % (0.0-10.0); NEUT # 6.4 K/uL (1.8-7.0); NEUT % 65.4 % (50.0-75.0); NRBC % 0.1 % (0.0-2.0); RBC 2.68 Mil/uL (4.40-5.90); RED CELL DISTRIBUTION WIDTH 14.3 % (11.5-14.5); WHITE BLOOD COUNT 9.7 K/uL (4.8-10.8)
[2017-09-24 00:02] VITALS: RESP 19
[2017-09-24 01:28] VITALS: BP 154/78; PULSE 68
== END 2017-09-24 01:28 | disposition home or self-care (01) ==
LOC: C.ER 21:33
DX: R31.9 Hematuria, unspecified (principal); I12.9 Hypertensive chronic kidney disease with stage 1 through stage 4 chronic kidney disease, or unspecified chronic kidney disease; N18.9 Chronic kidney disease, unspecified; D64.9 Anemia, unspecified

== ENCOUNTER 2017-09-30 00:02 | Inpatient (IN) | payer MEDICARE ==
--- NOTE | 2017-09-30 00:22 | C.PDOC ---
History Of Present Illness 87 year old male is sent to the ED from his Longterm for evaluation of low hemoglobin. On arrival to the ED patient reports he does not have any physical complaints at this time. Patient denies CP, SOB, fever, chills, nausea, vomit, diarrhea, dizziness, weakness, numbness. Time Seen by Provider: 09/30/17 00:22 Chief Complaint (Nursing): Abnormal Labs History Per: Patient, Other (correction) History/Exam Limitations: no limitations Onset/Duration Of Symptoms: Days Current Symptoms Are (Timing): Still Present Recent travel outside of the [place]: No Additional History Per: Patient, Longterm Past Medical History Reviewed: Historical Data, Nursing Documentation, Vital Signs Vital Signs: Last Vital Signs Temp 98.9 F 09/30/17 00:10 Pulse 73 09/30/17 02:39 Resp 22 09/30/17 02:39 BP 120/57 L 09/30/17 02:39 Pulse Ox 96 09/30/17 03:25 - Medical History PMH: Anemia, Arthritis, Benign Prostatic Hyperplasia, HTN Denies: Chronic Kidney Disease Surgical History: No Surg Hx - [facility] Procedures DILATION OF URETHRA, ENDO (10/09/16) EXCISION OF DESCENDING COLON, ENDO, DIAGN (10/09/16) INSERTION OF INFUSION DEV INTO SUP VENA CAVA, PERC APPROACH (09/04/17) Family History: States: No Known Family Hx - Social History Hx Alcohol Use: No Hx Substance Use: No - Immunization History Hx Tetanus Toxoid Vaccination: Yes Hx Influenza Vaccination: Yes Hx Pneumococcal Vaccination: Yes Review Of Systems Constitutional: Negative for: Fever, Chills Cardiovascular: Negative for: Chest Pain Respiratory: Negative for: Shortness of Breath Gastrointestinal: Negative for: Vomiting, Abdominal Pain Skin: Negative for: Rash Neurological: Negative for: Weakness, Numbness, Dizziness Physical Exam - Physical Exam Appears: Non-toxic, No Acute Distress Skin: Warm, Dry Head: Normacephalic Eye(s): bilateral: Conjunctiva Pale Nose: No Discharge Oral Mucosa: Moist Neck: Normal ROM, Supple Chest: Symmetrical Cardiovascular: Rhythm Regular, No Murmur Respiratory: No Rales, No Rhonchi, No Wheezing Gastrointestinal/Abdominal: Soft, No Tenderness, No Guarding, No Rebound Rectal: Heme Negative, Maroon Stool Extremity: No Tenderness, No Swelling Extremity: Bilateral: Normal Color And Temperature, Normal ROM Pulses: Left Dorsalis Pedis: Normal, Right Dorsalis Pedis: Normal Neurological/Psych: Oriented x3 (mildly confused), Normal Motor, Normal Sensation Gait: Unable To Assess ED Course And Treatment - Laboratory Results Result Diagrams: 09/30/17 00:35 09/30/17 00:35 ECG: Interpreted By Me, Viewed By Me ECG Rhythm: Sinus Rhythm (78), Nonspecific Changes O2 Sat by Pulse Oximetry: 96 (ON RA) Pulse Ox Interpretation: Normal Progress Note: Plan: - EKG. - CXR. - Labs. - UA Disposition Discussed With Dr.: Chelle Alcala Comment: accepted the pt on his service and took over the care at 3:24 AM Doctor Will See Patient In The: Hospital Counseled Patient/Family Regarding: Studies Performed, Diagnosis - Disposition Disposition: HOSPITALIZED Disposition Time: 00:22 Condition: FAIR Forms: [facility] (Latvian) - POA Present On Arrival: Poor Glycemic Control - Clinical Impression Clinical Impression: Anemia, Renal insufficiency - Scribe Statement The provider has reviewed the documentation as recorded by the Scribe Evgeny Herrera All medical record entries made by the Scribe were at my direction and personally dictated by me. I have reviewed the chart and agree that the record accurately reflects my personal performance of the history, physical exam, medical decision making, and the department course for this patient. I have also personally directed, reviewed, and agree with the discharge instructions and disposition. Decision To Admit - Pt Status Changed To: Hospital Disposition Of: Inpatient - Admit Certification Admit to Inpatient:: After my assessment, the patient will require hospitalization for at least two midnights. This is because of the severity of symptoms shown, intensity of services needed, and/or the medical risk in this patient being treated as an outpatient. - InPatient: Physician Admission Certification: I certify that this patient requires 2 or more midnights of care for the following reason:: After my assessment, the patient will require hospitalization for at least two midnights. This is because of the severity of symptoms shown, intensity of services needed, and/or the medical risk in this patient being treated as an outpatient. - . Bed Request Type: Regular Admitting Physician: Chelle Alcala Patient Diagnosis: Anemia, Renal insufficiency
[2017-09-30 00:38] LABS: BASO # 0.1 K/uL (0.0-0.2); BASO % 0.9 % (0.0-2.0); EOS # 0.3 K/uL (0.0-0.7); EOS % 3.1 % (0.0-4.0); HEMOGLOBIN 7.3 g/dL (12.0-18.0); LYMPH # 1.8 K/uL (1.0-4.3); LYMPH % 16.4 % (20.0-40.0); MEAN CELL VOLUME 87.5 fL (80.0-94.0); MEAN CORPUSCULAR HEMOGLOBIN 29.4 pg (27.0-31.0); MEAN CORPUSCULAR HGB CONC 33.6 g/dL (33.0-37.0); MONO # 1.2 K/uL (0.0-0.8); MONO % 11.1 % (0.0-10.0); NEUT # 7.6 K/uL (1.8-7.0); NEUT % 68.5 % (50.0-75.0); RBC 2.48 Mil/uL (4.40-5.90); RED CELL DISTRIBUTION WIDTH 14.5 % (11.5-14.5); WHITE BLOOD COUNT 11.1 K/uL (4.8-10.8)
[2017-09-30 00:48] LABS: INR 1.4; PROTHROMBIN TIME 15.6 SECONDS (9.7-12.2)
[2017-09-30 01:07] LABS: ALB/GLOB RATIO 0.7 (1.0-2.1); ALBUMIN 3.2 g/dL (3.5-5.0); CALCIUM 8.1 mg/dl (8.6-10.4)
[2017-09-30 06:58] LABS: SQUAMOUS EPITHIAL 9 /hpf (0-5); URINE BACTERIA RARE (<OCC); URINE BILIRUBIN NEGATIVE (NEGATIVE); URINE BLOOD 2+ (NEGATIVE); URINE CLARITY Clear (Clear); URINE COLOR Straw (YELLOW); URINE GLUCOSE (UA) 1+ mg/dL (Normal); URINE LEUKOCYTE ESTERASE NEG Leu/uL (Negative); URINE PROTEIN 1+ mg/dL (NEGATIVE); URINE UROBILINOGEN NORMAL mg/dL (0.2-1.0)
--- NOTE | 2017-09-30 07:57 | CP.PCM.HP ---
History of Present Illness - History of Present Illness History of Present Illness: Patient is a 87 M with a PMH of metastatic prostate cancer causing obstructive uropathy, HTN, CHF, NSTEMI, with history of severe anemia comes to the ED after being found to have a low hgb at the [facility]. Patient was recently admitted and had an NTEMI with no intervention. Past Patient History - Infectious Disease Hx of Infectious Diseases: None - Past Medical History & Family History Past Medical History?: Yes - Past Social History Smoking Status: Never Smoked - CARDIAC Hx Hypertension: Yes - PULMONARY Hx Respiratory Disorders: No - NEUROLOGICAL Hx Neurological Disorder: No - HEENT Hx HEENT Problems: No - RENAL Hx Chronic Kidney Disease: No - ENDOCRINE/METABOLIC Hx Diabetes Mellitus Type 2: Yes - HEMATOLOGICAL/ONCOLOGICAL Hx Anemia: Yes - INTEGUMENTARY Hx Dermatological Problems: No - MUSCULOSKELETAL/RHEUMATOLOGICAL Hx Arthritis: Yes - GASTROINTESTINAL Hx Gastrointestinal Disorders: Yes Hx Gastroesophageal Reflux: Yes - GENITOURINARY/GYNECOLOGICAL Hx Prostate Problems: Yes - PSYCHIATRIC Hx Substance Use: No - SURGICAL HISTORY Hx Surgeries: Yes Other/Comment: Prostate - ANESTHESIA Hx Anesthesia: No Hx Anesthesia Reactions: No Hx Malignant Hyperthermia: No Meds Allergies/Adverse Reactions: Allergies Allergy/AdvReac Type Severity Reaction Status Date / Time No Known Allergies Allergy Verified 09/30/17 00:20 Results - Vital Signs Recent Vital Signs: Last Vital Signs Temp 99.0 F 09/30/17 06:10 Pulse 70 09/30/17 06:50 Resp 20 09/30/17 06:50 BP 140/55 L 09/30/17 06:50 Pulse Ox 98 09/30/17 06:50 - Labs Result Diagrams: 09/30/17 00:35 09/30/17 00:35 Labs: Laboratory Results - last 24 hr 09/30/17 09/30/17 09/30/17 00:15 00:35 00:35 WBC 11.1 H RBC 2.48 L Hgb 7.3 L Hct 21.7 L MCV 87.5 MCH 29.4 MCHC 33.6 RDW 14.5 Plt Count 305 MPV 8.0 Neut % (Auto) 68.5 Lymph % (Auto) 16.4 L [place] % (Auto) 11.1 H Eos % (Auto) 3.1 Baso % (Auto) 0.9 Neut # (Auto) 7.6 H Lymph # (Auto) 1.8 [place] # (Auto) 1.2 H Eos # (Auto) 0.3 Baso # (Auto) 0.1 PT INR APTT Sodium 136 Potassium 5.2 Chloride 100 Carbon Dioxide 20 L Anion Gap 21 H BUN 60 H Creatinine 4.2 H Est GFR ( Amer) 16 Est GFR (Non-Af Amer) 14 Random Glucose 124 H Calcium 8.1 L Total Bilirubin 0.4 AST 69 H D ALT 109 H D Alkaline Phosphatase 113 Total Protein 7.7 Albumin 3.2 L Globulin 4.5 H Albumin/Globulin Ratio 0.7 L Urine Color Urine Clarity Urine pH Ur Specific [place] Urine Protein Urine Glucose (UA) Urine Ketones Urine Blood Urine Nitrate Urine Bilirubin Urine Urobilinogen Ur Leukocyte Esterase Urine WBC (Auto) Urine RBC (Auto) Ur Squamous Epith Cells Urine Bacteria Stool Occult Blood Blood Type O NEGATIVE Antibody Screen Negative 09/30/17 09/30/17 09/30/17 00:35 06:07 06:52 WBC RBC Hgb Hct MCV MCH MCHC RDW Plt Count MPV Neut % (Auto) Lymph % (Auto) [place] % (Auto) Eos % (Auto) Baso % (Auto) Neut # (Auto) Lymph # (Auto) [place] # (Auto) Eos # (Auto) Baso # (Auto) PT 15.6 H INR 1.4 APTT 30 Sodium Potassium Chloride Carbon Dioxide Anion Gap BUN Creatinine Est GFR ( Amer) Est GFR (Non-Af Amer) Random Glucose Calcium Total Bilirubin AST ALT Alkaline Phosphatase Total Protein Albumin Globulin Albumin/Globulin Ratio Urine Color Straw Urine Clarity Clear Urine pH 7.0 Ur Specific [place] 1.006 Urine Protein 1+ H Urine Glucose (UA) 1+ H Urine Ketones Negative Urine Blood 2+ H Urine Nitrate Negative Urine Bilirubin Negative Urine Urobilinogen Normal Ur Leukocyte Esterase Neg Urine WBC (Auto) 3 Urine RBC (Auto) 29 H Ur Squamous Epith Cells 9 H Urine Bacteria Rare Stool Occult Blood Negative Blood Type Antibody Screen
--- NOTE | 2017-09-30 08:14 | RAD ---
Chest x-ray single frontal view History: Shortness of breath. Comparison: 09/04/2017 Findings: Biapical pleural thickening with upper lobe granulomatous changes. Moderate venous congestion with diffuse increased interstitial lung markings. Patchy increased markings at both lung bases. Small right pleural effusion. Cardiomegaly. Enlarged ectatic aorta. Degenerative changes in the spine and shoulders. Right central venous catheter with tip extending to the cavoatrial junction. Impression: Biapical pleural thickening with upper lobe granulomatous changes. Moderate venous congestion with diffuse increased interstitial lung markings. Patchy increased markings at both lung bases. Small right pleural effusion. Cardiomegaly. Enlarged ectatic aorta.
[2017-09-30] MEDS ORDERED: Sodium Chloride 0.9% 1,000 ML IV SCH (09:00)
[2017-09-30] MEDS: Piperacill/Tazo 2.25gm in Dex 2.25 GM/50 ML BAG IVPB SCH ×3 (09:53→21:39)
[2017-09-30] MEDS: Sodium Chloride 0.9% 1,000 ML IV SCH (09:54)
[2017-09-30] MEDS: Timolol 0.25% Ophth SOLN OU SCH ×2 (10:21→21:40)
[2017-09-30] MEDS: Pantoprazole 40 mg EC Tab PO SCH (10:54)
[2017-09-30] MEDS: Magnesium Oxide 400 mg Tab UD PO SCH ×2 (10:54→17:53)
[2017-09-30] MEDS: Saccharomyces Boulardi 250 mg Cap PO SCH ×2 (10:55→17:54)
[2017-09-30] MEDS: (Novolog) Insulin Aspart, Recombinant 100 u/ml 10 ml vial SC SCH ×2 (12:20→17:53)
--- NOTE | 2017-09-30 13:35 | CP.PCM.CON ---
History of Present Illness - History of Present Illness History of Present Illness: 87 year old male with a history of DM, HTN, elevated PSA with retroperitoneal lymphadenopathy and sclerotic bone lesions in 2017, admitted after being found to have a low hgb at the [facility]. The patient denies complaints. He denies abnormal bleeding and bruising. He is currently s/p PRBC transfusion and reports to feeling fine. Past medical history: DM, HTN, elevated PSA with retroperitoneal lymphadenopathy and sclerotic bone lesions in 2017 Past surgical history: Hernia repair Family history: Denies hematologic and oncologic problems Social history: Denies tobacco, alcohol, and illicit drug use. Allergies: NKA Review of systems: All remaining review of systems including HEENT, cardiovascular, respiratory, gastrointestinal, genitourinary, musculoskeletal, dermatologic, neurologic, and psychiatric are negative unless mentioned in the HPI. Past Patient History - Infectious Disease Hx of Infectious Diseases: None - Past Medical History & Family History Past Medical History?: Yes - Past Social History Smoking Status: Never Smoked - CARDIAC Hx Hypertension: Yes - PULMONARY Hx Respiratory Disorders: No - NEUROLOGICAL Hx Neurological Disorder: No - HEENT Hx HEENT Problems: No - RENAL Hx Chronic Kidney Disease: No - ENDOCRINE/METABOLIC Hx Diabetes Mellitus Type 2: Yes - HEMATOLOGICAL/ONCOLOGICAL Hx Anemia: Yes - INTEGUMENTARY Hx Dermatological Problems: No - MUSCULOSKELETAL/RHEUMATOLOGICAL Hx Arthritis: Yes - GASTROINTESTINAL Hx Gastrointestinal Disorders: Yes Hx Gastroesophageal Reflux: Yes - GENITOURINARY/GYNECOLOGICAL Hx Prostate Problems: Yes - PSYCHIATRIC Hx Substance Use: No - SURGICAL HISTORY Hx Surgeries: Yes Other/Comment: Prostate - ANESTHESIA Hx Anesthesia: No Hx Anesthesia Reactions: No Hx Malignant Hyperthermia: No Meds Allergies/Adverse Reactions: Allergies Allergy/AdvReac Type Severity Reaction Status Date / Time No Known Allergies Allergy Verified 09/30/17 00:20 - Medications Medications: Current Medications Albuterol/Ipratropium (Duoneb 3 Mg/0.5 Mg (3 Ml) Ud) 3 ml INH RQ6 [facility] Aspirin (Aspirin Chewable) 81 mg PO DAILY [facility] Last Admin: 09/30/17 10:54 Dose: 81 mg Carvedilol (Coreg) 3.125 mg PO BID [facility] Last Admin: 09/30/17 10:55 Dose: 3.125 mg Dorzolamide HCl (Trusopt) 1 ml OU BID [facility] Ferrous Gluconate (Fergon) 324 mg PO TID [facility] Last Admin: 09/30/17 10:20 Dose: Not Given Furosemide (Lasix) 40 mg PO DAILY [facility] Last Admin: 09/30/17 10:54 Dose: 40 mg Piperacillin Sod/Tazobactam Sod (Zosyn 2.25 Gm Iv Premix) 2.25 gm in 50 mls @ 100 mls/hr IVPB Q6H [facility] PRN Reason: Protocol Last Admin: 09/30/17 09:53 Dose: 100 mls/hr Sodium Chloride (Sodium Chloride 0.9%) 1,000 mls @ 50 mls/hr IV .Q20H [facility] Last Admin: 09/30/17 09:54 Dose: 50 mls/hr Insulin Aspart (Novolog) 0 unit SC ACHS [facility] PRN Reason: Protocol Last Admin: 09/30/17 12:20 Dose: 6 unit Insulin Glargine (Lantus) 10 unit SC HS [facility] Latanoprost (Xalatan Opht) 1 ml OS HS [facility] Magnesium Oxide (Mag-Ox) 400 mg PO BID [facility] Last Admin: 09/30/17 10:54 Dose: 400 mg Pantoprazole Sodium (Protonix Ec Tab) 40 mg PO DAILY [facility] Last Admin: 09/30/17 10:54 Dose: 40 mg Rosuvastatin Calcium (Crestor) 5 mg PO HS [facility] Saccharomyces Boulardii (Florastor) 250 mg PO BID [facility] Last Admin: 09/30/17 10:55 Dose: 250 mg Sodium Bicarbonate (Sodium Bicarbonate Tab) 650 mg PO BID [facility] Last Admin: 09/30/17 10:54 Dose: 650 mg Tamsulosin HCl (Flomax) 0.4 mg PO DAILY [facility] Last Admin: 09/30/17 10:55 Dose: 0.4 mg Timolol Maleate (Timoptic 0.25% Ophth Soln) 1 drop OU Q12H [facility] Last Admin: 09/30/17 10:21 Dose: Not Given Vitamin B Complex/Vit C/Folic Acid (Nephro-Fe) 1 tab PO 0800 [facility] Physical Exam - Head Exam Head Exam: ATRAUMATIC - Eye Exam Eye Exam: Normal appearance - ENT Exam ENT Exam: Mucous Membranes Dry - Respiratory Exam Respiratory Exam: NORMAL BREATHING PATTERN - Cardiovascular Exam Cardiovascular Exam: +S1, +S2 - GI/Abdominal Exam GI & Abdominal Exam: Normal Bowel Sounds Results - Vital Signs Recent Vital Signs: Last Vital Signs Temp 97.5 F L 09/30/17 12:59 Pulse 61 09/30/17 12:59 Resp 20 09/30/17 12:59 BP 146/63 09/30/17 12:59 Pulse Ox 97 09/30/17 09:40 - Labs Result Diagrams: 09/30/17 16:53 09/30/17 00:35 Labs: Laboratory Results - last 24 hr 09/30/17 09/30/17 09/30/17 00:15 00:35 00:35 WBC 11.1 H RBC 2.48 L Hgb 7.3 L Hct 21.7 L MCV 87.5 MCH 29.4 MCHC 33.6 RDW 14.5 Plt Count 305 MPV 8.0 Neut % (Auto) 68.5 Lymph % (Auto) 16.4 L Williams % (Auto) 11.1 H Eos % (Auto) 3.1 Baso % (Auto) 0.9 Neut # (Auto) 7.6 H Lymph # (Auto) 1.8 Williams # (Auto) 1.2 H Eos # (Auto) 0.3 Baso # (Auto) 0.1 PT INR APTT Sodium 136 Potassium 5.2 Chloride 100 Carbon Dioxide 20 L Anion Gap 21 H BUN 60 H Creatinine 4.2 H Est GFR ( Amer) 16 Est GFR (Non-Af Amer) 14 POC Glucose (mg/dL) Random Glucose 124 H Calcium 8.1 L Total Bilirubin 0.4 AST 69 H D ALT 109 H D Alkaline Phosphatase 113 Total Protein 7.7 Albumin 3.2 L Globulin 4.5 H Albumin/Globulin Ratio 0.7 L Urine Color Urine Clarity Urine pH Ur Specific [place] Urine Protein Urine Glucose (UA) Urine Ketones Urine Blood Urine Nitrate Urine Bilirubin Urine Urobilinogen Ur Leukocyte Esterase Urine WBC (Auto) Urine RBC (Auto) Ur Squamous Epith Cells Urine Bacteria Stool Occult Blood Blood Type O NEGATIVE Antibody Screen Negative 09/30/17 09/30/17 09/30/17 00:35 06:07 06:52 WBC RBC Hgb Hct MCV MCH MCHC RDW Plt Count MPV Neut % (Auto) Lymph % (Auto) [place] % (Auto) Eos % (Auto) Baso % (Auto) Neut # (Auto) Lymph # (Auto) [place] # (Auto) Eos # (Auto) Baso # (Auto) PT 15.6 H INR 1.4 APTT 30 Sodium Potassium Chloride Carbon Dioxide Anion Gap BUN Creatinine Est GFR ( Amer) Est GFR (Non-Af Amer) POC Glucose (mg/dL) Random Glucose Calcium Total Bilirubin AST ALT Alkaline Phosphatase Total Protein Albumin Globulin Albumin/Globulin Ratio Urine Color Straw Urine Clarity Clear Urine pH 7.0 Ur Specific [place] 1.006 Urine Protein 1+ H Urine Glucose (UA) 1+ H Urine Ketones Negative Urine Blood 2+ H Urine Nitrate Negative Urine Bilirubin Negative Urine Urobilinogen Normal Ur Leukocyte Esterase Neg Urine WBC (Auto) 3 Urine RBC (Auto) 29 H Ur Squamous Epith Cells 9 H Urine Bacteria Rare Stool Occult Blood Negative Blood Type Antibody Screen 09/30/17 11:21 WBC RBC Hgb Hct MCV MCH MCHC RDW Plt Count MPV Neut % (Auto) Lymph % (Auto) [place] % (Auto) Eos % (Auto) Baso % (Auto) Neut # (Auto) Lymph # (Auto) [place] # (Auto) Eos # (Auto) Baso # (Auto) PT INR APTT Sodium Potassium Chloride Carbon Dioxide Anion Gap BUN Creatinine Est GFR ( Amer) Est GFR (Non-Af Amer) POC Glucose (mg/dL) 266 H Random Glucose Calcium Total Bilirubin AST ALT Alkaline Phosphatase Total Protein Albumin Globulin Albumin/Globulin Ratio Urine Color Urine Clarity Urine pH Ur Specific [place] Urine Protein Urine Glucose (UA) Urine Ketones Urine Blood Urine Nitrate Urine Bilirubin Urine Urobilinogen Ur Leukocyte Esterase Urine WBC (Auto) Urine RBC (Auto) Ur Squamous Epith Cells Urine Bacteria Stool Occult Blood Blood Type Antibody Screen Assessment & Plan (1) Anemia Assessment and Plan: anemia of CKD and chronic disease; okay to use Procrit despite likely prostate cancer imaging suggestive on bone metastasis; likely contributing to anemia transfusion support PRN f/u FOBT Status: Acute (2) Elevated PSA Assessment and Plan: 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 prior biopsy recommend urology evaluation; if no prostate biopsy to be done, recommend bone biopsy Thank you for this interesting consult. Status: Acute
[2017-09-30] MEDS: Albuterol-Ipratrop 3 mg / 0.5 (3 ml) UD INH SCH ×2 (13:53→20:21)
[2017-09-30] MEDS ORDERED: Albuterol-Ipratrop 3 mg / 0.5 (3 ml) UD INH SCH (14:00)
[2017-09-30 16:59] LABS: BASO # 0.1 K/uL (0.0-0.2); BASO % 1.2 % (0.0-2.0); EOS # 0.3 K/uL (0.0-0.7); EOS % 3.4 % (0.0-4.0); HEMOGLOBIN 8.7 g/dL (12.0-18.0); LYMPH # 1.3 K/uL (1.0-4.3); LYMPH % 13.8 % (20.0-40.0); MEAN CELL VOLUME 86.5 fL (80.0-94.0); MEAN CORPUSCULAR HEMOGLOBIN 29.6 pg (27.0-31.0); MEAN CORPUSCULAR HGB CONC 34.2 g/dL (33.0-37.0); MEAN PLATELET VOLUME 7.6 fL (7.2-11.7); MONO # 0.9 K/uL (0.0-0.8); MONO % 9.4 % (0.0-10.0); NEUT % 72.2 % (50.0-75.0); RBC 2.93 Mil/uL (4.40-5.90); RED CELL DISTRIBUTION WIDTH 14.7 % (11.5-14.5); WHITE BLOOD COUNT 9.7 K/uL (4.8-10.8)
[2017-09-30] MEDS ORDERED: Dorzolamide 2% Opht Sol 10ml OU SCH (18:00)
[2017-09-30] MEDS: (Lantus) Insulin Glargine, Recombinant SC SCH (21:39)
[2017-09-30] MEDS: Latanoprost 2.5 ml Opht Soln OS SCH (21:40)
[2017-10-01] MEDS: Albuterol-Ipratrop 3 mg / 0.5 (3 ml) UD INH SCH ×3 (01:38→13:05)
[2017-10-01] MEDS: Piperacill/Tazo 2.25gm in Dex 2.25 GM/50 ML BAG IVPB SCH ×4 (04:09→21:20)
[2017-10-01] MEDS: (Novolog) Insulin Aspart, Recombinant 100 u/ml 10 ml vial SC SCH ×4 (07:38→21:21)
[2017-10-01] MEDS: Multivitamin Vitamin B Complex (Nephro-Vite) Tab PO SCH (10:33)
[2017-10-01] MEDS: Saccharomyces Boulardi 250 mg Cap PO SCH ×2 (10:33→17:11)
[2017-10-01] MEDS: Magnesium Oxide 400 mg Tab UD PO SCH ×2 (10:33→17:11)
[2017-10-01] MEDS: Pantoprazole 40 mg EC Tab PO SCH (10:34)
[2017-10-01] MEDS: Timolol 0.25% Ophth SOLN OU SCH ×2 (10:34→21:21)
--- NOTE | 2017-10-01 10:41 | RAD ---
HISTORY: Pneumonia COMPARISON: 09/30/2017. FINDINGS: The right PICC line terminates in the SVC. LUNGS: The lungs are well inflated. There is mild pulmonary venous congestion. There is ill-defined airspace disease in the right lower lobe. PLEURA: No significant pleural effusion identified, no pneumothorax apparent. CARDIOVASCULAR: The heart remains enlarged. OSSEOUS STRUCTURES: No significant abnormalities. VISUALIZED UPPER ABDOMEN: Normal. OTHER FINDINGS: None. IMPRESSION: Right PICC line terminates in the SVC. Ill-defined airspace disease in the right lower lobe may represent atelectasis or pneumonia. Follow-up is advised. Persistent mild cardiomegaly and mild pulmonary venous congestion.
[2017-10-01 11:03] LABS: HEMOGLOBIN 8.7 g/dL (12.0-18.0); MEAN CELL VOLUME 87.1 fL (80.0-94.0); MEAN CORPUSCULAR HEMOGLOBIN 29.6 pg (27.0-31.0); MEAN PLATELET VOLUME 7.9 fL (7.2-11.7); RBC 2.94 Mil/uL (4.40-5.90); RED CELL DISTRIBUTION WIDTH 14.3 % (11.5-14.5); WHITE BLOOD COUNT 8.4 K/uL (4.8-10.8)
[2017-10-01] MEDS: Dorzolamide 2% Opht Sol 10ml OU SCH ×2 (11:05→17:11)
[2017-10-01 11:21] LABS: CALCIUM 7.8 mg/dl (8.6-10.4)
[2017-10-01] MEDS: Epoetin Alfa 10,000 unit/ml Dialysis SC SCH (16:40)
--- NOTE | 2017-10-01 17:03 | CP.PCM.PN ---
Subjective - Date & Time of Evaluation Date of Evaluation: 10/01/17 Time of Evaluation: 08:20 - Subjective Subjective: clinically same Objective - Vital Signs/Intake and Output Vital Signs (last 24 hours): Temp Pulse Resp BP Pulse Ox 98.7 F 76 20 132/69 95 10/01/17 16:22 10/01/17 16:22 10/01/17 16:22 10/01/17 16:22 10/01/17 16:22 Intake and Output: 10/01/17 10/01/17 06:59 18:59 Intake Total 550 700 Balance 550 700 - Medications Medications: Current Medications Albuterol/Ipratropium (Duoneb 3 Mg/0.5 Mg (3 Ml) Ud) 3 ml INH RQ6 [facility] Last Admin: 10/01/17 13:05 Dose: 3 ml Aspirin (Aspirin Chewable) 81 mg PO DAILY [facility] Last Admin: 10/01/17 10:33 Dose: 81 mg Carvedilol (Coreg) 3.125 mg PO BID [facility] Last Admin: 10/01/17 10:34 Dose: 3.125 mg Dorzolamide HCl (Trusopt) 0 ml OU BID [facility] Last Admin: 10/01/17 11:05 Dose: 1 drop Epoetin Jacob (Procrit) 10,000 unit SC MWF [facility] Last Admin: 10/01/17 16:40 Dose: 10,000 unit Ferrous Gluconate (Fergon) 324 mg PO TID [facility] Last Admin: 10/01/17 13:54 Dose: 324 mg Furosemide (Lasix) 40 mg PO DAILY [facility] Last Admin: 10/01/17 10:34 Dose: 40 mg Piperacillin Sod/Tazobactam Sod (Zosyn 2.25 Gm Iv Premix) 2.25 gm in 50 mls @ 100 mls/hr IVPB Q6H [facility] PRN Reason: Protocol Last Admin: 10/01/17 16:40 Dose: 100 mls/hr Sodium Chloride (Sodium Chloride 0.9%) 1,000 mls @ 50 mls/hr IV .Q20H [facility] Last Admin: 09/30/17 09:54 Dose: 50 mls/hr Insulin Aspart (Novolog) 0 unit SC ACHS [facility] PRN Reason: Protocol Last Admin: 10/01/17 16:41 Dose: 2 unit Insulin Glargine (Lantus) 10 unit SC HS [facility] Last Admin: 09/30/17 21:39 Dose: 10 units Latanoprost (Xalatan Opht) 1 ml OS HS [facility] Last Admin: 09/30/17 21:40 Dose: 1 ml Magnesium Oxide (Mag-Ox) 400 mg PO BID [facility] Last Admin: 10/01/17 10:33 Dose: 400 mg Pantoprazole Sodium (Protonix Ec Tab) 40 mg PO DAILY [facility] Last Admin: 10/01/17 10:34 Dose: 40 mg Rosuvastatin Calcium (Crestor) 5 mg PO HS [facility] Last Admin: 09/30/17 21:39 Dose: 5 mg Saccharomyces Boulardii (Florastor) 250 mg PO BID [facility] Last Admin: 10/01/17 10:33 Dose: 250 mg Sodium Bicarbonate (Sodium Bicarbonate Tab) 650 mg PO BID [facility] Last Admin: 10/01/17 10:33 Dose: 650 mg Tamsulosin HCl (Flomax) 0.4 mg PO DAILY [facility] Last Admin: 10/01/17 10:34 Dose: 0.4 mg Timolol Maleate (Timoptic 0.25% Ophth Soln) 1 drop OU Q12H [facility] Last Admin: 10/01/17 10:34 Dose: 1 drop Vitamin B Complex/Vit C/Folic Acid (Nephro-Fe) 1 tab PO 0800 [facility] Last Admin: 10/01/17 10:33 Dose: 1 tab - Labs Labs: 10/01/17 10:57 10/01/17 10:57 PT 15.6 SECONDS (9.7-12.2) H 09/30/17 00:35 INR 1.4 09/30/17 00:35 APTT 30 SECONDS (21-34) 09/30/17 00:35 - Constitutional Appears: Well - Head Exam Head Exam: ATRAUMATIC, NORMAL INSPECTION, NORMOCEPHALIC - Eye Exam Eye Exam: EOMI, Normal appearance, PERRL Pupil Exam: NORMAL ACCOMODATION, PERRL - ENT Exam ENT Exam: Mucous Membranes Moist, Normal Exam - Neck Exam Neck Exam: Full ROM, Normal Inspection. absent: Lymphadenopathy - Respiratory Exam Respiratory Exam: Decreased Breath Sounds - Cardiovascular Exam Cardiovascular Exam: REGULAR RHYTHM, +S1, +S2 - GI/Abdominal Exam GI & Abdominal Exam: Soft, Diminished Bowel Sounds - Rectal Exam Rectal Exam: Deferred
[2017-10-01] MEDS: Sodium Chloride 0.9% 1,000 ML IV SCH (17:14)
--- NOTE | 2017-10-01 21:16 | CP.PCM.PN ---
Subjective - Date & Time of Evaluation Date of Evaluation: 10/01/17 Time of Evaluation: 13:05 - Subjective Subjective: No complaints. Objective - Vital Signs/Intake and Output Vital Signs (last 24 hours): Temp Pulse Resp BP Pulse Ox 98.7 F 76 20 132/69 95 10/01/17 16:22 10/01/17 16:22 10/01/17 16:22 10/01/17 16:22 10/01/17 16:22 Intake and Output: 10/01/17 10/02/17 18:59 06:59 Intake Total 700 Balance 700 - Medications Medications: Current Medications Albuterol/Ipratropium (Duoneb 3 Mg/0.5 Mg (3 Ml) Ud) 3 ml INH RQ6 [facility] Last Admin: 10/01/17 13:05 Dose: 3 ml Aspirin (Aspirin Chewable) 81 mg PO DAILY [facility] Last Admin: 10/01/17 10:33 Dose: 81 mg Carvedilol (Coreg) 3.125 mg PO BID [facility] Last Admin: 10/01/17 17:11 Dose: 3.125 mg Dorzolamide HCl (Trusopt) 0 ml OU BID [facility] Last Admin: 10/01/17 17:11 Dose: 1 drop Epoetin Jacob (Procrit) 10,000 unit SC MWF [facility] Last Admin: 10/01/17 16:40 Dose: 10,000 unit Ferrous Gluconate (Fergon) 324 mg PO TID [facility] Last Admin: 10/01/17 17:11 Dose: 324 mg Furosemide (Lasix) 40 mg PO DAILY [facility] Last Admin: 10/01/17 10:34 Dose: 40 mg Piperacillin Sod/Tazobactam Sod (Zosyn 2.25 Gm Iv Premix) 2.25 gm in 50 mls @ 100 mls/hr IVPB Q6H [facility] PRN Reason: Protocol Last Admin: 10/01/17 16:40 Dose: 100 mls/hr Sodium Chloride (Sodium Chloride 0.9%) 1,000 mls @ 50 mls/hr IV .Q20H [facility] Last Admin: 10/01/17 17:14 Dose: 50 mls/hr Insulin Aspart (Novolog) 0 unit SC ACHS [facility] PRN Reason: Protocol Last Admin: 10/01/17 16:41 Dose: 2 unit Insulin Glargine (Lantus) 10 unit SC HS [facility] Last Admin: 09/30/17 21:39 Dose: 10 units Latanoprost (Xalatan Opht) 1 ml OS HS [facility] Last Admin: 09/30/17 21:40 Dose: 1 ml Magnesium Oxide (Mag-Ox) 400 mg PO BID [facility] Last Admin: 10/01/17 17:11 Dose: 400 mg Pantoprazole Sodium (Protonix Ec Tab) 40 mg PO DAILY [facility] Last Admin: 10/01/17 10:34 Dose: 40 mg Rosuvastatin Calcium (Crestor) 5 mg PO [facility] Last Admin: 09/30/17 21:39 Dose: 5 mg Saccharomyces Boulardii (Florastor) 250 mg PO BID [facility] Last Admin: 10/01/17 17:11 Dose: 250 mg Sodium Bicarbonate (Sodium Bicarbonate Tab) 650 mg PO BID [facility] Last Admin: 10/01/17 17:11 Dose: 650 mg Tamsulosin HCl (Flomax) 0.4 mg PO DAILY [facility] Last Admin: 10/01/17 10:34 Dose: 0.4 mg Timolol Maleate (Timoptic 0.25% Ophth Soln) 1 drop OU Q12H [facility] Last Admin: 10/01/17 10:34 Dose: 1 drop Vitamin B Complex/Vit C/Folic Acid (Nephro-Fe) 1 tab PO 0800 [facility] Last Admin: 10/01/17 10:33 Dose: 1 tab - Labs Labs: 10/01/17 10:57 10/01/17 10:57 PT 15.6 SECONDS (9.7-12.2) H 09/30/17 00:35 INR 1.4 09/30/17 00:35 APTT 30 SECONDS (21-34) 09/30/17 00:35 - Head Exam Head Exam: ATRAUMATIC - Eye Exam Eye Exam: Normal appearance - ENT Exam ENT Exam: Mucous Membranes Dry - Respiratory Exam Respiratory Exam: NORMAL BREATHING PATTERN - Cardiovascular Exam Cardiovascular Exam: +S1, +S2 - GI/Abdominal Exam GI & Abdominal Exam: Normal Bowel Sounds Assessment and Plan (1) Anemia Assessment & Plan: anemia of CKD and chronic disease; okay to use Procrit despite likely prostate cancer imaging suggestive on bone metastasis; likely contributing to anemia transfusion support PRN f/u FOBT Status: Acute (2) Elevated PSA Assessment & Plan: 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 prior biopsy recommend urology evaluation; if no prostate biopsy to be done, recommend bone biopsy Status: Acute
[2017-10-01] MEDS: Latanoprost 2.5 ml Opht Soln OS SCH (21:21)
[2017-10-01] MEDS: (Lantus) Insulin Glargine, Recombinant SC SCH (21:22)
--- NOTE | 2017-10-01 23:53 | CARD ---
APPROVED REPORT EKG Measurement Heart [id number] ID [id number] <Conclusion> Normal sinus rhythm Possible Left atrial enlargement T wave abnormality, consider anterior ischemia Abnormal ECG
[2017-10-02] MEDS: Albuterol-Ipratrop 3 mg / 0.5 (3 ml) UD INH SCH ×2 (01:42→21:14)
[2017-10-02] MEDS: Piperacill/Tazo 2.25gm in Dex 2.25 GM/50 ML BAG IVPB SCH ×4 (04:30→21:44)
[2017-10-02] MEDS: (Novolog) Insulin Aspart, Recombinant 100 u/ml 10 ml vial SC SCH ×3 (08:04→18:45)
[2017-10-02 08:34] LABS: MEAN CELL VOLUME 87.6 fL (80.0-94.0); MEAN CORPUSCULAR HEMOGLOBIN 30.3 pg (27.0-31.0); MEAN CORPUSCULAR HGB CONC 34.6 g/dL (33.0-37.0); MEAN PLATELET VOLUME 7.6 fL (7.2-11.7); RBC 2.97 Mil/uL (4.40-5.90); RED CELL DISTRIBUTION WIDTH 14.5 % (11.5-14.5); WHITE BLOOD COUNT 9.8 K/uL (4.8-10.8)
[2017-10-02] MEDS: Magnesium Oxide 400 mg Tab UD PO SCH ×2 (09:22→18:45)
[2017-10-02] MEDS: Pantoprazole 40 mg EC Tab PO SCH (09:23)
[2017-10-02] MEDS: Saccharomyces Boulardi 250 mg Cap PO SCH ×2 (09:23→18:45)
[2017-10-02] MEDS: Multivitamin Vitamin B Complex (Nephro-Vite) Tab PO SCH (09:23)
[2017-10-02] MEDS: Timolol 0.25% Ophth SOLN OU SCH ×2 (09:33→21:44)
[2017-10-02] MEDS: Dorzolamide 2% Opht Sol 10ml OU SCH ×2 (09:33→18:46)
[2017-10-02] MEDS: Ergocalciferol 50,000 Intl Units Cap PO SCH (10:45)
--- NOTE | 2017-10-02 13:21 | RAD ---
HISTORY: shortness of breath COMPARISON: 10/01/2017 FINDINGS: LUNGS: No active pulmonary disease. PLEURA: No significant pleural effusion identified, no pneumothorax apparent. CARDIOVASCULAR: Normal. OSSEOUS STRUCTURES: No significant abnormalities. VISUALIZED UPPER ABDOMEN: Normal. OTHER FINDINGS: None. IMPRESSION: No active disease.
--- NOTE | 2017-10-02 14:50 | CP.PCM.CON ---
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 fluid overload hx of DM, HTN Vit D def Plan No acute need for renal replacement therapy at this time. Maintain hemodynamics stable, avoid hypotension, Patient not on ACEI/ARB due to SHANNAN Monitor Input/Output, daily weights and renal function with basic metabolic panel continue with iron supplements, MVI and Flomax 0.4 mg once a day supplement with weekly vit D appreciate Heme evaluation Anemia management as per heme/onc. pt started on epogen stat cxr obtained. d/c IVF. d/w primary team and nurse to obtain bladder scan r/ o retention check renal sonogram likely pt will need indwelling garcia catheterization to relieve the obstruction and urology input Dose meds/antibiotics for reduced GFR. Avoid fleets enema/magnesium based laxatives. Avoid nephrotoxins/NSAIDs/ iodinated contrast (unless needed emergently) Glycemic control Further work up/management as per primary team Thanks for allowing me to participate in care of your patient. Will follow patient with you. Please call if any Qs. 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 pt seen by heme/onc. Denies OTC/herbal meds or NSAIDs No recent iodinated contrast exposure. No obvious episodes of low BP pt was seen in office recently ~ 2 weeks ago when his serum cr 2.3 and started on epogen for anemia and lasix for edema. ROS: Cardiovascular: No chest pain. Pulmonary: c/o shortness of breath and cough Gastrointestinal: denies abdominal pain No nausea. No vomiting. Genitourinary: has condom catheter All other negative except as mentioned in HPI. Physical Examination: General Appearance: uncomfortable, in mild respiratory distress, co-operative . Vitals reviewed and noted as below Head; Atraumatic, normocephalic ENT: no ulcers no thrush. Tongue is midline. Oropharynx: no rash or ulcers. EYES: Pupils are equal, round and reactive to light accommodation. Eye muscles and extraocular movement intact. Sclera is anicteric. Neck; supple no lymphadenopathy, no thyromegaly or bruit Lungs: Increased respiratory rate/effort. Breath sounds bilateral with crackles and audible rales Heart: Normal rate. s1s2 normal. No rub or gallop. Extremities: no edema. No varicose veins Neurological: Patient is alert, awake and No focal deficit. Strength bilateral appropriate and equal Skin: Warm and dry. Normal turgor. No rash. Palpitation: Normal elasticity for age Abdomen: Abdomen is soft. Bowel sounds +. There is no abdominal tenderness, no guarding/rigidity no organomegaly Psych: Limited insight insight and Flat affect/mood MSK: no joint tenderness or swelling. Digits and nails normal, no deformity : kidney not palpable but dullness over bladder area. has condom catheter Labs/imaging reviewed. Past medical history, past surgical history, family history, social history, allergy reviewed and noted as below Family hx: no hx of CKD. Rest non-contributory Renal sonogram severe bilateral hydronephrosis Urine protein creatinine ratio 2 gram Iron saturation 7% ferritin 198 Past Patient History - Infectious Disease Hx of Infectious Diseases: None - Past Medical History & Family History Past Medical History?: Yes - Past Social History Smoking Status: Never Smoked - CARDIAC Hx Hypertension: Yes - PULMONARY Hx Respiratory Disorders: No - NEUROLOGICAL Hx Neurological Disorder: No - HEENT Hx HEENT Problems: No - RENAL Hx Chronic Kidney Disease: No - ENDOCRINE/METABOLIC Hx Diabetes Mellitus Type 2: Yes - HEMATOLOGICAL/ONCOLOGICAL Hx Anemia: Yes - INTEGUMENTARY Hx Dermatological Problems: No - MUSCULOSKELETAL/RHEUMATOLOGICAL Hx Arthritis: Yes - GASTROINTESTINAL Hx Gastrointestinal Disorders: Yes Hx Gastroesophageal Reflux: Yes - GENITOURINARY/GYNECOLOGICAL Hx Prostate Problems: Yes - PSYCHIATRIC Hx Substance Use: No - SURGICAL HISTORY Hx Surgeries: Yes Other/Comment: Prostate - ANESTHESIA Hx Anesthesia: No Hx Anesthesia Reactions: No Hx Malignant Hyperthermia: No Meds Allergies/Adverse Reactions: Allergies Allergy/AdvReac Type Severity Reaction Status Date / Time No Known Allergies Allergy Verified 09/30/17 00:20 - Medications Medications: Current Medications Albuterol/Ipratropium (Duoneb 3 Mg/0.5 Mg (3 Ml) Ud) 3 ml INH RQ6 [facility] Last Admin: 10/02/17 01:42 Dose: 3 ml Aspirin (Aspirin Chewable) 81 mg PO DAILY [facility] Last Admin: 10/02/17 09:22 Dose: 81 mg Carvedilol (Coreg) 3.125 mg PO BID [facility] Last Admin: 10/02/17 09:23 Dose: 3.125 mg Dorzolamide HCl (Trusopt) 0 ml OU BID [facility] Last Admin: 10/02/17 09:33 Dose: 1 drop Epoetin Jacob (Procrit) 10,000 unit SC MWF [facility] Last Admin: 10/01/17 16:40 Dose: 10,000 unit Ergocalciferol (Drisdol 50,000 Intl Units Cap) 1 cap PO Q7D [facility] Last Admin: 10/02/17 10:45 Dose: 1 cap Ferrous Gluconate (Fergon) 324 mg PO TID [facility] Last Admin: 10/02/17 13:06 Dose: 324 mg Furosemide (Lasix) 40 mg PO DAILY [facility] Last Admin: 10/02/17 09:33 Dose: 40 mg Piperacillin Sod/Tazobactam Sod (Zosyn 2.25 Gm Iv Premix) 2.25 gm in 50 mls @ 100 mls/hr IVPB Q6H [facility] PRN Reason: Protocol Last Admin: 10/02/17 09:23 Dose: 100 mls/hr Insulin Aspart (Novolog) 0 unit SC ACHS [facility] PRN Reason: Protocol Last Admin: 10/02/17 12:07 Dose: 2 unit Insulin Glargine (Lantus) 10 unit SC HS [facility] Last Admin: 10/01/17 21:22 Dose: 10 units Latanoprost (Xalatan Opht) 1 ml OS HS [facility] Last Admin: 10/01/17 21:21 Dose: 1 ml Magnesium Oxide (Mag-Ox) 400 mg PO BID [facility] Last Admin: 10/02/17 09:22 Dose: 400 mg Pantoprazole Sodium (Protonix Ec Tab) 40 mg PO DAILY [facility] Last Admin: 10/02/17 09:23 Dose: 40 mg Rosuvastatin Calcium (Crestor) 5 mg PO HS [facility] Last Admin: 10/01/17 21:20 Dose: 5 mg Saccharomyces Boulardii (Florastor) 250 mg PO BID [facility] Last Admin: 10/02/17 09:23 Dose: 250 mg Sodium Bicarbonate (Sodium Bicarbonate Tab) 650 mg PO BID [facility] Last Admin: 10/01/17 17:11 Dose: 650 mg Tamsulosin HCl (Flomax) 0.4 mg PO DAILY [facility] Last Admin: 10/01/17 10:34 Dose: 0.4 mg Timolol Maleate (Timoptic 0.25% Ophth Soln) 1 drop OU Q12H [facility] Last Admin: 10/02/17 09:33 Dose: 1 drop Vitamin B Complex/Vit C/Folic Acid (Nephro-Fe) 1 tab PO 0800 [facility] Last Admin: 10/02/17 09:23 Dose: 1 tab Results - Vital Signs Recent Vital Signs: Last Vital Signs Temp 97.9 F 10/02/17 07:00 Pulse 68 10/02/17 07:00 Resp 20 10/02/17 07:00 BP 160/58 H 10/02/17 09:33 Pulse Ox 95 10/02/17 07:00 - Labs Result Diagrams: 10/02/17 08:25 10/02/17 08:25 Labs: Laboratory Results - last 24 hr 10/01/17 10/01/17 10/02/17 16:07 21:13 06:22 WBC RBC Hgb Hct MCV MCH MCHC RDW Plt Count MPV Sodium Potassium Chloride Carbon Dioxide Anion Gap BUN Creatinine Est GFR ( Amer) Est GFR (Non-Af Amer) POC Glucose (mg/dL) 161 H 168 H 58 L Random Glucose Calcium Phosphorus 25-OH Vitamin D Total 10/02/17 10/02/17 10/02/17 06:47 08:25 08:25 WBC 9.8 RBC 2.97 L Hgb 9.0 L Hct 26.0 L MCV 87.6 MCH 30.3 MCHC 34.6 RDW 14.5 Plt Count 300 MPV 7.6 Sodium 138 Potassium 5.1 Chloride 103 Carbon Dioxide 21 L Anion Gap 19 BUN 63 H Creatinine 4.3 H Est GFR ( Amer) 16 Est GFR (Non-Af Amer) 13 POC Glucose (mg/dL) 81 Random Glucose 78 Calcium 8.0 L Phosphorus 5.3 H 25-OH Vitamin D Total 10/02/17 10/02/17 08:25 11:06 WBC RBC Hgb Hct MCV MCH MCHC RDW Plt Count MPV Sodium Potassium Chloride Carbon Dioxide Anion Gap BUN Creatinine Est GFR ( Amer) Est GFR (Non-Af Amer) POC Glucose (mg/dL) 182 H Random Glucose Calcium Phosphorus 25-OH Vitamin D Total 20.0 L
[2017-10-02] MEDS ORDERED: Acetylcysteine 20% Inhal Soln (4ml) INH SCH (16:15)
--- NOTE | 2017-10-02 16:44 | CP.PCM.PN ---
Subjective - Date & Time of Evaluation Date of Evaluation: 10/02/17 Time of Evaluation: 08:40 - Subjective Subjective: clinically same Objective - Vital Signs/Intake and Output Vital Signs (last 24 hours): Temp Pulse Resp BP Pulse Ox 97.6 F 96 H 20 181/68 H 95 10/02/17 15:36 10/02/17 16:36 10/02/17 15:36 10/02/17 15:36 10/02/17 15:36 Intake and Output: 10/02/17 10/02/17 06:59 18:59 Intake Total 1000 Output Total 700 Balance 1000 -700 - Medications Medications: Current Medications Acetylcysteine (Acetylcysteine 20%) 4 ml INH RQ6 [facility] Albuterol/Ipratropium (Duoneb 3 Mg/0.5 Mg (3 Ml) Ud) 3 ml INH RQ6 [facility] Last Admin: 10/02/17 01:42 Dose: 3 ml Aspirin (Aspirin Chewable) 81 mg PO DAILY [facility] Last Admin: 10/02/17 09:22 Dose: 81 mg Carvedilol (Coreg) 3.125 mg PO BID [facility] Last Admin: 10/02/17 09:23 Dose: 3.125 mg Dorzolamide HCl (Trusopt) 0 ml OU BID [facility] Last Admin: 10/02/17 09:33 Dose: 1 drop Epoetin Jacob (Procrit) 10,000 unit SC MWF [facility] Last Admin: 10/01/17 16:40 Dose: 10,000 unit Ergocalciferol (Drisdol 50,000 Intl Units Cap) 1 cap PO Q7D [facility] Last Admin: 10/02/17 10:45 Dose: 1 cap Ferrous Gluconate (Fergon) 324 mg PO TID [facility] Last Admin: 10/02/17 13:06 Dose: 324 mg Furosemide (Lasix) 40 mg PO DAILY [facility] Last Admin: 10/02/17 09:33 Dose: 40 mg Piperacillin Sod/Tazobactam Sod (Zosyn 2.25 Gm Iv Premix) 2.25 gm in 50 mls @ 100 mls/hr IVPB Q6H [facility] PRN Reason: Protocol Last Admin: 10/02/17 16:11 Dose: 100 mls/hr Insulin Aspart (Novolog) 0 unit SC ACHS [facility] PRN Reason: Protocol Last Admin: 10/02/17 12:07 Dose: 2 unit Insulin Glargine (Lantus) 10 unit SC HS [facility] Last Admin: 10/01/17 21:22 Dose: 10 units Latanoprost (Xalatan Opht) 1 ml OS HS [facility] Last Admin: 10/01/17 21:21 Dose: 1 ml Magnesium Oxide (Mag-Ox) 400 mg PO BID [facility] Last Admin: 10/02/17 09:22 Dose: 400 mg Pantoprazole Sodium (Protonix Ec Tab) 40 mg PO DAILY [facility] Last Admin: 10/02/17 09:23 Dose: 40 mg Rosuvastatin Calcium (Crestor) 5 mg PO HS [facility] Last Admin: 10/01/17 21:20 Dose: 5 mg Saccharomyces Boulardii (Florastor) 250 mg PO BID [facility] Last Admin: 10/02/17 09:23 Dose: 250 mg Sodium Bicarbonate (Sodium Bicarbonate Tab) 650 mg PO BID [facility] Last Admin: 10/02/17 10:35 Dose: 650 mg Tamsulosin HCl (Flomax) 0.4 mg PO DAILY [facility] Last Admin: 10/02/17 10:35 Dose: 0.4 mg Timolol Maleate (Timoptic 0.25% Ophth Soln) 1 drop OU Q12H [facility] Last Admin: 10/02/17 09:33 Dose: 1 drop Vitamin B Complex/Vit C/Folic Acid (Nephro-Fe) 1 tab PO 0800 [facility] Last Admin: 10/02/17 09:23 Dose: 1 tab - Labs Labs: 10/02/17 08:25 10/02/17 08:25 PT 15.6 SECONDS (9.7-12.2) H 09/30/17 00:35 INR 1.4 09/30/17 00:35 APTT 30 SECONDS (21-34) 09/30/17 00:35 - Constitutional Appears: Well - Head Exam Head Exam: ATRAUMATIC, NORMAL INSPECTION, NORMOCEPHALIC - Eye Exam Eye Exam: EOMI, Normal appearance, PERRL Pupil Exam: NORMAL ACCOMODATION, PERRL - ENT Exam ENT Exam: Mucous Membranes Moist, Normal Exam - Neck Exam Neck Exam: Full ROM, Normal Inspection. absent: Lymphadenopathy - Respiratory Exam Respiratory Exam: Decreased Breath Sounds - Cardiovascular Exam Cardiovascular Exam: REGULAR RHYTHM, +S1, +S2 - GI/Abdominal Exam GI & Abdominal Exam: Soft, Diminished Bowel Sounds - Rectal Exam Rectal Exam: Deferred
--- NOTE | 2017-10-02 16:49 | US ---
PROCEDURE: Ultrasound of the Kidneys HISTORY: SHANNAN COMPARISON: None available. TECHNIQUE: Sonogram of the kidneys. FINDINGS: RIGHT KIDNEY: Measures: 12.5 cm. Diffusely increased cortical echogenicity. Moderate hydronephrosis. No calculus. No solid mass. Mid renal exophytic simple cyst, 2.0 x 2.2 x 2.3 cm. Lower pole exophytic simple cyst, 1.4 x 1.4 x 1.6 cm. LEFT KIDNEY: Measures: 13.2 cm. Diffusely increased cortical echogenicity. Mild hydronephrosis. No calculus. No solid mass. Exophytic lower pole simple cortical cyst, 1.0 x 1.0 x 1.2 cm. Exophytic mid renal cortical cyst, 1.7 x 3.0 x 3.1 cm. OTHER FINDINGS: Urinary bladder nondistended. Solid material seen within urinary bladder suggestive of a neoplasm. This measures roughly 8.3 x 8.8 x 10.3 cm. There is coarse calcifications seen within the mass. A Nair catheter is seen within the bladder lumen. Note is made of bilateral ureteral dilatation. IMPRESSION: Bilateral echogenic kidneys consistent with diffuse medical renal disease. Bilateral simple renal cortical cysts. Bilateral hydronephrosis. 10.3 cm solid bladder mass. Bilateral hydroureter.
[2017-10-02 17:18] LABS: ABG ALLEN TEST POS; ARTERIAL BLOOD GAS O2 SAT 89.6 % (95-98); ARTERIAL BLOOD GAS PCO2 53 mm/Hg (35-45); ARTERIAL BLOOD GAS PH 7.17 (7.35-7.45); ARTERIAL BLOOD GAS PO2 56 mm/Hg (80-100); ARTERIAL BLOOD GAS TCO2 20.9 mmol/L (22-28)
[2017-10-02] MEDS ORDERED: Naloxone 0.4 mg/ml Inj (Adult) IVP ONE (17:24)
[2017-10-02] MEDS ORDERED: Etomidate 20 mg/10ml Inj IV ONE (17:38)
[2017-10-02] MEDS ORDERED: Propofol 10 mg/ml Inj (20 ML) IV ONE (17:50)
[2017-10-02 17:52] LABS: ABG ALLEN TEST POS; ARTERIAL BLOOD GAS HCO3 17.1 mmol/L (21-28); ARTERIAL BLOOD GAS O2 SAT 100.3 % (95-98); ARTERIAL BLOOD GAS PCO2 42 mm/Hg (35-45); ARTERIAL BLOOD GAS PH 7.22 (7.35-7.45); ARTERIAL BLOOD GAS PO2 193 mm/Hg (80-100); ARTERIAL BLOOD GAS TCO2 18.5 mmol/L (22-28)
[2017-10-02] MEDS ORDERED: Propofol 10 mg/ml 1,000 MG/100 ML VIAL IV PRN (17:54)
--- NOTE | 2017-10-02 17:56 | CP.PCM.CON ---
History of Present Illness - History of Present Illness History of Present Illness: 87 year old male with a history of DM, HTN, elevated PSA with retroperitoneal lymphadenopathy and sclerotic bone lesions in 2017, admitted after being found to have a low hgb at the senior living. Patient had a rapid response today and was found to be in hypercapneic respiratory failure. Patient was intubated without sedation. Past medical history: DM, HTN, elevated PSA with retroperitoneal lymphadenopathy and sclerotic bone lesions in 2017 Family history: Denies hematologic and oncologic problems PMD: Dr Rayo Allergies: NKDA Medications: See MAR Surgical Hx: Cystoscopy OIU/Balloon dilitation insertion of garcia, hernia repair , prostatectomy Social Hx: Former smoker quit 30 years ago; denies EtOH and illicit drug use. Lives at home alone, has two daughters Review of Systems - Review of Systems Review of Systems: patient with altered mental status limited ROS obtained Past Patient History - Infectious Disease Hx of Infectious Diseases: None - Past Medical History & Family History Past Medical History?: Yes - Past Social History Smoking Status: Never Smoked - CARDIAC Hx Hypertension: Yes - PULMONARY Hx Respiratory Disorders: No - NEUROLOGICAL Hx Neurological Disorder: No - HEENT Hx HEENT Problems: No - RENAL Hx Chronic Kidney Disease: No - ENDOCRINE/METABOLIC Hx Diabetes Mellitus Type 2: Yes - HEMATOLOGICAL/ONCOLOGICAL Hx Anemia: Yes - INTEGUMENTARY Hx Dermatological Problems: No - MUSCULOSKELETAL/RHEUMATOLOGICAL Hx Arthritis: Yes - GASTROINTESTINAL Hx Gastrointestinal Disorders: Yes Hx Gastroesophageal Reflux: Yes - GENITOURINARY/GYNECOLOGICAL Hx Prostate Problems: Yes - PSYCHIATRIC Hx Substance Use: No - SURGICAL HISTORY Hx Surgeries: Yes Other/Comment: Prostate - ANESTHESIA Hx Anesthesia: No Hx Anesthesia Reactions: No Hx Malignant Hyperthermia: No Meds Allergies/Adverse Reactions: Allergies Allergy/AdvReac Type Severity Reaction Status Date / Time No Known Allergies Allergy Verified 09/30/17 00:20 - Medications Medications: Current Medications Albuterol/Ipratropium (Duoneb 3 Mg/0.5 Mg (3 Ml) Ud) 3 ml INH RQ6 [facility] Last Admin: 10/02/17 01:42 Dose: 3 ml Aspirin (Aspirin Chewable) 81 mg PO DAILY [facility] Last Admin: 10/02/17 09:22 Dose: 81 mg Carvedilol (Coreg) 3.125 mg PO BID [facility] Last Admin: 10/02/17 09:23 Dose: 3.125 mg Dorzolamide HCl (Trusopt) 0 ml OU BID [facility] Last Admin: 10/02/17 09:33 Dose: 1 drop Epoetin Jacob (Procrit) 10,000 unit SC MWF [facility] Last Admin: 10/01/17 16:40 Dose: 10,000 unit Ergocalciferol (Drisdol 50,000 Intl Units Cap) 1 cap PO Q7D [facility] Last Admin: 10/02/17 10:45 Dose: 1 cap Ferrous Gluconate (Fergon) 324 mg PO TID [facility] Last Admin: 10/02/17 13:06 Dose: 324 mg Furosemide (Lasix) 40 mg PO DAILY [facility] Last Admin: 10/02/17 09:33 Dose: 40 mg Piperacillin Sod/Tazobactam Sod (Zosyn 2.25 Gm Iv Premix) 2.25 gm in 50 mls @ 100 mls/hr IVPB Q6H [facility] PRN Reason: Protocol Last Admin: 10/02/17 16:11 Dose: 100 mls/hr Insulin Aspart (Novolog) 0 unit SC ACHS [facility] PRN Reason: Protocol Last Admin: 10/02/17 12:07 Dose: 2 unit Insulin Glargine (Lantus) 10 unit SC HS [facility] Last Admin: 10/01/17 21:22 Dose: 10 units Latanoprost (Xalatan Opht) 1 ml OS HS [facility] Last Admin: 10/01/17 21:21 Dose: 1 ml Magnesium Oxide (Mag-Ox) 400 mg PO BID [facility] Last Admin: 10/02/17 09:22 Dose: 400 mg Pantoprazole Sodium (Protonix Ec Tab) 40 mg PO DAILY [facility] Last Admin: 10/02/17 09:23 Dose: 40 mg Propofol (Diprivan) 30 mg IV ONCE ONE Stop: 10/02/17 17:51 Rosuvastatin Calcium (Crestor) 5 mg PO HS [facility] Last Admin: 10/01/17 21:20 Dose: 5 mg Saccharomyces Boulardii (Florastor) 250 mg PO BID [facility] Last Admin: 10/02/17 09:23 Dose: 250 mg Sodium Bicarbonate (Sodium Bicarbonate Tab) 650 mg PO BID [facility] Last Admin: 10/02/17 10:35 Dose: 650 mg Tamsulosin HCl (Flomax) 0.4 mg PO DAILY [facility] Last Admin: 10/02/17 10:35 Dose: 0.4 mg Timolol Maleate (Timoptic 0.25% Ophth Soln) 1 drop OU Q12H [facility] Last Admin: 10/02/17 09:33 Dose: 1 drop Vitamin B Complex/Vit C/Folic Acid (Nephro-Fe) 1 tab PO 0800 [facility] Last Admin: 10/02/17 09:23 Dose: 1 tab Physical Exam - Constitutional Appears: In Acute Distress, Cachectic - Head Exam Head Exam: NORMAL INSPECTION - Eye Exam Pupil Exam: PERRL - ENT Exam ENT Exam: Mucous Membranes Moist - Respiratory Exam Respiratory Exam: Decreased Breath Sounds, Rhonchi, Wheezes, Respiratory Distress - Cardiovascular Exam Cardiovascular Exam: Tachycardia, +S1, +S2, +S4, Systolic Murmur - GI/Abdominal Exam GI & Abdominal Exam: Soft - Extremities Exam Extremities exam: Positive for: joint swelling, pedal edema - Skin Skin Exam: Dry, Warm Results - Vital Signs Recent Vital Signs: Last Vital Signs Temp 97.6 F 10/02/17 15:36 Pulse 96 H 10/02/17 16:36 Resp 20 10/02/17 15:36 BP 171/85 H 10/02/17 17:27 Pulse Ox 95 10/02/17 15:36 - Labs Result Diagrams: 10/02/17 08:25 10/02/17 08:25 Labs: Laboratory Results - last 24 hr 10/01/17 10/02/17 10/02/17 21:13 06:22 06:47 WBC RBC Hgb Hct MCV MCH MCHC RDW Plt Count MPV Puncture Site pCO2 pO2 HCO3 ABG pH ABG Total CO2 ABG O2 Saturation ABG Base Excess Vijay Test ABG Potassium A-a O2 Difference Respiratory Index Glucose Lactate Liter Flow FiO2 Crit Value Called To Crit Value Called By Crit Value Read Back Blood Gas Notified Time Sodium Potassium Chloride Carbon Dioxide Anion Gap BUN Creatinine Est GFR ( Amer) Est GFR (Non-Af Amer) POC Glucose (mg/dL) 168 H 58 L 81 Random Glucose Calcium Phosphorus 25-OH Vitamin D Total Arterial Blood Potassium 10/02/17 10/02/17 10/02/17 08:25 08:25 08:25 WBC 9.8 RBC 2.97 L Hgb 9.0 L Hct 26.0 L MCV 87.6 MCH 30.3 MCHC 34.6 RDW 14.5 Plt Count 300 MPV 7.6 Puncture Site pCO2 pO2 HCO3 ABG pH ABG Total CO2 ABG O2 Saturation ABG Base Excess Vijay Test ABG Potassium A-a O2 Difference Respiratory Index Glucose Lactate Liter Flow FiO2 Crit Value Called To Crit Value Called By Crit Value Read Back Blood Gas Notified Time Sodium 138 Potassium 5.1 Chloride 103 Carbon Dioxide 21 L Anion Gap 19 BUN 63 H Creatinine 4.3 H Est GFR ( Amer) 16 Est GFR (Non-Af Amer) 13 POC Glucose (mg/dL) Random Glucose 78 Calcium 8.0 L Phosphorus 5.3 H 25-OH Vitamin D Total 20.0 L Arterial Blood Potassium 10/02/17 10/02/17 10/02/17 11:06 16:07 17:11 WBC RBC Hgb Hct MCV MCH MCHC RDW Plt Count MPV Puncture Site Rra pCO2 53 H pO2 56 L HCO3 17.0 L ABG pH 7.17 L* ABG Total CO2 20.9 L ABG O2 Saturation 89.6 L ABG Base Excess -9.5 L Vjiay Test Pos ABG Potassium 5.5 H A-a O2 Difference Respiratory Index Glucose 241 H Lactate 2.2 H Liter Flow 6.0 FiO2 Crit Value Called To Jeronimo murphy Crit Value Called By Horacio ferrara Crit Value Read Back Y Blood Gas Notified Time 1717 Sodium 133.0 Potassium Chloride 101.0 Carbon Dioxide Anion Gap BUN Creatinine Est GFR ( Amer) Est GFR (Non-Af Amer) POC Glucose (mg/dL) 182 H 180 H Random Glucose Calcium Phosphorus 25-OH Vitamin D Total Arterial Blood Potassium 5.5 H 10/02/17 10/02/17 17:46 17:48 WBC RBC Hgb Hct MCV MCH MCHC RDW Plt Count MPV Puncture Site Lra pCO2 42 pO2 193 H HCO3 17.1 L ABG pH 7.22 L ABG Total CO2 18.5 L ABG O2 Saturation 100.3 H ABG Base Excess -10.1 L Vijay Test Pos ABG Potassium 4.9 A-a O2 Difference 468.0 Respiratory Index 2.4 Glucose 206 H Lactate 1.7 Liter Flow FiO2 100.0 Crit Value Called To Crit Value Called By Crit Value Read Back Blood Gas Notified Time Sodium 137.0 Potassium Chloride 108.0 H Carbon Dioxide Anion Gap BUN Creatinine Est GFR ( Amer) Est GFR (Non-Af Amer) POC Glucose (mg/dL) 235 H Random Glucose Calcium Phosphorus 25-OH Vitamin D Total Arterial Blood Potassium 4.9 Assessment & Plan (1) Respiratory failure with hypoxia and hypercapnia Status: Acute Priority: High (2) Altered mental status Status: Acute - Assessment and Plan (Free Text) Assessment: Hypercapneic respiratory failure: GCS < 9, will intubate to protect airway and help intubate, to keep pH b/w 7.35-7.45, continue bronchodilators -AMS: obtain drufg tox, serum and urine, obtain CT head -suspect aspiration : start empirically vanco + zosyn + doxy -h/o anemia of chornic disease: check FOB, serial cbc and transfuse as need to keep hemodynamic stability -DVT ppx herpairn SQ -PUD ppx pepcid Patient's clinical condition requires ICU monitoring. Multipel diagnostic tests pending cc time 45 minutes excluding any time spent on procedures.
--- NOTE | 2017-10-02 18:20 | PCM.PROC ---
Procedures Attestation:: I certify that I have explained the specified Operation(s) or Procedure(s), risks, benefits and reasonable alternatives to the Patient and/or other person responsible. The opportunity was given to ask questions and all questions answered - Intubation Time Out Performed: No (rapid response) Sedative: None Laryngoscope: Sherlyn ET Tube Size: 7.5 ET Tube Uncuffed: No ET Tube Secured at Depth: 21 ET Tube Secured Locarion: Teeth ET Tube Placement Confirmation: Visualized Passing Through Cords, Breath Sounds Equal Bilaterally, No Breath Sounds Over Epigastrum, Confirmation w/Capnometry Patient Tolerated Procedure: Well Procedure Immediate Complications: None
[2017-10-02 18:27] LABS: BARBITURATES, UR NEGATIVE (NEGATIVE); BENZODIAZEPINES, UR NEGATIVE (NEGATIVE); OPIATES, UR NEGATIVE (NEGATIVE); PHENCYCLIDINE, UR NEGATIVE (NEGATIVE)
--- NOTE | 2017-10-02 18:47 | RAD ---
HISTORY: Post intubation. COMPARISON: October 02, 2017. 13:10. FINDINGS: LUNGS: Eight multifocal infiltrates PLEURA: No significant pleural effusion identified, no pneumothorax apparent. CARDIOVASCULAR: Normal. OSSEOUS STRUCTURES: No significant abnormalities. VISUALIZED UPPER ABDOMEN: Normal. OTHER FINDINGS: Nasogastric tube in satisfactory position. The tip of the endotracheal tube appears above the clavicles (3.6 cm). IMPRESSION: High endotracheal tube. Satisfactory position of recently placed nasogastric tube
--- NOTE | 2017-10-02 18:50 | CT ---
PROCEDURE: CT HEAD WITHOUT CONTRAST. HISTORY: Altered mental status change COMPARISON: 09/04/2017 CT head TECHNIQUE: Axial computed tomography images were obtained through the head/brain without intravenous contrast. Coronal and sagittal reconstructed images. Radiation dose: Total exam DLP = 1206.11 mGy-cm. This CT exam was performed using one or more of the following dose reduction techniques: Automated exposure control, adjustment of the mA and/or kV according to patient size, and/or use of iterative reconstruction technique. FINDINGS: HEMORRHAGE: No intracranial hemorrhage. BRAIN: No mass effect or edema. Cortical and cerebellar atrophy, periventricular small vessel disease. VENTRICLES: Unremarkable. No hydrocephalus. CALVARIUM: Unremarkable. PARANASAL SINUSES: Chronic ethmoid air cell disease. MASTOID AIR CELLS: Unremarkable as visualized. No inflammatory changes. OTHER FINDINGS: Incompletely visualized endotracheal tube. IMPRESSION: No acute intracranial abnormalities. No significant findings to account for the clinical presentation. No significant interval change compared to the prior examination(s).
--- NOTE | 2017-10-02 18:55 | CT ---
PROCEDURE: CT Chest without contrast HISTORY: R/o aspiration COMPARISON: 10/17/2016 CT thorax TECHNIQUE: Contiguous axial images were obtained through the chest without intravenous contrast enhancement. Sagittal and coronal reconstructions were performed. Radiation dose (DLP): 578.61 mGy-cm. This CT exam was performed using one or more of the following dose reduction techniques: Automated exposure control, adjustment of the mA and/or kV according to patient size, and/or use of iterative reconstruction technique. FINDINGS: LUNGS: Faint multifocal infiltrates bilaterally. These involve primarily the lung bases although lingular and left upper lobe disease also identified. No suspicious pulmonary nodules, masses or infiltrates. MEDIASTINUM: Unremarkable thoracic aorta. No aneurysm. No radiographic findings to suggest acute or significant cardiovascular disease. Main pulmonary artery unremarkable. No vascular congestion. No lymphadenopathy. PLEURA: Trace bilateral pleural effusions. BONES: Sclerotic metastatic disease lower thoracic and upper lumbar spine. Progressive findings compared to the prior CT scan 10/17/2016 UPPER ABDOMEN: Incompletely visualize dilated collecting systems bilaterally OTHER FINDINGS: Poorly positioned endotracheal tube above the thoracic inlet. Nasogastric tube identified in satisfactory position in stomach. PICC line in satisfactory position . IMPRESSION: Poorly positioned endotracheal tube. The tip is above the thoracic inlet. Satisfactory position of nasogastric tube and PICC line Trace bilateral pleural effusions. Faint multifocal (small) alveolar infiltrates. Progressive osseous metastatic disease.
--- NOTE | 2017-10-02 19:01 | PCM.RRT ---
<Lala Champagne - Last Filed: 10/02/17 18:46> [employer] Nurses Assessment - Situation Date: 10/02/17 Time [employer]SEMBLER was called: 17:30 [employer]ER Responder Arrival Time:: 17:31 [employer] Location:: Med/Surg Room Number: 565A [employer] Reason for Call: Respiratory Distress, Not Responding to Urgent Treatment, Looks Sicker [employer]ER Called By: RN - IV IV Inserted during P[employer]ICATOR AND ASSEMBLER?: No - Respiratory [employer]ER Delivery Method: Intubated Was the Patient Intubated?: Yes (7.5) - Medication Medications Administered During [employer]BLER: Ativan. Diprivan - Diagnostic Test Ordered EKG: No Chest X-Ray: Yes CT Scan: Yes (Head) - Stat Labs Ordered [employer]BLER Stat Labs Ordered: ABG [employer]ER Other Labs Ordered: urine drug screen CPR started during [employer]ATOR AND ASSEMBLER?: No - Vital Signs Vital Signs: Rapid Response Vital Sign Blood Pressure 171/85 Pulse Rate 113 Respiratory Rate 36 Oxygen Saturation 93 - Time [employer]BLER Ended Time [employer]ER Ended: 18:05 - Vital Signs at end of [employer]ER Vital Signs at end of [employer]BLER: Rapid Response End Vital Sign Blood Pressure 140/66 Pulse Rate 67 Respiratory Rate 30 - Respiratory Oxygen Delivery Method: Intubated - Constitutional Appears: In Acute Distress, Confused - Head Head Exam: ATRAUMATIC, NORMAL INSPECTION, NORMOCEPHALIC - Eyes Eye Exam: EOMI, Normal appearance - Respiratory Exam Respiratory Exam: Decreased Breath Sounds, Rales, Rhonchi, Respiratory Distress - Cardiovascular Exam Cardiovascular Exam: REGULAR RHYTHM, RRR, +S1, +S2 - GI/Abdominal Exam GI & Abdominal Exam: Soft. absent: Tenderness - Neurological Exam Neurological Exam: Altered - Extremities Exam Extremities Exam: Normal Inspection Plan - Assessment of Findings&Treatment Plan Patient found to be in respiratory distress with labored breathing. ABG was done with pH found to be 7.17, pO2 56, CO2 53. Patient was intubated and 20mg Atomadate given. Patient then given 2mg Ativan because he was still awake and agitated. Repeat ABG ordered, lactic acid, urine drug screen ordered, CT head without contrast ordered, and cxray ordered. Diprivan 30mg given and Propofol drip to be started in ICU. Patient tolerating intubation and transferred to ICU. <Vicki Masters - Last Filed: 10/03/17 16:48> [employer] Nurses Assessment - Vital Signs Vital Signs: Rapid Response Vital Sign Blood Pressure 171/85 Pulse Rate 113 Respiratory Rate 36 Oxygen Saturation 93 - Vital Signs at end of [employer]ER Vital Signs at end of [employer]BLER: Rapid Response End Vital Sign Blood Pressure 140/66 Pulse Rate 67 Respiratory Rate 30 Attending/Attestation - Attestation I have personally seen and examined this patient.: Yes I have fully participated in the care of the patient.: Yes I have reviewed all pertinent clinical information, including history, physical exam and plan: Yes Notes (Text): Patient was seen and examined during the rapid response. I agree with the resident's documentation.
[2017-10-02] MEDS: Dexmedetomidine Hydrochloride 200 MCG in Sodium Chloride 0.9% 48 ML IV PRN (19:50)
[2017-10-02 20:04] VITALS: BMI 22.4
[2017-10-02 20:56] LABS: URINE BACTERIA OCC (<OCC); URINE BILIRUBIN NEGATIVE (NEGATIVE); URINE BLOOD 3+ (NEGATIVE); URINE CLARITY Hazy (Clear); URINE COLOR Yellow (YELLOW); URINE GLUCOSE (UA) 2+ mg/dL (Normal); URINE LEUKOCYTE ESTERASE 2+ Leu/uL (Negative); URINE PROTEIN 2+ mg/dL (NEGATIVE); URINE UROBILINOGEN NORMAL mg/dL (0.2-1.0)
[2017-10-02] MEDS: Latanoprost 2.5 ml Opht Soln OS SCH (21:44)
[2017-10-02] MEDS: (Lantus) Insulin Glargine, Recombinant SC SCH (21:44)
[2017-10-03] MEDS: (Novolog) Insulin Aspart, Recombinant 100 u/ml 10 ml vial SC SCH ×4 (00:17→18:30)
[2017-10-03] MEDS: Albuterol-Ipratrop 3 mg / 0.5 (3 ml) UD INH SCH ×4 (01:10→20:17)
[2017-10-03] MEDS: Dexmedetomidine Hydrochloride 200 MCG in Sodium Chloride 0.9% 48 ML IV PRN (03:33)
[2017-10-03] MEDS: Piperacill/Tazo 2.25gm in Dex 2.25 GM/50 ML BAG IVPB SCH ×4 (03:33→21:06)
[2017-10-03 05:39] LABS: ARTERIAL BLOOD GAS HCO3 23.4 mmol/L (21-28); ARTERIAL BLOOD GAS HEMOGLOBIN 9.2 g/dL (11.7-17.4); ARTERIAL BLOOD GAS O2 SAT 99.2 % (95-98); ARTERIAL BLOOD GAS PCO2 31 mm/Hg (35-45); ARTERIAL BLOOD GAS PH 7.45 (7.35-7.45); ARTERIAL BLOOD GAS PO2 107 mm/Hg (80-100); ARTERIAL BLOOD GAS TCO2 22.5 mmol/L (22-28)
[2017-10-03 05:59] LABS: BASO # 0.1 K/uL (0.0-0.2); BASO % 1.1 % (0.0-2.0); EOS # 0.1 K/uL (0.0-0.7); EOS % 0.8 % (0.0-4.0); HEMOGLOBIN 8.9 g/dL (12.0-18.0); LYMPH # 1.1 K/uL (1.0-4.3); LYMPH % 10.8 % (20.0-40.0); MEAN CELL VOLUME 87.4 fL (80.0-94.0); MEAN CORPUSCULAR HEMOGLOBIN 29.6 pg (27.0-31.0); MEAN CORPUSCULAR HGB CONC 33.8 g/dL (33.0-37.0); MEAN PLATELET VOLUME 7.7 fL (7.2-11.7); MONO % 9.8 % (0.0-10.0); NEUT # 7.7 K/uL (1.8-7.0); NEUT % 77.5 % (50.0-75.0); RBC 3.01 Mil/uL (4.40-5.90); RED CELL DISTRIBUTION WIDTH 14.3 % (11.5-14.5); WHITE BLOOD COUNT 9.9 K/uL (4.8-10.8)
[2017-10-03 06:24] LABS: CALCIUM 8.1 mg/dl (8.6-10.4)
[2017-10-03] MEDS: Multivitamin Vitamin B Complex (Nephro-Vite) Tab PO SCH (07:42)
--- NOTE | 2017-10-03 08:16 | RAD ---
HISTORY: INTUBATED COMPARISON: 10/02/2017. FINDINGS: The endotracheal tube terminates 3 cm proximal to the nichol. The nasogastric tube terminates in the stomach. The right PICC line terminates at the cavoatrial junction. LUNGS: The lungs are well inflated. There is interval improved aeration in both lungs with residual patchy airspace disease in the lingula and both lower lobes. PLEURA: No significant pleural effusion identified, no pneumothorax apparent. CARDIOVASCULAR: Normal. OSSEOUS STRUCTURES: No significant abnormalities. VISUALIZED UPPER ABDOMEN: Normal. OTHER FINDINGS: None. IMPRESSION: Improving presumable multifocal pneumonia in the lungs with residual airspace disease in both lower lobes and lingula. Stable position of support line and tubes.
[2017-10-03] MEDS: MethylPREDNISolone 40 mg Vial IVP SCH ×3 (09:27→21:07)
--- NOTE | 2017-10-03 10:01 | CP.CCUPN ---
<Vincent Will S - Last Filed: 10/03/17 09:43> CCU Subjective - Physician Review Subjective (Free Text): 10/03/17 09:44 Patient seen and examined. Patient is intubated and sedated on Precedex. No acute events noted. CCU Objective - Vital Signs / Intake & Output Vital Signs (Last 4 hours): Vital Signs Temp Pulse Resp BP Pulse Ox 10/03/17 09:00 58 L 16 99 10/03/17 08:30 62 29 H 94 L 10/03/17 08:21 126/57 L 10/03/17 08:14 61 31 H 126/57 L 95 10/03/17 08:00 98.7 F 77 20 97 10/03/17 07:30 69 35 H 100 10/03/17 07:15 60 28 H 118/49 L 100 10/03/17 07:00 65 14 100 10/03/17 06:30 59 L 32 H 100 10/03/17 06:15 57 L 29 H 108/49 L 100 10/03/17 06:00 59 L 30 H 100 Intake and Output (Last 8hrs): Intake & Output 10/02/17 10/03/17 10/03/17 22:59 06:59 14:59 Intake Total 166.9 277.0 100.5 Output Total 780 970 Balance -613.1 -693.0 100.5 Weight 156 lb 156 lb Intake: IV 11 39 Intake, IV Amount 65.9 78.0 10.5 Left Forearm 50 50 Right PICC 15.9 28.0 10.5 Oral 50 Tube Feeding 30 110 40 Other 60 50 Output: Urine 780 950 Urethral (Nair) 780 950 Emesis 20 Other: # Bowel Movements 0 0 - Physical Exam Head: Positive for: Atraumatic, Normocephalic Pupils: Positive for: Sluggish Conjunctiva: Positive for: Normal Mouth: Positive for: Moist Mucous Membranes, Other (Endotracheal tube and OGT in place) Respiratory/Chest: Positive for: Clear to Auscultation. Negative for: Wheezes, Rales, Rhonchi Abdomen: Positive for: Normal Bowel Sounds. Negative for: Tenderness Upper Extremity: Negative for: Edema Lower Extremity: Negative for: Edema Skin: Positive for: Warm, Dry - Medications Active Medications: Active Medications Generic Name Dose Route Start Last Admin Trade Name Freq PRN Reason Stop Dose Admin Albuterol/Ipratropium 3 ml 09/30/17 14:00 10/03/17 08:39 Duoneb 3 Mg/0.5 Mg (3 Ml) Ud INH 3 ml RQ6 MOISES Administration Aspirin 81 mg 09/30/17 10:00 10/02/17 09:22 Aspirin Chewable PO 81 mg DAILY MOISES Administration Carvedilol 3.125 mg 09/30/17 10:00 10/02/17 09:23 Coreg PO 3.125 mg BID MOISES Administration Dorzolamide HCl 0 ml 10/01/17 10:00 10/02/17 18:46 Trusopt OU 1 drop BID MOISES Administration Epoetin Jacob 10,000 unit 10/01/17 16:00 10/01/17 16:40 Procrit SC 10,000 unit MWF MOISES Administration Ergocalciferol 1 cap 10/02/17 10:30 10/02/17 10:45 Drisdol 50,000 Intl Units Cap PO 1 cap Q7D MOISES Administration Ferrous Gluconate 324 mg 09/30/17 10:00 10/02/17 18:44 Fergon PO 324 mg TID MOISES Administration Furosemide 40 mg 09/30/17 10:00 10/03/17 09:26 Lasix PO Not Given DAILY [facility] Piperacillin Sod/Tazobactam Sod 2.25 gm in 50 mls @ 100 mls/hr 09/30/17 10:00 10/03/17 03:33 Zosyn 2.25 Gm Iv Premix IVPB 100 mls/hr Q6H MOISES Administration Protocol Dexmedetomidine HCl 200 mcg/ 50 mls @ 4.53 mls/hr 10/02/17 19:30 10/03/17 03: 33 Sodium Chloride IV 0.2 mcg/kg/hr TITR PRN 4.53 mls/hr Agitation Administration Protocol 0.2 MCG/KG/HR Insulin Aspart 0 unit 10/03/17 00:00 10/03/17 05:31 Novolog SC Not Given Q6H [facility] Protocol Insulin Glargine 10 unit 09/30/17 22:00 10/02/17 21:44 Lantus SC 10 units HS MOISES Administration Latanoprost 1 ml 09/30/17 22:00 10/02/17 21:44 Xalatan Opht OS 1 ml HS MOISES Administration Magnesium Oxide 400 mg 09/30/17 10:00 10/02/17 18:45 Mag-Ox PO 400 mg BID MOISES Administration Methylprednisolone 40 mg 10/03/17 10:00 10/03/17 09:27 Solu-Medrol IVP Not Given Q6H [facility] Montelukast Sodium 10 mg 10/03/17 22:00 Singulair PO HS [facility] Pantoprazole Sodium 40 mg 10/03/17 10:00 Protonix Susp PO DAILY [facility] Rosuvastatin Calcium 5 mg 09/30/17 22:00 10/02/17 21:45 Crestor PO 5 mg HS [facility] Administration Saccharomyces Boulardii 250 mg 09/30/17 10:00 10/02/17 18:45 Florastor PO 250 mg BID [facility] Administration Sodium Bicarbonate 650 mg 09/30/17 10:00 10/02/17 10:35 Sodium Bicarbonate Tab PO 650 mg BID [facility] Administration Tamsulosin HCl 0.4 mg 09/30/17 10:00 10/02/17 10:35 Flomax PO 0.4 mg DAILY [facility] Administration Timolol Maleate 1 drop 09/30/17 09:45 10/02/17 21:44 Timoptic 0.25% Ophth Soln OU 1 drop Q12H [facility] Administration Vitamin B Complex/Vit C/Folic Acid 1 tab 10/01/17 08:00 10/03/17 07:42 Nephro-Fe PO 1 tab 0800 MOISES Administration - Patient Studies Lab Studies: Microbiology Studies 10/02/17 21:46 Urine Culture - Final Urine,Nair No Growth (<1,000 CFU/ML) 10/02/17 21:46 Gram Stain - Final Trachasp Lab Studies 10/03/17 10/03/17 10/03/17 Range/Units 05:49 05:48 05:27 WBC 9.9 (4.8-10.8) K/uL RBC 3.01 L (4.40-5.90) Mil/uL Hgb 8.9 L (12.0-18.0) g/dL Hct 26.3 L (35.0-51.0) % MCV 87.4 (80.0-94.0) fL MCH 29.6 (27.0-31.0) pg MCHC 33.8 (33.0-37.0) g/dL RDW 14.3 (11.5-14.5) % Plt Count 315 (130-400) K/uL MPV 7.7 (7.2-11.7) fL Neut % (Auto) 77.5 H (50.0-75.0) % Lymph % (Auto) 10.8 L (20.0-40.0) % Worth % (Auto) 9.8 (0.0-10.0) % Eos % (Auto) 0.8 (0.0-4.0) % Baso % (Auto) 1.1 (0.0-2.0) % Neut # (Auto) 7.7 H (1.8-7.0) K/uL Lymph # (Auto) 1.1 (1.0-4.3) K/uL Worth # (Auto) 1.0 H (0.0-0.8) K/uL Eos # (Auto) 0.1 (0.0-0.7) K/uL Baso # (Auto) 0.1 (0.0-0.2) K/uL Puncture Site pCO2 (35-45) mm/Hg pO2 (80-100) mm/Hg HCO3 (21-28) mmol/L ABG pH (7.35-7.45) ABG Total CO2 (22-28) mmol/L ABG O2 Saturation (95-98) % ABG Base Excess (-2.0-3.0) mmol/L ABG Hemoglobin (11.7-17.4) g/dL ABG Carboxyhemoglobin (0.5-1.5) % POC ABG HHb (Measured) (0.0-5.0) % ABG Methemoglobin (0.0-3.0) % Vijay Test ABG Potassium (3.6-5.2) mmol/L A-a O2 Difference mm/Hg Respiratory Index Hgb O2 Saturation (95.0-98.0) % Sodium 139 (132-148) mmol/l Chloride 101 (98-107) mmol/L Glucose (75-110) mg/dl Lactate (0.7-2.1) mmol/L Liter Flow Vent Mode Mechanical Rate FiO2 % PEEP Crit Value Called To Crit Value Called By Crit Value Read Back Blood Gas Notified Time Potassium 5.4 H (3.6-5.2) mmol/L Carbon Dioxide 21 L (22-30) mmol/L Anion Gap 22 H (10-20) BUN 66 H (9-20) mg/dL Creatinine 4.6 H (0.8-1.5) mg/dL Est GFR ( Amer) 15 Est GFR (Non-Af Amer) 12 POC Glucose (mg/dL) 148 H (65-110) mg/dL Random Glucose 136 H (75-110) mg/dL Lactic Acid (0.7-2.1) mmol/L Calcium 8.1 L (8.6-10.4) mg/dl Phosphorus 5.8 H (2.5-4.5) mg/dL Magnesium 2.3 (1.6-2.3) mg/dL Arterial Blood Potassium (3.6-5.2) mmol/L Urine Color (YELLOW) Urine Clarity (Clear) Urine pH (5.0-8.0) Ur Specific [place] (1.003-1.030) Urine Protein (NEGATIVE) mg/dL Urine Glucose (UA) (Normal) mg/dL Urine Ketones (NEGATIVE) mg/dL Urine Blood (NEGATIVE) Urine Nitrate (NEGATIVE) Urine Bilirubin (NEGATIVE) Urine Urobilinogen (0.2-1.0) mg/dL Ur Leukocyte Esterase (Negative) Crispin/uL Urine WBC (Auto) (0-5) /hpf Urine RBC (Auto) (0-3) /hpf Urine Bacteria (<OCC) Urine Opiates Screen (NEGATIVE) Urine Methadone Screen (NEGATIVE) Ur Barbiturates Screen (NEGATIVE) Ur Phencyclidine Scrn (NEGATIVE) Ur Amphetamines Screen (NEGATIVE) U Benzodiazepines Scrn (NEGATIVE) U Oth Cocaine Metabols (NEGATIVE) U Cannabinoids Screen (NEGATIVE) 10/03/17 10/03/17 10/02/17 Range/Units 05:24 00:14 23:26 WBC (4.8-10.8) K/uL RBC (4.40-5.90) Mil/uL Hgb (12.0-18.0) g/dL Hct (35.0-51.0) % MCV (80.0-94.0) fL MCH (27.0-31.0) pg MCHC (33.0-37.0) g/dL RDW (11.5-14.5) % Plt Count (130-400) K/uL MPV (7.2-11.7) fL Neut % (Auto) (50.0-75.0) % Lymph % (Auto) (20.0-40.0) % Worth % (Auto) (0.0-10.0) % Eos % (Auto) (0.0-4.0) % Baso % (Auto) (0.0-2.0) % Neut # (Auto) (1.8-7.0) K/uL Lymph # (Auto) (1.0-4.3) K/uL Worth # (Auto) (0.0-0.8) K/uL Eos # (Auto) (0.0-0.7) K/uL Baso # (Auto) (0.0-0.2) K/uL Puncture Site Rra pCO2 31 L (35-45) mm/Hg pO2 107 H (80-100) mm/Hg HCO3 23.4 (21-28) mmol/L ABG pH 7.45 (7.35-7.45) ABG Total CO2 22.5 (22-28) mmol/L ABG O2 Saturation 99.2 H (95-98) % ABG Base Excess -2.0 (-2.0-3.0) mmol/L ABG Hemoglobin 9.2 L (11.7-17.4) g/dL ABG Carboxyhemoglobin 1.5 (0.5-1.5) % POC ABG HHb (Measured) 0.8 (0.0-5.0) % ABG Methemoglobin 0.9 (0.0-3.0) % Vijay Test Na ABG Potassium (3.6-5.2) mmol/L A-a O2 Difference 211.0 mm/Hg Respiratory Index 2.0 Hgb O2 Saturation 96.7 (95.0-98.0) % Sodium (132-148) mmol/l Chloride (98-107) mmol/L Glucose (75-110) mg/dl Lactate (0.7-2.1) mmol/L Liter Flow Vent Mode A/c pc Mechanical Rate 12 FiO2 50.0 % PEEP 5 Crit Value Called To Crit Value Called By Crit Value Read Back Blood Gas Notified Time Potassium (3.6-5.2) mmol/L Carbon Dioxide (22-30) mmol/L Anion Gap (10-20) BUN (9-20) mg/dL Creatinine (0.8-1.5) mg/dL Est GFR ( Amer) Est GFR (Non-Af Amer) POC Glucose (mg/dL) 186 H (65-110) mg/dL Random Glucose (75-110) mg/dL Lactic Acid 1.0 (0.7-2.1) mmol/L Calcium (8.6-10.4) mg/dl Phosphorus (2.5-4.5) mg/dL Magnesium (1.6-2.3) mg/dL Arterial Blood Potassium (3.6-5.2) mmol/L Urine Color (YELLOW) Urine Clarity (Clear) Urine pH (5.0-8.0) Ur Specific [place] (1.003-1.030) Urine Protein (NEGATIVE) mg/dL Urine Glucose (UA) (Normal) mg/dL Urine Ketones (NEGATIVE) mg/dL Urine Blood (NEGATIVE) Urine Nitrate (NEGATIVE) Urine Bilirubin (NEGATIVE) Urine Urobilinogen (0.2-1.0) mg/dL Ur Leukocyte Esterase (Negative) Crispin/uL Urine WBC (Auto) (0-5) /hpf Urine RBC (Auto) (0-3) /hpf Urine Bacteria (<OCC) Urine Opiates Screen (NEGATIVE) Urine Methadone Screen (NEGATIVE) Ur Barbiturates Screen (NEGATIVE) Ur Phencyclidine Scrn (NEGATIVE) Ur Amphetamines Screen (NEGATIVE) U Benzodiazepines Scrn (NEGATIVE) U Oth Cocaine Metabols (NEGATIVE) U Cannabinoids Screen (NEGATIVE) 10/02/17 10/02/17 10/02/17 Range/Units 20:43 17:52 17:48 WBC (4.8-10.8) K/uL RBC (4.40-5.90) Mil/uL Hgb (12.0-18.0) g/dL Hct (35.0-51.0) % MCV (80.0-94.0) fL MCH (27.0-31.0) pg MCHC (33.0-37.0) g/dL RDW (11.5-14.5) % Plt Count (130-400) K/uL MPV (7.2-11.7) fL Neut % (Auto) (50.0-75.0) % Lymph % (Auto) (20.0-40.0) % Worth % (Auto) (0.0-10.0) % Eos % (Auto) (0.0-4.0) % Baso % (Auto) (0.0-2.0) % Neut # (Auto) (1.8-7.0) K/uL Lymph # (Auto) (1.0-4.3) K/uL Worth # (Auto) (0.0-0.8) K/uL Eos # (Auto) (0.0-0.7) K/uL Baso # (Auto) (0.0-0.2) K/uL Puncture Site pCO2 (35-45) mm/Hg pO2 (80-100) mm/Hg HCO3 (21-28) mmol/L ABG pH (7.35-7.45) ABG Total CO2 (22-28) mmol/L ABG O2 Saturation (95-98) % ABG Base Excess (-2.0-3.0) mmol/L ABG Hemoglobin (11.7-17.4) g/dL ABG Carboxyhemoglobin (0.5-1.5) % POC ABG HHb (Measured) (0.0-5.0) % ABG Methemoglobin (0.0-3.0) % Vijay Test ABG Potassium (3.6-5.2) mmol/L A-a O2 Difference mm/Hg Respiratory Index Hgb O2 Saturation (95.0-98.0) % Sodium (132-148) mmol/l Chloride (98-107) mmol/L Glucose (75-110) mg/dl Lactate (0.7-2.1) mmol/L Liter Flow Vent Mode Mechanical Rate FiO2 % PEEP Crit Value Called To Crit Value Called By Crit Value Read Back Blood Gas Notified Time Potassium (3.6-5.2) mmol/L Carbon Dioxide (22-30) mmol/L Anion Gap (10-20) BUN (9-20) mg/dL Creatinine (0.8-1.5) mg/dL Est GFR ( Amer) Est GFR (Non-Af Amer) POC Glucose (mg/dL) 235 H (65-110) mg/dL Random Glucose (75-110) mg/dL Lactic Acid (0.7-2.1) mmol/L Calcium (8.6-10.4) mg/dl Phosphorus (2.5-4.5) mg/dL Magnesium (1.6-2.3) mg/dL Arterial Blood Potassium (3.6-5.2) mmol/L Urine Color Yellow (YELLOW) Urine Clarity Hazy (Clear) Urine pH 6.0 (5.0-8.0) Ur Specific [place] 1.009 (1.003-1.030) Urine Protein 2+ H (NEGATIVE) mg/dL Urine Glucose (UA) 2+ H (Normal) mg/dL Urine Ketones Negative (NEGATIVE) mg/dL Urine Blood 3+ H (NEGATIVE) Urine Nitrate Negative (NEGATIVE) Urine Bilirubin Negative (NEGATIVE) Urine Urobilinogen Normal (0.2-1.0) mg/dL Ur Leukocyte Esterase 2+ H (Negative) Crispin/uL Urine WBC (Auto) 167 H (0-5) /hpf Urine RBC (Auto) 169 H (0-3) /hpf Urine Bacteria Occ H (<OCC) Urine Opiates Screen Negative (NEGATIVE) Urine Methadone Screen Negative (NEGATIVE) Ur Barbiturates Screen Negative (NEGATIVE) Ur Phencyclidine Scrn Negative (NEGATIVE) Ur Amphetamines Screen Negative (NEGATIVE) U Benzodiazepines Scrn Negative (NEGATIVE) U Oth Cocaine Metabols Negative (NEGATIVE) U Cannabinoids Screen Negative (NEGATIVE) 10/02/17 10/02/17 10/02/17 Range/Units 17:46 17:11 16:07 WBC (4.8-10.8) K/uL RBC (4.40-5.90) Mil/uL Hgb (12.0-18.0) g/dL Hct (35.0-51.0) % MCV (80.0-94.0) fL MCH (27.0-31.0) pg MCHC (33.0-37.0) g/dL RDW (11.5-14.5) % Plt Count (130-400) K/uL MPV (7.2-11.7) fL Neut % (Auto) (50.0-75.0) % Lymph % (Auto) (20.0-40.0) % Worth % (Auto) (0.0-10.0) % Eos % (Auto) (0.0-4.0) % Baso % (Auto) (0.0-2.0) % Neut # (Auto) (1.8-7.0) K/uL Lymph # (Auto) (1.0-4.3) K/uL Worth # (Auto) (0.0-0.8) K/uL Eos # (Auto) (0.0-0.7) K/uL Baso # (Auto) (0.0-0.2) K/uL Puncture Site Lra Rra pCO2 42 53 H (35-45) mm/Hg pO2 193 H 56 L (80-100) mm/Hg HCO3 17.1 L 17.0 L (21-28) mmol/L ABG pH 7.22 L 7.17 L* (7.35-7.45) ABG Total CO2 18.5 L 20.9 L (22-28) mmol/L ABG O2 Saturation 100.3 H 89.6 L (95-98) % ABG Base Excess -10.1 L -9.5 L (-2.0-3.0) mmol/L ABG Hemoglobin (11.7-17.4) g/dL ABG Carboxyhemoglobin (0.5-1.5) % POC ABG HHb (Measured) (0.0-5.0) % ABG Methemoglobin (0.0-3.0) % Vijay Test Pos Pos ABG Potassium 4.9 5.5 H (3.6-5.2) mmol/L A-a O2 Difference 468.0 mm/Hg Respiratory Index 2.4 Hgb O2 Saturation (95.0-98.0) % Sodium 137.0 133.0 (132-148) mmol/l Chloride 108.0 H 101.0 (98-107) mmol/L Glucose 206 H 241 H (75-110) mg/dl Lactate 1.7 2.2 H (0.7-2.1) mmol/L Liter Flow 6.0 Vent Mode Mechanical Rate FiO2 100.0 % PEEP Crit Value Called To Jeronimo murphy Crit Value Called By Horacio ferrara Crit Value Read Back Y Blood Gas Notified Time 1717 Potassium (3.6-5.2) mmol/L Carbon Dioxide (22-30) mmol/L Anion Gap (10-20) BUN (9-20) mg/dL Creatinine (0.8-1.5) mg/dL Est GFR ( Amer) Est GFR (Non-Af Amer) POC Glucose (mg/dL) 180 H (65-110) mg/dL Random Glucose (75-110) mg/dL Lactic Acid (0.7-2.1) mmol/L Calcium (8.6-10.4) mg/dl Phosphorus (2.5-4.5) mg/dL Magnesium (1.6-2.3) mg/dL Arterial Blood Potassium 4.9 5.5 H (3.6-5.2) mmol/L Urine Color (YELLOW) Urine Clarity (Clear) Urine pH (5.0-8.0) Ur Specific [place] (1.003-1.030) Urine Protein (NEGATIVE) mg/dL Urine Glucose (UA) (Normal) mg/dL Urine Ketones (NEGATIVE) mg/dL Urine Blood (NEGATIVE) Urine Nitrate (NEGATIVE) Urine Bilirubin (NEGATIVE) Urine Urobilinogen (0.2-1.0) mg/dL Ur Leukocyte Esterase (Negative) Crispin/uL Urine WBC (Auto) (0-5) /hpf Urine RBC (Auto) (0-3) /hpf Urine Bacteria (<OCC) Urine Opiates Screen (NEGATIVE) Urine Methadone Screen (NEGATIVE) Ur Barbiturates Screen (NEGATIVE) Ur Phencyclidine Scrn (NEGATIVE) Ur Amphetamines Screen (NEGATIVE) U Benzodiazepines Scrn (NEGATIVE) U Oth Cocaine Metabols (NEGATIVE) U Cannabinoids Screen (NEGATIVE) 10/02/17 Range/Units 11:06 WBC (4.8-10.8) K/uL RBC (4.40-5.90) Mil/uL Hgb (12.0-18.0) g/dL Hct (35.0-51.0) % MCV (80.0-94.0) fL MCH (27.0-31.0) pg MCHC (33.0-37.0) g/dL RDW (11.5-14.5) % Plt Count (130-400) K/uL MPV (7.2-11.7) fL Neut % (Auto) (50.0-75.0) % Lymph % (Auto) (20.0-40.0) % Worth % (Auto) (0.0-10.0) % Eos % (Auto) (0.0-4.0) % Baso % (Auto) (0.0-2.0) % Neut # (Auto) (1.8-7.0) K/uL Lymph # (Auto) (1.0-4.3) K/uL Worth # (Auto) (0.0-0.8) K/uL Eos # (Auto) (0.0-0.7) K/uL Baso # (Auto) (0.0-0.2) K/uL Puncture Site pCO2 (35-45) mm/Hg pO2 (80-100) mm/Hg HCO3 (21-28) mmol/L ABG pH (7.35-7.45) ABG Total CO2 (22-28) mmol/L ABG O2 Saturation (95-98) % ABG Base Excess (-2.0-3.0) mmol/L ABG Hemoglobin (11.7-17.4) g/dL ABG Carboxyhemoglobin (0.5-1.5) % POC ABG HHb (Measured) (0.0-5.0) % ABG Methemoglobin (0.0-3.0) % Vijay Test ABG Potassium (3.6-5.2) mmol/L A-a O2 Difference mm/Hg Respiratory Index Hgb O2 Saturation (95.0-98.0) % Sodium (132-148) mmol/l Chloride (98-107) mmol/L Glucose (75-110) mg/dl Lactate (0.7-2.1) mmol/L Liter Flow Vent Mode Mechanical Rate FiO2 % PEEP Crit Value Called To Crit Value Called By Crit Value Read Back Blood Gas Notified Time Potassium (3.6-5.2) mmol/L Carbon Dioxide (22-30) mmol/L Anion Gap (10-20) BUN (9-20) mg/dL Creatinine (0.8-1.5) mg/dL Est GFR ( Amer) Est GFR (Non-Af Amer) POC Glucose (mg/dL) 182 H (65-110) mg/dL Random Glucose (75-110) mg/dL Lactic Acid (0.7-2.1) mmol/L Calcium (8.6-10.4) mg/dl Phosphorus (2.5-4.5) mg/dL Magnesium (1.6-2.3) mg/dL Arterial Blood Potassium (3.6-5.2) mmol/L Urine Color (YELLOW) Urine Clarity (Clear) Urine pH (5.0-8.0) Ur Specific [place] (1.003-1.030) Urine Protein (NEGATIVE) mg/dL Urine Glucose (UA) (Normal) mg/dL Urine Ketones (NEGATIVE) mg/dL Urine Blood (NEGATIVE) Urine Nitrate (NEGATIVE) Urine Bilirubin (NEGATIVE) Urine Urobilinogen (0.2-1.0) mg/dL Ur Leukocyte Esterase (Negative) Crispin/uL Urine WBC (Auto) (0-5) /hpf Urine RBC (Auto) (0-3) /hpf Urine Bacteria (<OCC) Urine Opiates Screen (NEGATIVE) Urine Methadone Screen (NEGATIVE) Ur Barbiturates Screen (NEGATIVE) Ur Phencyclidine Scrn (NEGATIVE) Ur Amphetamines Screen (NEGATIVE) U Benzodiazepines Scrn (NEGATIVE) U Oth Cocaine Metabols (NEGATIVE) U Cannabinoids Screen (NEGATIVE) Laboratory Results - last 24 hr 10/02/17 10/02/17 10/02/17 11:06 16:07 17:11 WBC RBC Hgb Hct MCV MCH MCHC RDW Plt Count MPV Neut % (Auto) Lymph % (Auto) Worth % (Auto) Eos % (Auto) Baso % (Auto) Neut # (Auto) Lymph # (Auto) Worth # (Auto) Eos # (Auto) Baso # (Auto) Puncture Site Rra pCO2 53 H pO2 56 L HCO3 17.0 L ABG pH 7.17 L* ABG Total CO2 20.9 L ABG O2 Saturation 89.6 L ABG Base Excess -9.5 L ABG Hemoglobin ABG Carboxyhemoglobin POC ABG HHb (Measured) ABG Methemoglobin Vijay Test Pos ABG Potassium 5.5 H A-a O2 Difference Respiratory Index Hgb O2 Saturation Sodium 133.0 Chloride 101.0 Glucose 241 H Lactate 2.2 H Liter Flow 6.0 Vent Mode Mechanical Rate FiO2 PEEP Crit Value Called To Jeronimo murphy Crit Value Called By Horacio ferrara Crit Value Read Back Y Blood Gas Notified Time 1717 Potassium Carbon Dioxide Anion Gap BUN Creatinine Est GFR ( Amer) Est GFR (Non-Af Amer) POC Glucose (mg/dL) 182 H 180 H Random Glucose Lactic Acid Calcium Phosphorus Magnesium Arterial Blood Potassium 5.5 H Urine Color Urine Clarity Urine pH Ur Specific [place] Urine Protein Urine Glucose (UA) Urine Ketones Urine Blood Urine Nitrate Urine Bilirubin Urine Urobilinogen Ur Leukocyte Esterase Urine WBC (Auto) Urine RBC (Auto) Urine Bacteria Urine Opiates Screen Urine Methadone Screen Ur Barbiturates Screen Ur Phencyclidine Scrn Ur Amphetamines Screen U Benzodiazepines Scrn U Oth Cocaine Metabols U Cannabinoids Screen 10/02/17 10/02/17 10/02/17 17:46 17:48 17:52 WBC RBC Hgb Hct MCV MCH MCHC RDW Plt Count MPV Neut % (Auto) Lymph % (Auto) Worth % (Auto) Eos % (Auto) Baso % (Auto) Neut # (Auto) Lymph # (Auto) Worth # (Auto) Eos # (Auto) Baso # (Auto) Puncture Site Lra pCO2 42 pO2 193 H HCO3 17.1 L ABG pH 7.22 L ABG Total CO2 18.5 L ABG O2 Saturation 100.3 H ABG Base Excess -10.1 L ABG Hemoglobin ABG Carboxyhemoglobin POC ABG HHb (Measured) ABG Methemoglobin Vijay Test Pos ABG Potassium 4.9 A-a O2 Difference 468.0 Respiratory Index 2.4 Hgb O2 Saturation Sodium 137.0 Chloride 108.0 H Glucose 206 H Lactate 1.7 Liter Flow Vent Mode Mechanical Rate FiO2 100.0 PEEP Crit Value Called To Crit Value Called By Crit Value Read Back Blood Gas Notified Time Potassium Carbon Dioxide Anion Gap BUN Creatinine Est GFR ( Amer) Est GFR (Non-Af Amer) POC Glucose (mg/dL) 235 H Random Glucose Lactic Acid Calcium Phosphorus Magnesium Arterial Blood Potassium 4.9 Urine Color Urine Clarity Urine pH Ur Specific [place] Urine Protein Urine Glucose (UA) Urine Ketones Urine Blood Urine Nitrate Urine Bilirubin Urine Urobilinogen Ur Leukocyte Esterase Urine WBC (Auto) Urine RBC (Auto) Urine Bacteria Urine Opiates Screen Negative Urine Methadone Screen Negative Ur Barbiturates Screen Negative Ur Phencyclidine Scrn Negative Ur Amphetamines Screen Negative U Benzodiazepines Scrn Negative U Oth Cocaine Metabols Negative U Cannabinoids Screen Negative 10/02/17 10/02/1710/03/18 20:43 23:26 00:14 WBC RBC Hgb Hct MCV MCH MCHC RDW Plt Count MPV Neut % (Auto) Lymph % (Auto) Worth % (Auto) Eos % (Auto) Baso % (Auto) Neut # (Auto) Lymph # (Auto) Worth # (Auto) Eos # (Auto) Baso # (Auto) Puncture Site pCO2 pO2 HCO3 ABG pH ABG Total CO2 ABG O2 Saturation ABG Base Excess ABG Hemoglobin ABG Carboxyhemoglobin POC ABG HHb (Measured) ABG Methemoglobin [place]ij[place] Test ABG Potassium A-a O2 Difference Respiratory Index Hgb O2 Saturation Sodium Chloride Glucose Lactate Liter Flow Vent Mode Mechanical Rate FiO2 PEEP Crit Value Called To Crit Value Called By Crit Value Read Back Blood Gas Notified Time Potassium Carbon Dioxide Anion Gap BUN Creatinine Est GFR ( Amer) Est GFR (Non-Af Amer) POC Glucose (mg/dL) 186 H Random Glucose Lactic Acid 1.0 Calcium Phosphorus Magnesium Arterial Blood Potassium Urine Color Yellow Urine Clarity Hazy Urine pH 6.0 Ur Specific [place] 1.009 Urine Protein 2+ H Urine Glucose (UA) 2+ H Urine Ketones Negative Urine Blood 3+ H Urine Nitrate Negative Urine Bilirubin Negative Urine Urobilinogen Normal Ur Leukocyte Esterase 2+ H Urine WBC (Auto) 167 H Urine RBC (Auto) 169 H Urine Bacteria Occ H Urine Opiates Screen Urine Methadone Screen Ur Barbiturates Screen Ur Phencyclidine Scrn Ur Amphetamines Screen U Benzodiazepines Scrn U Oth Cocaine Metabols U Cannabinoids Screen 10/03/17 10/03/17 10/03/17 05:24 05:27 05:48 WBC 9.9 RBC 3.01 L Hgb 8.9 L Hct 26.3 L MCV 87.4 MCH 29.6 MCHC 33.8 RDW 14.3 Plt Count 315 MPV 7.7 Neut % (Auto) 77.5 H Lymph % (Auto) 10.8 L [place] % (Auto) 9.8 Eos % (Auto) 0.8 Baso % (Auto) 1.1 Neut # (Auto) 7.7 H Lymph # (Auto) 1.1 Worth # (Auto) 1.0 H Eos # (Auto) 0.1 Baso # (Auto) 0.1 Puncture Site Rra pCO2 31 L pO2 107 H HCO3 23.4 ABG pH 7.45 ABG Total CO2 22.5 ABG O2 Saturation 99.2 H ABG Base Excess -2.0 ABG Hemoglobin 9.2 L ABG Carboxyhemoglobin 1.5 POC ABG HHb (Measured) 0.8 ABG Methemoglobin 0.9 Vijay Test Na ABG Potassium A-a O2 Difference 211.0 Respiratory Index 2.0 Hgb O2 Saturation 96.7 Sodium Chloride Glucose Lactate Liter Flow Vent Mode A/c pc Mechanical Rate 12 FiO2 50.0 PEEP 5 Crit Value Called To Crit Value Called By Crit Value Read Back Blood Gas Notified Time Potassium Carbon Dioxide Anion Gap BUN Creatinine Est GFR ( Amer) Est GFR (Non-Af Amer) POC Glucose (mg/dL) 148 H Random Glucose Lactic Acid Calcium Phosphorus Magnesium Arterial Blood Potassium Urine Color Urine Clarity Urine pH Ur Specific [place] Urine Protein Urine Glucose (UA) Urine Ketones Urine Blood Urine Nitrate Urine Bilirubin Urine Urobilinogen Ur Leukocyte Esterase Urine WBC (Auto) Urine RBC (Auto) Urine Bacteria Urine Opiates Screen Urine Methadone Screen Ur Barbiturates Screen Ur Phencyclidine Scrn Ur Amphetamines Screen U Benzodiazepines Scrn U Oth Cocaine Metabols U Cannabinoids Screen 10/03/17 05:49 WBC RBC Hgb Hct MCV MCH MCHC RDW Plt Count MPV Neut % (Auto) Lymph % (Auto) Worth % (Auto) Eos % (Auto) Baso % (Auto) Neut # (Auto) Lymph # (Auto) Worth # (Auto) Eos # (Auto) Baso # (Auto) Puncture Site pCO2 pO2 HCO3 ABG pH ABG Total CO2 ABG O2 Saturation ABG Base Excess ABG Hemoglobin ABG Carboxyhemoglobin POC ABG HHb (Measured) ABG Methemoglobin [place] Test ABG Potassium A-a O2 Difference Respiratory Index Hgb O2 Saturation Sodium 139 Chloride 101 Glucose Lactate Liter Flow Vent Mode Mechanical Rate FiO2 PEEP Crit Value Called To Crit Value Called By Crit Value Read Back Blood Gas Notified Time Potassium 5.4 H Carbon Dioxide 21 L Anion Gap 22 H BUN 66 H Creatinine 4.6 H Est GFR ( Amer) 15 Est GFR (Non-Af Amer) 12 POC Glucose (mg/dL) Random Glucose 136 H Lactic Acid Calcium 8.1 L Phosphorus 5.8 H Magnesium 2.3 Arterial Blood Potassium Urine Color Urine Clarity Urine pH Ur Specific [place] Urine Protein Urine Glucose (UA) Urine Ketones Urine Blood Urine Nitrate Urine Bilirubin Urine Urobilinogen Ur Leukocyte Esterase Urine WBC (Auto) Urine RBC (Auto) Urine Bacteria Urine Opiates Screen Urine Methadone Screen Ur Barbiturates Screen Ur Phencyclidine Scrn Ur Amphetamines Screen U Benzodiazepines Scrn U Oth Cocaine Metabols U Cannabinoids Screen Assessment/Plan - Assessment and Plan (Free Text) Assessment: This is an 87 year old male with PMHx DM, HTN, elevated PSA with bone lesions who initially came to the hospital for low hemoglobin in the long term. Patient had [employer] called for hypercapneic respiratory failure. Intubated and brought to the ICU. Will do CPAP trials daily and optimize for weaning. Neuro Intubated and sedated on Precedex Head CT negative Cardio ASA 81 mg PO daily Coreg 3.125 mg PO BID Crestor 5 mg PO HS Pulm Assessment: Hypercapneic respiratory failure, COPD exacerbation Duoneb Q6H MOISES Solumedrol 125 mg IV one time Solumedrol 40 mg IV Q6H Singulair 10 mg PO HS Lasix 80 mg IV one time dose Lasix 40 mg PO daily GI Tube feeds Protonix 40 mg PO daily Renal Assessment: CKD sodium bicarb tabs 650 mg PO BID Procrit 57313 units MWF Infectious Disease Zosyn 2.25 gm IV Q6H Vancomycin 1 gm Q24H Doxycycline 100 mg IV Q12H Prophylaxis VTE held due to anemia Protonix 40 mg PO daily Discussed with Dr. David Alcala <Giuliano Alcala - Last Filed: 10/03/17 10:38> CCU Objective - Vital Signs / Intake & Output Vital Signs (Last 4 hours): Vital Signs Temp Pulse Resp BP Pulse Ox 10/03/17 09:00 58 L 16 99 10/03/17 08:30 62 29 H 94 L 10/03/17 08:21 126/57 L 10/03/17 08:14 61 31 H 126/57 L 95 10/03/17 08:00 98.7 F 77 20 97 10/03/17 07:30 69 35 H 100 10/03/17 07:15 60 28 H 118/49 L 100 10/03/17 07:00 65 14 100 Intake and Output (Last 8hrs): Intake & Output 10/02/17 10/03/17 10/03/17 22:59 06:59 14:59 Intake Total 166.9 277.0 100.5 Output Total 780 970 Balance -613.1 -693.0 100.5 Weight 156 lb 156 lb Intake: IV 11 39 Intake, IV Amount 65.9 78.0 10.5 Left Forearm 50 50 Right PICC 15.9 28.0 10.5 Oral 50 Tube Feeding 30 110 40 Other 60 50 Output: Urine 780 950 Urethral (Nair) 780 950 Emesis 20 Other: # Bowel Movements 0 0 - Medications Active Medications: Active Medications Generic Name Dose Route Start Last Admin Trade Name Freq PRN Reason Stop Dose Admin Albuterol/Ipratropium 3 ml 09/30/17 14:00 10/03/17 08:39 Duoneb 3 Mg/0.5 Mg (3 Ml) Ud INH 3 ml RQ6 MOISES Administration Aspirin 81 mg 09/30/17 10:00 10/03/17 10:03 Aspirin Chewable PO 81 mg DAILY MOISES Administration Carvedilol 3.125 mg 09/30/17 10:00 10/03/17 10:02 Coreg PO 3.125 mg BID MOISES Administration Dorzolamide HCl 0 ml 10/01/17 10:00 10/03/17 10:06 Trusopt OU 1 drop BID MOISES Administration Epoetin Jacob 10,000 unit 10/01/17 16:00 10/01/17 16:40 Procrit SC 10,000 unit MWF MOISES Administration Ergocalciferol 1 cap 10/02/17 10:30 10/02/17 10:45 Drisdol 50,000 Intl Units Cap PO 1 cap Q7D MOISES Administration Ferrous Gluconate 324 mg 09/30/17 10:00 10/03/17 10:04 Fergon PO 324 mg TID MOISES Administration Furosemide 40 mg 09/30/17 10:00 10/03/17 09:26 Lasix PO Not Given DAILY MOISES Piperacillin Sod/Tazobactam Sod 2.25 gm in 50 mls @ 100 mls/hr 09/30/17 10:00 10/03/17 10:13 Zosyn 2.25 Gm Iv Premix IVPB 100 mls/hr Q6H MOISES Administration Protocol Dexmedetomidine HCl 200 mcg/ 50 mls @ 4.53 mls/hr 10/02/17 19:30 10/03/17 03: 33 Sodium Chloride IV 0.2 mcg/kg/hr TITR PRN 4.53 mls/hr Agitation Administration Protocol 0.2 MCG/KG/HR Vancomycin HCl 1 gm/ Sodium 250 mls @ 166.7 mls/hr 10/03/17 11:00 Chloride IVPB Q24H MOISES Protocol Doxycycline Hyclate 100 mg/ 100 mls @ 100 mls/hr 10/03/17 10:00 Sodium Chloride IVPB Q12H MOISES Protocol Insulin Aspart 0 unit 10/03/17 00:00 10/03/17 05:31 Novolog SC Not Given Q6H MOISES Protocol Insulin Glargine 10 unit 09/30/17 22:00 10/02/17 21:44 Lantus SC 10 units HS MOISES Administration Latanoprost 1 ml 09/30/17 22:00 10/02/17 21:44 Xalatan Opht OS 1 ml HS MOISES Administration Magnesium Oxide 400 mg 09/30/17 10:00 10/03/17 10:03 Mag-Ox PO 400 mg BID MOISES Administration Methylprednisolone 40 mg 10/03/17 10:00 10/03/17 09:27 Solu-Medrol IVP Not Given Q6H MOISES Montelukast Sodium 10 mg 10/03/17 22:00 Singulair PO HS MOISES Pantoprazole Sodium 40 mg 10/03/17 10:00 10/03/17 10:03 Protonix Susp PO 40 mg DAILY MOISES Administration Rosuvastatin Calcium 5 mg 09/30/17 22:00 10/02/17 21:45 Crestor PO 5 mg HS MOISES Administration Saccharomyces Boulardii 250 mg 09/30/17 10:00 10/03/17 10:07 Florastor PO 250 mg BID MOISES Administration Sodium Bicarbonate 650 mg 09/30/17 10:00 10/03/17 10:03 Sodium Bicarbonate Tab PO 650 mg BID MOISES Administration Tamsulosin HCl 0.4 mg 09/30/17 10:00 10/03/17 10:04 Flomax PO 0.4 mg DAILY MOISES Administration Timolol Maleate 1 drop 09/30/17 09:45 10/03/17 10:05 Timoptic 0.25% Ophth Soln OU 1 drop Q12H MOISES Administration Vitamin B Complex/Vit C/Folic Acid 1 tab 10/01/17 08:00 10/03/17 07:42 Nephro-Fe PO 1 tab 0800 [facility] Administration - Patient Studies Lab Studies: Microbiology Studies 10/02/17 21:46 Urine Culture - Final Urine,Nair No Growth (<1,000 CFU/ML) 10/02/17 21:46 Gram Stain - Final Trachasp Lab Studies 10/03/17 10/03/17 10/03/17 Range/Units 05:49 05:48 05:27 WBC 9.9 (4.8-10.8) K/uL RBC 3.01 L (4.40-5.90) Mil/uL Hgb 8.9 L (12.0-18.0) g/dL Hct 26.3 L (35.0-51.0) % MCV 87.4 (80.0-94.0) fL MCH 29.6 (27.0-31.0) pg MCHC 33.8 (33.0-37.0) g/dL RDW 14.3 (11.5-14.5) % Plt Count 315 (130-400) K/uL MPV 7.7 (7.2-11.7) fL Neut % (Auto) 77.5 H (50.0-75.0) % Lymph % (Auto) 10.8 L (20.0-40.0) % Worth % (Auto) 9.8 (0.0-10.0) % Eos % (Auto) 0.8 (0.0-4.0) % Baso % (Auto) 1.1 (0.0-2.0) % Neut # (Auto) 7.7 H (1.8-7.0) K/uL Lymph # (Auto) 1.1 (1.0-4.3) K/uL Worth # (Auto) 1.0 H (0.0-0.8) K/uL Eos # (Auto) 0.1 (0.0-0.7) K/uL Baso # (Auto) 0.1 (0.0-0.2) K/uL Puncture Site pCO2 (35-45) mm/Hg pO2 (80-100) mm/Hg HCO3 (21-28) mmol/L ABG pH (7.35-7.45) ABG Total CO2 (22-28) mmol/L ABG O2 Saturation (95-98) % ABG Base Excess (-2.0-3.0) mmol/L ABG Hemoglobin (11.7-17.4) g/dL ABG Carboxyhemoglobin (0.5-1.5) % POC ABG HHb (Measured) (0.0-5.0) % ABG Methemoglobin (0.0-3.0) % Vijay Test ABG Potassium (3.6-5.2) mmol/L A-a O2 Difference mm/Hg Respiratory Index Hgb O2 Saturation (95.0-98.0) % Sodium 139 (132-148) mmol/l Chloride 101 (98-107) mmol/L Glucose (75-110) mg/dl Lactate (0.7-2.1) mmol/L Liter Flow Vent Mode Mechanical Rate FiO2 % PEEP Crit Value Called To Crit Value Called By Crit Value Read Back Blood Gas Notified Time Potassium 5.4 H (3.6-5.2) mmol/L Carbon Dioxide 21 L (22-30) mmol/L Anion Gap 22 H (10-20) BUN 66 H (9-20) mg/dL Creatinine 4.6 H (0.8-1.5) mg/dL Est GFR ( Amer) 15 Est GFR (Non-Af Amer) 12 POC Glucose (mg/dL) 148 H (65-110) mg/dL Random Glucose 136 H (75-110) mg/dL Lactic Acid (0.7-2.1) mmol/L Calcium 8.1 L (8.6-10.4) mg/dl Phosphorus 5.8 H (2.5-4.5) mg/dL Magnesium 2.3 (1.6-2.3) mg/dL Arterial Blood Potassium (3.6-5.2) mmol/L Urine Color (YELLOW) Urine Clarity (Clear) Urine pH (5.0-8.0) Ur Specific [place] (1.003-1.030) Urine Protein (NEGATIVE) mg/dL Urine Glucose (UA) (Normal) mg/dL Urine Ketones (NEGATIVE) mg/dL Urine Blood (NEGATIVE) Urine Nitrate (NEGATIVE) Urine Bilirubin (NEGATIVE) Urine Urobilinogen (0.2-1.0) mg/dL Ur Leukocyte Esterase (Negative) Crispin/uL Urine WBC (Auto) (0-5) /hpf Urine RBC (Auto) (0-3) /hpf Urine Bacteria (<OCC) Urine Opiates Screen (NEGATIVE) Urine Methadone Screen (NEGATIVE) Ur Barbiturates Screen (NEGATIVE) Ur Phencyclidine Scrn (NEGATIVE) Ur Amphetamines Screen (NEGATIVE) U Benzodiazepines Scrn (NEGATIVE) U Oth Cocaine Metabols (NEGATIVE) U Cannabinoids Screen (NEGATIVE) 10/03/17 10/03/17 10/02/17 Range/Units 05:24 00:14 23:26 WBC (4.8-10.8) K/uL RBC (4.40-5.90) Mil/uL Hgb (12.0-18.0) g/dL Hct (35.0-51.0) % MCV (80.0-94.0) fL MCH (27.0-31.0) pg MCHC (33.0-37.0) g/dL RDW (11.5-14.5) % Plt Count (130-400) K/uL MPV (7.2-11.7) fL Neut % (Auto) (50.0-75.0) % Lymph % (Auto) (20.0-40.0) % Worth % (Auto) (0.0-10.0) % Eos % (Auto) (0.0-4.0) % Baso % (Auto) (0.0-2.0) % Neut # (Auto) (1.8-7.0) K/uL Lymph # (Auto) (1.0-4.3) K/uL Worth # (Auto) (0.0-0.8) K/uL Eos # (Auto) (0.0-0.7) K/uL Baso # (Auto) (0.0-0.2) K/uL Puncture Site Rra pCO2 31 L (35-45) mm/Hg pO2 107 H (80-100) mm/Hg HCO3 23.4 (21-28) mmol/L ABG pH 7.45 (7.35-7.45) ABG Total CO2 22.5 (22-28) mmol/L ABG O2 Saturation 99.2 H (95-98) % ABG Base Excess -2.0 (-2.0-3.0) mmol/L ABG Hemoglobin 9.2 L (11.7-17.4) g/dL ABG Carboxyhemoglobin 1.5 (0.5-1.5) % POC ABG HHb (Measured) 0.8 (0.0-5.0) % ABG Methemoglobin 0.9 (0.0-3.0) % Vijay Test Na ABG Potassium (3.6-5.2) mmol/L A-a O2 Difference 211.0 mm/Hg Respiratory Index 2.0 Hgb O2 Saturation 96.7 (95.0-98.0) % Sodium (132-148) mmol/l Chloride (98-107) mmol/L Glucose (75-110) mg/dl Lactate (0.7-2.1) mmol/L Liter Flow Vent Mode A/c pc Mechanical Rate 12 FiO2 50.0 % PEEP 5 Crit Value Called To Crit Value Called By Crit Value Read Back Blood Gas Notified Time Potassium (3.6-5.2) mmol/L Carbon Dioxide (22-30) mmol/L Anion Gap (10-20) BUN (9-20) mg/dL Creatinine (0.8-1.5) mg/dL Est GFR ( Amer) Est GFR (Non-Af Amer) POC Glucose (mg/dL) 186 H (65-110) mg/dL Random Glucose (75-110) mg/dL Lactic Acid 1.0 (0.7-2.1) mmol/L Calcium (8.6-10.4) mg/dl Phosphorus (2.5-4.5) mg/dL Magnesium (1.6-2.3) mg/dL Arterial Blood Potassium (3.6-5.2) mmol/L Urine Color (YELLOW) Urine Clarity (Clear) Urine pH (5.0-8.0) Ur Specific [place] (1.003-1.030) Urine Protein (NEGATIVE) mg/dL Urine Glucose (UA) (Normal) mg/dL Urine Ketones (NEGATIVE) mg/dL Urine Blood (NEGATIVE) Urine Nitrate (NEGATIVE) Urine Bilirubin (NEGATIVE) Urine Urobilinogen (0.2-1.0) mg/dL Ur Leukocyte Esterase (Negative) Crispin/uL Urine WBC (Auto) (0-5) /hpf Urine RBC (Auto) (0-3) /hpf Urine Bacteria (<OCC) Urine Opiates Screen (NEGATIVE) Urine Methadone Screen (NEGATIVE) Ur Barbiturates Screen (NEGATIVE) Ur Phencyclidine Scrn (NEGATIVE) Ur Amphetamines Screen (NEGATIVE) U Benzodiazepines Scrn (NEGATIVE) U Oth Cocaine Metabols (NEGATIVE) U Cannabinoids Screen (NEGATIVE) 10/02/17 10/02/17 10/02/17 Range/Units 20:43 17:52 17:48 WBC (4.8-10.8) K/uL RBC (4.40-5.90) Mil/uL Hgb (12.0-18.0) g/dL Hct (35.0-51.0) % MCV (80.0-94.0) fL MCH (27.0-31.0) pg MCHC (33.0-37.0) g/dL RDW (11.5-14.5) % Plt Count (130-400) K/uL MPV (7.2-11.7) fL Neut % (Auto) (50.0-75.0) % Lymph % (Auto) (20.0-40.0) % Worth % (Auto) (0.0-10.0) % Eos % (Auto) (0.0-4.0) % Baso % (Auto) (0.0-2.0) % Neut # (Auto) (1.8-7.0) K/uL Lymph # (Auto) (1.0-4.3) K/uL Worth # (Auto) (0.0-0.8) K/uL Eos # (Auto) (0.0-0.7) K/uL Baso # (Auto) (0.0-0.2) K/uL Puncture Site pCO2 (35-45) mm/Hg pO2 (80-100) mm/Hg HCO3 (21-28) mmol/L ABG pH (7.35-7.45) ABG Total CO2 (22-28) mmol/L ABG O2 Saturation (95-98) % ABG Base Excess (-2.0-3.0) mmol/L ABG Hemoglobin (11.7-17.4) g/dL ABG Carboxyhemoglobin (0.5-1.5) % POC ABG HHb (Measured) (0.0-5.0) % ABG Methemoglobin (0.0-3.0) % Vijay Test ABG Potassium (3.6-5.2) mmol/L A-a O2 Difference mm/Hg Respiratory Index Hgb O2 Saturation (95.0-98.0) % Sodium (132-148) mmol/l Chloride (98-107) mmol/L Glucose (75-110) mg/dl Lactate (0.7-2.1) mmol/L Liter Flow Vent Mode Mechanical Rate FiO2 % PEEP Crit Value Called To Crit Value Called By Crit Value Read Back Blood Gas Notified Time Potassium (3.6-5.2) mmol/L Carbon Dioxide (22-30) mmol/L Anion Gap (10-20) BUN (9-20) mg/dL Creatinine (0.8-1.5) mg/dL Est GFR ( Amer) Est GFR (Non-Af Amer) POC Glucose (mg/dL) 235 H (65-110) mg/dL Random Glucose (75-110) mg/dL Lactic Acid (0.7-2.1) mmol/L Calcium (8.6-10.4) mg/dl Phosphorus (2.5-4.5) mg/dL Magnesium (1.6-2.3) mg/dL Arterial Blood Potassium (3.6-5.2) mmol/L Urine Color Yellow (YELLOW) Urine Clarity Hazy (Clear) Urine pH 6.0 (5.0-8.0) Ur Specific [place] 1.009 (1.003-1.030) Urine Protein 2+ H (NEGATIVE) mg/dL Urine Glucose (UA) 2+ H (Normal) mg/dL Urine Ketones Negative (NEGATIVE) mg/dL Urine Blood 3+ H (NEGATIVE) Urine Nitrate Negative (NEGATIVE) Urine Bilirubin Negative (NEGATIVE) Urine Urobilinogen Normal (0.2-1.0) mg/dL Ur Leukocyte Esterase 2+ H (Negative) Crispin/uL Urine WBC (Auto) 167 H (0-5) /hpf Urine RBC (Auto) 169 H (0-3) /hpf Urine Bacteria Occ H (<OCC) Urine Opiates Screen Negative (NEGATIVE) Urine Methadone Screen Negative (NEGATIVE) Ur Barbiturates Screen Negative (NEGATIVE) Ur Phencyclidine Scrn Negative (NEGATIVE) Ur Amphetamines Screen Negative (NEGATIVE) U Benzodiazepines Scrn Negative (NEGATIVE) U Oth Cocaine Metabols Negative (NEGATIVE) U Cannabinoids Screen Negative (NEGATIVE) 10/02/17 10/02/17 10/02/17 Range/Units 17:46 17:11 16:07 WBC (4.8-10.8) K/uL RBC (4.40-5.90) Mil/uL Hgb (12.0-18.0) g/dL Hct (35.0-51.0) % MCV (80.0-94.0) fL MCH (27.0-31.0) pg MCHC (33.0-37.0) g/dL RDW (11.5-14.5) % Plt Count (130-400) K/uL MPV (7.2-11.7) fL Neut % (Auto) (50.0-75.0) % Lymph % (Auto) (20.0-40.0) % Worth % (Auto) (0.0-10.0) % Eos % (Auto) (0.0-4.0) % Baso % (Auto) (0.0-2.0) % Neut # (Auto) (1.8-7.0) K/uL Lymph # (Auto) (1.0-4.3) K/uL Worth # (Auto) (0.0-0.8) K/uL Eos # (Auto) (0.0-0.7) K/uL Baso # (Auto) (0.0-0.2) K/uL Puncture Site Lra Rra pCO2 42 53 H (35-45) mm/Hg pO2 193 H 56 L (80-100) mm/Hg HCO3 17.1 L 17.0 L (21-28) mmol/L ABG pH 7.22 L 7.17 L* (7.35-7.45) ABG Total CO2 18.5 L 20.9 L (22-28) mmol/L ABG O2 Saturation 100.3 H 89.6 L (95-98) % ABG Base Excess -10.1 L -9.5 L (-2.0-3.0) mmol/L ABG Hemoglobin (11.7-17.4) g/dL ABG Carboxyhemoglobin (0.5-1.5) % POC ABG HHb (Measured) (0.0-5.0) % ABG Methemoglobin (0.0-3.0) % Vijay Test Pos Pos ABG Potassium 4.9 5.5 H (3.6-5.2) mmol/L A-a O2 Difference 468.0 mm/Hg Respiratory Index 2.4 Hgb O2 Saturation (95.0-98.0) % Sodium 137.0 133.0 (132-148) mmol/l Chloride 108.0 H 101.0 (98-107) mmol/L Glucose 206 H 241 H (75-110) mg/dl Lactate 1.7 2.2 H (0.7-2.1) mmol/L Liter Flow 6.0 Vent Mode Mechanical Rate FiO2 100.0 % PEEP Crit Value Called To Jeronimo murphy Crit Value Called By Horacio ferrara Crit Value Read Back Y Blood Gas Notified Time 1717 Potassium (3.6-5.2) mmol/L Carbon Dioxide (22-30) mmol/L Anion Gap (10-20) BUN (9-20) mg/dL Creatinine (0.8-1.5) mg/dL Est GFR ( Amer) Est GFR (Non-Af Amer) POC Glucose (mg/dL) 180 H (65-110) mg/dL Random Glucose (75-110) mg/dL Lactic Acid (0.7-2.1) mmol/L Calcium (8.6-10.4) mg/dl Phosphorus (2.5-4.5) mg/dL Magnesium (1.6-2.3) mg/dL Arterial Blood Potassium 4.9 5.5 H (3.6-5.2) mmol/L Urine Color (YELLOW) Urine Clarity (Clear) Urine pH (5.0-8.0) Ur Specific [place] (1.003-1.030) Urine Protein (NEGATIVE) mg/dL Urine Glucose (UA) (Normal) mg/dL Urine Ketones (NEGATIVE) mg/dL Urine Blood (NEGATIVE) Urine Nitrate (NEGATIVE) Urine Bilirubin (NEGATIVE) Urine Urobilinogen (0.2-1.0) mg/dL Ur Leukocyte Esterase (Negative) Crispin/uL Urine WBC (Auto) (0-5) /hpf Urine RBC (Auto) (0-3) /hpf Urine Bacteria (<OCC) Urine Opiates Screen (NEGATIVE) Urine Methadone Screen (NEGATIVE) Ur Barbiturates Screen (NEGATIVE) Ur Phencyclidine Scrn (NEGATIVE) Ur Amphetamines Screen (NEGATIVE) U Benzodiazepines Scrn (NEGATIVE) U Oth Cocaine Metabols (NEGATIVE) U Cannabinoids Screen (NEGATIVE) 10/02/17 Range/Units 11:06 WBC (4.8-10.8) K/uL RBC (4.40-5.90) Mil/uL Hgb (12.0-18.0) g/dL Hct (35.0-51.0) % MCV (80.0-94.0) fL MCH (27.0-31.0) pg MCHC (33.0-37.0) g/dL RDW (11.5-14.5) % Plt Count (130-400) K/uL MPV (7.2-11.7) fL Neut % (Auto) (50.0-75.0) % Lymph % (Auto) (20.0-40.0) % Worth % (Auto) (0.0-10.0) % Eos % (Auto) (0.0-4.0) % Baso % (Auto) (0.0-2.0) % Neut # (Auto) (1.8-7.0) K/uL Lymph # (Auto) (1.0-4.3) K/uL Worth # (Auto) (0.0-0.8) K/uL Eos # (Auto) (0.0-0.7) K/uL Baso # (Auto) (0.0-0.2) K/uL Puncture Site pCO2 (35-45) mm/Hg pO2 (80-100) mm/Hg HCO3 (21-28) mmol/L ABG pH (7.35-7.45) ABG Total CO2 (22-28) mmol/L ABG O2 Saturation (95-98) % ABG Base Excess (-2.0-3.0) mmol/L ABG Hemoglobin (11.7-17.4) g/dL ABG Carboxyhemoglobin (0.5-1.5) % POC ABG HHb (Measured) (0.0-5.0) % ABG Methemoglobin (0.0-3.0) % Vijay Test ABG Potassium (3.6-5.2) mmol/L A-a O2 Difference mm/Hg Respiratory Index Hgb O2 Saturation (95.0-98.0) % Sodium (132-148) mmol/l Chloride (98-107) mmol/L Glucose (75-110) mg/dl Lactate (0.7-2.1) mmol/L Liter Flow Vent Mode Mechanical Rate FiO2 % PEEP Crit Value Called To Crit Value Called By Crit Value Read Back Blood Gas Notified Time Potassium (3.6-5.2) mmol/L Carbon Dioxide (22-30) mmol/L Anion Gap (10-20) BUN (9-20) mg/dL Creatinine (0.8-1.5) mg/dL Est GFR ( Amer) Est GFR (Non-Af Amer) POC Glucose (mg/dL) 182 H (65-110) mg/dL Random Glucose (75-110) mg/dL Lactic Acid (0.7-2.1) mmol/L Calcium (8.6-10.4) mg/dl Phosphorus (2.5-4.5) mg/dL Magnesium (1.6-2.3) mg/dL Arterial Blood Potassium (3.6-5.2) mmol/L Urine Color (YELLOW) Urine Clarity (Clear) Urine pH (5.0-8.0) Ur Specific [place] (1.003-1.030) Urine Protein (NEGATIVE) mg/dL Urine Glucose (UA) (Normal) mg/dL Urine Ketones (NEGATIVE) mg/dL Urine Blood (NEGATIVE) Urine Nitrate (NEGATIVE) Urine Bilirubin (NEGATIVE) Urine Urobilinogen (0.2-1.0) mg/dL Ur Leukocyte Esterase (Negative) Crispin/uL Urine WBC (Auto) (0-5) /hpf Urine RBC (Auto) (0-3) /hpf Urine Bacteria (<OCC) Urine Opiates Screen (NEGATIVE) Urine Methadone Screen (NEGATIVE) Ur Barbiturates Screen (NEGATIVE) Ur Phencyclidine Scrn (NEGATIVE) Ur Amphetamines Screen (NEGATIVE) U Benzodiazepines Scrn (NEGATIVE) U Oth Cocaine Metabols (NEGATIVE) U Cannabinoids Screen (NEGATIVE) Laboratory Results - last 24 hr 10/02/17 10/02/17 10/02/17 11:06 16:07 17:11 WBC RBC Hgb Hct MCV MCH MCHC RDW Plt Count MPV Neut % (Auto) Lymph % (Auto) Worth % (Auto) Eos % (Auto) Baso % (Auto) Neut # (Auto) Lymph # (Auto) Worth # (Auto) Eos # (Auto) Baso # (Auto) Puncture Site Rra pCO2 53 H pO2 56 L HCO3 17.0 L ABG pH 7.17 L* ABG Total CO2 20.9 L ABG O2 Saturation 89.6 L ABG Base Excess -9.5 L ABG Hemoglobin ABG Carboxyhemoglobin POC ABG HHb (Measured) ABG Methemoglobin Vijay Test Pos ABG Potassium 5.5 H A-a O2 Difference Respiratory Index Hgb O2 Saturation Sodium 133.0 Chloride 101.0 Glucose 241 H Lactate 2.2 H Liter Flow 6.0 Vent Mode Mechanical Rate FiO2 PEEP Crit Value Called To Jeronimo murphy Crit Value Called By Horacio ferrara Crit Value Read Back Y Blood Gas Notified Time 1717 Potassium Carbon Dioxide Anion Gap BUN Creatinine Est GFR ( Amer) Est GFR (Non-Af Amer) POC Glucose (mg/dL) 182 H 180 H Random Glucose Lactic Acid Calcium Phosphorus Magnesium Arterial Blood Potassium 5.5 H Urine Color Urine Clarity Urine pH Ur Specific [place] Urine Protein Urine Glucose (UA) Urine Ketones Urine Blood Urine Nitrate Urine Bilirubin Urine Urobilinogen Ur Leukocyte Esterase Urine WBC (Auto) Urine RBC (Auto) Urine Bacteria Urine Opiates Screen Urine Methadone Screen Ur Barbiturates Screen Ur Phencyclidine Scrn Ur Amphetamines Screen U Benzodiazepines Scrn U Oth Cocaine Metabols U Cannabinoids Screen 10/02/17 10/02/17 10/02/17 17:46 17:48 17:52 WBC RBC Hgb Hct MCV MCH MCHC RDW Plt Count MPV Neut % (Auto) Lymph % (Auto) Worth % (Auto) Eos % (Auto) Baso % (Auto) Neut # (Auto) Lymph # (Auto) Worth # (Auto) Eos # (Auto) Baso # (Auto) Puncture Site Lra pCO2 42 pO2 193 H HCO3 17.1 L ABG pH 7.22 L ABG Total CO2 18.5 L ABG O2 Saturation 100.3 H ABG Base Excess -10.1 L ABG Hemoglobin ABG Carboxyhemoglobin POC ABG HHb (Measured) ABG Methemoglobin Vijay Test Pos ABG Potassium 4.9 A-a O2 Difference 468.0 Respiratory Index 2.4 Hgb O2 Saturation Sodium 137.0 Chloride 108.0 H Glucose 206 H Lactate 1.7 Liter Flow Vent Mode Mechanical Rate FiO2 100.0 PEEP Crit Value Called To Crit Value Called By Crit Value Read Back Blood Gas Notified Time Potassium Carbon Dioxide Anion Gap BUN Creatinine Est GFR ( Amer) Est GFR (Non-Af Amer) POC Glucose (mg/dL) 235 H Random Glucose Lactic Acid Calcium Phosphorus Magnesium Arterial Blood Potassium 4.9 Urine Color Urine Clarity Urine pH Ur Specific [place] Urine Protein Urine Glucose (UA) Urine Ketones Urine Blood Urine Nitrate Urine Bilirubin Urine Urobilinogen Ur Leukocyte Esterase Urine WBC (Auto) Urine RBC (Auto) Urine Bacteria Urine Opiates Screen Negative Urine Methadone Screen Negative Ur Barbiturates Screen Negative Ur Phencyclidine Scrn Negative Ur Amphetamines Screen Negative U Benzodiazepines Scrn Negative U Oth Cocaine Metabols Negative U Cannabinoids Screen Negative 10/02/17 10/02/17 10/03/17 20:43 23:26 00:14 WBC RBC Hgb Hct MCV MCH MCHC RDW Plt Count MPV Neut % (Auto) Lymph % (Auto) Worth % (Auto) Eos % (Auto) Baso % (Auto) Neut # (Auto) Lymph # (Auto) Worth # (Auto) Eos # (Auto) Baso # (Auto) Puncture Site pCO2 pO2 HCO3 ABG pH ABG Total CO2 ABG O2 Saturation ABG Base Excess ABG Hemoglobin ABG Carboxyhemoglobin POC ABG HHb (Measured) ABG Methemoglobin [place] Test ABG Potassium A-a O2 Difference Respiratory Index Hgb O2 Saturation Sodium Chloride Glucose Lactate Liter Flow Vent Mode Mechanical Rate FiO2 PEEP Crit Value Called To Crit Value Called By Crit Value Read Back Blood Gas Notified Time Potassium Carbon Dioxide Anion Gap BUN Creatinine Est GFR ( Amer) Est GFR (Non-Af Amer) POC Glucose (mg/dL) 186 H Random Glucose Lactic Acid 1.0 Calcium Phosphorus Magnesium Arterial Blood Potassium Urine Color Yellow Urine Clarity Hazy Urine pH 6.0 Ur Specific [place] 1.009 Urine Protein 2+ H Urine Glucose (UA) 2+ H Urine Ketones Negative Urine Blood 3+ H Urine Nitrate Negative Urine Bilirubin Negative Urine Urobilinogen Normal Ur Leukocyte Esterase 2+ H Urine WBC (Auto) 167 H Urine RBC (Auto) 169 H Urine Bacteria Occ H Urine Opiates Screen Urine Methadone Screen Ur Barbiturates Screen Ur Phencyclidine Scrn Ur Amphetamines Screen U Benzodiazepines Scrn U Oth Cocaine Metabols U Cannabinoids Screen 10/03/17 10/03/17 10/03/17 05:24 05:27 05:48 WBC 9.9 RBC 3.01 L Hgb 8.9 L Hct 26.3 L MCV 87.4 MCH 29.6 MCHC 33.8 RDW 14.3 Plt Count 315 MPV 7.7 Neut % (Auto) 77.5 H Lymph % (Auto) 10.8 L [place] % (Auto) 9.8 Eos % (Auto) 0.8 Baso % (Auto) 1.1 Neut # (Auto) 7.7 H Lymph # (Auto) 1.1 Worth # (Auto) 1.0 H Eos # (Auto) 0.1 Baso # (Auto) 0.1 Puncture Site Rra pCO2 31 L pO2 107 H HCO3 23.4 ABG pH 7.45 ABG Total CO2 22.5 ABG O2 Saturation 99.2 H ABG Base Excess -2.0 ABG Hemoglobin 9.2 L ABG Carboxyhemoglobin 1.5 POC ABG HHb (Measured) 0.8 ABG Methemoglobin 0.9 Vijay Test Na ABG Potassium A-a O2 Difference 211.0 Respiratory Index 2.0 Hgb O2 Saturation 96.7 Sodium Chloride Glucose Lactate Liter Flow Vent Mode A/c pc Mechanical Rate 12 FiO2 50.0 PEEP 5 Crit Value Called To Crit Value Called By Crit Value Read Back Blood Gas Notified Time Potassium Carbon Dioxide Anion Gap BUN Creatinine Est GFR ( Amer) Est GFR (Non-Af Amer) POC Glucose (mg/dL) 148 H Random Glucose Lactic Acid Calcium Phosphorus Magnesium Arterial Blood Potassium Urine Color Urine Clarity Urine pH Ur Specific [place] Urine Protein Urine Glucose (UA) Urine Ketones Urine Blood Urine Nitrate Urine Bilirubin Urine Urobilinogen Ur Leukocyte Esterase Urine WBC (Auto) Urine RBC (Auto) Urine Bacteria Urine Opiates Screen Urine Methadone Screen Ur Barbiturates Screen Ur Phencyclidine Scrn Ur Amphetamines Screen U Benzodiazepines Scrn U Oth Cocaine Metabols U Cannabinoids Screen 10/03/17 05:49 WBC RBC Hgb Hct MCV MCH MCHC RDW Plt Count MPV Neut % (Auto) Lymph % (Auto) Worth % (Auto) Eos % (Auto) Baso % (Auto) Neut # (Auto) Lymph # (Auto) Worth # (Auto) Eos # (Auto) Baso # (Auto) Puncture Site pCO2 pO2 HCO3 ABG pH ABG Total CO2 ABG O2 Saturation ABG Base Excess ABG Hemoglobin ABG Carboxyhemoglobin POC ABG HHb (Measured) ABG Methemoglobin [place] Test ABG Potassium A-a O2 Difference Respiratory Index Hgb O2 Saturation Sodium 139 Chloride 101 Glucose Lactate Liter Flow Vent Mode Mechanical Rate FiO2 PEEP Crit Value Called To Crit Value Called By Crit Value Read Back Blood Gas Notified Time Potassium 5.4 H Carbon Dioxide 21 L Anion Gap 22 H BUN 66 H Creatinine 4.6 H Est GFR ( Amer) 15 Est GFR (Non-Af Amer) 12 POC Glucose (mg/dL) Random Glucose 136 H Lactic Acid Calcium 8.1 L Phosphorus 5.8 H Magnesium 2.3 Arterial Blood Potassium Urine Color Urine Clarity Urine pH Ur Specific [place] Urine Protein Urine Glucose (UA) Urine Ketones Urine Blood Urine Nitrate Urine Bilirubin Urine Urobilinogen Ur Leukocyte Esterase Urine WBC (Auto) Urine RBC (Auto) Urine Bacteria Urine Opiates Screen Urine Methadone Screen Ur Barbiturates Screen Ur Phencyclidine Scrn Ur Amphetamines Screen U Benzodiazepines Scrn U Oth Cocaine Metabols U Cannabinoids Screen Assessment/Plan (1) Respiratory failure with hypoxia and hypercapnia Current Visit: Yes Status: Acute Priority: High (2) Altered mental status Current Visit: Yes Status: Acute - Assessment and Plan (Free Text) Plan: Above resident note reviewed and verified: Hypercapneic respiratory failure: intubated, tolerating CPAP at PS at 15/5, continue bronchodilators, add solumedrol, ABG possible extubation if weaning parameters good -AMS: resolved, CT head neg, more awake, alert following commands during CPAP -suspect aspiration : continue empirical abx, f/u cultures -h/o anemia of chornic disease:continue to monitor serial CBC -CKD: Stage III: avoid nephrotoxic drugs, clinically fluid overloaded, diuresis today, start renagel and calcitriol -DVT ppx herpairn SQ -PUD ppx pepcid -check and replace electrolytes, oral kayexelate -CPAP trials today possible extubation avoid sedations - Date & Time Date: 10/03/17 Time: 10:38
[2017-10-03] MEDS: Magnesium Oxide 400 mg Tab UD PO SCH ×2 (10:03→17:09)
[2017-10-03] MEDS: Pantoprazole 40 mg Susp UD PO SCH (10:03)
[2017-10-03] MEDS: Timolol 0.25% Ophth SOLN OU SCH ×2 (10:05→21:07)
[2017-10-03] MEDS: Dorzolamide 2% Opht Sol 10ml OU SCH ×2 (10:06→17:08)
[2017-10-03] MEDS: Saccharomyces Boulardi 250 mg Cap PO SCH ×2 (10:07→17:09)
[2017-10-03] MEDS: Epoetin Alfa 10,000 unit/ml Dialysis SC SCH (10:10)
--- NOTE | 2017-10-03 12:05 | CP.PCM.PN ---
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 fluid overload hx of DM, HTN Vit D def and mild hyperphosphatemia Plan No acute need for renal replacement therapy at this time. Maintain hemodynamics stable, avoid hypotension, Patient not on ACEI/ARB due to SHANNAN Monitor Input/Output, daily weights and renal function with basic metabolic panel continue with iron supplements, MVI and Flomax 0.4 mg once a day supplement with weekly vit D. PTH level pending appreciate Heme evaluation Anemia management as per heme/onc. pt started on epogen continue with garcia check renal sonogram Dose meds/antibiotics for reduced GFR. Avoid fleets enema/magnesium based laxatives. Avoid nephrotoxins/NSAIDs/ iodinated contrast (unless needed emergently) Glycemic control Further work up/management as per primary team Thanks for allowing me to participate in care of your patient. Will follow patient with you. Please call if any Qs. 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 pt seen by heme/onc. Denies OTC/herbal meds or NSAIDs No recent iodinated contrast exposure. No obvious episodes of low BP pt was seen in office recently ~ 2 weeks ago when his serum cr 2.3 and started on epogen for anemia and lasix for edema. pt intubated 10/02/17 evening for respi failure and transferred to MICU ROS: unable Physical Examination: General Appearance: comfortable, in no respiratory distress,. mechanically ventilated Vitals reviewed and noted as below Head; Atraumatic, normocephalic ENT: intubated. EYES: Pupils are equal, round and reactive to light accommodation. Eye muscles and extraocular movement intact. Sclera is anicteric. Neck; supple no lymphadenopathy, no thyromegaly or bruit Lungs: normal respiratory rate/effort. Breath sounds bilateral clearer today Heart: Normal rate. s1s2 normal. No rub or gallop. Extremities: no edema. No varicose veins Neurological: Patient is awake Skin: Warm and dry. Normal turgor. No rash. Palpitation: Normal elasticity for age Abdomen: Abdomen is soft. Bowel sounds +. There is no abdominal tenderness, no guarding/rigidity no organomegaly Psych: deferred MSK: no joint tenderness or swelling. Digits and nails normal, no deformity : kidney/bladder not palpable has garcia catheter Labs/imaging reviewed. Past medical history, past surgical history, family history, social history, allergy reviewed and noted as below Family hx: no hx of CKD. Rest non-contributory Renal sonogram severe bilateral hydronephrosis Urine protein creatinine ratio 2 gram Iron saturation 7% ferritin 198 Objective - Vital Signs/Intake and Output Vital Signs (last 24 hours): Temp Pulse Resp BP Pulse Ox 98.7 F 57 L 17 133/56 L 97 10/03/17 08:00 10/03/17 11:14 10/03/17 11:14 10/03/17 11:14 10/03/17 11:14 Intake and Output: 10/03/17 10/03/17 06:59 18:59 Intake Total 443.9 607.5 Output Total 970 Balance -526.1 607.5 - Medications Medications: Current Medications Albuterol/Ipratropium (Duoneb 3 Mg/0.5 Mg (3 Ml) Ud) 3 ml INH RQ6 [facility] Last Admin: 10/03/17 08:39 Dose: 3 ml Aspirin (Aspirin Chewable) 81 mg PO DAILY [facility] Last Admin: 10/03/17 10:03 Dose: 81 mg Calcitriol (Rocaltrol) 1 mcg PEG DAILY [facility] Carvedilol (Coreg) 3.125 mg PO BID [facility] Last Admin: 10/03/17 10:02 Dose: 3.125 mg Dorzolamide HCl (Trusopt) 0 ml OU BID [facility] Last Admin: 10/03/17 10:06 Dose: 1 drop Epoetin Jacob (Procrit) 10,000 unit SC MWF [facility] Last Admin: 10/03/17 10:10 Dose: 10,000 unit Ergocalciferol (Drisdol 50,000 Intl Units Cap) 1 cap PO Q7D [facility] Last Admin: 10/02/17 10:45 Dose: 1 cap Ferrous Gluconate (Fergon) 324 mg PO TID [facility] Last Admin: 10/03/17 10:04 Dose: 324 mg Furosemide (Lasix) 40 mg PO DAILY [facility] Last Admin: 10/03/17 09:26 Dose: Not Given Piperacillin Sod/Tazobactam Sod (Zosyn 2.25 Gm Iv Premix) 2.25 gm in 50 mls @ 100 mls/hr IVPB Q6H [facility] PRN Reason: Protocol Last Admin: 10/03/17 10:13 Dose: 100 mls/hr Dexmedetomidine HCl 200 mcg/ (Sodium Chloride) 50 mls @ 4.53 mls/hr IV TITR PRN ; Protocol; 0.2 MCG/KG/HR PRN Reason: Agitation Last Admin: 10/03/17 03:33 Dose: 0.2 mcg/kg/hr, 4.53 mls/hr Vancomycin HCl 1 gm/ Sodium (Chloride) 250 mls @ 166.7 mls/hr IVPB Q24H [facility] PRN Reason: Protocol Last Admin: 10/03/17 11:15 Dose: 166.7 mls/hr Doxycycline Hyclate 100 mg/ (Sodium Chloride) 100 mls @ 100 mls/hr IVPB Q12H [facility] PRN Reason: Protocol Last Admin: 10/03/17 10:10 Dose: 100 mls/hr Insulin Aspart (Novolog) 0 unit SC Q6H [facility] PRN Reason: Protocol Last Admin: 10/03/17 05:31 Dose: Not Given Insulin Glargine (Lantus) 10 unit SC [facility] Last Admin: 10/02/17 21:44 Dose: 10 units Latanoprost (Xalatan Opht) 1 ml OS HS [facility] Last Admin: 10/02/17 21:44 Dose: 1 ml Magnesium Oxide (Mag-Ox) 400 mg PO BID [facility] Last Admin: 10/03/17 10:03 Dose: 400 mg Methylprednisolone (Solu-Medrol) 40 mg IVP Q6H [facility] Last Admin: 10/03/17 09:27 Dose: Not Given Montelukast Sodium (Singulair) 10 mg PO [facility] Pantoprazole Sodium (Protonix Susp) 40 mg PO DAILY [facility] Last Admin: 10/03/17 10:03 Dose: 40 mg Rosuvastatin Calcium (Crestor) 5 mg PO HS [facility] Last Admin: 10/02/17 21:45 Dose: 5 mg Saccharomyces Boulardii (Florastor) 250 mg PO BID [facility] Last Admin: 10/03/17 10:07 Dose: 250 mg Sevelamer Carbonate (Renvela) 0.8 gm GT TIDCC [facility] Sodium Bicarbonate (Sodium Bicarbonate Tab) 650 mg PO BID [facility] Last Admin: 10/03/17 10:03 Dose: 650 mg Tamsulosin HCl (Flomax) 0.4 mg PO DAILY [facility] Last Admin: 10/03/17 10:04 Dose: 0.4 mg Timolol Maleate (Timoptic 0.25% [facility]) 1 drop OU Q12H [facility] Last Admin: 10/03/17 10:05 Dose: 1 drop Vitamin B Complex/Vit C/Folic Acid (Nephro-Fe) 1 tab PO 0800 [facility] Last Admin: 10/03/17 07:42 Dose: 1 tab - Labs Labs: 10/03/17 05:48 10/03/17 05:49 PT 15.6 SECONDS (9.7-12.2) H 09/30/17 00:35 INR 1.4 09/30/17 00:35 APTT 30 SECONDS (21-34) 09/30/17 00:35
[2017-10-03] MEDS: Sevelamer Carb 0.8 gm/Packet GT SCH ×2 (12:19→16:14)
--- NOTE | 2017-10-03 13:11 | CP.PCM.PN ---
Subjective - Date & Time of Evaluation Date of Evaluation: 10/02/17 Time of Evaluation: 16:00 - Subjective Subjective: Opens eyes, tachypnic for ICU eval. Objective - Vital Signs/Intake and Output Vital Signs (last 24 hours): Temp Pulse Resp BP Pulse Ox 97.5 F L 58 L 34 H 114/55 L 92 L 10/03/17 12:00 10/03/17 12:14 10/03/17 12:14 10/03/17 12:14 10/03/17 12:14 Intake and Output: 10/03/17 10/03/17 06:59 18:59 Intake Total 443.9 661.0 Output Total 970 700 Balance -526.1 -39.0 - Medications Medications: Current Medications Albuterol/Ipratropium (Duoneb 3 Mg/0.5 Mg (3 Ml) Ud) 3 ml INH RQ6 [facility] Last Admin: 10/03/17 08:39 Dose: 3 ml Aspirin (Aspirin Chewable) 81 mg PO DAILY [facility] Last Admin: 10/03/17 10:03 Dose: 81 mg Calcitriol (Rocaltrol) 1 mcg PEG DAILY [facility] Carvedilol (Coreg) 3.125 mg PO BID [facility] Last Admin: 10/03/17 10:02 Dose: 3.125 mg Dorzolamide HCl (Trusopt) 0 ml OU BID [facility] Last Admin: 10/03/17 10:06 Dose: 1 drop Epoetin Jacob (Procrit) 10,000 unit SC MWF [facility] Last Admin: 10/03/17 10:10 Dose: 10,000 unit Ergocalciferol (Drisdol 50,000 Intl Units Cap) 1 cap PO Q7D [facility] Last Admin: 10/02/17 10:45 Dose: 1 cap Ferrous Gluconate (Fergon) 324 mg PO TID [facility] Last Admin: 10/03/17 10:04 Dose: 324 mg Furosemide (Lasix) 40 mg PO DAILY [facility] Last Admin: 10/03/17 09:26 Dose: Not Given Piperacillin Sod/Tazobactam Sod (Zosyn 2.25 Gm Iv Premix) 2.25 gm in 50 mls @ 100 mls/hr IVPB Q6H [facility] PRN Reason: Protocol Last Admin: 10/03/17 10:13 Dose: 100 mls/hr Dexmedetomidine HCl 200 mcg/ (Sodium Chloride) 50 mls @ 4.53 mls/hr IV TITR PRN ; Protocol; 0.2 MCG/KG/HR PRN Reason: Agitation Last Admin: 10/03/17 03:33 Dose: 0.2 mcg/kg/hr, 4.53 mls/hr Vancomycin HCl 1 gm/ Sodium (Chloride) 250 mls @ 166.7 mls/hr IVPB Q24H [facility] PRN Reason: Protocol Last Admin: 10/03/17 11:15 Dose: 166.7 mls/hr Doxycycline Hyclate 100 mg/ (Sodium Chloride) 100 mls @ 100 mls/hr IVPB Q12H [facility] PRN Reason: Protocol Last Admin: 10/03/17 10:10 Dose: 100 mls/hr Insulin Aspart (Novolog) 0 unit SC Q6H [facility] PRN Reason: Protocol Last Admin: 10/03/17 12:20 Dose: Not Given Insulin Glargine (Lantus) 10 unit SC HS [facility] Last Admin: 10/02/17 21:44 Dose: 10 units Latanoprost (Xalatan Opht) 1 ml OS HS [facility] Last Admin: 10/02/17 21:44 Dose: 1 ml Magnesium Oxide (Mag-Ox) 400 mg PO BID [facility] Last Admin: 10/03/17 10:03 Dose: 400 mg Methylprednisolone (Solu-Medrol) 40 mg IVP Q6H [facility] Last Admin: 10/03/17 09:27 Dose: Not Given Montelukast Sodium (Singulair) [address] [facility] Pantoprazole Sodium (Protonix Susp) 40 mg PO DAILY [facility] Last Admin: 10/03/17 10:03 Dose: 40 mg Rosuvastatin Calcium (Crestor) 5 mg PO HS [facility] Last Admin: 10/02/17 21:45 Dose: 5 mg Saccharomyces Boulardii (Florastor) 250 mg PO BID [facility] Last Admin: 10/03/17 10:07 Dose: 250 mg Sevelamer Carbonate (Renvela) 0.8 gm GT TIDCC [facility] Last Admin: 10/03/17 12:19 Dose: 0.8 gm Sodium Bicarbonate (Sodium Bicarbonate Tab) 650 mg PO BID [facility] Last Admin: 10/03/17 10:03 Dose: 650 mg Tamsulosin HCl (Flomax) 0.4 mg PO DAILY [facility] Last Admin: 10/03/17 10:04 Dose: 0.4 mg Timolol Maleate (Timoptic 0.25% Ophth Soln) 1 drop OU Q12H [facility] Last Admin: 10/03/17 10:05 Dose: 1 drop Vitamin B Complex/Vit C/Folic Acid (Nephro-Fe) 1 tab PO 0800 [facility] Last Admin: 10/03/17 07:42 Dose: 1 tab - Labs Labs: 10/03/17 05:48 10/03/17 05:49 PT 15.6 SECONDS (9.7-12.2) H 09/30/17 00:35 INR 1.4 09/30/17 00:35 APTT 30 SECONDS (21-34) 09/30/17 00:35 - Head Exam Head Exam: ATRAUMATIC - ENT Exam ENT Exam: Mucous Membranes Dry - Respiratory Exam Respiratory Exam: Respiratory Distress - Cardiovascular Exam Cardiovascular Exam: +S1, +S2 - GI/Abdominal Exam GI & Abdominal Exam: Normal Bowel Sounds Assessment and Plan (1) Anemia Assessment & Plan: anemia of CKD and chronic disease; okay to use Procrit despite likely prostate cancer imaging suggestive on bone metastasis; likely contributing to anemia transfusion support PRN f/u FOBT Status: Acute (2) Elevated PSA Assessment & Plan: 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
--- NOTE | 2017-10-03 13:14 | CP.PCM.PN ---
Subjective - Date & Time of Evaluation Date of Evaluation: 10/03/17 Time of Evaluation: 13:10 - Subjective Subjective: Vented Objective - Vital Signs/Intake and Output Vital Signs (last 24 hours): Temp Pulse Resp BP Pulse Ox 97.5 F L 58 L 34 H 114/55 L 92 L 10/03/17 12:00 10/03/17 12:14 10/03/17 12:14 10/03/17 12:14 10/03/17 12:14 Intake and Output: 10/03/17 10/03/17 06:59 18:59 Intake Total 443.9 661.0 Output Total 970 700 Balance -526.1 -39.0 - Medications Medications: Current Medications Albuterol/Ipratropium (Duoneb 3 Mg/0.5 Mg (3 Ml) Ud) 3 ml INH RQ6 [facility] Last Admin: 10/03/17 08:39 Dose: 3 ml Aspirin (Aspirin Chewable) 81 mg PO DAILY [facility] Last Admin: 10/03/17 10:03 Dose: 81 mg Calcitriol (Rocaltrol) 1 mcg PEG DAILY [facility] Carvedilol (Coreg) 3.125 mg PO BID [facility] Last Admin: 10/03/17 10:02 Dose: 3.125 mg Dorzolamide HCl (Trusopt) 0 ml OU BID [facility] Last Admin: 10/03/17 10:06 Dose: 1 drop Epoetin Jacob (Procrit) 10,000 unit SC MWF [facility] Last Admin: 10/03/17 10:10 Dose: 10,000 unit Ergocalciferol (Drisdol 50,000 Intl Units Cap) 1 cap PO Q7D [facility] Last Admin: 10/02/17 10:45 Dose: 1 cap Ferrous Gluconate (Fergon) 324 mg PO TID [facility] Last Admin: 10/03/17 10:04 Dose: 324 mg Furosemide (Lasix) 40 mg PO DAILY [facility] Last Admin: 10/03/17 09:26 Dose: Not Given Piperacillin Sod/Tazobactam Sod (Zosyn 2.25 Gm Iv Premix) 2.25 gm in 50 mls @ 100 mls/hr IVPB Q6H [facility] PRN Reason: Protocol Last Admin: 10/03/17 10:13 Dose: 100 mls/hr Dexmedetomidine HCl 200 mcg/ (Sodium Chloride) 50 mls @ 4.53 mls/hr IV TITR PRN ; Protocol; 0.2 MCG/KG/HR PRN Reason: Agitation Last Admin: 10/03/17 03:33 Dose: 0.2 mcg/kg/hr, 4.53 mls/hr Vancomycin HCl 1 gm/ Sodium (Chloride) 250 mls @ 166.7 mls/hr IVPB Q24H [facility] PRN Reason: Protocol Last Admin: 10/03/17 11:15 Dose: 166.7 mls/hr Doxycycline Hyclate 100 mg/ (Sodium Chloride) 100 mls @ 100 mls/hr IVPB Q12H [facility] PRN Reason: Protocol Last Admin: 10/03/17 10:10 Dose: 100 mls/hr Insulin Aspart (Novolog) 0 unit SC Q6H [facility] PRN Reason: Protocol Last Admin: 10/03/17 12:20 Dose: Not Given Insulin Glargine (Lantus) 10 unit SC HS [facility] Last Admin: 10/02/17 21:44 Dose: 10 units Latanoprost (Xalatan Opht) 1 ml OS HS [facility] Last Admin: 10/02/17 21:44 Dose: 1 ml Magnesium Oxide (Mag-Ox) 400 mg PO BID [facility] Last Admin: 10/03/17 10:03 Dose: 400 mg Methylprednisolone (Solu-Medrol) 40 mg IVP Q6H [facility] Last Admin: 10/03/17 09:27 Dose: Not Given Montelukast Sodium (Singulair) 10 mg PO [facility] Pantoprazole Sodium (Protonix Susp) 40 mg PO DAILY [facility] Last Admin: 10/03/17 10:03 Dose: 40 mg Rosuvastatin Calcium (Crestor) 5 mg PO HS [facility] Last Admin: 10/02/17 21:45 Dose: 5 mg Saccharomyces Boulardii (Florastor) 250 mg PO BID [facility] Last Admin: 10/03/17 10:07 Dose: 250 mg Sevelamer Carbonate (Renvela) 0.8 gm GT TIDCC [facility] Last Admin: 10/03/17 12:19 Dose: 0.8 gm Sodium Bicarbonate (Sodium Bicarbonate Tab) 650 mg PO BID [facility] Last Admin: 10/03/17 10:03 Dose: 650 mg Tamsulosin HCl (Flomax) 0.4 mg PO DAILY [facility] Last Admin: 10/03/17 10:04 Dose: 0.4 mg Timolol Maleate (Timoptic 0.25% Ophth Soln) 1 drop OU Q12H [facility] Last Admin: 10/03/17 10:05 Dose: 1 drop Vitamin B Complex/Vit C/Folic Acid (Nephro-Fe) 1 tab PO 0800 [facility] Last Admin: 10/03/17 07:42 Dose: 1 tab - Labs Labs: 10/03/17 05:48 10/03/17 05:49 PT 15.6 SECONDS (9.7-12.2) H 09/30/17 00:35 INR 1.4 09/30/17 00:35 APTT 30 SECONDS (21-34) 09/30/17 00:35 - Head Exam Head Exam: ATRAUMATIC - Eye Exam Eye Exam: Normal appearance - ENT Exam ENT Exam: Mucous Membranes Dry - Respiratory Exam Respiratory Exam: Decreased Breath Sounds - Cardiovascular Exam Cardiovascular Exam: +S1, +S2 - GI/Abdominal Exam GI & Abdominal Exam: Normal Bowel Sounds Assessment and Plan (1) Anemia Assessment & Plan: anemia of CKD and chronic disease; okay to use Procrit despite likely prostate cancer imaging suggestive on bone metastasis; likely contributing to anemia transfusion support PRN f/u FOBT Status: Acute (2) Elevated PSA Assessment & Plan: 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
[2017-10-03 13:19] LABS: ABG ALLEN TEST POS; ARTERIAL BLOOD GAS HCO3 22.7 mmol/L (21-28); ARTERIAL BLOOD GAS O2 SAT 95.1 % (95-98); ARTERIAL BLOOD GAS PCO2 30 mm/Hg (35-45); ARTERIAL BLOOD GAS PH 7.44 (7.35-7.45); ARTERIAL BLOOD GAS PO2 61 mm/Hg (80-100); ARTERIAL BLOOD GAS TCO2 21.3 mmol/L (22-28)
[2017-10-03] MEDS: Dexmedetomidine 200 MCG in NS 0.9% 48 ML IV PRN ×2 (17:15→23:44)
--- NOTE | 2017-10-03 17:44 | CP.PCM.PN ---
Subjective - Date & Time of Evaluation Date of Evaluation: 10/03/17 Time of Evaluation: 10:20 - Subjective Subjective: clinically same Objective - Vital Signs/Intake and Output Vital Signs (last 24 hours): Temp Pulse Resp BP Pulse Ox 98.3 F 60 30 H 144/62 96 10/03/17 16:00 10/03/17 16:15 10/03/17 16:15 10/03/17 16:15 10/03/17 16:15 Intake and Output: 10/03/17 10/03/17 06:59 18:59 Intake Total 443.9 810.4 Output Total 970 700 Balance -526.1 110.4 - Medications Medications: Current Medications Albuterol/Ipratropium (Duoneb 3 Mg/0.5 Mg (3 Ml) Ud) 3 ml INH RQ6 [facility] Last Admin: 10/03/17 13:31 Dose: 3 ml Aspirin (Aspirin Chewable) 81 mg PO DAILY [facility] Last Admin: 10/03/17 10:03 Dose: 81 mg Calcitriol (Rocaltrol) 1 mcg PEG DAILY [facility] Carvedilol (Coreg) 3.125 mg PO BID [facility] Last Admin: 10/03/17 17:09 Dose: 3.125 mg Dorzolamide HCl (Trusopt) 0 ml OU BID [facility] Last Admin: 10/03/17 17:08 Dose: 1 drop Epoetin Jacob (Procrit) 10,000 unit SC MWF [facility] Last Admin: 10/03/17 10:10 Dose: 10,000 unit Ergocalciferol (Drisdol 50,000 Intl Units Cap) 1 cap PO Q7D [facility] Last Admin: 10/02/17 10:45 Dose: 1 cap Ferrous Gluconate (Fergon) 324 mg PO TID [facility] Last Admin: 10/03/17 17:09 Dose: 324 mg Furosemide (Lasix) 40 mg PO DAILY [facility] Last Admin: 10/03/17 09:26 Dose: Not Given Piperacillin Sod/Tazobactam Sod (Zosyn 2.25 Gm Iv Premix) 2.25 gm in 50 mls @ 100 mls/hr IVPB Q6H [facility] PRN Reason: Protocol Last Admin: 10/03/17 15:25 Dose: 100 mls/hr Dexmedetomidine HCl 200 mcg/ (Sodium Chloride) 50 mls @ 4.53 mls/hr IV TITR PRN ; Protocol; 0.2 MCG/KG/HR PRN Reason: Agitation Last Titration: 10/03/17 13:45 Dose: 0.23 mcg/kg/hr, 5.3 mls/hr Vancomycin HCl 1 gm/ Sodium (Chloride) 250 mls @ 166.7 mls/hr IVPB Q24H [facility] PRN Reason: Protocol Last Admin: 10/03/17 11:15 Dose: 166.7 mls/hr Doxycycline Hyclate 100 mg/ (Sodium Chloride) 100 mls @ 100 mls/hr IVPB Q12H [facility] PRN Reason: Protocol Last Admin: 10/03/17 10:10 Dose: 100 mls/hr Dexmedetomidine HCl 200 mcg/ (Sodium Chloride) 50 mls @ 6.81 mls/hr IV TITR PRN ; 0.385 MCG/KG/HR PRN Reason: Protocol Last Admin: 10/03/17 17:15 Dose: 0.3 mcg/kg/hr, 5.3 mls/hr Insulin Aspart (Novolog) 0 unit SC Q6H [facility] PRN Reason: Protocol Last Admin: 10/03/17 12:20 Dose: Not Given Insulin Glargine (Lantus) 10 unit SC HS [facility] Last Admin: 10/02/17 21:44 Dose: 10 units Latanoprost (Xalatan Opht) 1 ml OS HS [facility] Last Admin: 10/02/17 21:44 Dose: 1 ml Magnesium Oxide (Mag-Ox) 400 mg PO BID [facility] Last Admin: 10/03/17 17:09 Dose: 400 mg Methylprednisolone (Solu-Medrol) 40 mg IVP Q6H [facility] Last Admin: 10/03/17 15:24 Dose: 40 mg Montelukast Sodium (Singulair) 10 mg PO HS [facility] Pantoprazole Sodium (Protonix Susp) 40 mg PO DAILY [facility] Last Admin: 10/03/17 10:03 Dose: 40 mg Rosuvastatin Calcium (Crestor) 5 mg PO HS [facility] Last Admin: 10/02/17 21:45 Dose: 5 mg Saccharomyces Boulardii (Florastor) 250 mg PO BID [facility] Last Admin: 10/03/17 17:09 Dose: 250 mg Sevelamer Carbonate (Renvela) 0.8 gm GT TIDCC [facility] Last Admin: 10/03/17 16:14 Dose: 0.8 gm Sodium Bicarbonate (Sodium Bicarbonate Tab) 650 mg PO BID [facility] Last Admin: 10/03/17 17:09 Dose: 650 mg Tamsulosin HCl (Flomax) 0.4 mg PO DAILY [facility] Last Admin: 10/03/17 10:04 Dose: 0.4 mg Timolol Maleate (Timoptic 0.25% Ophth Soln) 1 drop OU Q12H [facility] Last Admin: 10/03/17 10:05 Dose: 1 drop Vitamin B Complex/Vit C/Folic Acid (Nephro-Fe) 1 tab PO 0800 [facility] Last Admin: 10/03/17 07:42 Dose: 1 tab - Labs Labs: 10/03/17 05:48 10/03/17 05:49 PT 15.6 SECONDS (9.7-12.2) H 09/30/17 00:35 INR 1.4 09/30/17 00:35 APTT 30 SECONDS (21-34) 09/30/17 00:35 - Constitutional Appears: Well - Head Exam Head Exam: ATRAUMATIC, NORMAL INSPECTION, NORMOCEPHALIC - Eye Exam Eye Exam: EOMI, Normal appearance, PERRL Pupil Exam: NORMAL ACCOMODATION, PERRL - ENT Exam ENT Exam: Mucous Membranes Moist, Normal Exam - Neck Exam Neck Exam: Full ROM, Normal Inspection. absent: Lymphadenopathy - Respiratory Exam Respiratory Exam: Decreased Breath Sounds - Cardiovascular Exam Cardiovascular Exam: REGULAR RHYTHM, +S1, +S2 - GI/Abdominal Exam GI & Abdominal Exam: Soft, Diminished Bowel Sounds - Rectal Exam Rectal Exam: Deferred
[2017-10-03] MEDS: (Lantus) Insulin Glargine, Recombinant SC SCH (21:06)
[2017-10-03] MEDS: Latanoprost 2.5 ml Opht Soln OS SCH (21:07)
[2017-10-04] MEDS: (Novolog) Insulin Aspart, Recombinant 100 u/ml 10 ml vial SC SCH ×4 (00:01→21:39)
[2017-10-04] MEDS: Albuterol-Ipratrop 3 mg / 0.5 (3 ml) UD INH SCH ×4 (01:32→19:53)
[2017-10-04] MEDS: MethylPREDNISolone 40 mg Vial IVP SCH ×2 (03:24→09:37)
[2017-10-04] MEDS: Piperacill/Tazo 2.25gm in Dex 2.25 GM/50 ML BAG IVPB SCH ×4 (03:24→21:41)
[2017-10-04 05:49] LABS: ABG ALLEN TEST POS; ARTERIAL BLOOD GAS HCO3 23.6 mmol/L (21-28); ARTERIAL BLOOD GAS HEMOGLOBIN 10.9 g/dL (11.7-17.4); ARTERIAL BLOOD GAS O2 SAT 98.9 % (95-98); ARTERIAL BLOOD GAS PCO2 28 mm/Hg (35-45); ARTERIAL BLOOD GAS PH 7.48 (7.35-7.45); ARTERIAL BLOOD GAS PO2 94 mm/Hg (80-100); ARTERIAL BLOOD GAS TCO2 21.8 mmol/L (22-28)
[2017-10-04 06:34] LABS: BASO % 0.2 % (0.0-2.0); HEMOGLOBIN 10.3 g/dL (12.0-18.0); LYMPH # 0.8 K/uL (1.0-4.3); LYMPH % 9.1 % (20.0-40.0); MEAN CELL VOLUME 86.6 fL (80.0-94.0); MEAN CORPUSCULAR HEMOGLOBIN 30.2 pg (27.0-31.0); MEAN CORPUSCULAR HGB CONC 34.9 g/dL (33.0-37.0); MEAN PLATELET VOLUME 7.9 fL (7.2-11.7); MONO # 0.4 K/uL (0.0-0.8); MONO % 4.8 % (0.0-10.0); NEUT # 7.3 K/uL (1.8-7.0); NEUT % 85.9 % (50.0-75.0); PLATELET COUNT 333 K/uL (130-400); RED CELL DISTRIBUTION WIDTH 14.7 % (11.5-14.5); WHITE BLOOD COUNT 8.4 K/uL (4.8-10.8)
[2017-10-04 06:46] LABS: ALB/GLOB RATIO 0.7 (1.0-2.1); ALBUMIN 3.1 g/dL (3.5-5.0); CALCIUM 8.4 mg/dl (8.6-10.4)
[2017-10-04] MEDS: Sevelamer Carb 0.8 gm/Packet GT SCH ×3 (08:35→17:49)
[2017-10-04 09:18] LABS: ANISOCYTOSIS SLIGHT; BANDS 2 % (0-2); LYMPHOCYTE 8 % (20-40); MONOCYTE 5 % (0-10); NEUTROPHIL 85 % (50-75); PLATELET ESTIMATE NORMAL (NORMAL); TOTAL CELLS COUNTED 100
[2017-10-04 09:19] LABS: LARGE PLATELETS PRESENT
[2017-10-04] MEDS: Dexmedetomidine 200 MCG in NS 0.9% 48 ML IV PRN (09:31)
[2017-10-04] MEDS: Saccharomyces Boulardi 250 mg Cap PO SCH ×2 (09:36→18:44)
[2017-10-04] MEDS: Magnesium Oxide 400 mg Tab UD PO SCH ×2 (09:36→18:37)
[2017-10-04] MEDS: Dorzolamide 2% Opht Sol 10ml OU SCH ×2 (09:44→18:41)
--- NOTE | 2017-10-04 09:50 | RAD ---
PROCEDURE: CHEST RADIOGRAPH, 1 VIEW HISTORY: CHF COMPARISON: Comparison made with prior study 10/03/[address] scan chest dated 10/02/2017 FINDINGS: In situ ETT tip of which lies approximately 6.67 cm above nichol. In situ NGT the tip of which has not been included on this film though distal aspect does lie well below EG junction. . No change right-sided PICC line. LUNGS: Re- demonstrated are patchy infiltrate changes seen in the lower lobes left greater than right, lingular region and left upper lobe PLEURA: Bilateral effusions right larger than left less well seen on this study compared to high-resolution CT chest CARDIOVASCULAR: Normal. OSSEOUS STRUCTURES: No significant abnormalities. VISUALIZED UPPER ABDOMEN: Normal. OTHER FINDINGS: None. IMPRESSION: Support lines and tubes as above. Patchy bilateral infiltrates again noted as above. Bilateral effusions right larger than left, less well seen on this study compared to high-resolution CT chest
[2017-10-04] MEDS: Timolol 0.25% Ophth SOLN OU SCH ×2 (10:43→21:42)
[2017-10-04] MEDS: Pantoprazole 40 mg Susp UD PO SCH (10:43)
[2017-10-04] MEDS: Calcitriol 1 mcg/ml Oral Soln (15 ml) PEG SCH (10:43)
[2017-10-04] MEDS: Multivitamin Vitamin B Complex (Nephro-Vite) Tab PO SCH (10:45)
--- NOTE | 2017-10-04 12:03 | CP.CCUPN ---
CCU Subjective - Physician Review Subjective (Free Text): 10/04/17 12:02 awake alert, events overnight reviewed Critical Care Time Spent (in minutes): 35 CCU Objective - Vital Signs / Intake & Output Vital Signs (Last 4 hours): Vital Signs Pulse Resp BP Pulse Ox 10/04/17 10:14 58 L 26 H 149/61 99 10/04/17 10:00 61 17 97 10/04/17 09:35 115/78 10/04/17 09:14 57 L 24 145/61 98 10/04/17 09:00 56 L 23 98 10/04/17 08:15 61 24 145/52 L 99 Intake and Output (Last 8hrs): Intake & Output 10/03/17 10/04/17 10/04/17 22:59 06:59 14:59 Intake Total 715.8 452 149.9 Output Total 600 1000 800 Balance 115.8 -548 -650.1 Weight 156 lb Intake: IV 50 36 14 Intake, IV Amount 195.8 106 15.9 Left Forearm 150 50 Right PICC 45.8 56 15.9 Oral 200 Tube Feeding 210 250 120 Other 60 60 Output: Urine 600 1000 800 Urethral (Garcia) 600 1000 800 Other: # Bowel Movements 0 0 - Physical Exam Head: Positive for: Atraumatic, Normocephalic Pupils: Positive for: Sluggish Conjunctiva: Positive for: Normal Mouth: Positive for: Moist Mucous Membranes, Other (Endotracheal tube and OGT in place) Respiratory/Chest: Positive for: Clear to Auscultation. Negative for: Wheezes, Rales, Rhonchi Abdomen: Positive for: Normal Bowel Sounds. Negative for: Tenderness Upper Extremity: Negative for: Edema Lower Extremity: Negative for: Edema Skin: Positive for: Warm, Dry Psychiatric: Positive for: Alert, Oriented x 3 - Medications Active Medications: Active Medications Generic Name Dose Route Start Last Admin Trade Name Freq PRN Reason Stop Dose Admin Albuterol/Ipratropium 3 ml 09/30/17 14:00 10/04/17 08:05 Duoneb 3 Mg/0.5 Mg (3 Ml) Ud INH 3 ml RQ6 [facility] Administration Aspirin 81 mg 09/30/17 10:00 10/04/17 09:36 Aspirin Chewable PO 81 mg DAILY [facility] Administration Calcitriol 1 mcg 10/04/17 10:00 10/04/17 10:43 Rocaltrol PEG Not Given DAILY [facility] Carvedilol 3.125 mg 09/30/17 10:00 10/04/17 10:46 Coreg PO Not Given BID [facility] Dorzolamide HCl 0 ml 10/01/17 10:00 10/04/17 09:44 Trusopt OU 1 drop BID [facility] Administration Epoetin Jacob 10,000 unit 10/01/17 16:00 10/03/17 10:10 Procrit SC 10,000 unit MWF [facility] Administration Ergocalciferol 1 cap 10/02/17 10:30 10/02/17 10:45 Drisdol 50,000 Intl Units Cap PO 1 cap Q7D [facility] Administration Ferrous Gluconate 324 mg 09/30/17 10:00 10/04/17 09:41 Fergon PO 324 mg TID [facility] Administration Furosemide 40 mg 09/30/17 10:00 10/04/17 09:35 Lasix PO 40 mg DAILY [facility] Administration Piperacillin Sod/Tazobactam Sod 2.25 gm in 50 mls @ 100 mls/hr 09/30/17 10:00 10/04/17 09:38 Zosyn 2.25 Gm Iv Premix IVPB 100 mls/hr Q6H [facility] Administration Protocol Doxycycline Hyclate 100 mg/ 100 mls @ 100 mls/hr 10/03/17 10:00 10/04/17 09: 43 Sodium Chloride IVPB 100 mls/hr Q12H [facility] Administration Protocol Insulin Aspart 0 unit 10/04/17 16:30 Novolog SC ACHS [facility] Protocol Insulin Glargine 10 unit 09/30/17 22:00 10/03/17 21:06 Lantus SC 10 units HS [facility] Administration Latanoprost 1 ml 09/30/17 22:00 10/03/17 21:07 Xalatan Opht OS 1 ml HS [facility] Administration Magnesium Oxide 400 mg 09/30/17 10:00 10/04/17 09:36 Mag-Ox PO 400 mg BID [facility] Administration Montelukast Sodium 10 mg 10/03/17 22:00 10/04/17 09:34 Singulair PO 10 mg HS [facility] Administration Pantoprazole Sodium 40 mg 10/03/17 10:00 10/04/17 10:43 Protonix Susp PO Not Given DAILY [facility] Rosuvastatin Calcium 5 mg 09/30/17 22:00 10/03/17 21:07 Crestor PO 5 mg HS [facility] Administration Saccharomyces Boulardii 250 mg 09/30/17 10:00 10/04/17 09:36 Florastor PO 250 mg BID [facility] Administration Sevelamer Carbonate 0.8 gm 10/03/17 12:00 10/04/17 08:35 Renvela GT 0.8 gm TIDCC [facility] Administration Sodium Bicarbonate 650 mg 09/30/17 10:00 10/04/17 09:35 Sodium Bicarbonate Tab PO 650 mg BID [facility] Administration Tamsulosin HCl 0.4 mg 09/30/17 10:00 10/04/17 10:46 Flomax PO Not Given DAILY [facility] Timolol Maleate 1 drop 09/30/17 09:45 10/04/17 10:43 Timoptic 0.25% Ophth Soln OU Not Given Q12H [facility] Vitamin B Complex/Vit C/Folic Acid 1 tab 10/01/17 08:00 10/04/17 10:45 Nephro-Fe PO Not Given 0800 [facility] - Patient Studies Lab Studies: Microbiology Studies 10/02/17 21:46 Gram Stain - Final Trachasp Sputum Culture - Final Yeast Species 10/02/17 Unknown MRSA Culture (Admit) - Final Naris MRSA NOT DETECTED 10/02/17 21:46 Urine Culture - Final Urine,Garcia No Growth (<1,000 CFU/ML) Lab Studies 10/04/17 10/04/17 10/04/17 Range/Units 11:27 06:21 06:21 WBC 8.4 (4.8-10.8) K/uL RBC 3.40 L (4.40-5.90) Mil/uL Hgb 10.3 L (12.0-18.0) g/dL Hct 29.4 L (35.0-51.0) % MCV 86.6 (80.0-94.0) fL MCH 30.2 (27.0-31.0) pg MCHC 34.9 (33.0-37.0) g/dL RDW 14.7 H (11.5-14.5) % Plt Count 333 (130-400) K/uL MPV 7.9 (7.2-11.7) fL Neut % (Auto) 85.9 H (50.0-75.0) % Lymph % (Auto) 9.1 L (20.0-40.0) % [place] % (Auto) 4.8 (0.0-10.0) % Eos % (Auto) 0.0 (0.0-4.0) % Baso % (Auto) 0.2 (0.0-2.0) % Neut # (Auto) 7.3 H (1.8-7.0) K/uL Lymph # (Auto) 0.8 L (1.0-4.3) K/uL [place] # (Auto) 0.4 (0.0-0.8) K/uL Eos # (Auto) 0.0 (0.0-0.7) K/uL Baso # (Auto) 0.0 (0.0-0.2) K/uL Neutrophils % (Manual) 85 H (50-75) % Band Neutrophils % 2 (0-2) % Lymphocytes % (Manual) 8 L (20-40) % Monocytes % (Manual) 5 (0-10) % Platelet Estimate Normal (NORMAL) Large Platelets Present Anisocytosis (manual) Slight Puncture Site pCO2 (35-45) mm/Hg pO2 (80-100) mm/Hg HCO3 (21-28) mmol/L ABG pH (7.35-7.45) ABG Total CO2 (22-28) mmol/L ABG O2 Saturation (95-98) % ABG Base Excess (-2.0-3.0) mmol/L ABG Hemoglobin (11.7-17.4) g/dL ABG Carboxyhemoglobin (0.5-1.5) % POC ABG HHb (Measured) (0.0-5.0) % ABG Methemoglobin (0.0-3.0) % Vijay Test ABG Potassium (3.6-5.2) mmol/L A-a O2 Difference mm/Hg Respiratory Index Hgb O2 Saturation (95.0-98.0) % Sodium 139 (132-148) mmol/l Chloride 102 (98-107) mmol/L Glucose (75-110) mg/dl Lactate (0.7-2.1) mmol/L Vent Mode Mechanical Rate FiO2 % PEEP Pressure Support CPAP Potassium 5.3 H (3.6-5.2) mmol/L Carbon Dioxide 20 L (22-30) mmol/L Anion Gap 23 H (10-20) BUN 79 H (9-20) mg/dL Creatinine 4.6 H (0.8-1.5) mg/dL Est GFR ( Amer) 15 Est GFR (Non-Af Amer) 12 POC Glucose (mg/dL) 238 H (65-110) mg/dL Random Glucose 235 H (75-110) mg/dL Calcium 8.4 L (8.6-10.4) mg/dl Phosphorus 6.4 H (2.5-4.5) mg/dL Magnesium 2.4 H (1.6-2.3) mg/dL Total Bilirubin 0.5 (0.2-1.3) mg/dL AST 42 (17-59) U/L ALT 79 H D (21-72) U/L Alkaline Phosphatase 97 (38-126) U/L Total Protein 7.7 (6.3-8.3) g/dL Albumin 3.1 L (3.5-5.0) g/dL Globulin 4.6 H (2.2-3.9) gm/dL Albumin/Globulin Ratio 0.7 L (1.0-2.1) PTH Intact Whole Molec (14-64) pg/mL Arterial Blood Potassium (3.6-5.2) mmol/L 10/04/17 10/04/17 10/03/17 Range/Units 05:31 05:24 23:48 WBC (4.8-10.8) K/uL RBC (4.40-5.90) Mil/uL Hgb (12.0-18.0) g/dL Hct (35.0-51.0) % MCV (80.0-94.0) fL MCH (27.0-31.0) pg MCHC (33.0-37.0) g/dL RDW (11.5-14.5) % Plt Count (130-400) K/uL MPV (7.2-11.7) fL Neut % (Auto) (50.0-75.0) % Lymph % (Auto) (20.0-40.0) % [place] % (Auto) (0.0-10.0) % Eos % (Auto) (0.0-4.0) % Baso % (Auto) (0.0-2.0) % Neut # (Auto) (1.8-7.0) K/uL Lymph # (Auto) (1.0-4.3) K/uL [place] # (Auto) (0.0-0.8) K/uL Eos # (Auto) (0.0-0.7) K/uL Baso # (Auto) (0.0-0.2) K/uL Neutrophils % (Manual) (50-75) % Band Neutrophils % (0-2) % Lymphocytes % (Manual) (20-40) % Monocytes % (Manual) (0-10) % Platelet Estimate (NORMAL) Large Platelets Anisocytosis (manual) Puncture Site R rad pCO2 28 L (35-45) mm/Hg pO2 94 (80-100) mm/Hg HCO3 23.6 (21-28) mmol/L ABG pH 7.48 H (7.35-7.45) ABG Total CO2 21.8 L (22-28) mmol/L ABG O2 Saturation 98.9 H (95-98) % ABG Base Excess -1.7 (-2.0-3.0) mmol/L ABG Hemoglobin 10.9 L (11.7-17.4) g/dL ABG Carboxyhemoglobin 1.7 H (0.5-1.5) % POC ABG HHb (Measured) 1.1 (0.0-5.0) % ABG Methemoglobin 1.2 (0.0-3.0) % Vijay Test Pos ABG Potassium (3.6-5.2) mmol/L A-a O2 Difference 49.0 mm/Hg Respiratory Index 0.5 Hgb O2 Saturation 96.0 (95.0-98.0) % Sodium (132-148) mmol/l Chloride (98-107) mmol/L Glucose (75-110) mg/dl Lactate (0.7-2.1) mmol/L Vent Mode A/c pc Mechanical Rate 12 FiO2 25.0 % PEEP 5 Pressure Support CPAP Potassium (3.6-5.2) mmol/L Carbon Dioxide (22-30) mmol/L Anion Gap (10-20) BUN (9-20) mg/dL Creatinine (0.8-1.5) mg/dL Est GFR ( Amer) Est GFR (Non-Af Amer) POC Glucose (mg/dL) 251 H 211 H (65-110) mg/dL Random Glucose (75-110) mg/dL Calcium (8.6-10.4) mg/dl Phosphorus (2.5-4.5) mg/dL Magnesium (1.6-2.3) mg/dL Total Bilirubin (0.2-1.3) mg/dL AST (17-59) U/L ALT (21-72) U/L Alkaline Phosphatase (38-126) U/L Total Protein (6.3-8.3) g/dL Albumin (3.5-5.0) g/dL Globulin (2.2-3.9) gm/dL Albumin/Globulin Ratio (1.0-2.1) PTH Intact Whole Molec (14-64) pg/mL Arterial Blood Potassium (3.6-5.2) mmol/L 10/03/17 10/03/17 10/03/17 Range/Units 17:18 13:16 12:04 WBC (4.8-10.8) K/uL RBC (4.40-5.90) Mil/uL Hgb (12.0-18.0) g/dL Hct (35.0-51.0) % MCV (80.0-94.0) fL MCH (27.0-31.0) pg MCHC (33.0-37.0) g/dL RDW (11.5-14.5) % Plt Count (130-400) K/uL MPV (7.2-11.7) fL Neut % (Auto) (50.0-75.0) % Lymph % (Auto) (20.0-40.0) % [place] % (Auto) (0.0-10.0) % Eos % (Auto) (0.0-4.0) % Baso % (Auto) (0.0-2.0) % Neut # (Auto) (1.8-7.0) K/uL Lymph # (Auto) (1.0-4.3) K/uL [place] # (Auto) (0.0-0.8) K/uL Eos # (Auto) (0.0-0.7) K/uL Baso # (Auto) (0.0-0.2) K/uL Neutrophils % (Manual) (50-75) % Band Neutrophils % (0-2) % Lymphocytes % (Manual) (20-40) % Monocytes % (Manual) (0-10) % Platelet Estimate (NORMAL) Large Platelets Anisocytosis (manual) Puncture Site Rr pCO2 30 L (35-45) mm/Hg pO2 61 L (80-100) mm/Hg HCO3 22.7 (21-28) mmol/L ABG pH 7.44 (7.35-7.45) ABG Total CO2 21.3 L (22-28) mmol/L ABG O2 Saturation 95.1 (95-98) % ABG Base Excess -2.7 L (-2.0-3.0) mmol/L ABG Hemoglobin (11.7-17.4) g/dL ABG Carboxyhemoglobin (0.5-1.5) % POC ABG HHb (Measured) (0.0-5.0) % ABG Methemoglobin (0.0-3.0) % Vijay Test Pos ABG Potassium 5.1 (3.6-5.2) mmol/L A-a O2 Difference 80.0 mm/Hg Respiratory Index 1.3 Hgb O2 Saturation (95.0-98.0) % Sodium 134.0 (132-148) mmol/l Chloride 104.0 (98-107) mmol/L Glucose 143 H (75-110) mg/dl Lactate 0.6 L (0.7-2.1) mmol/L Vent Mode Cpap Mechanical Rate FiO2 25.0 % PEEP Pressure Support 12 CPAP 5 Potassium (3.6-5.2) mmol/L Carbon Dioxide (22-30) mmol/L Anion Gap (10-20) BUN (9-20) mg/dL Creatinine (0.8-1.5) mg/dL Est GFR ( Amer) Est GFR (Non-Af Amer) POC Glucose (mg/dL) 174 H 140 H (65-110) mg/dL Random Glucose (75-110) mg/dL Calcium (8.6-10.4) mg/dl Phosphorus (2.5-4.5) mg/dL Magnesium (1.6-2.3) mg/dL Total Bilirubin (0.2-1.3) mg/dL AST (17-59) U/L ALT (21-72) U/L Alkaline Phosphatase (38-126) U/L Total Protein (6.3-8.3) g/dL Albumin (3.5-5.0) g/dL Globulin (2.2-3.9) gm/dL Albumin/Globulin Ratio (1.0-2.1) PTH Intact Whole Molec (14-64) pg/mL Arterial Blood Potassium 5.1 (3.6-5.2) mmol/L 10/02/17 Range/Units 08:25 WBC (4.8-10.8) K/uL RBC (4.40-5.90) Mil/uL Hgb (12.0-18.0) g/dL Hct (35.0-51.0) % MCV (80.0-94.0) fL MCH (27.0-31.0) pg MCHC (33.0-37.0) g/dL RDW (11.5-14.5) % Plt Count (130-400) K/uL MPV (7.2-11.7) fL Neut % (Auto) (50.0-75.0) % Lymph % (Auto) (20.0-40.0) % [place] % (Auto) (0.0-10.0) % Eos % (Auto) (0.0-4.0) % Baso % (Auto) (0.0-2.0) % Neut # (Auto) (1.8-7.0) K/uL Lymph # (Auto) (1.0-4.3) K/uL [place] # (Auto) (0.0-0.8) K/uL Eos # (Auto) (0.0-0.7) K/uL Baso # (Auto) (0.0-0.2) K/uL Neutrophils % (Manual) (50-75) % Band Neutrophils % (0-2) % Lymphocytes % (Manual) (20-40) % Monocytes % (Manual) (0-10) % Platelet Estimate (NORMAL) Large Platelets Anisocytosis (manual) Puncture Site pCO2 (35-45) mm/Hg pO2 (80-100) mm/Hg HCO3 (21-28) mmol/L ABG pH (7.35-7.45) ABG Total CO2 (22-28) mmol/L ABG O2 Saturation (95-98) % ABG Base Excess (-2.0-3.0) mmol/L ABG Hemoglobin (11.7-17.4) g/dL ABG Carboxyhemoglobin (0.5-1.5) % POC ABG HHb (Measured) (0.0-5.0) % ABG Methemoglobin (0.0-3.0) % Vijay Test ABG Potassium (3.6-5.2) mmol/L A-a O2 Difference mm/Hg Respiratory Index Hgb O2 Saturation (95.0-98.0) % Sodium (132-148) mmol/l Chloride (98-107) mmol/L Glucose (75-110) mg/dl Lactate (0.7-2.1) mmol/L Vent Mode Mechanical Rate FiO2 % PEEP Pressure Support CPAP Potassium (3.6-5.2) mmol/L Carbon Dioxide (22-30) mmol/L Anion Gap (10-20) BUN (9-20) mg/dL Creatinine (0.8-1.5) mg/dL Est GFR ( Amer) Est GFR (Non-Af Amer) POC Glucose (mg/dL) (65-110) mg/dL Random Glucose (75-110) mg/dL Calcium (8.6-10.4) mg/dl Phosphorus (2.5-4.5) mg/dL Magnesium (1.6-2.3) mg/dL Total Bilirubin (0.2-1.3) mg/dL AST (17-59) U/L ALT (21-72) U/L Alkaline Phosphatase (38-126) U/L Total Protein (6.3-8.3) g/dL Albumin (3.5-5.0) g/dL Globulin (2.2-3.9) gm/dL Albumin/Globulin Ratio (1.0-2.1) PTH Intact Whole Molec 163 H (14-64) pg/mL Arterial Blood Potassium (3.6-5.2) mmol/L Laboratory Results - last 24 hr 10/02/17 10/03/17 10/03/17 08:25 12:04 13:16 WBC RBC Hgb Hct MCV MCH MCHC RDW Plt Count MPV Neut % (Auto) Lymph % (Auto) [place] % (Auto) Eos % (Auto) Baso % (Auto) Neut # (Auto) Lymph # (Auto) [place] # (Auto) Eos # (Auto) Baso # (Auto) Neutrophils % (Manual) Band Neutrophils % Lymphocytes % (Manual) Monocytes % (Manual) Platelet Estimate Large Platelets Anisocytosis (manual) Puncture Site Rr pCO2 30 L pO2 61 L HCO3 22.7 ABG pH 7.44 ABG Total CO2 21.3 L ABG O2 Saturation 95.1 ABG Base Excess -2.7 L ABG Hemoglobin ABG Carboxyhemoglobin POC ABG HHb (Measured) ABG Methemoglobin Vijay Test Pos ABG Potassium 5.1 A-a O2 Difference 80.0 Respiratory Index 1.3 Hgb O2 Saturation Sodium 134.0 Chloride 104.0 Glucose 143 H Lactate 0.6 L Vent Mode Cpap Mechanical Rate FiO2 25.0 PEEP Pressure Support 12 CPAP 5 Potassium Carbon Dioxide Anion Gap BUN Creatinine Est GFR ( Amer) Est GFR (Non-Af Amer) POC Glucose (mg/dL) 140 H Random Glucose Calcium Phosphorus Magnesium Total Bilirubin AST ALT Alkaline Phosphatase Total Protein Albumin Globulin Albumin/Globulin Ratio PTH Intact Whole Molec 163 H Arterial Blood Potassium 5.1 10/03/17 10/03/17 10/04/17 17:18 23:48 05:24 WBC RBC Hgb Hct MCV MCH MCHC RDW Plt Count MPV Neut % (Auto) Lymph % (Auto) [place] % (Auto) Eos % (Auto) Baso % (Auto) Neut # (Auto) Lymph # (Auto) [place] # (Auto) Eos # (Auto) Baso # (Auto) Neutrophils % (Manual) Band Neutrophils % Lymphocytes % (Manual) Monocytes % (Manual) Platelet Estimate Large Platelets Anisocytosis (manual) Puncture Site pCO2 pO2 HCO3 ABG pH ABG Total CO2 ABG O2 Saturation ABG Base Excess ABG Hemoglobin ABG Carboxyhemoglobin POC ABG HHb (Measured) ABG Methemoglobin Vijay Test ABG Potassium A-a O2 Difference Respiratory Index Hgb O2 Saturation Sodium Chloride Glucose Lactate Vent Mode Mechanical Rate FiO2 PEEP Pressure Support CPAP Potassium Carbon Dioxide Anion Gap BUN Creatinine Est GFR ( Amer) Est GFR (Non-Af Amer) POC Glucose (mg/dL) 174 H 211 H 251 H Random Glucose Calcium Phosphorus Magnesium Total Bilirubin AST ALT Alkaline Phosphatase Total Protein Albumin Globulin Albumin/Globulin Ratio PTH Intact Whole Molec Arterial Blood Potassium 10/04/17 10/04/17 10/04/17 05:31 06:21 06:21 WBC 8.4 RBC 3.40 L Hgb 10.3 L Hct 29.4 L MCV 86.6 MCH 30.2 MCHC 34.9 RDW 14.7 H Plt Count 333 MPV 7.9 Neut % (Auto) 85.9 H Lymph % (Auto) 9.1 L [place] % (Auto) 4.8 Eos % (Auto) 0.0 Baso % (Auto) 0.2 Neut # (Auto) 7.3 H Lymph # (Auto) 0.8 L [place] # (Auto) 0.4 Eos # (Auto) 0.0 Baso # (Auto) 0.0 Neutrophils % (Manual) 85 H Band Neutrophils % 2 Lymphocytes % (Manual) 8 L Monocytes % (Manual) 5 Platelet Estimate Normal Large Platelets Present Anisocytosis (manual) Slight Puncture Site R rad pCO2 28 L pO2 94 HCO3 23.6 ABG pH 7.48 H ABG Total CO2 21.8 L ABG O2 Saturation 98.9 H ABG Base Excess -1.7 ABG Hemoglobin 10.9 L ABG Carboxyhemoglobin 1.7 H POC ABG HHb (Measured) 1.1 ABG Methemoglobin 1.2 Vijay Test Pos ABG Potassium A-a O2 Difference 49.0 Respiratory Index 0.5 Hgb O2 Saturation 96.0 Sodium 139 Chloride 102 Glucose Lactate Vent Mode A/c pc Mechanical Rate 12 FiO2 25.0 PEEP 5 Pressure Support CPAP Potassium 5.3 H Carbon Dioxide 20 L Anion Gap 23 H BUN 79 H Creatinine 4.6 H Est GFR ( Amer) 15 Est GFR (Non-Af Amer) 12 POC Glucose (mg/dL) Random Glucose 235 H Calcium 8.4 L Phosphorus 6.4 H Magnesium 2.4 H Total Bilirubin 0.5 AST 42 ALT 79 H D Alkaline Phosphatase 97 Total Protein 7.7 Albumin 3.1 L Globulin 4.6 H Albumin/Globulin Ratio 0.7 L PTH Intact Whole Molec Arterial Blood Potassium 10/04/17 11:27 WBC RBC Hgb Hct MCV MCH MCHC RDW Plt Count MPV Neut % (Auto) Lymph % (Auto) [place] % (Auto) Eos % (Auto) Baso % (Auto) Neut # (Auto) Lymph # (Auto) [place] # (Auto) Eos # (Auto) Baso # (Auto) Neutrophils % (Manual) Band Neutrophils % Lymphocytes % (Manual) Monocytes % (Manual) Platelet Estimate Large Platelets Anisocytosis (manual) Puncture Site pCO2 pO2 HCO3 ABG pH ABG Total CO2 ABG O2 Saturation ABG Base Excess ABG Hemoglobin ABG Carboxyhemoglobin POC ABG HHb (Measured) ABG Methemoglobin Vijay Test ABG Potassium A-a O2 Difference Respiratory Index Hgb O2 Saturation Sodium Chloride Glucose Lactate Vent Mode Mechanical Rate FiO2 PEEP Pressure Support CPAP Potassium Carbon Dioxide Anion Gap BUN Creatinine Est GFR ( Amer) Est GFR (Non-Af Amer) POC Glucose (mg/dL) 238 H Random Glucose Calcium Phosphorus Magnesium Total Bilirubin AST ALT Alkaline Phosphatase Total Protein Albumin Globulin Albumin/Globulin Ratio PTH Intact Whole Molec Arterial Blood Potassium Fingerstick Blood Sugar Results: 174 Assessment/Plan (1) Respiratory failure with hypoxia and hypercapnia Current Visit: Yes Status: Acute Priority: High (2) Altered mental status Current Visit: Yes Status: Acute - Assessment and Plan (Free Text) Assessment: Hypercapneic respiratory failure:tolerated CPAP, extubated -AMS: resolved -suspect aspiration : continue zosyn, d/c vanco, no mrsas identified -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
[2017-10-04 12:07] LABS: ABG ALLEN TEST PO; ARTERIAL BLOOD GAS HCO3 23.8 mmol/L (21-28); ARTERIAL BLOOD GAS O2 SAT 98.9 % (95-98); ARTERIAL BLOOD GAS PCO2 29 mm/Hg (35-45); ARTERIAL BLOOD GAS PH 7.47 (7.35-7.45); ARTERIAL BLOOD GAS PO2 107 mm/Hg (80-100)
--- NOTE | 2017-10-04 18:13 | CP.PCM.PN ---
Subjective - Date & Time of Evaluation Date of Evaluation: 10/04/17 Time of Evaluation: 09:20 - Subjective Subjective: clinically same Objective - Vital Signs/Intake and Output Vital Signs (last 24 hours): Temp Pulse Resp BP Pulse Ox 98.6 F 57 L 23 154/58 H 95 10/04/17 12:00 10/04/17 14:14 10/04/17 14:14 10/04/17 14:14 10/04/17 14:14 Intake and Output: 10/04/17 10/04/17 06:59 18:59 Intake Total 856.6 1509.9 Output Total 1000 1300 Balance -143.4 209.9 - Medications Medications: Current Medications Albuterol/Ipratropium (Duoneb 3 Mg/0.5 Mg (3 Ml) Ud) 3 ml INH RQ6 [facility] Last Admin: 10/04/17 13:20 Dose: 3 ml Aspirin (Aspirin Chewable) 81 mg PO DAILY [facility] Last Admin: 10/04/17 09:36 Dose: 81 mg Calcitriol (Rocaltrol) 1 mcg PEG DAILY [facility] Last Admin: 10/04/17 10:43 Dose: Not Given Carvedilol (Coreg) 3.125 mg PO BID [facility] Last Admin: 10/04/17 10:46 Dose: Not Given Dorzolamide HCl (Trusopt) 0 ml OU BID [facility] Last Admin: 10/04/17 09:44 Dose: 1 drop Epoetin Jacob (Procrit) 10,000 unit SC MWF [facility] Last Admin: 10/03/17 10:10 Dose: 10,000 unit Ergocalciferol (Drisdol 50,000 Intl Units Cap) 1 cap PO Q7D [facility] Last Admin: 10/02/17 10:45 Dose: 1 cap Ferrous Gluconate (Fergon) 324 mg PO TID [facility] Last Admin: 10/04/17 14:48 Dose: Not Given Furosemide (Lasix) 40 mg PO DAILY [facility] Last Admin: 10/04/17 09:35 Dose: 40 mg Piperacillin Sod/Tazobactam Sod (Zosyn 2.25 Gm Iv Premix) 2.25 gm in 50 mls @ 100 mls/hr IVPB Q6H [facility] PRN Reason: Protocol Last Admin: 10/04/17 17:46 Dose: 100 mls/hr Doxycycline Hyclate 100 mg/ (Sodium Chloride) 100 mls @ 100 mls/hr IVPB Q12H [facility] PRN Reason: Protocol Last Admin: 10/04/17 09:43 Dose: 100 mls/hr Insulin Aspart (Novolog) 0 unit SC ACHS [facility] PRN Reason: Protocol Last Admin: 10/04/17 17:20 Dose: 8 unit Insulin Glargine (Lantus) 10 unit SC HS [facility] Last Admin: 10/03/17 21:06 Dose: 10 units Latanoprost (Xalatan Opht) 1 ml OS HS [facility] Last Admin: 10/03/17 21:07 Dose: 1 ml Magnesium Oxide (Mag-Ox) 400 mg PO BID [facility] Last Admin: 10/04/17 09:36 Dose: 400 mg Montelukast Sodium (Singulair) 10 mg PO HS [facility] Last Admin: 10/04/17 09:34 Dose: 10 mg Pantoprazole Sodium (Protonix Susp) 40 mg PO DAILY [facility] Last Admin: 10/04/17 10:43 Dose: Not Given Rosuvastatin Calcium (Crestor) 5 mg PO HS [facility] Last Admin: 10/03/17 21:07 Dose: 5 mg Saccharomyces Boulardii (Florastor) 250 mg PO BID [facility] Last Admin: 10/04/17 09:36 Dose: 250 mg Sevelamer Carbonate (Renvela) 0.8 gm GT TIDCC [facility] Last Admin: 10/04/17 17:49 Dose: 0.8 gm Sodium Bicarbonate (Sodium Bicarbonate Tab) 650 mg PO BID [facility] Last Admin: 10/04/17 09:35 Dose: 650 mg Tamsulosin HCl (Flomax) 0.4 mg PO DAILY [facility] Last Admin: 10/04/17 10:46 Dose: Not Given Timolol Maleate (Timoptic 0.25% Ophth Soln) 1 drop OU Q12H [facility] Last Admin: 10/04/17 10:43 Dose: Not Given Vitamin B Complex/Vit C/Folic Acid (Nephro-Fe) 1 tab PO 0800 [facility] Last Admin: 10/04/17 10:45 Dose: Not Given - Labs Labs: 10/04/17 06:21 10/04/17 06:21 PT 15.6 SECONDS (9.7-12.2) H 09/30/17 00:35 INR 1.4 09/30/17 00:35 APTT 30 SECONDS (21-34) 09/30/17 00:35 - Constitutional Appears: Well - Head Exam Head Exam: ATRAUMATIC, NORMAL INSPECTION, NORMOCEPHALIC - Eye Exam Eye Exam: EOMI, Normal appearance, PERRL Pupil Exam: NORMAL ACCOMODATION, PERRL - ENT Exam ENT Exam: Mucous Membranes Moist, Normal Exam - Neck Exam Neck Exam: Full ROM, Normal Inspection. absent: Lymphadenopathy - Respiratory Exam Respiratory Exam: Decreased Breath Sounds - Cardiovascular Exam Cardiovascular Exam: REGULAR RHYTHM, +S1, +S2 - GI/Abdominal Exam GI & Abdominal Exam: Soft, Diminished Bowel Sounds - Rectal Exam Rectal Exam: Deferred
[2017-10-04] MEDS: (Lantus) Insulin Glargine, Recombinant SC SCH (21:39)
[2017-10-04] MEDS: Latanoprost 2.5 ml Opht Soln OS SCH (21:42)
--- NOTE | 2017-10-04 22:40 | CP.PCM.PN ---
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 fluid overload hx of DM, HTN Vit D def and mild hyperphosphatemia Plan No acute need for renal replacement therapy at this time. cr stable non oliguric Maintain hemodynamics stable Monitor Input/Output continue with iron supplements, vitamin d MVI and Flomax Anemia management as per heme/onc. pt started on epogen Physical Examination: General Appearance: comfortable, in no respiratory distress,. mechanically ventilated Vitals reviewed and noted as below Head; Atraumatic, normocephalic EYES: Eye muscles and extraocular movement intact. Sclera is anicteric. Neck; supple no lymphadenopathy, no thyromegaly or bruit Lungs: normal respiratory rate/effort. Breath sounds bilateral clearer today Heart: Normal rate. s1s2 normal. No rub or gallop. Extremities: no edema. No varicose veins Neurological: Patient is awake Skin: Warm and dry. Normal turgor. No rash. Abdomen: Abdomen is soft. Bowel sounds +. There is no abdominal tenderness, no guarding/rigidity no organomegaly Psych: deferred MSK: no joint tenderness or swelling. Digits and nails normal, no deformity : kidney/bladder not palpable has garcia catheter Objective - Vital Signs/Intake and Output Vital Signs (last 24 hours): Temp Pulse Resp BP Pulse Ox 97.4 F L 66 13 130/47 L 98 10/04/17 20:00 10/04/17 22:00 10/04/17 22:00 10/04/17 21:15 10/04/17 22:00 Intake and Output: 10/04/17 10/05/17 18:59 06:59 Intake Total 2439.9 600 Output Total 1800 Balance 639.9 600 - Medications Medications: Current Medications Albuterol/Ipratropium (Duoneb 3 Mg/0.5 Mg (3 Ml) Ud) 3 ml INH RQ6 [facility] Last Admin: 10/04/17 19:53 Dose: 3 ml Aspirin (Aspirin Chewable) 81 mg PO DAILY [facility] Last Admin: 10/04/17 09:36 Dose: 81 mg Calcitriol (Rocaltrol) 1 mcg PEG DAILY [facility] Last Admin: 10/04/17 10:43 Dose: Not Given Carvedilol (Coreg) 3.125 mg PO BID [facility] Last Admin: 10/04/17 18:34 Dose: 3.125 mg Dorzolamide HCl (Trusopt) 0 ml OU BID [facility] Last Admin: 10/04/17 18:41 Dose: 1 drop Epoetin Jacob (Procrit) 10,000 unit SC MWF [facility] Last Admin: 10/03/17 10:10 Dose: 10,000 unit Ergocalciferol (Drisdol 50,000 Intl Units Cap) 1 cap PO Q7D [facility] Last Admin: 10/02/17 10:45 Dose: 1 cap Ferrous Gluconate (Fergon) 324 mg PO TID [facility] Last Admin: 10/04/17 19:17 Dose: 324 mg Furosemide (Lasix) 40 mg PO DAILY [facility] Last Admin: 10/04/17 09:35 Dose: 40 mg Piperacillin Sod/Tazobactam Sod (Zosyn 2.25 Gm Iv Premix) 2.25 gm in 50 mls @ 100 mls/hr IVPB Q6H [facility] PRN Reason: Protocol Last Admin: 10/04/17 21:41 Dose: 100 mls/hr Doxycycline Hyclate 100 mg/ (Sodium Chloride) 100 mls @ 100 mls/hr IVPB Q12H [facility] PRN Reason: Protocol Last Admin: 10/04/17 21:40 Dose: 100 mls/hr Insulin Aspart (Novolog) 0 unit SC ACHS [facility] PRN Reason: Protocol Last Admin: 10/04/17 21:39 Dose: 3 unit Insulin Glargine (Lantus) 10 unit SC HS [facility] Last Admin: 10/04/17 21:39 Dose: 10 units Latanoprost (Xalatan Opht) 1 ml OS HS [facility] Last Admin: 10/04/17 21:42 Dose: 1 ml Magnesium Oxide (Mag-Ox) 400 mg PO BID [facility] Last Admin: 10/04/17 18:37 Dose: 400 mg Montelukast Sodium (Singulair) 10 mg PO HS [facility] Last Admin: 10/04/17 21:42 Dose: 10 mg Pantoprazole Sodium (Protonix Susp) 40 mg PO DAILY [facility] Last Admin: 10/04/17 10:43 Dose: Not Given Rosuvastatin Calcium (Crestor) 5 mg PO HS [facility] Last Admin: 10/04/17 21:42 Dose: 5 mg Saccharomyces Boulardii (Florastor) 250 mg PO BID [facility] Last Admin: 10/04/17 18:44 Dose: 250 mg Sevelamer Carbonate (Renvela) 0.8 gm GT TIDCC [facility] Last Admin: 10/04/17 17:49 Dose: 0.8 gm Sodium Bicarbonate (Sodium Bicarbonate Tab) 650 mg PO BID [facility] Last Admin: 10/04/17 18:37 Dose: 650 mg Tamsulosin HCl (Flomax) 0.4 mg PO DAILY [facility] Last Admin: 10/04/17 10:46 Dose: Not Given Timolol Maleate (Timoptic 0.25% [facility]) 1 drop OU Q12H [facility] Last Admin: 10/04/17 21:42 Dose: 1 drop Vitamin B Complex/Vit C/Folic Acid (Nephro-Fe) 1 tab PO 0800 [facility] Last Admin: 10/04/17 10:45 Dose: Not Given - Labs Labs: 10/04/17 06:21 10/04/17 06:21 PT 15.6 SECONDS (9.7-12.2) H 09/30/17 00:35 INR 1.4 09/30/17 00:35 APTT 30 SECONDS (21-34) 09/30/17 00:35
[2017-10-05] MEDS: Albuterol-Ipratrop 3 mg / 0.5 (3 ml) UD INH SCH ×4 (01:37→19:57)
[2017-10-05] MEDS: Piperacill/Tazo 2.25gm in Dex 2.25 GM/50 ML BAG IVPB SCH ×4 (04:23→21:46)
[2017-10-05 06:46] LABS: BASO % 0.1 % (0.0-2.0); EOS % 0.1 % (0.0-4.0); HEMOGLOBIN 9.8 g/dL (12.0-18.0); LYMPH # 1.6 K/uL (1.0-4.3); LYMPH % 13.5 % (20.0-40.0); MEAN CELL VOLUME 87.3 fL (80.0-94.0); MEAN CORPUSCULAR HEMOGLOBIN 29.6 pg (27.0-31.0); MEAN CORPUSCULAR HGB CONC 33.9 g/dL (33.0-37.0); MEAN PLATELET VOLUME 7.8 fL (7.2-11.7); MONO # 1.4 K/uL (0.0-0.8); MONO % 11.5 % (0.0-10.0); NEUT # 9.1 K/uL (1.8-7.0); NEUT % 74.8 % (50.0-75.0); NRBC % 0.1 % (0.0-2.0); RBC 3.31 Mil/uL (4.40-5.90); WHITE BLOOD COUNT 12.1 K/uL (4.8-10.8)
[2017-10-05 06:52] LABS: ALB/GLOB RATIO 0.7 (1.0-2.1)
[2017-10-05] MEDS: Multivitamin Vitamin B Complex (Nephro-Vite) Tab PO SCH (07:38)
[2017-10-05] MEDS: (Novolog) Insulin Aspart, Recombinant 100 u/ml 10 ml vial SC SCH ×4 (07:38→21:30)
[2017-10-05] MEDS: Sevelamer Carb 0.8 gm/Packet GT SCH ×3 (07:38→16:11)
[2017-10-05] MEDS: Magnesium Oxide 400 mg Tab UD PO SCH ×2 (09:19→17:05)
[2017-10-05] MEDS: Saccharomyces Boulardi 250 mg Cap PO SCH ×2 (09:19→17:05)
[2017-10-05] MEDS: Pantoprazole 40 mg Susp UD PO SCH (09:19)
[2017-10-05] MEDS: Timolol 0.25% Ophth SOLN OU SCH ×2 (09:20→21:47)
[2017-10-05] MEDS: Dorzolamide 2% Opht Sol 10ml OU SCH ×2 (09:20→17:05)
--- NOTE | 2017-10-05 09:27 | CP.PCM.PN ---
Subjective - Date & Time of Evaluation Date of Evaluation: 10/05/17 Time of Evaluation: 09:22 - Subjective Subjective: No events, patient is awake, communicating well, except hard of hearing. Objective - Vital Signs/Intake and Output Vital Signs (last 24 hours): Temp Pulse Resp BP Pulse Ox 97.4 F L 57 L 20 122/62 98 10/05/17 08:00 10/05/17 08:00 10/05/17 08:00 10/05/17 09:19 10/05/17 08:00 Intake and Output: 10/05/17 10/05/17 06:59 18:59 Intake Total 950 100 Output Total 1000 220 Balance -50 -120 - Medications Medications: Current Medications Albuterol/Ipratropium (Duoneb 3 Mg/0.5 Mg (3 Ml) Ud) 3 ml INH RQ6 [facility] Last Admin: 10/05/17 07:50 Dose: 3 ml Aspirin (Aspirin Chewable) 81 mg PO DAILY [facility] Last Admin: 10/05/17 09:19 Dose: 81 mg Calcitriol (Rocaltrol) 1 mcg PEG DAILY [facility] Last Admin: 10/04/17 10:43 Dose: Not Given Carvedilol (Coreg) 3.125 mg PO BID [facility] Last Admin: 10/05/17 09:19 Dose: 3.125 mg Dorzolamide HCl (Trusopt) 0 ml OU BID [facility] Last Admin: 10/05/17 09:20 Dose: 1 drop Epoetin Jacob (Procrit) 10,000 unit SC MWF [facility] Last Admin: 10/03/17 10:10 Dose: 10,000 unit Ergocalciferol (Drisdol 50,000 Intl Units Cap) 1 cap PO Q7D [facility] Last Admin: 10/02/17 10:45 Dose: 1 cap Ferrous Gluconate (Fergon) 324 mg PO TID [facility] Last Admin: 10/05/17 09:19 Dose: 324 mg Furosemide (Lasix) 40 mg PO DAILY [facility] Last Admin: 10/05/17 09:19 Dose: 40 mg Piperacillin Sod/Tazobactam Sod (Zosyn 2.25 Gm Iv Premix) 2.25 gm in 50 mls @ 100 mls/hr IVPB Q6H [facility] PRN Reason: Protocol Last Admin: 10/05/17 04:23 Dose: 100 mls/hr Doxycycline Hyclate 100 mg/ (Sodium Chloride) 100 mls @ 100 mls/hr IVPB Q12H [facility] PRN Reason: Protocol Last Admin: 10/04/17 21:40 Dose: 100 mls/hr Insulin Aspart (Novolog) 0 unit SC ACHS [facility] PRN Reason: Protocol Last Admin: 10/05/17 07:38 Dose: 6 unit Insulin Glargine (Lantus) 10 unit SC HS [facility] Last Admin: 10/04/17 21:39 Dose: 10 units Latanoprost (Xalatan Opht) 1 ml OS HS [facility] Last Admin: 10/04/17 21:42 Dose: 1 ml Magnesium Oxide (Mag-Ox) 400 mg PO BID [facility] Last Admin: 10/05/17 09:19 Dose: 400 mg Montelukast Sodium (Singulair) 10 mg PO HS [facility] Last Admin: 10/04/17 21:42 Dose: 10 mg Pantoprazole Sodium (Protonix Susp) 40 mg PO DAILY [facility] Last Admin: 10/05/17 09:19 Dose: 40 mg Rosuvastatin Calcium (Crestor) 5 mg PO HS [facility] Last Admin: 10/04/17 21:42 Dose: 5 mg Saccharomyces Boulardii (Florastor) 250 mg PO BID [facility] Last Admin: 10/05/17 09:19 Dose: 250 mg Sevelamer Carbonate (Renvela) 0.8 gm GT TIDCC [facility] Last Admin: 10/05/17 07:38 Dose: 0.8 gm Sodium Bicarbonate (Sodium Bicarbonate Tab) 650 mg PO BID [facility] Last Admin: 10/05/17 09:19 Dose: 650 mg Tamsulosin HCl (Flomax) 0.4 mg PO DAILY [facility] Last Admin: 10/05/17 09:19 Dose: 0.4 mg Timolol Maleate (Timoptic 0.25% [facility]) 1 drop OU Q12H [facility] Last Admin: 10/05/17 09:20 Dose: 1 drop Vitamin B Complex/Vit C/Folic Acid (Nephro-Fe) 1 tab PO 0800 [facility] Last Admin: 10/05/17 07:38 Dose: 1 tab - Labs Labs: 10/05/17 06:20 10/05/17 06:20 PT 15.6 SECONDS (9.7-12.2) H 09/30/17 00:35 INR 1.4 04/24/18 00:35 APTT 30 SECONDS (21-34) 09/30/17 00:35 - Additional Findings Additional findings: * HEENT KALEB * Neck Supple * Chest scattered rattling noise * CVS regular, sinus * PA soft, nt bs present * Ext no edema * Skin normal turgor * [employer] awake, communicating well, had diet. 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 Plan: See above
[2017-10-05] MEDS: Calcitriol 1 mcg/ml Oral Soln (15 ml) PEG SCH (09:45)
--- NOTE | 2017-10-05 15:22 | CP.PCM.PN ---
Subjective - Date & Time of Evaluation Date of Evaluation: 10/05/17 Time of Evaluation: 10:20 - Subjective Subjective: clinically same Objective - Vital Signs/Intake and Output Vital Signs (last 24 hours): Temp Pulse Resp BP Pulse Ox 98.2 F 61 20 112/82 96 10/05/17 12:00 10/05/17 13:31 10/05/17 13:31 10/05/17 13:31 10/05/17 13:31 Intake and Output: 10/05/17 10/05/17 06:59 18:59 Intake Total 950 850 Output Total 1000 420 Balance -50 430 - Medications Medications: Current Medications Albuterol/Ipratropium (Duoneb 3 Mg/0.5 Mg (3 Ml) Ud) 3 ml INH RQ6 [facility] Aspirin (Aspirin Chewable) 81 mg PO DAILY [facility] Last Admin: 10/05/17 09:19 Dose: 81 mg Calcitriol (Rocaltrol) 1 mcg PO DAILY [facility] Carvedilol (Coreg) 3.125 mg PO BID [facility] Last Admin: 10/05/17 09:19 Dose: 3.125 mg Dorzolamide HCl (Trusopt) 0 ml OU BID [facility] Last Admin: 10/05/17 09:20 Dose: 1 drop Epoetin Jacob (Procrit) 10,000 unit SC MWF [facility] Last Admin: 10/03/17 10:10 Dose: 10,000 unit Ergocalciferol (Drisdol 50,000 Intl Units Cap) 1 cap PO Q7D [facility] Last Admin: 10/02/17 10:45 Dose: 1 cap Ferrous Gluconate (Fergon) 324 mg PO TID [facility] Last Admin: 10/05/17 13:43 Dose: 324 mg Furosemide (Lasix) 40 mg PO DAILY [facility] Last Admin: 10/05/17 09:19 Dose: 40 mg Piperacillin Sod/Tazobactam Sod (Zosyn 2.25 Gm Iv Premix) 2.25 gm in 50 mls @ 100 mls/hr IVPB Q6H [facility] PRN Reason: Protocol Last Admin: 10/05/17 09:30 Dose: 100 mls/hr Doxycycline Hyclate 100 mg/ (Sodium Chloride) 100 mls @ 100 mls/hr IVPB Q12H [facility] PRN Reason: Protocol Last Admin: 10/05/17 09:31 Dose: 100 mls/hr Insulin Aspart (Novolog) 0 unit SC [facility] PRN Reason: Protocol Last Admin: 10/05/17 12:17 Dose: 6 unit Insulin Glargine (Lantus) 10 unit SC [facility] Last Admin: 10/04/17 21:39 Dose: 10 units Latanoprost (Xalatan Opht) 1 ml OS HS [facility] Last Admin: 10/04/17 21:42 Dose: 1 ml Magnesium Oxide (Mag-Ox) 400 mg PO BID [facility] Last Admin: 10/05/17 09:19 Dose: 400 mg Montelukast Sodium (Singulair) 10 mg PO HS [facility] Last Admin: 10/04/17 21:42 Dose: 10 mg Pantoprazole Sodium (Protonix Ec Tab) 40 mg PO DAILY [facility] Rosuvastatin Calcium (Crestor) 5 mg PO HS [facility] Last Admin: 10/04/17 21:42 Dose: 5 mg Saccharomyces Boulardii (Florastor) 250 mg PO BID [facility] Last Admin: 10/05/17 09:19 Dose: 250 mg Sevelamer Carbonate (Renvela) 0.8 gm GT TIDCC [facility] Last Admin: 10/05/17 12:17 Dose: 0.8 gm Sodium Bicarbonate (Sodium Bicarbonate Tab) 650 mg PO BID [facility] Last Admin: 10/05/17 09:19 Dose: 650 mg Tamsulosin HCl (Flomax) 0.4 mg PO DAILY [facility] Last Admin: 10/05/17 09:19 Dose: 0.4 mg Timolol Maleate (Timoptic 0.25% [facility]) 1 drop OU Q12H [facility] Last Admin: 10/05/17 09:20 Dose: 1 drop Vitamin B Complex/Vit C/Folic Acid (Nephro-Fe) 1 tab PO 0800 [facility] Last Admin: 10/05/17 07:38 Dose: 1 tab - Labs Labs: 10/05/17 06:20 10/05/17 06:20 PT 15.6 SECONDS (9.7-12.2) H 09/30/17 00:35 INR 1.4 09/30/17 00:35 APTT 30 SECONDS (21-34) 09/30/17 00:35 - Constitutional Appears: Well - Head Exam Head Exam: ATRAUMATIC, NORMAL INSPECTION, NORMOCEPHALIC - Eye Exam Eye Exam: EOMI, Normal appearance, PERRL Pupil Exam: NORMAL ACCOMODATION, PERRL - ENT Exam ENT Exam: Mucous Membranes Moist, Normal Exam - Neck Exam Neck Exam: Full ROM, Normal Inspection. absent: Lymphadenopathy - Respiratory Exam Respiratory Exam: Decreased Breath Sounds - Cardiovascular Exam Cardiovascular Exam: REGULAR RHYTHM, +S1, +S2 - GI/Abdominal Exam GI & Abdominal Exam: Soft, Diminished Bowel Sounds - Rectal Exam Rectal Exam: Deferred
[2017-10-05] MEDS: Latanoprost 2.5 ml Opht Soln OS SCH (21:47)
[2017-10-05] MEDS: (Lantus) Insulin Glargine, Recombinant SC SCH (21:48)
--- NOTE | 2017-10-05 21:56 | CP.PCM.PN ---
Subjective - Date & Time of Evaluation Date of Evaluation: 10/05/17 Time of Evaluation: 20:45 - Subjective Subjective: Appears comfortable Objective - Vital Signs/Intake and Output Vital Signs (last 24 hours): Temp Pulse Resp BP Pulse Ox 97.4 F L 64 19 163/67 H 100 10/05/17 20:00 10/05/17 20:00 10/05/17 20:00 10/05/17 19:34 10/05/17 20:00 Intake and Output: 10/05/17 10/06/17 18:59 06:59 Intake Total 1100 100 Output Total 620 300 Balance 480 -200 - Medications Medications: Current Medications Albuterol/Ipratropium (Duoneb 3 Mg/0.5 Mg (3 Ml) Ud) 3 ml INH RQ6 [facility] Last Admin: 10/05/17 19:57 Dose: 3 ml Aspirin (Aspirin Chewable) 81 mg PO DAILY [facility] Last Admin: 10/05/17 09:19 Dose: 81 mg Calcitriol (Rocaltrol) 1 mcg PO DAILY [facility] Carvedilol (Coreg) 3.125 mg PO BID [facility] Last Admin: 10/05/17 17:05 Dose: 3.125 mg Dorzolamide HCl (Trusopt) 0 ml OU BID [facility] Last Admin: 10/05/17 17:05 Dose: 1 drop Epoetin Jacob (Procrit) 10,000 unit SC MWF [facility] Last Admin: 10/03/17 10:10 Dose: 10,000 unit Ergocalciferol (Drisdol 50,000 Intl Units Cap) 1 cap PO Q7D [facility] Last Admin: 10/02/17 10:45 Dose: 1 cap Ferrous Gluconate (Fergon) 324 mg PO TID [facility] Last Admin: 10/05/17 17:05 Dose: 324 mg Furosemide (Lasix) 40 mg PO DAILY [facility] Last Admin: 10/05/17 09:19 Dose: 40 mg Piperacillin Sod/Tazobactam Sod (Zosyn 2.25 Gm Iv Premix) 2.25 gm in 50 mls @ 100 mls/hr IVPB Q6H [facility] PRN Reason: Protocol Last Admin: 10/05/17 21:46 Dose: 100 mls/hr Doxycycline Hyclate 100 mg/ (Sodium Chloride) 100 mls @ 100 mls/hr IVPB Q12H [facility] PRN Reason: Protocol Last Admin: 10/05/17 21:46 Dose: 100 mls/hr Insulin Aspart (Novolog) 0 unit SC ACHS [facility] PRN Reason: Protocol Last Admin: 10/05/17 21:30 Dose: Not Given Insulin Glargine (Lantus) 10 unit SC HS [facility] Last Admin: 10/05/17 21:48 Dose: 10 units Latanoprost (Xalatan Opht) 1 ml OS HS [facility] Last Admin: 10/05/17 21:47 Dose: 1 ml Magnesium Oxide (Mag-Ox) 400 mg PO BID [facility] Last Admin: 10/05/17 17:05 Dose: 400 mg Montelukast Sodium (Singulair) 10 mg PO HS [facility] Last Admin: 10/05/17 21:47 Dose: 10 mg Pantoprazole Sodium (Protonix Ec Tab) 40 mg PO DAILY [facility] Rosuvastatin Calcium (Crestor) 5 mg PO HS [facility] Last Admin: 10/05/17 21:47 Dose: 5 mg Saccharomyces Boulardii (Florastor) 250 mg PO BID [facility] Last Admin: 10/05/17 17:05 Dose: 250 mg Sevelamer Carbonate (Renvela) 0.8 gm GT TIDCC [facility] Last Admin: 10/05/17 16:11 Dose: 0.8 gm Sodium Bicarbonate (Sodium Bicarbonate Tab) 650 mg PO BID [facility] Last Admin: 10/05/17 17:05 Dose: 650 mg Tamsulosin HCl (Flomax) 0.4 mg PO DAILY [facility] Last Admin: 10/05/17 09:19 Dose: 0.4 mg Timolol Maleate (Timoptic 0.25% [facility]) 1 drop OU Q12H [facility] Last Admin: 10/05/17 21:47 Dose: 1 drop Vitamin B Complex/Vit C/Folic Acid (Nephro-Fe) 1 tab PO 0800 [facility] Last Admin: 10/05/17 07:38 Dose: 1 tab - Labs Labs: 10/05/17 06:20 10/05/17 06:20 PT 15.6 SECONDS (9.7-12.2) H 09/30/17 00:35 INR 1.4 09/30/17 00:35 APTT 30 SECONDS (21-34) 09/30/17 00:35 - Head Exam Head Exam: ATRAUMATIC - Eye Exam Eye Exam: Normal appearance - ENT Exam ENT Exam: Mucous Membranes Dry - Respiratory Exam Respiratory Exam: NORMAL BREATHING PATTERN - Cardiovascular Exam Cardiovascular Exam: +S1, +S2 - GI/Abdominal Exam GI & Abdominal Exam: Normal Bowel Sounds Assessment and Plan (1) Anemia Assessment & Plan: anemia of CKD and chronic disease; okay to use Procrit despite likely prostate cancer imaging suggestive on bone metastasis; likely contributing to anemia transfusion support PRN f/u FOBT Status: Acute (2) Elevated PSA Assessment & Plan: 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
[2017-10-06] MEDS: Albuterol-Ipratrop 3 mg / 0.5 (3 ml) UD INH SCH ×4 (01:33→19:45)
[2017-10-06] MEDS: Piperacill/Tazo 2.25gm in Dex 2.25 GM/50 ML BAG IVPB SCH ×4 (04:11→21:16)
[2017-10-06] MEDS: (Novolog) Insulin Aspart, Recombinant 100 u/ml 10 ml vial SC SCH ×4 (07:55→21:35)
[2017-10-06] MEDS: Multivitamin Vitamin B Complex (Nephro-Vite) Tab PO SCH (07:55)
[2017-10-06] MEDS: Sevelamer Carb 0.8 gm/Packet GT SCH ×3 (07:55→16:25)
[2017-10-06] MEDS: Saccharomyces Boulardi 250 mg Cap PO SCH ×2 (09:02→17:04)
[2017-10-06] MEDS: Magnesium Oxide 400 mg Tab UD PO SCH ×2 (09:02→17:03)
[2017-10-06] MEDS: Epoetin Alfa 10,000 unit/ml Dialysis SC SCH (09:02)
[2017-10-06] MEDS: Dorzolamide 2% Opht Sol 10ml OU SCH ×2 (09:04→17:03)
[2017-10-06] MEDS: Timolol 0.25% Ophth SOLN OU SCH ×2 (09:04→21:16)
[2017-10-06] MEDS: Pantoprazole 40 mg EC Tab PO SCH (09:07)
[2017-10-06 12:38] LABS: BASO % 0.2 % (0.0-2.0); EOS # 0.1 K/uL (0.0-0.7); EOS % 0.9 % (0.0-4.0); HEMOGLOBIN 10.1 g/dL (12.0-18.0); LYMPH # 1.7 K/uL (1.0-4.3); LYMPH % 10.9 % (20.0-40.0); MEAN CELL VOLUME 87.5 fL (80.0-94.0); MEAN CORPUSCULAR HEMOGLOBIN 29.5 pg (27.0-31.0); MEAN CORPUSCULAR HGB CONC 33.8 g/dL (33.0-37.0); MEAN PLATELET VOLUME 7.4 fL (7.2-11.7); MONO # 1.3 K/uL (0.0-0.8); MONO % 8.4 % (0.0-10.0); NEUT # 12.2 K/uL (1.8-7.0); NEUT % 79.6 % (50.0-75.0); RBC 3.42 Mil/uL (4.40-5.90); RED CELL DISTRIBUTION WIDTH 14.5 % (11.5-14.5); WHITE BLOOD COUNT 15.4 K/uL (4.8-10.8)
[2017-10-06 12:55] LABS: CALCIUM 8.4 mg/dl (8.6-10.4)
--- NOTE | 2017-10-06 14:49 | CP.PCM.PN ---
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 fluid overload hx of DM, HTN Vit D def and mild hyperphosphatemia Plan No acute need for renal replacement therapy at this time. Maintain hemodynamics stable, avoid hypotension, Patient not on ACEI/ARB due to SHANNAN Monitor Input/Output, daily weights and renal function with basic metabolic panel continue with iron supplements, MVI and Flomax 0.4 mg once a day supplement with weekly vit D. PTH level 163 in target range hence d/c calcitriol appreciate Heme evaluation Anemia management as per heme/onc. pt started on epogen Bladder scan done 10/06/17>>600 mL, pt with obstructive uropathy, need indwelling garcia until definite treatment by hence d/w RN to re-insert garcia catheter. Dose meds/antibiotics for reduced GFR. Avoid fleets enema/magnesium based laxatives. Avoid nephrotoxins/NSAIDs/ iodinated contrast (unless needed emergently) Glycemic control Further work up/management as per primary team Thanks for allowing me to participate in care of your patient. Will follow patient with you. Please call if any Qs. 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 pt seen by heme/onc. Denies OTC/herbal meds or NSAIDs No recent iodinated contrast exposure. No obvious episodes of low BP pt was seen in office recently ~ 2 weeks ago when his serum cr 2.3 and started on epogen for anemia and lasix for edema. pt intubated 10/02/17 evening for respi failure and transferred to MICU ROS: pt feels better. denies CP/SOB. c/o cough Physical Examination: General Appearance: comfortable, in no respiratory distress,. coperative Vitals reviewed and noted as below Head; Atraumatic, normocephalic ENT: normal oral mucosa no thrush/rash or ulcer. EYES: Pupils are equal, round and reactive to light accommodation. Eye muscles and extraocular movement intact. Sclera is anicteric. Neck; supple no lymphadenopathy, no thyromegaly or bruit Lungs: normal respiratory rate/effort. Breath sounds bilateral with basal rales Heart: Normal rate. s1s2 normal. No rub or gallop. Extremities: no edema. No varicose veins Neurological: Patient is awake alert follow commands, no focal deficit. Skin: Warm and dry. Normal turgor. No rash. Palpitation: Normal elasticity for age Abdomen: Abdomen is soft. Bowel sounds +. There is no abdominal tenderness, no guarding/rigidity no organomegaly Psych: limited insight. normal affect MSK: no joint tenderness or swelling. Digits and nails normal, no deformity : kidney not palpable bladder distended Labs/imaging reviewed. Past medical history, past surgical history, family history, social history, allergy reviewed and noted as below Family hx: no hx of CKD. Rest non-contributory Renal sonogram severe bilateral hydronephrosis Urine protein creatinine ratio 2 gram Iron saturation 7% ferritin 198 Objective - Vital Signs/Intake and Output Vital Signs (last 24 hours): Temp Pulse Resp BP Pulse Ox 97.5 F L 69 23 120/63 100 10/06/17 12:00 10/06/17 13:33 10/06/17 13:33 10/06/17 13:33 10/06/17 12:34 Intake and Output: 10/06/17 10/06/17 06:59 18:59 Intake Total 550 840 Output Total 1100 1 Balance -550 839 - Medications Medications: Current Medications Albuterol/Ipratropium (Duoneb 3 Mg/0.5 Mg (3 Ml) Ud) 3 ml INH RQ6 [facility] Last Admin: 10/06/17 13:43 Dose: 3 ml Aspirin (Aspirin Chewable) 81 mg PO DAILY [facility] Last Admin: 10/06/17 09:01 Dose: 81 mg Carvedilol (Coreg) 3.125 mg PO BID [facility] Last Admin: 10/06/17 09:01 Dose: 3.125 mg Dorzolamide HCl (Trusopt) 0 ml OU BID [facility] Last Admin: 10/06/17 09:04 Dose: 1 drop Epoetin Jacob (Procrit) 10,000 unit SC MWF [facility] Last Admin: 10/06/17 09:02 Dose: 10,000 unit Ergocalciferol (Drisdol 50,000 Intl Units Cap) 1 cap PO Q7D [facility] Last Admin: 10/02/17 10:45 Dose: 1 cap Ferrous Gluconate (Fergon) 324 mg PO TID [facility] Last Admin: 10/06/17 13:17 Dose: 324 mg Furosemide (Lasix) 40 mg PO DAILY [facility] Last Admin: 10/06/17 09:02 Dose: 40 mg Piperacillin Sod/Tazobactam Sod (Zosyn 2.25 Gm Iv Premix) 2.25 gm in 50 mls @ 100 mls/hr IVPB Q6H [facility] PRN Reason: Protocol Last Admin: 10/06/17 09:14 Dose: 100 mls/hr Insulin Aspart (Novolog) 0 unit SC ACHS [facility] PRN Reason: Protocol Last Admin: 10/06/17 12:02 Dose: 6 unit Insulin Glargine (Lantus) 10 unit SC HS [facility] Last Admin: 10/05/17 21:48 Dose: 10 units Latanoprost (Xalatan Opht) 1 ml OS HS [facility] Last Admin: 10/05/17 21:47 Dose: 1 ml Magnesium Oxide (Mag-Ox) 400 mg PO BID [facility] Last Admin: 10/06/17 09:02 Dose: 400 mg Montelukast Sodium (Singulair) 10 mg PO HS [facility] Last Admin: 10/05/17 21:47 Dose: 10 mg Pantoprazole Sodium (Protonix Ec Tab) 40 mg PO DAILY [facility] Last Admin: 10/06/17 09:07 Dose: 40 mg Rosuvastatin Calcium (Crestor) 5 mg PO HS [facility] Last Admin: 10/05/17 21:47 Dose: 5 mg Saccharomyces Boulardii (Florastor) 250 mg PO BID [facility] Last Admin: 10/06/17 09:02 Dose: 250 mg Sevelamer Carbonate (Renvela) 0.8 gm GT TIDCC [facility] Last Admin: 10/06/17 12:02 Dose: 0.8 gm Sodium Bicarbonate (Sodium Bicarbonate Tab) 650 mg PO BID [facility] Last Admin: 10/06/17 09:03 Dose: 650 mg Tamsulosin HCl (Flomax) 0.4 mg PO DAILY [facility] Last Admin: 04/30/18 09:02 Dose: 0.4 mg Timolol Maleate (Timoptic 0.25% Oph Soln) 1 drop OU Q12H [facility] Last Admin: 10/06/17 09:04 Dose: 1 drop Vitamin B Complex/Vit C/Folic Acid (Nephro-Fe) 1 tab PO 0800 [facility] Last Admin: 10/06/17 07:55 Dose: 1 tab - Labs Labs: 10/06/17 12:18 10/06/17 12:18 PT 15.6 SECONDS (9.7-12.2) H 09/30/17 00:35 INR 1.4 09/30/17 00:35 APTT 30 SECONDS (21-34) 09/30/17 00:35
--- NOTE | 2017-10-06 17:20 | CP.PCM.PN ---
<[email or web address] - Last Filed: 10/06/17 17:15> Subjective - Date & Time of Evaluation Date of Evaluation: 10/06/17 Time of Evaluation: 17:15 - Subjective Subjective: PGY2 progress note for Dr. Alcala Pt seen and examined at bedside. No acute events overnight. Pt is still complaining of productive cough and shortness of breath. Patient denie shaving any CP, abd pain, N/V/D/c, F/C. Objective - Vital Signs/Intake and Output Vital Signs (last 24 hours): Temp Pulse Resp BP Pulse Ox 97.5 F L 80 24 138/69 100 10/06/17 16:00 10/06/17 17:00 10/06/17 17:00 10/06/17 16:34 10/06/17 12:34 Intake and Output: 10/06/17 10/06/17 06:59 18:59 Intake Total 550 1370 Output Total 1100 1 Balance -550 1369 - Medications Medications: Current Medications Albuterol/Ipratropium (Duoneb 3 Mg/0.5 Mg (3 Ml) Ud) 3 ml INH RQ6 [facility] Last Admin: 10/06/17 13:43 Dose: 3 ml Aspirin (Aspirin Chewable) 81 mg PO DAILY [facility] Last Admin: 10/06/17 09:01 Dose: 81 mg Carvedilol (Coreg) 3.125 mg PO BID [facility] Last Admin: 10/06/17 17:02 Dose: 3.125 mg Dorzolamide HCl (Trusopt) 0 ml OU BID [facility] Last Admin: 10/06/17 17:03 Dose: 1 drop Epoetin Jacob (Procrit) 10,000 unit SC MWF [facility] Last Admin: 10/06/17 09:02 Dose: 10,000 unit Ergocalciferol (Drisdol 50,000 Intl Units Cap) 1 cap PO Q7D [facility] Last Admin: 10/02/17 10:45 Dose: 1 cap Ferrous Gluconate (Fergon) 324 mg PO TID [facility] Last Admin: 10/06/17 17:03 Dose: 324 mg Furosemide (Lasix) 40 mg PO DAILY [facility] Last Admin: 10/06/17 09:02 Dose: 40 mg Piperacillin Sod/Tazobactam Sod (Zosyn 2.25 Gm Iv Premix) 2.25 gm in 50 mls @ 100 mls/hr IVPB Q6H [facility] PRN Reason: Protocol Last Admin: 10/06/17 16:25 Dose: 100 mls/hr Insulin Aspart (Novolog) 0 unit SC ACHS [facility] PRN Reason: Protocol Last Admin: 10/06/17 16:24 Dose: 4 unit Insulin Glargine (Lantus) 10 unit SC HS [facility] Last Admin: 10/05/17 21:48 Dose: 10 units Latanoprost (Xalatan Opht) 1 ml OS HS [facility] Last Admin: 10/05/17 21:47 Dose: 1 ml Magnesium Oxide (Mag-Ox) 400 mg PO BID [facility] Last Admin: 10/06/17 17:03 Dose: 400 mg Montelukast Sodium (Singulair) 10 mg PO HS [facility] Last Admin: 10/05/17 21:47 Dose: 10 mg Pantoprazole Sodium (Protonix Ec Tab) 40 mg PO DAILY [facility] Last Admin: 10/06/17 09:07 Dose: 40 mg Rosuvastatin Calcium (Crestor) 5 mg PO HS [facility] Last Admin: 10/05/17 21:47 Dose: 5 mg Saccharomyces Boulardii (Florastor) 250 mg PO BID [facility] Last Admin: 10/06/17 17:04 Dose: 250 mg Sevelamer Carbonate (Renvela) 0.8 gm GT TIDCC [facility] Last Admin: 10/06/17 16:25 Dose: 0.8 gm Sodium Bicarbonate (Sodium Bicarbonate Tab) 650 mg PO BID [facility] Last Admin: 10/06/17 17:03 Dose: 650 mg Tamsulosin HCl (Flomax) 0.4 mg PO DAILY [facility] Last Admin: 10/06/17 09:02 Dose: 0.4 mg Timolol Maleate (Timoptic 0.25% Ophth Soln) 1 drop OU Q12H [facility] Last Admin: 10/06/17 09:04 Dose: 1 drop Vitamin B Complex/Vit C/Folic Acid (Nephro-Fe) 1 tab PO 0800 [facility] Last Admin: 10/06/17 07:55 Dose: 1 tab - Labs Labs: 10/06/17 12:18 10/06/17 12:18 PT 15.6 SECONDS (9.7-12.2) H 09/30/17 00:35 INR 1.4 09/30/17 00:35 APTT 30 SECONDS (21-34) 09/30/17 00:35 - Constitutional Appears: Non-toxic, No Acute Distress - Head Exam Head Exam: ATRAUMATIC, NORMOCEPHALIC - ENT Exam ENT Exam: Mucous Membranes Moist - Respiratory Exam Respiratory Exam: Rales, Rhonchi. absent: Accessory Muscle Use, Wheezes, Respiratory Distress - Cardiovascular Exam Cardiovascular Exam: REGULAR RHYTHM, +S1, +S2 - GI/Abdominal Exam GI & Abdominal Exam: Soft, Normal Bowel Sounds. 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 On admission, Hgb was 7.3. Acute anemia - S/p 2 units of blood transfusion - Currently Hgb is stable - will continue to monitor - Heme/onc consulted - Continue procrit and ferrous gluconate Acute respiratory distress - Pt had DETECTIVE on 10/02/17 for acute hypercapnic respiratory failure. patient was then transferred to ICU after being intubated. Patient was then extubated on - Currently stable respiratory status - Duonebs q6 [facility] Questionable aspiration PNA - CT scan of chest after DETECTIVE showed trace B/L pleural effusion, faint multifocal alevolar infiltrate - Continue zosyn and florastor CKD stage III - Nephrology consulted -Continue MV and flomax 0.4 mg qd - ergocalciferol, Renvela, nephrovite Prostate ca with mets - garcia in place HTN - Continue lasixs, coreg DM - ISS - lantus 10 units sc hs - Accuchecks ACHS - Aspirin HLD - Crestor Prophylaxis - Lovenox - Protonix <Chelle Alcala S - Last Filed: 10/10/17 11:24> Objective - Vital Signs/Intake and Output Vital Signs (last 24 hours): Temp Pulse Resp BP Pulse Ox 98.2 F 74 20 142/70 96 10/10/17 07:05 10/10/17 07:05 10/10/17 07:05 10/10/17 09:27 10/10/17 07:05 Intake and Output: 10/10/17 10/10/17 06:59 18:59 Intake Total 650 Output Total 1100 Balance -450 - Medications Medications: Current Medications Albuterol/Ipratropium (Duoneb 3 Mg/0.5 Mg (3 Ml) Ud) 3 ml INH RQ6 [facility] Last Admin: 10/10/17 07:12 Dose: 3 ml Aspirin (Aspirin Chewable) 81 mg PO DAILY [facility] Last Admin: 10/07/17 09:37 Dose: 81 mg Carvedilol (Coreg) 3.125 mg PO BID [facility] Last Admin: 10/10/17 09:26 Dose: 3.125 mg Dorzolamide HCl (Trusopt) 0 ml OU BID [facility] Last Admin: 10/10/17 09:26 Dose: 1 drop Epoetin Jacob (Procrit) 10,000 unit SC MWF [facility] Last Admin: 10/10/17 09:26 Dose: 10,000 unit Ergocalciferol (Drisdol 50,000 Intl Units Cap) 1 cap PO Q7D [facility] Last Admin: 10/09/17 09:47 Dose: 1 cap Ferrous Gluconate (Fergon) 324 mg PO TID [facility] Last Admin: 10/10/17 09:26 Dose: 324 mg Furosemide (Lasix) 40 mg PO DAILY [facility] Last Admin: 10/10/17 09:27 Dose: 40 mg Guaifenesin (Robitussin) 100 mg PO Q4H [facility] PRN Reason: Cough Last Admin: 10/10/17 09:26 Dose: 100 mg Piperacillin Sod/Tazobactam Sod (Zosyn 2.25 Gm Iv Premix) 2.25 gm in 50 mls @ 100 mls/hr IVPB Q6H [facility] PRN Reason: Protocol Last Admin: 10/10/17 04:52 Dose: 100 mls/hr Insulin Aspart (Novolog) 0 unit SC ACHS [facility] PRN Reason: Protocol Last Admin: 10/10/17 07:37 Dose: Not Given Insulin Glargine (Lantus) 10 unit SC HS [facility] Last Admin: 10/09/17 22:16 Dose: 10 units Latanoprost (Xalatan Opht) 1 ml OS HS [facility] Last Admin: 10/09/17 22:16 Dose: 1 ml Magnesium Oxide (Mag-Ox) 400 mg PO BID [facility] Last Admin: 10/10/17 09:26 Dose: 400 mg Montelukast Sodium (Singulair) 10 mg PO HS [facility] Last Admin: 10/09/17 22:16 Dose: 10 mg Pantoprazole Sodium (Protonix Ec Tab) 40 mg PO DAILY [facility] Last Admin: 10/10/17 09:26 Dose: 40 mg Rosuvastatin Calcium (Crestor) 5 mg PO HS [facility] Last Admin: 10/09/17 22:16 Dose: 5 mg Saccharomyces Boulardii (Florastor) 250 mg PO BID [facility] Last Admin: 10/10/17 09:26 Dose: 250 mg Sevelamer Carbonate (Renvela) 0.8 gm GT TIDCC [facility] Last Admin: 10/10/17 09:26 Dose: 0.8 gm Sodium Bicarbonate (Sodium Bicarbonate Tab) 650 mg PO BID [facility] Last Admin: 10/10/17 09:26 Dose: 650 mg Tamsulosin HCl (Flomax) 0.4 mg PO DAILY [facility] Last Admin: 10/10/17 09:26 Dose: 0.4 mg Timolol Maleate (Timoptic 0.25% Oph Soln) 1 drop OU Q12H [facility] Last Admin: 10/10/17 09:27 Dose: 1 drop Vitamin B Complex/Vit C/Folic Acid (Nephro-Fe) 1 tab PO 0800 [facility] Last Admin: 10/10/17 09:26 Dose: 1 tab - Labs Labs: 10/10/17 07:25 10/10/17 07:25 PT 13.6 SECONDS (9.7-12.2) H 10/07/17 06:44 INR 1.2 10/07/17 06:44 APTT 30 SECONDS (21-34) 10/07/17 06:44 Attending/Attestation - Attestation I have personally seen and examined this patient.: Yes I have fully participated in the care of the patient.: Yes I have reviewed all pertinent clinical information, including history, physical exam and plan: Yes Notes (Text): case seen and d.w staff and resident, concurred with finding and management..
--- NOTE | 2017-10-06 17:40 | CP.PCM.PN ---
Subjective - Date & Time of Evaluation Date of Evaluation: 10/06/17 Time of Evaluation: 10:00 - Subjective Subjective: clinically same Objective - Vital Signs/Intake and Output Vital Signs (last 24 hours): Temp Pulse Resp BP Pulse Ox 97.5 F L 80 24 138/69 100 10/06/17 16:00 10/06/17 17:00 10/06/17 17:00 10/06/17 16:34 10/06/17 12:34 Intake and Output: 10/06/17 10/06/17 06:59 18:59 Intake Total 550 1370 Output Total 1100 1 Balance -550 1369 - Medications Medications: Current Medications Albuterol/Ipratropium (Duoneb 3 Mg/0.5 Mg (3 Ml) Ud) 3 ml INH RQ6 [facility] Last Admin: 10/06/17 13:43 Dose: 3 ml Aspirin (Aspirin Chewable) 81 mg PO DAILY [facility] Last Admin: 10/06/17 09:01 Dose: 81 mg Carvedilol (Coreg) 3.125 mg PO BID [facility] Last Admin: 10/06/17 17:02 Dose: 3.125 mg Dorzolamide HCl (Trusopt) 0 ml OU BID [facility] Last Admin: 10/06/17 17:03 Dose: 1 drop Epoetin Jacob (Procrit) 10,000 unit SC MWF [facility] Last Admin: 10/06/17 09:02 Dose: 10,000 unit Ergocalciferol (Drisdol 50,000 Intl Units Cap) 1 cap PO Q7D [facility] Last Admin: 10/02/17 10:45 Dose: 1 cap Ferrous Gluconate (Fergon) 324 mg PO TID [facility] Last Admin: 10/06/17 17:03 Dose: 324 mg Furosemide (Lasix) 40 mg PO DAILY [facility] Last Admin: 10/06/17 09:02 Dose: 40 mg Piperacillin Sod/Tazobactam Sod (Zosyn 2.25 Gm Iv Premix) 2.25 gm in 50 mls @ 100 mls/hr IVPB Q6H [facility] PRN Reason: Protocol Last Admin: 10/06/17 16:25 Dose: 100 mls/hr Insulin Aspart (Novolog) 0 unit SC ACHS [facility] PRN Reason: Protocol Last Admin: 10/06/17 16:24 Dose: 4 unit Insulin Glargine (Lantus) 10 unit SC HS [facility] Last Admin: 10/05/17 21:48 Dose: 10 units Latanoprost (Xalatan Opht) 1 ml OS HS [facility] Last Admin: 10/05/17 21:47 Dose: 1 ml Magnesium Oxide (Mag-Ox) 400 mg PO BID [facility] Last Admin: 10/06/17 17:03 Dose: 400 mg Montelukast Sodium (Singulair) 10 mg PO HS [facility] Last Admin: 10/05/17 21:47 Dose: 10 mg Pantoprazole Sodium (Protonix Ec Tab) 40 mg PO DAILY [facility] Last Admin: 10/06/17 09:07 Dose: 40 mg Rosuvastatin Calcium (Crestor) 5 mg PO HS [facility] Last Admin: 10/05/17 21:47 Dose: 5 mg Saccharomyces Boulardii (Florastor) 250 mg PO BID [facility] Last Admin: 10/06/17 17:04 Dose: 250 mg Sevelamer Carbonate (Renvela) 0.8 gm GT TIDCC [facility] Last Admin: 10/06/17 16:25 Dose: 0.8 gm Sodium Bicarbonate (Sodium Bicarbonate Tab) 650 mg PO BID [facility] Last Admin: 10/06/17 17:03 Dose: 650 mg Tamsulosin HCl (Flomax) 0.4 mg PO DAILY [facility] Last Admin: 10/06/17 09:02 Dose: 0.4 mg Timolol Maleate (Timoptic 0.25% Oph Soln) 1 drop OU Q12H [facility] Last Admin: 10/06/17 09:04 Dose: 1 drop Vitamin B Complex/Vit C/Folic Acid (Nephro-Fe) 1 tab PO 0800 [facility] Last Admin: 10/06/17 07:55 Dose: 1 tab - Labs Labs: 10/06/17 12:18 10/06/17 12:18 PT 15.6 SECONDS (9.7-12.2) H 09/30/17 00:35 INR 1.4 09/30/17 00:35 APTT 30 SECONDS (21-34) 09/30/17 00:35 - Constitutional Appears: Well - Head Exam Head Exam: ATRAUMATIC, NORMAL INSPECTION, NORMOCEPHALIC - Eye Exam Eye Exam: EOMI, Normal appearance, PERRL Pupil Exam: NORMAL ACCOMODATION, PERRL - ENT Exam ENT Exam: Mucous Membranes Moist, Normal Exam - Neck Exam Neck Exam: Full ROM, Normal Inspection. absent: Lymphadenopathy - Respiratory Exam Respiratory Exam: Decreased Breath Sounds - Cardiovascular Exam Cardiovascular Exam: REGULAR RHYTHM, +S1, +S2 - GI/Abdominal Exam GI & Abdominal Exam: Soft, Diminished Bowel Sounds - Rectal Exam Rectal Exam: Deferred
[2017-10-06] MEDS: Latanoprost 2.5 ml Opht Soln OS SCH (21:16)
[2017-10-06] MEDS: (Lantus) Insulin Glargine, Recombinant SC SCH (21:17)
--- NOTE | 2017-10-06 23:28 | CP.PCM.PN ---
Subjective - Date & Time of Evaluation Date of Evaluation: 10/06/17 Time of Evaluation: 18:50 - Subjective Subjective: Has cough Objective - Vital Signs/Intake and Output Vital Signs (last 24 hours): Temp Pulse Resp BP Pulse Ox 97.6 F 79 19 146/67 100 10/06/17 20:00 10/06/17 20:00 10/06/17 20:00 10/06/17 20:00 10/06/17 20:00 Intake and Output: 10/06/17 10/07/17 18:59 06:59 Intake Total 1370 200 Output Total 1 400 Balance 1369 -200 - Medications Medications: Current Medications Albuterol/Ipratropium (Duoneb 3 Mg/0.5 Mg (3 Ml) Ud) 3 ml INH RQ6 [facility] Last Admin: 10/06/17 19:45 Dose: 3 ml Aspirin (Aspirin Chewable) 81 mg PO DAILY [facility] Last Admin: 10/06/17 09:01 Dose: 81 mg Carvedilol (Coreg) 3.125 mg PO BID [facility] Last Admin: 10/06/17 17:02 Dose: 3.125 mg Dorzolamide HCl (Trusopt) 0 ml OU BID [facility] Last Admin: 10/06/17 17:03 Dose: 1 drop Epoetin Jacob (Procrit) 10,000 unit SC MWF [facility] Last Admin: 10/06/17 09:02 Dose: 10,000 unit Ergocalciferol (Drisdol 50,000 Intl Units Cap) 1 cap PO Q7D [facility] Last Admin: 10/02/17 10:45 Dose: 1 cap Ferrous Gluconate (Fergon) 324 mg PO TID [facility] Last Admin: 10/06/17 17:03 Dose: 324 mg Furosemide (Lasix) 40 mg PO DAILY [facility] Last Admin: 10/06/17 09:02 Dose: 40 mg Piperacillin Sod/Tazobactam Sod (Zosyn 2.25 Gm Iv Premix) 2.25 gm in 50 mls @ 100 mls/hr IVPB Q6H [facility] PRN Reason: Protocol Last Admin: 10/06/17 21:16 Dose: 100 mls/hr Insulin Aspart (Novolog) 0 unit SC ACHS [facility] PRN Reason: Protocol Last Admin: 10/06/17 21:35 Dose: Not Given Insulin Glargine (Lantus) 10 unit SC HS [facility] Last Admin: 10/06/17 21:17 Dose: 10 units Latanoprost (Xalatan Opht) 1 ml OS HS [facility] Last Admin: 10/06/17 21:16 Dose: 1 ml Magnesium Oxide (Mag-Ox) 400 mg PO BID [facility] Last Admin: 10/06/17 17:03 Dose: 400 mg Montelukast Sodium (Singulair) 10 mg PO HS [facility] Last Admin: 10/06/17 21:17 Dose: 10 mg Pantoprazole Sodium (Protonix Ec Tab) 40 mg PO DAILY [facility] Last Admin: 10/06/17 09:07 Dose: 40 mg Rosuvastatin Calcium (Crestor) 5 mg PO HS [facility] Last Admin: 10/06/17 21:17 Dose: 5 mg Saccharomyces Boulardii (Florastor) 250 mg PO BID [facility] Last Admin: 10/06/17 17:04 Dose: 250 mg Sevelamer Carbonate (Renvela) 0.8 gm GT TIDCC [facility] Last Admin: 10/06/17 16:25 Dose: 0.8 gm Sodium Bicarbonate (Sodium Bicarbonate Tab) 650 mg PO BID [facility] Last Admin: 10/06/17 17:03 Dose: 650 mg Tamsulosin HCl (Flomax) 0.4 mg PO DAILY [facility] Last Admin: 10/06/17 09:02 Dose: 0.4 mg Timolol Maleate (Timoptic 0.25% Ophth Soln) 1 drop OU Q12H [facility] Last Admin: 10/06/17 21:16 Dose: 1 drop Vitamin B Complex/Vit C/Folic Acid (Nephro-Fe) 1 tab PO 0800 [facility] Last Admin: 10/06/17 07:55 Dose: 1 tab - Labs Labs: 10/06/17 12:18 10/06/17 12:18 PT 15.6 SECONDS (9.7-12.2) H 09/30/17 00:35 INR 1.4 09/30/17 00:35 APTT 30 SECONDS (21-34) 09/30/17 00:35 - Head Exam Head Exam: ATRAUMATIC - Eye Exam Eye Exam: Normal appearance - ENT Exam ENT Exam: Mucous Membranes Dry - Respiratory Exam Respiratory Exam: NORMAL BREATHING PATTERN - Cardiovascular Exam Cardiovascular Exam: +S1, +S2 - GI/Abdominal Exam GI & Abdominal Exam: Normal Bowel Sounds Assessment and Plan (1) Anemia Assessment & Plan: anemia of CKD and chronic disease; okay to use Procrit despite likely prostate cancer imaging suggestive on bone metastasis; likely contributing to anemia transfusion support PRN f/u FOBT Status: Acute (2) Elevated PSA Assessment & Plan: 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
[2017-10-07] MEDS: Albuterol-Ipratrop 3 mg / 0.5 (3 ml) UD INH SCH ×3 (01:18→13:40)
[2017-10-07] MEDS: Piperacill/Tazo 2.25gm in Dex 2.25 GM/50 ML BAG IVPB SCH ×4 (03:12→21:26)
[2017-10-07 06:54] LABS: BASO # 0.1 K/uL (0.0-0.2); BASO % 0.6 % (0.0-2.0); EOS # 0.3 K/uL (0.0-0.7); EOS % 1.9 % (0.0-4.0); HEMOGLOBIN 10.7 g/dL (12.0-18.0); LYMPH # 2.4 K/uL (1.0-4.3); LYMPH % 14.8 % (20.0-40.0); MEAN CELL VOLUME 86.7 fL (80.0-94.0); MEAN CORPUSCULAR HEMOGLOBIN 29.4 pg (27.0-31.0); MEAN CORPUSCULAR HGB CONC 33.9 g/dL (33.0-37.0); MEAN PLATELET VOLUME 7.5 fL (7.2-11.7); MONO # 1.3 K/uL (0.0-0.8); MONO % 8.3 % (0.0-10.0); NEUT # 11.8 K/uL (1.8-7.0); NEUT % 74.4 % (50.0-75.0); NRBC % 0.1 % (0.0-2.0); RBC 3.64 Mil/uL (4.40-5.90); RED CELL DISTRIBUTION WIDTH 14.3 % (11.5-14.5); WHITE BLOOD COUNT 15.9 K/uL (4.8-10.8)
[2017-10-07 06:56] LABS: INR 1.2; PROTHROMBIN TIME 13.6 SECONDS (9.7-12.2)
[2017-10-07 07:03] LABS: CALCIUM 8.8 mg/dl (8.6-10.4)
[2017-10-07] MEDS: (Novolog) Insulin Aspart, Recombinant 100 u/ml 10 ml vial SC SCH ×4 (07:46→21:30)
[2017-10-07] MEDS: Sevelamer Carb 0.8 gm/Packet GT SCH ×3 (09:00→17:48)
[2017-10-07] MEDS: Multivitamin Vitamin B Complex (Nephro-Vite) Tab PO SCH (09:00)
[2017-10-07] MEDS: Magnesium Oxide 400 mg Tab UD PO SCH ×2 (09:36→17:52)
[2017-10-07] MEDS: Pantoprazole 40 mg EC Tab PO SCH (09:37)
[2017-10-07] MEDS: Saccharomyces Boulardi 250 mg Cap PO SCH ×2 (09:37→17:48)
[2017-10-07] MEDS: Timolol 0.25% Ophth SOLN OU SCH ×2 (09:40→21:26)
[2017-10-07] MEDS: Dorzolamide 2% Opht Sol 10ml OU SCH ×2 (09:43→17:49)
--- NOTE | 2017-10-07 13:05 | CP.PCM.PN ---
Subjective - Date & Time of Evaluation Date of Evaluation: 10/07/17 Time of Evaluation: 11:45 - Subjective Subjective: Breathing better, some cough. Objective - Vital Signs/Intake and Output Vital Signs (last 24 hours): Temp Pulse Resp BP Pulse Ox 97.9 F 76 18 137/64 97 10/07/17 09:01 10/07/17 09:01 10/07/17 09:01 10/07/17 09:36 10/07/17 09:01 Intake and Output: 10/07/17 10/07/17 06:59 18:59 Intake Total 500 Output Total 1100 Balance -600 - Medications Medications: Current Medications Albuterol/Ipratropium (Duoneb 3 Mg/0.5 Mg (3 Ml) Ud) 3 ml INH RQ6 [facility] Last Admin: 10/07/17 07:59 Dose: 3 ml Aspirin (Aspirin Chewable) 81 mg PO DAILY [facility] Last Admin: 10/07/17 09:37 Dose: 81 mg Carvedilol (Coreg) 3.125 mg PO BID [facility] Last Admin: 10/07/17 09:37 Dose: 3.125 mg Dorzolamide HCl (Trusopt) 0 ml OU BID [facility] Last Admin: 10/07/17 09:43 Dose: 1 drop Epoetin Jacob (Procrit) 10,000 unit SC MWF [facility] Last Admin: 10/06/17 09:02 Dose: 10,000 unit Ergocalciferol (Drisdol 50,000 Intl Units Cap) 1 cap PO Q7D [facility] Last Admin: 10/02/17 10:45 Dose: 1 cap Ferrous Gluconate (Fergon) 324 mg PO TID [facility] Last Admin: 10/07/17 09:38 Dose: 324 mg Furosemide (Lasix) 40 mg PO DAILY [facility] Last Admin: 10/07/17 09:36 Dose: 40 mg Piperacillin Sod/Tazobactam Sod (Zosyn 2.25 Gm Iv Premix) 2.25 gm in 50 mls @ 100 mls/hr IVPB Q6H [facility] PRN Reason: Protocol Last Admin: 10/07/17 11:00 Dose: 100 mls/hr Insulin Aspart (Novolog) 0 unit SC ACHS [facility] PRN Reason: Protocol Last Admin: 10/07/17 12:30 Dose: 2 unit Insulin Glargine (Lantus) 10 unit SC HS [facility] Last Admin: 10/06/17 21:17 Dose: 10 units Latanoprost (Xalatan Opht) 1 ml OS HS [facility] Last Admin: 10/06/17 21:16 Dose: 1 ml Magnesium Oxide (Mag-Ox) 400 mg PO BID [facility] Last Admin: 10/07/17 09:36 Dose: 400 mg Montelukast Sodium (Singulair) [address] [facility] Last Admin: 10/06/17 21:17 Dose: 10 mg Pantoprazole Sodium (Protonix Ec Tab) 40 mg PO DAILY [facility] Last Admin: 10/07/17 09:37 Dose: 40 mg Rosuvastatin Calcium (Crestor) [address] [facility] Last Admin: 10/06/17 21:17 Dose: 5 mg Saccharomyces Boulardii (Florastor) 250 mg PO BID [facility] Last Admin: 10/07/17 09:37 Dose: 250 mg Sevelamer Carbonate (Renvela) 0.8 gm GT TIDCC [facility] Last Admin: 10/07/17 09:00 Dose: 0.8 gm Sodium Bicarbonate (Sodium Bicarbonate Tab) 650 mg PO BID [facility] Last Admin: 10/07/17 09:37 Dose: 650 mg Tamsulosin HCl (Flomax) 0.4 mg PO DAILY [facility] Last Admin: 10/07/17 09:37 Dose: 0.4 mg Timolol Maleate (Timoptic 0.25% Oph Soln) 1 drop OU Q12H [facility] Last Admin: 10/07/17 09:40 Dose: 1 drop Vitamin B Complex/Vit C/Folic Acid (Nephro-Fe) 1 tab PO 0800 [facility] Last Admin: 10/07/17 09:00 Dose: 1 tab - Labs Labs: 10/07/17 06:44 10/07/17 06:41 PT 13.6 SECONDS (9.7-12.2) H 10/07/17 06:44 INR 1.2 10/07/17 06:44 APTT 30 SECONDS (21-34) 10/07/17 06:44 - Head Exam Head Exam: ATRAUMATIC - Eye Exam Eye Exam: Normal appearance - ENT Exam ENT Exam: Mucous Membranes Dry - Respiratory Exam Respiratory Exam: NORMAL BREATHING PATTERN - Cardiovascular Exam Cardiovascular Exam: +S1, +S2 - GI/Abdominal Exam GI & Abdominal Exam: Normal Bowel Sounds Assessment and Plan (1) Anemia Assessment & Plan: anemia of CKD and chronic disease; okay to use Procrit despite likely prostate cancer imaging suggestive on bone metastasis; likely contributing to anemia transfusion support PRN f/u FOBT Status: Acute (2) Elevated PSA Assessment & Plan: 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
--- NOTE | 2017-10-07 15:24 | CP.PCM.PN ---
Subjective - Date & Time of Evaluation Date of Evaluation: 10/07/17 Time of Evaluation: 07:40 - Subjective Subjective: clinically same Objective - Vital Signs/Intake and Output Vital Signs (last 24 hours): Temp Pulse Resp BP Pulse Ox 97.9 F 76 18 137/64 97 10/07/17 09:01 10/07/17 09:01 10/07/17 09:01 10/07/17 09:36 10/07/17 09:01 Intake and Output: 10/07/17 10/07/17 06:59 18:59 Intake Total 500 300 Output Total 1100 2000 Balance -600 -1700 - Medications Medications: Current Medications Albuterol/Ipratropium (Duoneb 3 Mg/0.5 Mg (3 Ml) Ud) 3 ml INH RQ6 [facility] Last Admin: 10/07/17 13:40 Dose: 3 ml Aspirin (Aspirin Chewable) 81 mg PO DAILY [facility] Last Admin: 10/07/17 09:37 Dose: 81 mg Carvedilol (Coreg) 3.125 mg PO BID [facility] Last Admin: 10/07/17 09:37 Dose: 3.125 mg Dorzolamide HCl (Trusopt) 0 ml OU BID [facility] Last Admin: 10/07/17 09:43 Dose: 1 drop Epoetin Jacob (Procrit) 10,000 unit SC MWF [facility] Last Admin: 10/06/17 09:02 Dose: 10,000 unit Ergocalciferol (Drisdol 50,000 Intl Units Cap) 1 cap PO Q7D [facility] Last Admin: 10/02/17 10:45 Dose: 1 cap Ferrous Gluconate (Fergon) 324 mg PO TID [facility] Last Admin: 10/07/17 13:37 Dose: 324 mg Furosemide (Lasix) 40 mg PO DAILY [facility] Last Admin: 10/07/17 09:36 Dose: 40 mg Piperacillin Sod/Tazobactam Sod (Zosyn 2.25 Gm Iv Premix) 2.25 gm in 50 mls @ 100 mls/hr IVPB Q6H [facility] PRN Reason: Protocol Last Admin: 10/07/17 11:00 Dose: 100 mls/hr Insulin Aspart (Novolog) 0 unit SC ACHS [facility] PRN Reason: Protocol Last Admin: 10/07/17 12:30 Dose: 2 unit Insulin Glargine (Lantus) 10 unit SC HS [facility] Last Admin: 10/06/17 21:17 Dose: 10 units Latanoprost (Xalatan Opht) 1 ml OS HS [facility] Last Admin: 10/06/17 21:16 Dose: 1 ml Magnesium Oxide (Mag-Ox) 400 mg PO BID [facility] Last Admin: 10/07/17 09:36 Dose: 400 mg Montelukast Sodium (Singulair) 10 mg PO HS [facility] Last Admin: 10/06/17 21:17 Dose: 10 mg Pantoprazole Sodium (Protonix Ec Tab) 40 mg PO DAILY [facility] Last Admin: 10/07/17 09:37 Dose: 40 mg Rosuvastatin Calcium (Crestor) 5 mg PO HS [facility] Last Admin: 10/06/17 21:17 Dose: 5 mg Saccharomyces Boulardii (Florastor) 250 mg PO BID [facility] Last Admin: 10/07/17 09:37 Dose: 250 mg Sevelamer Carbonate (Renvela) 0.8 gm GT TIDCC [facility] Last Admin: 10/07/17 13:00 Dose: 0.8 gm Sodium Bicarbonate (Sodium Bicarbonate Tab) 650 mg PO BID [facility] Last Admin: 10/07/17 09:37 Dose: 650 mg Tamsulosin HCl (Flomax) 0.4 mg PO DAILY [facility] Last Admin: 10/07/17 09:37 Dose: 0.4 mg Timolol Maleate (Timoptic 0.25% Oph Soln) 1 drop OU Q12H [facility] Last Admin: 10/07/17 09:40 Dose: 1 drop Vitamin B Complex/Vit C/Folic Acid (Nephro-Fe) 1 tab PO 0800 [facility] Last Admin: 10/07/17 09:00 Dose: 1 tab - Labs Labs: 10/07/17 06:44 10/07/17 06:41 PT 13.6 SECONDS (9.7-12.2) H 10/07/17 06:44 INR 1.2 10/07/17 06:44 APTT 30 SECONDS (21-34) 10/07/17 06:44 - Constitutional Appears: Well - Head Exam Head Exam: ATRAUMATIC, NORMAL INSPECTION, NORMOCEPHALIC - Eye Exam Eye Exam: EOMI, Normal appearance, PERRL Pupil Exam: NORMAL ACCOMODATION, PERRL - ENT Exam ENT Exam: Mucous Membranes Moist, Normal Exam - Neck Exam Neck Exam: Full ROM, Normal Inspection. absent: Lymphadenopathy - Respiratory Exam Respiratory Exam: Decreased Breath Sounds - Cardiovascular Exam Cardiovascular Exam: REGULAR RHYTHM, +S1, +S2 - GI/Abdominal Exam GI & Abdominal Exam: Soft, Diminished Bowel Sounds - Rectal Exam Rectal Exam: Deferred
--- NOTE | 2017-10-07 15:28 | CP.PCM.PN ---
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 fluid overload hx of DM, HTN Vit D def and mild hyperphosphatemia Plan No acute need for renal replacement therapy at this time. Maintain hemodynamics stable, avoid hypotension, Patient not on ACEI/ARB due to SHANNAN Monitor Input/Output, daily weights and renal function with basic metabolic panel continue with iron supplements, MVI and Flomax 0.4 mg once a day supplement with weekly vit D. PTH level 163 in target range hence d/c calcitriol appreciate Heme evaluation Anemia management as per heme/onc. pt started on epogen Bladder scan done 10/06/17>>600 mL, pt with obstructive uropathy, need indwelling garcia until definite treatment by hence d/w RN to re-insert garcia catheter. Dose meds/antibiotics for reduced GFR. Avoid fleets enema/magnesium based laxatives. Avoid nephrotoxins/NSAIDs/ iodinated contrast (unless needed emergently) Glycemic control Further work up/management as per primary team Thanks for allowing me to participate in care of your patient. Will follow patient with you. Please call if any Qs. 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 pt seen by heme/onc. Denies OTC/herbal meds or NSAIDs No recent iodinated contrast exposure. No obvious episodes of low BP pt was seen in office recently ~ 2 weeks ago when his serum cr 2.3 and started on epogen for anemia and lasix for edema. pt intubated 10/02/17 evening for respi failure and transferred to MICU ROS: pt feels better. denies CP/SOB. c/o cough Physical Examination: General Appearance: comfortable, in no respiratory distress,. coperative Vitals reviewed and noted as below Head; Atraumatic, normocephalic ENT: normal oral mucosa no thrush/rash or ulcer. EYES: Pupils are equal, round and reactive to light accommodation. Eye muscles and extraocular movement intact. Sclera is anicteric. Neck; supple no lymphadenopathy, no thyromegaly or bruit Lungs: normal respiratory rate/effort. Breath sounds bilateral with basal rales Heart: Normal rate. s1s2 normal. No rub or gallop. Extremities: no edema. No varicose veins Neurological: Patient is awake alert follow commands, no focal deficit. Skin: Warm and dry. Normal turgor. No rash. Palpitation: Normal elasticity for age Abdomen: Abdomen is soft. Bowel sounds +. There is no abdominal tenderness, no guarding/rigidity no organomegaly Psych: limited insight. normal affect MSK: no joint tenderness or swelling. Digits and nails normal, no deformity : kidney not palpable bladder distended Labs/imaging reviewed. Past medical history, past surgical history, family history, social history, allergy reviewed and noted as below Family hx: no hx of CKD. Rest non-contributory Renal sonogram severe bilateral hydronephrosis Urine protein creatinine ratio 2 gram Iron saturation 7% ferritin 198 Objective - Vital Signs/Intake and Output Vital Signs (last 24 hours): Temp Pulse Resp BP Pulse Ox 97.9 F 76 18 137/64 97 10/07/17 09:01 10/07/17 09:01 10/07/17 09:01 10/07/17 09:36 10/07/17 09:01 Intake and Output: 10/07/17 10/07/17 06:59 18:59 Intake Total 500 300 Output Total 1100 2000 Balance -600 -1700 - Medications Medications: Current Medications Albuterol/Ipratropium (Duoneb 3 Mg/0.5 Mg (3 Ml) Ud) 3 ml INH RQ6 [facility] Last Admin: 10/07/17 13:40 Dose: 3 ml Aspirin (Aspirin Chewable) 81 mg PO DAILY [facility] Last Admin: 10/07/17 09:37 Dose: 81 mg Carvedilol (Coreg) 3.125 mg PO BID [facility] Last Admin: 10/07/17 09:37 Dose: 3.125 mg Dorzolamide HCl (Trusopt) 0 ml OU BID [facility] Last Admin: 10/07/17 09:43 Dose: 1 drop Epoetin Jaocb (Procrit) 10,000 unit SC MWF [facility] Last Admin: 10/06/17 09:02 Dose: 10,000 unit Ergocalciferol (Drisdol 50,000 Intl Units Cap) 1 cap PO Q7D [facility] Last Admin: 10/02/17 10:45 Dose: 1 cap Ferrous Gluconate (Fergon) 324 mg PO TID [facility] Last Admin: 10/07/17 13:37 Dose: 324 mg Furosemide (Lasix) 40 mg PO DAILY [facility] Last Admin: 10/07/17 09:36 Dose: 40 mg Piperacillin Sod/Tazobactam Sod (Zosyn 2.25 Gm Iv Premix) 2.25 gm in 50 mls @ 100 mls/hr IVPB Q6H [facility] PRN Reason: Protocol Last Admin: 10/07/17 11:00 Dose: 100 mls/hr Insulin Aspart (Novolog) 0 unit SC ACHS [facility] PRN Reason: Protocol Last Admin: 10/07/17 12:30 Dose: 2 unit Insulin Glargine (Lantus) 10 unit SC HS [facility] Last Admin: 10/06/17 21:17 Dose: 10 units Latanoprost (Xalatan Opht) 1 ml OS HS [facility] Last Admin: 10/06/17 21:16 Dose: 1 ml Magnesium Oxide (Mag-Ox) 400 mg PO BID [facility] Last Admin: 10/07/17 09:36 Dose: 400 mg Montelukast Sodium (Singulair) 10 mg PO HS [facility] Last Admin: 10/06/17 21:17 Dose: 10 mg Pantoprazole Sodium (Protonix Ec Tab) 40 mg PO DAILY [facility] Last Admin: 10/07/17 09:37 Dose: 40 mg Rosuvastatin Calcium (Crestor) 5 mg PO HS [facility] Last Admin: 10/06/17 21:17 Dose: 5 mg Saccharomyces Boulardii (Florastor) 250 mg PO BID [facility] Last Admin: 10/07/17 09:37 Dose: 250 mg Sevelamer Carbonate (Renvela) 0.8 gm GT TIDCC [facility] Last Admin: 10/07/17 13:00 Dose: 0.8 gm Sodium Bicarbonate (Sodium Bicarbonate Tab) 650 mg PO BID [facility] Last Admin: 10/07/17 09:37 Dose: 650 mg Tamsulosin HCl (Flomax) 0.4 mg PO DAILY [facility] Last Admin: 10/07/17 09:37 Dose: 0.4 mg Timolol Maleate (Timoptic 0.25% Oph Soln) 1 drop OU Q12H [facility] Last Admin: 10/07/17 09:40 Dose: 1 drop Vitamin B Complex/Vit C/Folic Acid (Nephro-Fe) 1 tab PO 0800 [facility] Last Admin: 10/07/17 09:00 Dose: 1 tab - Labs Labs: 10/07/17 06:44 10/07/17 06:41 PT 13.6 SECONDS (9.7-12.2) H 10/07/17 06:44 INR 1.2 10/07/17 06:44 APTT 30 SECONDS (21-34) 10/07/17 06:44
[2017-10-07] MEDS: Latanoprost 2.5 ml Opht Soln OS SCH (21:25)
[2017-10-07] MEDS: (Lantus) Insulin Glargine, Recombinant SC SCH (21:27)
[2017-10-08] MEDS: Albuterol-Ipratrop 3 mg / 0.5 (3 ml) UD INH SCH ×4 (01:40→19:26)
[2017-10-08] MEDS: Piperacill/Tazo 2.25gm in Dex 2.25 GM/50 ML BAG IVPB SCH ×4 (04:40→22:09)
[2017-10-08] MEDS ORDERED: Dextrose 50% VIAL Inj (50 ml) IV ONE (07:09)
[2017-10-08] MEDS ORDERED: Dextrose 50% SYRINGE Inj (50 ml) IV STA (07:13)
[2017-10-08 07:39] LABS: CALCIUM 8.4 mg/dl (8.6-10.4)
[2017-10-08 07:41] LABS: BASO # 0.1 K/uL (0.0-0.2); BASO % 0.5 % (0.0-2.0); EOS # 0.1 K/uL (0.0-0.7); EOS % 0.6 % (0.0-4.0); HEMOGLOBIN 10.5 g/dL (12.0-18.0); LYMPH # 1.8 K/uL (1.0-4.3); MEAN CELL VOLUME 86.7 fL (80.0-94.0); MEAN CORPUSCULAR HEMOGLOBIN 29.9 pg (27.0-31.0); MEAN CORPUSCULAR HGB CONC 34.5 g/dL (33.0-37.0); MEAN PLATELET VOLUME 7.3 fL (7.2-11.7); MONO # 0.9 K/uL (0.0-0.8); MONO % 5.9 % (0.0-10.0); RBC 3.52 Mil/uL (4.40-5.90); RED CELL DISTRIBUTION WIDTH 14.8 % (11.5-14.5); WHITE BLOOD COUNT 15.9 K/uL (4.8-10.8)
[2017-10-08] MEDS: (Novolog) Insulin Aspart, Recombinant 100 u/ml 10 ml vial SC SCH ×4 (08:30→21:56)
[2017-10-08] MEDS: Sevelamer Carb 0.8 gm/Packet GT SCH ×3 (09:00→17:39)
[2017-10-08] MEDS: Multivitamin Vitamin B Complex (Nephro-Vite) Tab PO SCH (09:00)
[2017-10-08] MEDS: Epoetin Alfa 10,000 unit/ml Dialysis SC SCH (09:42)
[2017-10-08] MEDS: Magnesium Oxide 400 mg Tab UD PO SCH ×2 (09:44→17:39)
[2017-10-08] MEDS: Pantoprazole 40 mg EC Tab PO SCH (09:45)
[2017-10-08] MEDS: Saccharomyces Boulardi 250 mg Cap PO SCH ×2 (09:45→17:39)
[2017-10-08] MEDS: Dorzolamide 2% Opht Sol 10ml OU SCH ×2 (09:48→17:40)
[2017-10-08] MEDS: Timolol 0.25% Ophth SOLN OU SCH ×2 (09:51→22:09)
[2017-10-08] MEDS: guaiFENesin 100 mg/5 ml Syrup UD PO PRN ×3 (10:46→23:12)
--- NOTE | 2017-10-08 12:06 | CP.PCM.CON ---
Past Patient History - Infectious Disease Hx of Infectious Diseases: None - Past Medical History & Family History Past Medical History?: Yes - Past Social History Smoking Status: Never Smoked - CARDIAC Hx Hypertension: Yes - PULMONARY Hx Respiratory Disorders: No - NEUROLOGICAL Hx Neurological Disorder: No - HEENT Hx HEENT Problems: No - RENAL Hx Chronic Kidney Disease: No - ENDOCRINE/METABOLIC Hx Diabetes Mellitus Type 2: Yes - HEMATOLOGICAL/ONCOLOGICAL Hx Anemia: Yes - INTEGUMENTARY Hx Dermatological Problems: No - MUSCULOSKELETAL/RHEUMATOLOGICAL Hx Arthritis: Yes - GASTROINTESTINAL Hx Gastrointestinal Disorders: Yes Hx Gastroesophageal Reflux: Yes - GENITOURINARY/GYNECOLOGICAL Hx Prostate Problems: Yes - PSYCHIATRIC Hx Substance Use: No - SURGICAL HISTORY Hx Surgeries: Yes Other/Comment: Prostate - ANESTHESIA Hx Anesthesia: No Hx Anesthesia Reactions: No Hx Malignant Hyperthermia: No Meds Allergies/Adverse Reactions: Allergies Allergy/AdvReac Type Severity Reaction Status Date / Time No Known Allergies Allergy Verified 09/30/17 00:20 - Medications Medications: Current Medications Albuterol/Ipratropium (Duoneb 3 Mg/0.5 Mg (3 Ml) Ud) 3 ml INH RQ6 [facility] Last Admin: 10/08/17 08:05 Dose: 3 ml Aspirin (Aspirin Chewable) 81 mg PO DAILY [facility] Last Admin: 10/07/17 09:37 Dose: 81 mg Carvedilol (Coreg) 3.125 mg PO BID [facility] Last Admin: 10/08/17 09:45 Dose: 3.125 mg Dorzolamide HCl (Trusopt) 0 ml OU BID [facility] Last Admin: 10/08/17 09:48 Dose: 1 drop Epoetin Jacob (Procrit) 10,000 unit SC MWF [facility] Last Admin: 10/08/17 09:42 Dose: 10,000 unit Ergocalciferol (Drisdol 50,000 Intl Units Cap) 1 cap PO Q7D [facility] Last Admin: 10/02/17 10:45 Dose: 1 cap Ferrous Gluconate (Fergon) 324 mg PO TID [facility] Last Admin: 10/08/17 09:45 Dose: 324 mg Furosemide (Lasix) 40 mg PO DAILY [facility] Last Admin: 10/08/17 09:44 Dose: 40 mg Guaifenesin (Robitussin) 100 mg PO Q4H [facility] PRN Reason: Cough Last Admin: 10/08/17 10:46 Dose: 100 mg Piperacillin Sod/Tazobactam Sod (Zosyn 2.25 Gm Iv Premix) 2.25 gm in 50 mls @ 100 mls/hr IVPB Q6H [facility] PRN Reason: Protocol Last Admin: 10/08/17 10:03 Dose: 100 mls/hr Insulin Aspart (Novolog) 0 unit SC ACHS [facility] PRN Reason: Protocol Last Admin: 10/08/17 08:30 Dose: Not Given Insulin Glargine (Lantus) 10 unit SC [facility] Last Admin: 10/07/17 21:27 Dose: 10 units Latanoprost (Xalatan Opht) 1 ml OS HS [facility] Last Admin: 10/07/17 21:25 Dose: 1 ml Magnesium Oxide (Mag-Ox) 400 mg PO BID [facility] Last Admin: 10/08/17 09:44 Dose: 400 mg Montelukast Sodium (Singulair) 10 mg PO HS [facility] Last Admin: 10/07/17 21:26 Dose: 10 mg Pantoprazole Sodium (Protonix Ec Tab) 40 mg PO DAILY [facility] Last Admin: 10/08/17 09:45 Dose: 40 mg Rosuvastatin Calcium (Crestor) 5 mg PO HS [facility] Last Admin: 10/07/17 21:26 Dose: 5 mg Saccharomyces Boulardii (Florastor) 250 mg PO BID [facility] Last Admin: 10/08/17 09:45 Dose: 250 mg Sevelamer Carbonate (Renvela) 0.8 gm GT TIDCC [facility] Last Admin: 10/08/17 09:00 Dose: 0.8 gm Sodium Bicarbonate (Sodium Bicarbonate Tab) 650 mg PO BID [facility] Last Admin: 10/08/17 09:45 Dose: 650 mg Tamsulosin HCl (Flomax) 0.4 mg PO DAILY [facility] Last Admin: 10/08/17 09:45 Dose: 0.4 mg Timolol Maleate (Timoptic 0.25% Ophth Soln) 1 drop OU Q12H [facility] Last Admin: 10/08/17 09:51 Dose: 1 drop Vitamin B Complex/Vit C/Folic Acid (Nephro-Fe) 1 tab PO 0800 [facility] Last Admin: 10/08/17 09:00 Dose: 1 tab Results - Vital Signs Recent Vital Signs: Last Vital Signs Temp 97.9 F 10/08/17 07:05 Pulse 67 10/08/17 07:05 Resp 18 10/08/17 07:05 BP 150/70 10/08/17 09:44 Pulse Ox 96 10/08/17 07:05 - Labs Result Diagrams: 10/08/17 07:15 10/08/17 07:15 Labs: Laboratory Results - last 24 hr 10/07/17 10/07/17 10/07/17 12:35 16:14 21:20 WBC RBC Hgb Hct MCV MCH MCHC RDW Plt Count MPV Neut % (Auto) Lymph % (Auto) [place] % (Auto) Eos % (Auto) Baso % (Auto) Neut # (Auto) Lymph # (Auto) [place] # (Auto) Eos # (Auto) Baso # (Auto) Sodium Potassium Chloride Carbon Dioxide Anion Gap BUN Creatinine Est GFR ( Amer) Est GFR (Non-Af Amer) POC Glucose (mg/dL) 175 H 204 H 112 H Random Glucose Calcium Phosphorus 10/08/17 10/08/17 10/08/17 06:31 06:46 07:15 WBC 15.9 H RBC 3.52 L Hgb 10.5 L Hct 30.5 L MCV 86.7 MCH 29.9 MCHC 34.5 RDW 14.8 H Plt Count 350 MPV 7.3 Neut % (Auto) 82.0 H Lymph % (Auto) 11.0 L [place] % (Auto) 5.9 Eos % (Auto) 0.6 Baso % (Auto) 0.5 Neut # (Auto) 13.0 H Lymph # (Auto) 1.8 [place] # (Auto) 0.9 H Eos # (Auto) 0.1 Baso # (Auto) 0.1 Sodium Potassium Chloride Carbon Dioxide Anion Gap BUN Creatinine Est GFR ( Amer) Est GFR (Non-Af Amer) POC Glucose (mg/dL) 51 L 58 L Random Glucose Calcium Phosphorus 10/08/17 10/08/17 10/08/17 07:15 07:25 11:14 WBC RBC Hgb Hct MCV MCH MCHC RDW Plt Count MPV Neut % (Auto) Lymph % (Auto) [place] % (Auto) Eos % (Auto) Baso % (Auto) Neut # (Auto) Lymph # (Auto) [place] # (Auto) Eos # (Auto) Baso # (Auto) Sodium 139 Potassium 4.5 Chloride 98 Carbon Dioxide 26 Anion Gap 19 BUN 81 H Creatinine 4.7 H Est GFR ( Amer) 14 Est GFR (Non-Af Amer) 12 POC Glucose (mg/dL) 205 H 236 H Random Glucose 67 L Calcium 8.4 L Phosphorus 5.1 H Assessment & Plan - Assessment and Plan (Free Text) Assessment: IMP: Hematuria'Renal failure Prostte cancer Dementia full note t/f YS - Date & Time Date: 10/08/17 Time: 11:20
--- NOTE | 2017-10-08 13:40 | CP.PCM.CON ---
History of Present Illness - History of Present Illness History of Present Illness: 87 year old male with a history of DM, HTN, elevated PSA with retroperitoneal lymphadenopathy and sclerotic bone lesions in 2017, admitted after being found to have a low hgb at the detention. recently in ICU for resp failure On IV antibiotics for sepsis / uti and possible pneumonia Patient was intubated without sedation. Past medical history: DM, HTN, elevated PSA with retroperitoneal lymphadenopathy and sclerotic bone lesions in 2017 Family history: Denies hematologic and oncologic problems PMD: Dr Rayo Allergies: NKDA Medications: See MAR Surgical Hx: Cystoscopy OIU/Balloon dilitation insertion of garcia, hernia repair , prostatectomy Social Hx: Former smoker quit 30 years ago; denies EtOH and illicit drug use. Lives at home alone, has two daughters Review of Systems - Review of Systems All systems: reviewed and no additional remarkable complaints except - Constitutional Constitutional: Anorexia - EENT Eyes: absent: As Per HPI, Blind Spots, Blurred Vision, Change in Vision, Decreased Night Vision, Diplopia, Discharge, Dry Eye, Exophthalmos, Floaters, Irritation, Itchy Eyes, Loss of Peripheral Vision, Pain, Photophobia, Requires Corrective Lenses, Sees Flashes, Spots in Vision, Tunnel Vision, Other Visual Disturbances, Loss of Vision, Other Ears: absent: As Per HPI, Decreased Hearing, Ear Discharge, Ear Pain, Tinnitus, Abnormal Hearing, Disequilibrium, Dizziness, Other Nose/Mouth/Throat: absent: As Per HPI, Epistaxis, Nasal Congestion, Nasal Discharge, Nasal Obstruction, Nasal Trauma, Nose Pain, Post Nasal Drip, Sinus Pain, Sinus Pressure, Bleeding Gums, Change in Voice, Dental Pain, Dry Mouth, Dysphagia, Halitosis, Hoarsness, Lip Swelling, Mouth Lesions, Mouth Pain, Odynophagia, Sore Throat, Throat Swelling, Tongue Swelling, Facial Pain, Neck Pain, Neck Mass, Other - Cardiovascular Cardiovascular: As Per HPI - Respiratory Respiratory: As Per HPI, Cough, Dyspnea. absent: Hemoptysis - Gastrointestinal Gastrointestinal: absent: As Per HPI, Abdominal Pain, Belching, Bloating, Change in Bowel Habits, Change in Stool Character, Coffee Ground Emesis, Constipation, Cramping, Diarrhea, Dyspepsia, Dysphagia, Early Satiety, Excessive Flatus, Fecal Incontinence, Heartburn, Hematemesis, Hematochezia, Loose Stools, Melena, Nausea, Odynophagia, Temesmus, Vomiting, Other - Genitourinary Genitourinary: As Per HPI - Musculoskeletal Musculoskeletal: As Per HPI - Integumentary Integumentary: absent: As Per HPI, Acne, Alopecia, Bleeding Lesions, Change in Hair, Change in Nails, Change in Pigmentation, Changing Lesions, Dry Skin, Erythema, Furuncle, Hirsutism, Lesions, New Lesions, Non-Healing Lesions, Photosensitivity, Pruritus, Rash, Skin Pain, Skin Ulcer, Sores, Striae, Swelling , Unusual Bruising, Wounds, Jaundice, Other - Neurological Neurological: As Per HPI - Psychiatric Psychiatric: absent: As Per HPI, Abnormal Sleep Pattern, Anhedonia, Anxiety, Auditory Hallucinations, Behavioral Changes, Change in Appetite, Change in Libido, Confusion, Depression, Difficulty Concentrating, Hallucinations, Homicidal Ideation, Hopelessness, Irritability, Memory Loss, Mood Swings, Panic Attacks, Paranoia, Suicidal Ideation, Visual Hallucinations, Tactile Hallucinations, Other - Endocrine Endocrine: absent: As Per HPI, Change in Body Appearance, Change in Libido, Cold Intolorance, Deepening of Voice, Excessive Sweating, Fatigue, Flushing, Heat Intolorance, Increase in Ring/Shoe/Hat Size, Palpitations, Polydipsia, Polyphagia, Polyuria, Other - Hematologic/Lymphatic Hematologic: absent: As Per HPI, Easy Bleeding, Easy Bruising, Lymphadenopathy, Other Past Patient History - Infectious Disease Hx of Infectious Diseases: None - Past Medical History & Family History Past Medical History?: Yes - Past Social History Smoking Status: Never Smoked - CARDIAC Hx Hypertension: Yes - PULMONARY Hx Respiratory Disorders: No - NEUROLOGICAL Hx Neurological Disorder: No - HEENT Hx HEENT Problems: No - RENAL Hx Chronic Kidney Disease: No - ENDOCRINE/METABOLIC Hx Diabetes Mellitus Type 2: Yes - HEMATOLOGICAL/ONCOLOGICAL Hx Anemia: Yes - INTEGUMENTARY Hx Dermatological Problems: No - MUSCULOSKELETAL/RHEUMATOLOGICAL Hx Arthritis: Yes - GASTROINTESTINAL Hx Gastrointestinal Disorders: Yes Hx Gastroesophageal Reflux: Yes - GENITOURINARY/GYNECOLOGICAL Hx Prostate Problems: Yes - PSYCHIATRIC Hx Substance Use: No - SURGICAL HISTORY Hx Surgeries: Yes Other/Comment: Prostate - ANESTHESIA Hx Anesthesia: No Hx Anesthesia Reactions: No Hx Malignant Hyperthermia: No Meds Allergies/Adverse Reactions: Allergies Allergy/AdvReac Type Severity Reaction Status Date / Time No Known Allergies Allergy Verified 09/30/17 00:20 - Medications Medications: Current Medications Albuterol/Ipratropium (Duoneb 3 Mg/0.5 Mg (3 Ml) Ud) 3 ml INH RQ6 [facility] Last Admin: 10/08/17 13:10 Dose: 3 ml Aspirin (Aspirin Chewable) 81 mg PO DAILY [facility] Last Admin: 10/07/17 09:37 Dose: 81 mg Carvedilol (Coreg) 3.125 mg PO BID [facility] Last Admin: 10/08/17 09:45 Dose: 3.125 mg Dorzolamide HCl (Trusopt) 0 ml OU BID [facility] Last Admin: 10/08/17 09:48 Dose: 1 drop Epoetin Jacob (Procrit) 10,000 unit SC MWF [facility] Last Admin: 10/08/17 09:42 Dose: 10,000 unit Ergocalciferol (Drisdol 50,000 Intl Units Cap) 1 cap PO Q7D [facility] Last Admin: 10/02/17 10:45 Dose: 1 cap Ferrous Gluconate (Fergon) 324 mg PO TID [facility] Last Admin: 10/08/17 13:13 Dose: 324 mg Furosemide (Lasix) 40 mg PO DAILY [facility] Last Admin: 10/08/17 09:44 Dose: 40 mg Guaifenesin (Robitussin) 100 mg PO Q4H PRN PRN Reason: Cough Last Admin: 10/08/17 10:46 Dose: 100 mg Piperacillin Sod/Tazobactam Sod (Zosyn 2.25 Gm Iv Premix) 2.25 gm in 50 mls @ 100 mls/hr IVPB Q6H [facility] PRN Reason: Protocol Last Admin: 10/08/17 10:03 Dose: 100 mls/hr Insulin Aspart (Novolog) 0 unit SC ACHS [facility] PRN Reason: Protocol Last Admin: 10/08/17 12:30 Dose: 4 unit Insulin Glargine (Lantus) 10 unit SC HS [facility] Last Admin: 10/07/17 21:27 Dose: 10 units Latanoprost (Xalatan Opht) 1 ml OS HS [facility] Last Admin: 10/07/17 21:25 Dose: 1 ml Magnesium Oxide (Mag-Ox) 400 mg PO BID [facility] Last Admin: 10/08/17 09:44 Dose: 400 mg Montelukast Sodium (Singulair) 10 mg PO HS [facility] Last Admin: 10/07/17 21:26 Dose: 10 mg Pantoprazole Sodium (Protonix Ec Tab) 40 mg PO DAILY [facility] Last Admin: 10/08/17 09:45 Dose: 40 mg Rosuvastatin Calcium (Crestor) 5 mg PO HS [facility] Last Admin: 10/07/17 21:26 Dose: 5 mg Saccharomyces Boulardii (Florastor) 250 mg PO BID [facility] Last Admin: 10/08/17 09:45 Dose: 250 mg Sevelamer Carbonate (Renvela) 0.8 gm GT TIDCC [facility] Last Admin: 10/08/17 13:00 Dose: 0.8 gm Sodium Bicarbonate (Sodium Bicarbonate Tab) 650 mg PO BID [facility] Last Admin: 10/08/17 09:45 Dose: 650 mg Tamsulosin HCl (Flomax) 0.4 mg PO DAILY [facility] Last Admin: 10/08/17 09:45 Dose: 0.4 mg Timolol Maleate (Timoptic 0.25% Ophth Soln) 1 drop OU Q12H [facility] Last Admin: 10/08/17 09:51 Dose: 1 drop Vitamin B Complex/Vit C/Folic Acid (Nephro-Fe) 1 tab PO 0800 [facility] Last Admin: 10/08/17 09:00 Dose: 1 tab Physical Exam - Constitutional Appears: Confused, Cachectic, Chronically Ill - Head Exam Head Exam: ATRAUMATIC, NORMAL INSPECTION, NORMOCEPHALIC - Eye Exam Eye Exam: PERRL. absent: Scleral icterus - ENT Exam ENT Exam: Mucous Membranes Dry, Normal External Ear Exam - Neck Exam Neck exam: Negative for: Lymphadenopathy - Respiratory Exam Respiratory Exam: Decreased Breath Sounds - Cardiovascular Exam Cardiovascular Exam: REGULAR RHYTHM - GI/Abdominal Exam GI & Abdominal Exam: Diminished Bowel Sounds, Soft. absent: Tenderness - Rectal Exam Rectal Exam: Deferred - Exam Exam: NORMAL INSPECTION - Extremities Exam Extremities exam: Negative for: pedal edema - Back Exam Back exam: absent: CVA tenderness (L), CVA tenderness (R), paraspinal tenderness - Neurological Exam Neurological exam: Alert, Altered, CN II-XII Intact - Psychiatric Exam Psychiatric exam: Depressed - Skin Skin Exam: Dry Results - Vital Signs Recent Vital Signs: Last Vital Signs Temp 97.9 F 10/08/17 07:05 Pulse 67 10/08/17 07:05 Resp 18 10/08/17 07:05 BP 150/70 10/08/17 09:44 Pulse Ox 96 10/08/17 07:05 - Labs Result Diagrams: 10/08/17 07:15 10/08/17 07:15 Labs: Laboratory Results - last 24 hr 10/07/17 10/07/17 10/08/17 16:14 21:20 06:31 WBC RBC Hgb Hct MCV MCH MCHC RDW Plt Count MPV Neut % (Auto) Lymph % (Auto) [place] % (Auto) Eos % (Auto) Baso % (Auto) Neut # (Auto) Lymph # (Auto) [place] # (Auto) Eos # (Auto) Baso # (Auto) Sodium Potassium Chloride Carbon Dioxide Anion Gap BUN Creatinine Est GFR ( Amer) Est GFR (Non-Af Amer) POC Glucose (mg/dL) 204 H 112 H 51 L Random Glucose Calcium Phosphorus 10/08/17 10/08/17 10/08/17 06:46 07:15 07:15 WBC 15.9 H RBC 3.52 L Hgb 10.5 L Hct 30.5 L MCV 86.7 MCH 29.9 MCHC 34.5 RDW 14.8 H Plt Count 350 MPV 7.3 Neut % (Auto) 82.0 H Lymph % (Auto) 11.0 L [place] % (Auto) 5.9 Eos % (Auto) 0.6 Baso % (Auto) 0.5 Neut # (Auto) 13.0 H Lymph # (Auto) 1.8 [place] # (Auto) 0.9 H Eos # (Auto) 0.1 Baso # (Auto) 0.1 Sodium 139 Potassium 4.5 Chloride 98 Carbon Dioxide 26 Anion Gap 19 BUN 81 H Creatinine 4.7 H Est GFR ( Amer) 14 Est GFR (Non-Af Amer) 12 POC Glucose (mg/dL) 58 L Random Glucose 67 L Calcium 8.4 L Phosphorus 5.1 H 10/08/17 10/08/17 07:25 11:14 WBC RBC Hgb Hct MCV MCH MCHC RDW Plt Count MPV Neut % (Auto) Lymph % (Auto) [place] % (Auto) Eos % (Auto) Baso % (Auto) Neut # (Auto) Lymph # (Auto) [place] # (Auto) Eos # (Auto) Baso # (Auto) Sodium Potassium Chloride Carbon Dioxide Anion Gap BUN Creatinine Est GFR ( Amer) Est GFR (Non-Af Amer) POC Glucose (mg/dL) 205 H 236 H Random Glucose Calcium Phosphorus Assessment & Plan (1) Altered mental status Status: Acute (2) Anemia Status: Acute (3) Renal insufficiency Status: Acute (4) Respiratory failure with hypoxia and hypercapnia Status: Acute (5) SHANNAN (acute kidney injury) Status: Acute (6) Chronic anemia Status: Acute (7) Chronic renal insufficiency Status: Acute (8) Diabetes mellitus Status: Acute (9) Elevated PSA Status: Acute - Assessment and Plan (Free Text) Assessment: add cefepime await repeat cultures
--- NOTE | 2017-10-08 14:57 | CP.PCM.PN ---
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 fluid overload hx of DM, HTN Vit D def and mild hyperphosphatemia Plan No acute need for renal replacement therapy at this time. Maintain hemodynamics stable, avoid hypotension, Patient not on ACEI/ARB due to SHANNAN Monitor Input/Output, daily weights and renal function with basic metabolic panel continue with iron supplements, MVI and Flomax 0.4 mg once a day supplement with weekly vit D. PTH level 163 in target range hence d/c calcitriol appreciate Heme evaluation Anemia management as per heme/onc. pt started on epogen Bladder scan done 10/06/17>>600 mL, pt with obstructive uropathy, need indwelling garcia until definite treatment by hence d/w RN to re-insert garcia catheter. and ID following Dose meds/antibiotics for reduced GFR. Avoid fleets enema/magnesium based laxatives. Avoid nephrotoxins/NSAIDs/ iodinated contrast (unless needed emergently) Glycemic control Further work up/management as per primary team Thanks for allowing me to participate in care of your patient. Will follow patient with you. Please call if any Qs. 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 pt seen by heme/onc. Denies OTC/herbal meds or NSAIDs No recent iodinated contrast exposure. No obvious episodes of low BP pt was seen in office recently ~ 2 weeks ago when his serum cr 2.3 and started on epogen for anemia and lasix for edema. pt intubated 10/02/17 evening for respi failure and transferred to MICU ROS: pt feels same. denies CP/SOB. c/o cough Physical Examination: General Appearance: comfortable, in no respiratory distress,. coperative Vitals reviewed and noted as below Head; Atraumatic, normocephalic ENT: normal oral mucosa no thrush/rash or ulcer. EYES: Pupils are equal, round and reactive to light accommodation. Eye muscles and extraocular movement intact. Sclera is anicteric. Neck; supple no lymphadenopathy, no thyromegaly or bruit Lungs: normal respiratory rate/effort. Breath sounds bilateral with basal rales Heart: Normal rate. s1s2 normal. No rub or gallop. Extremities: no edema. No varicose veins Neurological: Patient is awake alert follow commands, no focal deficit. Skin: Warm and dry. Normal turgor. No rash. Palpitation: Normal elasticity for age Abdomen: Abdomen is soft. Bowel sounds +. There is no abdominal tenderness, no guarding/rigidity no organomegaly Psych: limited insight. normal affect MSK: no joint tenderness or swelling. Digits and nails normal, no deformity : kidney not palpable bladder not distended. has indwelling garcia draining hemorrhagic urine Labs/imaging reviewed. Past medical history, past surgical history, family history, social history, allergy reviewed and noted as below Family hx: no hx of CKD. Rest non-contributory Renal sonogram severe bilateral hydronephrosis Urine protein creatinine ratio 2 gram Iron saturation 7% ferritin 198 Objective - Vital Signs/Intake and Output Vital Signs (last 24 hours): Temp Pulse Resp BP Pulse Ox 97.9 F 67 18 150/70 96 10/08/17 07:05 10/08/17 07:05 10/08/17 07:05 10/08/17 09:44 10/08/17 07:05 Intake and Output: 10/08/17 10/08/17 06:59 18:59 Intake Total 672 Output Total 1200 Balance -528 - Medications Medications: Current Medications Albuterol/Ipratropium (Duoneb 3 Mg/0.5 Mg (3 Ml) Ud) 3 ml INH RQ6 [facility] Last Admin: 10/08/17 13:10 Dose: 3 ml Aspirin (Aspirin Chewable) 81 mg PO DAILY [facility] Last Admin: 10/07/17 09:37 Dose: 81 mg Carvedilol (Coreg) 3.125 mg PO BID [facility] Last Admin: 10/08/17 09:45 Dose: 3.125 mg Dorzolamide HCl (Trusopt) 0 ml OU BID [facility] Last Admin: 10/08/17 09:48 Dose: 1 drop Epoetin Jacob (Procrit) 10,000 unit SC MWF [facility] Last Admin: 10/08/17 09:42 Dose: 10,000 unit Ergocalciferol (Drisdol 50,000 Intl Units Cap) 1 cap PO Q7D [facility] Last Admin: 10/02/17 10:45 Dose: 1 cap Ferrous Gluconate (Fergon) 324 mg PO TID [facility] Last Admin: 10/08/17 13:13 Dose: 324 mg Furosemide (Lasix) 40 mg PO DAILY [facility] Last Admin: 10/08/17 09:44 Dose: 40 mg Guaifenesin (Robitussin) 100 mg PO Q4H PRN PRN Reason: Cough Last Admin: 10/08/17 10:46 Dose: 100 mg Piperacillin Sod/Tazobactam Sod (Zosyn 2.25 Gm Iv Premix) 2.25 gm in 50 mls @ 100 mls/hr IVPB Q6H [facility] PRN Reason: Protocol Insulin Aspart (Novolog) 0 unit SC [facility] PRN Reason: Protocol Last Admin: 10/08/17 12:30 Dose: 4 unit Insulin Glargine (Lantus) 10 unit SC HS [facility] Last Admin: 10/07/17 21:27 Dose: 10 units Latanoprost (Xalatan Opht) 1 ml OS HS [facility] Last Admin: 10/07/17 21:25 Dose: 1 ml Magnesium Oxide (Mag-Ox) 400 mg PO BID [facility] Last Admin: 10/08/17 09:44 Dose: 400 mg Montelukast Sodium (Singulair) 10 mg PO HS [facility] Last Admin: 10/07/17 21:26 Dose: 10 mg Pantoprazole Sodium (Protonix Ec Tab) 40 mg PO DAILY [facility] Last Admin: 10/08/17 09:45 Dose: 40 mg Rosuvastatin Calcium (Crestor) 5 mg PO HS [facility] Last Admin: 10/07/17 21:26 Dose: 5 mg Saccharomyces Boulardii (Florastor) 250 mg PO BID [facility] Last Admin: 10/08/17 09:45 Dose: 250 mg Sevelamer Carbonate (Renvela) 0.8 gm GT TIDCC [facility] Last Admin: 10/08/17 13:00 Dose: 0.8 gm Sodium Bicarbonate (Sodium Bicarbonate Tab) 650 mg PO BID [facility] Last Admin: 10/08/17 09:45 Dose: 650 mg Tamsulosin HCl (Flomax) 0.4 mg PO DAILY [facility] Last Admin: 10/08/17 09:45 Dose: 0.4 mg Timolol Maleate (Timoptic 0.25% Ophth Soln) 1 drop OU Q12H [facility] Last Admin: 10/08/17 09:51 Dose: 1 drop Vitamin B Complex/Vit C/Folic Acid (Nephro-Fe) 1 tab PO 0800 [facility] Last Admin: 10/08/17 09:00 Dose: 1 tab - Labs Labs: 10/08/17 07:15 10/08/17 07:15 PT 13.6 SECONDS (9.7-12.2) H 10/07/17 06:44 INR 1.2 10/07/17 06:44 APTT 30 SECONDS (21-34) 10/07/17 06:44
--- NOTE | 2017-10-08 15:13 | CP.PCM.PN ---
Subjective - Date & Time of Evaluation Date of Evaluation: 10/08/17 Time of Evaluation: 07:40 - Subjective Subjective: clinically same Objective - Vital Signs/Intake and Output Vital Signs (last 24 hours): Temp Pulse Resp BP Pulse Ox 97.9 F 67 18 150/70 96 10/08/17 07:05 10/08/17 07:05 10/08/17 07:05 10/08/17 09:44 10/08/17 07:05 Intake and Output: 10/08/17 10/08/17 06:59 18:59 Intake Total 672 300 Output Total 1200 1000 Balance -528 -700 - Medications Medications: Current Medications Albuterol/Ipratropium (Duoneb 3 Mg/0.5 Mg (3 Ml) Ud) 3 ml INH RQ6 [facility] Last Admin: 10/08/17 13:10 Dose: 3 ml Aspirin (Aspirin Chewable) 81 mg PO DAILY [facility] Last Admin: 10/07/17 09:37 Dose: 81 mg Carvedilol (Coreg) 3.125 mg PO BID [facility] Last Admin: 10/08/17 09:45 Dose: 3.125 mg Dorzolamide HCl (Trusopt) 0 ml OU BID [facility] Last Admin: 10/08/17 09:48 Dose: 1 drop Epoetin Jacob (Procrit) 10,000 unit SC MWF [facility] Last Admin: 10/08/17 09:42 Dose: 10,000 unit Ergocalciferol (Drisdol 50,000 Intl Units Cap) 1 cap PO Q7D [facility] Last Admin: 10/02/17 10:45 Dose: 1 cap Ferrous Gluconate (Fergon) 324 mg PO TID [facility] Last Admin: 10/08/17 13:13 Dose: 324 mg Furosemide (Lasix) 40 mg PO DAILY [facility] Last Admin: 10/08/17 09:44 Dose: 40 mg Guaifenesin (Robitussin) 100 mg PO Q4H PRN PRN Reason: Cough Last Admin: 10/08/17 10:46 Dose: 100 mg Piperacillin Sod/Tazobactam Sod (Zosyn 2.25 Gm Iv Premix) 2.25 gm in 50 mls @ 100 mls/hr IVPB Q6H [facility] PRN Reason: Protocol Insulin Aspart (Novolog) 0 unit SC ACHS [facility] PRN Reason: Protocol Last Admin: 10/08/17 12:30 Dose: 4 unit Insulin Glargine (Lantus) 10 unit SC HS [facility] Last Admin: 10/07/17 21:27 Dose: 10 units Latanoprost (Xalatan Opht) 1 ml OS HS [facility] Last Admin: 10/07/17 21:25 Dose: 1 ml Magnesium Oxide (Mag-Ox) 400 mg PO BID [facility] Last Admin: 10/08/17 09:44 Dose: 400 mg Montelukast Sodium (Singulair) 10 mg PO HS [facility] Last Admin: 10/07/17 21:26 Dose: 10 mg Pantoprazole Sodium (Protonix Ec Tab) 40 mg PO DAILY [facility] Last Admin: 10/08/17 09:45 Dose: 40 mg Rosuvastatin Calcium (Crestor) 5 mg PO HS [facility] Last Admin: 10/07/17 21:26 Dose: 5 mg Saccharomyces Boulardii (Florastor) 250 mg PO BID [facility] Last Admin: 10/08/17 09:45 Dose: 250 mg Sevelamer Carbonate (Renvela) 0.8 gm GT TIDCC [facility] Last Admin: 10/08/17 13:00 Dose: 0.8 gm Sodium Bicarbonate (Sodium Bicarbonate Tab) 650 mg PO BID [facility] Last Admin: 10/08/17 09:45 Dose: 650 mg Tamsulosin HCl (Flomax) 0.4 mg PO DAILY [facility] Last Admin: 10/08/17 09:45 Dose: 0.4 mg Timolol Maleate (Timoptic 0.25% Oph Soln) 1 drop OU Q12H [facility] Last Admin: 10/08/17 09:51 Dose: 1 drop Vitamin B Complex/Vit C/Folic Acid (Nephro-Fe) 1 tab PO 0800 [facility] Last Admin: 10/08/17 09:00 Dose: 1 tab - Labs Labs: 10/08/17 07:15 10/08/17 07:15 PT 13.6 SECONDS (9.7-12.2) H 10/07/17 06:44 INR 1.2 10/07/17 06:44 APTT 30 SECONDS (21-34) 10/07/17 06:44 - Constitutional Appears: Well - Head Exam Head Exam: ATRAUMATIC, NORMAL INSPECTION, NORMOCEPHALIC - Eye Exam Eye Exam: EOMI, Normal appearance, PERRL Pupil Exam: NORMAL ACCOMODATION, PERRL - ENT Exam ENT Exam: Mucous Membranes Moist, Normal Exam - Neck Exam Neck Exam: Full ROM, Normal Inspection. absent: Lymphadenopathy - Respiratory Exam Respiratory Exam: Decreased Breath Sounds - Cardiovascular Exam Cardiovascular Exam: REGULAR RHYTHM, +S1, +S2 - GI/Abdominal Exam GI & Abdominal Exam: Soft, Diminished Bowel Sounds - Rectal Exam Rectal Exam: Deferred
[2017-10-08] MEDS ORDERED: Cefepime IV 1 gm in Dextrose 1 GM/50 ML BAG IVPB SCH (16:00)
[2017-10-08 18:17] LABS: TESTOSTERONE 310 ng/mL
[2017-10-08] MEDS: (Lantus) Insulin Glargine, Recombinant SC SCH (22:08)
[2017-10-08] MEDS: Latanoprost 2.5 ml Opht Soln OS SCH (22:09)
--- NOTE | 2017-10-08 22:21 | CP.PCM.PN ---
Subjective - Date & Time of Evaluation Date of Evaluation: 10/08/17 Time of Evaluation: 12:20 - Subjective Subjective: Has some cough, breathing better. Objective - Vital Signs/Intake and Output Vital Signs (last 24 hours): Temp Pulse Resp BP Pulse Ox 97.8 F 75 20 151/63 H 94 L 10/08/17 16:03 10/08/17 16:03 10/08/17 16:03 10/08/17 16:03 10/08/17 16:03 Intake and Output: 10/08/17 10/09/17 18:59 06:59 Intake Total 300 Output Total 1000 Balance -700 - Medications Medications: Current Medications Albuterol/Ipratropium (Duoneb 3 Mg/0.5 Mg (3 Ml) Ud) 3 ml INH RQ6 [facility] Last Admin: 10/08/17 19:26 Dose: 3 ml Aspirin (Aspirin Chewable) 81 mg PO DAILY [facility] Last Admin: 10/07/17 09:37 Dose: 81 mg Carvedilol (Coreg) 3.125 mg PO BID [facility] Last Admin: 10/08/17 17:39 Dose: 3.125 mg Dorzolamide HCl (Trusopt) 0 ml OU BID [facility] Last Admin: 10/08/17 17:40 Dose: 1 drop Epoetin Jacob (Procrit) 10,000 unit SC MWF [facility] Last Admin: 10/08/17 09:42 Dose: 10,000 unit Ergocalciferol (Drisdol 50,000 Intl Units Cap) 1 cap PO Q7D [facility] Last Admin: 10/02/17 10:45 Dose: 1 cap Ferrous Gluconate (Fergon) 324 mg PO TID [facility] Last Admin: 10/08/17 17:39 Dose: 324 mg Furosemide (Lasix) 40 mg PO DAILY [facility] Last Admin: 10/08/17 09:44 Dose: 40 mg Guaifenesin (Robitussin) 100 mg PO Q4H PRN PRN Reason: Cough Last Admin: 10/08/17 17:39 Dose: 100 mg Piperacillin Sod/Tazobactam Sod (Zosyn 2.25 Gm Iv Premix) 2.25 gm in 50 mls @ 100 mls/hr IVPB Q6H [facility] PRN Reason: Protocol Last Admin: 10/08/17 22:09 Dose: 100 mls/hr Insulin Aspart (Novolog) 0 unit SC [facility] PRN Reason: Protocol Last Admin: 10/08/17 21:56 Dose: Not Given Insulin Glargine (Lantus) 10 unit SC [facility] Last Admin: 10/08/17 22:08 Dose: 10 units Latanoprost (Xalatan Opht) 1 ml OS HS [facility] Last Admin: 10/08/17 22:09 Dose: 1 ml Magnesium Oxide (Mag-Ox) 400 mg PO BID [facility] Last Admin: 10/08/17 17:39 Dose: 400 mg Montelukast Sodium (Singulair) 10 mg PO HS [facility] Last Admin: 10/08/17 22:08 Dose: 10 mg Pantoprazole Sodium (Protonix Ec Tab) 40 mg PO DAILY [facility] Last Admin: 10/08/17 09:45 Dose: 40 mg Rosuvastatin Calcium (Crestor) 5 mg PO HS [facility] Last Admin: 10/08/17 22:08 Dose: 5 mg Saccharomyces Boulardii (Florastor) 250 mg PO BID [facility] Last Admin: 10/08/17 17:39 Dose: 250 mg Sevelamer Carbonate (Renvela) 0.8 gm GT TIDCC [facility] Last Admin: 10/08/17 17:39 Dose: 0.8 gm Sodium Bicarbonate (Sodium Bicarbonate Tab) 650 mg PO BID [facility] Last Admin: 10/08/17 17:39 Dose: 650 mg Tamsulosin HCl (Flomax) 0.4 mg PO DAILY [facility] Last Admin: 10/08/17 09:45 Dose: 0.4 mg Timolol Maleate (Timoptic 0.25% Oph Soln) 1 drop OU Q12H [facility] Last Admin: 10/08/17 22:09 Dose: 1 drop Vitamin B Complex/Vit C/Folic Acid (Nephro-Fe) 1 tab PO 0800 [facility] Last Admin: 10/08/17 09:00 Dose: 1 tab - Labs Labs: 10/08/17 07:15 10/08/17 07:15 PT 13.6 SECONDS (9.7-12.2) H 10/07/17 06:44 INR 1.2 10/07/17 06:44 APTT 30 SECONDS (21-34) 10/07/17 06:44 - Head Exam Head Exam: ATRAUMATIC - Eye Exam Eye Exam: Normal appearance - ENT Exam ENT Exam: Mucous Membranes Dry - Respiratory Exam Respiratory Exam: NORMAL BREATHING PATTERN - Cardiovascular Exam Cardiovascular Exam: +S1, +S2 - GI/Abdominal Exam GI & Abdominal Exam: Normal Bowel Sounds Assessment and Plan (1) Anemia Assessment & Plan: anemia of CKD and chronic disease; okay to use Procrit despite likely prostate cancer imaging suggestive on bone metastasis; likely contributing to anemia transfusion support PRN f/u FOBT Status: Acute (2) Elevated PSA Assessment & Plan: 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
[2017-10-09] MEDS: Albuterol-Ipratrop 3 mg / 0.5 (3 ml) UD INH SCH ×4 (02:32→20:27)
[2017-10-09] MEDS: Piperacill/Tazo 2.25gm in Dex 2.25 GM/50 ML BAG IVPB SCH ×4 (04:00→22:15)
[2017-10-09 07:23] LABS: MEAN CELL VOLUME 86.5 fL (80.0-94.0); MEAN CORPUSCULAR HEMOGLOBIN 29.5 pg (27.0-31.0); MEAN CORPUSCULAR HGB CONC 34.2 g/dL (33.0-37.0); MEAN PLATELET VOLUME 7.3 fL (7.2-11.7); RBC 3.04 Mil/uL (4.40-5.90); RED CELL DISTRIBUTION WIDTH 14.7 % (11.5-14.5); WHITE BLOOD COUNT 14.2 K/uL (4.8-10.8)
[2017-10-09] MEDS: (Novolog) Insulin Aspart, Recombinant 100 u/ml 10 ml vial SC SCH ×5 (08:23→22:11)
[2017-10-09] MEDS: Multivitamin Vitamin B Complex (Nephro-Vite) Tab PO SCH (08:23)
[2017-10-09] MEDS: Sevelamer Carb 0.8 gm/Packet GT SCH ×3 (08:23→17:29)
[2017-10-09] MEDS: Timolol 0.25% Ophth SOLN OU SCH ×2 (09:39→22:16)
[2017-10-09] MEDS: Saccharomyces Boulardi 250 mg Cap PO SCH ×2 (09:40→17:29)
[2017-10-09] MEDS: Magnesium Oxide 400 mg Tab UD PO SCH ×2 (09:40→17:27)
[2017-10-09] MEDS: Pantoprazole 40 mg EC Tab PO SCH (09:40)
[2017-10-09] MEDS: Ergocalciferol 50,000 Intl Units Cap PO SCH (09:47)
[2017-10-09] MEDS: Dorzolamide 2% Opht Sol 10ml OU SCH ×2 (09:47→17:28)
--- NOTE | 2017-10-09 10:37 | CON ---
DATE: 10/08/2017 REQUESTING PHYSICIAN: Travis Alcala MD REASON FOR CONSULTATION: Hematuria. HISTORY OF PRESENT ILLNESS: The patient is an 87-year-old male with hematuria. The patient is in otherwise fair health. The patient was admitted to the hospital on 09/30/2017. At that time, the patient had a Nair catheter inserted. The patient had subsequently had catheter removed. He developed urinary retention and required reinsertion of Nair catheter. Catheter was reinserted 2 days ago. The patient now has hematuria. He is reported to have hematuria since yesterday. The patient reports that he usually urinates with good urinary stream and good control. He reports no history of previous hematuria. No history of urolithiasis. The patient is unaware of the history of prostate cancer. However, there is a diagnosis of prostate cancer noted in the review of the medical record. The patient is aware that he is in [facility]. He is not oriented to the year. He is oriented to his identity. The patient reports occasional abdominal pain. No flank pain. No nausea or vomiting. The patient has a history of renal failure. On admission, the patient had renal failure. Creatinine on admission is 4.2. During this admission, the creatinine has increased to 4.3. BUN on admission 60, now BUN is 88. The patient was also noted to have abnormal liver function tests upon my review of the lab data. Also noted is severe anemia. PHYSICAL EXAMINATION: GENERAL: The patient is a well-developed, well-nourished elderly male. The patient is awake and alert. ABDOMEN: Soft, nontender, mildly protuberant. Nondistended. No mass or organomegaly. BACK: No CVA tenderness. GENITALIA: Without inflammation. There is moderate hematuria via the Nair catheter. Scrotal contents without inflammation. Testes descended bilaterally. RECTAL: Normal sphincter tone. Prostate is enlarged, greater than 40-50 g in size. Prostate demonstrates some asymmetry and marked induration and nodularity. LABORATORY DATA As reviewed and as discussed above. IMPRESSION: Hematuria. Differential diagnosis for hematuria includes infection, neoplasia, urolithiasis. Also possible is hematuria secondary to catheterization. According to the nursing staff, the hematuria developed only after the catheter was inserted. At first, I suspected that the catheter may not have been properly placed within the bladder. I adjusted the catheter position. I irrigated the catheter. The catheter is in proper position and irrigates well. Abnormal prostate examination suggests prostate carcinoma. The details of the history of prostate carcinoma are not known to me. The other problem the patient has is his urinary retention requiring catheterization. Urinary retention may be due to bladder outlet obstruction and/or detrusor muscle hypofunction. PLAN/RECOMMENDATIONS: Nair catheter indwelling. Catheter irrigation as needed. Serum PSA. Urine culture. Further therapy to follow. The patient will require cystoscopy. The patient may require hormonal therapy to treat prostate carcinoma. Staging evaluation would be helpful as well. I ordered a serum testosterone as well as a serum PSA. Further therapy to follow according to the patient's clinical course. Thank you for recommending the patient for urology consultation. Xochitl Wesley MD cc: Travis Alcala MD
--- NOTE | 2017-10-09 13:59 | CP.PCM.PN ---
Subjective - Date & Time of Evaluation Date of Evaluation: 10/09/17 Time of Evaluation: 13:00 - Subjective Subjective: feeling better Objective - Vital Signs/Intake and Output Vital Signs (last 24 hours): Temp Pulse Resp BP Pulse Ox 98.1 F 79 20 123/49 L 95 10/09/17 07:10 10/09/17 07:10 10/09/17 07:10 10/09/17 09:40 10/09/17 07:10 Intake and Output: 10/09/17 10/09/17 06:59 18:59 Intake Total 690 Output Total 1400 Balance -710 - Medications Medications: Current Medications Albuterol/Ipratropium (Duoneb 3 Mg/0.5 Mg (3 Ml) Ud) 3 ml INH RQ6 [facility] Last Admin: 10/09/17 13:10 Dose: 3 ml Aspirin (Aspirin Chewable) 81 mg PO DAILY [facility] Last Admin: 10/07/17 09:37 Dose: 81 mg Carvedilol (Coreg) 3.125 mg PO BID [facility] Last Admin: 10/09/17 09:40 Dose: 3.125 mg Dorzolamide HCl (Trusopt) 0 ml OU BID [facility] Last Admin: 10/09/17 09:47 Dose: 1 drop Epoetin Jacob (Procrit) 10,000 unit SC MWF [facility] Last Admin: 10/08/17 09:42 Dose: 10,000 unit Ergocalciferol (Drisdol 50,000 Intl Units Cap) 1 cap PO Q7D [facility] Last Admin: 10/09/17 09:47 Dose: 1 cap Ferrous Gluconate (Fergon) 324 mg PO TID [facility] Last Admin: 10/09/17 13:47 Dose: 324 mg Furosemide (Lasix) 40 mg PO DAILY [facility] Last Admin: 10/09/17 09:40 Dose: 40 mg Guaifenesin (Robitussin) 100 mg PO Q4H PRN PRN Reason: Cough Last Admin: 10/08/17 23:12 Dose: 100 mg Piperacillin Sod/Tazobactam Sod (Zosyn 2.25 Gm Iv Premix) 2.25 gm in 50 mls @ 100 mls/hr IVPB Q6H [facility] PRN Reason: Protocol Last Admin: 10/09/17 11:58 Dose: 100 mls/hr Insulin Aspart (Novolog) 0 unit SC ACHS [facility] PRN Reason: Protocol Last Admin: 10/09/17 12:14 Dose: 4 unit Insulin Glargine (Lantus) 10 unit SC [facility] Last Admin: 10/08/17 22:08 Dose: 10 units Latanoprost (Xalatan Opht) 1 ml OS HS [facility] Last Admin: 10/08/17 22:09 Dose: 1 ml Magnesium Oxide (Mag-Ox) 400 mg PO BID [facility] Last Admin: 10/09/17 09:40 Dose: 400 mg Montelukast Sodium (Singulair) 10 mg PO HS [facility] Last Admin: 10/08/17 22:08 Dose: 10 mg Pantoprazole Sodium (Protonix Ec Tab) 40 mg PO DAILY [facility] Last Admin: 10/09/17 09:40 Dose: 40 mg Rosuvastatin Calcium (Crestor) 5 mg PO [facility] Last Admin: 10/08/17 22:08 Dose: 5 mg Saccharomyces Boulardii (Florastor) 250 mg PO BID [facility] Last Admin: 10/09/17 09:40 Dose: 250 mg Sevelamer Carbonate (Renvela) 0.8 gm GT TIDCC [facility] Last Admin: 10/09/17 12:00 Dose: 0.8 gm Sodium Bicarbonate (Sodium Bicarbonate Tab) 650 mg PO BID [facility] Last Admin: 10/09/17 10:28 Dose: 650 mg Tamsulosin HCl (Flomax) 0.4 mg PO DAILY [facility] Last Admin: 10/09/17 09:47 Dose: 0.4 mg Timolol Maleate (Timoptic 0.25% Ophth Soln) 1 drop OU Q12H [facility] Last Admin: 10/09/17 09:39 Dose: 1 drop Vitamin B Complex/Vit C/Folic Acid (Nephro-Fe) 1 tab PO 0800 [facility] Last Admin: 10/09/17 08:23 Dose: 1 tab - Labs Labs: 10/09/17 07:13 10/09/17 07:13 PT 13.6 SECONDS (9.7-12.2) H 10/07/17 06:44 INR 1.2 10/07/17 06:44 APTT 30 SECONDS (21-34) 10/07/17 06:44 - Head Exam Head Exam: ATRAUMATIC - Eye Exam Eye Exam: Normal appearance - ENT Exam ENT Exam: Mucous Membranes Dry - Respiratory Exam Respiratory Exam: NORMAL BREATHING PATTERN - Cardiovascular Exam Cardiovascular Exam: +S1, +S2 - GI/Abdominal Exam GI & Abdominal Exam: Normal Bowel Sounds Assessment and Plan (1) Anemia Assessment & Plan: anemia of CKD and chronic disease; okay to use Procrit despite likely prostate cancer imaging suggestive on bone metastasis; likely contributing to anemia transfusion support PRN Status: Acute (2) Elevated PSA Assessment & Plan: 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
--- NOTE | 2017-10-09 14:29 | CP.PCM.PN ---
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 fluid overload hx of DM, HTN Vit D def and mild hyperphosphatemia Plan No acute need for renal replacement therapy at this time. Maintain hemodynamics stable, avoid hypotension, Patient not on ACEI/ARB due to SHANNAN Monitor Input/Output, daily weights and renal function with basic metabolic panel continue with iron supplements, MVI and Flomax 0.4 mg once a day supplement with weekly vit D. PTH level 163 in target range hence d/c calcitriol appreciate Heme evaluation Anemia management as per heme/onc. pt started on epogen Bladder scan done 10/06/17>>600 mL, pt with obstructive uropathy, need indwelling garcia until definite treatment by hence d/w RN to re-insert garcia catheter. and ID following Dose meds/antibiotics for reduced GFR. Avoid fleets enema/magnesium based laxatives. Avoid nephrotoxins/NSAIDs/ iodinated contrast (unless needed emergently) Glycemic control Further work up/management as per primary team Thanks for allowing me to participate in care of your patient. Will follow patient with you. Please call if any Qs. 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 pt seen by heme/onc. Denies OTC/herbal meds or NSAIDs No recent iodinated contrast exposure. No obvious episodes of low BP pt was seen in office recently ~ 2 weeks ago when his serum cr 2.3 and started on epogen for anemia and lasix for edema. pt intubated 10/02/17 evening for respi failure and transferred to MICU ROS: pt feels same. denies CP/SOB. c/o cough Physical Examination: General Appearance: comfortable, in no respiratory distress,. coperative Vitals reviewed and noted as below Head; Atraumatic, normocephalic ENT: normal oral mucosa no thrush/rash or ulcer. EYES: Pupils are equal, round and reactive to light accommodation. Eye muscles and extraocular movement intact. Sclera is anicteric. Neck; supple no lymphadenopathy, no thyromegaly or bruit Lungs: normal respiratory rate/effort. Breath sounds bilateral with basal rales/ crackle Heart: Normal rate. s1s2 normal. No rub or gallop. Extremities: no edema. No varicose veins Neurological: Patient is awake alert follow commands, no focal deficit. Skin: Warm and dry. Normal turgor. No rash. Palpitation: Normal elasticity for age Abdomen: Abdomen is soft. Bowel sounds +. There is no abdominal tenderness, no guarding/rigidity no organomegaly Psych: limited insight. normal affect MSK: no joint tenderness or swelling. Digits and nails normal, no deformity : kidney not palpable bladder not distended. has indwelling garcia draining hemorrhagic urine Labs/imaging reviewed. Past medical history, past surgical history, family history, social history, allergy reviewed and noted as below Family hx: no hx of CKD. Rest non-contributory Renal sonogram severe bilateral hydronephrosis Urine protein creatinine ratio 2 gram Iron saturation 7% ferritin 198 Objective - Vital Signs/Intake and Output Vital Signs (last 24 hours): Temp Pulse Resp BP Pulse Ox 98.1 F 79 20 123/49 L 95 10/09/17 07:10 10/09/17 07:10 10/09/17 07:10 10/09/17 09:40 10/09/17 07:10 Intake and Output: 10/09/17 10/09/17 06:59 18:59 Intake Total 690 Output Total 1400 600 Balance -710 -600 - Medications Medications: Current Medications Albuterol/Ipratropium (Duoneb 3 Mg/0.5 Mg (3 Ml) Ud) 3 ml INH RQ6 [facility] Last Admin: 10/09/17 13:10 Dose: 3 ml Aspirin (Aspirin Chewable) 81 mg PO DAILY [facility] Last Admin: 10/07/17 09:37 Dose: 81 mg Carvedilol (Coreg) 3.125 mg PO BID [facility] Last Admin: 10/09/17 09:40 Dose: 3.125 mg Dorzolamide HCl (Trusopt) 0 ml OU BID [facility] Last Admin: 10/09/17 09:47 Dose: 1 drop Epoetin Jacob (Procrit) 10,000 unit SC MWF [facility] Last Admin: 10/08/17 09:42 Dose: 10,000 unit Ergocalciferol (Drisdol 50,000 Intl Units Cap) 1 cap PO Q7D [facility] Last Admin: 10/09/17 09:47 Dose: 1 cap Ferrous Gluconate (Fergon) 324 mg PO TID [facility] Last Admin: 10/09/17 13:47 Dose: 324 mg Furosemide (Lasix) 40 mg PO DAILY [facility] Last Admin: 10/09/17 09:40 Dose: 40 mg Guaifenesin (Robitussin) 100 mg PO Q4H PRN PRN Reason: Cough Last Admin: 10/08/17 23:12 Dose: 100 mg Piperacillin Sod/Tazobactam Sod (Zosyn 2.25 Gm Iv Premix) 2.25 gm in 50 mls @ 100 mls/hr IVPB Q6H [facility] PRN Reason: Protocol Last Admin: 10/09/17 11:58 Dose: 100 mls/hr Insulin Aspart (Novolog) 0 unit SC ACHS [facility] PRN Reason: Protocol Last Admin: 10/09/17 12:14 Dose: 4 unit Insulin Glargine (Lantus) 10 unit SC [facility] Last Admin: 10/08/17 22:08 Dose: 10 units Latanoprost (Xalatan Opht) 1 ml OS HS [facility] Last Admin: 10/08/17 22:09 Dose: 1 ml Magnesium Oxide (Mag-Ox) 400 mg PO BID [facility] Last Admin: 10/09/17 09:40 Dose: 400 mg Montelukast Sodium (Singulair) 10 mg PO HS [facility] Last Admin: 10/08/17 22:08 Dose: 10 mg Pantoprazole Sodium (Protonix Ec Tab) 40 mg PO DAILY [facility] Last Admin: 10/09/17 09:40 Dose: 40 mg Rosuvastatin Calcium (Crestor) 5 mg PO [facility] Last Admin: 10/08/17 22:08 Dose: 5 mg Saccharomyces Boulardii (Florastor) 250 mg PO BID [facility] Last Admin: 10/09/17 09:40 Dose: 250 mg Sevelamer Carbonate (Renvela) 0.8 gm GT TIDCC [facility] Last Admin: 10/09/17 12:00 Dose: 0.8 gm Sodium Bicarbonate (Sodium Bicarbonate Tab) 650 mg PO BID [facility] Last Admin: 10/09/17 10:28 Dose: 650 mg Tamsulosin HCl (Flomax) 0.4 mg PO DAILY [facility] Last Admin: 10/09/17 09:47 Dose: 0.4 mg Timolol Maleate (Timoptic 0.25% Ophth Soln) 1 drop OU Q12H [facility] Last Admin: 10/09/17 09:39 Dose: 1 drop Vitamin B Complex/Vit C/Folic Acid (Nephro-Fe) 1 tab PO 0800 [facility] Last Admin: 10/09/17 08:23 Dose: 1 tab - Labs Labs: 10/09/17 07:13 10/09/17 07:13 PT 13.6 SECONDS (9.7-12.2) H 10/07/17 06:44 INR 1.2 10/07/17 06:44 APTT 30 SECONDS (21-34) 10/07/17 06:44
[2017-10-09] MEDS: guaiFENesin 100 mg/5 ml Syrup UD PO PRN ×2 (17:27→22:16)
--- NOTE | 2017-10-09 19:08 | CP.PCM.PN ---
Subjective - Date & Time of Evaluation Date of Evaluation: 10/16/17 Time of Evaluation: 08:00 - Subjective Subjective: clinically same Objective - Vital Signs/Intake and Output Vital Signs (last 24 hours): Temp Pulse Resp BP Pulse Ox 97.9 F 72 20 160/70 H 95 10/09/17 16:01 10/09/17 16:01 10/09/17 16:01 10/09/17 16:01 10/09/17 16:01 Intake and Output: 10/09/17 10/10/17 18:59 06:59 Output Total 600 Balance -600 - Medications Medications: Current Medications Albuterol/Ipratropium (Duoneb 3 Mg/0.5 Mg (3 Ml) Ud) 3 ml INH RQ6 [facility] Last Admin: 10/09/17 13:10 Dose: 3 ml Aspirin (Aspirin Chewable) 81 mg PO DAILY [facility] Last Admin: 10/07/17 09:37 Dose: 81 mg Carvedilol (Coreg) 3.125 mg PO BID [facility] Last Admin: 10/09/17 17:27 Dose: 3.125 mg Dorzolamide HCl (Trusopt) 0 ml OU BID [facility] Last Admin: 10/09/17 17:28 Dose: 1 drop Epoetin Jacob (Procrit) 10,000 unit SC MWF [facility] Last Admin: 10/08/17 09:42 Dose: 10,000 unit Ergocalciferol (Drisdol 50,000 Intl Units Cap) 1 cap PO Q7D [facility] Last Admin: 10/09/17 09:47 Dose: 1 cap Ferrous Gluconate (Fergon) 324 mg PO TID [facility] Last Admin: 10/09/17 17:29 Dose: 324 mg Furosemide (Lasix) 40 mg PO DAILY [facility] Last Admin: 10/09/17 09:40 Dose: 40 mg Guaifenesin (Robitussin) 100 mg PO Q4H PRN PRN Reason: Cough Last Admin: 10/09/17 17:27 Dose: 100 mg Piperacillin Sod/Tazobactam Sod (Zosyn 2.25 Gm Iv Premix) 2.25 gm in 50 mls @ 100 mls/hr IVPB Q6H [facility] PRN Reason: Protocol Last Admin: 10/09/17 17:28 Dose: 100 mls/hr Insulin Aspart (Novolog) 0 unit SC ACHS [facility] PRN Reason: Protocol Last Admin: 10/09/17 17:27 Dose: 2 unit Insulin Glargine (Lantus) 10 unit SC HS [facility] Last Admin: 10/08/17 22:08 Dose: 10 units Latanoprost (Xalatan Opht) 1 ml OS HS [facility] Last Admin: 10/08/17 22:09 Dose: 1 ml Magnesium Oxide (Mag-Ox) 400 mg PO BID [facility] Last Admin: 10/09/17 17:27 Dose: 400 mg Montelukast Sodium (Singulair) 10 mg PO HS [facility] Last Admin: 10/08/17 22:08 Dose: 10 mg Pantoprazole Sodium (Protonix Ec Tab) 40 mg PO DAILY [facility] Last Admin: 10/09/17 09:40 Dose: 40 mg Rosuvastatin Calcium (Crestor) 5 mg PO HS [facility] Last Admin: 10/08/17 22:08 Dose: 5 mg Saccharomyces Boulardii (Florastor) 250 mg PO BID [facility] Last Admin: 10/09/17 17:29 Dose: 250 mg Sevelamer Carbonate (Renvela) 0.8 gm GT TIDCC [facility] Last Admin: 10/09/17 17:29 Dose: 0.8 gm Sodium Bicarbonate (Sodium Bicarbonate Tab) 650 mg PO BID [facility] Last Admin: 10/09/17 17:27 Dose: 650 mg Tamsulosin HCl (Flomax) 0.4 mg PO DAILY [facility] Last Admin: 10/09/17 09:47 Dose: 0.4 mg Timolol Maleate (Timoptic 0.25% Oph Soln) 1 drop OU Q12H [facility] Last Admin: 10/09/17 09:39 Dose: 1 drop Vitamin B Complex/Vit C/Folic Acid (Nephro-Fe) 1 tab PO 0800 [facility] Last Admin: 10/09/17 08:23 Dose: 1 tab - Labs Labs: 10/09/17 07:13 10/09/17 07:13 PT 13.6 SECONDS (9.7-12.2) H 10/07/17 06:44 INR 1.2 10/07/17 06:44 APTT 30 SECONDS (21-34) 10/07/17 06:44 - Constitutional Appears: Well - Head Exam Head Exam: ATRAUMATIC, NORMAL INSPECTION, NORMOCEPHALIC - Eye Exam Eye Exam: EOMI, Normal appearance, PERRL Pupil Exam: NORMAL ACCOMODATION, PERRL - ENT Exam ENT Exam: Mucous Membranes Moist, Normal Exam - Neck Exam Neck Exam: Full ROM, Normal Inspection. absent: Lymphadenopathy - Respiratory Exam Respiratory Exam: Decreased Breath Sounds - Cardiovascular Exam Cardiovascular Exam: REGULAR RHYTHM, +S1, +S2 - GI/Abdominal Exam GI & Abdominal Exam: Soft, Diminished Bowel Sounds - Rectal Exam Rectal Exam: Deferred
--- NOTE | 2017-10-09 19:12 | CP.PCM.PN ---
Subjective - Date & Time of Evaluation Date of Evaluation: 10/09/17 Time of Evaluation: 08:00 - Subjective Subjective: improving on IV rx chart reviewed will renew IV rx Objective - Vital Signs/Intake and Output Vital Signs (last 24 hours): Temp Pulse Resp BP Pulse Ox 97.9 F 72 20 160/70 H 95 10/09/17 16:01 10/09/17 16:01 10/09/17 16:01 10/09/17 16:01 10/09/17 16:01 Intake and Output: 10/09/17 10/10/17 18:59 06:59 Output Total 600 Balance -600 - Medications Medications: Current Medications Albuterol/Ipratropium (Duoneb 3 Mg/0.5 Mg (3 Ml) Ud) 3 ml INH RQ6 [facility] Last Admin: 10/09/17 13:10 Dose: 3 ml Aspirin (Aspirin Chewable) 81 mg PO DAILY [facility] Last Admin: 10/07/17 09:37 Dose: 81 mg Carvedilol (Coreg) 3.125 mg PO BID [facility] Last Admin: 10/09/17 17:27 Dose: 3.125 mg Dorzolamide HCl (Trusopt) 0 ml OU BID [facility] Last Admin: 10/09/17 17:28 Dose: 1 drop Epoetin Jacob (Procrit) 10,000 unit SC MWF [facility] Last Admin: 10/08/17 09:42 Dose: 10,000 unit Ergocalciferol (Drisdol 50,000 Intl Units Cap) 1 cap PO Q7D [facility] Last Admin: 10/09/17 09:47 Dose: 1 cap Ferrous Gluconate (Fergon) 324 mg PO TID [facility] Last Admin: 10/09/17 17:29 Dose: 324 mg Furosemide (Lasix) 40 mg PO DAILY [facility] Last Admin: 10/09/17 09:40 Dose: 40 mg Guaifenesin (Robitussin) 100 mg PO Q4H PRN PRN Reason: Cough Last Admin: 10/09/17 17:27 Dose: 100 mg Piperacillin Sod/Tazobactam Sod (Zosyn 2.25 Gm Iv Premix) 2.25 gm in 50 mls @ 100 mls/hr IVPB Q6H [facility] PRN Reason: Protocol Last Admin: 10/09/17 17:28 Dose: 100 mls/hr Insulin Aspart (Novolog) 0 unit SC [facility] PRN Reason: Protocol Last Admin: 10/09/17 17:27 Dose: 2 unit Insulin Glargine (Lantus) 10 unit SC [facility] Last Admin: 10/08/17 22:08 Dose: 10 units Latanoprost (Xalatan Opht) 1 ml OS HS [facility] Last Admin: 10/08/17 22:09 Dose: 1 ml Magnesium Oxide (Mag-Ox) 400 mg PO BID [facility] Last Admin: 10/09/17 17:27 Dose: 400 mg Montelukast Sodium (Singulair) 10 mg PO HS [facility] Last Admin: 10/08/17 22:08 Dose: 10 mg Pantoprazole Sodium (Protonix Ec Tab) 40 mg PO DAILY [facility] Last Admin: 10/09/17 09:40 Dose: 40 mg Rosuvastatin Calcium (Crestor) 5 mg PO HS [facility] Last Admin: 10/08/17 22:08 Dose: 5 mg Saccharomyces Boulardii (Florastor) 250 mg PO BID [facility] Last Admin: 10/09/17 17:29 Dose: 250 mg Sevelamer Carbonate (Renvela) 0.8 gm GT TIDCC [facility] Last Admin: 10/09/17 17:29 Dose: 0.8 gm Sodium Bicarbonate (Sodium Bicarbonate Tab) 650 mg PO BID [facility] Last Admin: 10/09/17 17:27 Dose: 650 mg Tamsulosin HCl (Flomax) 0.4 mg PO DAILY [facility] Last Admin: 10/09/17 09:47 Dose: 0.4 mg Timolol Maleate (Timoptic 0.25% Oph Soln) 1 drop OU Q12H [facility] Last Admin: 10/09/17 09:39 Dose: 1 drop Vitamin B Complex/Vit C/Folic Acid (Nephro-Fe) 1 tab PO 0800 [facility] Last Admin: 10/09/17 08:23 Dose: 1 tab - Labs Labs: 10/09/17 07:13 10/09/17 07:13 PT 13.6 SECONDS (9.7-12.2) H 10/07/17 06:44 INR 1.2 10/07/17 06:44 APTT 30 SECONDS (21-34) 10/07/17 06:44 - Constitutional Appears: Non-toxic, Chronically Ill - Head Exam Head Exam: NORMOCEPHALIC - Eye Exam Eye Exam: PERRL - ENT Exam ENT Exam: Mucous Membranes Dry - Neck Exam Neck Exam: absent: Lymphadenopathy - Respiratory Exam Respiratory Exam: Decreased Breath Sounds - Cardiovascular Exam Cardiovascular Exam: REGULAR RHYTHM - GI/Abdominal Exam GI & Abdominal Exam: Distended - Rectal Exam Rectal Exam: Deferred - Exam Exam: NORMAL INSPECTION Assessment and Plan (1) Altered mental status Status: Acute (2) Anemia Status: Acute (3) Renal insufficiency Status: Acute (4) Respiratory failure with hypoxia and hypercapnia Status: Acute (5) SHANNAN (acute kidney injury) Status: Acute (6) Chronic anemia Status: Acute (7) Chronic renal insufficiency Status: Acute (8) Diabetes mellitus Status: Acute (9) Elevated PSA Status: Acute
[2017-10-09] MEDS: (Lantus) Insulin Glargine, Recombinant SC SCH (22:16)
[2017-10-09] MEDS: Latanoprost 2.5 ml Opht Soln OS SCH (22:16)
[2017-10-10] MEDS: Albuterol-Ipratrop 3 mg / 0.5 (3 ml) UD INH SCH ×4 (01:30→19:56)
[2017-10-10] MEDS: Piperacill/Tazo 2.25gm in Dex 2.25 GM/50 ML BAG IVPB SCH ×4 (04:52→22:00)
[2017-10-10] MEDS: (Novolog) Insulin Aspart, Recombinant 100 u/ml 10 ml vial SC SCH ×4 (07:37→22:01)
[2017-10-10 07:38] LABS: BASO # 0.1 K/uL (0.0-0.2); BASO % 0.7 % (0.0-2.0); EOS # 0.3 K/uL (0.0-0.7); LYMPH # 1.7 K/uL (1.0-4.3); LYMPH % 12.4 % (20.0-40.0); MEAN CELL VOLUME 86.5 fL (80.0-94.0); MEAN CORPUSCULAR HEMOGLOBIN 29.4 pg (27.0-31.0); MEAN PLATELET VOLUME 7.4 fL (7.2-11.7); MONO # 1.1 K/uL (0.0-0.8); MONO % 8.1 % (0.0-10.0); NEUT # 10.4 K/uL (1.8-7.0); NEUT % 76.8 % (50.0-75.0); RBC 3.07 Mil/uL (4.40-5.90); WHITE BLOOD COUNT 13.6 K/uL (4.8-10.8)
[2017-10-10 08:15] LABS: ALB/GLOB RATIO 0.8 (1.0-2.1); ALBUMIN 2.9 g/dL (3.5-5.0); CALCIUM 7.9 mg/dl (8.6-10.4)
[2017-10-10] MEDS: Dorzolamide 2% Opht Sol 10ml OU SCH ×2 (09:26→18:16)
[2017-10-10] MEDS: Epoetin Alfa 10,000 unit/ml Dialysis SC SCH (09:26)
[2017-10-10] MEDS: Multivitamin Vitamin B Complex (Nephro-Vite) Tab PO SCH (09:26)
[2017-10-10] MEDS: Magnesium Oxide 400 mg Tab UD PO SCH ×2 (09:26→18:17)
[2017-10-10] MEDS: guaiFENesin 100 mg/5 ml Syrup UD PO PRN (09:26)
[2017-10-10] MEDS: Saccharomyces Boulardi 250 mg Cap PO SCH ×2 (09:26→18:18)
[2017-10-10] MEDS: Sevelamer Carb 0.8 gm/Packet GT SCH ×3 (09:26→18:14)
[2017-10-10] MEDS: Pantoprazole 40 mg EC Tab PO SCH (09:26)
[2017-10-10] MEDS: Timolol 0.25% Ophth SOLN OU SCH ×2 (09:27→21:59)
--- NOTE | 2017-10-10 15:55 | CP.PCM.PN ---
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 fluid overload hx of DM, HTN Vit D def and mild hyperphosphatemia Plan No acute need for renal replacement therapy at this time. Maintain hemodynamics stable, avoid hypotension, Patient not on ACEI/ARB due to SHANNAN Monitor Input/Output, daily weights and renal function with basic metabolic panel continue with iron supplements, MVI and Flomax 0.4 mg once a day supplement with weekly vit D. PTH level 163 in target range hence d/c calcitriol appreciate Heme evaluation Anemia management as per heme/onc. pt started on epogen Bladder scan done 10/06/17>>600 mL, pt with obstructive uropathy, need indwelling garcia until definite treatment by hence d/w RN to re-insert garcia catheter. and ID following Dose meds/antibiotics for reduced GFR. Avoid fleets enema/magnesium based laxatives. Avoid nephrotoxins/NSAIDs/ iodinated contrast (unless needed emergently) Glycemic control Further work up/management as per primary team Thanks for allowing me to participate in care of your patient. Will follow patient with you. Please call if any Qs. 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 pt seen by heme/onc. Denies OTC/herbal meds or NSAIDs No recent iodinated contrast exposure. No obvious episodes of low BP pt was seen in office recently ~ 2 weeks ago when his serum cr 2.3 and started on epogen for anemia and lasix for edema. pt intubated 10/02/17 evening for respi failure and transferred to MICU ROS: pt feels same. denies CP/SOB. c/o cough Physical Examination: General Appearance: comfortable, in no respiratory distress,. coperative Vitals reviewed and noted as below Head; Atraumatic, normocephalic ENT: normal oral mucosa no thrush/rash or ulcer. EYES: Pupils are equal, round and reactive to light accommodation. Eye muscles and extraocular movement intact. Sclera is anicteric. Neck; supple no lymphadenopathy, no thyromegaly or bruit Lungs: normal respiratory rate/effort. Breath sounds bilateral with basal rales/ crackle Heart: Normal rate. s1s2 normal. No rub or gallop. Extremities: no edema. No varicose veins Neurological: Patient is awake alert follow commands, no focal deficit. Skin: Warm and dry. Normal turgor. No rash. Palpitation: Normal elasticity for age Abdomen: Abdomen is soft. Bowel sounds +. There is no abdominal tenderness, no guarding/rigidity no organomegaly Psych: limited insight. normal affect MSK: no joint tenderness or swelling. Digits and nails normal, no deformity : kidney not palpable bladder not distended. has indwelling garcia draining yellowish urine Labs/imaging reviewed. Past medical history, past surgical history, family history, social history, allergy reviewed and noted as below Family hx: no hx of CKD. Rest non-contributory Renal sonogram severe bilateral hydronephrosis Urine protein creatinine ratio 2 gram Iron saturation 7% ferritin 198 Objective - Vital Signs/Intake and Output Vital Signs (last 24 hours): Temp Pulse Resp BP Pulse Ox 98.2 F 74 20 142/70 96 10/10/17 07:05 10/10/17 07:05 10/10/17 07:05 10/10/17 09:27 10/10/17 07:05 Intake and Output: 10/10/17 10/10/17 06:59 18:59 Intake Total 650 480 Output Total 1100 1000 Balance -450 -520 - Medications Medications: Current Medications Albuterol/Ipratropium (Duoneb 3 Mg/0.5 Mg (3 Ml) Ud) 3 ml INH RQ6 [facility] Last Admin: 10/10/17 13:01 Dose: 3 ml Aspirin (Aspirin Chewable) 81 mg PO DAILY [facility] Last Admin: 10/07/17 09:37 Dose: 81 mg Carvedilol (Coreg) 3.125 mg PO BID [facility] Last Admin: 10/10/17 09:26 Dose: 3.125 mg Dorzolamide HCl (Trusopt) 0 ml OU BID [facility] Last Admin: 10/10/17 09:26 Dose: 1 drop Epoetin Jacob (Procrit) 10,000 unit SC MWF [facility] Last Admin: 10/10/17 09:26 Dose: 10,000 unit Ergocalciferol (Drisdol 50,000 Intl Units Cap) 1 cap PO Q7D [facility] Last Admin: 10/09/17 09:47 Dose: 1 cap Ferrous Gluconate (Fergon) 324 mg PO TID [facility] Last Admin: 10/10/17 13:29 Dose: 324 mg Furosemide (Lasix) 40 mg PO DAILY [facility] Last Admin: 10/10/17 09:27 Dose: 40 mg Guaifenesin (Robitussin) 100 mg PO Q4H PRN PRN Reason: Cough Last Admin: 10/10/17 09:26 Dose: 100 mg Piperacillin Sod/Tazobactam Sod (Zosyn 2.25 Gm Iv Premix) 2.25 gm in 50 mls @ 100 mls/hr IVPB Q6H [facility] PRN Reason: Protocol Last Admin: 10/10/17 11:34 Dose: 100 mls/hr Insulin Aspart (Novolog) 0 unit SC ACHS [facility] PRN Reason: Protocol Last Admin: 10/10/17 13:28 Dose: 6 unit Insulin Glargine (Lantus) 10 unit SC HS [facility] Last Admin: 10/09/17 22:16 Dose: 10 units Latanoprost (Xalatan Opht) 1 ml OS HS [facility] Last Admin: 10/09/17 22:16 Dose: 1 ml Magnesium Oxide (Mag-Ox) 400 mg PO BID [facility] Last Admin: 10/10/17 09:26 Dose: 400 mg Montelukast Sodium (Singulair) 10 mg PO HS [facility] Last Admin: 10/09/17 22:16 Dose: 10 mg Pantoprazole Sodium (Protonix Ec Tab) 40 mg PO DAILY [facility] Last Admin: 10/10/17 09:26 Dose: 40 mg Rosuvastatin Calcium (Crestor) 5 mg PO HS [facility] Last Admin: 10/09/17 22:16 Dose: 5 mg Saccharomyces Boulardii (Florastor) 250 mg PO BID [facility] Last Admin: 10/10/17 09:26 Dose: 250 mg Sevelamer Carbonate (Renvela) 0.8 gm GT TIDCC [facility] Last Admin: 10/10/17 11:34 Dose: 0.8 gm Sodium Bicarbonate (Sodium Bicarbonate Tab) 650 mg PO BID [facility] Last Admin: 10/10/17 09:26 Dose: 650 mg Tamsulosin HCl (Flomax) 0.4 mg PO DAILY [facility] Last Admin: 10/10/17 09:26 Dose: 0.4 mg Timolol Maleate (Timoptic 0.25% Oph Soln) 1 drop OU Q12H [facility] Last Admin: 10/10/17 09:27 Dose: 1 drop Vitamin B Complex/Vit C/Folic Acid (Nephro-Fe) 1 tab PO 0800 [facility] Last Admin: 10/10/17 09:26 Dose: 1 tab - Labs Labs: 10/10/17 07:25 10/10/17 07:25 PT 13.6 SECONDS (9.7-12.2) H 10/07/17 06:44 INR 1.2 10/07/17 06:44 APTT 30 SECONDS (21-34) 10/07/17 06:44
--- NOTE | 2017-10-10 16:55 | CP.PCM.PN ---
Subjective - Date & Time of Evaluation Date of Evaluation: 10/10/17 Time of Evaluation: 07:40 - Subjective Subjective: clinically same Objective - Vital Signs/Intake and Output Vital Signs (last 24 hours): Temp Pulse Resp BP Pulse Ox 98 F 69 20 127/64 96 10/10/17 16:36 10/10/17 16:36 10/10/17 16:36 10/10/17 16:36 10/10/17 16:36 Intake and Output: 10/10/17 10/10/17 06:59 18:59 Intake Total 650 480 Output Total 1100 1000 Balance -450 -520 - Medications Medications: Current Medications Albuterol/Ipratropium (Duoneb 3 Mg/0.5 Mg (3 Ml) Ud) 3 ml INH RQ6 [facility] Last Admin: 10/10/17 13:01 Dose: 3 ml Aspirin (Aspirin Chewable) 81 mg PO DAILY [facility] Last Admin: 10/07/17 09:37 Dose: 81 mg Carvedilol (Coreg) 3.125 mg PO BID [facility] Last Admin: 10/10/17 09:26 Dose: 3.125 mg Dorzolamide HCl (Trusopt) 0 ml OU BID [facility] Last Admin: 10/10/17 09:26 Dose: 1 drop Epoetin Jacob (Procrit) 10,000 unit SC MWF [facility] Last Admin: 10/10/17 09:26 Dose: 10,000 unit Ergocalciferol (Drisdol 50,000 Intl Units Cap) 1 cap PO Q7D [facility] Last Admin: 10/09/17 09:47 Dose: 1 cap Ferrous Gluconate (Fergon) 324 mg PO TID [facility] Last Admin: 10/10/17 13:29 Dose: 324 mg Furosemide (Lasix) 40 mg PO DAILY [facility] Last Admin: 10/10/17 09:27 Dose: 40 mg Guaifenesin (Robitussin) 100 mg PO Q4H PRN PRN Reason: Cough Last Admin: 10/10/17 09:26 Dose: 100 mg Piperacillin Sod/Tazobactam Sod (Zosyn 2.25 Gm Iv Premix) 2.25 gm in 50 mls @ 100 mls/hr IVPB Q6H [facility] PRN Reason: Protocol Last Admin: 10/10/17 11:34 Dose: 100 mls/hr Insulin Aspart (Novolog) 0 unit SC ACHS [facility] PRN Reason: Protocol Last Admin: 10/10/17 13:28 Dose: 6 unit Insulin Glargine (Lantus) 10 unit SC [facility] Last Admin: 10/09/17 22:16 Dose: 10 units Latanoprost (Xalatan Opht) 1 ml OS HS [facility] Last Admin: 10/09/17 22:16 Dose: 1 ml Magnesium Oxide (Mag-Ox) 400 mg PO BID [facility] Last Admin: 10/10/17 09:26 Dose: 400 mg Montelukast Sodium (Singulair) 10 mg PO [facility] Last Admin: 10/09/17 22:16 Dose: 10 mg Pantoprazole Sodium (Protonix Ec Tab) 40 mg PO DAILY [facility] Last Admin: 10/10/17 09:26 Dose: 40 mg Rosuvastatin Calcium (Crestor) 5 mg PO [facility] Last Admin: 10/09/17 22:16 Dose: 5 mg Saccharomyces Boulardii (Florastor) 250 mg PO BID [facility] Last Admin: 10/10/17 09:26 Dose: 250 mg Sevelamer Carbonate (Renvela) 0.8 gm GT TIDCC [facility] Last Admin: 10/10/17 11:34 Dose: 0.8 gm Sodium Bicarbonate (Sodium Bicarbonate Tab) 650 mg PO BID [facility] Last Admin: 10/10/17 09:26 Dose: 650 mg Tamsulosin HCl (Flomax) 0.4 mg PO DAILY [facility] Last Admin: 10/10/17 09:26 Dose: 0.4 mg Timolol Maleate (Timoptic 0.25% Oph Soln) 1 drop OU Q12H [facility] Last Admin: 10/10/17 09:27 Dose: 1 drop Vitamin B Complex/Vit C/Folic Acid (Nephro-Fe) 1 tab PO 0800 [facility] Last Admin: 10/10/17 09:26 Dose: 1 tab - Labs Labs: 10/10/17 07:25 10/10/17 07:25 PT 13.6 SECONDS (9.7-12.2) H 10/07/17 06:44 INR 1.2 10/07/17 06:44 APTT 30 SECONDS (21-34) 10/07/17 06:44 - Constitutional Appears: Well - Head Exam Head Exam: ATRAUMATIC, NORMAL INSPECTION, NORMOCEPHALIC - Eye Exam Eye Exam: EOMI, Normal appearance, PERRL Pupil Exam: NORMAL ACCOMODATION, PERRL - ENT Exam ENT Exam: Mucous Membranes Moist, Normal Exam - Neck Exam Neck Exam: Full ROM, Normal Inspection. absent: Lymphadenopathy - Respiratory Exam Respiratory Exam: Decreased Breath Sounds - Cardiovascular Exam Cardiovascular Exam: REGULAR RHYTHM, +S1, +S2 - GI/Abdominal Exam GI & Abdominal Exam: Soft, Diminished Bowel Sounds - Rectal Exam Rectal Exam: Deferred
--- NOTE | 2017-10-10 17:21 | PCM.URO ---
Urology Progress Note - General General: No Complaints, Tolerating Diet - Subjective Abdominal Pain: No Flank Pain: No Nausea: No Vomiting: No Dysuria: No Hematuria: No (hematuria resolved) Dsypnea: No Chest Pain: No Fever & Chills: No - Objective Lab Results Last 24 Hours: Laboratory Results - last 24 hr 10/09/17 10/10/17 10/10/17 21:37 06:08 07:25 WBC 13.6 H RBC 3.07 L Hgb 9.0 L Hct 26.5 L MCV 86.5 MCH 29.4 MCHC 34.0 RDW 15.0 H Plt Count 303 MPV 7.4 Neut % (Auto) 76.8 H Lymph % (Auto) 12.4 L [place] % (Auto) 8.1 Eos % (Auto) 2.0 Baso % (Auto) 0.7 Neut # (Auto) 10.4 H Lymph # (Auto) 1.7 [place] # (Auto) 1.1 H Eos # (Auto) 0.3 Baso # (Auto) 0.1 Sodium Potassium Chloride Carbon Dioxide Anion Gap BUN Creatinine Est GFR ( Amer) Est GFR (Non-Af Amer) POC Glucose (mg/dL) 186 H 133 H Random Glucose Calcium Total Bilirubin AST ALT Alkaline Phosphatase Total Protein Albumin Globulin Albumin/Globulin Ratio 10/10/17 10/10/17 10/10/17 07:25 11:07 16:43 WBC RBC Hgb Hct MCV MCH MCHC RDW Plt Count MPV Neut % (Auto) Lymph % (Auto) [place] % (Auto) Eos % (Auto) Baso % (Auto) Neut # (Auto) Lymph # (Auto) [place] # (Auto) Eos # (Auto) Baso # (Auto) Sodium 134 Potassium 4.0 Chloride 96 L Carbon Dioxide 22 Anion Gap 19 BUN 75 H Creatinine 4.8 H Est GFR ( Amer) 14 Est GFR (Non-Af Amer) 12 POC Glucose (mg/dL) 255 H 197 H Random Glucose 164 H Calcium 7.9 L Total Bilirubin 0.5 AST 22 ALT 23 Alkaline Phosphatase 69 Total Protein 6.7 Albumin 2.9 L Globulin 3.8 Albumin/Globulin Ratio 0.8 L Intake & Output: Intake & Output 10/09/17 10/10/17 10/10/17 18:59 06:59 18:59 Intake Total 650 480 Output Total 600 1100 1000 Balance -600 -450 -520 Intake: Intake, IV Amount 150 Right PICC 150 Oral 500 480 Output: Urine 600 1100 1000 Urethral (Nair) 600 1100 1000 Other: # Bowel Movements 1 1 0 Vital Signs: Vital Signs - 24 hr 10/09/17 10/10/17 10/10/17 23:05 07:05 09:27 Temperature 98.8 F 98.2 F Pulse Rate 75 74 Respiratory 20 20 Rate Blood Pressure 135/64 142/69 142/70 O2 Sat by Pulse 95 96 Oximetry 10/10/17 16:36 Temperature 98 F Pulse Rate 69 Respiratory 20 Rate Blood Pressure 127/64 O2 Sat by Pulse 96 Oximetry - Physical Exam Abdominal Exam: Soft, Non-Tender, Non-Distended Back: No CVA Tenderness Genitalia: Without Inflammation Urinary Catheter Draining Well: Yes Urine Color: Yellow - Male Phallus: Normal Scrotum: Normal - Plan Catheter Care: Yes Additional Information: Imp: prostate ca. retention. P/rec: Catheter in place. Poss trial of voiding. Poss cysto. Poss turbt. Staging w/u for prostate ca, if not previously performed. Poss hormonal therpay (androgen deprivation therapy). Serum PSA, T - Date & Time of Note Date: 10/10/17 Time: 12:10
--- NOTE | 2017-10-10 17:25 | PCM.URO ---
Urology Progress Note - Objective Lab Results Last 24 Hours: Laboratory Results - last 24 hr 10/09/17 10/10/17 10/10/17 21:37 06:08 07:25 WBC 13.6 H RBC 3.07 L Hgb 9.0 L Hct 26.5 L MCV 86.5 MCH 29.4 MCHC 34.0 RDW 15.0 H Plt Count 303 MPV 7.4 Neut % (Auto) 76.8 H Lymph % (Auto) 12.4 L [place] % (Auto) 8.1 Eos % (Auto) 2.0 Baso % (Auto) 0.7 Neut # (Auto) 10.4 H Lymph # (Auto) 1.7 [place] # (Auto) 1.1 H Eos # (Auto) 0.3 Baso # (Auto) 0.1 Sodium Potassium Chloride Carbon Dioxide Anion Gap BUN Creatinine Est GFR ( Amer) Est GFR (Non-Af Amer) POC Glucose (mg/dL) 186 H 133 H Random Glucose Calcium Total Bilirubin AST ALT Alkaline Phosphatase Total Protein Albumin Globulin Albumin/Globulin Ratio 10/10/17 10/10/17 10/10/17 07:25 11:07 16:43 WBC RBC Hgb Hct MCV MCH MCHC RDW Plt Count MPV Neut % (Auto) Lymph % (Auto) [place] % (Auto) Eos % (Auto) Baso % (Auto) Neut # (Auto) Lymph # (Auto) [place] # (Auto) Eos # (Auto) Baso # (Auto) Sodium 134 Potassium 4.0 Chloride 96 L Carbon Dioxide 22 Anion Gap 19 BUN 75 H Creatinine 4.8 H Est GFR ( Amer) 14 Est GFR (Non-Af Amer) 12 POC Glucose (mg/dL) 255 H 197 H Random Glucose 164 H Calcium 7.9 L Total Bilirubin 0.5 AST 22 ALT 23 Alkaline Phosphatase 69 Total Protein 6.7 Albumin 2.9 L Globulin 3.8 Albumin/Globulin Ratio 0.8 L Intake & Output: Intake & Output 10/09/17 10/10/17 10/10/17 18:59 06:59 18:59 Intake Total 650 480 Output Total 600 1100 1000 Balance -600 -450 -520 Intake: Intake, IV Amount 150 Right PICC 150 Oral 500 480 Output: Urine 600 1100 1000 Urethral (Nair) 600 1100 1000 Other: # Bowel Movements 1 1 0 Vital Signs: Vital Signs - 24 hr 10/09/17 10/10/17 10/10/17 23:05 07:05 09:27 Temperature 98.8 F 98.2 F Pulse Rate 75 74 Respiratory 20 20 Rate Blood Pressure 135/64 142/69 142/70 O2 Sat by Pulse 95 96 Oximetry 10/10/17 16:36 Temperature 98 F Pulse Rate 69 Respiratory 20 Rate Blood Pressure 127/64 O2 Sat by Pulse 96 Oximetry - Plan Additional Information: Addendum: PSA= 679. T= 310. Rec: Androgen deprivation therapy, either leuprolide or orchiectomy. I am uncertain re previous bx and staging evaluation. Please advise. - Date & Time of Note Date: 10/10/17 Time: 17:24
--- NOTE | 2017-10-10 21:43 | CP.PCM.PN ---
Subjective - Date & Time of Evaluation Date of Evaluation: 10/10/17 Time of Evaluation: 12:15 - Subjective Subjective: Breathing better. Objective - Vital Signs/Intake and Output Vital Signs (last 24 hours): Temp Pulse Resp BP Pulse Ox 98 F 69 20 127/64 96 10/10/17 16:36 10/10/17 16:36 10/10/17 16:36 10/10/17 16:36 10/10/17 16:36 Intake and Output: 10/10/17 10/11/17 18:59 06:59 Intake Total 480 Output Total 1000 Balance -520 - Medications Medications: Current Medications Albuterol/Ipratropium (Duoneb 3 Mg/0.5 Mg (3 Ml) Ud) 3 ml INH RQ6 [facility] Last Admin: 10/10/17 19:56 Dose: 3 ml Aspirin (Aspirin Chewable) 81 mg PO DAILY [facility] Last Admin: 10/07/17 09:37 Dose: 81 mg Carvedilol (Coreg) 3.125 mg PO BID [facility] Last Admin: 10/10/17 18:17 Dose: 3.125 mg Dorzolamide HCl (Trusopt) 0 ml OU BID [facility] Last Admin: 10/10/17 18:16 Dose: 1 drop Epoetin Jacob (Procrit) 10,000 unit SC MWF [facility] Last Admin: 10/10/17 09:26 Dose: 10,000 unit Ergocalciferol (Drisdol 50,000 Intl Units Cap) 1 cap PO Q7D [facility] Last Admin: 10/09/17 09:47 Dose: 1 cap Ferrous Gluconate (Fergon) 324 mg PO TID [facility] Last Admin: 10/10/17 18:18 Dose: 324 mg Furosemide (Lasix) 40 mg PO DAILY [facility] Last Admin: 10/10/17 09:27 Dose: 40 mg Guaifenesin (Robitussin) 100 mg PO Q4H [facility]N PRN Reason: Cough Last Admin: 10/10/17 09:26 Dose: 100 mg Piperacillin Sod/Tazobactam Sod (Zosyn 2.25 Gm Iv Premix) 2.25 gm in 50 mls @ 100 mls/hr IVPB Q6H [facility] PRN Reason: Protocol Last Admin: 10/10/17 18:15 Dose: 100 mls/hr Insulin Aspart (Novolog) 0 unit SC ACHS [facility] PRN Reason: Protocol Last Admin: 10/10/17 18:19 Dose: 2 unit Insulin Glargine (Lantus) 10 unit SC [facility] Last Admin: 10/09/17 22:16 Dose: 10 units Latanoprost (Xalatan Opht) 1 ml OS HS [facility] Last Admin: 10/09/17 22:16 Dose: 1 ml Magnesium Oxide (Mag-Ox) 400 mg PO BID [facility] Last Admin: 10/10/17 18:17 Dose: 400 mg Montelukast Sodium (Singulair) 10 mg PO [facility] Last Admin: 10/09/17 22:16 Dose: 10 mg Pantoprazole Sodium (Protonix Ec Tab) 40 mg PO DAILY [facility] Last Admin: 10/10/17 09:26 Dose: 40 mg Rosuvastatin Calcium (Crestor) 5 mg PO [facility] Last Admin: 10/09/17 22:16 Dose: 5 mg Saccharomyces Boulardii (Florastor) 250 mg PO BID [facility] Last Admin: 10/10/17 18:18 Dose: 250 mg Sevelamer Carbonate (Renvela) 0.8 gm GT TIDCC [facility] Last Admin: 10/10/17 18:14 Dose: 0.8 gm Sodium Bicarbonate (Sodium Bicarbonate Tab) 650 mg PO BID [facility] Last Admin: 10/10/17 18:17 Dose: 650 mg Tamsulosin HCl (Flomax) 0.4 mg PO DAILY [facility] Last Admin: 10/10/17 09:26 Dose: 0.4 mg Timolol Maleate (Timoptic 0.25% Ophth Soln) 1 drop OU Q12H [facility] Last Admin: 10/10/17 09:27 Dose: 1 drop Vitamin B Complex/Vit C/Folic Acid (Nephro-Fe) 1 tab PO 0800 [facility] Last Admin: 10/10/17 09:26 Dose: 1 tab - Labs Labs: 10/10/17 07:25 10/10/17 07:25 PT 13.6 SECONDS (9.7-12.2) H 10/07/17 06:44 INR 1.2 10/07/17 06:44 APTT 30 SECONDS (21-34) 10/07/17 06:44 - Head Exam Head Exam: ATRAUMATIC - Eye Exam Eye Exam: Normal appearance - ENT Exam ENT Exam: Mucous Membranes Dry - Respiratory Exam Respiratory Exam: NORMAL BREATHING PATTERN - Cardiovascular Exam Cardiovascular Exam: +S1, +S2 - GI/Abdominal Exam GI & Abdominal Exam: Normal Bowel Sounds Assessment and Plan (1) Anemia Assessment & Plan: anemia of CKD and chronic disease; okay to use Procrit despite likely prostate cancer imaging suggestive on bone metastasis; likely contributing to anemia transfusion support PRN Status: Acute (2) Elevated PSA Assessment & Plan: 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
[2017-10-10] MEDS: (Lantus) Insulin Glargine, Recombinant SC SCH (21:58)
[2017-10-10] MEDS: Latanoprost 2.5 ml Opht Soln OS SCH (21:59)
[2017-10-11] MEDS: Albuterol-Ipratrop 3 mg / 0.5 (3 ml) UD INH SCH ×4 (01:46→22:07)
[2017-10-11] MEDS: Piperacill/Tazo 2.25gm in Dex 2.25 GM/50 ML BAG IVPB SCH ×4 (05:21→22:09)
[2017-10-11] MEDS: guaiFENesin 100 mg/5 ml Syrup UD PO PRN ×3 (05:25→22:09)
[2017-10-11 07:21] LABS: BASO # 0.1 K/uL (0.0-0.2); BASO % 1.1 % (0.0-2.0); EOS # 0.5 K/uL (0.0-0.7); EOS % 3.5 % (0.0-4.0); HEMOGLOBIN 10.1 g/dL (12.0-18.0); LYMPH % 15.5 % (20.0-40.0); MEAN CELL VOLUME 87.3 fL (80.0-94.0); MEAN CORPUSCULAR HEMOGLOBIN 29.3 pg (27.0-31.0); MEAN CORPUSCULAR HGB CONC 33.5 g/dL (33.0-37.0); MEAN PLATELET VOLUME 7.3 fL (7.2-11.7); MONO # 1.1 K/uL (0.0-0.8); MONO % 8.3 % (0.0-10.0); NEUT # 9.4 K/uL (1.8-7.0); NEUT % 71.6 % (50.0-75.0); NRBC % 0.2 % (0.0-2.0); RBC 3.47 Mil/uL (4.40-5.90); WHITE BLOOD COUNT 13.1 K/uL (4.8-10.8)
[2017-10-11 07:33] LABS: ALB/GLOB RATIO 0.8 (1.0-2.1); CALCIUM 7.7 mg/dl (8.6-10.4)
[2017-10-11] MEDS: (Novolog) Insulin Aspart, Recombinant 100 u/ml 10 ml vial SC SCH ×4 (08:12→22:11)
[2017-10-11] MEDS: Timolol 0.25% Ophth SOLN OU SCH ×2 (08:58→22:11)
[2017-10-11] MEDS: Sevelamer Carb 0.8 gm/Packet GT SCH (08:59)
[2017-10-11] MEDS: Multivitamin Vitamin B Complex (Nephro-Vite) Tab PO SCH (08:59)
[2017-10-11] MEDS: Pantoprazole 40 mg EC Tab PO SCH (09:00)
[2017-10-11] MEDS: Saccharomyces Boulardi 250 mg Cap PO SCH ×2 (09:00→17:26)
[2017-10-11] MEDS: Magnesium Oxide 400 mg Tab UD PO SCH ×2 (09:00→17:26)
[2017-10-11] MEDS: Dorzolamide 2% Opht Sol 10ml OU SCH ×2 (09:01→17:25)
--- NOTE | 2017-10-11 16:21 | CP.PCM.PN ---
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 fluid overload hx of DM, HTN Vit D def and mild hyperphosphatemia Plan No acute need for renal replacement therapy at this time. d/w pt about likely need for dialysis soon but he is not able to understand much about it. Maintain hemodynamics stable, avoid hypotension, Patient not on ACEI/ARB due to SHANNAN Monitor Input/Output, daily weights and renal function with basic metabolic panel continue with iron supplements, MVI and Flomax 0.4 mg once a day supplement with weekly vit D. PTH level 163 in target range hence d/c calcitriol appreciate Heme evaluation Anemia management as per heme/onc. pt started on epogen Bladder scan done 10/06/17>>600 mL, pt with obstructive uropathy, need indwelling garcia until definite treatment by hence d/w RN to re-insert garcia catheter. and ID following Dose meds/antibiotics for reduced GFR. Avoid fleets enema/magnesium based laxatives. Avoid nephrotoxins/NSAIDs/ iodinated contrast (unless needed emergently) Glycemic control Further work up/management as per primary team Thanks for allowing me to participate in care of your patient. Will follow patient with you. Please call if any Qs. 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 pt seen by heme/onc. Denies OTC/herbal meds or NSAIDs No recent iodinated contrast exposure. No obvious episodes of low BP pt was seen in office recently ~ 2 weeks ago when his serum cr 2.3 and started on epogen for anemia and lasix for edema. pt intubated 10/02/17 evening for respi failure and transferred to MICU ROS: pt feels same. denies CP/SOB. c/o cough Physical Examination: General Appearance: comfortable, in no respiratory distress,. coperative Vitals reviewed and noted as below Head; Atraumatic, normocephalic ENT: normal oral mucosa no thrush/rash or ulcer. EYES: Pupils are equal, round and reactive to light accommodation. Eye muscles and extraocular movement intact. Sclera is anicteric. Neck; supple no lymphadenopathy, no thyromegaly or bruit Lungs: normal respiratory rate/effort. Breath sounds bilateral with basal rales/ crackle Heart: Normal rate. s1s2 normal. No rub or gallop. Extremities: no edema. No varicose veins Neurological: Patient is awake alert follow commands, no focal deficit. Skin: Warm and dry. Normal turgor. No rash. Palpitation: Normal elasticity for age Abdomen: Abdomen is soft. Bowel sounds +. There is no abdominal tenderness, no guarding/rigidity no organomegaly Psych: limited insight. normal affect MSK: no joint tenderness or swelling. Digits and nails normal, no deformity : kidney not palpable bladder not distended. has indwelling garcia draining yellowish urine Labs/imaging reviewed. Past medical history, past surgical history, family history, social history, allergy reviewed and noted as below Family hx: no hx of CKD. Rest non-contributory Renal sonogram severe bilateral hydronephrosis Urine protein creatinine ratio 2 gram Iron saturation 7% ferritin 198 Objective - Vital Signs/Intake and Output Vital Signs (last 24 hours): Temp Pulse Resp BP Pulse Ox 98.1 F 65 20 145/67 97 10/11/17 07:00 10/11/17 07:00 10/11/17 07:00 10/11/17 09:01 10/11/17 07:00 Intake and Output: 10/11/17 10/11/17 06:59 18:59 Intake Total 150 530 Output Total 500 750 Balance -350 -220 - Medications Medications: Current Medications Albuterol/Ipratropium (Duoneb 3 Mg/0.5 Mg (3 Ml) Ud) 3 ml INH RQ6 [facility] Last Admin: 10/11/17 13:04 Dose: 3 ml Aspirin (Aspirin Chewable) 81 mg PO DAILY [facility] Last Admin: 10/07/17 09:37 Dose: 81 mg [facility] ([facility]) [facility] Carvedilol (Coreg) 3.125 mg PO BID [facility] Last Admin: 10/11/17 09:00 Dose: 3.125 mg Dorzolamide HCl (Trusopt) 0 ml OU BID [facility] Last Admin: 10/11/17 09:01 Dose: 1 drop Epoetin Jacob (Procrit) 10,000 unit SC MWF [facility] Last Admin: 10/10/17 09:26 Dose: 10,000 unit Ergocalciferol (Drisdol 50,000 Intl Units Cap) 1 cap PO Q7D [facility] Last Admin: 10/09/17 09:47 Dose: 1 cap Ferrous Gluconate (Fergon) 324 mg PO TID [facility] Last Admin: 10/11/17 13:25 Dose: 324 mg Furosemide (Lasix) 40 mg PO DAILY [facility] Last Admin: 10/11/17 09:01 Dose: 40 mg Guaifenesin (Robitussin) 100 mg PO Q4H PRN PRN Reason: Cough Last Admin: 10/11/17 05:25 Dose: 100 mg Piperacillin Sod/Tazobactam Sod (Zosyn 2.25 Gm Iv Premix) 2.25 gm in 50 mls @ 100 mls/hr IVPB Q6H [facility] PRN Reason: Protocol Last Admin: 10/11/17 10:22 Dose: 100 mls/hr Insulin Aspart (Novolog) 0 unit SC ACHS [facility] PRN Reason: Protocol Last Admin: 10/11/17 12:49 Dose: 4 unit Insulin Glargine (Lantus) 10 unit SC HS [facility] Last Admin: 10/10/17 21:58 Dose: 10 units Latanoprost (Xalatan Opht) 1 ml OS HS [facility] Last Admin: 10/10/17 21:59 Dose: 1 ml Magnesium Oxide (Mag-Ox) 400 mg PO BID [facility] Last Admin: 10/11/17 09:00 Dose: 400 mg Montelukast Sodium (Singulair) 10 mg PO [facility] Last Admin: 10/10/17 21:58 Dose: 10 mg Pantoprazole Sodium (Protonix Ec Tab) 40 mg PO DAILY [facility] Last Admin: 10/11/17 09:00 Dose: 40 mg Rosuvastatin Calcium (Crestor) 5 mg PO [facility] Last Admin: 10/10/17 21:58 Dose: 5 mg Saccharomyces Boulardii (Florastor) 250 mg PO BID [facility] Last Admin: 10/11/17 09:00 Dose: 250 mg Sodium Bicarbonate (Sodium Bicarbonate Tab) 650 mg PO BID [facility] Last Admin: 10/11/17 09:00 Dose: 650 mg Tamsulosin HCl (Flomax) 0.4 mg PO DAILY [facility] Last Admin: 10/11/17 09:00 Dose: 0.4 mg Timolol Maleate (Timoptic 0.25% Oph Soln) 1 drop OU Q12H [facility] Last Admin: 10/11/17 08:58 Dose: 1 drop Vitamin B Complex/Vit C/Folic Acid (Nephro-Fe) 1 tab PO 0800 [facility] Last Admin: 10/11/17 08:59 Dose: 1 tab - Labs Labs: 10/11/17 07:00 10/11/17 07:00 PT 13.6 SECONDS (9.7-12.2) H 10/07/17 06:44 INR 1.2 10/07/17 06:44 APTT 30 SECONDS (21-34) 10/07/17 06:44
--- NOTE | 2017-10-11 19:17 | CP.PCM.PN ---
Subjective - Date & Time of Evaluation Date of Evaluation: 10/11/17 Time of Evaluation: 07:40 - Subjective Subjective: clinically same Objective - Vital Signs/Intake and Output Vital Signs (last 24 hours): Temp Pulse Resp BP Pulse Ox 98.1 F 66 22 153/68 H 99 10/11/17 16:26 10/11/17 16:26 10/11/17 16:26 10/11/17 16:26 10/11/17 16:26 Intake and Output: 10/11/17 10/12/17 18:59 06:59 Intake Total 530 Output Total 750 Balance -220 - Medications Medications: Current Medications Albuterol/Ipratropium (Duoneb 3 Mg/0.5 Mg (3 Ml) Ud) 3 ml INH RQ6 [facility] Last Admin: 10/11/17 13:04 Dose: 3 ml Aspirin (Aspirin Chewable) 81 mg PO DAILY [facility] Last Admin: 10/07/17 09:37 Dose: 81 mg Calcium Acetate (Phoslo) 667 mg PO BIDCC [facility] Last Admin: 10/11/17 17:26 Dose: 667 mg Carvedilol (Coreg) 3.125 mg PO BID [facility] Last Admin: 10/11/17 17:26 Dose: 3.125 mg Dorzolamide HCl (Trusopt) 0 ml OU BID [facility] Last Admin: 10/11/17 17:25 Dose: 1 drop Epoetin Jacob (Procrit) 10,000 unit SC MWF [facility] Last Admin: 10/10/17 09:26 Dose: 10,000 unit Ergocalciferol (Drisdol 50,000 Intl Units Cap) 1 cap PO Q7D [facility] Last Admin: 10/09/17 09:47 Dose: 1 cap Ferrous Gluconate (Fergon) 324 mg PO TID [facility] Last Admin: 10/11/17 17:26 Dose: 324 mg Furosemide (Lasix) 40 mg PO DAILY [facility] Last Admin: 10/11/17 09:01 Dose: 40 mg Guaifenesin (Robitussin) 100 mg PO Q4H PRN PRN Reason: Cough Last Admin: 10/11/17 17:26 Dose: 100 mg Piperacillin Sod/Tazobactam Sod (Zosyn 2.25 Gm Iv Premix) 2.25 gm in 50 mls @ 100 mls/hr IVPB Q6H [facility] PRN Reason: Protocol Last Admin: 10/11/17 17:25 Dose: 100 mls/hr Insulin Aspart (Novolog) 0 unit SC ACHS [facility] PRN Reason: Protocol Last Admin: 10/11/17 17:27 Dose: 4 unit Insulin Glargine (Lantus) 10 unit SC HS [facility] Last Admin: 10/10/17 21:58 Dose: 10 units Latanoprost (Xalatan Opht) 1 ml OS HS [facility] Last Admin: 10/10/17 21:59 Dose: 1 ml Magnesium Oxide (Mag-Ox) 400 mg PO BID [facility] Last Admin: 10/11/17 17:26 Dose: 400 mg Montelukast Sodium (Singulair) 10 mg PO HS [facility] Last Admin: 10/10/17 21:58 Dose: 10 mg Pantoprazole Sodium (Protonix Ec Tab) 40 mg PO DAILY [facility] Last Admin: 10/11/17 09:00 Dose: 40 mg Rosuvastatin Calcium (Crestor) 5 mg PO HS [facility] Last Admin: 10/10/17 21:58 Dose: 5 mg Saccharomyces Boulardii (Florastor) 250 mg PO BID [facility] Last Admin: 10/11/17 17:26 Dose: 250 mg Sodium Bicarbonate (Sodium Bicarbonate Tab) 650 mg PO BID [facility] Last Admin: 10/11/17 17:26 Dose: 650 mg Tamsulosin HCl (Flomax) 0.4 mg PO DAILY [facility] Last Admin: 10/11/17 09:00 Dose: 0.4 mg Timolol Maleate (Timoptic 0.25% Oph Soln) 1 drop OU Q12H [facility] Last Admin: 10/11/17 08:58 Dose: 1 drop Vitamin B Complex/Vit C/Folic Acid (Nephro-Fe) 1 tab PO 0800 [facility] Last Admin: 10/11/17 08:59 Dose: 1 tab - Labs Labs: 10/11/17 07:00 10/11/17 07:00 PT 13.6 SECONDS (9.7-12.2) H 10/07/17 06:44 INR 1.2 10/07/17 06:44 APTT 30 SECONDS (21-34) 10/07/17 06:44 - Constitutional Appears: Well - Head Exam Head Exam: ATRAUMATIC, NORMAL INSPECTION, NORMOCEPHALIC - Eye Exam Eye Exam: EOMI, Normal appearance, PERRL Pupil Exam: NORMAL ACCOMODATION, PERRL - ENT Exam ENT Exam: Mucous Membranes Moist, Normal Exam - Neck Exam Neck Exam: Full ROM, Normal Inspection. absent: Lymphadenopathy - Respiratory Exam Respiratory Exam: Decreased Breath Sounds - Cardiovascular Exam Cardiovascular Exam: REGULAR RHYTHM, +S1, +S2 - GI/Abdominal Exam GI & Abdominal Exam: Soft, Diminished Bowel Sounds - Rectal Exam Rectal Exam: Deferred
[2017-10-11] MEDS: Latanoprost 2.5 ml Opht Soln OS SCH (22:11)
[2017-10-11] MEDS: (Lantus) Insulin Glargine, Recombinant SC SCH (22:11)
--- NOTE | 2017-10-12 01:12 | CP.PCM.PN ---
Subjective - Date & Time of Evaluation Date of Evaluation: 10/11/17 Time of Evaluation: 15:00 - Subjective Subjective: Feels slightly more short of breath today. Objective - Vital Signs/Intake and Output Vital Signs (last 24 hours): Temp Pulse Resp BP Pulse Ox 97.5 F L 65 20 156/66 H 97 10/11/17 23:11 10/11/17 23:11 10/11/17 23:11 10/11/17 23:11 10/11/17 23:11 Intake and Output: 10/11/17 10/12/17 18:59 06:59 Intake Total 530 820 Output Total 750 750 Balance -220 70 - Medications Medications: Current Medications Albuterol/Ipratropium (Duoneb 3 Mg/0.5 Mg (3 Ml) Ud) 3 ml INH RQ6 [facility] Last Admin: 10/11/17 22:07 Dose: 3 ml Aspirin (Aspirin Chewable) 81 mg PO DAILY [facility] Last Admin: 10/07/17 09:37 Dose: 81 mg Calcium Acetate (Phoslo) 667 mg PO BIDCC [facility] Last Admin: 10/11/17 17:26 Dose: 667 mg Carvedilol (Coreg) 3.125 mg PO BID [facility] Last Admin: 10/11/17 17:26 Dose: 3.125 mg Dorzolamide HCl (Trusopt) 0 ml OU BID [facility] Last Admin: 10/11/17 17:25 Dose: 1 drop Epoetin Jacob (Procrit) 10,000 unit SC MWF [facility] Last Admin: 10/10/17 09:26 Dose: 10,000 unit Ergocalciferol (Drisdol 50,000 Intl Units Cap) 1 cap PO Q7D [facility] Last Admin: 10/09/17 09:47 Dose: 1 cap Ferrous Gluconate (Fergon) 324 mg PO TID [facility] Last Admin: 10/11/17 17:26 Dose: 324 mg Furosemide (Lasix) 40 mg PO DAILY [facility] Last Admin: 10/11/17 09:01 Dose: 40 mg Guaifenesin (Robitussin) 100 mg PO Q4H PRN PRN Reason: Cough Last Admin: 10/11/17 22:09 Dose: 100 mg Piperacillin Sod/Tazobactam Sod (Zosyn 2.25 Gm Iv Premix) 2.25 gm in 50 mls @ 100 mls/hr IVPB Q6H [facility] PRN Reason: Protocol Last Admin: 10/11/17 22:09 Dose: 100 mls/hr Insulin Aspart (Novolog) 0 unit SC ACHS [facility] PRN Reason: Protocol Last Admin: 10/11/17 22:11 Dose: Not Given Insulin Glargine (Lantus) 10 unit SC HS [facility] Last Admin: 10/11/17 22:11 Dose: 10 units Latanoprost (Xalatan Opht) 1 ml OS HS [facility] Last Admin: 10/11/17 22:11 Dose: 1 ml Magnesium Oxide (Mag-Ox) 400 mg PO BID [facility] Last Admin: 10/11/17 17:26 Dose: 400 mg Montelukast Sodium (Singulair) 10 mg PO HS [facility] Last Admin: 10/11/17 22:09 Dose: 10 mg Pantoprazole Sodium (Protonix Ec Tab) 40 mg PO DAILY [facility] Last Admin: 10/11/17 09:00 Dose: 40 mg Rosuvastatin Calcium (Crestor) 5 mg PO [facility] Last Admin: 10/11/17 22:09 Dose: 5 mg Saccharomyces Boulardii (Florastor) 250 mg PO BID [facility] Last Admin: 10/11/17 17:26 Dose: 250 mg Sodium Bicarbonate (Sodium Bicarbonate Tab) 650 mg PO BID [facility] Last Admin: 10/11/17 17:26 Dose: 650 mg Tamsulosin HCl (Flomax) 0.4 mg PO DAILY [facility] Last Admin: 10/11/17 09:00 Dose: 0.4 mg Timolol Maleate (Timoptic 0.25% Ophth Soln) 1 drop OU Q12H [facility] Last Admin: 10/11/17 22:11 Dose: 1 drop Vitamin B Complex/Vit C/Folic Acid (Nephro-Fe) 1 tab PO 0800 [facility] Last Admin: 10/11/17 08:59 Dose: 1 tab - Labs Labs: 10/11/17 07:00 10/11/17 07:00 PT 13.6 SECONDS (9.7-12.2) H 10/07/17 06:44 INR 1.2 10/07/17 06:44 APTT 30 SECONDS (21-34) 10/07/17 06:44 - Head Exam Head Exam: ATRAUMATIC - Eye Exam Eye Exam: Normal appearance - ENT Exam ENT Exam: Mucous Membranes Dry - Respiratory Exam Respiratory Exam: NORMAL BREATHING PATTERN - Cardiovascular Exam Cardiovascular Exam: +S1, +S2 - GI/Abdominal Exam GI & Abdominal Exam: Normal Bowel Sounds - Extremities Exam Extremities Exam: Normal Inspection Assessment and Plan (1) Anemia Assessment & Plan: anemia of CKD and chronic disease; okay to use Procrit despite likely prostate cancer imaging suggestive on bone metastasis; likely contributing to anemia transfusion support PRN Status: Acute (2) Elevated PSA Assessment & Plan: 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
[2017-10-12] MEDS: Albuterol-Ipratrop 3 mg / 0.5 (3 ml) UD INH SCH ×4 (01:23→20:28)
[2017-10-12] MEDS: Piperacill/Tazo 2.25gm in Dex 2.25 GM/50 ML BAG IVPB SCH ×4 (04:00→22:00)
[2017-10-12] MEDS: (Novolog) Insulin Aspart, Recombinant 100 u/ml 10 ml vial SC SCH ×4 (07:30→22:01)
[2017-10-12] MEDS: Multivitamin Vitamin B Complex (Nephro-Vite) Tab PO SCH (08:42)
[2017-10-12] MEDS: guaiFENesin 100 mg/5 ml Syrup UD PO PRN ×3 (08:45→21:50)
[2017-10-12] MEDS: Saccharomyces Boulardi 250 mg Cap PO SCH ×2 (09:01→17:20)
[2017-10-12] MEDS: Dorzolamide 2% Opht Sol 10ml OU SCH ×2 (09:01→18:06)
[2017-10-12] MEDS: Pantoprazole 40 mg EC Tab PO SCH (09:01)
[2017-10-12] MEDS: Magnesium Oxide 400 mg Tab UD PO SCH ×2 (09:08→17:20)
[2017-10-12] MEDS: Timolol 0.25% Ophth SOLN OU SCH ×2 (09:10→21:51)
--- NOTE | 2017-10-12 15:39 | CP.PCM.PN ---
Subjective - Date & Time of Evaluation Date of Evaluation: 10/12/17 Time of Evaluation: 08:00 - Subjective Subjective: cultures blood neg thus far Objective - Vital Signs/Intake and Output Vital Signs (last 24 hours): Temp Pulse Resp BP Pulse Ox 98.0 F 64 20 126/58 L 96 10/12/17 15:00 10/12/17 15:00 10/12/17 15:00 10/12/17 15:00 10/12/17 15:00 Intake and Output: 10/12/17 10/12/17 06:59 18:59 Intake Total 820 530 Output Total 750 700 Balance 70 -170 - Medications Medications: Current Medications Albuterol/Ipratropium (Duoneb 3 Mg/0.5 Mg (3 Ml) Ud) 3 ml INH RQ6 [facility] Last Admin: 10/12/17 13:45 Dose: 3 ml Aspirin (Aspirin Chewable) 81 mg PO DAILY [facility] Last Admin: 10/07/17 09:37 Dose: 81 mg Calcium Acetate (Phoslo) 667 mg PO BIDCC [facility] Last Admin: 10/12/17 08:44 Dose: 667 mg Carvedilol (Coreg) 3.125 mg PO BID [facility] Last Admin: 10/12/17 09:01 Dose: 3.125 mg Dorzolamide HCl (Trusopt) 0 ml OU BID [facility] Last Admin: 10/12/17 09:01 Dose: 1 drop Epoetin Jacob (Procrit) 10,000 unit SC MWF [facility] Last Admin: 10/10/17 09:26 Dose: 10,000 unit Ergocalciferol (Drisdol 50,000 Intl Units Cap) 1 cap PO Q7D [facility] Last Admin: 10/09/17 09:47 Dose: 1 cap Ferrous Gluconate (Fergon) 324 mg PO TID [facility] Last Admin: 10/12/17 13:51 Dose: 324 mg Furosemide (Lasix) 40 mg PO DAILY [facility] Last Admin: 10/12/17 09:08 Dose: 40 mg Guaifenesin (Robitussin) 100 mg PO Q4H PRN PRN Reason: Cough Last Admin: 10/12/17 08:45 Dose: 100 mg Piperacillin Sod/Tazobactam Sod (Zosyn 2.25 Gm Iv Premix) 2.25 gm in 50 mls @ 100 mls/hr IVPB Q6H [facility] PRN Reason: Protocol Last Admin: 10/12/17 10:08 Dose: 100 mls/hr Insulin Aspart (Novolog) 0 unit SC ACHS [facility] PRN Reason: Protocol Last Admin: 10/12/17 12:34 Dose: 4 unit Insulin Glargine (Lantus) 10 unit SC HS [facility] Last Admin: 10/11/17 22:11 Dose: 10 units Latanoprost (Xalatan Opht) 1 ml OS HS [facility] Last Admin: 10/11/17 22:11 Dose: 1 ml Magnesium Oxide (Mag-Ox) 400 mg PO BID [facility] Last Admin: 10/12/17 09:08 Dose: 400 mg Montelukast Sodium (Singulair) 10 mg PO HS [facility] Last Admin: 10/11/17 22:09 Dose: 10 mg Pantoprazole Sodium (Protonix Ec Tab) 40 mg PO DAILY [facility] Last Admin: 10/12/17 09:01 Dose: 40 mg Rosuvastatin Calcium (Crestor) 5 mg PO HS [facility] Last Admin: 10/11/17 22:09 Dose: 5 mg Saccharomyces Boulardii (Florastor) 250 mg PO BID [facility] Last Admin: 10/12/17 09:01 Dose: 250 mg Sodium Bicarbonate (Sodium Bicarbonate Tab) 650 mg PO BID [facility] Last Admin: 10/12/17 09:01 Dose: 650 mg Tamsulosin HCl (Flomax) 0.4 mg PO DAILY [facility] Last Admin: 10/12/17 09:01 Dose: 0.4 mg Timolol Maleate (Timoptic 0.25% Ophth Soln) 1 drop OU Q12H [facility] Last Admin: 10/12/17 09:10 Dose: 1 drop Vitamin B Complex/Vit C/Folic Acid (Nephro-Fe) 1 tab PO 0800 [facility] Last Admin: 10/12/17 08:42 Dose: 1 tab - Labs Labs: 10/11/17 07:00 10/11/17 07:00 PT 13.6 SECONDS (9.7-12.2) H 10/07/17 06:44 INR 1.2 10/07/17 06:44 APTT 30 SECONDS (21-34) 10/07/17 06:44 Assessment and Plan (1) Altered mental status Status: Acute (2) Anemia Status: Acute (3) Renal insufficiency Status: Acute (4) Respiratory failure with hypoxia and hypercapnia Status: Acute (5) SHANNAN (acute kidney injury) Status: Acute (6) Chronic anemia Status: Acute (7) Chronic renal insufficiency Status: Acute (8) Diabetes mellitus Status: Acute (9) Elevated PSA Status: Acute
--- NOTE | 2017-10-12 16:25 | CP.PCM.PN ---
Subjective - Date & Time of Evaluation Date of Evaluation: 10/12/17 Time of Evaluation: 07:40 - Subjective Subjective: clinically same Objective - Vital Signs/Intake and Output Vital Signs (last 24 hours): Temp Pulse Resp BP Pulse Ox 98.0 F 64 20 126/58 L 96 10/12/17 15:00 10/12/17 15:00 10/12/17 15:00 10/12/17 15:00 10/12/17 15:00 Intake and Output: 10/12/17 10/12/17 06:59 18:59 Intake Total 820 530 Output Total 750 700 Balance 70 -170 - Medications Medications: Current Medications Albuterol/Ipratropium (Duoneb 3 Mg/0.5 Mg (3 Ml) Ud) 3 ml INH RQ6 [facility] Last Admin: 10/12/17 13:45 Dose: 3 ml Aspirin (Aspirin Chewable) 81 mg PO DAILY [facility] Last Admin: 10/07/17 09:37 Dose: 81 mg Calcium Acetate (Phoslo) 667 mg PO BIDCC [facility] Last Admin: 10/12/17 08:44 Dose: 667 mg Carvedilol (Coreg) 3.125 mg PO BID [facility] Last Admin: 10/12/17 09:01 Dose: 3.125 mg Dorzolamide HCl (Trusopt) 0 ml OU BID [facility] Last Admin: 10/12/17 09:01 Dose: 1 drop Epoetin Jacob (Procrit) 10,000 unit SC MWF [facility] Last Admin: 10/10/17 09:26 Dose: 10,000 unit Ergocalciferol (Drisdol 50,000 Intl Units Cap) 1 cap PO Q7D [facility] Last Admin: 10/09/17 09:47 Dose: 1 cap Ferrous Gluconate (Fergon) 324 mg PO TID [facility] Last Admin: 10/12/17 13:51 Dose: 324 mg Furosemide (Lasix) 40 mg PO DAILY [facility] Last Admin: 10/12/17 09:08 Dose: 40 mg Guaifenesin (Robitussin) 100 mg PO Q4H PRN PRN Reason: Cough Last Admin: 10/12/17 08:45 Dose: 100 mg Piperacillin Sod/Tazobactam Sod (Zosyn 2.25 Gm Iv Premix) 2.25 gm in 50 mls @ 100 mls/hr IVPB Q6H [facility] PRN Reason: Protocol Last Admin: 10/12/17 10:08 Dose: 100 mls/hr Insulin Aspart (Novolog) 0 unit SC ACHS [facility] PRN Reason: Protocol Last Admin: 10/12/17 12:34 Dose: 4 unit Insulin Glargine (Lantus) 10 unit SC HS [facility] Last Admin: 10/11/17 22:11 Dose: 10 units Latanoprost (Xalatan Opht) 1 ml OS HS [facility] Last Admin: 10/11/17 22:11 Dose: 1 ml Magnesium Oxide (Mag-Ox) 400 mg PO BID [facility] Last Admin: 10/12/17 09:08 Dose: 400 mg Montelukast Sodium (Singulair) 10 mg PO HS [facility] Last Admin: 10/11/17 22:09 Dose: 10 mg Pantoprazole Sodium (Protonix Ec Tab) 40 mg PO DAILY [facility] Last Admin: 10/12/17 09:01 Dose: 40 mg Rosuvastatin Calcium (Crestor) 5 mg PO [facility] Last Admin: 10/11/17 22:09 Dose: 5 mg Saccharomyces Boulardii (Florastor) 250 mg PO BID [facility] Last Admin: 10/12/17 09:01 Dose: 250 mg Sodium Bicarbonate (Sodium Bicarbonate Tab) 650 mg PO BID [facility] Last Admin: 10/12/17 09:01 Dose: 650 mg Tamsulosin HCl (Flomax) 0.4 mg PO DAILY [facility] Last Admin: 10/12/17 09:01 Dose: 0.4 mg Timolol Maleate (Timoptic 0.25% Ophth Soln) 1 drop OU Q12H [facility] Last Admin: 10/12/17 09:10 Dose: 1 drop Vitamin B Complex/Vit C/Folic Acid (Nephro-Fe) 1 tab PO 0800 [facility] Last Admin: 10/12/17 08:42 Dose: 1 tab - Labs Labs: 10/11/17 07:00 10/11/17 07:00 PT 13.6 SECONDS (9.7-12.2) H 10/07/17 06:44 INR 1.2 10/07/17 06:44 APTT 30 SECONDS (21-34) 10/07/17 06:44 - Constitutional Appears: Well - Head Exam Head Exam: ATRAUMATIC, NORMAL INSPECTION, NORMOCEPHALIC - Eye Exam Eye Exam: EOMI, Normal appearance, PERRL Pupil Exam: NORMAL ACCOMODATION, PERRL - ENT Exam ENT Exam: Mucous Membranes Moist, Normal Exam - Neck Exam Neck Exam: Full ROM, Normal Inspection. absent: Lymphadenopathy - Respiratory Exam Respiratory Exam: Decreased Breath Sounds - Cardiovascular Exam Cardiovascular Exam: REGULAR RHYTHM, +S1, +S2 - GI/Abdominal Exam GI & Abdominal Exam: Soft, Diminished Bowel Sounds - Rectal Exam Rectal Exam: Deferred
--- NOTE | 2017-10-12 17:11 | CP.PCM.PN ---
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 fluid overload hx of DM, HTN Vit D def and mild hyperphosphatemia Plan No acute need for renal replacement therapy at this time. d/w pt about likely need for dialysis soon but he is not able to understand much about it. Maintain hemodynamics stable, avoid hypotension, Patient not on ACEI/ARB due to SHANNAN Monitor Input/Output, daily weights and renal function with basic metabolic panel continue with iron supplements, MVI and Flomax 0.4 mg once a day supplement with weekly vit D. PTH level 163 in target range hence d/c calcitriol appreciate Heme evaluation Anemia management as per heme/onc. pt started on epogen Bladder scan done 10/06/17>>600 mL, pt with obstructive uropathy, need indwelling garcia until definite treatment by hence d/w RN to re-insert garcia catheter. and ID following Dose meds/antibiotics for reduced GFR. Avoid fleets enema/magnesium based laxatives. Avoid nephrotoxins/NSAIDs/ iodinated contrast (unless needed emergently) Glycemic control Further work up/management as per primary team Thanks for allowing me to participate in care of your patient. Will follow patient with you. Please call if any Qs. 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 pt seen by heme/onc. Denies OTC/herbal meds or NSAIDs No recent iodinated contrast exposure. No obvious episodes of low BP pt was seen in office recently ~ 2 weeks ago when his serum cr 2.3 and started on epogen for anemia and lasix for edema. pt intubated 10/02/17 evening for respi failure and transferred to MICU ROS: pt feels same. denies CP/SOB. Physical Examination: General Appearance: comfortable, in no respiratory distress,. coperative Vitals reviewed and noted as below Head; Atraumatic, normocephalic ENT: normal oral mucosa no thrush/rash or ulcer. EYES: Pupils are equal, round and reactive to light accommodation. Eye muscles and extraocular movement intact. Sclera is anicteric. Neck; supple no lymphadenopathy, no thyromegaly or bruit Lungs: normal respiratory rate/effort. Breath sounds bilateral with basal rales/ crackle Heart: Normal rate. s1s2 normal. No rub or gallop. Extremities: no edema. No varicose veins Neurological: Patient is awake alert follow commands, no focal deficit. Skin: Warm and dry. Normal turgor. No rash. Palpitation: Normal elasticity for age Abdomen: Abdomen is soft. Bowel sounds +. There is no abdominal tenderness, no guarding/rigidity no organomegaly Psych: limited insight. normal affect MSK: no joint tenderness or swelling. Digits and nails normal, no deformity : kidney not palpable bladder not distended. has indwelling garcia draining yellowish urine Labs/imaging reviewed. Past medical history, past surgical history, family history, social history, allergy reviewed and noted as below Family hx: no hx of CKD. Rest non-contributory Renal sonogram severe bilateral hydronephrosis Urine protein creatinine ratio 2 gram Iron saturation 7% ferritin 198 Objective - Vital Signs/Intake and Output Vital Signs (last 24 hours): Temp Pulse Resp BP Pulse Ox 98.0 F 64 20 126/58 L 96 10/12/17 15:00 10/12/17 15:00 10/12/17 15:00 10/12/17 15:00 10/12/17 15:00 Intake and Output: 10/12/17 10/12/17 06:59 18:59 Intake Total 820 530 Output Total 750 700 Balance 70 -170 - Medications Medications: Current Medications Albuterol/Ipratropium (Duoneb 3 Mg/0.5 Mg (3 Ml) Ud) 3 ml INH RQ6 [facility] Last Admin: 10/12/17 13:45 Dose: 3 ml Aspirin (Aspirin Chewable) 81 mg PO DAILY [facility] Last Admin: 10/07/17 09:37 Dose: 81 mg Calcium Acetate (Phoslo) 667 mg PO BIDCC [facility] Last Admin: 10/12/17 08:44 Dose: 667 mg Carvedilol (Coreg) 3.125 mg PO BID [facility] Last Admin: 10/12/17 09:01 Dose: 3.125 mg Dorzolamide HCl (Trusopt) 0 ml OU BID [facility] Last Admin: 10/12/17 09:01 Dose: 1 drop Epoetin Jacob (Procrit) 10,000 unit SC MWF [facility] Last Admin: 10/10/17 09:26 Dose: 10,000 unit Ergocalciferol (Drisdol 50,000 Intl Units Cap) 1 cap PO Q7D [facility] Last Admin: 10/09/17 09:47 Dose: 1 cap Ferrous Gluconate (Fergon) 324 mg PO TID [facility] Last Admin: 10/12/17 13:51 Dose: 324 mg Furosemide (Lasix) 40 mg PO DAILY [facility] Last Admin: 10/12/17 09:08 Dose: 40 mg Guaifenesin (Robitussin) 100 mg PO Q4H PRN PRN Reason: Cough Last Admin: 10/12/17 08:45 Dose: 100 mg Piperacillin Sod/Tazobactam Sod (Zosyn 2.25 Gm Iv Premix) 2.25 gm in 50 mls @ 100 mls/hr IVPB Q6H [facility] PRN Reason: Protocol Last Admin: 10/12/17 10:08 Dose: 100 mls/hr Insulin Aspart (Novolog) 0 unit SC [facility] PRN Reason: Protocol Last Admin: 10/12/17 12:34 Dose: 4 unit Insulin Glargine (Lantus) 10 unit SC HS [facility] Last Admin: 10/11/17 22:11 Dose: 10 units Latanoprost (Xalatan Opht) 1 ml OS HS [facility] Last Admin: 10/11/17 22:11 Dose: 1 ml Magnesium Oxide (Mag-Ox) 400 mg PO BID [facility] Last Admin: 10/12/17 09:08 Dose: 400 mg Montelukast Sodium (Singulair) 10 mg PO [facility] Last Admin: 10/11/17 22:09 Dose: 10 mg Pantoprazole Sodium (Protonix Ec Tab) 40 mg PO DAILY [facility] Last Admin: 10/12/17 09:01 Dose: 40 mg Rosuvastatin Calcium (Crestor) 5 mg PO [facility] Last Admin: 10/11/17 22:09 Dose: 5 mg Saccharomyces Boulardii (Florastor) 250 mg PO BID [facility] Last Admin: 10/12/17 09:01 Dose: 250 mg Sodium Bicarbonate (Sodium Bicarbonate Tab) 650 mg PO BID [facility] Last Admin: 10/12/17 09:01 Dose: 650 mg Tamsulosin HCl (Flomax) 0.4 mg PO DAILY [facility] Last Admin: 10/12/17 09:01 Dose: 0.4 mg Timolol Maleate (Timoptic [facility]% [facility]) 1 drop OU Q12H [facility] Last Admin: 10/12/17 09:10 Dose: 1 drop Vitamin B Complex/Vit C/Folic Acid (Nephro-Fe) 1 tab PO 0800 [facility] Last Admin: 10/12/17 08:42 Dose: 1 tab - Labs Labs: 10/11/17 07:00 10/11/17 07:00 PT 13.6 SECONDS (9.7-12.2) H 10/07/17 06:44 INR 1.2 10/07/17 06:44 APTT 30 SECONDS (21-34) 10/07/17 06:44
[2017-10-12] MEDS: (Lantus) Insulin Glargine, Recombinant SC SCH (21:50)
[2017-10-12] MEDS: Latanoprost 2.5 ml Opht Soln OS SCH (21:51)
[2017-10-13] MEDS: Piperacill/Tazo 2.25gm in Dex 2.25 GM/50 ML BAG IVPB SCH ×4 (04:00→22:15)
[2017-10-13] MEDS: Albuterol-Ipratrop 3 mg / 0.5 (3 ml) UD INH SCH ×4 (06:36→19:13)
[2017-10-13 07:35] LABS: BASO # 0.1 K/uL (0.0-0.2); BASO % 1.3 % (0.0-2.0); EOS # 0.5 K/uL (0.0-0.7); EOS % 5.1 % (0.0-4.0); HEMOGLOBIN 9.1 g/dL (12.0-18.0); LYMPH # 1.6 K/uL (1.0-4.3); LYMPH % 15.8 % (20.0-40.0); MEAN CELL VOLUME 86.6 fL (80.0-94.0); MEAN CORPUSCULAR HEMOGLOBIN 30.3 pg (27.0-31.0); MEAN PLATELET VOLUME 7.3 fL (7.2-11.7); MONO % 9.8 % (0.0-10.0); NEUT # 6.9 K/uL (1.8-7.0); RED CELL DISTRIBUTION WIDTH 14.7 % (11.5-14.5); WHITE BLOOD COUNT 10.1 K/uL (4.8-10.8)
[2017-10-13 07:57] LABS: CALCIUM 8.1 mg/dl (8.6-10.4)
[2017-10-13] MEDS: (Novolog) Insulin Aspart, Recombinant 100 u/ml 10 ml vial SC SCH ×4 (08:34→21:37)
[2017-10-13] MEDS: Saccharomyces Boulardi 250 mg Cap PO SCH ×2 (09:57→17:47)
[2017-10-13] MEDS: Magnesium Oxide 400 mg Tab UD PO SCH ×2 (09:57→17:47)
[2017-10-13] MEDS: Epoetin Alfa 10,000 unit/ml Dialysis SC SCH (09:58)
[2017-10-13] MEDS: Timolol 0.25% Ophth SOLN OU SCH ×2 (09:58→21:45)
[2017-10-13] MEDS: Pantoprazole 40 mg EC Tab PO SCH (09:58)
[2017-10-13] MEDS: guaiFENesin 100 mg/5 ml Syrup UD PO PRN (09:58)
[2017-10-13] MEDS: Multivitamin Vitamin B Complex (Nephro-Vite) Tab PO SCH (09:59)
[2017-10-13] MEDS: Dorzolamide 2% Opht Sol 10ml OU SCH ×2 (09:59→17:52)
--- NOTE | 2017-10-13 13:00 | RAD ---
PROCEDURE: CHEST RADIOGRAPH, 1 VIEW HISTORY: f/u COMPARISON: Comparison made with the chest radiograph and CT scan chest dated 10/04/2017 and 10/02/2017 respectively FINDINGS: Interval removal ETT and NGT. No change right-sided PICC line LUNGS: Previously noted bilateral multifocal infiltrates appear to have improved. PLEURA: No pneumothorax or pleural fluid seen. CARDIOVASCULAR: Normal. OSSEOUS STRUCTURES: No significant abnormalities. VISUALIZED UPPER ABDOMEN: Normal. OTHER FINDINGS: None. IMPRESSION: Previously noted bilateral multifocal infiltrates improved Interval removal ETT and NGT. In situ PICC line unchanged. .
--- NOTE | 2017-10-13 13:44 | PCM.URO ---
Urology Progress Note - Objective Lab Studies: Reviewed (gu plans : to be discuss and full note to be dictated) Lab Results Last 24 Hours: Laboratory Results - last 24 hr 10/12/17 10/12/17 10/13/17 16:10 21:21 06:29 WBC RBC Hgb Hct MCV MCH MCHC RDW Plt Count MPV Neut % (Auto) Lymph % (Auto) [place] % (Auto) Eos % (Auto) Baso % (Auto) Neut # (Auto) Lymph # (Auto) [place] # (Auto) Eos # (Auto) Baso # (Auto) Sodium Potassium Chloride Carbon Dioxide Anion Gap BUN Creatinine Est GFR ( Amer) Est GFR (Non-Af Amer) POC Glucose (mg/dL) 188 H 177 H 138 H Random Glucose Calcium Phosphorus Magnesium 10/13/17 10/13/17 10/13/17 07:12 07:12 11:20 WBC 10.1 RBC 3.00 L Hgb 9.1 L Hct 26.0 L MCV 86.6 MCH 30.3 MCHC 35.0 RDW 14.7 H Plt Count 333 MPV 7.3 Neut % (Auto) 68.0 Lymph % (Auto) 15.8 L [place] % (Auto) 9.8 Eos % (Auto) 5.1 H Baso % (Auto) 1.3 Neut # (Auto) 6.9 Lymph # (Auto) 1.6 [place] # (Auto) 1.0 H Eos # (Auto) 0.5 Baso # (Auto) 0.1 Sodium 134 Potassium 4.5 Chloride 95 L Carbon Dioxide 26 Anion Gap 18 BUN 63 H Creatinine 4.8 H Est GFR ( Amer) 14 Est GFR (Non-Af Amer) 12 POC Glucose (mg/dL) 295 H Random Glucose 126 H Calcium 8.1 L Phosphorus 4.6 H Magnesium 2.3 Intake & Output: Intake & Output 10/12/17 10/13/17 10/13/17 18:59 06:59 18:59 Intake Total 2104 Output Total 1700 675 Balance 404 -675 Intake: Intake, IV Amount 150 Right PICC 150 Oral 1953 Output: Urine 1700 675 Urethral (Nair) 1700 675 Other: # Bowel Movements 1 Vital Signs: Vital Signs - 24 hr 10/12/17 10/12/17 10/13/17 15:00 23:00 07:00 Temperature 98.0 F 98 F 98.0 F Pulse Rate 64 58 L 64 Respiratory 20 20 18 Rate Blood Pressure 126/58 L 134/52 L 158/68 H O2 Sat by Pulse 96 99 95 Oximetry 10/13/17 09:57 Temperature Pulse Rate Respiratory Rate Blood Pressure 158/60 H O2 Sat by Pulse Oximetry
--- NOTE | 2017-10-13 15:29 | CP.PCM.PN ---
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 fluid overload hx of DM, HTN Vit D def and mild hyperphosphatemia Plan No acute need for renal replacement therapy at this time. d/w pt about likely need for dialysis soon but he is not able to understand much about it. called but she was unable to understand either. Maintain hemodynamics stable, avoid hypotension, Patient not on ACEI/ARB due to SHANNAN Monitor Input/Output, daily weights and renal function with basic metabolic panel continue with iron supplements, MVI and Flomax 0.4 mg once a day supplement with weekly vit D. PTH level 163 in target range hence d/c calcitriol appreciate Heme evaluation Anemia management as per heme/onc. pt started on epogen Bladder scan done 10/06/17>>600 mL, pt with obstructive uropathy, need indwelling garcia until definite treatment by hence d/w RN to re-insert garcia catheter. and ID following Dose meds/antibiotics for reduced GFR. Avoid fleets enema/magnesium based laxatives. Avoid nephrotoxins/NSAIDs/ iodinated contrast (unless needed emergently) Glycemic control Further work up/management as per primary team Thanks for allowing me to participate in care of your patient. Will follow patient with you. Please call if any Qs. 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 pt seen by heme/onc. Denies OTC/herbal meds or NSAIDs No recent iodinated contrast exposure. No obvious episodes of low BP pt was seen in office recently ~ 2 weeks ago when his serum cr 2.3 and started on epogen for anemia and lasix for edema. pt intubated 10/02/17 evening for respi failure and transferred to MICU ROS: pt feels same. denies CP/SOB. Physical Examination: General Appearance: comfortable, in no respiratory distress,. coperative Vitals reviewed and noted as below Head; Atraumatic, normocephalic ENT: normal oral mucosa no thrush/rash or ulcer. EYES: Pupils are equal, round and reactive to light accommodation. Eye muscles and extraocular movement intact. Sclera is anicteric. Neck; supple no lymphadenopathy, no thyromegaly or bruit Lungs: normal respiratory rate/effort. Breath sounds bilateral with basal rales/ crackle Heart: Normal rate. s1s2 normal. No rub or gallop. Extremities: no edema. No varicose veins Neurological: Patient is awake alert follow commands, no focal deficit. Skin: Warm and dry. Normal turgor. No rash. Palpitation: Normal elasticity for age Abdomen: Abdomen is soft. Bowel sounds +. There is no abdominal tenderness, no guarding/rigidity no organomegaly Psych: limited insight. normal affect MSK: no joint tenderness or swelling. Digits and nails normal, no deformity : kidney not palpable bladder not distended. has indwelling garcia draining yellowish urine Labs/imaging reviewed. Past medical history, past surgical history, family history, social history, allergy reviewed and noted as below Family hx: no hx of CKD. Rest non-contributory Renal sonogram severe bilateral hydronephrosis Urine protein creatinine ratio 2 gram Iron saturation 7% ferritin 198 Objective - Vital Signs/Intake and Output Vital Signs (last 24 hours): Temp Pulse Resp BP Pulse Ox 98.0 F 64 18 158/60 H 95 10/13/17 07:00 10/13/17 07:00 10/13/17 07:00 10/13/17 09:57 10/13/17 07:00 Intake and Output: 10/13/17 10/13/17 06:59 18:59 Intake Total 530 Output Total 675 1000 Balance -675 -470 - Medications Medications: Current Medications Albuterol/Ipratropium (Duoneb 3 Mg/0.5 Mg (3 Ml) Ud) 3 ml INH RQ6 [facility] Last Admin: 10/13/17 13:08 Dose: 3 ml Aspirin (Aspirin Chewable) 81 mg PO DAILY [facility] Last Admin: 10/07/17 09:37 Dose: 81 mg Calcium Acetate (Phoslo) 667 mg PO BIDCC [facility] Last Admin: 10/13/17 09:58 Dose: 667 mg Carvedilol (Coreg) 3.125 mg PO BID [facility] Last Admin: 10/13/17 09:57 Dose: 3.125 mg Dorzolamide HCl (Trusopt) 0 ml OU BID [facility] Last Admin: 10/13/17 09:59 Dose: 1 drop Epoetin Jacob (Procrit) 10,000 unit SC MWF [facility] Last Admin: 10/13/17 09:58 Dose: 10,000 unit Ergocalciferol (Drisdol 50,000 Intl Units Cap) 1 cap PO Q7D [facility] Last Admin: 10/09/17 09:47 Dose: 1 cap Ferrous Gluconate (Fergon) 324 mg PO TID [facility] Last Admin: 10/13/17 13:40 Dose: 324 mg Furosemide (Lasix) 40 mg PO DAILY [facility] Last Admin: 10/13/17 09:57 Dose: 40 mg Guaifenesin (Robitussin) 100 mg PO Q4H PRN PRN Reason: Cough Last Admin: 10/13/17 09:58 Dose: 100 mg Piperacillin Sod/Tazobactam Sod (Zosyn 2.25 Gm Iv Premix) 2.25 gm in 50 mls @ 100 mls/hr IVPB Q6H [facility] PRN Reason: Protocol Insulin Aspart (Novolog) 0 unit SC [facility] PRN Reason: Protocol Last Admin: 10/13/17 12:46 Dose: 6 unit Insulin Glargine (Lantus) 10 unit SC [facility] Last Admin: 10/12/17 21:50 Dose: 10 units Latanoprost (Xalatan Opht) 1 ml OS [facility] Last Admin: 10/12/17 21:51 Dose: 1 ml Magnesium Oxide (Mag-Ox) 400 mg PO BID [facility] Last Admin: 10/13/17 09:57 Dose: 400 mg Montelukast Sodium (Singulair) 10 mg PO [facility] Last Admin: 10/12/17 21:50 Dose: 10 mg Pantoprazole Sodium (Protonix Ec Tab) 40 mg PO DAILY [facility] Last Admin: 10/13/17 09:58 Dose: 40 mg Rosuvastatin Calcium (Crestor) 5 mg PO [facility] Last Admin: 10/12/17 21:50 Dose: 5 mg Saccharomyces Boulardii (Florastor) 250 mg PO BID [facility] Last Admin: 10/13/17 09:57 Dose: 250 mg Sodium Bicarbonate (Sodium Bicarbonate Tab) 650 mg PO BID [facility] Last Admin: 10/13/17 10:08 Dose: 650 mg Tamsulosin HCl (Flomax) 0.4 mg PO DAILY [facility] Last Admin: 10/13/17 10:08 Dose: 0.4 mg Timolol Maleate (Timoptic 0.25% Oph Soln) 1 drop OU Q12H [facility] Last Admin: 10/13/17 09:58 Dose: 1 drop Vitamin B Complex/Vit C/Folic Acid (Nephro-Fe) 1 tab PO 0800 [facility] Last Admin: 10/13/17 09:59 Dose: 1 tab - Labs Labs: 10/13/17 07:12 10/13/17 07:12 PT 13.6 SECONDS (9.7-12.2) H 10/07/17 06:44 INR 1.2 10/07/17 06:44 APTT 30 SECONDS (21-34) 10/07/17 06:44
--- NOTE | 2017-10-13 15:53 | CP.PCM.PN ---
Subjective - Date & Time of Evaluation Date of Evaluation: 10/13/17 Time of Evaluation: 08:20 - Subjective Subjective: clinically same Objective - Vital Signs/Intake and Output Vital Signs (last 24 hours): Temp Pulse Resp BP Pulse Ox 98.3 F 64 20 116/65 97 10/13/17 15:37 10/13/17 15:37 10/13/17 15:37 10/13/17 15:37 10/13/17 15:37 Intake and Output: 10/13/17 10/13/17 06:59 18:59 Intake Total 530 Output Total 675 1000 Balance -675 -470 - Medications Medications: Current Medications Albuterol/Ipratropium (Duoneb 3 Mg/0.5 Mg (3 Ml) Ud) 3 ml INH RQ6 [facility] Last Admin: 10/13/17 13:08 Dose: 3 ml Aspirin (Aspirin Chewable) 81 mg PO DAILY [facility] Last Admin: 10/07/17 09:37 Dose: 81 mg Calcium Acetate (Phoslo) 667 mg PO BIDCC [facility] Last Admin: 10/13/17 09:58 Dose: 667 mg Carvedilol (Coreg) 3.125 mg PO BID [facility] Last Admin: 10/13/17 09:57 Dose: 3.125 mg Dorzolamide HCl (Trusopt) 0 ml OU BID [facility] Last Admin: 10/13/17 09:59 Dose: 1 drop Epoetin Jacob (Procrit) 10,000 unit SC MWF [facility] Last Admin: 10/13/17 09:58 Dose: 10,000 unit Ergocalciferol (Drisdol 50,000 Intl Units Cap) 1 cap PO Q7D [facility] Last Admin: 10/09/17 09:47 Dose: 1 cap Ferrous Gluconate (Fergon) 324 mg PO TID [facility] Last Admin: 10/13/17 13:40 Dose: 324 mg Furosemide (Lasix) 40 mg PO DAILY [facility] Last Admin: 10/13/17 09:57 Dose: 40 mg Guaifenesin (Robitussin) 100 mg PO Q4H PRN PRN Reason: Cough Last Admin: 10/13/17 09:58 Dose: 100 mg Piperacillin Sod/Tazobactam Sod (Zosyn 2.25 Gm Iv Premix) 2.25 gm in 50 mls @ 100 mls/hr IVPB Q6H [facility] PRN Reason: Protocol Insulin Aspart (Novolog) 0 unit SC [facility] PRN Reason: Protocol Last Admin: 10/13/17 12:46 Dose: 6 unit Insulin Glargine (Lantus) 10 unit SC HS [facility] Last Admin: 10/12/17 21:50 Dose: 10 units Latanoprost (Xalatan Opht) 1 ml OS HS [facility] Last Admin: 10/12/17 21:51 Dose: 1 ml Magnesium Oxide (Mag-Ox) 400 mg PO BID [facility] Last Admin: 10/13/17 09:57 Dose: 400 mg Montelukast Sodium (Singulair) 10 mg PO HS [facility] Last Admin: 10/12/17 21:50 Dose: 10 mg Pantoprazole Sodium (Protonix Ec Tab) 40 mg PO DAILY [facility] Last Admin: 10/13/17 09:58 Dose: 40 mg Rosuvastatin Calcium (Crestor) 5 mg PO HS [facility] Last Admin: 10/12/17 21:50 Dose: 5 mg Saccharomyces Boulardii (Florastor) 250 mg PO BID [facility] Last Admin: 10/13/17 09:57 Dose: 250 mg Sodium Bicarbonate (Sodium Bicarbonate Tab) 650 mg PO BID [facility] Last Admin: 10/13/17 10:08 Dose: 650 mg Tamsulosin HCl (Flomax) 0.4 mg PO DAILY [facility] Last Admin: 10/13/17 10:08 Dose: 0.4 mg Timolol Maleate (Timoptic 0.25% Ophth Soln) 1 drop OU Q12H [facility] Last Admin: 10/13/17 09:58 Dose: 1 drop Vitamin B Complex/Vit C/Folic Acid (Nephro-Fe) 1 tab PO 0800 [facility] Last Admin: 10/13/17 09:59 Dose: 1 tab - Labs Labs: 10/13/17 07:12 10/13/17 07:12 PT 13.6 SECONDS (9.7-12.2) H 10/07/17 06:44 INR 1.2 10/07/17 06:44 APTT 30 SECONDS (21-34) 10/07/17 06:44 - Constitutional Appears: Well - Head Exam Head Exam: ATRAUMATIC, NORMAL INSPECTION, NORMOCEPHALIC - Eye Exam Eye Exam: EOMI, Normal appearance, PERRL Pupil Exam: NORMAL ACCOMODATION, PERRL - ENT Exam ENT Exam: Mucous Membranes Moist, Normal Exam - Neck Exam Neck Exam: Full ROM, Normal Inspection. absent: Lymphadenopathy - Respiratory Exam Respiratory Exam: Decreased Breath Sounds - Cardiovascular Exam Cardiovascular Exam: REGULAR RHYTHM, +S1, +S2 - GI/Abdominal Exam GI & Abdominal Exam: Soft, Diminished Bowel Sounds - Rectal Exam Rectal Exam: Deferred
[2017-10-13] MEDS: (Lantus) Insulin Glargine, Recombinant SC SCH (21:44)
[2017-10-13] MEDS: Latanoprost 2.5 ml Opht Soln OS SCH (21:48)
--- NOTE | 2017-10-13 22:45 | CP.PCM.PN ---
Subjective - Date & Time of Evaluation Date of Evaluation: 10/13/17 Time of Evaluation: 21:10 - Subjective Subjective: Has some cough. Objective - Vital Signs/Intake and Output Vital Signs (last 24 hours): Temp Pulse Resp BP Pulse Ox 98.3 F 64 20 116/65 97 10/13/17 15:37 10/13/17 15:37 10/13/17 15:37 10/13/17 15:37 10/13/17 15:37 Intake and Output: 10/13/17 10/14/17 18:59 06:59 Intake Total 530 Output Total 1000 Balance -470 - Medications Medications: Current Medications Albuterol/Ipratropium (Duoneb 3 Mg/0.5 Mg (3 Ml) Ud) 3 ml INH RQ6 [facility] Last Admin: 10/13/17 19:13 Dose: 3 ml Aspirin (Aspirin Chewable) 81 mg PO DAILY [facility] Last Admin: 10/07/17 09:37 Dose: 81 mg Calcium Acetate (Phoslo) 667 mg PO BIDCC [facility] Last Admin: 10/13/17 17:47 Dose: 667 mg Carvedilol (Coreg) 3.125 mg PO BID [facility] Last Admin: 10/13/17 17:47 Dose: 3.125 mg Dorzolamide HCl (Trusopt) 0 ml OU BID [facility] Last Admin: 10/13/17 17:52 Dose: 1 drop Epoetin Jacob (Procrit) 10,000 unit SC MWF [facility] Last Admin: 10/13/17 09:58 Dose: 10,000 unit Ergocalciferol (Drisdol 50,000 Intl Units Cap) 1 cap PO Q7D [facility] Last Admin: 10/09/17 09:47 Dose: 1 cap Ferrous Gluconate (Fergon) 324 mg PO TID [facility] Last Admin: 10/13/17 17:51 Dose: 324 mg Furosemide (Lasix) 40 mg PO DAILY [facility] Last Admin: 10/13/17 09:57 Dose: 40 mg Guaifenesin (Robitussin) 100 mg PO Q4H PRN PRN Reason: Cough Last Admin: 10/13/17 09:58 Dose: 100 mg Piperacillin Sod/Tazobactam Sod (Zosyn 2.25 Gm Iv Premix) 2.25 gm in 50 mls @ 100 mls/hr IVPB Q6H [facility] PRN Reason: Protocol Last Admin: 10/13/17 22:15 Dose: 100 mls/hr Insulin Aspart (Novolog) 0 unit SC ACHS [facility] PRN Reason: Protocol Last Admin: 10/13/17 21:37 Dose: Not Given Insulin Glargine (Lantus) 10 unit SC HS [facility] Last Admin: 10/13/17 21:44 Dose: 10 units Latanoprost (Xalatan Opht) 1 ml OS [facility] Last Admin: 10/13/17 21:48 Dose: 1 ml Magnesium Oxide (Mag-Ox) 400 mg PO BID [facility] Last Admin: 10/13/17 17:47 Dose: 400 mg Montelukast Sodium (Singulair) 10 mg PO [facility] Last Admin: 10/13/17 21:44 Dose: 10 mg Pantoprazole Sodium (Protonix Ec Tab) 40 mg PO DAILY [facility] Last Admin: 10/13/17 09:58 Dose: 40 mg Rosuvastatin Calcium (Crestor) 5 mg PO [facility] Last Admin: 10/13/17 21:44 Dose: 5 mg Saccharomyces Boulardii (Florastor) 250 mg PO BID [facility] Last Admin: 10/13/17 17:47 Dose: 250 mg Sodium Bicarbonate (Sodium Bicarbonate Tab) 650 mg PO BID [facility] Last Admin: 10/13/17 17:51 Dose: 650 mg Tamsulosin HCl (Flomax) 0.4 mg PO DAILY [facility] Timolol Maleate (Timoptic 0.25% Oph Soln) 1 drop OU Q12H [facility] Last Admin: 10/13/17 21:45 Dose: 1 drop Vitamin B Complex/Vit C/Folic Acid (Nephro-Fe) 1 tab PO 0800 [facility] Last Admin: 10/13/17 09:59 Dose: 1 tab - Labs Labs: 10/13/17 07:12 10/13/17 07:12 PT 13.6 SECONDS (9.7-12.2) H 10/07/17 06:44 INR 1.2 10/07/17 06:44 APTT 30 SECONDS (21-34) 10/07/17 06:44 - Head Exam Head Exam: ATRAUMATIC - Eye Exam Eye Exam: Normal appearance - ENT Exam ENT Exam: Mucous Membranes Dry - Respiratory Exam Respiratory Exam: NORMAL BREATHING PATTERN - Cardiovascular Exam Cardiovascular Exam: +S1, +S2 - GI/Abdominal Exam GI & Abdominal Exam: Normal Bowel Sounds Assessment and Plan (1) Anemia Assessment & Plan: anemia of CKD and chronic disease; okay to use Procrit despite likely prostate cancer imaging suggestive on bone metastasis; likely contributing to anemia transfusion support PRN Status: Acute (2) Elevated PSA Assessment & Plan: 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
--- NOTE | 2017-10-14 00:07 | PCM.URO ---
Urology Progress Note - General General: Tolerating Diet - Subjective Abdominal Pain: No Flank Pain: No Nausea: No Vomiting: No Voiding Well: No Hematuria: No Stone Passed: No Dsypnea: No Chest Pain: No Fever & Chills: No - Objective Lab Studies: Reviewed (renal failure) Lab Results Last 24 Hours: Laboratory Results - last 24 hr 10/13/17 10/13/17 10/13/17 06:29 07:12 07:12 WBC 10.1 RBC 3.00 L Hgb 9.1 L Hct 26.0 L MCV 86.6 MCH 30.3 MCHC 35.0 RDW 14.7 H Plt Count 333 MPV 7.3 Neut % (Auto) 68.0 Lymph % (Auto) 15.8 L [place] % (Auto) 9.8 Eos % (Auto) 5.1 H Baso % (Auto) 1.3 Neut # (Auto) 6.9 Lymph # (Auto) 1.6 [place] # (Auto) 1.0 H Eos # (Auto) 0.5 Baso # (Auto) 0.1 Sodium 134 Potassium 4.5 Chloride 95 L Carbon Dioxide 26 Anion Gap 18 BUN 63 H Creatinine 4.8 H Est GFR ( Amer) 14 Est GFR (Non-Af Amer) 12 POC Glucose (mg/dL) 138 H Random Glucose 126 H Calcium 8.1 L Phosphorus 4.6 H Magnesium 2.3 10/13/17 10/13/17 10/13/17 11:20 16:11 21:20 WBC RBC Hgb Hct MCV MCH MCHC RDW Plt Count MPV Neut % (Auto) Lymph % (Auto) [place] % (Auto) Eos % (Auto) Baso % (Auto) Neut # (Auto) Lymph # (Auto) [place] # (Auto) Eos # (Auto) Baso # (Auto) Sodium Potassium Chloride Carbon Dioxide Anion Gap BUN Creatinine Est GFR ( Amer) Est GFR (Non-Af Amer) POC Glucose (mg/dL) 295 H 221 H 203 H Random Glucose Calcium Phosphorus Magnesium Intake & Output: Intake & Output 10/13/17 10/13/17 10/14/17 06:59 18:59 06:59 Intake Total 530 580 Output Total 675 1000 900 Balance -757 -036 -259 Intake: Intake, IV Amount 50 100 Right PICC 50 100 Oral 480 480 Output: Urine 675 1000 900 Urethral (Nair) 675 1000 900 Other: # Bowel Movements 0 0 Vital Signs: Vital Signs - 24 hr 10/13/17 10/13/17 10/13/17 07:00 09:57 15:37 Temperature 98.0 F 98.3 F Pulse Rate 64 64 Respiratory 18 20 Rate Blood Pressure 158/68 H 158/60 H 116/65 O2 Sat by Pulse 95 97 Oximetry - Physical Exam Abdominal Exam: Soft, Non-Tender, Non-Distended Back: No CVA Tenderness Genitalia: Without Inflammation Urinary Catheter Draining Well: Yes Urine Color: Clear, Yellow - Male Phallus: Normal Testes: Normal: Bilateral - Plan Additional Information: Imp: Improved re hematuria. Probable prostate ca, suggested by physical exam and by PSA. Urinary retention. REC/ Plan: tamsulosisn. trial of voiding. Bone scan. CT scan. Obtain old records re previous bx and staging w/u. Then therapy to be determined. Please determine the results of previous biopsy, if bx was done and if results are available? Discussed w medical staff. - Date & Time of Note Date: 10/13/17 Time: 11:05
[2017-10-14] MEDS: Albuterol-Ipratrop 3 mg / 0.5 (3 ml) UD INH SCH ×3 (01:44→13:08)
[2017-10-14] MEDS: Piperacill/Tazo 2.25gm in Dex 2.25 GM/50 ML BAG IVPB SCH ×3 (04:36→16:27)
[2017-10-14 08:22] VITALS: RESP 18
[2017-10-14] MEDS: (Novolog) Insulin Aspart, Recombinant 100 u/ml 10 ml vial SC SCH ×3 (08:28→17:32)
[2017-10-14] MEDS: Multivitamin Vitamin B Complex (Nephro-Vite) Tab PO SCH (08:28)
[2017-10-14] MEDS: Saccharomyces Boulardi 250 mg Cap PO SCH ×2 (10:34→17:33)
[2017-10-14] MEDS: Magnesium Oxide 400 mg Tab UD PO SCH ×2 (10:34→17:32)
[2017-10-14] MEDS: Pantoprazole 40 mg EC Tab PO SCH (10:35)
[2017-10-14] MEDS: Timolol 0.25% Ophth SOLN OU SCH (10:35)
--- NOTE | 2017-10-14 10:44 | CP.PCM.PN ---
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 fluid overload hx of DM, HTN Vit D def and mild hyperphosphatemia Plan No acute need for renal replacement therapy at this time. d/w pt about likely need for dialysis soon but he is not able to understand much about it. called but she was unable to understand either. Maintain hemodynamics stable, avoid hypotension, Patient not on ACEI/ARB due to SHANNAN Monitor Input/Output, daily weights and renal function with basic metabolic panel continue with iron supplements, MVI and Flomax 0.4 mg once a day supplement with weekly vit D. PTH level 163 in target range hence d/c calcitriol appreciate Heme evaluation Anemia management as per heme/onc. pt started on epogen Bladder scan done 10/06/17>>600 mL, pt with obstructive uropathy, need indwelling garcia until definite treatment by hence d/w RN to re-insert garcia catheter. and ID following Dose meds/antibiotics for reduced GFR. Avoid fleets enema/magnesium based laxatives. Avoid nephrotoxins/NSAIDs/ iodinated contrast (unless needed emergently) Glycemic control Further work up/management as per primary team Thanks for allowing me to participate in care of your patient. Will follow patient with you. Please call if any Qs. 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 pt seen by heme/onc. Denies OTC/herbal meds or NSAIDs No recent iodinated contrast exposure. No obvious episodes of low BP pt was seen in office recently ~ 2 weeks ago when his serum cr 2.3 and started on epogen for anemia and lasix for edema. pt intubated 10/02/17 evening for respi failure and transferred to MICU ROS: pt feels same. denies CP/SOB. Physical Examination: General Appearance: comfortable, in no respiratory distress,. coperative Vitals reviewed and noted as below Head; Atraumatic, normocephalic ENT: normal oral mucosa no thrush/rash or ulcer. EYES: Pupils are equal, round and reactive to light accommodation. Eye muscles and extraocular movement intact. Sclera is anicteric. Neck; supple no lymphadenopathy, no thyromegaly or bruit Lungs: normal respiratory rate/effort. Breath sounds bilateral with basal rales/ crackle Heart: Normal rate. s1s2 normal. No rub or gallop. Extremities: no edema. No varicose veins Neurological: Patient is awake alert follow commands, no focal deficit. ? dementia Skin: Warm and dry. Normal turgor. No rash. Palpitation: Normal elasticity for age Abdomen: Abdomen is soft. Bowel sounds +. There is no abdominal tenderness, no guarding/rigidity no organomegaly Psych: limited insight. normal affect MSK: no joint tenderness or swelling. Digits and nails normal, no deformity : kidney not palpable bladder not distended. has indwelling garcia draining yellowish urine Labs/imaging reviewed. Past medical history, past surgical history, family history, social history, allergy reviewed and noted as below Family hx: no hx of CKD. Rest non-contributory Renal sonogram severe bilateral hydronephrosis Urine protein creatinine ratio 2 gram Iron saturation 7% ferritin 198 Objective - Vital Signs/Intake and Output Vital Signs (last 24 hours): Temp Pulse Resp BP Pulse Ox 97.9 F 65 18 120/61 95 10/14/17 07:15 10/14/17 10:34 10/14/17 07:15 10/14/17 10:35 10/14/17 07:15 Intake and Output: 10/14/17 10/14/17 06:59 18:59 Intake Total 580 Output Total 1500 Balance -920 - Medications Medications: Current Medications Albuterol/Ipratropium (Duoneb 3 Mg/0.5 Mg (3 Ml) Ud) 3 ml INH RQ6 [facility] Last Admin: 10/14/17 07:11 Dose: 3 ml Aspirin (Aspirin Chewable) 81 mg PO DAILY [facility] Last Admin: 10/07/17 09:37 Dose: 81 mg Calcium Acetate (Phoslo) 667 mg PO BIDCC [facility] Last Admin: 10/14/17 08:28 Dose: 667 mg Carvedilol (Coreg) 3.125 mg PO BID [facility] Last Admin: 10/14/17 10:35 Dose: 3.125 mg Dorzolamide HCl (Trusopt) 0 ml OU BID [facility] Last Admin: 10/13/17 17:52 Dose: 1 drop Epoetin Jacob (Procrit) 10,000 unit SC MWF [facility] Last Admin: 10/13/17 09:58 Dose: 10,000 unit Ergocalciferol (Drisdol 50,000 Intl Units Cap) 1 cap PO Q7D [facility] Last Admin: 10/09/17 09:47 Dose: 1 cap Ferrous Gluconate (Fergon) 324 mg PO TID [facility] Last Admin: 10/14/17 10:35 Dose: 324 mg Furosemide (Lasix) 40 mg PO DAILY [facility] Last Admin: 10/14/17 10:35 Dose: 40 mg Guaifenesin (Robitussin) 100 mg PO Q4H PRN PRN Reason: Cough Last Admin: 10/13/17 09:58 Dose: 100 mg Piperacillin Sod/Tazobactam Sod (Zosyn 2.25 Gm Iv Premix) 2.25 gm in 50 mls @ 100 mls/hr IVPB Q6H [facility] PRN Reason: Protocol Last Admin: 10/14/17 04:36 Dose: 100 mls/hr Insulin Aspart (Novolog) 0 unit SC [facility] PRN Reason: Protocol Last Admin: 10/14/17 08:28 Dose: 2 unit Insulin Glargine (Lantus) 10 unit SC [facility] Last Admin: 10/13/17 21:44 Dose: 10 units Latanoprost (Xalatan Opht) 1 ml OS HS [facility] Last Admin: 10/13/17 21:48 Dose: 1 ml Magnesium Oxide (Mag-Ox) 400 mg PO BID [facility] Last Admin: 10/14/17 10:34 Dose: 400 mg Montelukast Sodium (Singulair) 10 mg PO HS [facility] Last Admin: 10/13/17 21:44 Dose: 10 mg Pantoprazole Sodium (Protonix Ec Tab) 40 mg PO DAILY [facility] Last Admin: 10/14/17 10:35 Dose: 40 mg Rosuvastatin Calcium (Crestor) 5 mg PO [facility] Last Admin: 10/13/17 21:44 Dose: 5 mg Saccharomyces Boulardii (Florastor) 250 mg PO BID [facility] Last Admin: 10/14/17 10:34 Dose: 250 mg Sodium Bicarbonate (Sodium Bicarbonate Tab) 650 mg PO BID [facility] Last Admin: 10/14/17 10:34 Dose: 650 mg Tamsulosin HCl (Flomax) 0.4 mg PO DAILY [facility] Last Admin: 10/14/17 10:35 Dose: 0.4 mg Timolol [facility]ate [facility] 1 drop OU Q12H [facility] Last Admin: 10/14/17 10:35 Dose: 1 drop Vitamin B Complex/Vit C/Folic Acid (Nephro-Fe) 1 tab PO 0800 [facility] Last Admin: 10/14/17 08:28 Dose: 1 tab - Labs Labs: 10/13/17 07:12 10/13/17 07:12 PT 13.6 SECONDS (9.7-12.2) H 10/07/17 06:44 INR 1.2 10/07/17 06:44 APTT 30 SECONDS (21-34) 10/07/17 06:44
[2017-10-14] MEDS: Dorzolamide 2% Opht Sol 10ml OU SCH ×2 (10:56→17:33)
--- NOTE | 2017-10-14 11:16 | CP.PCM.PN ---
Subjective - Date & Time of Evaluation Date of Evaluation: 10/14/17 Time of Evaluation: 09:00 - Subjective Subjective: IV rx in progress renewed rx appears congested no fever Objective - Vital Signs/Intake and Output Vital Signs (last 24 hours): Temp Pulse Resp BP Pulse Ox 97.9 F 65 18 120/61 95 10/14/17 07:15 10/14/17 10:34 10/14/17 07:15 10/14/17 10:35 10/14/17 07:15 Intake and Output: 10/14/17 10/14/17 06:59 18:59 Intake Total 580 Output Total 1500 Balance -920 - Medications Medications: Current Medications Albuterol/Ipratropium (Duoneb 3 Mg/0.5 Mg (3 Ml) Ud) 3 ml INH RQ6 [facility] Last Admin: 10/14/17 07:11 Dose: 3 ml Aspirin (Aspirin Chewable) 81 mg PO DAILY [facility] Last Admin: 10/07/17 09:37 Dose: 81 mg [facility] Last Admin: 10/14/17 08:28 Dose: 667 mg Carvedilol (Coreg) 3.125 mg PO BID [facility] Last Admin: 10/14/17 10:35 Dose: 3.125 mg Dorzolamide HCl (Trusopt) 0 ml OU BID [facility] Last Admin: 10/14/17 10:56 Dose: 1 drop Epoetin Jacob (Procrit) 10,000 unit SC MWF [facility] Last Admin: 10/13/17 09:58 Dose: 10,000 unit Ergocalciferol (Drisdol 50,000 Intl Units Cap) 1 cap PO Q7D [facility] Last Admin: 10/09/17 09:47 Dose: 1 cap Ferrous Gluconate (Fergon) 324 mg PO TID [facility] Last Admin: 10/14/17 10:35 Dose: 324 mg Furosemide (Lasix) 40 mg PO DAILY [facility] Last Admin: 10/14/17 10:35 Dose: 40 mg Guaifenesin (Robitussin) 100 mg PO Q4H PRN PRN Reason: Cough Last Admin: 10/13/17 09:58 Dose: 100 mg Piperacillin Sod/Tazobactam Sod (Zosyn 2.25 Gm Iv Premix) 2.25 gm in 50 mls @ 100 mls/hr IVPB Q6H [facility] PRN Reason: Protocol Last Admin: 10/14/17 04:36 Dose: 100 mls/hr Insulin Aspart (Novolog) 0 unit SC ACHS [facility] PRN Reason: Protocol Last Admin: 10/14/17 08:28 Dose: 2 unit Insulin Glargine (Lantus) 10 unit SC HS [facility] Last Admin: 10/13/17 21:44 Dose: 10 units Latanoprost (Xalatan Opht) 1 ml OS HS [facility] Last Admin: 10/13/17 21:48 Dose: 1 ml Magnesium Oxide (Mag-Ox) 400 mg PO BID [facility] Last Admin: 10/14/17 10:34 Dose: 400 mg Montelukast Sodium (Singulair) 10 mg PO HS [facility] Last Admin: 10/13/17 21:44 Dose: 10 mg Pantoprazole Sodium (Protonix Ec Tab) 40 mg PO DAILY [facility] Last Admin: 10/14/17 10:35 Dose: 40 mg Rosuvastatin Calcium (Crestor) 5 mg PO [facility] Last Admin: 10/13/17 21:44 Dose: 5 mg Saccharomyces Boulardii (Florastor) 250 mg PO BID [facility] Last Admin: 10/14/17 10:34 Dose: 250 mg Sodium Bicarbonate (Sodium Bicarbonate Tab) 650 mg PO BID [facility] Last Admin: 10/14/17 10:34 Dose: 650 mg Tamsulosin HCl (Flomax) 0.4 mg PO DAILY [facility] Last Admin: 10/14/17 10:35 Dose: 0.4 mg Timolol Maleate (Timoptic 0.25% [facility]) 1 drop OU Q12H [facility] Last Admin: 10/14/17 10:35 Dose: 1 drop Vitamin B Complex/Vit C/Folic Acid (Nephro-Fe) 1 tab PO 0800 [facility] Last Admin: 10/14/17 08:28 Dose: 1 tab - Labs Labs: 10/13/17 07:12 10/13/17 07:12 PT 13.6 SECONDS (9.7-12.2) H 10/07/17 06:44 INR 1.2 10/07/17 06:44 APTT 30 SECONDS (21-34) 10/07/17 06:44 - Constitutional Appears: Non-toxic, Cachectic, Chronically Ill - Head Exam Head Exam: NORMOCEPHALIC - Eye Exam Eye Exam: PERRL - ENT Exam ENT Exam: Mucous Membranes Dry - Neck Exam Neck Exam: absent: Lymphadenopathy - Respiratory Exam Respiratory Exam: Decreased Breath Sounds - Cardiovascular Exam Cardiovascular Exam: REGULAR RHYTHM - GI/Abdominal Exam GI & Abdominal Exam: Distended, Soft - Rectal Exam Rectal Exam: Deferred - Exam Exam: NORMAL INSPECTION - Extremities Exam Extremities Exam: absent: Pedal Edema - Back Exam Back Exam: absent: CVA tenderness (L), CVA tenderness (R) Assessment and Plan (1) Altered mental status Status: Acute (2) Anemia Status: Acute (3) Renal insufficiency Status: Acute (4) Respiratory failure with hypoxia and hypercapnia Status: Acute (5) SHANNAN (acute kidney injury) Status: Acute (6) Chronic anemia Status: Acute (7) Chronic renal insufficiency Status: Acute (8) Diabetes mellitus Status: Acute (9) Elevated PSA Status: Acute
--- NOTE | 2017-10-14 11:29 | CP.PCM.PN ---
Subjective - Date & Time of Evaluation Date of Evaluation: 10/14/17 Time of Evaluation: 09:00 - Subjective Subjective: STILL CONGESTED NO FEVER IV RX REORDERED Objective - Vital Signs/Intake and Output Vital Signs (last 24 hours): Temp Pulse Resp BP Pulse Ox 97.9 F 65 18 120/61 95 10/14/17 07:15 10/14/17 10:34 10/14/17 07:15 10/14/17 10:35 10/14/17 07:15 Intake and Output: 10/14/17 10/14/17 06:59 18:59 Intake Total 580 Output Total 1500 Balance -920 - Medications Medications: Current Medications Albuterol/Ipratropium (Duoneb 3 Mg/0.5 Mg (3 Ml) Ud) 3 ml INH RQ6 [facility] Last Admin: 10/14/17 07:11 Dose: 3 ml Aspirin (Aspirin Chewable) 81 mg PO DAILY [facility] Last Admin: 10/07/17 09:37 Dose: 81 mg [facility] Last Admin: 10/14/17 08:28 Dose: 667 mg Carvedilol (Coreg) 3.125 mg PO BID [facility] Last Admin: 10/14/17 10:35 Dose: 3.125 mg Dorzolamide HCl (Trusopt) 0 ml OU BID [facility] Last Admin: 10/14/17 10:56 Dose: 1 drop Epoetin Jacob (Procrit) 10,000 unit SC MWF [facility] Last Admin: 10/13/17 09:58 Dose: 10,000 unit Ergocalciferol (Drisdol 50,000 Intl Units Cap) 1 cap PO Q7D [facility] Last Admin: 10/09/17 09:47 Dose: 1 cap Ferrous Gluconate (Fergon) 324 mg PO TID [facility] Last Admin: 10/14/17 10:35 Dose: 324 mg Furosemide (Lasix) 40 mg PO DAILY [facility] Last Admin: 10/14/17 10:35 Dose: 40 mg Guaifenesin (Robitussin) 100 mg PO Q4H PRN PRN Reason: Cough Last Admin: 10/13/17 09:58 Dose: 100 mg Piperacillin Sod/Tazobactam Sod (Zosyn 2.25 Gm Iv Premix) 2.25 gm in 50 mls @ 100 mls/hr IVPB Q6H [facility] PRN Reason: Protocol Last Admin: 10/14/17 04:36 Dose: 100 mls/hr Insulin Aspart (Novolog) 0 unit SC ACHS [facility] PRN Reason: Protocol Last Admin: 10/14/17 08:28 Dose: 2 unit Insulin Glargine (Lantus) 10 unit SC HS [facility] Last Admin: 10/13/17 21:44 Dose: 10 units Latanoprost (Xalatan Opht) 1 ml OS HS [facility] Last Admin: 10/13/17 21:48 Dose: 1 ml Magnesium Oxide (Mag-Ox) 400 mg PO BID [facility] Last Admin: 10/14/17 10:34 Dose: 400 mg Montelukast Sodium (Singulair) 10 mg PO HS [facility] Last Admin: 10/13/17 21:44 Dose: 10 mg Pantoprazole Sodium (Protonix Ec Tab) 40 mg PO DAILY [facility] Last Admin: 10/14/17 10:35 Dose: 40 mg Rosuvastatin Calcium (Crestor) 5 mg PO HS [facility] Last Admin: 10/13/17 21:44 Dose: 5 mg Saccharomyces Boulardii (Florastor) 250 mg PO BID [facility] Last Admin: 10/14/17 10:34 Dose: 250 mg Sodium Bicarbonate (Sodium Bicarbonate Tab) 650 mg PO BID [facility] Last Admin: 10/14/17 10:34 Dose: 650 mg Tamsulosin HCl (Flomax) 0.4 mg PO DAILY [facility] Last Admin: 10/14/17 10:35 Dose: 0.4 mg Timolol Maleate (Timoptic 0.25% Oph Soln) 1 drop OU Q12H [facility] Last Admin: 10/14/17 10:35 Dose: 1 drop Vitamin B Complex/Vit C/Folic Acid (Nephro-Fe) 1 tab PO 0800 [facility] Last Admin: 10/14/17 08:28 Dose: 1 tab - Labs Labs: 10/13/17 07:12 10/13/17 07:12 PT 13.6 SECONDS (9.7-12.2) H 10/07/17 06:44 INR 1.2 10/07/17 06:44 APTT 30 SECONDS (21-34) 10/07/17 06:44 - Constitutional Appears: Non-toxic, Cachectic, Chronically Ill - Head Exam Head Exam: NORMOCEPHALIC - Eye Exam Eye Exam: PERRL - ENT Exam ENT Exam: Mucous Membranes Dry - Neck Exam Neck Exam: absent: Lymphadenopathy - Respiratory Exam Respiratory Exam: Decreased Breath Sounds - Cardiovascular Exam Cardiovascular Exam: REGULAR RHYTHM - GI/Abdominal Exam GI & Abdominal Exam: Distended - Rectal Exam Rectal Exam: Deferred - Exam Exam: NORMAL INSPECTION - Extremities Exam Extremities Exam: absent: Pedal Edema - Back Exam Back Exam: absent: CVA tenderness (L), CVA tenderness (R) - Neurological Exam Neurological Exam: Altered - Psychiatric Exam Psychiatric exam: Depressed Assessment and Plan (1) Altered mental status Status: Acute (2) Anemia Status: Acute (3) Renal insufficiency Status: Acute (4) Respiratory failure with hypoxia and hypercapnia Status: Acute (5) SHANNAN (acute kidney injury) Status: Acute (6) Chronic anemia Status: Acute (7) Chronic renal insufficiency Status: Acute (8) Diabetes mellitus Status: Acute (9) Elevated PSA Status: Acute
--- NOTE | 2017-10-14 13:21 | CP.PCM.PN ---
Subjective - Date & Time of Evaluation Date of Evaluation: 10/14/17 Time of Evaluation: 07:40 - Subjective Subjective: clinically same Objective - Vital Signs/Intake and Output Vital Signs (last 24 hours): Temp Pulse Resp BP Pulse Ox 97.9 F 65 18 120/61 95 10/14/17 07:15 10/14/17 10:34 10/14/17 07:15 10/14/17 10:35 10/14/17 07:15 Intake and Output: 10/14/17 10/14/17 06:59 18:59 Intake Total 580 Output Total 1500 600 Balance -920 -600 - Medications Medications: Current Medications Albuterol/Ipratropium (Duoneb 3 Mg/0.5 Mg (3 Ml) Ud) 3 ml INH RQ6 [facility] [place] Last Admin: 10/14/17 13:08 Dose: Not Given Aspirin (Aspirin Chewable) 81 mg PO DAILY [facility] [place] Last Admin: 10/07/17 09:37 Dose: 81 mg Calcium Acetate (Phoslo) 667 mg PO BIDCC [facility] [place] Last Admin: 10/14/17 08:28 Dose: 667 mg Carvedilol (Coreg) 3.125 mg PO BID [facility] [place] Last Admin: 10/14/17 10:35 Dose: 3.125 mg Dorzolamide HCl (Trusopt) 0 ml OU BID [facility] [place] Last Admin: 10/14/17 10:56 Dose: 1 drop Epoetin Jacob (Procrit) 10,000 unit SC MWF [facility] [place] Last Admin: 10/13/17 09:58 Dose: 10,000 unit Ergocalciferol (Drisdol 50,000 Intl Units Cap) 1 cap PO Q7D [facility] [place] Last Admin: 10/09/17 09:47 Dose: 1 cap Ferrous Gluconate (Fergon) 324 mg PO TID [facility] [place] Last Admin: 10/14/17 13:17 Dose: 324 mg Furosemide (Lasix) 40 mg PO DAILY [facility] [place] Last Admin: 10/14/17 10:35 Dose: 40 mg Guaifenesin (Robitussin) 100 mg PO Q4H PRN PRN Reason: Cough Last Admin: 10/13/17 09:58 Dose: 100 mg Piperacillin Sod/Tazobactam Sod (Zosyn 2.25 Gm Iv Premix) 2.25 gm in 50 mls @ 100 mls/hr IVPB Q6H [facility] PRN Reason: Protocol Last Admin: 10/14/17 13:17 Dose: 100 mls/hr Insulin Aspart (Novolog) 0 unit SC ACHS [facility] [place] PRN Reason: Protocol Last Admin: 10/14/17 08:28 Dose: 2 unit Insulin Glargine (Lantus) 10 unit SC HS [facility] [place] Last Admin: 10/13/17 21:44 Dose: 10 units Latanoprost (Xalatan Opht) 1 ml OS HS [facility] [place] Last Admin: 10/13/17 21:48 Dose: 1 ml Magnesium Oxide (Mag-Ox) 400 mg PO BID [facility] [place] Last Admin: 10/14/17 10:34 Dose: 400 mg Montelukast Sodium (Singulair) 10 mg PO HS [facility] [place] Last Admin: 10/13/17 21:44 Dose: 10 mg Pantoprazole Sodium (Protonix Ec Tab) 40 mg PO DAILY [facility] [place] Last Admin: 10/14/17 10:35 Dose: 40 mg Rosuvastatin Calcium (Crestor) 5 mg PO HS [facility] [place] Last Admin: 10/13/17 21:44 Dose: 5 mg Saccharomyces Boulardii (Florastor) 250 mg PO BID [facility] [place] Last Admin: 10/14/17 10:34 Dose: 250 mg Sodium Bicarbonate (Sodium Bicarbonate Tab) 650 mg PO BID [facility] [place] Last Admin: 10/14/17 10:34 Dose: 650 mg Tamsulosin HCl (Flomax) 0.4 mg PO DAILY [facility] [place] Last Admin: 10/14/17 10:35 Dose: 0.4 mg Timolol Maleate (Timoptic 0.25% Oph Soln) 1 drop OU Q12H [facility] [place] Last Admin: 10/14/17 10:35 Dose: 1 drop Vitamin B Complex/Vit C/Folic Acid (Nephro-Fe) 1 tab PO 0800 [facility] [place] Last Admin: 10/14/17 08:28 Dose: 1 tab - Labs Labs: 10/13/17 07:12 10/13/17 07:12 PT 13.6 SECONDS (9.7-12.2) H 10/07/17 06:44 INR 1.2 10/07/17 06:44 APTT 30 SECONDS (21-34) 10/07/17 06:44 - Constitutional Appears: Well - Head Exam Head Exam: ATRAUMATIC, NORMAL INSPECTION, NORMOCEPHALIC - Eye Exam Eye Exam: EOMI, Normal appearance, PERRL Pupil Exam: NORMAL ACCOMODATION, PERRL - ENT Exam ENT Exam: Mucous Membranes Moist, Normal Exam - Neck Exam Neck Exam: Full ROM, Normal Inspection. absent: Lymphadenopathy - Respiratory Exam Respiratory Exam: Decreased Breath Sounds - Cardiovascular Exam Cardiovascular Exam: REGULAR RHYTHM, +S1, +S2 - GI/Abdominal Exam GI & Abdominal Exam: Soft, Diminished Bowel Sounds - Rectal Exam Rectal Exam: Deferred
--- NOTE | 2017-10-14 13:56 | CT ---
PROCEDURE: CT Abdomen and Pelvis without intravenous contrast HISTORY: prostate cancer r/o mets COMPARISON: 10/17/2016 TECHNIQUE: Without contrast.. Contrast Dose: 0 Radiation dose: Total exam DLP = Total exam DLP = 720.79 mGy-cm. This CT exam was performed using one or more of the following dose reduction techniques: Automated exposure control, adjustment of the mA and/or kV according to patient size, and/or use of iterative reconstruction technique. FINDINGS: LOWER THORAX: Minimal dependent pleural thickening bilaterally. Linear scar/atelectasis left lower lobe. LIVER: Unremarkable. No gross lesion or ductal dilatation. GALLBLADDER AND BILE DUCTS: No calcium bile versus tiny dependent calculi within gallbladder lumen. No mural thickening. PANCREAS: Unremarkable. No gross lesion or ductal dilatation. SPLEEN: Unremarkable. ADRENALS: 1.8 cm low-density left adrenal mass consistent with adenoma. Unilateral left adrenal hypertrophy. KIDNEYS AND URETERS: Bilateral hydroureteronephrosis. No renal mass. No renal calculus. There is left renal vascular calcification noted. VASCULATURE: Unremarkable. No aortic aneurysm. BOWEL: Unremarkable. No obstruction. No gross mural thickening. APPENDIX: Not identified PERITONEUM: Unremarkable. No free fluid. No free air. LYMPH NODES: Extensive retroperitoneal and pelvic lymphadenopathy. BLADDER: Nair catheter noted. Bladder lumen difficult to distinguish from markedly enlarged prostate. No low-density urine appreciable. REPRODUCTIVE: Markedly enlarged prostate with irregular borders. . BONES: Multifocal sclerotic metastasis throughout the lumbar and lower thoracic spine, both iliac bones, sacrum and right and left pubic rami. Representing marked interval change compared to prior CT. OTHER FINDINGS: None. IMPRESSION: Markedly enlarged prostate. Multifocal sclerotic osseous metastasis. Milk of calcium bile versus dependent gallbladder calculi. Bilateral hydroureteronephrosis. Left adrenal adenoma, unchanged. Extensive retroperitoneal and pelvic lymphadenopathy.
--- NOTE | 2017-10-14 14:17 | CP.PCM.PN ---
Subjective - Date & Time of Evaluation Date of Evaluation: 10/14/17 Time of Evaluation: 14:16 - Subjective Subjective: PATIENT WAS ADMITTED FOR SEVERE ANEMIA AND WORSENING RENAL FUNCTION LAY IN BED/ DENIES SOB /DENIES CHEST PAIN NO SIGN OF DISTRESS NOTED Objective - Vital Signs/Intake and Output Vital Signs (last 24 hours): Temp Pulse Resp BP Pulse Ox 97.9 F 65 18 120/61 95 10/14/17 07:15 10/14/17 10:34 10/14/17 07:15 10/14/17 10:35 10/14/17 07:15 Intake and Output: 10/14/17 10/14/17 06:59 18:59 Intake Total 580 Output Total 1500 600 Balance -920 -600 - Medications Medications: Current Medications Albuterol/Ipratropium (Duoneb 3 Mg/0.5 Mg (3 Ml) Ud) 3 ml INH RQ6 [facility] Last Admin: 10/14/17 13:08 Dose: Not Given Aspirin (Aspirin Chewable) 81 mg PO DAILY [facility] Last Admin: 10/07/17 09:37 Dose: 81 mg [facility] Last Admin: 10/14/17 08:28 Dose: 667 mg Carvedilol (Coreg) 3.125 mg PO BID [facility] Last Admin: 10/14/17 10:35 Dose: 3.125 mg Dorzolamide HCl (Trusopt) 0 ml OU BID [facility] Last Admin: 10/14/17 10:56 Dose: 1 drop Epoetin Jacob (Procrit) 10,000 unit SC MWF [facility] Last Admin: 10/13/17 09:58 Dose: 10,000 unit Ergocalciferol (Drisdol 50,000 Intl Units Cap) 1 cap PO Q7D [facility] Last Admin: 10/09/17 09:47 Dose: 1 cap Ferrous Gluconate (Fergon) 324 mg PO TID [facility] Last Admin: 10/14/17 13:17 Dose: 324 mg Furosemide (Lasix) 40 mg PO DAILY [facility] Last Admin: 10/14/17 10:35 Dose: 40 mg Guaifenesin (Robitussin) 100 mg PO Q4H PRN PRN Reason: Cough Last Admin: 10/13/17 09:58 Dose: 100 mg Piperacillin Sod/Tazobactam Sod (Zosyn 2.25 Gm Iv Premix) 2.25 gm in 50 mls @ 100 mls/hr IVPB Q6H [facility] PRN Reason: Protocol Last Admin: 10/14/17 13:17 Dose: 100 mls/hr Insulin Aspart (Novolog) 0 unit SC ACHS [facility] PRN Reason: Protocol Last Admin: 10/14/17 08:28 Dose: 2 unit Insulin Glargine (Lantus) 10 unit SC HS [facility] Last Admin: 10/13/17 21:44 Dose: 10 units Latanoprost (Xalatan Opht) 1 ml OS HS [facility] Last Admin: 10/13/17 21:48 Dose: 1 ml Magnesium Oxide (Mag-Ox) 400 mg PO BID [facility] Last Admin: 10/14/17 10:34 Dose: 400 mg Montelukast Sodium (Singulair) 10 mg PO HS [facility] Last Admin: 10/13/17 21:44 Dose: 10 mg Pantoprazole Sodium (Protonix Ec Tab) 40 mg PO DAILY [facility] Last Admin: 10/14/17 10:35 Dose: 40 mg Rosuvastatin Calcium (Crestor) 5 mg PO [facility] Last Admin: 10/13/17 21:44 Dose: 5 mg Saccharomyces Boulardii (Florastor) 250 mg PO BID [facility] Last Admin: 10/14/17 10:34 Dose: 250 mg Sodium Bicarbonate (Sodium Bicarbonate Tab) 650 mg PO BID [facility] Last Admin: 10/14/17 10:34 Dose: 650 mg Tamsulosin HCl (Flomax) 0.4 mg PO DAILY [facility] Last Admin: 10/14/17 10:35 Dose: 0.4 mg Timolol Maleate (Timoptic 0.25% Ophth Soln) 1 drop OU Q12H [facility] Last Admin: 10/14/17 10:35 Dose: 1 drop Vitamin B Complex/Vit C/Folic Acid (Nephro-Fe) 1 tab PO 0800 [facility] Last Admin: 10/14/17 08:28 Dose: 1 tab - Labs Labs: 10/13/17 07:12 10/13/17 07:12 PT 13.6 SECONDS (9.7-12.2) H 10/07/17 06:44 INR 1.2 10/07/17 06:44 APTT 30 SECONDS (21-34) 10/07/17 06:44 Assessment and Plan - Assessment and Plan (Free Text) Assessment: PATIENT SEEN AND EXAMINED AT THE BEDSIDE LUNG SOUND IMPROVE MARI [place] CATH SECURE IN PLACE/ NO HEMATURIA NOTED REPEAT PSA LAB/ BONE SCAN/ ABD/PELV CAT RESULT TO BE F/U BY DR العراقي IN THE ALF CREATININE IS ELEVATED AND NO ACUTE RENAL INTERVENTION AT THIS TIME PER DR SHEPARD( NEPHRO) WBC IS WNL/AFEBRILE/ VITAL SIGN IS STABLE DISCUSS WITH DR العراقي AND DR Nicole QUEEN WHO CLEAR PATIENT FOR DC PLACE UNDER THE SERVICE OF DR Nicole QUEEN AT [facility]---CALL FOR ADMITTING ORDER CONTINUE ALL YOUR MEDICATION NEW PRESCRIPTION GIVEN ZOSYN 2.25 GM Q6H IVPB FOR [address] ARAYA (ID) PICC LINE CARE PER FACILITY PROTOCOL ACTIVITY TOLERATED AND FACILITY PROTOCOL [place] CATH CARE PER FACILITY PROTOCOL CBC/CMP IN A WEEK PLEASE ARRANGE FOR FOLLOW UP APPPOINTMENT WITH DR العراقي IN 1-2 WEEK WEEK AT HIS OFFICE--CALL FOR APPOINTMENT ARRANGE FOLLOW UP APPOINTMENT WITH DR PATRICK IN 2 WEEK AT HIS OFFICE ---CALL FOR APPOINTMENT ARRANGE FOLLOW UP APPOINTMENT WITH DR SHEPARD IN 1-2 WEEK AT HIS OFFICE ---CALL FOR APPOINTMENT ARRANGE FOLLOW UP APPOINTMENT WITH DR ARAYA 1-2 WEEK AT HIS OFFICE --CALL FOR APPOINTMENT HAVE A FOLLOW UP CHEST X RAY DONE IN 1 WEEK (10/21/17) PRIOR TO HIS APPOINTMENT WITH [facility] (RESULT TO BE F/U WITH DR ARAYA) DISCUSS WITH PATIENT WHO AGREE AND VERBALIZED UNDERSTANDING
[2017-10-14 16:08] VITALS: BP 132/49; PULSE 62; TEMP 98.1; O2SAT 98
--- NOTE | 2017-10-14 17:38 | NM ---
PROCEDURE: Whole Body Bone Scan HISTORY: prostate cancer r/o mets COMPARISON: 09/08/2017 TECHNIQUE: Following administration of 23.6 miCu of Tc MDP multiplanar whole body images were obtained. FINDINGS: Evidence for bony metastatic disease: Stable osseous metastatic disease primarily affecting thoracolumbar spine and pelvis with additional abnormalities in ribs and left femur. Degenerative uptake: Right knee Physiologic uptake: Normal physiologic activity in the kidneys. Other findings: None. IMPRESSION: Stable osseous metastatic disease
--- NOTE | 2017-10-14 23:25 | PCM.URO ---
Urology Progress Note - General General: No Complaints, Tolerating Diet - Subjective Abdominal Pain: No Flank Pain: No Nausea: No Vomiting: No Voiding Well: No (catheter in place) Dsypnea: No Chest Pain: No Fever & Chills: No - Objective Lab Results Last 24 Hours: Laboratory Results - last 24 hr 10/14/17 10/14/17 10/14/17 06:26 11:12 16:35 POC Glucose (mg/dL) 167 H 209 H 199 H Prostate Specific Ag 10/14/17 17:11 POC Glucose (mg/dL) Prostate Specific Ag 471 H Intake & Output: Intake & Output 10/14/17 10/14/17 10/15/17 06:59 18:59 06:59 Intake Total 580 530 Output Total 1500 600 700 Balance -920 -70 -700 Intake: Intake, IV Amount 100 50 Right PICC 100 50 Oral 480 480 Output: Urine 1500 600 700 Urethral (Nair) 1500 600 700 Other: # Bowel Movements 0 Vital Signs: Vital Signs - 24 hr 10/14/17 10/14/17 10/14/17 00:00 07:15 10:34 Temperature 97.0 F L 97.9 F Pulse Rate 66 71 65 Respiratory 20 18 Rate Blood Pressure 138/74 151/65 H 120/61 O2 Sat by Pulse 96 95 Oximetry 10/14/17 10/14/17 10:35 16:00 Temperature 98.1 F Pulse Rate 62 Respiratory 18 Rate Blood Pressure 120/61 132/49 L O2 Sat by Pulse 98 Oximetry - Physical Exam Abdominal Exam: Soft, Non-Tender, Non-Distended Back: No CVA Tenderness Genitalia: Without Inflammation Urinary Catheter Draining Well: Yes Urine Color: Clear - Plan Additional Information: IMP: urinary retention. Hx of prostate ca, although details and documentation of previous biopsy are not available. Possibly metastatic prostate cancer. Abnormal prostate exam. Elevated psa. Rec/p: repeat psa. obtain old records. trial of voiding, on flomax. Discussed with resident staff yesterday and today. Possible need for orchiectomy or leupron. Poss need for prostate bx. Poss need for turp - Date & Time of Note Date: 10/14/17 Time: 10:55
== END 2017-10-14 21:05 | DRG 722 ==
LOC: C.ER 00:02 → UNDOADMIN 06:18 → C.9E 06:18 → C.5S 06:18 → C.9E 07:27 → C.5S 07:27 → C.9I 10-02 18:31 → C.5S 10-07 08:55
PROVIDERS: ADMIT Internal Medicine Nephrology; ATTEND Internal Medicine Nephrology
PROC: 30233N1 Transfusion of Nonautologous Red Blood Cells into Peripheral Vein, Percutaneous Approach (ICD-10-PCS; principal; 2017-09-30)
PROC: 0BH17EZ Insertion of Endotracheal Airway into Trachea, Via Natural or Artificial Opening (ICD-10-PCS; 2017-10-02)
PROC: 5A1945Z Respiratory Ventilation, 24-96 Consecutive Hours (ICD-10-PCS; 2017-10-02)
DX: C61 Malignant neoplasm of prostate (principal); A41.9 Sepsis, unspecified organism; J96.02 Acute respiratory failure with hypercapnia; J96.01 Acute respiratory failure with hypoxia; J18.9 Pneumonia, unspecified organism; R65.20 Severe sepsis without septic shock; J69.0 Pneumonitis due to inhalation of food and vomit; I13.0 Hypertensive heart and chronic kidney disease with heart failure and stage 1 through stage 4 chronic kidney disease, or unspecified chronic kidney disease; N17.9 Acute kidney failure, unspecified; J44.0 Chronic obstructive pulmonary disease with (acute) lower respiratory infection; J44.1 Chronic obstructive pulmonary disease with (acute) exacerbation; N39.0 Urinary tract infection, site not specified; D63.0 Anemia in neoplastic disease; D63.1 Anemia in chronic kidney disease; I50.9 Heart failure, unspecified; E11.65 Type 2 diabetes mellitus with hyperglycemia; E11.22 Type 2 diabetes mellitus with diabetic chronic kidney disease; E55.9 Vitamin D deficiency, unspecified; N18.3 Chronic kidney disease, stage 3 (moderate); E78.5 Hyperlipidemia, unspecified; F03.90 Unspecified dementia, unspecified severity, without behavioral disturbance, psychotic disturbance, mood disturbance, and anxiety; K21.9 Gastro-esophageal reflux disease without esophagitis; N13.9 Obstructive and reflux uropathy, unspecified; R59.0 Localized enlarged lymph nodes; N40.1 Benign prostatic hyperplasia with lower urinary tract symptoms; Z79.4 Long term (current) use of insulin; Z87.891 Personal history of nicotine dependence; R31.9 Hematuria, unspecified; Y65.8 Other specified misadventures during surgical and medical care